=== PATIENT | female | born 1955 | race Caucasian/White ===

== ENCOUNTER → 2016-10-16 | Outpatient (REF) | payer BC | LOC: M SFHCWAGY 14:44 | PROVIDERS: ATTEND Nurse Practitioner Family | DX: Z12.72 Encounter for screening for malignant neoplasm of vagina (principal) ==

== ENCOUNTER → 2016-10-16 | Outpatient (CLI) | payer OTHER ==
--- NOTE | 2016-10-16 16:03 | REPMRS ---
Patient History The patient states she had a clinical breast exam in 10/2016. Patient is postmenopausal. Family history of breast cancer in sister at age 52. Digital Woman Screen Mammo: October 16, 2016 - Exam #: [id number] Bilateral CC and MLO view(s) were taken. Technologist: Chary Reyes, Technologist Prior study comparison: October 30, 2011, digital woman screen mammo performed at [facility] to [facility]. October 24, 2010, bilateral bilat screen digital mammo performed at [facility] to [facility]. FINDINGS: The breast tissue is heterogeneously dense. This may lower the sensitivity of mammography. There has been no change in the appearance of the mammogram from the prior studies. There is a moderate amount of residual fibroglandular tissue which is fairly symmetric. There is no interval development of dominant mass, areas of architectural distortion, or clustered microcalcification typical of malignancy. ASSESSMENT: BI-RADS/ACR category 1 mammogram. Negative. Recommendation Routine screening mammogram in 1 year (for women over age 40). This mammogram was interpreted with the aid of an FDA-approved computer-aided dectection system. Electronically Signed By: Jim Chadwick MD 10/16/16 [id number]
== END ==
LOC: M WHC 14:34
PROVIDERS: ATTEND Nurse Practitioner Family
DX: Z12.31 Encounter for screening mammogram for malignant neoplasm of breast (principal); Z80.3 Family history of malignant neoplasm of breast

== ENCOUNTER → 2017-11-26 | Outpatient (REF) | payer BC ==
[2017-11-27 11:26] LABS: HIV 1&2 SCREEN CENTAUR NEGATIVE (NEGATIVE)
== END ==
LOC: M SFHCWAGY 16:58
DX: Z11.59 Encounter for screening for other viral diseases (principal); Z11.4 Encounter for screening for human immunodeficiency virus [HIV]
CPT/HCPCS: 86803

== ENCOUNTER → 2017-11-26 | Outpatient (CLI) | payer BC | LOC: M WHC 14:35 | DX: Z12.31 Encounter for screening mammogram for malignant neoplasm of breast (principal) | CPT/HCPCS: 77067 ==

== ENCOUNTER → 2018-04-01 | Outpatient (CLI) | payer BC ==
[2018-04-01 18:16] LABS: BASO % 0.6 % (0.0-1.0); EOS # 0.3 10^3/uL (0.0-0.50); EOS % 5.8 % (0.0-3.0); HEMATOCRIT 39.6 % (36.0-47.0); IMMATURE GRANULOCYTE % 0.2 % (0-3.0); LYMPH # 1.7 10^3/uL (1.5-4.5); MEAN CORPUSCULAR HGB CONC 32.8 g/dl (32.0-36.5); MEAN CORPUSCULAR VOLUME 94.3 fl (80.0-96.0); MONO # 0.4 10^3/uL (0.0-0.8); MONO % 8.4 % (0.0-5.0); NEUTROPHILS # 2.3 10^3/uL (1.8-7.7); PLATELET COUNT, AUTOMATED 261 10^3/uL (150-450); RED CELL DISTRIBUTION WIDTH 13.4 % (11.5-14.5); WHITE BLOOD COUNT 4.7 10^3/uL (4.0-10.0)
[2018-04-01 18:34] LABS: C REACTIVE PROTEIN QUANTITATIV < 0.30 MG/DL (0.00-0.30)
[2018-04-01 18:49] LABS: ERYTHROCYTE SEDIMENTATION RATE 24 mm/hr (0-30)
== END ==
LOC: M SMT 11:33
DX: S83.231D Complex tear of medial meniscus, current injury, right knee, subsequent encounter (principal); X58.XXXD Exposure to other specified factors, subsequent encounter; Y92.9 Unspecified place or not applicable
CPT/HCPCS: 86140

== ENCOUNTER → 2018-05-21 | Outpatient (CLI) | payer BC ==
[~2018-05-21] MED LIST: GLUCAGON FOR INJ 1 MG VIAL (J1610) As Ordered; ISOVUE-370 76% 100ML VIAL (Q9967) As Ordered; VoLumen 0.1% SUSPENSION 450ML BOTTLE As Ordered
== END ==
LOC: M RAD 11:46
DX: K22.70 Barrett's esophagus without dysplasia (principal); K21.9 Gastro-esophageal reflux disease without esophagitis; K44.9 Diaphragmatic hernia without obstruction or gangrene; Q45.3 Other congenital malformations of pancreas and pancreatic duct; R19.7 Diarrhea, unspecified
CPT/HCPCS: Q9967

== ENCOUNTER → 2018-11-27 | Outpatient (CLI) | payer BC ==
--- NOTE | 2018-11-27 09:59 | REPMRS ---
Patient History The patient states she had a clinical breast exam in 10/2018. Family history of breast cancer at age 52 in sister. No Hormone Replacement Therapy 3D TOMOSYNTHESIS WAS PERFORMED. Digital Woman Screen Mammo: November 27, 2018 - Exam #: [id number] Bilateral CC and MLO view(s) were taken. Technologist: Chary Reyes, Technologist Prior study comparison: November 26, 2017, digital woman screen mammo performed at [facility]. October 16, 2016, digital woman screen mammo performed at [facility]. FINDINGS: The breast tissue is heterogeneously dense. This may lower the sensitivity of mammography. There has been no change in the appearance of the mammogram from the prior studies. There is a moderate amount of residual fibroglandular tissue which is fairly symmetric. There is no interval development of dominant mass, areas of architectural distortion, or clustered microcalcification typical of malignancy. Assessment: BI-RADS/ACR category 1 mammogram. Negative Mammogram. Recommendation Routine screening mammogram in 1 year (for women over age 40). This mammogram was interpreted with the aid of an FDA-approved computer-aided dectection system. Electronically Signed By: Jim Chadwick MD 11/27/18 [id number]
== END ==
LOC: M WHC 08:34
PROVIDERS: ATTEND Nurse Practitioner Family
DX: Z12.31 Encounter for screening mammogram for malignant neoplasm of breast (principal)

== ENCOUNTER → 2018-11-27 | Outpatient (REF) | payer BC ==
[2018-11-29 16:40] LABS: HPV HYBRID CAPTURE II Negative (Negative)
== END ==
LOC: M SFHCWAGY 08:59
PROVIDERS: ATTEND Nurse Practitioner Family
DX: Z12.4 Encounter for screening for malignant neoplasm of cervix (principal)

== ENCOUNTER → 2018-12-26 | Outpatient (CLI) | payer BC ==
[~2018-12-26] MED LIST changes: +BIOT10TA2 PO; +CAL-TAB4 PO; +CULTCAP2 PO; +D-10TAB2 PO; -GLUCAGON FOR INJ 1 MG VIAL (J1610) As Ordered; -ISOVUE-370 76% 100ML VIAL (Q9967) As Ordered; +MULTCAP PO; +OMEP40CA2 PO; +RA T500C2 PO; +VITA500T3 PO; -VoLumen 0.1% SUSPENSION 450ML BOTTLE As Ordered
[2018-12-26 08:08] LABS: HEMATOCRIT 41.9 % (36.0-47.0); HEMOGLOBIN 13.6 g/dl (12.0-15.5); MEAN CORPUSCULAR HEMOGLOBIN 31.4 pg (27.0-33.0); MEAN CORPUSCULAR HGB CONC 32.5 g/dl (32.0-36.5); MEAN CORPUSCULAR VOLUME 96.8 fl (80.0-96.0); PLATELET COUNT, AUTOMATED 261 10^3/uL (150-450); RED BLOOD COUNT 4.33 10^6/uL (4.00-5.40)
[2018-12-26 08:19] LABS: INR 0.95; PROTHROMBIN TIME 12.8 SECONDS (12.1-14.4)
[2018-12-26 08:32] LABS: ERYTHROCYTE SEDIMENTATION RATE 11 mm/hr (0-30)
[2018-12-26 08:35] LABS: ALBUMIN 3.3 GM/DL (3.2-5.2); ALT/SGPT 20 U/L (12-78); BILIRUBIN,TOTAL 0.4 MG/DL (0.2-1.0); BLOOD UREA NITROGEN 11 MG/DL (7-18); CALCIUM LEVEL 8.4 MG/DL (8.8-10.2); CARBON DIOXIDE LEVEL 28 MEQ/L (21-32); CHLORIDE LEVEL 111 MEQ/L (98-107); CREATININE FOR GFR 0.76 MG/DL (0.55-1.30); GLOMERULAR FILTRATION RATE > 60.0 (>45); GLUCOSE, FASTING 65 MG/DL (70-100); POTASSIUM SERUM 3.8 MEQ/L (3.5-5.1); SODIUM LEVEL 144 MEQ/L (136-145); TOTAL PROTEIN 6.2 GM/DL (6.4-8.2)
--- NOTE | 2018-12-26 09:38 | REP ---
Chest x-ray: Two views. History: Right knee arthritis. Comparison study: April 03, 2016. Findings: The lungs are well inflated and clear. Pleural angles are sharp. Heart size is normal. There are degenerative changes in the thoracic spine. Surgical clips are seen in the right upper quadrant post cholecystectomy. Impression: No active disease. Electronically Signed by Joe Rutledge MD 12/26/2018 09:29 A
--- NOTE | 2018-12-27 12:04 | ECGEPIP ---
Stationary ECG Study [facility] Test Date: 2018-12-26 Pat Name: JOHNSON HUGHES Department: Room: - Gender: F Bundle Cutter: : 1955 Requested By: Conner Shaver Order Number: [id number] Reading MD: Kenney Sams Measurements Intervals [place] Rate: 76 P: 44 [place]: 174 QRS: 24 QRSD: 90 T: 14 QT: 372 QTc: 419 Interpretive Statements SINUS RHYTHM Electronically Signed On 12-27-2018 12:04:44 EDT by Kenney Sams
== END ==
LOC: M LAB 07:32
PROVIDERS: ATTEND Orthopaedic Surgery
DX: Z01.818 Encounter for other preprocedural examination (principal); M17.11 Unilateral primary osteoarthritis, right knee

== ENCOUNTER 2019-01-15 11:11 | Inpatient (IN) | payer BC ==
--- NOTE | 2019-01-07 16:03 | HPE ---
DATE OF ADMISSION: 01/15/2019 ATTENDING PHYSICIAN: Dr. Conner Shaver CHIEF COMPLAINT: Right knee pain and stiffness. HISTORY: The patient is a 63-year-old female with progressively worsening right knee pain and stiffness. She failed to improve with conservative measures. She continues to have symptoms with weightbearing activities and activities of daily living. The patient has consented for an elective right total knee arthroplasty with Dr. Shaver for her continued symptoms. Medical optimization completed by Dr. Garcia and was reviewed today. CURRENT MEDICATIONS: - daily multivitamin - vitamin D3 1000 units daily - vitamin C 500 mg daily - calcium with vitamin D 600/200 mg/units daily - Biotin 5000/5 mg daily - omeprazole 40 mg daily - curcumin 95/500 mg daily - kiersten root daily ALLERGIES TO MEDICATIONS: MORPHINE, TRAMADOL. CHRONIC MEDICAL CONDITIONS: 1. Gastroesophageal reflux disease. 2. Asthma. 3. Degenerative joint disease. PAST SURGICAL HISTORY: 1. Lumbar fusion. 2. Appendectomy. 3. Left knee arthroscopy. 4. Ankle surgery. 5. Exploratory laparoscopy for tubal . 6. Hysterectomy with bilateral salpingo-oophorectomy (BSO). 7. Colonoscopy. 8. Tubal ligation. 9. Bunionectomy. 10. Gastric bypass. 11. Cholecystectomy. SOCIAL HISTORY: The patient is and lives alone. She has never used tobacco use and occasionally uses alcohol. FAMILY HISTORY: Noncontributory. REVIEW OF SYSTEMS: The patient denies fevers, chills, nausea, vomiting or diarrhea. She denies chest pain, shortness of breath, lightheadedness, dizziness or headaches. She continues to have right knee pain with weightbearing activities and activities of daily living. PHYSICAL EXAMINATION: GENERAL: Well-nourished, well-developed female in no apparent distress. She is alert, oriented and cooperative. Mood and affect are appropriate. VITAL SIGNS: Height 62.25 inches, weight 211.2 pounds, temperature 98.4, blood pressure 140/94, respirations 12. NECK: Supple without lymphadenopathy. HEART: Regular rate and rhythm. LUNGS: Clear to auscultation bilaterally. ABDOMEN: Soft and nontender to palpation. Bowel sounds are present. MUSCULOSKELETAL: Inspection of the right knee does show previous arthroscopy portal holes. There was tenderness along the medial and lateral joint lines. The patient can extend knee to 2 degrees and flex to 95 degrees. Right lower extremity strength is 5/5. No hip irritability was elicited with range of motion testing. Her calf is soft, nontender to palpation with no palpable cords noted. She is neurovascularly intact distally. LABORATORY DATA: EKG reveals sinus rhythm. Chest x-ray shows no active disease. Right knee x-ray notable for end-stage degenerative changes. Comprehensive metabolic profile: Fasting glucose decreased at 65, BUN 11, creatinine for GFR 0.76, GFR greater than 60, sodium 144, potassium 3.8, chloride elevated at 111, carbon dioxide 28, anion gap decreased at 5, calcium decreased at 8.4, AST 18, ALT 28, alkaline phosphatase 112, total bilirubin 0.4, total protein decreased at 6.2, albumin 3.3, albumin-globulin ratio 1.14. Complete blood count: ESR 11, WBCs 4, RBCs 4.33, hemoglobin 13.6, hematocrit 41.9, platelets 261. Prothrombin time 12.8, INR 0.95. IMPRESSION: Right knee osteoarthritis with x-rays notable for end-stage degenerative changes. PLAN: The patient has consented for an elective right total knee arthroplasty with Dr. Shaver for her continued symptoms. Medical optimization completed with Dr. Bereket Garcia. [facility] MED[facility] CENTERLuciana
[~2019-01-15] VITALS: Ht 162.6 cm; Wt 96.2 kg
[~2019-01-15 11:11] MED LIST changes: +MIDAZOLAM INJ 2 MG/2 ML VIAL (J2250) IV SCH; +fentaNYL 100 MCG/2 ML INJECTION (J3010) IV SCH
[2019-01-15] MEDS ORDERED: ceFAZolin 2 GM/D5W 50 ML IV BAG (J0690 PER 500MG) As Ordered ONE (11:28)
[2019-01-15] MEDS ORDERED: LR 1,000 ML IV ONE (11:30)
[2019-01-15] MEDS ORDERED: MIDAZOLAM INJ 2 MG/2 ML VIAL (J2250) As Ordered ONE ×2 (12:55→14:30)
[2019-01-15] MEDS ORDERED: fentaNYL 100 MCG/2 ML INJECTION (J3010) As Ordered ONE ×3 (12:55→16:02)
--- NOTE | 2019-01-15 13:29 | IPN ---
DATE: Patient seen and examined. She wishes to go ahead with a right total knee arthroplasty. Her knee was initialed. She understands the nature of the procedure, the risks of bleeding, infection, damage to nerves, vessels, persistent pain, wear loosening, blood clots, medical problems, , among others. She does have morbid obesity, which increases her risks, and she is aware that.
[2019-01-15] MEDS ORDERED: ceFAZolin 1GM INJ (J0690 PER 500MG) As Ordered ONE (13:54)
[2019-01-15] MEDS ORDERED: TRANEXAMIC ACID 100 MG/ML 10ML VIAL As Ordered ONE (13:54)
[2019-01-15] MEDS ORDERED: EPINEPHrine INJ 1 MG/ML 1ML AMP As Ordered ONE (13:55)
[2019-01-15] MEDS ORDERED: BUPIVACAINE LIPOSOME/PF 1.3% 20ML VIAL (13.3MG/ML)(EXPAREL)(C9290 PER1MG) As Ordered ONE (13:55)
[2019-01-15] MEDS ORDERED: ROCURONIUM BROMIDE 50 MG/5 ML VIAL As Ordered ONE (14:30)
[2019-01-15] MEDS ORDERED: LIDOCAINE 2% INJ 100 MG/5 ML SDV (FOR ANES.) As Ordered ONE (14:30)
[2019-01-15] MEDS ORDERED: PROPOFOL 200 MG/20 ML VIAL As Ordered ONE (14:30)
[2019-01-15] MEDS ORDERED: ACETAMINOPHEN 1000MG 100ML IV BTL (OFIRMEV) (J0131 PER 10MG) As Ordered ONE (14:39)
[2019-01-15] MEDS ORDERED: DESFLURANE 240 ML INHALANT As Ordered ONE (14:41)
[2019-01-15] MEDS ORDERED: ONDANSETRON 4MG/2ML VIAL (J2405) As Ordered ONE (14:43)
[2019-01-15] MEDS ORDERED: dexameTHASONE 4 MG/ML 1ML VIAL (J1100) As Ordered ONE (14:43)
[2019-01-15] MEDS ORDERED: SUGAMMADEX SODIUM 500 MG/5 ML VIAL (BRIDION) As Ordered ONE (15:23)
[2019-01-15] MEDS ORDERED: HYDROmorphone HCL 2 MG/ML 1ML VIAL (J1170) As Ordered ONE (15:25)
[2019-01-15] MEDS ORDERED: ROPIvacaine 0.5% 30 ML INJECTION (J2795 PER 1MG) ONE (15:30)
[2019-01-15] MEDS ORDERED: dexameTHASONE 10 MG/1 ML VIAL PRES.FREE (J1100) ONE (15:30)
[2019-01-15] MEDS: oxyCODONE 5MG TAB PO PRN ×2 (16:00→16:46)
[2019-01-15] MEDS: fentaNYL 100 MCG/2 ML INJECTION (J3010) IV PRN ×4 (16:00→16:21)
[2019-01-15] MEDS ORDERED: FLEET ENEMA PR PRN (16:00)
[2019-01-15] MEDS ORDERED: ACETAMINOPHEN TAB 650MG DOSE (2X325MG) PO PRN (16:00)
[2019-01-15] MEDS ORDERED: oxyCODONE 5MG TAB As Ordered ONE (16:02)
[2019-01-15] MEDS ORDERED: LR 1,000 ML IV SCH (16:15)
[2019-01-15] MEDS ORDERED: NORCO, ANEXSIA 5/325MG TABLET (HYDROcodone/ACETAMINOPHEN) PO PRN (16:15)
[2019-01-15] MEDS ORDERED: ONDANSETRON 4MG/2ML VIAL (J2405) IV PRN (16:15)
[2019-01-15] MEDS ORDERED: HYDROMORPHONE HCL 0.5 MG/ 0.5 ML SYRINGE (J1170 PER 1) IV PRN ×2 (16:15)
[2019-01-15] MEDS: ONDANSETRON 4MG/2ML VIAL (J2405) IV PRN ×2 (16:20→17:27)
--- NOTE | 2019-01-15 16:23 | CR.PDOC ---
General Date of Consultation: January 15, 2019 Consultation REASON FOR CONSULTATION/CHIEF COMPLAINT:End stage right knee osteoarthritis s/p elective right knee total arthroplasty HISTORY OF PRESENT ILLNESS: Pt is a 63 yo female with PMH of GERD, asthma, and degenerative joint disease s/p right knee arthroplasty. She reported that she has some headache that she had prior to the surgery at the inferior occipital region; she also reported there's some numbness in her right foot. Pt stated that she has sharp pain in the popliteal fossa after the procedure. Denies any chest pain, palpitation, or dyspnea. Limited info was able to be obtained from patient as pt was just s/p arthroplasty surgery; majority info gathered from past medical records ALLERGIES: Please see below. HOME MEDICATIONS: Please see below. PAST MEDICAL HISTORY: 1. GERD 2. Asthma 3. Degenerative joint disease PAST SURGICAL HISTORY: 1. Lumbar fusion 2. Appendectomy 3. Left knee arthroscopy 4. Ankle surgery 5. Exploratory laparoscopy for tubal 6. Hysterectomy with bilateral salpingo-oophorectomy 7.Colonoscopy 8. Tubal ligation 9. Bunionectomy 10. Gastric bypass 11.Cholecystectomy FAMILY HISTORY: Non-contributory REVIEW OF SYSTEMS: HEENT: Headache in inferior occipital lobe region CARDIOVASCULAR: Denies chest pain, palpitation RESPIRATORY: Denies SOB MUSCULOSKELETAL: Pain in right sided popliteal fossa PHYSICAL EXAMINATION: VITAL SIGNS: Please see below. GENERAL APPEARANCE: Patient is alert and awake HEENT: Head normocephalic, atraumatic, RESPIRATORY: CTA b/l, no rales, wheezing, or rhonchi CARDIOVASCULAR: RRR, no murmur, normal S1 and S2 ABDOMEN: soft, bowel sound aus in all 4 quadrants, no guarding or distension, no tenderness upon palpation in all 4 quadrants EXTREMITIES: Right knee wrapped with dressings. No obvious bleeding or ecchymosis in the exposed area. Pt reported no/decreased sensation on ventral right foot. NEUROLOGICAL: Mildly slowed response but memory and cognitive function grossly intact LABORATORY DATA: Please see below. ASSESSMENT/PLAN: 1. End stage right knee osteoarthritis s/p elective right knee total arthroplasty. Dilaudid and acetaminophen PRN for pain; vital signs as scheduled. CBC and BMP ordered. Oxy therapy. Activity per ortho. PT/OT ordered. Incentive spirometry and lung expansion therapy. ARU admission screen 2. Asthma. Resp treatment as needed. Vital signs as scheduled. Cont to monitor the pt 3. GERD. Cont home med Omperazole 40mg QD PO. Vital Signs/I&O Vital Signs Date Time Temp Pulse Resp B/P (MAP) Pulse Ox O2 Delivery O2 Flow Rate FiO2 01/15/19 16:05 81 18 111/62 (78) 93 2 01/15/19 15:53 97.4 Allergies Coded Allergies: FRUIT (Verified Allergy, Severe, ITCHING, THROAT SWELLING, DIFFICULTY BREATHING, 01/15/19) tree nut (Verified Allergy, Severe, itching throat swells breathing, 01/15/19) morphine (Verified Allergy, Mild, ITCHING NAUSEA, 01/15/19) tetanus toxoid, adsorbed (Verified Adverse Reaction, Intermediate, swelling reddness arm, 01/15/19) tramadol (Verified Adverse Reaction, Intermediate, FELT LIKE HEART ATTACK heaviness in chest, 01/15/19) Home Medications Scheduled Biotin (Biotin) 10 Mg Tablet, 10 MG PO BID, (Reported) Calcium Citrate/Vitamin D2 (Pola-Citrate Plus Vitamin D Tab) 1 Each Tablet, 1 TAB PO DAILY, (Reported) Cholecalciferol (Vitamin D3) (Vitamin D3) 1,000 Unit Tablet, 1,000 UNIT PO BID, (Reported) Cyanocobalamin (Vitamin B-12) (Vitamin B-12) 500 Mcg Tablet, 500 MCG PO DAILY, (Reported) L. Rhamnosus GG/Inulin (Culturelle Capsule) 1 Each Cap.sprink, 1 CAP PO DAILY, (Reported) Multivitamin (Multivitamins) 1 Each Capsule, 1 CAP PO DAILY, (Reported) Omeprazole (Omeprazole) 40 Mg Capsule.dr, 40 MG PO DAILY, (Reported) Turmeric Root Extract (Turmeric) 500 Mg Capsule, 500 MG PO DAILY, (Reported) MICHELINE BASSETT DO January 15, 2019 16:23
[2019-01-15 16:35] LABS: HEMATOCRIT 38.4 % (36.0-47.0); HEMOGLOBIN 12.5 g/dl (12.0-15.5); MEAN CORPUSCULAR HEMOGLOBIN 32.3 pg (27.0-33.0); MEAN CORPUSCULAR HGB CONC 32.6 g/dl (32.0-36.5); MEAN CORPUSCULAR VOLUME 99.2 fl (80.0-96.0); PLATELET COUNT, AUTOMATED 180 10^3/uL (150-450); RED BLOOD COUNT 3.87 10^6/uL (4.00-5.40); WHITE BLOOD COUNT 4.7 10^3/uL (4.0-10.0)
--- NOTE | 2019-01-15 17:00 | REP ---
AP LATERAL RIGHT KNEE, TWO VIEWS: HISTORY: Postop. The patient is status-post right total knee replacement. There is no acute fracture or dislocation. Subcutaneous air and surgical penny are present in the overlying soft tissue. IMPRESSION:The patient is status-post right total knee replacement. There is anatomic alignment. Electronically Signed by Julián Hollingsworth MD 01/15/2019 05:01 P
[2019-01-15 17:03] VITALS: BP 114/56
[2019-01-15 17:04] LABS: BLOOD UREA NITROGEN 10 MG/DL (7-18); CARBON DIOXIDE LEVEL 28 MEQ/L (21-32); CHLORIDE LEVEL 110 MEQ/L (98-107); CREATININE FOR GFR 0.66 MG/DL (0.55-1.30); GLOMERULAR FILTRATION RATE > 60.0 (>45); GLUCOSE, FASTING 131 MG/DL (70-100); POTASSIUM SERUM 3.8 MEQ/L (3.5-5.1); SODIUM LEVEL 143 MEQ/L (136-145)
[2019-01-15] MEDS: LR 1,000 ML IV SCH ×2 (17:08→20:23)
[2019-01-15 17:20] VITALS: BP 125/61
--- NOTE | 2019-01-15 17:32 | RO ---
DATE OF PROCEDURE: 01/15/2019 PREOPERATIVE DIAGNOSIS: Right knee osteoarthritis. POSTOPERATIVE DIAGNOSIS: Right knee osteoarthritis. OPERATIVE PROCEDURE: Right total knee arthroplasty using an Attune rotating platform size 5 narrow femur, size 5 tibial tray, 7 polyethylene and a 32 patellar button. SURGEON: Conner Shaver MD ALLERGIST/PEDIATRIC PULMONOLOGIST: Caprice Shaver NP ANESTHESIA: General. ESTIMATED BLOOD LOSS: Less than 50 mL COMPLICATIONS: None. INDICATION: 63-year-old woman who has had gradually worsening right knee pain. She wished to go ahead with the surgical treatment having failed conservative management. DESCRIPTION OF PROCEDURE: The patient was taken to the operating room and placed in the supine position after general anesthesia was induced. The right lower extremity was prepped and draped in the usual sterile fashion. A tourniquet was inflated after time-out was performed. I then created a longitudinal incision over the anterior aspect of the knee and sharp dissection was carried out down through subcutaneous tissue. I then performed a medial parapatellar arthrotomy per routine and everted the patella to the best of my ability. However, with her obesity it was difficult to get the patella everted. I tried making a pouch anteriorly. I did a lateral release because the retinaculum was tight. There was a fatty lipoma in the anterior soft tissues just anterior to the patella which was excised. I then used the canal initiating reamer on the femoral side followed by the intramedullary guide. This was pinned in place with appropriate amount of valgus and a 9 mm cut. The distal femoral cut was made by the special ed assistant under my direct visualization. We protected soft tissues carefully. The femur was sized to be a 5. The drill holes were placed in the end of the femur with the external rotation dialed in and the 5 cutting block was then secured. The remaining four cuts were made. I then freed up to a posterior cruciate ligament (PCL) attachment, placed posterior retractors and medial and lateral retractors and then used the tibial alignment guide to create the proximal tibia cut. The appropriate amount of valgus and posterior slope was dialed in. This was pinned in place at about 4 mm off the low side. The saw cut was made protecting soft tissues and removed. I removed any osteophytes. I removed any soft tissue and posterior osteophytes. I created a sulcus cut on the end of the femur with the guide. I then sized the tibia to be a size 5. I drilled and broached and the trial components were then inserted and I had also used the spacer block and decided on a size 7 thickness polyethylene, which had excellent fit and fill. The patella was then freehand cut and I sized it to be a 32. The drill holes were placed in the end of the femur and in the patella. The special ed assistant prepared the bone cement in the modern technique. I prepared the bony surfaces, irrigating drying the bony surfaces carefully. I had also injected the Exparel into the deep tissues. Once the surfaces were carefully dried I cemented on the three components, placed the polyethylene and removing any excess bone cement. Patellar clamp was placed. I irrigated copiously, placed the TXA solution. Once the deep tissues had been carefully irrigated, I then closed the deep layer with #1 Vicryl suture running Stratafix suture. We irrigated, closed the subcutaneous with #2-0 Vicryl and the skin with penny. Tourniquet was deflated. Sterile dressing was applied and she was taken to recovery room in stable condition. There were no known complications. The special ed assistant was instrumental in holding retractors and mixing the bone cement, assisting in wound closure, making one of the cuts. ADDENDUM This is coded as unusually difficult case due to the patient's morbid obesity and difficulty with exposure and everting the patella, the lateral release. It prolonged the case and made it technically more challenging due to her BMI that was approaching 40. MTDD
[2019-01-15 18:35] VITALS: BP 109/53
[2019-01-15] MEDS: VITAMIN D 1,000 INTERNATIONAL UNITS TABLET PO SCH (20:23)
[2019-01-15 22:00] VITALS: BP 123/63
[2019-01-16] VITALS (7 sets, daily range): BP systolic 112–115; BP diastolic 57–65; O2SAT 90–98
[2019-01-16 06:30] LABS: HEMATOCRIT 33.8 % (36.0-47.0); HEMOGLOBIN 11.1 g/dl (12.0-15.5); MEAN CORPUSCULAR HEMOGLOBIN 31.7 pg (27.0-33.0); MEAN CORPUSCULAR HGB CONC 32.8 g/dl (32.0-36.5); MEAN CORPUSCULAR VOLUME 96.6 fl (80.0-96.0); PLATELET COUNT, AUTOMATED 192 10^3/uL (150-450); WHITE BLOOD COUNT 7.9 10^3/uL (4.0-10.0)
[2019-01-16] MEDS ORDERED: PERCOCET 5MG/325MG TAB PO PRN ×2 (06:30)
[2019-01-16] MEDS ORDERED: PERC5TAB12 PO (08:28)
[2019-01-16] MEDS ORDERED: XARE10TA PO (08:28)
[2019-01-16] MEDS ORDERED: ONDA4TAB6 PO (08:36)
[2019-01-16] MEDS ORDERED: MULTIVITAMINS/MINERALS THERAP 1 TAB PO SCH (09:00)
[2019-01-16] MEDS ORDERED: CYANOCOBALAMIN 500 MCG TAB PO SCH (09:00)
[2019-01-16] MEDS ORDERED: OMEPRAZOLE 20 MG CAP PO SCH (09:00)
[2019-01-16] MEDS: MOM 30ML SUSPENSION UDC PO SCH ×2 (09:00→09:19)
[2019-01-16] MEDS ORDERED: MIRALAX *UNIT DOSE* 17GM PACKET PO SCH (09:00)
[2019-01-16] MEDS: VITAMIN D 1,000 INTERNATIONAL UNITS TABLET PO SCH (09:20)
--- NOTE | 2019-01-16 12:54 | IPNPDOC ---
Date Seen The patient was seen on 01/16/19. Progress Note SUBJECTIVE: Patient was seen and examined at the bedside with sitting by the window. Pt had just received iv morphine, and was slightly lethargic. She c/o "I'm so sore, and my knee is achy." NO c/o sob, chest pain,tightness. OBJECTIVE: PHYSICAL EXAMINATION: VITAL SIGNS: Please see below. GENERAL APPEARANCE: Patient is alert and awake HEENT: Head normocephalic, atraumatic, RESPIRATORY: CTA b/l, no rales, wheezing, or rhonchi CARDIOVASCULAR: RRR, no murmur, normal S1 and S2 ABDOMEN: soft, bowel sound in all 4 quadrants, no guarding or distension, no tenderness upon palpation in all 4 quadrants EXTREMITIES: postop Right knee wrapped with dressings. pink color warm to touch LABORATORY DATA,IMAGING STUDIES, MICROBIOLOGY: Please see below. ASSESSMENT/PLAN: Pt is a 63 yo female with PMH of GERD, asthma, and degenerative joint disease s/p right knee arthroplasty. She reported that she has some headache that she had prior to the surgery at the inferior occipital region; she also reported there's some numbness in her right foot. Pt stated that she has sharp pain in the popliteal fossa after the procedure. Denies any chest pain, palpitation, or dyspnea. right knee osteoarthritis s/p elective right knee total arthroplasty. Dilaudid and acetaminophen PRN for pain; vital signs as scheduled. CBC and BMP ordered. Oxy therapy. Activity per ortho. PT/OT ordered. Incentive spirometry and lung expansion therapy. ARU admission screen Asthma. Resp treatment as needed. Vital signs as scheduled. Cont to monitor the pt GERD. Cont home med Omperazole 40mg QD PO. History of Gastric bypass. no c/o DVT prophylaxis: per ortho disposition: PT/OT. A-FIB/CHADSVASC A-FIB History Current/History of A-Fib/PAF?: No Current Oral Anticoagulant The: No VS, I&O, 24H, Fishbone Vital Signs/I&O Vital Signs Date Time Temp Pulse Resp B/P (MAP) Pulse Ox O2 Delivery O2 Flow Rate FiO2 01/16/19 11:30 16 01/16/19 06:00 97.5 75 115/57 (76) 99 2.0 I&O- Last 24 Hours up to 6 AM 01/16/19 06:00 Intake Total 3553 ml Output Total 1100 ml Balance 2453 ml Laboratory Data 24H LABS Laboratory Tests 2 01/15/19 16:25: Nucleated Red Blood Cells % (auto) 0.0, Anion Gap 5L, Glomerular Filtration Rate > 60.0, Blood Urea Nitrogen 10, Creatinine 0.66, Sodium Level 143, Potassium Level 3.8, Chloride Level 110H, Carbon Dioxide Level 28, Calcium Level 8.0L 01/16/19 06:11: Nucleated Red Blood Cells % (auto) 0.0 CBC/BMP Laboratory Tests 01/15/19 16:25 Red Blood Count 3.87 L, Mean Corpuscular Volume 99.2 H, Mean Corpuscular Hemoglobin 32.3, Mean Corpuscular Hemoglobin Concent 32.6, Red Cell Distribution Width 12.2, Calcium Level 8.0 L 01/16/19 06:11 Red Blood Count 3.50 L, Mean Corpuscular Volume 96.6 H, Mean Corpuscular Hemoglobin 31.7, Mean Corpuscular Hemoglobin Concent 32.8, Red Cell Distribution Width 11.9 ALYSSA MADERA MD January 16, 2019 12:53
--- NOTE | 2019-01-16 14:57 | IPN ---
DATE: 01/16/2019 CHIEF COMPLAINT: Postoperative day #1 right total knee arthroplasty by Dr. Shaver. HISTORY OF PRESENT ILLNESS: This 63-year-old female had a right total knee arthroplasty yesterday by Dr. Shaver. She is doing well. No concerns aside from a little bit of pain at the right lateral thigh. Otherwise, no shortness breath or chest pain. As she is doing well with no nursing concerns. PHYSICAL EXAMINATION: Well-appearing 63-year-old female in no acute distress. She is alert and oriented times three. Mood and affect pleasant and positive. She is lying supine in hospital bed. We took down the dressing. There is a moderate amount strike through the distal aspect of dressing which appears stable. She could wiggle toes, dorsiflex and plantarflex the foot. The foot is warm and well perfused with good pedal pulses. Vital signs were stable this morning. Respiratory rate 20, 94% on 2 liters nasal prongs. Laboratory examination this morning revealed hemoglobin of 11.1 down 12.5 preoperatively. ASSESSMENT/PLAN: 63-year-old female we will mobilize weightbearing as tolerated. She will be discharged home when she is safe to mobilize and followup with Dr. Shaver.
[2019-01-16] MEDS ORDERED: RIVAROXABAN 10 MG TAB (XARELTO) PO SCH (18:00)
--- NOTE | 2019-02-02 08:29 | DSES ---
DATE OF ADMISSION: 01/15/2019 DATE OF DISCHARGE: 01/18/2019 ATTENDING PHYSICIAN: Dr. Shaver. ADMISSION DIAGNOSIS: Osteoarthritis right knee. OTHER DIAGNOSES: 1. Gastric reflux disease. 2. Asthma. DISCHARGE DIAGNOSIS: Osteoarthritis right knee status post right total knee arthroplasty. OPERATION PERFORMED: Right total knee arthroplasty. HISTORY: This is a 63-year-old female patient with progressively worsening right knee pain and stiffness. She elected for surgery for continued symptoms. She was admitted for elective knee replacement on right side. HOSPITAL COURSE: The patient was admitted on day of surgery underwent a right total knee arthroplasty which was uneventful. She did well in the postoperative period and her hospital course was without complications. She was up with physical therapy per their protocol and her pain was controlled. On day of discharge she was doing well, weightbearing as tolerated on her right lower extremity. She will use Xarelto 10 mg per the protocol as well as 30 days of thromboembolitic deterrent (JOHN) stockings for deep venous thrombosis (DVT) prophylaxis. She will move her right knee to prevent stiffness. She will follow up in our office in 10-14 days. She will resume her preoperative medications and diet. She will use oral pain medications for pain control. She was given instructions to include, but not limited to, wound monitoring and activity limitations. Please refer to the medical record for further details.
== END 2019-01-16 12:40 | disposition home or self-care (01) | DRG 302 ==
LOC: M OR 11:11 → M MS5PR 17:00
PROVIDERS: ADMIT Orthopaedic Surgery; ATTEND Orthopaedic Surgery
PROC: 0SRC0J9 Replacement of Right Knee Joint with Synthetic Substitute, Cemented, Open Approach (ICD-10-PCS; principal; 2019-01-15 13:00)
DX: M17.11 Unilateral primary osteoarthritis, right knee (principal); J45.909 Unspecified asthma, uncomplicated; Z79.899 Other long term (current) drug therapy; K21.9 Gastro-esophageal reflux disease without esophagitis; Z88.5 Allergy status to narcotic agent; Z88.8 Allergy status to other drugs, medicaments and biological substances; Z88.7 Allergy status to serum and vaccine; Z91.018 Allergy to other foods

== ENCOUNTER → 2019-08-31 | Outpatient (CLI) | payer MEDICARE ==
[~2019-08-31] MED LIST changes: +CYAN500T8 PO; +D 202000 PO; -MIDAZOLAM INJ 2 MG/2 ML VIAL (J2250) IV SCH; -OMEP40CA2 PO; +OMEP40CA97 PO; +ONDA4TAB6 PO; +PERC5TAB12 PO; -VITA500T3 PO; +XARE10TA PO; -fentaNYL 100 MCG/2 ML INJECTION (J3010) IV SCH
--- NOTE | 2019-08-31 17:53 | REP ---
Clinical: Osteoarthritis . Comparison: 12/26/2018 . Technique: PA and lateral. Findings: The mediastinum and cardiac silhouette are normal. The lung khan are clear and without acute consolidation, effusion, or pneumothorax. The skeletal structures are intact and normal. Impression: 1. No acute cardiopulmonary process. Electronically Signed by Hardy Schmitt MD 08/31/2019 05:44 P
[2019-08-31 18:16] LABS: HEMATOCRIT 41.4 % (36.0-47.0); MEAN CORPUSCULAR HEMOGLOBIN 31.3 pg (27.0-33.0); MEAN CORPUSCULAR HGB CONC 31.4 g/dl (32.0-36.5); MEAN CORPUSCULAR VOLUME 99.8 fl (80.0-96.0); PLATELET COUNT, AUTOMATED 266 10^3/uL (150-450); RED BLOOD COUNT 4.15 10^6/uL (4.00-5.40)
[2019-08-31 18:20] LABS: INR 1.02; PROTHROMBIN TIME 13.1 SECONDS (11.8-14.0)
[2019-08-31 18:43] LABS: ALBUMIN 3.2 GM/DL (3.2-5.2); ALT/SGPT 22 U/L (12-78); BILIRUBIN,TOTAL 0.3 MG/DL (0.2-1.0); BLOOD UREA NITROGEN 9 MG/DL (7-18); CALCIUM LEVEL 8.4 MG/DL (8.8-10.2); CARBON DIOXIDE LEVEL 29 MEQ/L (21-32); CHLORIDE LEVEL 108 MEQ/L (98-107); CREATININE FOR GFR 0.62 MG/DL (0.55-1.30); GLOMERULAR FILTRATION RATE > 60.0 (>45); GLUCOSE, FASTING 99 MG/DL (70-100); POTASSIUM SERUM 3.8 MEQ/L (3.5-5.1); SODIUM LEVEL 144 MEQ/L (136-145); TOTAL PROTEIN 6.5 GM/DL (6.4-8.2)
[2019-08-31 18:47] LABS: ERYTHROCYTE SEDIMENTATION RATE 24 mm/hr (0-30)
--- NOTE | 2019-09-01 07:15 | ECGEPIP ---
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
== END ==
LOC: M LAB 16:52
PROVIDERS: ATTEND Internal Medicine
DX: M17.12 Unilateral primary osteoarthritis, left knee (principal)

== ENCOUNTER → 2020-01-29 | Outpatient (REF) | payer MEDICARE ==
[2020-01-29 12:06] LABS: BLOOD UREA NITROGEN 9 MG/DL (7-18); CALCIUM LEVEL 8.6 MG/DL (8.8-10.2); CARBON DIOXIDE LEVEL 31 MEQ/L (21-32); CHLORIDE LEVEL 110 MEQ/L (98-107); CREATININE FOR GFR 0.58 MG/DL (0.55-1.30); GLOMERULAR FILTRATION RATE > 60.0 (>45); GLUCOSE, FASTING 94 MG/DL (70-100); POTASSIUM SERUM 4.3 MEQ/L (3.5-5.1); SODIUM LEVEL 143 MEQ/L (136-145)
== END ==
LOC: M PLALAB 08:10
PROVIDERS: ATTEND Surgery
DX: C50.911 Malignant neoplasm of unspecified site of right female breast (principal)

== ENCOUNTER → 2020-02-11 | Outpatient (CLI) | payer MEDICARE ==
--- NOTE | 2020-02-11 15:37 | REP ---
ULTRASONOGRAPHY OF THE RIGHT AXILLA, NOT BREAST: Images provided show two solid nodules in the right axilla (not breast). One measures 1.3 x 1.5 x 0.8 cm and the other 0.7 x 0.9 x 0.4 cm. The smaller of the two has well demarcated peripheral hypoechogenicity and central echogenicity, but is not frankly reniform in shape. The larger of the two is of mixed echoes and not reniform in shape. IMPRESSION: The larger of the two nodules in the right axilla (not breast) does not have ultrasonographic characteristics of a completely benign or nonreactive lymph node. Ultrasonography cannot assess for degrees of malignancy.
--- NOTE | 2020-02-11 17:44 | REP ---
ULTRASOUND LEFT BREAST: Ultrasound left breast is requested by Dr. Samaniego at the 1 to 2-o'clock position. No cystic or solid nodule is seen at that location. IMPRESSION: ACR 1 negative ultrasound left breast in the region of 1 to 2-o'clock position, 8 cm from the nipple. No cystic or solid nodule is seen. Electronically Signed by Jim Chadwick MD 02/16/2020 06:17 P
== END ==
LOC: M WHC 10:40
PROVIDERS: ATTEND Surgery
DX: R59.0 Localized enlarged lymph nodes (principal); N63.20 Unspecified lump in the left breast, unspecified quadrant; R93.89 Abnormal findings on diagnostic imaging of other specified body structures

== ENCOUNTER → 2020-02-12 | Outpatient (CLI) | payer MEDICARE ==
[~2020-02-12] MED LIST changes: +PROHANCE 279.3MG/ML 15ML VIAL As Ordered ONE; +PROHANCE 279.3MG/ML 5ML VIAL As Ordered ONE
--- NOTE | 2020-02-15 09:52 | REP ---
BILATERAL BREAST MRI STUDY WITHOUT AND WITH IV GADOLINIUM: HISTORY: Malignant neoplasm of the right breast. No comparison breast MRI study. Comparison mammography January 12, 2020. Comparison right breast sonography February 11, 2020. The patient is status post needle biopsy with marker clip placement in the right breast. TECHNIQUE: Three Christa MRI imaging was performed with a dedicated breast coil. Axial, coronal, and sagittal T1 and T2-weighted scans were obtained with and without fat saturation in the usual fashion. The study includes dynamically acquired post gadolinium enhanced imaging subtraction imaging. Maximal intensity projection and multiplanar re-formation imaging is included as well. The study was interpreted with the aid of Unified Social[employer], an FDA approved computer-aided detection (CAD) software program, on a dedicated breast MRI work station. The gadolinium enhancement dose is 18 mL of intravenous ProHance. FINDINGS: There are moderate scattered fibroglandular elements. There is a minimal pattern of background parenchymal enhancement. Somewhat prominent vasculature is present bilaterally. No breast cystic change is seen. There is a metallic field susceptibility artifact adjacent to a small spiculated area of contrast enhancement in the upper outer quadrant of the right breast middle third measuring 7-8 mm in diameter. This felt to correspond to the recent biopsy site. It is considered suspicious. There are three tiny 4-5 mm perivascular lymph nodes adjacent to this lesion. These are not enlarged but are grouped near the suspicious lesion. In addition, more anteriorly and slightly inferiorly in the right breast, there is an irregular enhancing nodule 6.6 mm in diameter located approximately 4 cm anterior and inferior to the needle biopsy site. This displays heterogeneous enhancement and predominately washout kinetics and is also consider suspicious. There is no enlarged lymph node in either axilla. The left breast shows no suspicious area of enhancement and/or washout kinetics on dynamically acquired to study. No suspicious morphologic abnormality is seen in the left breast on pre or postcontrast images. IMPRESSION: BIRADS category 6 known right breast malignancy. No suspicious abnormality noted in the left breast. There is a second focus of enhancement and washout kinetics in a nodular lesion 4 cm anterior to the biopsy site in the right lateral breast. There is no evidence of axillary or internal mammary adenopathy on either side. The left breast is unremarkable. Electronically Signed by Joe Rutledge MD 02/15/2020 02:52 P
== END ==
LOC: M RAD 14:29
PROVIDERS: ATTEND Surgery
DX: C50.911 Malignant neoplasm of unspecified site of right female breast (principal)
CPT/HCPCS: A9576; C8908

== ENCOUNTER → 2020-03-01 | Outpatient (CLI) | payer MEDICARE ==
[~2020-03-01] MED LIST changes: +COQ-100C5 PO; +DIAZ5CON PO; +LIDOCAINE 1% MDV 20ML VIAL As Ordered ONE; -PROHANCE 279.3MG/ML 15ML VIAL As Ordered ONE; -PROHANCE 279.3MG/ML 5ML VIAL As Ordered ONE; +SODIUM BICARBONATE 8.4% INJ 50MEQ 50 ML VIAL As Ordered ONE; +VITA-158 PO
[2020-03-01 13:15] VITALS: BP 147/70
--- NOTE | 2020-03-01 14:31 | REP ---
FOCUSED RIGHT BREAST SONOGRAPHY: HISTORY: Malignant neoplasm of the right breast. Abnormal MRI study. Second look right breast sonography and anticipation of ultrasound-directed needle biopsy procedure. Also requested are needle biopsy of axillary lymph nodes with marker clip placement. Comparison is made with recent breast imaging including mammography and limited ultrasound images from an outside facility January 12, 2020 and bilateral breast MRI study from February 12, 2020. Sonography from February 11, 2020 done at this facility is also reviewed. The patient has undergone recent ultrasound-guided needle biopsy which I understand is positive for malignancy in [place]. Postbiopsy images document a ribbon-shaped marker clip at the site of architectural distortion seen mammographically after biopsy of a 2.9 mm hypoechoic nodule superficially located in the right breast. TODAY'S FINDINGS: Second look ultrasound is performed in my presence. The right breast parenchyma is quite heterogeneous with innumerable areas of acoustic shadowing and hypoechoic and heterogeneous texture. We were not able to identify either the recently placed marker clip or associated suspicious breast nodule. The secondary target seen on recent MRI study could not be identified with confidence. The axilla was scanned on the right and several axillary lymph nodes were observed. None of these show suspicious features. A lymph node with some measurable hypoechoic cortex was selected and targeted for anticipated ultrasound directed needle biopsy. IMPRESSION: Second look sonography of the right breast fails to identify either the recently biopsied target or the more anterior target seen on recent MRI scanning. The right breast demonstrates markedly heterogeneous fibroglandular background texture with innumerable foci of shadowing. No suspicious target could be identified. Normal-appearing axillary lymph nodes were identified and one of these was selected for ultrasound guided needle biopsy and marker clip placement. Electronically Signed by Joe Rutledge MD 03/01/2020 04:03 P
--- NOTE | 2020-03-01 16:14 | REP ---
Ultrasound-guided right axilla lymph node biopsy This procedure was performed by JOHN Salinas, under the direct supervision of Dr. Rutledge. The risks and the benefits of the procedure were explained to the patient and informed consent was obtained both verbally and written. Directly prior to the start of the procedure, a formal time out was completed in the procedure room. The right axilla lymph node was localized using ultrasound guidance. The skin was prepped and draped in a sterile fashion. 8 ml of buffered lidocaine was used as a local anesthetic. Using ultrasound guidance a 17/18 gauge coaxial needle biopsy system was inserted and advanced to the lymph node. 7 core biopsy samples were obtained and sent to the lab for further analysis. A hydro marked marker clip was placed in the biopsied lymph node under ultrasound guidance. The patient tolerated the procedure well and there were no immediate complications. After the appropriate amount of monitored convalescence the patient was discharged from the department. Reviewed by JOHN Salinas 03/01/2020 04:03 P Electronically Signed by Joe Rutledge MD 03/01/2020 04:04 P
== END ==
LOC: M IRPRO 11:38
PROVIDERS: ATTEND Surgery
DX: R59.0 Localized enlarged lymph nodes (principal); R92.8 Other abnormal and inconclusive findings on diagnostic imaging of breast; C50.911 Malignant neoplasm of unspecified site of right female breast; Z88.5 Allergy status to narcotic agent; Z88.7 Allergy status to serum and vaccine; Z91.018 Allergy to other foods

== ENCOUNTER → 2020-03-07 | Outpatient (CLI) | payer MEDICARE ==
[~2020-03-07] MED LIST changes: +CALC600T60 PO; +COLL1POW XX; +CREO24CA PO; +D31000TA2 PO; -LIDOCAINE 1% MDV 20ML VIAL As Ordered ONE; +MULT1TAB7 PO; +NOXI1TAB PO; +OMEP1CAP73 PO; +PRESCAP PO; +ROXI1TAB2 PO; -SODIUM BICARBONATE 8.4% INJ 50MEQ 50 ML VIAL As Ordered ONE; +TURM1CAP5 PO
--- NOTE | 2020-03-08 09:47 | REP ---
RIGHT BREAST ULTRASOUND: Real-time sonographic evaluation of the right breast performed at the site of a palpable area, right breast, in the region of prior biopsy and clip placement. In the right breast at 11-o'clock position approximately 7-8 cm from the nipple there is a tiny echogenic focus approximately 2 mm in length. This could represent a biopsy clip. No discrete cystic or solid mass is seen otherwise. IMPRESSION: BIRADS category 6, known right breast cancer. At the site of a palpable abnormality 11-o'clock position right breast, a 2 mm echogenic focus could represent a biopsy clip. Otherwise, no cystic or solid nodule is seen at that location.
== END ==
LOC: M WHC 16:02
PROVIDERS: ATTEND Surgery
DX: C50.911 Malignant neoplasm of unspecified site of right female breast (principal)

== ENCOUNTER → 2020-05-05 | Outpatient (CLI) | payer MEDICARE ==
[~2020-05-05] MED LIST changes: +LIDOCAINE 1% MDV 20ML VIAL As Ordered ONE; +PROHANCE 279.3MG/ML 15ML VIAL As Ordered ONE; +PROHANCE 279.3MG/ML 5ML VIAL As Ordered ONE; +SODIUM BICARBONATE 8.4% INJ 50MEQ 50 ML VIAL As Ordered ONE
[2020-05-05 11:55] VITALS: BP 130/74
--- NOTE | 2020-05-31 12:43 | REP ---
MRI-GUIDED BIOPSY RIGHT BREAST This procedure was performed by JOHN Gallardo under the direct supervision of Dr. Chadwick. The risks and benefits of the procedure were explained to the patient and informed consent was obtained. Directly prior to the start of the procedure, a time-out was done. DESCRIPTION OF PROCEDURE: The lateral aspect of the patients right breast skin was prepped with antiseptic. The patient was placed prone on the MRI imaging table in the breast imaging coil and the right breast was compressed mildly. 17 mL of intravenous gadolinium was administration. Fiducial marker localization, pre-, and two dynamic post T1-weighted fat saturated sequences of the right breast were acquired. The SHERPANDIPITY system was deployed. The lesion was targeted on initial images and the lateral aspect of the right breast was marked at the identified triangulated skin entry site. The lateral skin at the skin entry site was again prepped antiseptically. 10 mL of buffered Lidocaine was administered into the breast parenchyma and along the anticipated needle path. A skin sandie was performed. The 8 gauge Mammotome suction-assisted biopsy needle device was passed into the right breast tissue without significant difficulty. A series of six suction-assisted breast biopsy cores were retrieved between the 9 o'clock and 6 o'clock positions. These specimens were submitted in formalin for pathology. The marker clip was deployed. Post biopsy imaging showed good marker placement and targeting. The patient tolerated the procedure extremely well. After the monitored amount of convalescence, the patient was discharged from the department. [facility]ITALLuciana
== END ==
LOC: M IRPRO 08:40
PROVIDERS: ATTEND Surgery
DX: R92.0 Mammographic microcalcification found on diagnostic imaging of breast (principal)
CPT/HCPCS: 19085; 88305; A9576

== ENCOUNTER → 2020-05-05 | Outpatient (CLI) | payer MEDICARE ==
[~2020-05-05] MED LIST changes: -LIDOCAINE 1% MDV 20ML VIAL As Ordered ONE; -PROHANCE 279.3MG/ML 15ML VIAL As Ordered ONE; -PROHANCE 279.3MG/ML 5ML VIAL As Ordered ONE; -SODIUM BICARBONATE 8.4% INJ 50MEQ 50 ML VIAL As Ordered ONE
--- NOTE | 2020-05-31 12:44 | REP ---
POST BIOPSY MAMMOGRAM RIGHT BREAST TECHNIQUE: Following MRI-guided biopsy of a lesion in the right breast, mammographic images are obtained in the ML and CC projections. COMPARISON: Made with prior mammogram from [place], [place] 01/12/2020. FINDINGS: Previously noted biopsy clip is again noted in the upper outer quadrant of the right breast. The lesion biopsied today was only seen on the MRI of 02/12/2020, and is located approximately 4 cm anterior and inferior to the previous biopsy site. The biopsy clip that was deployed today is visualized anterior and inferior to the prior biopsy site in the upper outer quadrant of the right breast. MTDD
== END ==
LOC: M WHC 13:16
PROVIDERS: ATTEND Surgery
DX: R92.2 Inconclusive mammogram (principal); Z86.018 Personal history of other benign neoplasm; Z97.8 Presence of other specified devices

== ENCOUNTER → 2020-05-19 | Outpatient (CLI) | payer MEDICARE | LOC: M LABSMTC 10:24 | PROVIDERS: ATTEND Anesthesiology | DX: Z01.812 Encounter for preprocedural laboratory examination (principal); Z20.828 Contact with and (suspected) exposure to other viral communicable diseases | CPT/HCPCS: C9803; U0003 ==

== ENCOUNTER → 2020-05-19 | Outpatient (CLI) | payer MEDICARE ==
--- NOTE | 2020-06-02 13:21 | REPPI ---
CHEST X-RAY: 2-VIEWS HISTORY: Breast cancer. FINDINGS: The lungs are symmetrically aerated and clear. Pleural angles are sharp. Heart size is mildly prominent, cardiothoracic ratio is 53.3%. The aorta is slightly tortuous. Pulmonary vasculature is not increased. No infiltrate is seen. There are moderate degenerative disc changes in the thoracic spine. Clips are noted in the right upper quadrant consistent with previous cholecystectomy. IMPRESSION: Mild cardiomegaly. Otherwise, no acute disease. MTDD
== END ==
LOC: M PLAIMG 09:08
PROVIDERS: ATTEND Surgery
DX: C50.919 Malignant neoplasm of unspecified site of unspecified female breast (principal); I51.7 Cardiomegaly

== ENCOUNTER 2020-05-24 06:28 | Day surgery (SDC) | payer MEDICARE ==
[~2020-05-24] VITALS: Ht 160 cm; Wt 85.0 kg
[~2020-05-24 06:28] MED LIST changes: -COLL1POW XX; +LIDOCAINE 1% MDV 20ML VIAL SQ PRN; -MULT1TAB7 PO; -NOXI1TAB PO; -PRESCAP PO; -ROXI1TAB2 PO; -TURM1CAP5 PO
[2020-05-24] MEDS ORDERED: ceFAZolin 2 GM/D5W 50 ML IV BAG (J0690 PER 500MG) As Ordered ONE ×2 (06:51→13:28)
[2020-05-24] MEDS ORDERED: HEPARIN SOD (PORCINE) 5000UNITS/ML 1ML VIAL/SYRINGE As Ordered ONE (06:51)
[2020-05-24] MEDS ORDERED: LR 1,000 ML IV ONE (07:00)
[2020-05-24] MEDS ORDERED: ceFAZolin SOD 2 GM in IV 1 EA IV ONE (07:00)
[2020-05-24] MEDS ORDERED: HEPARIN SOD (PORCINE) 5000UNITS/ML 1ML VIAL/SYRINGE SQ ONE (07:00)
[2020-05-24] MEDS ORDERED: SCOPOLAMINE 1MG TRANSDERMAL PATCH As Ordered ONE (07:52)
[2020-05-24] MEDS ORDERED: LIDOCAINE 1% SDV 30ML VIAL As Ordered ONE (07:55)
[2020-05-24] MEDS ORDERED: BUPIVACAINE HCL 0.25% 30ML VIAL As Ordered ONE (07:55)
[2020-05-24] MEDS ORDERED: SCOPOLAMINE 1MG TRANSDERMAL PATCH TOP ONE (08:15)
[2020-05-24] MEDS ORDERED: LIDOCAINE 2% 100MG/5ML SDV (FOR ANES.) As Ordered ONE (09:27)
[2020-05-24] MEDS ORDERED: propofoL 200 MG/20 ML VIAL As Ordered ONE (09:27)
[2020-05-24] MEDS ORDERED: METOCLOPRAMIDE INJ 10MG/2ML VIAL (J2765 PER 1) As Ordered ONE (09:28)
[2020-05-24] MEDS ORDERED: KETOROLAC 60MG 2ML VIAL As Ordered ONE (09:28)
[2020-05-24] MEDS ORDERED: fentaNYL 100 MCG/2 ML INJECTION (J3010) As Ordered ONE ×3 (09:28→14:32)
[2020-05-24] MEDS ORDERED: MIDAZOLAM INJ 2MG/2ML VIAL (J2250 PER 1MG) As Ordered ONE (09:28)
[2020-05-24] MEDS ORDERED: ONDANSETRON 4MG/2ML VIAL As Ordered ONE ×2 (09:28→14:32)
[2020-05-24] MEDS ORDERED: dexameTHASONE 4 MG/ML 1ML VIAL (J1100 PER 1MG) As Ordered ONE (09:28)
[2020-05-24] MEDS ORDERED: ePHEDrine SULFATE 25 MG/5 ML(5MG/ML) SYRINGE As Ordered ONE (12:05)
[2020-05-24] MEDS ORDERED: ROXI1TAB2 PO (14:29)
[2020-05-24] MEDS ORDERED: oxyCODONE 5MG TAB As Ordered ONE (14:52)
[2020-05-24] MEDS ORDERED: METOCLOPRAMIDE INJ 10MG/2ML VIAL (J2765 PER 1) IV PRN (15:15)
[2020-05-24] MEDS ORDERED: LR 1,000 ML IV SCH (15:15)
[2020-05-24] MEDS ORDERED: HYDROMORPHONE HCL 0.5 MG/ 0.5 ML SYRINGE (J1170 PER 1) IV PRN (15:15)
[2020-05-24] MEDS ORDERED: oxyCODONE 5MG TAB PO PRN (15:15)
[2020-05-24] MEDS ORDERED: fentaNYL 100 MCG/2 ML INJECTION (J3010) IV PRN (15:15)
[2020-05-24] MEDS ORDERED: ONDANSETRON 4MG/2ML VIAL IV PRN (15:15)
[2020-05-24 17:10] VITALS: BP 119/57
--- NOTE | 2020-05-25 11:27 | ROOPDOC ---
[facility] Report Of Operation Report of Operation DATE OF PROCEDURE: 05/24/20 PREPROCEDURE DIAGNOSES: Right breast cancer POSTPROCEDURE DIAGNOSES: Right breast cancer PROCEDURE: Right breast lumpectomy with intraop wire placement, Right sentinel lymph node biopsy, right axillary intraop wire placement and unsuccessful attempt to retrieve previously biopsied benign lymph node. SURGEON: Nicholas Castañeda ANESTHESIA: general ESTIMATED BLOOD LOSS: Approximately 200 mL. COMPLICATIONS: none REMARKS: unable to indetify right axillary previously biopsed and benign LN, successful identification of right SLN, lumpectomy specimen contains ribbon clip, wire and numerous calcifications. DESCRIPTION OF PROCEDURE: INDICATIONS: Ms. Dooley is a 65-year-old woman who was found to have a suspicious architectural distortion on screening right breast mammogram. This was evaluated with stereotactic biopsy and nonhydromark clip (but visualized on US) was placed in [place]. Pathology came back as IDC, hormone positive, HER2 negative. MRI was done and second focus of suspicious lesion was found. Second look US did not show sonographic target hence MRI guided bx was done. The biopsy results were negative for malignancy. I discussed results with Dr Chadwick from radiology who performed MRI biopsy. Dr Chadwick stated that biopsy results are concordant and no e xcision of the MRI biopsied area is needed. Patient also had suspicious axillary findings identified. Biopsy was also done with clip placement and pathology came back as benign lymphatic tissue. Patient opted for breast conservative surgery with sentinel lymph node biopsy on the right. An attempt was planned to excise previously biopsied lymph node after wire localization as well. Patient was medically cleared for surgery by her primary care doctor. Risks and possible complications of surgical procedure including bleeding, infection and injury to surrounding structures were explained to the patient and she wished to proceed. Consent was signed. My initials were placed on the operative site. Subcutaneous injection of 5000 units of heparin was done in Preop. The injection of radioactive tracer was done in radiology department preoperatively. Lymphoscintigraphy imaging was reviewed in preop. DETAILS: Patient was taken to the operating room and placed on the operating room table. A sign in was called stating patients name, date of and the procedure to be done. Preoperative antibiotics were infused. Smooth induction of general anesthesia was done. Patients hands were extended on arm rests. Care was taken not to over extend the arms. Pillow was placed under the knees and a foam was placed under the heels. Sequential compression devices were placed and assured to function correctly. Procedure was started with right breast intraop wire localization. Appropriate time out was done and patients name, date of , and the procedure to be done were confirmed. Right breast was cleaned by me. Intraoperative ultrasound was used to confirm location of the nonHydromark clip. Location of the clip was marked on the skin as well. 21 G Kopans Breast Lesion Localization Needle was used to place 25 cm wire next to visualized clip. There was no sono target of the cancer lesion. The end of the wire was passed a centimeter deep. The images were captured confirming adequate placement of the localizing wire. Order Make Up Clerk assisted with the wire placement. After breast localization was completer, our attention was moved toward the axilla. Previously placed Hydromark clip was visualized and the 21 G Kopans Breast Lesion Localization Needle was used to place 25 cm wire next to visualized clip. This was very difficult as the clip was right to moderate size vessel. Decision was made to place the wire superficial to clip and not try to push it through the clip. No suspicious lymph node was identified in the area of the clip on my exam. The images were captured confirming adequate placement of the localizing wire. Order Make Up Clerk assisted with the wire placement. Next, patients right breast and axilla were prepped and draped in the usual fashion. Care was taken not to displace the wires. Appropriate time out was done again prior second part of the procedure. Patients name, date of , and the procedure to be done were confirmed. Procedure was started with the lymph node biopsy. Neoprobe was used to locate area of maximum intensity of the signal. Local anesthetic using 1% lidocaine and 0.25 % Marcaine 50/50 mix was injected. An incision was made with scalpel number 15 at the inferior aspect of axillary hair line in the right axilla where the maximum signal was identified. The sharp and blunt dissection was continued through the subcutaneous adipose tissue. Clavipectoral fascia was opened. Intraoperative US was used to identify the axillary Hydromark. Dissection was carried along the previously placed wire. After the end of the wire was reached no clip was identified in the surrounding tissues. Extensive search for the clip was done however it was difficult to identify the clip due to a lot of interference of air in dissected tissue. Clip was not identified. Axillary wire was removed and discarded. Next, Neoprobe was used to guide the additional dissection in search of sentinel lymph node. A sentinel lymph node with high signal was identified and excised. The ex-vivo 10 second count was 8270. The specimens were labeled with patients name and sent to pathology. No additional lymph nodes with high radioactive signal were identified. There were no palpable lymph nodes either. The 10 second count of the background was 36. Adequate hemostasis was assured. Additional local anesthetic was injected into surrounding tissues. Wound was irrigated. Clavipectoral fascia was closed with 3-0 Vicryl interrupted suture. Dermal layer was closed at the end of the case with 3-0 Monocryl and skin was closed with 4-0 Monocryl. Surgical glue was applied to the incision at the end of the procedure. Next, my attention was turned toward the right breast. Local anesthetic using 1% lidocaine and 0.25 % Marcaine 50/50 mix was injected at the site of planned periareolar incision. The incision was made with the scalpel. Subcutaneous skin flaps were raised and the guide wire was carefully pulled into the wound. Dissection was carries along the wire until the previously marked on the skin area of target lesion location was encountered. At this point, wider excision of the tissue surrounding the wire was done. The nonhydromak clip was identified in the tissue with intraoperative hockey stick ultrasound probe although this was difficult due to air interference in dissection area. There was aberrant moderate size blood vessel which was noted to bleed during the dissection. This vessel was double clipped. The end of the guide wire was identified with palpation. The lumpectomy specimen was carefully removed from the breast keeping its proper orientation and moved to the back table where margins were marked with the surgical inking kit following the standard colors recommendations. Specimen was then placed on the grid and placed in [facility] Specimen Imaging System. The image revealed the wire and the ribbon nonhydromark clip and numerous calcifications in the specimen. The specimen was labeled with patients name and right lumpectomy and sent to pathology. Next, additional margins were taken: inferior, superior, medial, lateral and deep. Anterior margin was not taken as it was under the skin. All new margins, defined as margin farthest away from lumpectomy cavity, were marked with black ink. Each margin was sent as a separate specimen with appropriate labeling. Wound was thoroughly irrigated. Adequate hemostasis was assured. Additional local anesthetic was injected into surrounding tissues. Clips were placed to michelle the cavity. Lumpectomy cavity defect was partially approximated with 2-0 Vicryl. Surrounding tissues had to be mobilized laterally and superiorly to allow partial defect closure. During dissection a gel from hyrdomark clip from previous benign biopsy was visualized and partially removed. Excess lateral skin was trimmed and approximated to the areola. The dermis was closed with 3-0 Monocryl and skin was closed with 4-0 Monocryl. Surgical glue was placed over the incision. Patient emerged from the anesthesia without any problems. Fluffs were placed over the operative site and patients chest was wrapped snuggly in the GAYLE wrap. Sponge and instrument counts were done and were correct. Patient tolerated procedure well and was taken to recovery unit in stable condition. NICHOLAS CASTAÑEDA DO May 25, 2020 11:27
--- NOTE | 2020-06-02 13:25 | REP ---
RIGHT BREAST LYMPHOSCINTIGRAPHY This procedure was performed by Tracy Izaguirre [facility], under the direct supervision of Dr. Chadwick. Images were reviewed with Dr. Chadwick prior to dictation. The risks and benefits of the procedure were explained to the patient, and an informed consent was obtained both verbally and written. Directly prior to the start of the procedure, a formal time out was done in the procedure room. Using topical anesthetic and sterile technique, 1.007 millicuries of technetium 99m filtered sulfur colloid was injected subdermally in eight fractionated periareolar injections. Images obtained one hour after injection show a dominant right axillary focus. IMPRESSION: Dominant right axillary focus visualized. MTDD
--- NOTE | 2020-06-08 13:49 | REP ---
SPECIMEN RADIOGRAPHY RIGHT BREAST HISTORY: [place] node biopsy. NOTE: Images are acquired on 05/24/2020 and presented to me for dictation on 05/31/2020. COMPARISON MAMMOGRAPHY: 05/25/2020. FINDINGS: A specimen radiograph demonstrates a Kopans needle localization wire in the specimen. There are microcalcifications adjacent to the wire along with a needle biopsy marker clip. MTDD
[2020-07-05] MEDS ORDERED: PRESCAP PO (10:11)
[2020-07-05] MEDS ORDERED: TURM1CAP5 PO (10:11)
[2020-07-13] MEDS ORDERED: NOXI1TAB PO (09:58)
[2020-07-13] MEDS ORDERED: MULT1TAB7 PO (09:58)
[2020-07-13] MEDS ORDERED: CREO24CA PO (09:58)
[2020-07-13] MEDS ORDERED: COLL1POW XX (09:58)
== END 2020-05-24 17:10 | disposition home or self-care (01) ==
LOC: M SDC 06:28
PROVIDERS: ATTEND Surgery
DX: C50.911 Malignant neoplasm of unspecified site of right female breast (principal); J30.2 Other seasonal allergic rhinitis; K21.9 Gastro-esophageal reflux disease without esophagitis; M12.9 Arthropathy, unspecified; M54.9 Dorsalgia, unspecified; Z78.0 Asymptomatic menopausal state; Z79.899 Other long term (current) drug therapy; Z88.5 Allergy status to narcotic agent; Z88.6 Allergy status to analgesic agent; Z86.718 Personal history of other venous thrombosis and embolism; Z90.710 Acquired absence of both cervix and uterus; Z91.018 Allergy to other foods; Z98.51 Tubal ligation status; Z98.84 Bariatric surgery status
CPT/HCPCS: 19125; 36415; 38525; 76942; 78195; 86850; 86900; 86901; 88305; 88307; A9541; J0690; J1100; J1644; J1885; J2250; J2405; J2765; J3010

== ENCOUNTER → 2020-07-05 | Outpatient (CLI) | payer MEDICARE ==
[~2020-07-05] MED LIST changes: -LIDOCAINE 1% MDV 20ML VIAL SQ PRN; +PRESCAP PO; +ROXI1TAB2 PO; +TURM1CAP5 PO
--- NOTE | 2020-07-05 12:11 | RADONC.CN ---
Radiation Oncology Hx/Consult Radiation Oncology Consult Date of Service: Jul 05, 2020 Pt Identifier Marguerite Dooley is a 65 year old female with screening mammogram detected pT1bN0(sn)M0 ER/ND+ HER2- Grade 1 IDC of the lower outer right breast. She underwent lumpectomy with SLNB on 05/24/[address] Samaniego and is seen for consideration of adjuvant RT. Diagnosis/Treatment History Oncologic History Spring 2019 screening mammogram with right breast abnormality 05/05/20 MRI guided biopsy right breast 05/24/20 Lumpectomy and SLNB showing [id number] ER/ND+ HER2- grade 1 margins negative Breast history: OCP 2 years @ 18 Menses @ 12 Post menopausal @51 Interval History Feels well. Main complaint is left knee arthritis. Has a pending left knee replacement. No post-op complaints. No pain in the right breast. Some tenderness right axilla. No RUE swelling or impaired ROM. Past Medical History: Arthitis Blood clots Uterine cancer Depression Bladder prolapse Past Surgical History: Appendectomy Back surgery Cholecystectomy Gastric bypass Hysterectomy Right knee replacement Family History: Sister breast cancer Social History: Never smoker 1 drink per week Allergies / Meds Allergies: Coded Allergies: FRUIT (Verified Allergy, Severe, ITCHING, THROAT SWELLING, DIFFICULTY BREATHING, 05/20/20) fresh fruits and vegetables tree nut (Verified Allergy, Severe, itching throat swells breathing, 05/20/20) morphine (Verified Allergy, Mild, ITCHING NAUSEA, 05/20/20) tetanus toxoid, adsorbed (Verified Adverse Reaction, Intermediate, swelling reddness arm, 05/20/20) tramadol (Verified Adverse Reaction, Intermediate, FELT LIKE HEART ATTACK heaviness in chest, 05/20/20) Home Meds Active Scripts Oxycodone HCl (Roxicodone) 5 Mg Tablet, 5 MG PO q6 hours as needed PRN for pain MDD 12 Tablet(s) for 5 Days, #10 TAB Prov:NICHOLAS SAMANIEGO DO 05/24/20 Reported Medications Vit A/Vit C/Vit E/Zinc/Copper (Preservision Areds Softgel) 1 Each Capsule, 1 CAP PO BID, CAP 07/05/20 Turmeric/Turmeric Ext/Pepr Ext (Turmeric Complex 500 mg Cap) 1 Each Capsule, 1 CAP PO DAILY, CAP 07/05/20 Calcium Carbonate (Calcium) 600 Mg Tablet, 600 MG PO DAILY, TAB 05/20/20 Omeprazole (Omeprazole) 20 Mg Capsule.dr, 20 MG PO DAILY, CAP 05/20/20 Pancreatic Enzymes (Creon Dr 24,000 Units Capsule) 1 Each Capsule.dr, 1 EA PO TID, CAPCR 05/20/20 Cholecalciferol (Vitamin D3) (Vitamin D3) 1,000 Unit Tablet, 2000 UNITS PO BID, TAB 05/20/20 Ascorbic Acid (Vitamin C) 500 Mg Tablet, 500 MG PO DAILY for 30 Days, #60 TAB 03/01/20 Ubidecarenone (Coq-10) 100 Mg Capsule, 100 MG PO DAILY, CAP 03/01/20 Cyanocobalamin (Vitamin B-12) (Vitamin B-12) 500 Mcg Tablet, 1000 MCG PO BID, TAB 12/19/18 Biotin (Biotin) 10 Mg Tablet, 10 MG PO BID, TAB 12/19/18 Multivitamin (Multivitamins) 1 Each Capsule, 1 CAP PO DAILY, CAP 12/19/18 Review of Systems Constitutional: Denies: Chills, Fever, Night Sweats Eyes: Denies: Pain, Vision change HEENT: Denies: Head Aches, Dysphagia, Sore Throat Skin: Denies: Rash, Lesions, Bruising Pulmonary: Denies: Dyspnea, Cough Cardiovascular: Denies: Chest Pain, Palpitations, Edema Breast: Denies: New Breast Lumps / Masses, Nipple Retraction, Nipple Discharge, Breast Skin Changes, Breast Pain or Tenderness Gastrointestinal: Denies: Nausea, Vomiting, Abdominal Pain, Diarrhea Genitourinary: Denies: Dysuria, Frequency, Incontinence Hematologic: Denies: Bruising, Petecchia, Enlarged Lymph Nodes Musculoskeletal: Denies: Neck pain, Shoulder pain, Arm pain, Back pain, Hand pain, Leg pain, Foot pain, Joint pain, Muscle pain, Spasms, Gout, Joint sweling, Muscle stiffness, Midthoracic pain, Other Neurological: Denies: Weakness, Numbness, Incoordination Psych: Reports: Mood Normal; Denies: Memory Issues, Thoughts of Self Harm Vital Signs Ht 63" Wt 193 lb BMI 34 T 98.7 P 68 RR 18 BP 137/80 O2 98% Pain 0 Fatigue 0 General Exam: Positive: Alert, Cooperative, No Acute Distress Eye Exam: Positive: PERRLA, EOMI ENT EXAM: Positive: Mucous membr. moist/pink, Pharynx Normal Neck Exam: Negative: Thyromegaly, Lymphadenopathy Chest Exam: Positive: Normal air movement; Negative: Rales, Rhonchi, Wheezing Heart Exam: Positive: Rate Normal, Regular Rhythm Breast Exam: Positive: Symmetric Bilaterally, Other Breast Findings (Palpable right lower outer seroma); Negative: Lumps or Masses, Nipple Retraction, Nipple Discharge, Skin Changes Abdomen Exam: Positive: Soft; Negative: Tenderness, Mass Extremity Exam: Negative: Edema, Tenderness Skin Exam: Positive: Nl turgor and temperature; Negative: Rash Neuro Exam: Positive: Normal Gait, Normal Speech, Cranial Nerves 3-12 NL Psych Exam: Positive: Mental status NL, Mood NL, Memory Intact Diagnostic and Laboratory Diagnostic Review Radiologic images, relevant labs and pathology reports were personally reviewed and discussed with Ms. Dooley. Assessment and Plan Impression Ms. Dooley is a 65 year old female with a history of screening mammogram detected pT1bN0(sn)M0 ER/ND+ HER2- Grade 1 IDC of the lower outer right breast. She underwent lumpectomy with SLNB on 05/24/[address] Samaniego and is seen for consideration of adjuvant RT. Stage Stage IA right breast cancer pT1bN0(sn)M0 ER/ND+ HER2- Grade 1 Performance Status ECOG 0 Plan We had an extensive discussion with Ms. Dooley regarding the diagnosis at hand and available therapeutic options. She has a small early stage breast cancer resected with adequate margins. She would be appropriate for partial breast RT. I offered her 40 Gy in 15 fractions per IMPORT LOW versus 26 Gy in 5 fractions per FAST FORWARD. She opted for the former based on the longer follow up. I think this is a good choice. She intends to take an AI after completing RT. Seeing Dr. Ruffin about this in the coming weeks. We discussed the logistics of receiving radiation therapy in detail including the need for a 1-time planning session. We reviewed the side effects of treatment including fatigue, skin reaction, and late fibrosis. After discussing the risks, benefits and alternatives to radiation therapy, Ms. Dooley was amenable to pursuing radiotherapy. All questions were answered to the patient's satisfaction. We instructed the patient that if there were any questions,concerns or changes in clinical status in the interim to contact us. Recommendations Partial breast RT 40 Gy in 15 fractions to the right breast tumor bed Simulation in the next week SEAN FROST MD Jul 05, 2020 12:03
== END ==
LOC: M ONCR 09:03
PROVIDERS: ATTEND General Practice
DX: C50.511 Malignant neoplasm of lower-outer quadrant of right female breast (principal)

== ENCOUNTER → 2020-07-15 | Outpatient (REF) | payer MEDICARE ==
[~2020-07-15] MED LIST changes: +COLL1POW XX; +MULT1TAB7 PO; +NOXI1TAB PO
[2020-07-15 14:29] LABS: APPEARANCE, URINE CLEAR (CLEAR); BACTERIA, URINE AUTO NEGATIVE (NEGATIVE); BILIRUBIN, URINE AUTO NEGATIVE (NEGATIVE); BLOOD, URINE BLOOD NEGATIVE (NEGATIVE); COLOR, URINE STRAW (YELLOW); GLUCOSE, URINE (UA) AUTO NEGATIVE (NEGATIVE); KETONE, URINE AUTO NEGATIVE (NEGATIVE); LEUKOCYTE ESTERASE, URINE AUTO NEGATIVE (NEGATIVE); NITRITE, URINE AUTO NEGATIVE (NEGATIVE); PROTEIN, URINE AUTO NEGATIVE (NEGATIVE); RBC, URINE AUTO 0 /HPF (0-3); SPECIFIC GRAVITY URINE AUTO 1.003 (1.002-1.035); SQUAMOUS EPITHELIAL CELL UR AU 0 /HPF (0-6); UROBILINOGEN, URINE AUTO 0.2 mg/dL (0.0-2.0); WBC, URINE AUTO 0 /HPF (0-3)
== END ==
LOC: M SFHCWAGY 13:10
PROVIDERS: ATTEND Specialist
DX: N39.3 Stress incontinence (female) (male) (principal)

== ENCOUNTER → 2020-08-01 | Outpatient (RCR) | payer MEDICARE ==
[~2020-08-01] MED LIST changes: +LIDO5CRE6 TOP
== END ==
LOC: M ONCR 07-12 13:45
PROVIDERS: ATTEND General Practice
DX: C50.511 Malignant neoplasm of lower-outer quadrant of right female breast (principal)

== ENCOUNTER → 2020-08-07 | Outpatient (CLI) | payer MEDICARE, BC ==
[~2020-08-07] MED LIST changes: +ANAS1TAB2 PO; +CYAN500T14 PO; -CYAN500T8 PO
== END ==
LOC: M LABSMTC 08:33
PROVIDERS: ATTEND Anesthesiology
DX: Z11.59 Encounter for screening for other viral diseases (principal)

== ENCOUNTER 2020-08-11 08:52 | Outpatient (RCR) | payer MEDICARE ==
[~2020-08-11 08:52] MED LIST changes: -ANAS1TAB2 PO
[2020-08-11] MEDS ORDERED: ANAS1TAB2 PO (10:34)
[2020-08-12] MEDS ORDERED: OXYC1TAB23 PO (12:48)
[2020-08-12] MEDS ORDERED: IBUP-1022 PO (12:50)
== END 2020-09-01 ==
LOC: M ONCR 08:52
PROVIDERS: ATTEND General Practice
DX: C50.511 Malignant neoplasm of lower-outer quadrant of right female breast (principal)

== ENCOUNTER 2020-08-12 07:05 | Day surgery (SDC) | payer MEDICARE ==
[~2020-08-12] VITALS: Ht 157.5 cm; Wt 86.4 kg
[~2020-08-12 07:05] MED LIST changes: +ANAS1TAB2 PO; +LIDOCAINE 1% MDV 20ML VIAL SQ PRN; +LR 1,000 ML IV ONE
[2020-08-12 08:07] LABS: HEMATOCRIT 41.7 % (36.0-47.0); HEMOGLOBIN 13.4 g/dl (12.0-15.5); MEAN CORPUSCULAR HEMOGLOBIN 31.5 pg (27.0-33.0); MEAN CORPUSCULAR HGB CONC 32.1 g/dl (32.0-36.5); MEAN CORPUSCULAR VOLUME 97.9 fl (80.0-96.0); PLATELET COUNT, AUTOMATED 247 10^3/uL (150-450); RED BLOOD COUNT 4.26 10^6/uL (4.00-5.40); WHITE BLOOD COUNT 3.7 10^3/uL (4.0-10.0)
[2020-08-12] MEDS ORDERED: ROCURONIUM BROMIDE 50 MG/5 ML VIAL As Ordered ONE (08:21)
[2020-08-12] MEDS ORDERED: ACETAMINOPHEN 1000MG 100ML IV BTL (OFIRMEV) (J0131 PER 10MG) As Ordered ONE (08:21)
[2020-08-12] MEDS ORDERED: dexameTHASONE 4 MG/ML 1ML VIAL (J1100 PER 1MG) As Ordered ONE (08:21)
[2020-08-12] MEDS ORDERED: fentaNYL 100 MCG/2 ML INJECTION (J3010) As Ordered ONE ×2 (08:21→10:52)
[2020-08-12] MEDS ORDERED: MIDAZOLAM INJ 2MG/2ML VIAL (J2250 PER 1MG) As Ordered ONE (08:21)
[2020-08-12] MEDS ORDERED: KETOROLAC 60MG 2ML VIAL As Ordered ONE (08:21)
[2020-08-12] MEDS ORDERED: SUGAMMADEX SODIUM 500 MG/5 ML VIAL (BRIDION) As Ordered ONE (08:21)
[2020-08-12] MEDS ORDERED: propofoL 200 MG/20 ML VIAL As Ordered ONE (08:21)
[2020-08-12] MEDS ORDERED: LIDOCAINE 2% 100MG/5ML SDV (FOR ANES.) As Ordered ONE (08:21)
[2020-08-12] MEDS ORDERED: ONDANSETRON 4MG/2ML VIAL As Ordered ONE (08:21)
[2020-08-12] MEDS ORDERED: ceFAZolin 2 GM/D5W 50 ML IV BAG (J0690 PER 500MG) As Ordered ONE (09:36)
[2020-08-12] MEDS ORDERED: VASOPRESSIN INJ 20 UNITS/ML VIAL As Ordered ONE (09:41)
[2020-08-12] MEDS ORDERED: FUROSEMIDE 100MG/10ML VIAL (J1940) As Ordered ONE (10:27)
[2020-08-12] MEDS ORDERED: oxyCODONE 5MG TAB As Ordered ONE (10:52)
--- NOTE | 2020-08-12 10:53 | ROOPDOC ---
[facility] Report Of Operation Report of Operation DATE OF PROCEDURE: 08/12/20 PREPROCEDURE DIAGNOSES: Large cystocele. POSTPROCEDURE DIAGNOSES: same. PROCEDURE: Anterior vaginal repair, cystoscopy. SURGEON: Forrest Poole MD, MD ANESTHESIA: General. ESTIMATED BLOOD LOSS: Approximately 100 mL. Urine output: 50 cc COMPLICATIONS: none. PROCEDURE NOTE: The patient was taken to the operating room where general endotracheal anesthesia was induced. She was prepped and draped in a sterile fashion in the dorsal lithotomy position. The posterior margins of the cystocele were grasped with Liz clamps. A marking pen was used to michelle the midline. The vaginal mucosa over the midline was injected with a dilute Vasopressin solution, total of 6 cc. Metzenbaum scissors were used to incise the vaginal mucosa. The vaginal mucosa was dissected off the bladder with a combination of blunt and sharp dissection. Three plicating sutures of O-Vicryl were placed to elevate the bladder. Excess vaginal mucosa was excised. The vagina was reapproximated with 2-O Vicryl l in a running fashion. Cystoscopy was performed using a 70 degree cystoscope. Bilateral ureteral jets were identified. There was no evidence of injury to the bladder. All instruments were removed. Sponge, instrument, needle counts were correct. FORREST POOLE MD Aug 12, 2020 10:53
[2020-08-12] MEDS ORDERED: LIDOCAINE 1% SDV 30ML VIAL As Ordered ONE (10:57)
[2020-08-12] MEDS ORDERED: miSOPROStol 200 MCG TAB (S0191) As Ordered ONE (10:57)
[2020-08-12] MEDS ORDERED: METHYLERGONOVINE MALEATE 0.2 MG/ML VIAL (J2210) As Ordered ONE (10:57)
[2020-08-12] MEDS: HYDROMORPHONE HCL 0.5 MG/ 0.5 ML SYRINGE (J1170 PER 1) IV PRN ×2 (11:10→11:20)
[2020-08-12] MEDS ORDERED: LR 1,000 ML IV SCH ×2 (11:15)
[2020-08-12] MEDS ORDERED: ONDANSETRON 4MG/2ML VIAL IV PRN (11:15)
[2020-08-12] MEDS ORDERED: fentaNYL 100 MCG/2 ML INJECTION (J3010) IV PRN (11:15)
[2020-08-12] MEDS ORDERED: PERCOCET 5MG/325MG TAB PO PRN (11:15)
[2020-08-12] MEDS ORDERED: oxyCODONE 5MG TAB PO PRN (11:15)
[2020-08-12] MEDS ORDERED: OXYC1TAB23 PO (12:48)
[2020-08-12] MEDS ORDERED: IBUP-1022 PO (12:50)
[2020-08-12] MEDS ORDERED: METOCLOPRAMIDE INJ 10MG/2ML VIAL (J2765 PER 1) IV PRN (14:00)
[2020-08-12 15:10] VITALS: BP 124/67
== END 2020-08-12 15:35 | disposition home or self-care (01) ==
LOC: M SDC 07:05
PROVIDERS: ATTEND Specialist
DX: N81.11 Cystocele, midline (principal); K21.9 Gastro-esophageal reflux disease without esophagitis; Z86.718 Personal history of other venous thrombosis and embolism; Z98.84 Bariatric surgery status; Z88.5 Allergy status to narcotic agent; Z88.7 Allergy status to serum and vaccine; Z88.8 Allergy status to other drugs, medicaments and biological substances; Z91.010 Allergy to peanuts; Z91.018 Allergy to other foods; Z79.899 Other long term (current) drug therapy; Z85.3 Personal history of malignant neoplasm of breast; Z92.3 Personal history of irradiation
CPT/HCPCS: 36415; 57240; 85027; 88302; J0131; J0690; J1100; J1170; J1885; J1940; J2250; J2405; J2765; J3010

== ENCOUNTER → 2020-10-03 | Outpatient (CLI) | payer OTHER, MEDICARE ==
[~2020-10-03] MED LIST changes: +B-12100010 PO; +CYAN100049 PO; +IBUP-1022 PO; -LIDOCAINE 1% MDV 20ML VIAL SQ PRN; -LR 1,000 ML IV ONE; +OXYB-54 PO; +OXYC1TAB23 PO; +VITA200020 PO
[2020-10-03 12:37] LABS: BASO % 0.7 % (0.0-1.0); EOS # 0.1 10^3/uL (0.0-0.5); EOS % 2.2 % (0.0-3.0); HEMATOCRIT 42.8 % (36.0-47.0); HEMOGLOBIN 13.9 g/dl (12.0-15.5); LYMPH # 1.2 10^3/uL (1.5-5.0); LYMPH % 24.9 % (24.0-44.0); MEAN CORPUSCULAR HEMOGLOBIN 31.1 pg (27.0-33.0); MEAN CORPUSCULAR HGB CONC 32.5 g/dl (32.0-36.5); MEAN CORPUSCULAR VOLUME 95.7 fl (80.0-96.0); MONO # 0.3 10^3/uL (0.0-0.8); MONO % 7.4 % (0.0-5.0); NEUTROPHILS % 64.8 % (36.0-66.0); PLATELET COUNT, AUTOMATED 240 10^3/uL (150-450); RED BLOOD COUNT 4.47 10^6/uL (4.00-5.40); WHITE BLOOD COUNT 4.6 10^3/uL (4.0-10.0)
[2020-10-03 12:49] LABS: INR 0.95; PROTHROMBIN TIME 12.9 SECONDS (12.5-14.3)
--- NOTE | 2020-10-03 12:54 | REP ---
INDICATION: UNILATERAL PRIMARY OSTEOARTHRITIS, LEFT KNEE/LABS 1ST COMPARISON: 05/19/2020. TECHNIQUE: PA/Lateral FINDINGS: Lungs: Clear, no infiltrate. Heart: Normal in size. Mediastinum: Mediastinal silhouette unremarkable. Pleural angles: Unremarkable.. Bones and soft tissues: There are degenerative changes of the spine without compression deformity. IMPRESSION: No acute pulmonary disease. <Electronically signed by Jim Chadwick > 10/03/20 [id number]
[2020-10-03 13:12] LABS: ALBUMIN 3.6 GM/DL (3.2-5.2); ALT/SGPT 24 U/L (12-78); BILIRUBIN,TOTAL 0.6 MG/DL (0.2-1.0); BLOOD UREA NITROGEN 14 MG/DL (7-18); CALCIUM LEVEL 9.9 MG/DL (8.8-10.2); CARBON DIOXIDE LEVEL 32 MEQ/L (21-32); CHLORIDE LEVEL 105 MEQ/L (98-107); CREATININE FOR GFR 0.64 MG/DL (0.55-1.30); GLOMERULAR FILTRATION RATE > 60.0 (>45); GLUCOSE, FASTING 107 MG/DL (70-100); POTASSIUM SERUM 4.8 MEQ/L (3.5-5.1); SODIUM LEVEL 142 MEQ/L (136-145); TOTAL PROTEIN 6.9 GM/DL (6.4-8.2)
[2020-10-03 13:18] LABS: ERYTHROCYTE SEDIMENTATION RATE 16 mm/hr (0-30)
== END ==
LOC: M LAB 11:51
PROVIDERS: ATTEND Orthopaedic Surgery
DX: M17.12 Unilateral primary osteoarthritis, left knee (principal); Z79.899 Other long term (current) drug therapy

== ENCOUNTER → 2020-10-03 | Outpatient (CLI) | payer MEDICARE ==
--- NOTE | 2020-10-03 12:03 | DEXAMM ---
INDICATION: BREAST CA,STARTING AI. COMPARISON: None. TECHNIQUE: Bone density was measured using dual-energy x-ray absorptiometry (DEXA). FINDINGS: AP SPINE L1-L4 BMD 1.030 g/cm2 Young Adult T-Score -1.3 Age Matched Z-Score 0.3. LT FEMUR, TOTAL BMD 0.896 g/cm2 Young Adult T-Score -0.9 Age Matched Z-Score 0.4. LT NECK BMD 0.864 g/cm2 Young Adult T-Score -1.2 Age Matched Z-Score 0.3. RT FEMUR, TOTAL BMD 0.850 g/cm2 Young Adult T-Score -1.3 Age Matched Z-Score 0.0. RT NECK BMD 0.789 g/cm2 Young Adult T-Score -1.8 Age Matched Z-Score -0.3. IMPRESSION: There is low bone density of the spine. There is low bone density of the left hip. There is low bone density of the right hip. FOLLOW-UP: Recommendation for the next bone density exam: 2 years. <Electronically signed by Jim Chadwick > 10/03/20 [id number]
== END ==
LOC: M WHC 10:55
PROVIDERS: ATTEND Specialist
DX: C50.919 Malignant neoplasm of unspecified site of unspecified female breast (principal); Z79.811 Long term (current) use of aromatase inhibitors

== ENCOUNTER → 2020-10-09 | Outpatient (CLI) | payer MEDICARE | LOC: M LABSMTC 09:54 | PROVIDERS: ATTEND Anesthesiology | DX: Z01.812 Encounter for preprocedural laboratory examination (principal); Z20.822 Contact with and (suspected) exposure to COVID-19 ==

== ENCOUNTER 2020-10-14 10:59 | Inpatient (IN) | payer OTHER, MEDICARE ==
--- NOTE | 2020-10-10 16:12 | HPE ---
HISTORY AND PHYSICAL DATE OF ADMISSION: 10/14/2020 CHIEF COMPLAINT: Left knee pain. HISTORY OF PRESENT ILLNESS: Neisha is a pleasant 65-year-old female with progressively worsening left knee pain and stiffness. She has failed to improve with conservative treatment. She is elected for surgery for her continued symptoms. She has pain with weightbearing activities and her activities of daily living. X-rays of her knee are notable for advanced osteoarthritis of the left knee joint. She has consented for a left total knee arthroplasty by Dr. Conner Shaver. Medical optimization was done by Dr. Garcia's office. ALLERGIES: Hayfever, Morphine, tetanus, tree nuts, tramadol as well as fresh fruits and vegetables. She is not allowed to have NG-tubes. CURRENT MEDICATIONS: 1. Vitamin B12 500 mcg a day. 2. Multivitamin once a day. 3. Vitamin D3 1000 units once a day. 4. Biotin maximum 10,000 mcg a day. 5. Tumeric. 6. Curcumin 500 mg a day. 7. Xarelto 20 mg a day. 8. Calcium 600 twice a day. 9. Preservision AREDS two tabs by mouth twice a day. 10.Creon 24,000/7600. 11.Vitamin C 500 mg every other day. 12.Anastrazole 1 mg every day. 13.Oxybutynin one every day. 14.Omeprazole 20 mg once a day. PAST MEDICAL HISTORY: 1. History of lung cancer. 2. GERD. 3. Seasonal allergies. PAST SURGICAL HISTORY: 1. Right ankle ORIF. 2. Appendectomy. 3. Low back surgery. 4. Colonoscopy. 5. Gastric bypass. 6. Hysterectomy. 7. Cholecystectomy. 8. Right total knee. 9. Bilateral knee scopes. 10.Right breast mastectomy. 11.Bunionectomy on the right. SOCIAL HISTORY: She is retired, does not smoke. Does not drink alcohol. FAMILY HISTORY: Noncontributory. REVIEW OF SYSTEMS: This patient denies chest pain or palpitations, cough, wheezing, difficulty breathing or shortness of breath. She denies abdominal pain, nausea, vomiting, diarrhea or constipation. She denies recent upper respiratory infection or urinary tract infection symptoms. She does complain of persistent pain in her left knee. PHYSICAL EXAMINATION: GENERAL: She is well-nourished, well-developed in no acute distress, alert female patient. She walks with a moderate limp favoring her left lower extremity. She is not using assistive devices. VITAL SIGNS: She is 5'3" tall and weighs 189 pounds. Temperature is 96.8, blood pressure is 135/81, pulse is 66, respirations are 14. NECK: Supple without adenopathy or jugular venous distention. LUNGS: Clear to auscultation without rales or wheeze. HEART: Regular rate and rhythm. ABDOMEN: Bowel sounds are present. EXTREMITIES: Examination of the knee revealed intact skin. She had decreased range of motion due to pain and stiffness. The limb is neurovascularly intact. LABORATORY DATA: Pro-Time 12.9, INR is 0.95, glucose is 107, BUN 14, creatinine is 0.64, sodium 142, potassium is 4.8. CBC was within normal limits with a sed rate of 16. Chest x-ray showed no acute cardiopulmonary disease processes. EKG showed sinus rhythm at 73 beats per minute. IMPRESSION: Symptomatic osteoarthritis of the left knee joint. PLAN: Consented for a left total knee arthroplasty by Dr. Conner Shaver.
[~2020-10-14] VITALS: Ht 160 cm; Wt 86.2 kg
[2020-10-14] VITALS (7 sets, daily range): BP systolic 101–116; BP diastolic 57–68; O2SAT 95
[~2020-10-14 10:59] MED LIST changes: +LIDOCAINE 1% MDV 20ML VIAL SQ PRN; +LR 1,000 ML IV ONE; +MIDAZOLAM INJ 2MG/2ML VIAL (J2250 PER 1MG) IV PRN; +ceFAZolin SOD 2 GM in IV 1 EA IV ONE; +fentaNYL 100 MCG/2 ML INJECTION (J3010) IV PRN
--- OUTSIDE RECORDS SUMMARY | 2020-10-14 11:05 | CCD | Continuity of Care Document ---
Author Author Marguerite SNOW PA-C Organization Unknown Address [address] [place] [address] Phone [phone] Problems Description No Active Problems Social History Type Date Description Comments Sex Unknown ETOH Use Rarely consumes alcohol ETOH Use Denies alcohol use Tobacco Use Start: Unknown Patient has never smoked Tobacco Use Start: Unknown Denies Smoking Allergies, Adverse Reactions, Alerts Active Allergies Reaction Severity Comments Date Hay Fever 04/07/2015 Morphine 05/18/2016 Fresh Fruit And Vegetables 0 05/18/2016 Tetanus 05/18/2016 Tree Nuts 05/02/2018 No NG Tubes 05/02/2018 Tramadol 10/30/2018 Medications Active Medications SIG Qnty Indications Ordering Provide r Date Mupirocin 2% Ointment apply a pea sized amount to the nasal passages 3 times a day for 5 days prior to surgery 22gm Conner Shaver MD 10/03/2020 Hibiclens 4% Liquid use in shower once daily for 5 days before surgery 1units Conner Shaver MD 10/03/[address] Take One Capsule By Mouth Every Day Unknown Oxybutynin Chloride ER 5mg Tablets ER 24HR Take One Tablet By Mouth Every Day Unknow n Anastrozole 1mg Tablets Take One Tablet By Mouth Every Day Unknown Vitamin C 500mg Chewtabs every other day Unknown Creon [id number] Caps DR Part Unknown Preservision Areds Tablets 2 tabs by mouth twice a day Unknown Calcium 600 600mg Tablets 1 by mouth twice a day Unknown Xarelto 20mg Tablets 1 by mouth every day Unknown Culturelle Capsules Unknown Prilosec 40mg Capsules DR 1 by mouth every day Unknown Turmeric Curcumin 500mg Capsules Unknown Biotin Maximum [id number] Tablets Dispers Unknown Vitamin D3 1000Unit Capsules 1 by mouth every day Unknown Multivitamin Adult Tablets 1 by mouth every day Unknown Vitamin B-12 Natural 500mcg Tablets Unknown Immunizations Description No Information Available Vital Signs Date Vital Result Comment 10/10/2020 2:50pm BP Systolic 135 mmHg BP Diastolic 81 mmHg Heart Rate 66 /min Body Temperature 96.8 F Height 63 inches 5'3" Weight 189.00 lb BMI (Body Mass Index) 33.5 kg/m2 Respiratory Rate 14 /min 09/22/2020 8:29am Body Temperature 96.8 F Results Test Acquired Date Facility Test Result H/L Range Note Prothrombin Time/Inr 10/03/2020 [facility] [address] [place] [address] (315)- - Prothrombin Time 12.9 seconds Normal 12.5-14.3 Inr 0.95 Normal 1 Comprehensive Metabolic Profil 10/03/2020 [facility] [address] [place] [address] (315)- - Glucose, Fasting 107 mg/dL High 70-100 Blood Urea Nitrogen 14 mg/dL Normal 7-18 Creatinine For GFR 0.64 mg/dL Normal 0.55-1.30 Glomerular Filtration Rate > 60.0 Normal >45 2 Sodium Level 142 mEq/L Normal 136-145 Potassium Serum 4.8 mEq/L Normal 3.5-5.1 Chloride Level 105 mEq/L Normal 98-107 Carbon Dioxide Level 32 mEq/L Normal 21-32 Anion Gap 5 mEq/L Low 8-16 Calcium Level 9.9 mg/dL Normal 8.8-10.2 Ast/Sgot 18 U/L Normal 7-37 Alt/SGPT 24 U/L Normal 12-78 Alkaline Phosphatase 110 U/L Normal 45-117 Bilirubin,Total 0.6 mg/dL Normal 0.2-1.0 Total Protein 6.9 GM/DL Normal 6.4-8.2 Albumin 3.6 GM/DL Normal 3.2-5.2 Albumin/Globulin Ratio 1.1 Low 1.2-2.2 CBC With Differential 10/03/2020 [facility] [address] [place] [address] (315)- - White Blood Count 4.6 10 Normal 4.0-10.0 Red Blood Count 4.47 10 Normal 4.00-5.40 Hemoglobin 13.9 g/dL Normal 12.0-15.5 Hematocrit 42.8 % Normal 36.0-47.0 Mean Corpuscular Volume 95.7 fl Normal 80.0-96.0 Mean Corpuscular Hemoglobin 31.1 pg Normal 27.0-33.0 Mean Corpuscular HGB Conc 32.5 g/dL Normal 32.0-36.5 Red Cell Distribution Width 11.9 % Normal 11.5-14.5 Platelet Count, Automated 240 10 Normal 150-450 Neutrophils % 64.8 % Normal 36.0-66.0 Lymph % 24.9 % Normal 24.0-44.0 Metcalfe % 7.4 % High 0.0-5.0 Eos % 2.2 % Normal 0.0-3.0 Baso % 0.7 % Normal 0.0-1.0 Immature Granulocyte % 0.0 % Normal 0-3.0 Nucleated Red Blood Cell % 0.0 % Normal 0-0 Neutrophils # 3.0 10 Normal 1.5-8.5 Lymph # 1.2 10 Low 1.5-5.0 Metcalfe # 0.3 10 Normal 0.0-0.8 Eos # 0.1 10 Normal 0.0-0.5 Baso # 0.0 10 Normal 0.0-0.2 Laboratory test finding 10/03/2020 [facility] l Centr [address] [place] [address] (315)- - Erythrocyte Sedimentation Rate 16 mm/hr Normal 0-30 Laboratory test finding 09/23/2020 [facility] [address] [place] [address] (315)- - Erythrocyte Sedimentation Rate <pending> Xray 09/23/2020 [facility] nter (315)- - Chest x-ray <pending> 1 THERAPUTIC HUMAN INR VALUES INDICATIONS NORMAL RANGES PROPHYLAXIS/TREATMENT OF: VENOUS THROMBOSIS 2.0-3.0 PULMONARY EMBOLISM 2.0-3.0 PREVENTION OF SYSTEMIC EMBOLISM FROM: TISSUE HEART VALVES 2.0-3.0 ACUTE MYOCARDIAL INFARCTION 2.0-3.0 VALVULAR HEART DISEASE 2.0-3.0 ATRIAL FIBRILLATION 2.0-3.0 MECHANICAL VALVES(HIGH RISK) 2.5-3.5 RECURRENT MYOCARDIAL INFARCTION 2.5-3.5 2 Units are mL/min/1.73 m2 Chronic Kidney Disease Staging per NKF: Stage I & II GFR >=60 Normal to Mildly Decreased Stage III GFR 30-59 Moderately Decreased Stage IV GFR 15-29 Severely Decreased Stage V GFR <15 Very Little GFR Left ESRD GFR <15 on PILOT CONTROL OPERATOR Procedures Date Code Description Status 09/22/2020 03951 Inject Tendon Sheath, Ligament C ompleted 08/05/2020 99681 X-Ray Knee Complete W/Obliques & Tunnel And/Or Standing Views Completed 07/25/2020 64487 X-Ray Ankle Complete Completed 07/08/2020 76720 X-Ray Ankle Complete Completed 07/08/2020 75338 Apply Cast Short Leg Completed Medical Devices Description No Information Available Encounters Type Date Location Provider Dx Diagnosis Office Visit 10/10/2020 3:00p Velas[facility] Snow PA-C M1 7.12 Unilateral primary osteoarthritis, left knee Office Visit 09/22/2020 8:30a [facility], P.A. M77.11 Lateral epicondylitis, right elbow Office Visit 08/05/2020 8:45a Velasquez Shaver MD M17.12 Unilateral primary osteoarthritis, left knee Office Visit 07/25/2020 3:30p [facility] Chiang, P.A. M25.572 Pain in left ankle and joints of left foot M19.072 Primary osteoarthritis, left ankle and foot S93.402S Sprain of unspecified ligame nt of left ankle, sequela M17.12 Unilateral primary osteoarth ritis, left knee Office Visit 07/08/2020 2:00p [facility] Chiang P.A. M25.572 Pain in left ankle and joints of left foot M19.072 Primary osteoarthritis, left ankle and foot S93.402S Sprain of unspecified ligame nt of left ankle, sequela Assessments Date Code Description Provider 10/10/2020 M17.12 Unilateral primary osteoarthriti s, left knee Jeremy Snow PA-C 09/22/2020 M77.11 Lateral epicondylitis, right elb ow Jasvir Chiang, P.A. 08/05/2020 M17.12 Unilateral primary osteoarthriti s, left knee Conner Shaver MD 07/25/2020 M25.572 Pain in left ankle and joints of left foot Jasvir Chiang, P.A. 07/25/2020 M19.072 Primary osteoarthritis, left ank le and foot Jasvir Chiang, P.A. 07/25/2020 S93.402S Sprain of unspecified ligament o f left ankle, sequela Jasvir Chiang, P.A. 07/25/2020 M17.12 Unilateral primary osteoarthriti s, left knee Jasvir Chiang, P.A. 07/08/2020 M25.572 Pain in left ankle and joints of left foot Jasvir Chiang, P.A. 07/08/2020 M25.572 Pain in left ankle and joints of left foot Jasvir Chiang, P.A. 07/08/2020 M19.072 Primary osteoarthritis, left ank le and foot Jasvir Chiang, P.A. 07/08/2020 S93.402S Sprain of unspecified ligament o f left ankle, preet Chiang, P.A. 07/08/2020 S93.402S Sprain of unspecified ligament o f left ankle, preet Chiang, P.A. Plan of Treatment Future Appointment(s):* 10/26/2020 2:00 pm - Conner Shaver MD at [facility] * 10/14/2020 3:15 pm - Jeremy Snow PA-C at [facility] Inpatient * 10/14/2020 3:15 pm - Conner Shaver MD at Surgery [facility] Inpatient Functional Status Description No Information Available Mental Status Description No Information Available Referrals Refer to Dr Reason for Referral Status Appt Date Conner Shaver [place] [id number] PER NELIDA LUCIA @ [facility] REF #[id number]. Created [address], [address] [place] [address] [phone] Jasvir Chiang PA DME PER B/S WEB NO AUTH REQU IRED FOR CAST BOOT ([id number]) AND COVERED AT 80% TO ALONDRA MCKEON Created [facility] [place] [address] [phone]
--- OUTSIDE RECORDS SUMMARY | 2020-10-14 11:05 | CCD | Continuity of Care Document ---
Author Author Marguerite CHIANG P.A. Organization Unknown Address [address] [place] [address] Phone [phone] Problems Description No Active Problems Social History Type Date Description Comments Sex Unknown ETOH Use Rarely consumes alcohol ETOH Use Denies alcohol use Tobacco Use Start: Unknown Patient has never smoked Tobacco Use Start: Unknown Denies Smoking Allergies, Adverse Reactions, Alerts Active Allergies Reaction Severity Comments Date Hay Fever 04/07/2015 Morphine 05/18/2016 Tetanus Immune Globulin 05/03 Tetanus 05/18/2016 Tetanus Toxoids 05/18/2016 Fresh Fruit And Vegetables 0 05/18/2016 Tree Nuts 05/02/2018 No NG Tubes [...] before surgery 1units Conner Shaver MD 10/03/2020 Vitamin B-12 Natural 500mcg Tablets Unknown Multivitamin Adult Tablets 1 by mouth every day Unknown Vitamin D3 1000Unit Capsules 1 by mouth every day Unknown Biotin Maximum [id number] Tablets Dispers Unknown Turmeric Curcumin 500mg Capsules Unknown Prilosec 40mg Capsules DR 1 by mouth every day Unknown Culturelle Capsules Unknown Xarelto 20mg Tablets 1 by mouth every day Unknown Calcium 600 600mg Tablets 1 by mouth twice a day Unknown Preservision Areds Tablets 2 tabs by mouth twice a day Unknown Creon [id number] Caps DR Part Unknown Vitamin C 500mg Chewtabs every other day Unknown Immunizations Description No Information Available Vital Signs Date Vital Result Comment 09/22/2020 8:29am Body Temperature 96.8 F 12/03/2019 12:58pm Body Temperature 98.0 F Height 63.5 inches 5'3.50" Weight 200.00 lb BMI (Body Mass Index) 34.9 kg/m2 Results Test Acquired Date Facility Test Result H/L Range Note Prothrombin Time/Inr 10/03/2020 [facility] entr [address] [place] [address] (170)- - Prothrombin Time 12.9 seconds Normal 12.5-14.3 Inr 0.95 Normal 1 Comprehensive Metabolic Profil 10/03/[address] [address] (688)- - Glucose, Fasting 107 mg/dL High 70-100 [...] 1.1 Low 1.2-2.2 CBC With Differential 10/03/[address] [address] (746)- - White Blood Count 4.6 10 Normal [...] 36.0-66.0 Lymph % 24.9 % Normal 24.0-44.0 [place] % 7.4 % High 0.0-5.0 Eos % 2.2 % Normal 0.0-3.0 Baso % 0.7 % Normal 0.0-1.0 Immature Granulocyte % 0.0 % Normal 0-3.0 Nucleated Red Blood Cell % 0.0 % Normal 0-0 Neutrophils # 3.0 10 Normal 1.5-8.5 Lymph # 1.2 10 Low 1.5-5.0 [place] # 0.3 10 Normal 0.0-0.8 Eos # 0.1 10 Normal 0.0-0.5 Baso # 0.0 10 Normal 0.0-0.2 Laboratory test finding 10/03/2020 [facility] l Centr [address] [place] [address] (315)- - Erythrocyte Sedimentation Rate 16 mm/hr Normal 0-30 Laboratory test finding 09/23/2020 [facility] l Cent[facility] [address] [place] [address] (315)- - Erythrocyte Sedimentation Rate <pending> Xray 09/23/2020 [facility] nter (315)- - Chest x-ray <pending> [...] Little GFR Left ESRD GFR <15 on BIN FILLER Procedures Date Code Description Status 09/22/2020 91978 Inject Tendon Sheath, Ligament C ompleted 08/05/2020 85320 X-Ray Knee Complete W/Obliques & Tunnel And/Or Standing Views Completed 07/25/2020 51010 X-Ray Ankle Complete Completed 07/08/2020 72450 X-Ray Ankle Complete Completed 07/08/2020 10021 Apply Cast Short Leg Completed Medical Devices Description No Information Available Encounters Type Date Location Provider Dx Diagnosis Office Visit 09/22/2020 8:30a Fredis Villegas.A. M77.11 Lateral epicondylitis, right elbow Office Visit 08/05/2020 8:45a Velasquez Shaver MD M17.12 Unilateral primary osteoarthritis, left knee Office Visit 07/25/2020 3:[place]. M25.572 Pain in left ankle and joints of left foot M19.072 Primary osteoarthritis, left ankle and foot S93.402S Sprain of unspecified ligame nt of left ankle, sequela M17.12 Unilateral primary osteoarth ritis, left knee Office Visit 07/08/2020 2:00p [place] M25.572 Pain in left ankle and joints of left foot M19.072 Primary osteoarthritis, left ankle and foot S93.402S Sprain of unspecified ligame nt of left ankle, sequela Assessments Date Code Description Provider 09/22/2020 M77.11 Lateral epicondylitis, right elb ow Jasvir Chiang P.A. 08/05/2020 M17.12 Unilateral primary osteoarthriti s, left knee Conner Shaver MD 07/25/2020 M25.572 Pain in left ankle and joints of left foot Jasvir Chiang P.A. 07/25/2020 M19.072 Primary osteoarthritis, left ank le and foot Jasvir Chiang, P.A. 07/25/2020 S93.402S Sprain of unspecified ligament o f left ankle, sequela Jasvir Chiang, P.A. 07/25/2020 M17.12 Unilateral primary osteoarthriti s, left knee Fredis Walton.A. 07/08/2020 M25.572 Pain in left ankle and joints of left foot Jasvir Chiang, P.A. 07/08/2020 M25.572 Pain in left ankle and joints of left foot Jasvir Chiang, P.A. 07/08/2020 M19.072 Primary osteoarthritis, left ank le and foot Jasvir Chiang, P.A. 07/08/2020 S93.402S Sprain of unspecified ligament o f left ankle, sequela Jasvir Chiang, P.A. 07/08/2020 S93.402S Sprain of unspecified ligament o f left ankle, sequela Jasvir Chiang, P.A. Plan of Treatment Future Appointment(s):* 10/26/2020 2:00 pm - Conner Shaver MD at [place] * 10/14/2020 3:15 pm - Jeremy Snow PA-C at Surgery [facility] Inpatient * 10/14/2020 3:15 pm - Conner Shaver MD at Surgery [facility] Inpatient 09/22/2020 - Merline Walton* M77.11 Lateral epicondylitis, right elbow* Follow up:* PRN Functional Status Description No Information Available Mental Status Description No Information Available Referrals Refer to Reason for Referral Status Appt Date [place] [address] PER NELIDA LUCIA @ [facility] REF #[id number]. LS Created [address] [place] [address], [address] [place] [address] [phone] Jasvir Chiang PA DME PER B/S WEB NO AUTH REQU IRED FOR CAST BOOT (L3260) AND COVERED AT 80% TO ALONDRA NT Created [address] [place], [place] [id number] [place] [address] [phone]
--- OUTSIDE RECORDS SUMMARY | 2020-10-14 11:05 | CCD | Continuity of Care Document ---
Author Author Marguerite SNOW PA-C Organization Unknown Address [address] [place] [address] Phone [phone] Problems Description No Active Problems Social History [...] 500mg Chewtabs every other day Unknown Creon [id number] Caps DR Part Unknown Preservision Areds Tablets 2 tabs by mouth twice a day Unknown Calcium 600 600mg Tablets 1 by mouth twice a day Unknown Xarelto 20mg Tablets 1 by mouth every day Unknown Culturelle Capsules Unknown Prilosec 40mg Capsules DR 1 by mouth every day Unknown Turmeric Curcumin 500mg Capsules Unknown Biotin Maximum 18769nxj Tablets Dispers Unknown Vitamin D3 1000Unit Capsules [...] Result H/L Range Note Prothrombin Time/Inr 10/03/2020 [facility] C entr [address] [place] [address] (315)- - Prothrombin Time 12.9 seconds Normal 12.5-14.3 Inr 0.95 Normal 1 Comprehensive Metabolic Profil 10/03/2020 [facility] [address] [place] [address] (315)- - Glucose, Fasting 107 mg/dL High [...] 1.1 Low 1.2-2.2 CBC With Differential 10/03/2020 [facility] [address] [place] [address] (315)- - White Blood Count 4.6 10 [...] 36.0-66.0 Lymph % 24.9 % Normal 24.0-44.0 [place] % 7.4 % High 0.0-5.0 Eos % 2.2 % Normal 0.0-3.0 Baso % 0.7 % Normal 0.0-1.0 Immature Granulocyte % 0.0 % Normal 0-3.0 Nucleated Red Blood Cell % 0.0 % Normal 0-0 Neutrophils # 3.0 10 Normal 1.5-8.5 Lymph # 1.2 10 Low 1.5-5.0 [place] # 0.3 10 Normal 0.0-0.8 Eos # 0.1 10 Normal 0.0-0.5 Baso # 0.0 10 Normal 0.0-0.2 Laboratory test finding 10/03/2020 [facility] l Centr [address] [place] [address] (315)- - Erythrocyte Sedimentation Rate 16 mm/hr Normal 0-30 Laboratory test finding 09/23/2020 [facility] Cent[facility] [address] [place] [address] (315)- - Erythrocyte Sedimentation Rate <pending> Xray 09/23/2020 [facility] nter (315)- - Chest x-ray <pending> 1 [...] Little GFR Left ESRD GFR <15 on [place] HAND Procedures Date Code Description Status 09/22/2020 20999 Inject Tendon Sheath, Ligament C ompleted 08/05/2020 75944 X-Ray Knee Complete W/Obliques & Tunnel And/Or Standing Views Completed 07/25/2020 42129 X-Ray Ankle Complete Completed 07/08/2020 30424 X-Ray Ankle Complete Completed 07/08/2020 57759 Apply Cast Short Leg Completed Medical Devices Description No Information Available Encounters Type Date Location Provider Dx Diagnosis Office Visit 10/10/2020 3:00p Velasquez Snow PA-C Z0 1.818 Encounter for other preprocedural examination M17.12 Unilateral primary osteoarth ritis, left knee Office Visit 09/22/2020 8:30a Velasquez Chiang, P.A. M77.11 Lateral epicondylitis, right elbow Office Visit 08/05/2020 8:45a Velasquez Shaver MD M17.12 Unilateral primary osteoarthritis, left knee Office Visit 07/25/2020 3:[place]p [place]. M25.572 Pain in left ankle and joints of left foot M19.072 Primary osteoarthritis, left ankle and foot S93.402S Sprain of unspecified ligame nt of left ankle, sequela M17.12 Unilateral primary osteoarth ritis, left knee Office Visit 07/08/2020 2:00p Fredis Villegas.A. M25.572 Pain in left ankle and joints of left foot M19.072 Primary osteoarthritis, left ankle and foot S93.402S Sprain of unspecified ligame nt of left ankle, sequela Assessments Date Code Description Provider 10/10/2020 Z01.818 Encounter for other preprocedura l examination Jeremy Snow PA-C 10/10/2020 M17.12 Unilateral primary osteoarthriti s, left [...] of unspecified ligament o f left ankle, arnelela Jasvir Chiang, P.A. 07/25/2020 M17.12 Unilateral primary [...] 2:00 pm - Conner Shaver MD at [place] * 10/14/2020 3:15 pm - Jeremy Snow PA-C at Surgery [facility] Inpatient * 10/14/2020 3:15 pm - Conner Shaver MD at Surgery [facility] Inpatient Functional Status Description No Information Available Mental Status Description No Information Available Referrals Refer to Reason for Referral Status Appt Date Conner Shaver MD SURGERY LT TKR WRITTEN AUTH. LS Created [facility], [address] [address] [phone] Conner Shaver [place] TKR 16255 PER NELIDA LUCIA @ [facility] REF #[id number]. Created [address] [facility], [address] [address] [phone] Jasvir Chiang PA DME PER B/S WEB NO AUTH REQU IRED FOR CAST BOOT (L3260) AND COVERED AT 80% TO ALONDRA MCKEON Created [address] [place], [place] [id number] [place] [address] [phone]
--- OUTSIDE RECORDS SUMMARY | 2020-10-14 11:06 | CCD | Continuity of Care Document ---
Author Author Marguerite GEORGE DO Organization Unknown Address [address] [place] [address] Phone [phone] Care Team Providers Care Tar Processing Technician Name Role Phone Jazmín Samaniego D.O. AUTM [phone] Blyane Shaver D.O. AUTM [phone] Problems Description No Information Available Social History Type Date Description Comments Sex Female ETOH Use Drinks Alcoholic Beverages Rarel y Tobacco Use Start: Unknown Denies Smoking Smoking Status Reviewed: 08/01/20 Denies Smoking Allergies, Adverse Reactions, Alerts Active Allergies Reaction Severity Comments Date Tetanus 08/01/2020 Fruit 08/01/2020 Tramadol 08/01/2020 Morphine 08/01/2020 Tree Nuts 08/01/2020 Medications Active Medications SIG Qnty Indications Ordering Provide r Date Vitamin B-12 500mcg Lozenges Unknown Biotin Unknown Preservision Areds Unknown Multivitamin Adult Unknown Immunizations Description No Information Available Vital Signs Date Vital Result Comment 09/19/2020 8:18am Body Temperature 96.9 F 08/01/2020 9:19am BP Systolic 138 mmHg BP Diastolic 72 mmHg Heart Rate 80 /min Respiratory Rate 16 /min Body Temperature 98.1 F Height 64.25 inches 5'4.25" Weight 194.00 lb BMI (Body Mass Index) 33.0 kg/m2 [place] Body Weight 120 lb Weight 87.998 kg BSA (Body Surface Area) 1.94 m2 Results Test Acquired Date Facility Test Result H/L Range Note Complete Blood Count 08/12/2020 [facility] enter Main Lab [address] [place] [address] [phone] White Blood Count 3.7 10 Low 4.0-10.0 Red Blood Count 4.26 10 Normal 4.00-5.40 Hemoglobin 13.4 g/dL Normal 12.0-15.5 Hematocrit 41.7 % Normal 36.0-47.0 Mean Corpuscular Volume 97.9 fl High 80.0-96.0 Mean Corpuscular Hemoglobin 31.5 pg Normal 27.0-33.0 Mean Corpuscular HGB Conc 32.1 g/dL Normal 32.0-36.5 Red Cell Distribution Width 12.0 % Normal 11.5-14.5 Platelet Count, Automated 247 10 Normal 150-450 Nucleated Red Blood Cell % 0.0 % Normal 0-0 Laboratory test finding 05/24/2020 [facility] Main Lab [address] [place], [place] [address] [phone] Pathology Request For Service (SEE NOTE) 1 Type & Screen -Incl Blood Type,Ganesh,AB SC 05/24/2020 [facility] Main Lab [address] [place] [address] [phone] Blood Type B POSITIVE Normal AB Screen (Indirect [place])Vis NEGATIVE Normal Laboratory test finding 05/05/2020 [facility] Main Lab [address] [place] [address] [phone] Pathology Request For Service (SEE NOTE) 2 1 FINAL DIAGNOSIS A-Right breast, lumpectomy: Invasive ductal carcinoma, grade 1(of III). -4/TR (See comment) Tumor size: 0.7cm in greatest dimension (microscopic measurement) Focal ductal carcinoma in situ, grade 1 (of III). No lymphovascular invasion identified. Margins are uninvolved by carcinoma in situ or invasive carcinoma. Microcalcifications associated with stroma and benign glands. Two lymph nodes negative for metastatic carcinoma (0/2). Background with extensive fibrosis. Specimen entirely submitted for evaluation. pT1b, pN0 See below for report summary. B-Submitted as "true new margin deep": Negative margin. Benign breast tissue. C-Lymph node, right axillary sentinel: One lymph node negative for metastatic carcinoma (0/1). D-Submitted as "true new margin superior": Negative margin. Benign breast tissue. E-Submitted as "true new margin inferior": Negative margin. Benign breast tissue. F-Submitted as "true new margin lateral": Negative margin. Benign breast tissue. G-Submitted as "true new margin medial": Negative margin. Benign breast tissue with small fibroadenoma. H-Submitted as "right breast excess skin": Benign skin. Negative for malignancy. TUMOR REPORT SUMMARY: BREAST, RIGHT, LUMPECTOMY - INVASIVE DUCTAL CARCINOMA. SIZE - 0.7cm in greatest dimension (microscopic measurement) GRADE (MELANIE-OCHOA) - 1 LYMPH-VASCULAR INVASION -Not identified IN-SITU COMPONENT (DCIS): Present, low grade ductal carcinoma in situ MARGINS -Uninvolved by carcinoma in situ or invasive carcinoma. RECEPTORS/TUMOR MARKERS (IMMUNOHISTOCHEMISTRY): Per DR Samaniego note, hormone positive and HER2 negative OTHER FINDINGS - Fibrosis pT N: pT1b, p N0 Comment: H&E sections show a low grade tumor with tubular and cribriform features. 05/30/2020 - 09 CLINICAL DIAGNOSIS Right breast cancer 05/25/2020 - 1456 GROSS DIAGNOSIS A - Received in formalin labeled "right breast lumpectomy" consists of a fragment of adipose tissue, 5.5 x 4.0 x 3.0 cm. Localization wire is in place. The surgeon has inked the specimen as follows; anterior green, inferior blue, lateral orange, medial yellow, posterior black, and superior red. The specimen is all submitted in 15 blocks. B - Received in formalin labeled "true new margin, deep" consists of a fragment of adipose tissue, 1 x 1 x 0.2 cm. The new margin has been inked black. All is submitted in one. C - Received in formalin labeled "right axillary sentinel lymph node" consists of a lymph node 0.5 x 0.5 x 0.2 cm. All in one. D - Received in formalin labeled "true new margin, superior" consists of a fragment of tissue, 1.5 x 1.0 x 0.2 cm. The new margin is inked black. All in one. E - Received in formalin labeled "true new margin, inferior" consists of a fragment of tissue, 2.0 x 1.0 x 0.3 cm. The true new margin has been inked black. All in one. F - Received in formalin labeled "true new margin, lateral" consists of a fragment of tissue, 1.2 x 1.0 x 0.3 cm. The new true margin has been inked black. All is submitted in one. G - Received in formalin labeled "true new margin, medial" consists of a fragment of tissue, 4.0 x 3.0 x 0.5 cm. The new margin has been inked black. All is submitted in three. H - Received in formalin labeled "right breast excess skin" consists of a fragment of skin, 3 x 2 x 0.6 cm. The specimen is grossly unremarkable. Money Manager section is submitted in one. -OA 05/25/2020 - 1456 Signed OLMAN ZAVALA MD 05/30/2020 0901 2 FINAL DIAGNOSIS Right breast, biopsy: Benign breast tissue with microcalcifications. Negative for malignancy. 05/06/2020 - 1355 CLINICAL DIAGNOSIS Right breast CA 05/05/2020 - 1423 GROSS DIAGNOSIS Received in formalin labeled "right breast biopsy" and consists of a core fragment of tissue measuring from 0.5 to 2 cm. All in two. -OA 05/05/2020 - 1423 Signed OLMAN ZAVALA MD 05/06/2020 1356 Procedures Description No Information Available Medical Devices Description No Information Available Encounters Type Date Location Provider Dx Diagnosis Office Visit 08/01/2020 9:15a [facility]astic [facility] Kim hope DO C50.411 Malig neoplm of upper-outer quadrant of right female breast N64.81 Ptosis of breast L59.8 Oth disrd of the skin, subcu related to radiation N64.89 Other specified disorders of breast Assessments Date Code Description Provider 08/01/2020 C50.411 Malignant neoplasm o f upper-outer quadrant of right female breast Kim Flavio, DO 08/01/2020 N64.81 Ptosis of breast Kim Flavio, DO 08/01/2020 L59.8 Other specified diso rders of the skin and subcutaneous tissue related to radiation Kim Flavio, DO 08/01/2020 N64.89 Other specified disorders of wilber ast Kim George DO Plan of Treatment Future Appointment(s):* 10/31/2020 9:00 am - Kim George DO at [facility] Plastic Surgery 08/01/2020 - Kim George DO* C50.411 Malignant neoplasm of upper-outer quadrant of right female breast * N64.81 Ptosis of breast * L59.8 Other specified disorders of the skin and subcutaneous tissue related to radiation * N64.89 Other specified disorders of breast * * Comments:* Patient is planned to finish radiation therapy on August 11. She would like to have corrective surgery to make her symmetrical. Bilateral mastopexy is recommended after radiation changes of the skin settled down.Findings, plan, risks and benefits of the procedure discussed with patient in details. We will re examine her 4-6 weeks post radiation, than plan for surgery for 3 month or more after cessation of radiation treatment. Breast surgeon will be involved during the procedure in order to michelle the original area of excision before the restructuring of the breast is completed with possible additional tissue excision. RTO 4-6 weeks after last radiation. Functional Status Description No Information Available Mental Status Description No Information Available Referrals Description No Information Available
--- OUTSIDE RECORDS SUMMARY | 2020-10-14 11:06 | CCD | Continuity of Care Document ---
Author Author Marguerite FERRIS MD Organization Unknown Address [address] [place] [address], it [address] [address] Phone [phone] Problems Description No Active Problems Social History [...] Indications Ordering Provide r Date Vitamin B-12 Natural 500mcg Tablets Unknown Multivitamin Adult Tablets 1 by mouth every day Unknown Vitamin D3 1000Unit Capsules 1 by mouth every day Unknown Biotin Maximum [id number] Tablets Dispers Unknown Turmeric Curcumin 500mg Capsules Unknown Prilosec 40mg Capsules DR 1 by mouth every day Unknown Culturelle Capsules Unknown Xarelto 20mg Tablets 1 by mouth every day Unknown Calcium 600 600mg Tablets 1 by mouth twice a day Unknown Preservision Areds Tablets 2 tabs by mouth twice a day Unknown Creon [id number] Caps DR Part Unknown Vitamin C 500mg Chewtabs every other day Unknown Immunizations Description No Information Available Vital Signs Date Vital Result Comment 09/22/2020 8:29am Body Temperature 96.8 F 12/03/2019 12:58pm Body Temperature 98.0 F Height 63.5 inches 5'3.50" Weight 200.00 lb BMI (Body Mass Index) 34.9 kg/m2 Results Test Acquired Date Facility Test Result H/L Range Note Prothrombin Time/Inr 10/03/2020 [facility] entr [address] [place] [address] (771)- - Prothrombin Time 12.9 seconds Normal 12.5-14.3 Inr 0.95 Normal 1 Comprehensive Metabolic Profil 10/03/2020 [facility] [address] [place] [address] (315)- - Glucose, Fasting 107 mg/dL High [...] 1.1 Low 1.2-2.2 CBC With Differential 10/03/2020 [place] [address] [place] [address] (315)- - White Blood Count 4.6 10 [...] 36.0-66.0 Lymph % 24.9 % Normal 24.0-44.0 [place] % 7.4 % High 0.0-5.0 Eos % 2.2 % Normal 0.0-3.0 Baso % 0.7 % Normal 0.0-1.0 Immature Granulocyte % 0.0 % Normal 0-3.0 Nucleated Red Blood Cell % 0.0 % Normal 0-0 Neutrophils # 3.0 10 Normal 1.5-8.5 Lymph # 1.2 10 Low 1.5-5.0 [place] # 0.3 10 Normal 0.0-0.8 Eos # 0.1 10 Normal 0.0-0.5 Baso # 0.0 10 Normal 0.0-0.2 Laboratory test finding 10/03/2020 [facility] [address] [place] [address] (315)- - Erythrocyte Sedimentation Rate 16 mm/hr Normal 0-30 Laboratory test finding 09/23/2020 [facility] [address] [place] [address] (315)- - Erythrocyte Sedimentation Rate <pending> Xray 09/23/2020 [facility] nter (315)- - Chest x-ray <pending> 1 [...] Little GFR Left ESRD GFR <15 on NEEDLE LEADER Procedures Date Code Description Status 09/22/2020 28068 Inject Tendon Sheath, Ligament C ompleted 08/05/2020 83333 X-Ray Knee Complete W/Obliques & Tunnel And/Or Standing Views Completed 07/25/2020 55895 X-Ray Ankle Complete Completed 07/08/2020 33426 X-Ray Ankle Complete Completed 07/08/2020 98718 Apply Cast Short Leg Completed Medical Devices Description No Information Available Encounters Type Date Location Provider Dx Diagnosis Office Visit 09/22/2020 8:30a [place].ACar[place] M77.11 Lateral epicondylitis, right elbow Office Visit 08/05/2020 8:45a Velasquez Ferris MD M17.12 Unilateral primary osteoarthritis, left knee Office Visit 07/25/2020 3:30p Fredis Villegas.A. M25.572 Pain in left ankle and joints of left foot M19.072 Primary osteoarthritis, left ankle and foot S93.402S Sprain of unspecified ligame nt of left ankle, sequela M17.12 Unilateral primary osteoarth ritis, left knee Office Visit 07/08/2020 2:00p [place].A. M25.572 Pain in left ankle and joints of left foot M19.072 Primary osteoarthritis, left ankle and foot S93.402S Sprain of unspecified ligame nt of left ankle, sequela Assessments Date Code Description Provider 09/22/2020 M77.11 Lateral epicondylitis, right elb ow Jasvir Chiang P.A. 08/05/2020 M17.12 Unilateral primary osteoarthriti s, left knee Conner Ferris MD 07/25/2020 M25.572 Pain in left ankle and joints of left foot Jasvir Chiang P.A. 07/25/2020 M19.072 Primary osteoarthritis, left ank le and foot Fredis Walton.A. 07/25/2020 S93.402S Sprain of unspecified ligament o f left ankle, sequela Jasvir Chiang P.A. 07/25/2020 M17.12 Unilateral primary osteoarthriti s, left knee Fredis Walton.A. 07/08/2020 M25.572 Pain in left ankle and joints of left foot Merline Walton 07/08/2020 M25.572 Pain in left ankle and joints of left foot Merline Walton 07/08/2020 M19.072 Primary osteoarthritis, left ank le and foot Jose Walton. 07/08/2020 S93.402S Sprain of unspecified ligament o f left ankle, sequela Oneil WaltonA. 07/08/2020 S93.402S Sprain of unspecified ligament o f left ankle, sequela Merline Walton Plan of Treatment 09/22/2020 - Merline Walton* M77.11 Lateral epicondylitis, right elbow* Follow up:* PRN Functional Status Description No Information Available Mental Status Description No Information Available Referrals Refer to Reason for Referral Status Appt Date Jasvir Chiang PA DME PER B/S WEB NO AUTH REQU IRED FOR CAST BOOT (L3260) AND COVERED AT 80% TO ALONDRA [facility] [address] [place] [address] [phone]
--- OUTSIDE RECORDS SUMMARY | 2020-10-14 11:06 | CCD | Continuity of Care Document ---
Author Author Marguerite FERRIS MD Organization Unknown Address [address] [place] [address], [address] [address] Phone [phone] Problems Description No Active Problems Social History [...] by mouth every day Unknown Biotin Maximum [id number] Tablets Dispers Unknown Turmeric Curcumin 500mg Capsules Unknown Prilosec 40mg Capsules DR 1 by mouth every day Unknown Culturelle Capsules Unknown Xarelto 20mg Tablets 1 by mouth every day Unknown Calcium 600 600mg Tablets 1 by mouth twice a day Unknown Preservision Areds Tablets 2 tabs by mouth twice a day Unknown Creon [id number] Caps DR Part Unknown Vitamin C 500mg Chewtabs every other day Unknown Immunizations Description No Information Available Vital Signs Date Vital Result Comment 09/22/2020 8:29am Body Temperature 96.8 F 12/03/2019 12:58pm Body Temperature 98.0 F Height 63.5 inches 5'3.50" Weight 200.00 lb BMI (Body Mass Index) 34.9 kg/m2 Results Test Acquired Date Facility Test Result H/L Range Note Prothrombin Time/Inr 10/03/2020 [facility] C entr [address] [place] [address] (315)- - Prothrombin Time 12.9 seconds Normal 12.5-14.3 Inr 0.95 Normal 1 Laboratory test finding [facility] [address] [place] [address] (315)- - Erythrocyte Sedimentation Rate <pending> Xray 09/23/2020 [facility] Ce nter (315)- - Chest x-ray <pending> 1 THERAPUTIC HUMAN INR VALUES INDICATIONS NORMAL RANGES PROPHYLAXIS/TREATMENT OF: VENOUS THROMBOSIS 2.0-3.0 PULMONARY EMBOLISM 2.0-3.0 PREVENTION OF SYSTEMIC EMBOLISM FROM: TISSUE HEART VALVES 2.0-3.0 ACUTE MYOCARDIAL INFARCTION 2.0-3.0 VALVULAR HEART DISEASE 2.0-3.0 ATRIAL FIBRILLATION 2.0-3.0 MECHANICAL VALVES(HIGH RISK) 2.5-3.5 RECURRENT MYOCARDIAL INFARCTION 2.5-3.5 Procedures Date Code Description Status 09/22/202088287 Inject Tendon Sheath, Ligament C ompleted 08/05/2020 29492 X-Ray Knee Complete W/Obliques & Tunnel And/Or Standing Views Completed 07/25/2020 49045 X-Ray Ankle Complete Completed 07/08/2020 20539 X-Ray Ankle Complete Completed 07/08/2020 21330 Apply Cast Short Leg Completed Medical Devices Description No Information Available Encounters Type Date Location Provider Dx Diagnosis Office Visit 09/22/2020 8:30a Velasquez Chiang, P.A. [...] ritis, left knee Office Visit 07/08/2020 2:00p Romelindsay Chiang, P.A. M25.572 Pain in left ankle [...] of unspecified ligament o f left ankle, sequmichael Chiang, P.A. 07/08/2020 S93.402S Sprain of unspecified ligament o f left ankle, sequela Jasvir Chiang, P.A. Plan of Treatment 09/22/2020 - Jasvir Chiang, Fredis.A.* M77.11 Lateral epicondylitis, right elbow* Follow up:* PRN Functional Status Description No Information Available Mental Status Description No Information Available Referrals Refer to Reason for Referral Status Appt Date Jasvir Chiang PA DME PER B/S WEB NO AUTH REQU IRED FOR [facility] [place] (L3260) AND COVERED AT 80% TO ALONDRA Antoine [address] [facility] [id number] [place] [id number] [phone]
--- OUTSIDE RECORDS SUMMARY | 2020-10-14 11:06 | CCD ---
Author Author [facility] Organization [facility] Address Unknown Phone Unavailable Care Team Providers Care Library Circulation Department Chief Name Role Phone Julián Skinner Unavailable PROBLEMS Type Condition ICD9-CM Code UBT65-QT Code Onset Dates Condition S tatus SNOMED Code Notes Problem Fatigue R53.83 Active 67324668 Problem Bronchitis J40 Active 37360481 Problem Chest pressure R07.89 Active 80234804 Problem Cough R05 Active 58093544 Problem Midline cystocele N81.11 Active 320125563 Problem Stress incontinence N39.3 Active 47790738 Problem Malignant neoplasm of unspecified site of right female breast C50.911 Active 538385682 Problem Pelvic organ prolapse quantification stage 4 cystocele N81.10 Active 223351155 Problem Night sweats R61 Active 64004318 Problem Incontinence in female N39.3 Active 30495970 Problem Cellulitis, toe L03.039 Active 07781440 Problem Malignant neoplasm of right female breast, unspecified estrogen receptor status, unspecified site of breast C50.911 Active 3 45104317 Problem Malignant neoplasm of upper-outer quadrant of ri ght female breast C50.411 Active 179926489 Problem Cardiomegaly I51.7 Active 6655667 Problem Encounter for fitting and adjustment of pessary Z4 6.89 Active 069424838 ALLERGIES Allergen (clinical drug ingredient) Drug/Non Drug Allergy do cumented on EMR Reaction Allergy Type Onset Date Status Tetanus Immune Globulin Hives Drug Allergy Active many fresh fruits, fresh vegetables, tree nuts Anaphylaxis Non Drug Allergy Active tramadol Tramadol HCl(NDC Code:[address]-95) heaviness i n chest, red face Drug Allergy Active morphine Morphine Sulfate(NDC Code:[address]-70) Nausea/ Vomiting/hives Drug Allergy Active ENCOUNTERS from 1955 to 2020-09-21 Encounter Location Date Provider Diagnosis [facility] [place] [address] Sep, Julián Skinner Cystocele N81.10 IMMUNIZATIONS Vaccine Route Administration Date Status Influenza (6mo & up) Fluzone Unknown Jun 02, 2015 Adm inistered SOCIAL HISTORY Tobacco Use: Social History Observation Description Date Details (start date - stop date) Never Smoker Sex Assigned At : Social History Observation Description Sex Assigned At Unknown Education: Question Answer Notes Level of Education: High School Hindu: Question Answer Notes Hindu 13 Protestant Alcohol Screening: Question Answer Notes Did you have a drink containing alcohol in the past year? No Points 0 Interpretation Negative BMI Care Goal Follow-Up Question Answer Notes Above Normal BMI Follow-Up Giving encouragement to exercise Tobacco Use: Question Answer Notes Are you a: never smoker never smoker REASON FOR REFERRAL No Information VITAL SIGNS Weight 194.8 lbs Sep, Weight-kg 88.36 kg Sep, Height 64.5 in Sep, BMI 32.92 kg/m2 Sep, Blood pressure systolic 122 mm Hg Sep, Blood pressure diastolic 72 mm Hg Sep, MEDICATIONS Medication SIG (Take, Route, Frequency, Duration) Notes Start Da te End Date Status Collagen 500 MG as directed Orally A ctive Oxybutynin Chloride ER 5 MG 1 tablet Orally Once a day for 30 da y(s) Sep, Active PreserVision AREDS - as directed Orally Active Vitamin D3 1000 UNIT 1 tablet Orally twice a day Active Calcium & Magnesium Carbonates 311-232 MG plus d Orally twice daily Not-Taking Vitamin B12 1000 MCG 1 tablet Orally Once a day Active Creon 02952-05440 UNIT as directed Orally three times daily Active Citracal +D3 250-107-500 MG-MG-UNIT Orally Active Fish Oil 1000 MG 1 capsule Orally Daily Not-Taking CoQ-10 100 MG 1 capsule with a meal Orally Once a day Not-Taking Multivitamin Adult - Orally Acti ve Culturelle - as directed Orally Not- Taking Vitamin C 500 MG 1 tablet Orally twice a day Not-Taking May Have tumeric/curcumin daily A ctive Omeprazole 40 MG 1 capsule Orally Once a day Not-Taking Valium 5 MG 1 tablet PRIOR to MRI biopsy AFTER you sign consent Orally once for 1 day Not-Taking Biotin Maximum Strength 82558 MCG 1 tablet Orally twice daily Active Qunol Ultra CoQ10 100-150 MG-UNIT Orally Not-Taking Aspir-Low 81 MG 1 tablet Orally every other day Not-Taking PROCEDURES No Information RESULTS No Results REASON FOR VISIT 3WK POST OP MEDICAL (GENERAL) HISTORY Type Description Date Medical History seasonal allergies Medical History back pain Medical History rotator cuff tear/2010--right Medical History right knee pain/OA Medical History depression Medical History hx adenocarcinoma uterus Medical History hx abnormal paps Medical History arhtritis knees and back Medical History breast cancer - Rt Surgical History back surgery Surgical History tubal ligation Surgical History appendectomy Surgical History D&C Surgical History ankle surgery/right Surgical History hysterectomy, total with BSO 2006 Surgical History knee surgery/left Surgical History bunionectomy and right foot surgery--lar ge toe Surgical History tubal , tube removed Surgical History colonoscopy 2010 2016 Surgical History gallbladder 2015 Surgical History gastric bypass 2011 Surgical History Right knee- arthroscopy 2017 Surgical History lumpectomy, right breast Surgical History lymph node resection Surgical History vaginal repair Goals Section No Information Health Concerns No Information MEDICAL EQUIPMENT No Information MENTAL STATUS No Information FUNCTIONAL STATUS No Information ASSESSMENTS Encounter Date Diagnosis Assessment Notes Treatment Notes Treatm ent Clinical Notes Sep, Cystocele (ICD-10 - N81.10) PLAN OF TREATMENT Medication Medication Name Sig Start Date Stop Date Oxybutynin Chloride ER 5 MG 1 tablet Orally Once a day for 3 0 day(s) Sep, Next Appt Details Provider Name:Julián Skinner, 2020-09-23 08:00:00 AM, [address] [place] [address], [id number], Provider Name:Jazmín Samaniego, 20-11-25 09:00:00 AM, [address] [place] [address], [id number], Insurance Providers Payer Name Payer Address Payer Phone Insured Name Patient Relati onship to Insured Coverage Start Date Coverage End Date MEDICARE BLUE PPO [address] [place] [id number] JOHNSON HUGHES self
--- OUTSIDE RECORDS SUMMARY | 2020-10-14 11:06 | CCD | Continuity of Care Document ---
Author Author Marguerite CHIANG P.A. Organization Unknown Address [address] [place] [address] Phone [phone] Problems Description No Active Problems Social History [...] by mouth every day Unknown Biotin Maximum 22078yjx Tablets Dispers Unknown Turmeric Curcumin 500mg Capsules Unknown Prilosec 40mg Capsules DR 1 by mouth every day Unknown Culturelle Capsules Unknown Xarelto 20mg Tablets 1 by mouth every day Unknown Calcium 600 600mg Tablets 1 by mouth twice a day Unknown Preservision Areds Tablets 2 tabs by mouth twice a day Unknown Creon [id number] Caps DR Part Unknown Vitamin C 500mg Chewtabs every other day Unknown Immunizations Description No Information Available Vital Signs Date Vital Result Comment 09/22/2020 8:29am Body Temperature 96.8 F 12/03/2019 12:58pm Body Temperature 98.0 F Height 63.5 inches 5'3.50" Weight 200.00 lb BMI (Body Mass Index) 34.9 kg/m2 Results Description No Information Available Procedures Date Code Description Status 08/05/2020 79940 X-Ray Knee Complete W/Obliques & Tunnel And/Or Standing Views Completed 07/25/2020 01683 X-Ray Ankle Complete Completed 07/08/2020 21911 X-Ray Ankle Complete Completed 07/08/2020 73559 Apply Cast Short Leg Completed Medical Devices Description No Information Available Encounters Type Date Location Provider Dx Diagnosis Office Visit 08/05/2020 8:45a Velasquez Shaver MD M17.12 Unilateral primary osteoarthritis, left knee Office Visit 07/25/2020 3:30p Fredis Villegas.A. M25.572 Pain in left ankle and joints of left foot M19.072 Primary osteoarthritis, left ankle and foot S93.402S Sprain of unspecified ligame nt of left ankle, sequela M17.12 Unilateral primary osteoarth ritis, left knee Office Visit 07/08/2020 2:00p [place] Chiang P.ACarol M25.572 Pain in left ankle and joints [...] o f left ankle, sequela Jasvir Chiang PCarolA. 07/25/2020 M17.12 Unilateral primary osteoarthriti s, left knee Merline Walton 07/08/2020 M25.572 Pain in left ankle and joints of left foot Merline Walton 07/08/2020 M25.572 Pain in left ankle and joints of left foot Oneil WaltonACarol 07/08/2020 M19.072 Primary osteoarthritis, left ank le and foot Merline Walton 07/08/2020 S93.402S Sprain of unspecified ligament o f left ankle, sequela Fredis aWlton.A. 07/08/2020 S93.402S Sprain of unspecified ligament o f left ankle, sequela Jasvir Chiang, P.A. Plan of Treatment No Information Available Functional Status Description No Information Available Mental Status Description No Information Available Referrals Refer to Dr Reason for Referral Status Appt Date Jasvir Chiang PA DME PER B/S WEB NO AUTH REQU IRED FOR [place] (L3260) AND COVERED AT 80% TO ALONDRA MCKEON Created [address] [facility] [address] [place] [address] [phone]
--- OUTSIDE RECORDS SUMMARY | 2020-10-14 11:06 | CCD | Continuity of Care Document ---
Author Author Marguerite GARCIA M.D. Organization Unknown Address [address] [address] Phone [phone] Care Team Providers Care Breeding Manager Name Role Phone Bin Barclay M.D. AUTM [phone] Problems Active Problems Provider Date Degenerative joint disease involving multiple joints Kathleen Garcia RPA-C Onset: 05/28/2012 Obesity Jesica Barnes D., NOC ANALYST-C Onset: 02/14 Allergic rhinitis Jesica Barnes D., NOC ANALYST-C Onset: 02/14 History of bariatric surgical procedure Jesica Barnes D. , NOC ANALYST-C Onset: 02/14/2015 Note: 2011 Vitamin D deficiency Jesica Barnes D., FNP-C Onset: 01/31 Asthma Bereket Garcia M.D. Onset: 6 Social History Type Date Description Comments Sex Unknown Tobacco Use Start: Unknown Patient has never smoked Allergies, Adverse Reactions, Alerts Active Allergies Reaction Severity Comments Date Morphine 07/26/2010 Tdap 07/26/2010 Tree Nuts facial/tongue swelling 04/28 Tramadol 01/02/2019 Medications Active Medications SIG Qnty Indications Ordering Provide r Date Epipen 2-Chaparro 0.3mg/0 .3ML Solution Auto-Inject inject as directed 2units Bereket Garcia M.D . 10/05/2020 Multi-Vitamins Tablets 1 po qd OTC Unknown Vitamin C 500mg Capsules ER 2 po qd OTC Unknown Calcium 600 600mg Tablets 1 by mouth qd OTC Unknown Vitamin B12 1000mcg Tablets ER 1 by mouth bid OTC Unknown Vitamin D3 50mcg (2000 Ut) Tablets 1 by mouth bid OTC Unknown Turmeric Curcumin 500mg Capsules 1 p.o. qd Unknown Biotin Maximum [id number] Tablets Di spers 2 by mouth every day OTC Unknown Collagen Ultra Capsules 1 qd OTC Unknown Preservision Areds Capsules take one capsule by mouth twice a day OTC Unknown Creon [id number] Caps DR Sandrine take one po by mouth tid with snacks/meals every day Unknown Medications Administered in Office Medication SIG Qnty Indications Ordering Provider Date Injection (SC)/(Im) Injection Bereket Garcia M.D. 10/05/2020 Injection (SC)/(Im) Injection Kathleen Garcia RPA-C 06/10/2012 Injection (SC)/(Im) Injection Janey Payan NOC ANALYST-BC 06/26/2011 Immunizations CPT Code Status Date Vaccine Lot # 28623 Given 07/19/2020 Influenza Virus Vaccine, Quadrivalent, Slit Virus, Im Use 3Y & Up [id number] Given 07/03/2017 Influenza Virus Vaccine, Quadrivalent, Slit Virus, Im Use 3Y & Up [id number] 12976 Given 06/26/2011 Influenza Virus Vac. Split Virus Individuals 3 Years And Above [id number] Given 04/16/2011 PPD Tuberculosis Intradermal Vital Signs Date Vital Result Comment 10/05/2020 2:48pm BP Systolic 116 mmHg BP Diastolic 78 mmHg Body Temperature 97.1 F Heart Rate 88 /min Respiratory Rate 18 /min Height 63 inches 5'3" Weight 190.00 lb [place] Body Weight 115 lb BMI (Body Mass Index) 33.7 kg/m2 O2 % BldC Oximetry 95 % 07/19/2020 1:42pm BP Systolic 128 mmHg BP Diastolic 84 mmHg Body Temperature 98.1 F Heart Rate 68 /min Respiratory Rate 14 /min Height 63 inches 5'3" Weight 190.00 lb [place] Body Weight 115 lb BMI (Body Mass Index) 33.7 kg/m2 O2 % BldC Oximetry 94 % Results Test Acquired Date Facility Test Result H/L Range Note Prothrombin Time/Inr 10/03/2020 [facility]) [phone] Prothrombin Time 12.9 seconds Normal 12.5-14.3 Inr 0.95 Normal 1 Comprehensive Metabolic Profil 10/03/2020 [facility]) [phone] Glucose, Fasting 107 mg/dL High 70-100 Blood [...] 1.1 Low 1.2-2.2 CBC With Differential 10/03/2020 [facility]) [phone] White Blood Count 4.6 10 Normal 4.0-10.0 [...] 36.0-66.0 Lymph % 24.9 % Normal 24.0-44.0 Treasure % 7.4 % High 0.0-5.0 Eos % 2.2 % Normal 0.0-3.0 Baso % 0.7 % Normal 0.0-1.0 Immature Granulocyte % 0.0 % Normal 0-3.0 Nucleated Red Blood Cell % 0.0 % Normal 0-0 Neutrophils # 3.0 10 Normal 1.5-8.5 Lymph # 1.2 10 Low 1.5-5.0 Treasure # 0.3 10 Normal 0.0-0.8 Eos # 0.1 10 Normal 0.0-0.5 Baso # 0.0 10 Normal 0.0-0.2 Laboratory test finding 10/03/2020 [facility]) [phone] Erythrocyte Sedimentation Rate 16 mm/hr Normal 0 -30 CBC With Auto Differential OB 09/15/2020 [facility]) [phone] White Blood Count 4.1 10 Normal 4.0-10.0 Red Blood Count 4.34 10 Normal 4.00-5.40 Hemoglobin 13.4 g/dL Normal 12.0-15.5 Hematocrit 41.6 % Normal 36.0-47.0 Mean Corpuscular Volume 95.9 fl Normal 80.0-96.0 Mean Corpuscular Hemoglobin 30.9 pg Normal 27.0-33.0 Mean Corpuscular HGB Conc 32.2 g/dL Normal 32.0-36.5 Red Cell Distribution Width 12.0 % Normal 11.5-14.5 Platelet Count, Automated 233 10 Normal 150-450 Neutrophils % 48.8 % Normal 36.0-66.0 Lymph % 35.3 % Normal 24.0-44.0 Treasure % 10.4 % High 0.0-5.0 Eos % 4.3 % High 0.0-3.0 Baso % 1.0 % Normal 0.0-1.0 Immature Granulocyte % 0.2 % Normal 0-3.0 Nucleated Red Blood Cell % 0.0 % Normal 0-0 Neutrophils # 2.0 10 Normal 1.5-8.5 Lymph # 1.5 10 Normal 1.5-5.0 Treasure # 0.4 10 Normal 0.0-0.8 Eos # 0.2 10 Normal 0.0-0.5 Baso # 0.0 10 Normal 0.0-0.2 Comprehensive Metabolic Profil 09/15/2020 [facility] [phone] Glucose, Fasting 108 mg/dL High 70-100 Blood Urea Nitrogen 12 mg/dL Normal 7-18 Creatinine For GFR 0.66 mg/dL Normal 0.55-1.30 Glomerular Filtration Rate > 60.0 Normal >45 3 Sodium Level 142 mEq/L Normal 136-145 Potassium Serum 4.1 mEq/L Normal 3.5-5.1 Chloride Level 106 mEq/L Normal 98-107 Carbon Dioxide Level 32 mEq/L Normal 21-32 Anion Gap 4 mEq/L Low 8-16 Calcium Level 9.3 mg/dL Normal 8.8-10.2 Ast/Sgot 18 U/L Normal 7-37 Alt/SGPT 26 U/L Normal 12-78 Alkaline Phosphatase 123 U/L High 45-117 Bilirubin,Total 0.5 mg/dL Normal 0.2-1.0 Total Protein 6.7 GM/DL Normal 6.4-8.2 Albumin 3.6 GM/DL Normal 3.2-5.2 Albumin/Globulin Ratio 1.2 Normal 1.2-2.2 Laboratory test finding 09/15/2020 [facility]) [phone] Ca15-3 Antigen 2.1 U/ML Normal <32.4 4 Carcinoembryonic Antigen 1.1 NG/ML Normal <2.5 5 Complete Blood Count 08/12/2020 [facility] [phone] White Blood Count 3.7 10 Low 4.0-10.0 [...] Blood Cell % 0.0 % Normal 0-0 CBC With Auto Differential OB 08/11/2020 [facility]) [phone] White Blood Count 3.9 10 Low 4.0-10.0 Red Blood Count 4.26 10 Normal 4.00-5.40 Hemoglobin 13.4 g/dL Normal 12.0-15.5 Hematocrit 41.5 % Normal 36.0-47.0 Mean Corpuscular Volume 97.4 fl High 80.0-96.0 Mean Corpuscular Hemoglobin 31.5 pg Normal 27.0-33.0 Mean Corpuscular HGB Conc 32.3 g/dL Normal 32.0-36.5 Red Cell Distribution Width 12.1 % Normal 11.5-14.5 Platelet Count, Automated 250 10 Normal 150-450 Neutrophils % 52.1 % Normal 36.0-66.0 Lymph % 33.5 % Normal 24.0-44.0 Treasure % 9.1 % High 0.0-5.0 Eos % 4.2 % High 0.0-3.0 Baso % 0.8 % Normal 0.0-1.0 Immature Granulocyte % 0.3 % Normal 0-3.0 Nucleated Red Blood Cell % 0.0 % Normal 0-0 Neutrophils # 2.0 10 Normal 1.5-8.5 Lymph # 1.3 10 Low 1.5-5.0 Treasure # 0.4 10 Normal 0.0-0.8 Eos # 0.2 10 Normal 0.0-0.5 Baso # 0.0 10 Normal 0.0-0.2 Comprehensive Metabolic Profil 07/13/2020 [facility]) [phone] Glucose, Fasting 99 mg/dL Normal 70-100 Blood Urea Nitrogen 13 mg/dL Normal 7-18 Creatinine For GFR 0.65 mg/dL Normal 0.55-1.30 Glomerular Filtration Rate > 60.0 Normal >45 6 Sodium Level 142 mEq/L Normal 136-145 Potassium Serum 4.1 mEq/L Normal 3.5-5.1 Chloride Level 106 mEq/L Normal 98-107 Carbon Dioxide Level 31 mEq/L Normal 21-32 Anion Gap 5 mEq/L Low 8-16 Calcium Level 9.4 mg/dL Normal 8.8-10.2 Ast/Sgot 15 U/L Normal 7-37 Alt/SGPT 18 U/L Normal 12-78 Alkaline Phosphatase 100 U/L Normal 45-117 Bilirubin,Total 0.7 mg/dL Normal 0.2-1.0 Total Protein 6.9 GM/DL Normal 6.4-8.2 Albumin 3.8 GM/DL Normal 3.2-5.2 Albumin/Globulin Ratio 1.2 Normal 1.2-2.2 Laboratory test finding 07/13/2020 [facility] [phone] Ca15-3 Antigen 5.6 U/ML Normal <32.4 7 Carcinoembryonic Antigen 1.1 NG/ML Normal <2.5 8 CBC With Auto Differential OB 07/13/2020 [facility]) [phone] White Blood Count 5.5 10 Normal 4.0-10.0 Red Blood Count 4.34 10 Normal 4.00-5.40 Hemoglobin 13.5 g/dL Normal 12.0-15.5 Hematocrit 42.6 % Normal 36.0-47.0 Mean Corpuscular Volume 98.2 fl High 80.0-96.0 Mean Corpuscular Hemoglobin 31.1 pg Normal 27.0-33.0 Mean Corpuscular HGB Conc 31.7 g/dL Low 32.0-36.5 Red Cell Distribution Width 11.9 % Normal 11.5-14.5 Platelet Count, Automated 242 10 Normal 150-450 Neutrophils % 58.2 % Normal 36.0-66.0 Lymph % 32.2 % Normal 24.0-44.0 Treasure % 7.1 % High 0.0-5.0 Eos % 1.6 % Normal 0.0-3.0 Baso % 0.5 % Normal 0.0-1.0 Immature Granulocyte % 0.4 % Normal 0-3.0 Nucleated Red Blood Cell % 0.0 % Normal 0-0 Neutrophils # 3.2 10 Normal 1.5-8.5 Lymph # 1.8 10 Normal 1.5-5.0 Treasure # 0.4 10 Normal 0.0-0.8 Eos # 0.1 10 Normal 0.0-0.5 Baso # 0.0 10 Normal 0.0-0.2 Type & Screen -Incl Blood Type,Ganesh,AB SC 05/24/2020 [facility]) [phone] Blood Type B POSITIVE Normal AB Screen (Indirect [place])Vis NEGATIVE Normal CBC 05/16/2020 [facility] WBC 4.8 10E3/uL 4.1 - 10.9 9 RBC 4.24 10E6/uL 4.20 - 6.30 HGB 13.6 g/dL 12.0 - 18.0 HCT 40.6 % 37.0 - 51.0 MCV 95.8 fL 80.0 - 97.0 MCH 32.1 pg High 26.0 - 32.0 MCHC 33.5 g/dL 31.0 - 36.0 PLT 248 10E3/uL 140 - 440 RDW-CV 11.7 % 11.5 - 14.5 Lym% 30.2 % 10.0 - 58.5 Neut% 61.4 % 37.0 - 92.0 MXD% 8.4 % 0.1 - 24.0 Lym# 1.4 10E3/uL 0.6 - 4.1 Neut# 3.0 % 2.0 - 7.8 MXD# 0.4 10E3/uL 0.0 - 1.8 MPV 9.6 fL 9.0 - 13.0 CMP 05/16/2020 [facility] Glu 103 mg/dL 70 - 110 BUN 13 mg/dL 8 - 23 Creat 0.6 mg/dL 0.5 - 1.0 BUN/Creatinine Ratio 21.9 CALC Na 140 mmol/L 136 - 145 K 3.9 mmol/L 3.5 - 5.1 CL 103.4 mmol/L 98.0 - 107.0 Co2 28.0 mmol/L 22.0 - 29.0 CA 8.9 mg/dL 8.6 - 10.2 TP 5.9 g/dL Low 6.6 - 8.7 Alb 4.0 g/dL 3.4 - 4.8 A/G Ratio 2.1 CALC Globulin 1.9 CALC Alp 107.9 U/L 35 - 129 Alt (SGPT) 10 U/L 0 - 41 Ast (Sgot) 18 U/L 0 - 40 Tbili 0.42 mg/dL 0.0 - 1.2 Osmolality-Calculated 280.5 CALC Anion Gap 13 mmol/L eGFR 110 # Calc 10 eGFR Non-Afr. Indonesian 95 # Calc 11 Laboratory test finding 04/28/[address] [address] (315)- - Cdiff NEGATIVE Negative 12 Culture Stool And Gram Stain 04/28/2020 [place] [address] (315)- - Ccult Final report . Ccres1 Comment . 13 Ssscreen Final report High . 14 Ssres1 Aeromonas specie <SEE NOTE> High . 15 Ssres2 Comment . 16 Ssres5 Comment . 17 Laboratory test finding 04/28/2020 [place] [address] (315)- - Ecstox Negative Negative 18 Pancreatic Elastase, Fecal 401 >200 1 9 CBC 04/26/2020 [place] [address] (315)- - WBC 3.8 K/mm3 Low 4.0-10.0 RBC 4.19 M/mm3 4.00-5.50 HGB 13.4 gm/dL 12.0-16.0 HCT 40.8 % 36.0-48.8 MCV 97.4 fl High 80-96 MCH 32.0 pg High 27.0-31.0 MCHC 32.8 g/dL 32.0-36.0 RDW 11.5 % 10.0-14.5 PLT 217 K/mm3 172-450 Iron Profile 04/26/2020 [place] [address] (315)- - Fe 106 g/dL 50-170 Tibc 398 g/dL 250-450 Sat 27 % 20-50 Laboratory test finding 04/26/2020 [place] [address] (315)- - Ferritin 25 ng/mL 8-252 20 Vitamin D, 25-Hydroxy 35.0 ng/mL 30.0-100.0 21 Vitamin B12 1305 pg/mL High 232-1245 22 Vitamin A 33.3 g/dL 22.0-69.5 23 1 THERAPUTIC HUMAN INR VALUES INDICATIONS NORMAL [...] Little GFR Left ESRD GFR <15 on SHOW CARD WRITER 3 Units are mL/min/1.73 m2 Chronic Kidney Disease Staging per NKF: Stage I & II GFR >=60 Normal to Mildly Decreased Stage III GFR 30-59 Moderately Decreased Stage IV GFR 15-29 Severely Decreased Stage V GFR <15 Very Little GFR Left ESRD GFR <15 on SHOW CARD WRITER 4 THE CA 15-3 ASSAY IS PERFORM ED ON THE [place] BY CHEMILUMINESCENCE AND SHOULD NOT BE COMPARED INTERCHANGEABLY WITH OTHER METHODS. IT SHOULD NOT BE USED ALONE A SCREENING TEST OR DIAGNOSIS FOR THE PRESENCE OR ABSENCE OF MALIGNANT DISEASE. PREDICTIONS OF DISEASE RECURRENCE SHOULD NOT BE BASED SOLELY ON VALUES OBTAINED FROM SERIAL PATIENT SERUM VALUES. 5 THE CEA ASSAY IS PERFORMED O N THE [place] BY CHEMILUMINESCENCE AND SHOULD NOT BE COMPARED INTERCHANGEABLY WITH OTHER METHODS. IT SHOULD NOT BE USED ALONE A SCREENING TEST OR DIAGNOSIS FOR THE PRESENCE OR ABSENCE OF MALIGNANT DISEASE. PREDICTIONS OF DISEASE RECURRENCE SHOULD NOT BE BASED SOLELY ON VALUES OBTAINED FROM SERIAL PATIENT SERUM VALUES. 6 Units are mL/min/1.73 m2 Chronic Kidney Disease Staging per NKF: Stage I & II GFR >=60 Normal to Mildly Decreased Stage III GFR 30-59 Moderately Decreased Stage IV GFR 15-29 Severely Decreased Stage V GFR <15 Very Little GFR Left ESRD GFR <15 on SHOW CARD WRITER 7 THE CA 15-3 ASSAY IS PERFORM ED ON THE [place] BY CHEMILUMINESCENCE AND SHOULD NOT BE COMPARED INTERCHANGEABLY WITH OTHER METHODS. IT SHOULD NOT BE USED ALONE A SCREENING TEST OR DIAGNOSIS FOR THE PRESENCE OR ABSENCE OF MALIGNANT DISEASE. PREDICTIONS OF DISEASE RECURRENCE SHOULD NOT BE BASED SOLELY ON VALUES OBTAINED FROM SERIAL PATIENT SERUM VALUES. 8 THE CEA ASSAY IS PERFORMED O N THE [place] BY CHEMILUMINESCENCE AND SHOULD NOT BE COMPARED INTERCHANGEABLY WITH OTHER METHODS. IT SHOULD NOT BE USED ALONE A SCREENING TEST OR DIAGNOSIS FOR THE PRESENCE OR ABSENCE OF MALIGNANT DISEASE. PREDICTIONS OF DISEASE RECURRENCE SHOULD NOT BE BASED SOLELY ON VALUES OBTAINED FROM SERIAL PATIENT SERUM VALUES. 9 NORMAL RANGES Age WBC RBC HGB HCT MCV PLT Adult M 4.1-10.9 4.20-6.30 12.0-18.0 37.0-51.0 80-97 140-440 Adult F 4.1-10.9 4.04-5.48 12.0-18.0 37.0-51.0 80-97 140-440 0 -1 Yr 5.0-20.0 3.9-5.9 15-18 MV: 44 MV: 91 MV: 277 2-9 Yr. 6.0-17.0 3.8-5.4 11-13 MV: 37 MV: 78 MV: 300 10 Yrs. 5.0-13.0 3.8-5.4 12-15 MV: 39 MV: 80 MV: 250 NOTE: * FOR ADULT BLACK MALES AND FEMALES, NORMAL WBC IS 2.9-7.7 K/ML * FOR ADULT BLACK MALES AND FEMALES, NORMAL RBC,HGB, AND HCT IS 5% LESS SOURCE FOR DATA: [employer] 1800 OPERATION MANUAL( AUTOMATED BLOOD COUNTS AND DIFF.) APPENDIX B-3 CHRONIC KIDNEY DISEASE STAGING PER NKF: MALE GFR INTERPRETATION: 20-49 YRS: >60 mL/min Normal 50-59 YRS: >56 mL/min Normal 60-69 YRS: >49 mL/min Normal 70-79 YRS: >42 mL/min Normal 80 and above >35 mL/min Normal FEMALE GRF INTERPRETATION: 20-39 YRS: >60 mL/min Normal 40-49 YRS: >58 mL/min Normal 50-59 YRS: >51 mL/min Normal 60-69 YRS: >45 mL/min Normal 70-79 YRS: >39 mL/min Normal 80 and above >32 mL/min Normal 10 CKD-EPI 11 CKD-EPI 12 THIS TEST IS PERFORMED USING A RAPID IMMUNONASSAY FOR DETECTING CLOSTRIDIUM DIFFICILE TOXINS A AND B. 13 No Campylobacter species iso lated. 14 05/04/20 1209: REMI/SHIG SCRN previously reported as: Preliminary report 15 Aeromonas species 05/03/20 1205: SS RESULT1 previously reported as: Comment Microbiological testing to rule out the presence of possible pathogens is in progress. Heavy growth 16 No Salmonella or Shigella re covered. 17 S = Susceptible; I = Inte rmediate; R = Resistant P = Positive; N = Negative MICS are expressed in micrograms per mL Antibiotic RSLT#1 RSLT#2 RSLT#3 RSLT#4 Ceftriaxone S Ciprofloxacin S Gentamicin S Levofloxacin S Meropenem S Piperacillin/Tazobactam S Trimethoprim/Sulfa S 18 Performed at: [address] [id number] Poultry Process Worker: Lu Seay MD, Phone: [phone] INFCE Result Units: ug Elast ./g Severe Pancreatic Insufficiency: <100 Moderate Pancreatic Insufficiency: 100 - 200 Normal: >200 Performed at: [address] [id number] Poultry Process Worker: Toby Peralta MD, Phone: [phone] FAX [phone] 21 Vitamin D deficiency has bee n defined by the [employer] and an Endocrine Society practice guideline as a level of serum 25-OH vitamin D less than 20 ng/mL (1,2). The Endocrine Society went on to further define vitamin D insufficiency as a level between 21 and 29 ng/mL (2). 1. IOM ([employer]). 2010. Di etary reference intakes for calcium and D. [place]: The National Academies Press. 2. Rian MF, Lefty NC, Efraín santana GUIDRY, et al. Evaluation, treatment, and prevention of vitamin D deficiency: an Endocrine Society clinical practice guideline. JCEM. 2010; 96(7):1911-30. Performed at: [address] [id number] Poultry Process Worker: Lu Seay MD, Phone: [phone] Performed at: [address] [id number] Poultry Process Worker: Lu Seay MD, Phone: [phone] Reference intervals for nusrat min A determined from [facility] internal studies. Individuals with vitamin A less than 20 ug/dL are considered vitamin A deficient and those with serum concentrations less than 10 ug/dL are considered severely deficient. This test was developed and its performance characteristics determined by [facility]. It has not been cleared or approved by the Food and Drug Administration. Performed at: [address] [id number] Poultry Process Worker: Toby Peralta MD, Phone: [phone] Procedures Date Code Description Status 10/05/2020 07744 Injection (SC)/(Im) Completed 10/05/2020 93694 Electrocardiogram Complete Compl eted 05/16/2020 94587 Electrocardiogram Complete Compl eted Medical Devices Description No Information Available Encounters Type Date Location Provider Dx Diagnosis Office Visit 10/05/2020 2:30p [place] [facility] Bereket Garcia M. D. Z01.810 Encounter for preprocedural cardiovascular examination L50.0 Allergic urticaria Office Visit 07/19/2020 2:00p [place] [facility] Bereket Garcia M.D . Z23 Encounter for immunization Z01.810 Encounter for preprocedural cardiovascular examination Office Visit 05/16/2020 11:30a [place] [facility] Bereket Garcia M. D. K90.9 Intestinal malabsorption, unspecified Z01.810 Encounter for preprocedural cardiovascular examination Assessments Date Code Description Provider 10/05/2020 Z01.810 Encounter for preprocedural card iovascular examination Bereket Garcia M.D. 10/05/2020 L50.0 Allergic urticaria Tanvir Garcia M.D. 07/19/2020 Z23 Encounter for immunization Dnoald Bereket coates M.D. 07/19/2020 Z01.810 Encounter for preprocedural card iovascular examination Bereket Garcia M.D. 05/16/2020 K90.9 Intestinal malabsorption, unspec ified Bereket Garcia M.D. 05/16/2020 Z01.810 Encounter for preprocedural card iovascular examination Bereket Garcia M.D. Plan of Treatment No Information Available Functional Status Description No Information Available Mental Status Description No Information Available Referrals Description No Information Available
--- OUTSIDE RECORDS SUMMARY | 2020-10-14 11:06 | CCD ---
Author Author [facility] Organization [facility] Address Unknown Phone Unavailable Care Team Providers Care Umbrella Supervisor Name Role Phone Julián Skinner Unavailable PROBLEMS Type Condition ICD9-CM Code ZTI67-PV Code Onset Dates Condition S tatus SNOMED Code Notes Problem Fatigue R53.83 Active 89197438 Problem Bronchitis J40 Active 73332684 Problem Chest pressure R07.89 Active 62539595 Problem Cough R05 Active 01540581 Problem Midline cystocele N81.11 Active 554769681 Problem Stress incontinence N39.3 Active 91845324 Problem Malignant neoplasm of unspecified site of right female breast C50.911 Active 864689656 Problem Pelvic organ prolapse quantification stage 4 cystocele N81.10 Active 848188873 Problem Night sweats R61 Active 99068099 Problem Incontinence in female N39.3 Active 37723770 Problem Cellulitis, toe L03.039 Active 85383748 Problem Malignant neoplasm of right female breast, unspecified estrogen receptor status, unspecified site of breast C50.911 Active 3 46656181 Problem Malignant neoplasm of upper-outer quadrant of ri 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 breast C50.411 Active 886604452 Problem Cardiomegaly I51.7 Active 1801295 Problem Encounter for fitting and adjustment of pessary Z4 6.89 Active 241194290 ALLERGIES Allergen (clinical drug ingredient) Drug/Non Drug Allergy do cumented on EMR Reaction Allergy Type Onset Date Status Tetanus Immune Globulin Hives Drug Allergy Active many fresh fruits, fresh vegetables, tree nuts Anaphylaxis Non Drug Allergy Active tramadol Tramadol HCl(NDC Code:[address]-49) heaviness i n chest, red face Drug Allergy Active morphine Morphine Sulfate(NDC Code:[address]-39) Nausea/ Vomiting/hives Drug Allergy Active ENCOUNTERS from 1955 to 2020-09-30 Encounter Location Date Provider Diagnosis [facility] [place] [address] Sep, Julián Skinner Cystocele N81.10 and Aftercare following surgery of the genitourinary system Z48.816 IMMUNIZATIONS Vaccine Route Administration Date Status Influenza (6mo & up) Fluzone Unknown Jun 02, 2015 Adm inistered SOCIAL HISTORY Tobacco Use: Social History Observation Description Date Details (start date - stop date) Never Smoker Sex Assigned At : Social History Observation Description Sex Assigned At Unknown Education: Question Answer Notes Level of Education: High School Druze: Question Answer Notes Druze 13 Jain Alcohol Screening: Question Answer Notes Did you have a drink containing alcohol in the past year? No Points 0 Interpretation Negative BMI Care Goal Follow-Up Question Answer Notes Above Normal BMI Follow-Up Giving encouragement to exercise Tobacco Use: Question Answer Notes Are you a: never smoker never smoker REASON FOR REFERRAL No Information VITAL SIGNS Weight 192.4 lbs Sep, Weight-kg 87.27 kg Sep, Height 64.5 in Sep, BMI 32.51 kg/m2 Sep, Blood pressure systolic 122 mm Hg Sep, Blood pressure diastolic 78 mm Hg Sep, MEDICATIONS Medication SIG (Take, Route, Frequency, Duration) Notes Start Da te End Date Status PreserVision AREDS - as directed Orally Not-Taking Omeprazole 40 MG 1 capsule Orally Once a day Not-Taking Creon 21017-92377 UNIT as directed Orally three times daily Not-Taking Multivitamin Adult - Orally Not- Taking Calcium & Magnesium Carbonates 311-232 MG plus d Orally twice daily Not-Taking Citracal +D3 250-107-500 MG-MG-UNIT Orally Not-Taking Oxybutynin Chloride ER 5 MG 1 tablet Orally Once a day for 30 da y(s) Sep, Not-Taking Collagen 500 MG as directed Orally N ot-Taking Aspir-Low 81 MG 1 tablet Orally every other day Not-Taking Vitamin C 500 MG 1 tablet Orally twice a day Not-Taking Biotin Maximum Strength 37468 MCG 1 tablet Orally twice daily Not-Taking Culturelle - as directed Orally Not- Taking CoQ-10 100 MG 1 capsule with a meal Orally Once a day Not-Taking Qunol Ultra CoQ10 100-150 MG-UNIT Orally Not-Taking Fish Oil 1000 MG 1 capsule Orally Daily Not-Taking Valium 5 MG 1 tablet PRIOR to MRI biopsy AFTER you sign consent Orally once for 1 day Not-Taking May Have tumeric/curcumin daily N ot-Taking Vitamin B12 1000 MCG 1 tablet Orally Once a day Not-Taking Vitamin D3 1000 UNIT 1 tablet Orally twice a day Not-Taking PROCEDURES No Information RESULTS No Results REASON FOR VISIT 6WK POST OP MEDICAL (GENERAL) HISTORY Type Description [...] Clinical Notes Sep, Cystocele (ICD-10 - N81.10) Sep, Aftercare following surgery of the genitourinary system (ICD-10 - Z48.816) PLAN OF TREATMENT Next Appt Details Provider Name:Julián Skinner, 2020-10-27 08:00:00 AM, [address] [place] [address], [phone], Provider Name:Jazmín Samaniego, 20-11-25 09:00:00 AM, [address] [place] [address], [id number], Insurance Providers Payer Name Payer Address Payer Phone Insured Name Patient Relati onship to Insured Coverage Start Date Coverage End Date MEDICARE BLUE O [address] [id number] [place] self
--- OUTSIDE RECORDS SUMMARY | 2020-10-14 11:07 | CCD ---
Author Author [facility] Organization [facility] Address Unknown Phone Unavailable Care Team Providers Care Smocker Name Role Phone Jazmín Samaniego Unavailable PROBLEMS Type Condition ICD9-CM Code [id number] Code Onset Dates Condition S tatus SNOMED Code Notes Problem Fatigue R53.83 Active 81890615 Problem Bronchitis J40 Active 83528071 Problem Chest pressure R07.89 Active 67565126 Problem Cough R05 Active 58676502 Problem Midline cystocele N81.11 Active 857875930 Problem Stress incontinence N39.3 Active 96388304 Problem Malignant neoplasm of unspecified site of right female breast C50.911 Active 892924137 Problem Pelvic organ prolapse quantification stage 4 cystocele N81.10 Active 455906072 Problem Night sweats R61 Active 88736679 Problem Incontinence in female N39.3 Active 41287641 Problem Cellulitis, toe L03.039 Active 86568844 Problem Malignant neoplasm of right female breast, unspecified estrogen receptor status, unspecified site of breast C50.911 Active 3 19263580 Problem Malignant neoplasm of upper-outer quadrant of ri ght female breast C50.411 Active 167387290 Problem Cardiomegaly I51.7 Active 5633170 Problem Encounter for fitting and adjustment of pessary Z4 6.89 Active 593114175 ALLERGIES Allergen (clinical drug ingredient) Drug/Non Drug Allergy do cumented on EMR Reaction Allergy Type Onset Date Status Tetanus Immune Globulin Hives Drug Allergy Active many fresh fruits, fresh vegetables, tree nuts Anaphylaxis Non Drug Allergy Active tramadol Tramadol HCl(NDC Code:[address]-73) heaviness i n chest, red face Drug Allergy Active morphine Morphine Sulfate(NDC Code:[address]-47) Nausea/ Vomiting/hives Drug Allergy Active ENCOUNTERS from 1955 to 2020-08-04 Encounter Location Date Provider Diagnosis [facility] Breast Care [facility] [place] [address] 23 May, 2020 Jazmín Dombrowska Hematoma of right breast N64.89 ; Malign ant neoplasm of unspecified site of right female breast C50.911 ; Estrogen receptor positive status [ER+] Z17.0 ; Axillary adenopathy R59.0 ; Genetic testing Z13.79 and Surgical aftercare, neoplasm Z48.3 IMMUNIZATIONS Vaccine Route Administration Date Status Influenza (6mo & up) Fluzone Unknown Jun 02, 2015 Adm inistered SOCIAL HISTORY Tobacco Use: Social History Observation Description Date Details (start date - stop date) Never Smoker Sex Assigned At : Social History Observation Description Sex Assigned At Unknown Education: Question Answer Notes Level of Education: High School Yarsanism: Question Answer Notes Yarsanism 13 Scientology Alcohol Screening: Question Answer Notes Did you have a drink containing alcohol in the past year? No Points 0 Interpretation Negative BMI Care Goal Follow-Up Question Answer Notes Above Normal BMI Follow-Up Giving encouragement to exercise Tobacco Use: Question Answer Notes Are you a: never smoker never smoker REASON FOR REFERRAL No Information VITAL SIGNS No information MEDICATIONS Medication SIG (Take, Route, Frequency, Duration) Notes Start Da te End Date Status Vitamin B12 1000 MCG 1 tablet Orally Once a day Active Aspir-Low 81 MG 1 tablet Orally every other day Not-Taking Fish Oil 1000 MG 1 capsule Orally Daily Not-Taking Qunol Ultra CoQ10 100-150 MG-UNIT Orally Not-Taking Vitamin C 500 MG 1 tablet Orally twice a day Not-Taking Valium 5 MG 1 tablet PRIOR to MRI biopsy AFTER you sign consent Orally once for 1 day Not-Taking CoQ-10 100 MG 1 capsule with a meal Orally Once a day Not-Taking Multivitamin Adult - Orally Acti ve Biotin Maximum Strength 01533 MCG 1 tablet Orally twice daily Active PreserVision AREDS - as directed Orally Active Creon 10513-66934 UNIT as directed Orally three times daily Active Vitamin D3 1000 UNIT 1 tablet Orally twice a day Active Calcium & Magnesium Carbonates 311-232 MG plus d Orally twice daily Not-Taking Omeprazole 40 MG 1 capsule Orally Once a day Not-Taking Collagen 500 MG as directed Orally A ctive Citracal +D3 250-107-500 MG-MG-UNIT Orally Active Culturelle - as directed Orally Not- Taking May Have tumeric/curcumin daily A ctive PROCEDURES No Information RESULTS No Results REASON FOR VISIT No Information MEDICAL (GENERAL) HISTORY Type Description Date Medical [...] right breast Surgical History lymph node resection Goals Section No Information Health Concerns No Information MEDICAL EQUIPMENT No Information MENTAL STATUS No Information FUNCTIONAL STATUS No Information ASSESSMENTS Encounter Date Diagnosis Assessment Notes Treatment Notes Treatm ent Clinical Notes May, Hematoma of right breast (ICD-10 - N64.89) RIGHT BREAST HEMATOMA Contained right breast superior hematoma with ecchymosis. No need to return to OR at this time Continue GAYLE wrap till 05/30 Pain control, may need more narcotics RX ICE to the site on/off TYLENOL scheduled I will see patient back on Saturday for re-evaluation. May, Malignant neoplasm of unspec ified site of right female breast (ICD- 10 - C50.911) RIGHT BREAST CANCER IDC ER 67-100% DC 11-33% HER2 NEGATIVE GRADE 1 cT1a-c (4 mm on US, 1.5 cm by palpation) cN0(bx negative) cM0 STAGE 1-2 s/p R lumpectomy with R SLNBX 05/24/20 PLAN: awaiting pathology monitor hematoma pain control May, Estrogen receptor positive status [ER+] (ICD-10 - Z17.0) May, Axillary adenopathy (ICD-10 - R59.0) Ultrasound-guided biopsy of the right axillary lymph node was done by radiology. Pathology came back benign. There were no suspicious axillary lymph nodes seen on MRI of the breast either. May, Genetic testing (ICD-10 - Z13.79) Genetic testing results were discussed today with the patient. I informed her that she does not have any clinically significant mutation. 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 I provided patient with a formal copy of her genetic testing. May, Surgical aftercare, neoplasm (ICD-10 - Z48.3) PLAN OF TREATMENT Treatment Notes Assessment Notes Clinical Notes Hematoma of right breast RIGHT BREAST HEMATOMAContain ed right breast superior hematoma with ecchymosis. No need to return to OR at this timeContinue GAYLE wrap till 05/30Pain control, may need more narcotics RXICE to the site on/offTYLENOL scheduledI will see patient back on Saturday for re-evaluation. Malignant neoplasm of unspecified site of right female breast RIGHT BREAST CANCERIDC ER 67-100% DC 11-33% HER2 NEGATIVE GRADE 7lS0x-u (4 mm on US, 1.5 cm by palpation) cN0(bx negative) cM0 STAGE 1-2s/p R lumpectomy with R SLNBX 05/24/20PLAN:awaiting pathologymonitor hematomapain control Axillary adenopathy Ultrasound-guided biopsy of the right axillary lymph node was done by radiology. Pathology came back benign. There were no suspicious axillary lymph nodes seen on MRI of the breast either. Genetic testing Genetic testing results were discussed today with the patient. I informed her that she does not have any clinically significant mutation. 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 I provided patient with a formal copy of her genetic testing. Next Appt Details Provider Name:Julián Skinner, 2020-08-12 08:30:00 AM, [address] [place], [address], Provider Name:Julián Skinner, 2020-09-06 08:00:00 AM, [address] [place], [address], Provider Name:Julián Skinner 2020-09-23 08:00:00 AM, [address] [place], [address], Provider Name:Jazmín Samaniego, 20 20-11-25 09:00:00 AM, [address] [place], [address], Insurance Providers Payer Name Payer Address Payer Phone Insured Name Patient Relati onship to Insured Coverage Start Date Coverage End Date MEDICARE BLUE O [address] [place] [address] JOHNSON HUGHES self
--- OUTSIDE RECORDS SUMMARY | 2020-10-14 11:07 | CCD ---
Author Author [facility] Organization [facility] Address Unknown Phone Unavailable Care Team Providers Care Web Applications Developer Name Role Phone Jazmín Samaniego Unavailable PROBLEMS Type Condition ICD9-CM Code [id number] Code Onset Dates Condition S tatus SNOMED Code Notes Problem Fatigue R53.83 Active 18340233 Problem Bronchitis J40 Active 37269263 Problem Chest pressure R07.89 Active 70843725 Problem Cough R05 Active 72268595 Problem Midline cystocele N81.11 Active 081527423 Problem Stress incontinence N39.3 Active 92171502 Problem Malignant neoplasm of unspecified site of right female breast C50.911 Active 439927911 Problem Pelvic organ prolapse quantification stage 4 cystocele N81.10 Active 256098760 Problem Night sweats R61 Active 50771871 Problem Incontinence in female N39.3 Active 41816805 Problem Cellulitis, toe L03.039 Active 41700829 Problem Malignant neoplasm of right female breast, unspecified estrogen receptor status, unspecified site of breast C50.911 Active 3 17610170 Problem Malignant neoplasm of upper-outer quadrant of ri ght female breast C50.411 Active 780518123 Problem Cardiomegaly I51.7 Active 4773470 Problem Encounter for fitting and adjustment of pessary Z4 6.89 Active 186921254 ALLERGIES Allergen (clinical drug ingredient) Drug/Non Drug Allergy do cumented on EMR Reaction Allergy Type Onset Date Status Tetanus Immune Globulin Hives Drug Allergy Active many fresh fruits, fresh vegetables, tree nuts Anaphylaxis Non Drug Allergy Active tramadol Tramadol HCl(NDC Code:[address]-79) heaviness i n chest, red face Drug Allergy Active morphine Morphine Sulfate(NDC Code:[address]-95) Nausea/ Vomiting/hives Drug Allergy Active ENCOUNTERS from 1955 to 2020-08-04 Encounter Location Date Provider Diagnosis [facility] Breast Care [facility] [place] [address] 28 May, 2020 Jazmín Dombrowska Hematoma of right [...] Answer Notes Level of Education: High School Adventist: Question Answer Notes Adventist 13 Taoist Alcohol Screening: Question Answer Notes Did you [...] - Orally Acti ve Biotin Maximum Strength 64968 MCG 1 tablet Orally twice daily Active PreserVision AREDS - as directed Orally Active Creon 89404-81268 UNIT as directed Orally three times daily [...] Hematoma of right breast (ICD-10 - N64.89) Contained right breast superior hematoma with ecchymosis. No need to return to OR at this time Continue THOMAS wrap until next week. F/u scheduled for next Saturday. Pain control. One refill given last week. TYLENOL scheduled No lifting on right side. No driving May, Malignant neoplasm of unspec ified site of right female breast (ICD- 10 - C50.911) RIGHT BREAST CANCER (10:30 6CFN) IDC GRADE 1 and DCIS GRADE 1 (found in surgery) ER 67-100%, TN 11-33%, HER2 NEGATIVE cT1c-b (1.5cm on palp, 8 mm on MRI) cN0 (R axill Ln bx) cM0 CLINICAL STAGE 1 pT1b (7mm) pN0 cM0 PATHOLOGICAL STAGE 1 s/p Right lumpectomy and R SLNBx 05/24/20 MARGINS negative GENETICS: negative for clinically significant mutations, +VUS HOXB13 ONCOTYPE DX: pending PLAN: 1.Continue THOMAS wrap and pain control. 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 Margins were negative. I also informed the patient that her lymph nodes were negative. No need for additional excision at this time. The pathology report was given to the patient. Oncotype DX was ordered today as patient's tumor meets the criteria. I'll call patient with the results when they become available to me Patient developed post-hematoma which is treated conservatively at this time with Thomas wrap and pain control. I will see patient next week for reevaluation. At this time, I do not want patient to drive and I want her to take schedule Tylenol. I want her to take narcotic pain medication on as needed basis. All questions were answered. Patient agrees with the plan. May, Estrogen receptor positive status [ER+] (ICD-10 [...] Notes Clinical Notes Hematoma of right breast Contained right breast super ior hematoma with ecchymosis. No need to return to OR at this timeContinue THOMAS wrap until next week. F/u scheduled for next Saturday.Pain control. One refill given last week.TY LENOL scheduledNo lifting on right side. No driving Malignant neoplasm of unspecified site of right female breast RIGHT BREAST CANCER (10:30 6CFN)IDC GRADE 1 and DCIS GRADE 1 (found in surgery)ER 67-100%, TN 11-33%, HER2 [id number] (1.5cm on palp, 8 mm on MRI) cN0 (R axill Ln bx) cM0 CLINICAL STAGE 1pT1b (7mm) pN0 cM0 PATHOLOGICAL STAGE 1s/p Right lumpectomy and R SLNBx 05/24/20MARGINS negativeGENETICS: negative for clinically significant mutations, +VUS [id number] DX: pendingPLAN:1.Continue THOMAS wrap and pain control. 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 Margins were negative. I also informed the patient that her lymph nodes were negative. No need for additional excision at this time. The pathology report was given to the patient. Oncotype DX was ordered today as patient's tumor meets the criteria. I'll call patient with the results when they become available to mePatient developed post-hematoma which is treated conservatively at this time with Thomas wrap and pain control. I will see patient next week for reevaluation. At this time, I do not want patient to drive and I want her to take schedule Tylenol. I want her to take narcotic pain medication on as needed basis.All questions were answered. Patient agrees with the plan. Axillary adenopathy Ultrasound-guided biopsy of the right [...] Details Provider Name:Julián Skinner, 2020-08-12 08:30:00 AM, [address] [place] [address], [phone], Provider Name:Julián Skinner, 2020-09-06 08:00:00 AM, [address] [place], [address], Provider Name:Julián Skinner, 2020-09-23 08:00:00 AM, [address] [place] [address], [phone], Provider Name:Jazmín Samaniego, 20-11-25 09:00:00 AM, [address] [place] [address], [address], Insurance Providers Payer Name Payer Address Payer Phone Insured Name Patient Relati onship to Insured Coverage Start Date Coverage End Date MEDICARE BLUE PPO [address] [facility] [place] [id number] JOHNSON HUGHES self
--- OUTSIDE RECORDS SUMMARY | 2020-10-14 11:07 | CCD ---
Author Author [facility] Organization [facility] Address Unknown Phone Unavailable Care Team Providers Care Manager Of Training Name Role Phone Julián Skinner Unavailable PROBLEMS Type Condition ICD9-CM Code QWC48-ED Code Onset Dates Condition S tatus SNOMED Code Notes Problem Fatigue R53.83 Active 94084441 Problem Bronchitis J40 Active 73529833 Problem Chest pressure R07.89 Active 88578113 Problem Cough R05 Active 03740456 Problem Midline cystocele N81.11 Active 227996085 Problem Stress incontinence N39.3 Active 08808211 Problem Malignant neoplasm of unspecified site of right female breast C50.911 Active 717556922 Problem Pelvic organ prolapse quantification stage 4 cystocele N81.10 Active 019942493 Problem Night sweats R61 Active 46834947 Problem Incontinence in female N39.3 Active 82085377 Problem Cellulitis, toe L03.039 Active 49814972 Problem Malignant neoplasm of right female breast, unspecified estrogen receptor status, unspecified site of breast C50.911 Active 3 66965037 Problem Malignant neoplasm of upper-outer quadrant of ri ght female breast C50.411 Active 710047201 Problem Cardiomegaly I51.7 Active 8538420 Problem Encounter for fitting and adjustment of pessary Z4 6.89 Active 830371515 ALLERGIES Allergen (clinical drug ingredient) Drug/Non Drug Allergy do cumented on EMR Reaction Allergy Type Onset Date Status Tetanus Immune Globulin Hives Drug Allergy Active many fresh fruits, fresh vegetables, tree nuts Anaphylaxis Non Drug Allergy Active tramadol Tramadol HCl(NDC Code:[address]-34) heaviness i n chest, red face Drug Allergy Active morphine Morphine Sulfate(NDC Code:[address]-29) Nausea/ Vomiting/hives Drug Allergy Active ENCOUNTERS from 1955 to 2020-08-10 Encounter Location Date Provider Diagnosis [facility] [place] [address] Jul, Julián Skinner Incontinence in fema le N39.3 IMMUNIZATIONS Vaccine Route Administration Date Status Influenza (6mo & up) Fluzone Unknown Jun 02, 2015 Adm inistered SOCIAL HISTORY Tobacco Use: Social History Observation Description Date Details (start date - stop date) Never Smoker Sex Assigned At : Social History Observation Description Sex Assigned At Unknown Education: Question Answer Notes Level of Education: High School Rastafarian: Question Answer Notes Rastafarian 13 Jewish Alcohol Screening: Question Answer Notes Did you have a drink containing alcohol in the past year? No Points 0 Interpretation Negative BMI Care Goal Follow-Up Question Answer Notes Above Normal BMI Follow-Up Giving encouragement to exercise Tobacco Use: Question Answer Notes Are you a: never smoker never smoker REASON FOR REFERRAL No Information VITAL SIGNS Weight 189 lbs Jul, Weight-kg 85.73 kg Jul, Height 64.5 in Jul, BMI 31.94 kg/m2 Jul, Blood pressure systolic 118 mm Hg Jul, Blood pressure diastolic 90 mm Hg Jul, MEDICATIONS Medication SIG (Take, Route, Frequency, Duration) [...] - Orally Acti ve Biotin Maximum Strength 74060 MCG 1 tablet Orally twice daily Active PreserVision AREDS - as directed Orally Active Creon 59403-95537 UNIT as directed Orally three times daily [...] daily A ctive PROCEDURES No Information RESULTS Component Value Reference Range UA URINALYSIS Reviewed date:07/19/2020 16:01:59 Interpretation: Performing Lab:[facility] [address] [facility] [address] [address] , ,[place] [address] URINE CULTURE Reviewed date:07/19/2020 16:02:03 Interpretation: Performing Lab:[facility] [address] [facility] [address] [address] , ,[place] [address] REASON FOR VISIT CYSTOMETRICS & PRE OP SURG 08/10 MEDICAL (GENERAL) HISTORY Type Description Date Medical [...] History colonoscopy 2010 2016 Surgical History gallbladder 2016 Surgical History gastric bypass 2011 Surgical History Right knee- arthroscopy 2017 Surgical History lumpectomy, right breast Surgical History lymph node resection Goals Section No Information Health Concerns No Information MEDICAL EQUIPMENT No Information MENTAL STATUS No Information FUNCTIONAL STATUS No Information ASSESSMENTS Encounter Date Diagnosis Assessment Notes Treatment Notes Treatm ent Clinical Notes Jul, Incontinence in female (ICD-10 - N39.3) PLAN OF TREATMENT Next Appt Details Provider Name:Julián Skinner 2020-08-12 08:30:00 AM, [address] [place] [address], [phone], Provider Name:Julián Skinner 2020-09-06 08:00:00 AM, [address] [place] [address], [phone], Provider Name:Julián Skinner 2020-09-23 08:00:00 AM, [address] [place] [address], [phone], Provider Name:Jazmín Samaniego, 20-11-25 09:00:00 AM, [address] [place] [address], [address], Insurance Providers Payer Name Payer Address Payer Phone Insured Name Patient Relati onship to Insured Coverage Start Date Coverage End Date MEDICARE BLUE O [address] [address] JOHNSON HUGHES self
--- OUTSIDE RECORDS SUMMARY | 2020-10-14 11:07 | CCD ---
Author Author [facility] Organization [facility] Address Unknown Phone Unavailable Care Team Providers Care Application Consultant Name Role Phone Jazmín Samaniego Unavailable PROBLEMS Type Condition ICD9-CM Code MNS36-LT Code Onset Dates Condition S tatus SNOMED Code Notes Problem Fatigue R53.83 Active 86343864 Problem Bronchitis J40 Active 31686381 Problem Chest pressure R07.89 Active 41836864 Problem Cough R05 Active 49491765 Problem Midline cystocele N81.11 Active 137256313 Problem Stress incontinence N39.3 Active 18858614 Problem Malignant neoplasm of unspecified site of right female breast C50.911 Active 273422839 Problem Pelvic organ prolapse quantification stage 4 cystocele N81.10 Active 932102052 Problem Night sweats R61 Active 71989615 Problem Incontinence in female N39.3 Active 68623039 Problem Cellulitis, toe L03.039 Active 42194128 Problem Malignant neoplasm of right female breast, unspecified estrogen receptor status, unspecified site of breast C50.911 Active 3 66547757 Problem Malignant neoplasm of upper-outer quadrant of ri ght female breast C50.411 Active 579186734 Problem Cardiomegaly I51.7 Active 1183026 Problem Encounter for fitting and adjustment of pessary Z4 6.89 Active 599075048 ALLERGIES Allergen (clinical drug ingredient) Drug/Non Drug Allergy do cumented on EMR Reaction Allergy Type Onset Date Status Tetanus Immune Globulin Hives Drug Allergy Active many fresh fruits, fresh vegetables, tree nuts Anaphylaxis Non Drug Allergy Active tramadol Tramadol HCl(NDC Code:[address]-26) heaviness i n chest, red face Drug Allergy Active morphine Morphine Sulfate(NDC Code:[address]-31) Nausea/ Vomiting/hives Drug Allergy Active ENCOUNTERS from 1955 to 2020-08-12 Encounter Location Date Provider Diagnosis [facility] Breast Care [address] [place] [address] Apr, Jazmín Samaniego IMMUNIZATIONS Vaccine Route Administration Date Status Influenza (6mo & up) Fluzone Unknown Jun 02, 2015 Adm inistered SOCIAL HISTORY Tobacco Use: Social History Observation Description Date Details (start date - stop date) Never Smoker Sex Assigned At : Social History Observation Description Sex Assigned At Unknown Education: Question Answer Notes Level of Education: High School Episcopalian: Question Answer Notes Episcopalian 13 Restorationism Alcohol Screening: Question Answer Notes Did you [...] - Orally Acti ve Biotin Maximum Strength 77654 MCG 1 tablet Orally twice daily Active PreserVision AREDS - as directed Orally Active Creon 78227-01644 UNIT as directed Orally three times daily [...] Information RESULTS No Results REASON FOR VISIT now able to [facility] MEDICAL (GENERAL) HISTORY Type Description Date Medical History seasonal allergies Medical History back pain Medical History rotator cuff tear/2011--right Medical History right knee pain/OA Medical History [...] bypass 2011 Surgical History Right knee- arthroscopy 2018 Surgical History lumpectomy, right breast Surgical History lymph node resection Goals Section No Information Health Concerns No Information MEDICAL EQUIPMENT No Information MENTAL STATUS No Information FUNCTIONAL STATUS No Information ASSESSMENTS No Information PLAN OF TREATMENT Next Appt Details Provider Name:Julián Skinner, 2020-09-06 08:00:00 AM, [address] [place] [address], [phone], Provider Name:Julián Skinner, 2020-09-23 08:00:00 AM, [address] [place] [address], [phone], Provider Name:Jazmín Samaniego, 20-11-25 09:00:00 AM, [address] [place] [address], [address], Insurance Providers Payer Name Payer Address Payer Phone Insured Name Patient Relati onship to Insured Coverage Start Date Coverage End Date MEDICARE BLUE O [address] [place] [address] JOHNSON HUGHES self
--- OUTSIDE RECORDS SUMMARY | 2020-10-14 11:07 | CCD ---
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 Name Role Phone Jazmín Samaniego Unavailable PROBLEMS Type Condition ICD9-CM Code JLB36-NO Code Onset Dates Condition S tatus SNOMED Code Notes Problem Fatigue R53.83 Active 54493160 Problem Bronchitis J40 Active 05746218 Problem Chest pressure R07.89 Active 43051677 Problem Cough R05 Active 04773909 Problem Midline cystocele N81.11 Active 543879343 Problem Stress incontinence N39.3 Active 01173054 Problem Malignant neoplasm of unspecified site of right female breast C50.911 Active 364181089 Problem Pelvic organ prolapse quantification stage 4 cystocele N81.10 Active 696084963 Problem Night sweats R61 Active 50599245 Problem Incontinence in female N39.3 Active 64216397 Problem Cellulitis, toe L03.039 Active 11299204 Problem Malignant neoplasm of right female breast, unspecified estrogen receptor status, unspecified site of breast C50.911 Active 3 67216461 Problem Malignant neoplasm of upper-outer quadrant of ri ght female breast C50.411 Active 961046981 Problem Cardiomegaly I51.7 Active 5059350 Problem Encounter for fitting and adjustment of pessary Z4 6.89 Active 781441445 ALLERGIES Allergen (clinical drug ingredient) Drug/Non Drug Allergy do cumented on EMR Reaction Allergy Type Onset Date Status Tetanus Immune Globulin Hives Drug Allergy Active many fresh fruits, fresh vegetables, tree nuts Anaphylaxis Non Drug Allergy Active tramadol Tramadol HCl(NDC Code:[address]-66) heaviness i n chest, red face Drug Allergy Active morphine Morphine Sulfate(NDC Code:[address]-81) Nausea/ Vomiting/hives Drug Allergy Active ENCOUNTERS from 1955 to 2020-08-12 Encounter Location Date Provider Diagnosis [facility] Breast Care [facility] [place] [address] Apr, Jazmín Samaniego IMMUNIZATIONS Vaccine Route Administration Date Status Influenza (6mo & up) Fluzone Unknown Jun 02, 2015 Adm inistered SOCIAL HISTORY Tobacco Use: Social History Observation Description Date Details (start date - stop date) Never Smoker Sex Assigned At : Social History Observation Description Sex Assigned At Unknown Education: Question Answer Notes Level of Education: High School Sikh: Question Answer Notes Sikh 13 [employer] Alcohol Screening: Question Answer Notes Did you [...] - Orally Acti ve Biotin Maximum Strength 87113 MCG 1 tablet Orally twice daily Active PreserVision AREDS - as directed Orally Active Creon 27761-36369 UNIT as directed Orally three times daily [...] Information RESULTS No Results REASON FOR VISIT unable to do MRI bx at [facility], referral to [facility]) HISTORY Type Description Date Medical History [...] Details Provider Name:Julián Skinner, 2020-09-06 08:00:00 AM, [address] [place] [address], [phone], Provider Name:Julián Skinner, 2020-09-23 08:00:00 AM, [address] [place] [address], [phone], Provider Name:Jazmín Samaniego, 20-11-25 09:00:00 AM, [address] [place] [address], [id number], Insurance Providers Payer Name Payer Address Payer Phone Insured Name Patient Relati onship to Insured Coverage Start Date Coverage End Date MEDICARE BLUE PPO [address] [id number] JOHNSON HUGHES self
--- OUTSIDE RECORDS SUMMARY | 2020-10-14 11:07 | CCD ---
Continuity of Care Document (CCD) Created on: 08/09/2020 Marguerite Dooley External Reference #: [id number] : 1955 Sex: Female Author Author Marguerite CHIANG P.A. Organization Unknown Address [address] [place] [address] Phone [phone] Problems Description No Active Problems Social History [...] by mouth every day Unknown Biotin Maximum 31778mjy Tablets Dispers Unknown Turmeric Curcumin 500mg Capsules Unknown Prilosec 40mg Capsules DR 1 by mouth every day Unknown Culturelle Capsules Unknown Xarelto 20mg Tablets 1 by mouth every day Unknown Calcium 600 600mg Tablets 1 by mouth twice a day Unknown Preservision Areds Tablets 2 tabs by mouth twice a day Unknown Creon [address]-71365Ybun Caps DR Part Unknown Vitamin C 500mg Chewtabs every other day Unknown Immunizations Description No Information Available Vital Signs Date Vital Result Comment 12/03/2019 12:58pm Body Temperature 98.0 F Height 63.5 inches 5'3.50" Weight 200.00 lb BMI (Body Mass Index) 34.9 kg/m2 05/26/2019 8:38am Body Temperature 97.7 F Height 63.5 inches 5'3.50" Weight 197.50 lb BMI (Body Mass Index) 34.4 kg/m2 Results Description No Information Available Procedures Date Code Description Status 08/05/2020 23201 X-Ray Knee Complete W/Obliques & Tunnel And/Or Standing Views Completed 07/25/2020 36325 X-Ray Ankle Complete Completed 07/08/2020 68454 X-Ray Ankle Complete Completed 07/08/2020 26138 Apply Cast Short Leg Completed 03/10/2020 Inject/Drain Joint/Bursa Major C ompleted 03/10/2020 Injection Tendon Origin/Insertio n Completed Medical Devices Description No Information Available Encounters Type Date Location Provider Dx Diagnosis Office Visit 08/05/2020 8:45a Velasquez Shaver MD M17.12 Unilateral primary osteoarthritis, left knee Office Visit 07/25/2020 3:30p [place] [facility] M25.572 Pain in left ankle [...] unspecified ligame nt of left ankle, sequela Office Visit 03/10/2020 2:15p [place] [facility] [facility] M17.12 Unilateral primary osteoarthritis, left knee M77.11 Lateral epicondylitis, right elbow Assessments Date Code Description Provider 08/05/2020 M17.12 Unilateral primary osteoarthriti s, left knee Conner Shaver MD 07/25/2020 M25.572 Pain in left ankle and joints of left foot Oneil WaltonA. 07/25/2020 M19.072 Primary osteoarthritis, left ank le [...] f left ankle, sequela Jasvir Chiang, P.A. 03/14/2020 M17.12 Unilateral primary osteoarthriti s, left knee Conner Shaver MD 03/14/2020 M77.11 Lateral epicondylitis, right elb ow Conner Shaver MD 03/14/2020 M19.071 Primary osteoarthritis, right an kle and foot Conner Shaver MD 03/10/2020 M17.12 Unilateral primary osteoarthriti s, left knee Jasvir Chiang, P.A. 03/10/2020 M77.11 Lateral epicondylitis, right elb ow Jasvir Chiang, P.A. Plan of Treatment 08/05/2020 - Conner Shaver MD* M17.12 Unilateral primary osteoarthritis, left knee* New Orders:* Surgery, Ordered: 08/05/20 * Follow up:* post op Functional Status Description No Information Available Mental Status Description No Information Available Referrals Refer to Reason for Referral Status Appt Date Jasvir Chiang PA DME PER B/S WEB NO AUTH REQU IRED FOR CAST BOOT (L3260) AND COVERED AT 80% TO ALONDRA Antoine [address] [facility] [address] [place] [address] [phone]
--- OUTSIDE RECORDS SUMMARY | 2020-10-14 11:07 | CCD | Continuity of Care Document ---
Author Author Marguerite FERRIS MD Organization Unknown Address [address] [place] [address], [address] [address] Phone [phone] Problems Description No Active Problems Social History [...] by mouth every day Unknown Biotin Maximum 45816fzf Tablets Dispers Unknown Turmeric Curcumin 500mg Capsules Unknown Prilosec 40mg Capsules DR 1 by mouth every day Unknown Culturelle Capsules Unknown Xarelto 20mg Tablets 1 by mouth every day Unknown Calcium 600 600mg Tablets 1 by mouth twice a day Unknown Preservision Areds Tablets 2 tabs by mouth twice a day Unknown Creon 04756-20020Dopv Caps DR Part Unknown Vitamin C 500mg [...] Available Procedures Date Code Description Status 08/05/2020 77296 X-Ray Knee Complete W/Obliques & Tunnel And/Or Standing Views Completed 07/25/2020 71408 X-Ray Ankle Complete Completed 07/08/2020 69314 X-Ray Ankle Complete Completed 07/08/2020 52206 Apply Cast Short Leg Completed 03/10/2020 Inject/Drain Joint/Bursa Major C ompleted 03/10/2020 Injection Tendon Origin/Insertio n Completed Medical Devices Description No Information Available Encounters Type Date Location Provider Dx Diagnosis Office Visit 08/05/2020 8:45a Velasquez Ferris MD M17.12 Unilateral primary osteoarthritis, left knee Office Visit 07/25/2020 3:30p [place] M25.572 Pain in left ankle [...] left ankle, sequela Office Visit 03/10/2020 2:15p [place] M17.12 Unilateral primary osteoarthritis, left [...] osteoarthriti s, left knee Conner Ferris MD 03/14/2020 M77.11 Lateral epicondylitis, right elb ow Conner Ferris MD 03/14/2020 M19.071 Primary osteoarthritis, right an kle and foot Conner Ferris MD 03/10/2020 M17.12 Unilateral primary osteoarthriti s, left knee Jasvir Chiang, P.A. 03/10/2020 M77.11 Lateral epicondylitis, right elb ow Jasvir Chiang, P.A. Plan of Treatment 08/05/2020 - Conner Ferris MD* M17.12 Unilateral primary osteoarthritis, left knee* New Orders:* Surgery, Ordered: 08/05/20 * Follow up:* post op Functional Status Description No Information Available Mental Status Description No Information Available Referrals Refer to Reason for Referral Status Appt Date Jasvir Chiang PA DME PER B/S WEB NO AUTH REQU IRED FOR CAST BOOT ([id number]) AND COVERED AT 80% TO ALONDRA Antoine [address] [facility] [address] [place] [id number] [phone]
--- OUTSIDE RECORDS SUMMARY | 2020-10-14 11:21 | CCD ---
Author Author [facility] Organization [facility] Address Unknown Phone Unavailable Care Team Providers Care Call Center Operations Manager Name Role Phone FACUNDO QUINONEZLY Unavailable Unavailable Ramirez, W Je RPA-C Unavailable Unavailable Ramirez, W Je RPA-C Unavailable Unavailable Ramirez, W Je RPA-C Unavailable Unavailable Ramirez, W Je RPA-C Unavailable Unavailable Ramirez, W Je RPA-C Unavailable Unavailable Ramirez, W Je RPA-C Unavailable Unavailable Ramirez, W Je RPA-C Unavailable Unavailable Ramirez, W Je RPA-C Unavailable Unavailable Ramirez, W Je RPA-C Unavailable Unavailable Ramirez, W Je RPA-C Unavailable Unavailable Ramirez, W Je RPA-C Unavailable Unavailable Ramirez, W Je RPA-C Unavailable Unavailable Ramirez, W Je RPA-C Unavailable Unavailable Ramirez, W Je RPA-C Unavailable Unavailable Ramirez, W Je RPA-C Unavailable Unavailable Ramirez, W Je RPA-C Unavailable Unavailable Fish, J Blayne Unavailable Unavailable Fish, J Blayne Unavailable Unavailable Fish, J Blayne Unavailable Unavailable Fish, J Blayne Unavailable Unavailable Fish, J Blayne Unavailable Unavailable Fish, J Blayne Unavailable Unavailable Fish, J Blayne Unavailable Unavailable Fish, J Blayne Unavailable Unavailable Fish, J Blayne Unavailable Unavailable Fish, J Blayne Unavailable Unavailable Fish, J Blayne Unavailable Unavailable Fish, J Blayne Unavailable Unavailable Fish, J Blayne Unavailable Unavailable Fish, J Blayne Unavailable Unavailable Fish, J Blayne Unavailable Unavailable Fish, J Blayne Unavailable Unavailable Fish, J Blayne Unavailable Unavailable Fish, J Blayne Unavailable Unavailable Fish, J Blayne Unavailable Unavailable Fish, J Blayne Unavailable Unavailable Fish, J Blayne Unavailable Unavailable Fish, J Blayne Unavailable Unavailable Fish, J Blayne Unavailable Unavailable Fish, J Blayne Unavailable Unavailable Fish, J Blayne Unavailable Unavailable Fish, J Blayne Unavailable Unavailable Fish, J Blayne Unavailable Unavailable Fish, J Blayne Unavailable Unavailable Fish, J Blayne Unavailable Unavailable Fish, J Blayne Unavailable Unavailable Fish, J Blayne Unavailable Unavailable Fish, J Blayne Unavailable Unavailable Fish, J Blayne Unavailable Unavailable Fish, J Blayne Unavailable Unavailable Fish, J Blayne Unavailable Unavailable Fish, J Blayne Unavailable Unavailable Fish, J Blayne Unavailable Unavailable Fish, J Blayne Unavailable Unavailable Fish, J Blayne Unavailable Unavailable Fish, J Blayne Unavailable Unavailable Fish, J Blayne Unavailable Unavailable Fish, J Blayne Unavailable Unavailable Fish, J Blayne Unavailable Unavailable Fish, J Blayne Unavailable Unavailable Fish, J Blayne Unavailable Unavailable Fish, J Blayne Unavailable Unavailable Fish, J Blayne Unavailable Unavailable Fish, J Blayne Unavailable Unavailable Fish, J Blayne Unavailable Unavailable Fish, J Blayne Unavailable Unavailable Fish, J Blayne Unavailable Unavailable Fish, J Blayne Unavailable Unavailable Fish, J Blayne Unavailable Unavailable Fish, J Blayne Unavailable Unavailable Fish, J Blayne Unavailable Unavailable Fish, J Blayne Unavailable Unavailable Fish, J Blayne Unavailable Unavailable Fish, J Blayne Unavailable Unavailable Fish, J Blayne Unavailable Unavailable Fish, J Blayne Unavailable Unavailable Fish, J Blayne Unavailable Unavailable Fish, J Blayne Unavailable Unavailable Fish, J Blayne Unavailable Unavailable Fish, J Blayne Unavailable Unavailable Fish, J Blayne Unavailable Unavailable Fish, J Blayne Unavailable Unavailable Fish, J Blayne Unavailable Unavailable Fish, J Blayne Unavailable Unavailable Fish, J Blayne Unavailable Unavailable Fish, J Blayne Unavailable Unavailable Fish, J Blayne Unavailable Unavailable Fish, J Blayne Unavailable Unavailable Fish, J Blayne Unavailable Unavailable Fish, J Blayne Unavailable Unavailable Fish, J Blayne Unavailable Unavailable Fish, J Blayne Unavailable Unavailable Fish, J Blayne Unavailable Unavailable Fish, J Blayne Unavailable Unavailable Fish, J Blayne Unavailable Unavailable Fish, J Blayne Unavailable Unavailable Fish, J Blayne Unavailable Unavailable Fish, J Blayne Unavailable Unavailable Fish, J Blayne Unavailable Unavailable Fish, J Blayne Unavailable Unavailable Fish, J Blayne Unavailable Unavailable FATUMA, LIBERTAD PA Unavailable Unavailable FATUMA, LIBERTAD PA Unavailable Unavailable FATUMA, LIBERTAD PA Unavailable Unavailable FATUMA, LIBERTAD PA Unavailable Unavailable FATUMA, LIBERTAD PA Unavailable Unavailable FATUMA, LIBERTAD PA Unavailable Unavailable FATUMA, LIBERTAD PA Unavailable Unavailable FATUMA, LIBERTAD PA Unavailable Unavailable FATUMA, LIBERTAD PA Unavailable Unavailable FATUMA, LIBERTAD PA Unavailable Unavailable FATUMA, LIBERTAD PA Unavailable Unavailable FATUMA, LIBERTAD PA Unavailable Unavailable FATUMA, LIBERTAD PA Unavailable Unavailable FATUMA, LIBERTAD PA Unavailable Unavailable FATUMA, LIBERTAD PA Unavailable Unavailable MCELHERAN, IRINA PA Unavailable Unavailable MCELHERAN, IRINA PA Unavailable Unavailable MCELHERAN, IRINA PA Unavailable Unavailable MCELHERAN, IRINA PA Unavailable Unavailable MCELHERAN, IRINA PA Unavailable Unavailable MCELHERAN, IRINA PA Unavailable Unavailable MCELHERAN, IRINA PA Unavailable Unavailable MCELHERAN, IRINA PA Unavailable Unavailable MCELHERAN, IRINA PA Unavailable Unavailable MCELHERAN, IRINA PA Unavailable Unavailable MCELHERAN, IRINA PA Unavailable Unavailable MCELHERAN, IRINA PA Unavailable Unavailable MCELHERAN, IRINA PA Unavailable Unavailable MCELHERAN, IRINA PA Unavailable Unavailable MCELHERAN, IRINA PA Unavailable Unavailable MCELHERAN, IRINA PA Unavailable Unavailable MCELHERAN, IRINA PA Unavailable Unavailable MCELHERAN, IRINA PA Unavailable Unavailable MCELHERAN, IRINA PA Unavailable Unavailable MCELHERAN, IRINA PA Unavailable Unavailable MCELHERAN, IRINA PA Unavailable Unavailable MCELHERAN, IRINA PA Unavailable Unavailable MCELHERAN, IRINA PA Unavailable Unavailable MCELHERAN, IRINA PA Unavailable Unavailable MCELHERAN, IRINA PA Unavailable Unavailable MCELHERAN, IRINA PA Unavailable Unavailable MCELHERAN, IRINA PA Unavailable Unavailable MCELHERAN, IRINA PA Unavailable Unavailable MCELHERAN, IRINA PA Unavailable Unavailable MCELHERAN, IRINA PA Unavailable Unavailable MCELHERAN, IRINA PA Unavailable Unavailable MCELHERAN, IRINA PA Unavailable Unavailable MCELHERAN, IRINA PA Unavailable Unavailable MCELHERAN, IRINA PA Unavailable Unavailable MCELHERAN, IRINA PA Unavailable Unavailable MCELHERAN, IRINA PA Unavailable Unavailable MCELHERAN, IRINA PA Unavailable Unavailable MCELHERAN, IRINA PA Unavailable Unavailable MCELHERAN, IRINA PA Unavailable Unavailable MCELHERAN, IRINA PA Unavailable Unavailable MCELHERAN, IRINA PA Unavailable Unavailable MCELHERAN, IRINA PA Unavailable Unavailable MCELHERAN, IRINA PA Unavailable Unavailable MCELHERAN, IRINA PA Unavailable Unavailable MCELHERAN, IRINA PA Unavailable Unavailable MCELHERAN, IRINA PA Unavailable Unavailable MCELHERAN, IRINA PA Unavailable Unavailable MCELHERAN, IRINA PA Unavailable Unavailable MCELHERAN, IRINA PA Unavailable Unavailable MCELHERAN, IRINA PA Unavailable Unavailable MCELHERAN, IRINA PA Unavailable Unavailable MCELHERAN, IRINA PA Unavailable Unavailable MCELHERAN, IRINA PA Unavailable Unavailable MCELHERAN, IRINA PA Unavailable Unavailable MCELHERAN, IRINA PA Unavailable Unavailable MCELHERAN, IRINA PA Unavailable Unavailable Fish, Clifton Prieto MD Unavailable Unavailable Fish, Clifton Prieto MD Unavailable Unavailable Fish, Clifton Prieto MD Unavailable Unavailable Fish, Clifton Prieto MD Unavailable Unavailable Fish, Clifton Prieto MD Unavailable Unavailable Fish, Clifton Prieto MD Unavailable Unavailable Fish, Clifton Prieto MD Unavailable Unavailable Fish, Clifton Prieto MD Unavailable Unavailable Fish, Clifton Prieto MD Unavailable Unavailable Fish, Clifton Prieto MD Unavailable Unavailable Fish, Clifton Prieto MD Unavailable Unavailable Fish, Clifton Prieto MD Unavailable Unavailable Fish, Clifton Prieto MD Unavailable Unavailable Fish, Clifton Prieto MD Unavailable Unavailable Fish, Clifton Prieto MD Unavailable Unavailable Fish, Clifton Prieto MD Unavailable Unavailable Fish, Clifton Prieto MD Unavailable Unavailable Fish, Clifton Prieto MD Unavailable Unavailable Fish, Clifton Prieto MD Unavailable Unavailable Fish, Clifton Prieto MD Unavailable Unavailable Fish, Clifton Prieto MD Unavailable Unavailable Fish, Clifton Prieto MD Unavailable Unavailable Fish, Clifton Prieot MD Unavailable Unavailable Fish, Clifton Prieto MD Unavailable Unavailable Fish, Clifton Prieto MD Unavailable Unavailable Fish, Clifton Prieto MD Unavailable Unavailable Fish, Clifton Prieto MD Unavailable Unavailable Fish, Clifton Prieto MD Unavailable Unavailable Fish, B Conner PERALTA Unavailable Unavailable Fish, B Conner PERALTA Unavailable Unavailable Fish, B Conner PERALTA Unavailable Unavailable Fish, B Conner PERALTA Unavailable Unavailable Fish, B Conner PERALTA Unavailable Unavailable Fish, B Conner PERALTA Unavailable Unavailable Fish, B Conner PERALTA Unavailable Unavailable Fish, B Conner PERALTA Unavailable Unavailable Fish, B Conner PERALTA Unavailable Unavailable Fish, B Conner PERALTA Unavailable Unavailable Fish, B Conner PERALTA Unavailable Unavailable Fish, B Conner PERALTA Unavailable Unavailable Fish, B Conner PERALTA Unavailable Unavailable Fish, B Conner PERALTA Unavailable Unavailable Fish, B Conner PERALTA Unavailable Unavailable Fish, B Conner PERALTA Unavailable Unavailable Fish, B Conner PERALTA Unavailable Unavailable Fish, B Conner PERALTA Unavailable Unavailable Fish, B Conner PERALTA Unavailable Unavailable Fish, B Conner PERALTA Unavailable Unavailable Fish, B Conner PERALTA Unavailable Unavailable Fish, B Conner PERALTA Unavailable Unavailable Fish, B Conner PERALTA Unavailable Unavailable Fish, B Conner PERALTA Unavailable Unavailable Fish, B Conner PERALTA Unavailable Unavailable Snow, M Barratt PA Unavailable Unavailable Snow, M Barratt PA Unavailable Unavailable Snow, M Barratt PA Unavailable Unavailable Snow, M Barratt PA Unavailable Unavailable Snow, M Barratt PA Unavailable Unavailable Snow, M Barratt PA Unavailable Unavailable Snow, M Barratt PA Unavailable Unavailable Snow, M Barratt PA Unavailable Unavailable Snow, M Barratt PA Unavailable Unavailable Snow, M Barratt PA Unavailable Unavailable Snow, M Barratt PA Unavailable Unavailable Snow, M Barratt PA Unavailable Unavailable Snow, M Barratt PA Unavailable Unavailable Snow, M Barratt PA Unavailable Unavailable Snow, M Barratt PA Unavailable Unavailable Snow, M Barratt PA Unavailable Unavailable Snow, M Barratt PA Unavailable Unavailable Snow, M Barratt PA Unavailable Unavailable Snow, M Barratt PA Unavailable Unavailable Snow, M Barratt PA Unavailable Unavailable Snow, M Barratt PA Unavailable Unavailable Snow, M Barratt PA Unavailable Unavailable Snow, M Barratt PA Unavailable Unavailable Snow, M Barratt PA Unavailable Unavailable Snow, M Barratt PA Unavailable Unavailable Snow, M Barratt PA Unavailable Unavailable Snow, M Barratt PA Unavailable Unavailable DOMBROWSKA, K NICHOLAS DO Unavailable Unavailable DOMBROWSKA, K NICHOLAS DO Unavailable Unavailable DOMBROWSKA, K NICHOLAS DO Unavailable Unavailable DOMBROWSKA, K NICHOLAS DO Unavailable Unavailable DOMBROWSKA, K NICHOLAS DO Unavailable Unavailable DOMBROWSKA, K NICHOLAS DO Unavailable Unavailable DOMBROWSKA, K NICHOLAS DO Unavailable Unavailable DOMBROWSKA, K NICHOLAS DO Unavailable Unavailable DOMBROWSKA, K NICHOLAS DO Unavailable Unavailable DOMBROWSKA, K NICHOLAS DO Unavailable Unavailable DOMBROWSKA, K NICHOLAS DO Unavailable Unavailable DOMBROWSKA, K NICHOLAS DO Unavailable Unavailable DOMBROWSKA, K NICHOLAS DO Unavailable Unavailable DOMBROWSKA, K NICHOLAS DO Unavailable Unavailable DOMBROWSKA, K NICHOLAS DO Unavailable Unavailable DOMBROWSKA, K NICHOLAS DO Unavailable Unavailable DOMBROWSKA, K NICHOLAS DO Unavailable Unavailable ILANA, JA SHAKILA PA Unavailable Unavailable ILANA, JA SHAKLIA PA Unavailable Unavailable ILANA, JA SHAKILA PA Unavailable Unavailable ILANA, JA SHAKILA PA Unavailable Unavailable ILANA, JA SHAKILA PA Unavailable Unavailable ILANA, JA SHAKILA PA Unavailable Unavailable ILANA, JA SHAKILA PA Unavailable Unavailable ILANA, JA SHAKILA PA Unavailable Unavailable ILANA, JA SHAKILA PA Unavailable Unavailable ILANA, JA SHAKILA PA Unavailable Unavailable ILANA, AJ SHAKILA PA Unavailable Unavailable ILANA, JA SHAKILA PA Unavailable Unavailable ILANA, JA SHAKILA PA Unavailable Unavailable ILANA, JA SHAKILA PA Unavailable Unavailable ILANA, JA SHAKILA PA Unavailable Unavailable ILANA, JA SHAKILA PA Unavailable Unavailable ILANA, JA SHAKILA PA Unavailable Unavailable ILANA, JA SHAKILA PA Unavailable Unavailable ILANA, JA SHAKILA PA Unavailable Unavailable ILANA, JA SHAKILA PA Unavailable Unavailable ILANA, JA SHAKILA PA Unavailable Unavailable DORIS, E LEAH DO Unavailable Unavailable DORIS, E LEAH DO Unavailable Unavailable DORIS, E LEAH DO Unavailable Unavailable DORIS, E LEAH DO Unavailable Unavailable DORIS, E LEAH DO Unavailable Unavailable DORIS, E LEAH DO Unavailable Unavailable DORIS, E LEAH DO Unavailable Unavailable DORIS, E LEAH DO Unavailable Unavailable DORIS, E LEAH DO Unavailable Unavailable DORIS, E LEAH DO Unavailable Unavailable DORIS, E LEAH DO Unavailable Unavailable DORIS, E LEAH DO Unavailable Unavailable DORIS, E LEAH DO Unavailable Unavailable DORIS, E LEAH DO Unavailable Unavailable DORIS, E LEAH DO Unavailable Unavailable DORIS, E LEAH DO Unavailable Unavailable DORIS, E LEAH DO Unavailable Unavailable DORIS, E LEAH DO Unavailable Unavailable DORIS, E LEAH DO Unavailable Unavailable DORIS, E LEAH DO Unavailable Unavailable DORIS, E LEAH DO Unavailable Unavailable Earlene GARNER MD Unavailable Unavailable Earlene GARNER MD Unavailable Unavailable Earlene GARNER MD Unavailable Unavailable Earlene GARNER MD Unavailable Unavailable Earlene GARNER MD Unavailable Unavailable Earlene GARNER MD Unavailable Unavailable Earlene GARNER MD Unavailable Unavailable Earlene GARNER MD Unavailable Unavailable Earlene GARNER MD Unavailable Unavailable Earlene GARNER MD Unavailable Unavailable Earlene GARNER MD Unavailable Unavailable Earlene GARNER MD Unavailable Unavailable Earlene GARNER MD Unavailable Unavailable Earlene GARNER MD Unavailable Unavailable Earlene GARNER MD Unavailable Unavailable Earlene GARNER MD Unavailable Unavailable Earlene GARNER MD Unavailable Unavailable Earlene GARNER MD Unavailable Unavailable Earlene GARNER MD Unavailable Unavailable Earlene GARNER MD Unavailable Unavailable Earlene GARNER MD Unavailable Unavailable Earlene GARNER MD Unavailable Unavailable Earlene GARNER MD Unavailable Unavailable Earlene GARNER MD Unavailable Unavailable Earlene GARNER MD Unavailable Unavailable Earlene GARNER MD Unavailable Unavailable Earlene GARNER MD Unavailable Unavailable Earlene GARNER MD Unavailable Unavailable aErlene GARNER MD Unavailable Unavailable Earlene GARNER MD Unavailable Unavailable Earlene GARNER MD Unavailable Unavailable Earlene GARNER MD Unavailable Unavailable Earlene GARNER MD Unavailable Unavailable Earlene GARNER MD Unavailable Unavailable Earlene GARNER MD Unavailable Unavailable Earlene GARNER MD Unavailable Unavailable Earlene GARNER MD Unavailable Unavailable Earlene GARNER MD Unavailable Unavailable Earlene GARNER MD Unavailable Unavailable Earlene GARNER MD Unavailable Unavailable Earlene GARNER MD Unavailable Unavailable Earlene GARNER MD Unavailable Unavailable Earlene GARNER MD Unavailable Unavailable Earlene GARNER MD Unavailable Unavailable Earlene GARNER MD Unavailable Unavailable Earlene GARNER MD Unavailable Unavailable Earlene GARNER MD Unavailable Unavailable Earlene GARNER MD Unavailable Unavailable Earlene GARNER MD Unavailable Unavailable Earlene GARNER MD Unavailable Unavailable Earlene GARNER MD Unavailable Unavailable aErlene GARNER MD Unavailable Unavailable Earlene GARNER MD Unavailable Unavailable Earlene GARNER MD Unavailable Unavailable Earlene GARNER MD Unavailable Unavailable Earlene GARNER MD Unavailable Unavailable Earlene GARNER MD Unavailable Unavailable Earlene GARNER MD Unavailable Unavailable Earlene GARNER MD Unavailable Unavailable Earlene GARNER MD Unavailable Unavailable Earlene GARNER MD Unavailable Unavailable Earlene GARNER MD Unavailable Unavailable Earlene GARNER MD Unavailable Unavailable Earlene GARNER MD Unavailable Unavailable Earlene GARNER MD Unavailable Unavailable Earlene GARNER MD Unavailable Unavailable Earlene GARNER MD Unavailable Unavailable Earlene GARNER MD Unavailable Unavailable Earlene GARNER MD Unavailable Unavailable Earlene GARNER MD Unavailable Unavailable Earlene GARNER MD Unavailable Unavailable Earlene GARNER MD Unavailable Unavailable Earlene GARNER MD Unavailable Unavailable Earlene GARNER MD Unavailable Unavailable Earlene GARNER MD Unavailable Unavailable Earlene GARNER MD Unavailable Unavailable Roslyn Jerez MD Unavailable Unavailable Roslyn Jerez MD Unavailable Unavailable Roslyn Jerez MD Unavailable Unavailable Roslyn Jerez MD Unavailable Unavailable Roslyn Jerez MD Unavailable Unavailable Roslyn Jerez MD Unavailable Unavailable Roslyn Jerez MD Unavailable Unavailable Roslyn Jerez MD Unavailable Unavailable Roslyn Jerez MD Unavailable Unavailable Roslyn Jerez MD Unavailable Unavailable Roslyn Jerez MD Unavailable Unavailable Roslyn Jerez MD Unavailable Unavailable Roslyn Jerez MD Unavailable Unavailable Roslyn Jerez MD Unavailable Unavailable Roslyn Jerez MD Unavailable Unavailable Roslyn Jerez MD Unavailable Unavailable Roslyn Jerze MD Unavailable Unavailable Roslyn Jerez MD Unavailable Unavailable Roslyn Jerez MD Unavailable Unavailable Roslyn Jerez MD Unavailable Unavailable Roslyn Jerez MD Unavailable Unavailable Roslyn Jerez MD Unavailable Unavailable Roslyn Jerez MD Unavailable Unavailable Roslyn Jerez MD Unavailable Unavailable Roslyn Jerez MD Unavailable Unavailable Roslyn Jerez MD Unavailable Unavailable Roslyn Jerez MD Unavailable Unavailable Roslyn Jerez MD Unavailable Unavailable Roslyn Jerez MD Unavailable Unavailable Roslyn Jerez MD Unavailable Unavailable Roslyn Jerez MD Unavailable Unavailable Roslyn Jerez MD Unavailable Unavailable Roslyn Jerez MD Unavailable Unavailable Roslyn Jerez MD Unavailable Unavailable Roslyn Jerez MD Unavailable Unavailable Roslyn Jerez MD Unavailable Unavailable Roslyn Jerez MD Unavailable Unavailable SleRoslyn michael MD Unavailable Unavailable SlezkaIrwintech Unavailable Unavailable SlezkaTimjtech Unavailable Unavailable SlezkaIrwintech Unavailable Unavailable SlezkaTimjtech Unavailable Unavailable SlezkaTimjtech Unavailable Unavailable Slezka Vojtech Unavailable Unavailable SlezkaTimjtech Unavailable Unavailable SlezkaTimjtech Unavailable Unavailable Slezka Vojtech Unavailable Unavailable SlezkaTimjtech Unavailable Unavailable SlezkaTimjtech Unavailable Unavailable SlezkaTimjtech Unavailable Unavailable Slezka Vojtech Unavailable Unavailable Slezka Vojtech Unavailable Unavailable SlezkaTimjtech Unavailable Unavailable SlezkaTimjtech Unavailable Unavailable SlezkaTimjtech Unavailable Unavailable SlezkaTimjtech Unavailable Unavailable SlezkaTimjtech Unavailable Unavailable SlezkaTimjtech Unavailable Unavailable MANOHAR (PATYS), Sade ATKINSON MD Unavailable Unavailab le MANOHAR (PATSY), Sade ATKINSON MD Unavailable Unavailab le MANOHAR (PATSY), Sade ATKINSON MD Unavailable Unavailab le MANOHAR (PATSY), Sade ATKINSON MD Unavailable Unavailab le MANOHAR (PATSY), Sade ATKINSON MD Unavailable Unavailab le MANOHAR (PATSY), Sade ATKINSON MD Unavailable Unavailab le MANOHAR (PATSY), Sade ATKINSON MD Unavailable Unavailab le MANOHAR (PATSY), Sade ATKINSON MD Unavailable Unavailab le MANOHAR (PATSY), Sade ATKINSON MD Unavailable Unavailab le MANOHAR (PATSY), Sade ATKINSON MD Unavailable Unavailab le MANOHAR (PATSY), Sade ATKINSON MD Unavailable Unavailab le MANOHAR (PATSY), Sade ATKINSON MD Unavailable Unavailab le MANOHAR (PATSY), Sade ATKINSON MD Unavailable Unavailab le MANOHAR (PATSY), Sade ATKINSON MD Unavailable Unavailab le MANOHAR (PATSY), Sade ATKINSON MD Unavailable Unavailab le MANOHAR (PATSY), Sade ATKINSON MD Unavailable Unavailab le MANOHAR (PATSY), Sade ATKINSON MD Unavailable Unavailab le MANOHAR (PATSY), Sade ATKINSON MD Unavailable Unavailab le MANOHAR (PATSY), Sade ATKINSON MD Unavailable Unavailab le MANOHAR (PATSY), Sade ATKINSON MD Unavailable Unavailab le MANOHAR (PATSY), Sade ATKINSON MD Unavailable Unavailab le MANOHAR (PATSY), Sade ATKINSON MD Unavailable Unavailab le MANOHAR (PATSY), Sade ATKINSON MD Unavailable Unavailab le MANOHAR (PATSY), Sade ATKINSON MD Unavailable Unavailab le MANOHAR (PATSY), Sade ATKINSON MD Unavailable Unavailab le MANOHAR (PATSY), Sade ATKINSON MD Unavailable Unavailab le MANOHAR (PATSY), Sade ATKINSON MD Unavailable Unavailab le MANOHAR (PATSY), Sade ATKINSON MD Unavailable Unavailab le MANOHAR (PATSY), Sade ATKINSON MD Unavailable Unavailab le MANOHAR (PATSY), Sade ATKINSON MD Unavailable Unavailab le MANOHAR (PATSY), Sade ATKINSON MD Unavailable Unavailab le MANOHAR (PATSY), Sade ATKINSON MD Unavailable Unavailab le MANOHAR (PATSY), Sade ATKINSON MD Unavailable Unavailab le MANOHAR (PATSY), Sade ATKINSON MD Unavailable Unavailab le MANOHAR (PATSY), Sade ATKINSON MD Unavailable Unavailab le MANOHAR (PATSY), Sade ATKINSON MD Unavailable Unavailab le MANOHAR (PATSY), Sade ATKINSON MD Unavailable Unavailab le MANOHAR (PATSY), Sade ATKINSON MD Unavailable Unavailab le MANOHAR (PATSY), Sade ATKINSON MD Unavailable Unavailab le MANOHAR (PATSY), Sade ATKINSON MD Unavailable Unavailab le MANOHAR (PATSY), Sade ATKINSON MD Unavailable Unavailab le MANOHAR (PATSY), Sade ATKINSON MD Unavailable Unavailab le MANOHAR (PATSY), Sade ATKINSON MD Unavailable Unavailab le MANOHAR (PATSY), Sade ATKINSON MD Unavailable Unavailab le MANOHAR (PATSY), Sade ATKINSON MD Unavailable Unavailab le MANOHAR (PATSY), Sade ATKINSON MD Unavailable Unavailab le MANOHAR (PATSY), Sade ATKINSON MD Unavailable Unavailab le MANOHAR (PATSY), Sade ATKINSON MD Unavailable Unavailab le MANOHAR (PATSY), Sade ATKINSON MD Unavailable Unavailab le MANOHAR (PATSY), Sade ATKINSON MD Unavailable Unavailab le MANOHAR (PATSY), Sade ATKINSON MD Unavailable Unavailab le MANOHAR (PATSY), Sade ATIKNSON MD Unavailable Unavailab le MANOHAR (PATSY), Sade ATKINSON MD Unavailable Unavailab le MANOHAR (PATSY), Sade ATKINSON MD Unavailable Unavailab le MANOHAR (PATSY), Sade ATKINSON MD Unavailable Unavailab le MANOHAR (PATSY), Sade ATKINSON MD Unavailable Unavailab le MANOHAR (PATSY), Sade ATKINSON MD Unavailable Unavailab le MANOHAR (PATSY), Sade ATKINSON MD Unavailable Unavailab le MANOHAR (PATSY), Sade ATKINSON MD Unavailable Unavailab le MANOHAR (PATSY), Sade ATKINSON MD Unavailable Unavailab le MANOHAR (PATSY), Sade ATKINSON MD Unavailable Unavailab le MANOHAR (PATSY), Sade ATKINSON MD Unavailable Unavailab le MANOHAR (PATSY), Sade ATKINSON MD Unavailable Unavailab le MANOHAR (PATSY), Sade ATKINSON MD Unavailable Unavailab le MANOHAR (PATSY), Sade ATKINSON MD Unavailable Unavailab le MANOHAR (PATSY), Sade ATKINSON MD Unavailable Unavailab le MANOHAR (PATSY), Sade ATKINSON MD Unavailable Unavailab le MANOHAR (PATSY), Sade ATKINSON MD Unavailable Unavailab le MANOHAR (PATSY), Sade ATKINSON MD Unavailable Unavailab le MANOHAR (PATSY), Sade ATKINSON MD Unavailable Unavailab le MANOHAR (PATSY), Sade ATKINSON MD Unavailable Unavailab le MANOHAR (PATSY), Sade ATKINSON MD Unavailable Unavailab le MANOHAR (PATSY), Sade ATKINSON MD Unavailable Unavailab le MANOHAR (PATSY), Sade ATKINSON MD Unavailable Unavailab le MANOHAR (PATSY), Sade ATKINSON MD Unavailable Unavailab le MANOHAR (PATSY), Sade ATKINSON MD Unavailable Unavailab le MANOHAR (PATSY), Sade ATKINSON MD Unavailable Unavailab le MANOHAR (PATSY), Sade ATKINSON MD Unavailable Unavailab le MANOHAR (PATSY), Sade ATKINSON MD Unavailable Unavailab le MANOHAR (PATSY), Sade ATKINSON MD Unavailable Unavailab le MANOHAR (PATSY), Sade ATKINSON MD Unavailable Unavailab le MANOHAR (PATSY), Sade ATKINSON MD Unavailable Unavailab le MANOHAR (PATSY), Sade ATKINSON MD Unavailable Unavailab le MANOHAR (PATSY), Sade ATKINSON MD Unavailable Unavailab le MANOHAR (PATSY), Sade ATKINSON MD Unavailable Unavailab le MANOHAR (PATSY), Sade ATKINSON MD Unavailable Unavailab le MANOHAR (PATSY), Sade ATKINSON MD Unavailable Unavailab le MANOHAR (PATSY), Sade ATKINSON MD Unavailable Unavailab le MANOHAR (PATSY), Sade ATKINSON MD Unavailable Unavailab le MANOHAR (PATSY), Sade ATKINSON MD Unavailable Unavailab le MANOHAR (PATSY), Sade ATKINSON MD Unavailable Unavailab le MANOHAR (PATSY), Sade ATKINSON MD Unavailable Unavailab le MANOHAR (PATSY), Sade ATKINSON MD Unavailable Unavailab le Srikanth, A Ja PERALTA Unavailable Unavailable Srikanth, A Ja PERALTA Unavailable Unavailable Srikanth, Soheila Dow MD Unavailable Unavailable Srikanth, Soheila Dow MD Unavailable Unavailable Srikanth, Soheila Dow MD Unavailable Unavailable Srikanth, Soheila Dow MD Unavailable Unavailable Srikanth, Soheila Dow MD Unavailable Unavailable Srikanth, Soheila Dow MD Unavailable Unavailable Srikanth, A Ja PERALTA Unavailable Unavailable Srikanth, A Ja PERALTA Unavailable Unavailable Srikanth, A Ja PERALTA Unavailable Unavailable Srikanth, A Ja PERALTA Unavailable Unavailable Srikanth, Soheila Dow MD Unavailable Unavailable Srikanth, A Ja PERALTA Unavailable Unavailable Srikanth, A Ja PERALTA Unavailable Unavailable Srikanth, A Ja PERALTA Unavailable Unavailable Srikanth, A Ja PERATLA Unavailable Unavailable Srikanth, A Ja PERALTA Unavailable Unavailable Srikanth, A Ja PERALTA Unavailable Unavailable Srikanth, A Ja PERALTA Unavailable Unavailable Srikanth, Soheila Dow MD Unavailable Unavailable Srikanth, A Ja PERALTA Unavailable Unavailable Srikanth, A Ja PERALTA Unavailable Unavailable Srikanth, A Ja PERALTA Unavailable Unavailable Srikanth, A Ja PERALTA Unavailable Unavailable Srikanth, A Ja PERALTA Unavailable Unavailable Srikanth, Soheila Dow MD Unavailable Unavailable Srikanth, Soheila Dow MD Unavailable Unavailable Srikanth, Soheila Dow MD Unavailable Unavailable Srikanth, A Ja PERALTA Unavailable Unavailable Srikanth, A Ja PERALTA Unavailable Unavailable Srikanth, A Ja PERALTA Unavailable Unavailable Srikanth, Soheila Dow MD Unavailable Unavailable Srikanth, Soheila Dow MD Unavailable Unavailable Srikanth, Soheila Dow MD Unavailable Unavailable Srikanth, Soheila Dow MD Unavailable Unavailable Srikanth, Soheila Dow MD Unavailable Unavailable Srikanth, Soheila Dow MD Unavailable Unavailable Srikanth, Soheila Dow MD Unavailable Unavailable Srikanth, Soheila Dow MD Unavailable Unavailable Srikanth, Soheila Dow MD Unavailable Unavailable Srikanth, Soheila Dow MD Unavailable Unavailable Srikanth, Soheila Dow MD Unavailable Unavailable Srikanth, Soheila Dow MD Unavailable Unavailable Srikanth, Soheila Dow MD Unavailable Unavailable Srikanth, Soheila Dow MD Unavailable Unavailable Srikanth, Soheila Dow MD Unavailable Unavailable Srikanth, Soheila Dow MD Unavailable Unavailable Srikanth, Soheila Dow MD Unavailable Unavailable Srikanth, Soheila Dow MD Unavailable Unavailable Srikanth, Soheila Dow MD Unavailable Unavailable Srikanth, Soheila Dow MD Unavailable Unavailable Srikanth, Soheila Dow MD Unavailable Unavailable Srikanth, Soheila Dow MD Unavailable Unavailable Srikanth, Soheila Dow MD Unavailable Unavailable Srikanth, Soheila Dow MD Unavailable Unavailable Srikanth, Soheila Dow MD Unavailable Unavailable Srikanth, Soheila Dow MD Unavailable Unavailable Srikanth, Soheila Dow MD Unavailable Unavailable Srikanth, Soheila Dow MD Unavailable Unavailable Srikanth, Soheila Dow MD Unavailable Unavailable Srikanth, Soheila Dow MD Unavailable Unavailable Srikanth, Soheila Dow MD Unavailable Unavailable Srikanth, Soheila Dow MD Unavailable Unavailable Srikanth, Soheila Dow MD Unavailable Unavailable Srikanth, Soheila Dow MD Unavailable Unavailable Srikanth, Soheila Dow MD Unavailable Unavailable Srikanth, Soheila Dow MD Unavailable Unavailable Srikanth, Soheila Dow MD Unavailable Unavailable Srikanth, Soheila Dow MD Unavailable Unavailable Srikanth, Soheila Dow MD Unavailable Unavailable Srikanth, Soheila Dow MD Unavailable Unavailable Srikanth, Soheila Dow MD Unavailable Unavailable Srikanth, Soheila Dow MD Unavailable Unavailable Srikanth, Soheila Dow MD Unavailable Unavailable Srikanth, Soheila Dow MD Unavailable Unavailable Srikanth, Soheila Dow MD Unavailable Unavailable Srikanth, Soheila Dow MD Unavailable Unavailable Srikanth, Soheila Dow MD Unavailable Unavailable Srikanth, Soheila Dow MD Unavailable Unavailable Srikanth, Soheila Dow MD Unavailable Unavailable Srikanth, Soheila Dow MD Unavailable Unavailable Srikanth, Soheila Dow MD Unavailable Unavailable Srikanth, Soheila Dow MD Unavailable Unavailable Srikanth, Soheila Dow MD Unavailable Unavailable Srikanth, Soheila Dow MD Unavailable Unavailable Srikanth, Soheila Dow MD Unavailable Unavailable Srikanth, Soheila Dow MD Unavailable Unavailable Srikanth, Soheila Dow MD Unavailable Unavailable Srikanth, Soheila Dow MD Unavailable Unavailable Srikanth, Soheila Dow MD Unavailable Unavailable Srikanth, Soheila Dow MD Unavailable Unavailable Srikanth, Soheila Dow MD Unavailable Unavailable Srikanth, Soheila Dow MD Unavailable Unavailable Srikanth, Soheila Dow MD Unavailable Unavailable Srikanth, Soheila Dow MD Unavailable Unavailable Srikanth, Soheila Dow MD Unavailable Unavailable Srikanth, Soheila Dow MD Unavailable Unavailable Srikanth, Soheila Dow MD Unavailable Unavailable Srikanth, Soheila Dow MD Unavailable Unavailable Srikanth, Soheila Dow MD Unavailable Unavailable Srikanth, Soheila Dow MD Unavailable Unavailable Srikanth, Soheila Dow MD Unavailable Unavailable Srikanth, Soheila Dow MD Unavailable Unavailable JOHN MICHEL MD Unavailable Unavailable JOHN MICHEL MD Unavailable Unavailable JOHN MICHEL MD Unavailable Unavailable JOHN MICHEL MD Unavailable Unavailable JOHN MICHEL MD Unavailable Unavailable JOHN MICHEL MD Unavailable Unavailable JOHN MICHEL MD Unavailable Unavailable JOHN MICHEL MD Unavailable Unavailable JOHN MICHEL MD Unavailable Unavailable JOHN MICHEL MD Unavailable Unavailable JOHN MICHEL MD Unavailable Unavailable JOHN MICHEL MD Unavailable Unavailable JOHN MICHEL MD Unavailable Unavailable JOHN MICHEL MD Unavailable Unavailable JOHN MICHEL MD Unavailable Unavailable JOHN MICHEL MD Unavailable Unavailable JOHN MICHEL MD Unavailable Unavailable JOHN MICHEL MD Unavailable Unavailable MICHEL, JOHN MD Unavailable Unavailable MICHEL, JOHN MD Unavailable Unavailable MICHEL, JOHN MD Unavailable Unavailable MICHEL, JOHN MD Unavailable Unavailable MICHEL, JOHN MD Unavailable Unavailable MICHEL, JOHN MD Unavailable Unavailable MICHEL, JOHN MD Unavailable Unavailable MICHEL, JOHN MD Unavailable Unavailable MICHEL, JOHN MD Unavailable Unavailable MICHEL, JHON MD Unavailable Unavailable MICHEL, JOHN MD Unavailable Unavailable MICHEL, JOHN MD Unavailable Unavailable Re-disclosure Warning The records that you are about to access may contain information from federally-assisted alcohol or drug abuse programs. If such information is present, then the following federally mandated warning applies: This information has been disclosed to you from records protected by federal confidentiality rules (42 CFR part 2). The federal rules prohibit you from making any further disclosure of this information unless further disclosure is expressly permitted by the written consent of the person to whom it pertains or as otherwise permitted by 42 CFR part 2. A general authorization for the release of medical or other information is NOT sufficient for this purpose. The Federal rules restrict any use of the information to criminally investigate or prosecute any alcohol or drug abuse patient.The records that you are about to access may contain highly sensitive health information, the redisclosure of which is protected by Article 27-F of the [facility] Public Health law. If you continue you may have access to information: Regarding HIV / AIDS; Provided by facilities licensed or operated by the [facility] Office of Mental Health; or Provided by the [facility] Office for People With Developmental Disabilities. If such information is present, then the following [facility] mandated warning applies: This information has been disclosed to you from confidential records which are protected by state law. State law prohibits you from making any further disclosure of this information without the specific written consent of the person to whom it pertains, or as otherwise permitted by law. Any unauthorized further disclosure in violation of state law may result in a fine or group home sentence or both. A general authorization for the release of medical or other information is NOT sufficient authorization for further disc losure. Family History Family Member Name Family Member Gender Family Member Status Date o f Status Description Data Source(s) Unknown Female Problem MEDENT ([facility]) Unknown Female Problem [facility] ([facility]) Encounters Encounter Providers Location Date Indications Data Source(s ) Office Visit Attender: Jeremy BAPTISTE Physical Therapy 02:00:00 PM EST MEDENT ([facility]) Outpatient Attender: TARYN GARNER MD [place] [facility] 10/2020 01:30:00 PM EST [facility] ([facility] (WC 20ESGYN) WCenter 20 Min Est [employer] [address] [place] [address] 09/23/2020 12:00:00 AM EST eCW1 ([facility]) Office Visit Attender: IRINA BAPTISTE Physical Therapy 09/22/2020 07:30:00 AM EST MED[facility] ([facility]) Attender: DEMETRIO KLINE) MDReferrer: Licha Duke MD 09/13/2020 08:21:01 PM EST [facility] (WC 20ESGYN) WCenter 20 Min Est [employer] [address] [place] [address] 09/06/2020 12:00:00 AM EST eCW1 ([facility]) Office Visit Attender: Conner Shaver MD Physical Therapy 2019 07:45:00 AM EST MED[facility] ([facility]) Outpatient Attender: LEAH Pickett/David/Edvin/Melina blackwood 08/01/2020 08:15:00 AM EST [facility] ([facility] Office Visit Attender: IRINA BAPTISTE Physical Therapy 07/25/2020 02:30:00 PM EST MED[facility] ([facility]) Outpatient Attender: TARYN GARNER MD [place] [facility] 01:00:00 PM EST MED[facility] ([facility] Outpatient Referrer: Roslyn Jerez MD SJFredis.[email or web address] 07/03 12:00:00 AM EST - 07/18/2020 12:46:[address] [facility] Outpatient [address] [facility] [address] 07/15/2020 12:00:00 AM EST eCW1 ([facility]) Outpatient Attender: Roslyn Jerez MDReferrer: RAVEN SAMANIEGO DO SJP.[email or web address] 07/14/2020 12:00:00 AM EST - 07/14/2020 11:55:[address] [facility] OFFICE OUTPATIENT VISIT 15 MINUTES Attender: IRINA BAPTISTE Physical Therapy 07/08/2020 01:00:00 PM EST MEDENT ([facility]) (BC FU) [place] [address] [place] [address] 07/01/2020 12:00:00 AM EDT eCW1 ([facility]) Unknown [address] [facility] [address] 07/01/2020 12:00:00 AM EDT eCW1 ([facility]) Outpatient [address] [facility] [address] 06/29/2020 12:00:00 AM EDT eCW1 ([facility]) Office Visit, Est Pt., Level 4 PC [address] [place] [address] 06/15/2020 12:00:00 AM EDT eCW1 ([facility]) Unknown [address] [facility] [address] 06/15/2020 12:00:00 AM EDT eCW1 ([facility]) (BC FU) [place] [address] [place] [phone] 06/13/2020 12:00:00 AM EDT eCW1 ([facility]) (BC FU) Breast Center Follow Up [address] [place] [address] 06/06/2020 12:00:00 AM EDT eCW1 ([facility]) Unknown [address] [facility] [address] 06/04/2020 12:00:00 AM EDT eCW1 ([facility]) (BC FU) Breast Center Follow Up [address] [place] [address] 05/30/2020 12:00:00 AM EDT eCW1 ([facility]) (WC PO) WCenter Post Op [address] [place] [address] 05/25/2020 12:00:00 AM EDT eCW1 ([facility]) Outpatient Attender: TARYN GARNER MD [place] [facility] 11:30:00 AM EDT [facility] ([facility] [place] [address] [facility] [address] 05/13/2020 12:00:00 AM EDT eCW1 ([facility]) Unknown [address] [facility] [address] 04/27/2020 12:00:00 AM EDT eCW1 ([facility]) Attender: DEMETRIO KLINE) MDReferrer: Licha Duke MD 04/26/2020 08:20:08 PM EDT [facility] Attender: DEMETRIO KLINE) MDReferrer: Licha Duke MD 04/26/2020 08:20:08 PM EDT [facility] Attender: DEMETRIO KLINE) MDReferrer: Licha Duke MD 04/26/2020 08:20:08 PM EDT [facility] Outpatient Attender: Blayne ShaverReferrer: Blayne Shaver [facility] 04/26/2020 11:57:00 AM EDT - 04/26/2020 11:57:00 AM EDT [facility] Outpatient Attender: TRAVIS QUINONEZ [id number] 04/25/2020 09:50:5 9 AM T [facility] Unknown [address] [facility] [address] 04/18/2020 12:00:00 AM EDT eCW1 ([facility]) Emergency Attender: SHAKILA PRECIADO PAReferrer: Blayne sharif 03/22/2020 08:20:00 AM EDT - 03/22/2020 08:26:00 AM EDT [facility] Patient discharged. Outpatient Attender: IRINA BAPTISTE Physical Therapy 03/10/2020 02:15:00 PM EDT [facility] ([facility]) [place] [address] [facility] [address] 03/09/2020 12:00:00 AM EDT eCW1 ([facility]) Outpatient [address] [facility] [place] [address] 03/07/2020 12:00:00 AM EDT eCW1 ([facility]) [place] [address] [facility] [address] 03/02/2020 12:00:00 AM EDT eCW1 ([facility]) [place] [address] [facility] [address] 02/29/2020 12:00:00 AM EDT eCW1 ([facility]) Outpatient Referrer: IRINA BAPTISTE 02/25/2020 06:08 :00 AM EDT [facility] Unknown [address] [facility] [address] 02/15/2020 12:00:00 AM EDT eCW1 ([facility]) [place] [address] [facility] [address] 02/11/2020 12:00:00 AM EDT eCW1 ([facility]) Unknown [address] [facility] [place] [address] 02/10/2020 12:00:00 AM EDT eCW1 ([facility]) [place]patient [address] [facility] [address] 01/27/2020 12:00:00 AM EDT eCW1 ([facility]) [place] [address] [facility] [address] 01/20/2020 12:00:00 AM EDT eCW1 ([facility]) Outpatient Attender: JOHN MICHEL MD Physical Therapy 01:45:00 PM EDT [facility] ([facility]) Outpatient Attender: Conner Shaver MD Physical Therapy 12/03/2019 0 1:00:00 PM EDT MED[facility] ([facility]) Outpatient Attender: TARYN GARNER MD [place] [facility] 10/2019 08:45:00 AM EDT MED[facility] ([facility] Outpatient Attender: IRINA BAPTISTE Physical Therapy 10/28/2019 08:15:00 AM EST [facility] ([facility]) Outpatient Referrer: IRINA BAPTISTE 09/17/2019 05:04 :00 PM EST [facility] Outpatient Attender: TARYN GARNER MD [place] [facility] 10/2019 01:00:00 PM EST [facility] ([facility] Emergency Attender: Je HERRING EMERGENCY ROOM-ER 0 03/25/2017 05:24:00 PM EDT - 03/05/2017 07:49:00 PM [facility] Emergency Attender: Je HERRING 05:49:00 PM EDT - 11/24/2016 07:42:00 PM [facility] Emergency Attender: Je HERRING 05:49:00 PM EDT - 05/17/2016 08:33:00 PM [facility] Emergency Attender: SHAKILA BAPTISTE EMERGENCY ROOM-ER 11/03/2015 03:26:00 AM EST - 11/03/2015 07:24:00 AM [facility] Emergency Attender: LIBERTAD BAPTISTE 08/08 10:34:00 PM EST - 08/08/2015 11:30:00 PM [facility] Emergency Attender: SHAKILA BAPTISTE 11:59:00 PM EDT - 03/30/2015 12:52:00 AM [facility] Immunizations Vaccine Date Status Description Data Source(s) New in 2012. IIV4 07/19/2020 01:00:00 PM EST completed [facility] ([facility] Medications Medication Brand Name Start Date Product Form Dose Route Admi nistrative Instructions Pharmacy Instructions Status Indications Reaction Description Data Source(s) 0.3 ML Epinephrine 1 MG/ML Auto-Injector [Epipen] Epipen 2-P ak 10/05/2020 12:00:00 AM EST active M EDENT ([facility] Injection (SC)/(Im) 10/05/2020 12:00:00 AM EST completed [facility] ([facility] Medication administered onsite Mupirocin 0.02 MG/MG Topical Ointment Mupirocin 10/03/2020 12:00:00 AM EST active [facility] chlorhexidine gluconate 40 MG/ML Medicated Liquid Soap [Hibi clens] Hibiclens 10/03/2020 12:00:00 AM EST active [facility] ([facility]) 1 mg 09/16/2020 12:00:00 AM EST tablet 90 TAKE ONE TABLET BY MOUTH EVERY DAY TAKE ONE TABLET BY MOUTH EVERY DAY SOLD: 09/16/2020 [facility] 5 mg 09/06/2020 12:00:00 AM EST tablet extended release 24hr 30 TAKE ONE TABLET BY MOUTH EVERY DAY TAKE ONE TABLET BY MOUTH EVERY DAY SOLD: 10/03/2020 [facility] 5 mg 09/06/2020 12:00:00 AM EST tablet extended release 24hr 30 TAKE ONE TABLET BY MOUTH EVERY DAY TAKE ONE TABLET BY MOUTH EVERY DAY SOLD: 09/06/2020 [facility] 24 HR Oxybutynin chloride 5 MG Extended Release Oral Tablet Oxybutynin Chloride ER 5 MG Oxybutynin Chloride ER 5 MG 09/06/2020 12:00:00 AM EST 1.0 {tablet} active Oxybutynin Chloride ER 5 MG eCW1 ([facility]) 24 HR Oxybutynin chloride 5 MG Extended Release Oral Tablet Oxybutynin Chloride ER 5 MG Oxybutynin Chloride ER 5 MG 09/06/2020 12:00:00 AM EST 1.0 {tablet} suspended Oxybutynin Chloride ER 5 MG eCW1 ([facility]) 600 mg 08/12/2020 12:00:00 AM EST tablet 30 TAKE ONE TABLET BY MOUTH THREE TIMES A DAY FOR PAIN WITH FOOD TAKE ONE TABLET BY MOUTH THREE TIMES A D AY FOR PAIN WITH FOOD SOLD: 08/15/2020 [facility] 1 mg 08/12/2020 12:00:00 AM EST tablet 30 TAKE ONE TABLET BY MOUTH EVERY DAY TAKE ONE TABLET BY MOUTH EVERY DAY SOLD: 08/15/2020 [facility] 5-325 mg 08/12/2020 12:00:00 AM EST tablet 15 TAKE ONE TABLET BY MOUTH THREE TIMES A DAY NEEDED FOR PAIN MAXIMUM DAILY DOSE = 3 TAKE ONE TABLET BY MOUTH THREE TIMES A DAY NEEDED FOR PAIN MAXIMUM DAILY DOSE = 3 SOLD: 08/15/2020 [facility] Vitamin B 12 0.5 MG Oral Lozenge Vitamin B-12 active MEDENT ([facility] ) 5 mg 05/26/2020 12:00:00 AM EDT tablet 20 TAKE ONE TABLET BY MOUTH EVERY 6 HOURS NEEDED FOR PAIN MAXIMUM DAILY DOSE = FOUR TABLETS TAKE ONE TABLET BY MOUTH EVERY 6 HOURS NEEDED FOR PAIN MAXIMUM DAILY DOSE = FOUR TABLETS SOLD: 05/26/2020 [facility] 5 mg 05/24/2020 12:00:00 AM EDT tablet 10 TAKE ONE TABLET BY MOUTH EVERY 6 HOURS NEEDED FOR PAIN MAXIMUM DAILY DOSE = 4 TAKE ONE TABLET BY MOUTH EVERY 6 HOURS NEEDED FOR PAIN MAXIMUM DAILY DOSE = 4 SOLD: 05/24/2020 [facility] Collagen Ultra active MED ENT ([facility] 500 mg 05/16/2020 12:00:00 AM EDT tablet 10 TAKE ONE TABLET BY MOUTH TWICE A DAY TAKE ONE TABLET BY MOUTH TWICE A DAY SOLD: 05/16/2020 [facility] 2.5-2.5 % 05/14/2020 12:00:00 AM EDT cream 30 APPLY ENTIRE TUBE TO RIGHT NIPPLE 2 HOURS BEFORE COMING TO HOSPITAL FOR SURGERY, COVER WITH PLASTIC. APPLY ENTIRE TUBE TO RIGHT NIPPLE 2 HOURS BEFORE COMING TO HOSPITAL FOR SURGERY, COVER WITH PLASTIC. SOLD: 05/16/2020 [facility] 20 mg 05/12/2020 12:00:00 AM EDT capsule,delayed release (DR/EC) 30 TAKE ONE CAPSULE BY MOUTH EVERY DAY TAKE ONE CAPSULE BY MOUTH EVERY DAY SOLD: 07/14/2020 [facility] 20 mg 05/12/2020 12:00:00 AM EDT capsule,delayed release (DR/EC) 30 TAKE ONE CAPSULE BY MOUTH EVERY DAY TAKE ONE CAPSULE BY MOUTH EVERY DAY SOLD: 08/15/2020 [facility] 20 mg 05/12/2020 12:00:00 AM EDT capsule,delayed release (DR/EC) 30 TAKE ONE CAPSULE BY MOUTH EVERY DAY TAKE ONE CAPSULE BY MOUTH EVERY DAY SOLD: 06/13/2020 [facility] 20 mg 05/12/2020 12:00:00 AM EDT capsule,delayed release (DR/EC) 30 TAKE ONE CAPSULE BY MOUTH EVERY DAY TAKE ONE CAPSULE BY MOUTH EVERY DAY SOLD: 09/16/2020 [facility] 20 mg 05/12/2020 12:00:00 AM EDT capsule,delayed release (DR/EC) 30 TAKE ONE CAPSULE BY MOUTH EVERY DAY TAKE ONE CAPSULE BY MOUTH EVERY DAY SOLD: 05/13/2020 [facility] 24,000-76,000 -120,000 unit 04/26/2020 12:00:00 AM EDT capsule,delayed release(DR/EC) 270 TAKE ONE CAPSULE BY MOUTH EVERY DAY BEFORE MEALS TAKE ONE CAPSULE BY MOUTH EVERY DAY BEFORE MEALS SOLD: 04/29/2020 [facility] 5 mg 03/03/2020 12:00:00 AM EDT tablet 1 TAKE 1 TABLET BY MOUTH PRIOR TO MRI BIOPSY AFTER YOU SIGN CONSENT ONCE MAXIMUM DAILY DOSE = 1 TABLET TAKE 1 TABLET BY MOUTH PRIOR TO MRI BIOPSY AFTER YOU SIGN CONSENT ONCE MAXIMUM DAILY DOSE = 1 TABLET SOLD: 03/03/2020 [facility] 2 % 08/27/2019 12:00:00 AM EST ointment 22 APPLY PEA SIZE AMT.W/QTIP INSIDE NASAL PASSAGES 3X/DAY X 5 DAYS PRIOR TO SURGERY APPLY PEA SIZE AMT.W/QTIP INSIDE NASAL PASSAGES 3X/DAY X 5 DAYS PRIOR TO SURGERY SOLD: 08/28/2019 [facility] 4 % 08/27/2019 12:00:00 AM EST liquid 118 APPLY TO SKIN IN SHOWER OR BATH DAILY FOR 5 DAYS APPLY TO SKIN IN SHOWER OR BATH DAILY FOR 5 DAYS SOLD: 08/28/2019 [facility] Mupirocin 0.02 MG/MG Nasal Ointment [Bactroban] Bactroban Na remi 07/15/2019 12:00:00 AM EST completed [facility] ([facility]) chlorhexidine gluconate 40 MG/ML Medicated Liquid Soap [Hibi clens] Hibiclens 07/15/2019 12:00:00 AM EST TOPICAL completed MEDENT ([facility]) Insurance Providers Payer name Policy type / Coverage type Policy ID Covered alliance party ID Covered alliance party's relationship to frances Policy Frances Plan Information OCT[employer]IO CLAIM ADMIN WORK COMP [id number] SP [id number] MEDICARE BLUE PPO [id number] SP [id number] MEDICARE BLUE PPO 306 [id number] SP [id number] [place] [id number] [place] [id number] [place] [place] HMO PPO POS [id number] [place] H[place] PPO POS [id number] [employer] [place] INDEMNITY [id number] MEDICARE BLUE PPO 306 [id number] SP [id number] MEDICARE [id number] SP [id number] BCBS [place] HMO [id number] SP [id number] [place] PPO 302/307 [id number] SP [id number] HMO BLUE [id number] SP [id number] MEDICARE [id number] Janine [id number] [place] BCBS MEDICARE [id number] Janine [id number] MEDICARE [id number] Janine [id number] [employer]CELL[place] BCBS MCR HMO [id number] S [id number] EXCELLUS BCBS B [id number] S [id number] POMCO [id number] S [id number] EXCELLUS MEDICARE BLUE PPO G [id number] Self [id number] NCA COMP INS [id number] S [id number] BCBS HMO BLUE [id number] S [id number] POMCO [id number] S [id number] EXCELLUS BCBS MCR HMO [id number] S [id number] EXCELLUS BCBS B [id number] S [id number] MEDICARE BLUE PPO [id number] SP [id number] BCBS HMO BLUE [id number] S [id number] BCBS HMO BLUE [id number] S [id number] NCA [id number] S [id number] [place] [place] BLUE [place] MCR - RECURRING HM [id number] MEDICARE -RECURRING HM [id number] 18 [id number] [employer] [place] [place]I[employer] MCR -OP HM [id number] 18 [id number] [place] MED[place] HM [id number] 18 [id number] MEDICARE PART A -RECURRING [id number] 18 [id number] BLUE [employer] BLUE SHIELD -RECURRING [id number] 18 [id number] Ghi/Emblem HLTH (pr) Medigap Part B [id number] Family Depende nt [id number] Ghi FHP-(DO Not Use) Medigap Part B [id number] Self [id number] [place] [id number] Self [id number] Blue Shield MCR Advantage Commercial [id number] Self [id number] [place] (pr) Medigap Part B [id number] Self [id number] Oct[employer] Claims (WC) Workers Compensation [id number] Self [id number] Ghi/Emblem HLTH (pr) Medigap Part B [id number] Family Depende nt [id number] Ghi FHP-(DO Not Use) Medigap Part B [id number] Self [id number] [place] [id number] Self [id number] Ghi/Emblem HLTH (pr) Medigap Part B [id number] Family Depende nt [id number] Ghi FHP-(DO Not Use) Medigap Part B [id number] Self [id number] [place] [id number] Self [id number] Ghi/Emblem HLTH (pr) Medigap Part B [id number] Family Depende nt 556986162 Ghi FHP-(DO Not Use) Medigap Part B [id number] Self [id number] [place] [id number] Self [id number] Ghi/Emblem HLTH (pr) Medigap Part B [id number] Family Depende nt [id number] Ghi FHP-(DO Not Use) Medigap Part B [id number] Self [id number] [place] [id number] Self [id number] Ghi/Emblem HLTH (pr) Medigap Part B 008173239 Family Depende nt [phone] Ghi FHP-(DO Not Use) Medigap Part B [id number] Self [id number] [place] [id number] Self [id number] Ghi/Emblem HLTH (pr) Medigap Part B [id number] Family Depende nt [phone] Ghi FHP-(DO Not Use) Medigap Part B [id number] Self [id number] [place] [id number] Self [id number] Ghi/Emblem HLTH (pr) Medigap Part B 912801982 Family Depende nt [id number] Ghi FHP-(DO Not Use) Medigap Part B [id number] Self [id number] [place] [id number] Self [id number] BCBS [place] HMO [id number] SP [id number] Ghi/Emblem HLTH (pr) Medigap Part B 884096628 Family Depende nt 641577830 Ghi FHP-(DO Not Use) Medigap Part B [id number] Self [id number] [place] [id number] Self [id number] Ghi/Emblem HLTH (pr) Medigap Part B 579953678 Family Depende nt [id number] Ghi FHP-(DO Not Use) Medigap Part B [id number] Self [id number] [place] [id number] Self [id number] Ghi/Emblem HLTH (pr) Medigap Part B 150226413 Family Depende nt [phone] Ghi FHP-(DO Not Use) Medigap Part B [id number] Self [id number] [place] [id number] Self [id number] Ghi/Emblem HLTH (pr) Medigap Part B 297206765 Family Depende nt 329686919 Ghi FHP-(DO Not Use) Medigap Part B [id number] Self [id number] [place] [id number] Self [id number] HMO BLUE [id number] SP [id number] ANSI-Commercial [id number] Ghi/Emblem HLTH (pr) Medigap Part B [id number] Family Depende nt [id number] Ghi FHP-(DO Not Use) Medigap Part B [id number] Self [id number] [place] [id number] Self [id number] Ghi/Emblem HLTH (pr) Medigap Part B 840875143 Family Depende nt 748064174 Ghi FHP-(DO Not Use) Medigap Part B [id number] Self [id number] [place] [id number] Self [id number] Ghi/Emblem HLTH (pr) Medigap Part B 917396535 Family Depende nt [id number] Ghi FHP-(DO Not Use) Medigap Part B [id number] Self [id number] [place] [id number] Self [id number] BLUE CROSS BLUE SHIELD -O/P [id number] 18 [id number] Ghi/Emblem HLTH (pr) Medigap Part B 721208523 Family Depende nt [phone] Ghi FHP-(DO Not Use) Medigap Part B [id number] Self [id number] [place] [id number] Self [id number] Ghi/Emblem HLTH (pr) Medigap Part B [id number] Family Depende nt [id number] Ghi FHP-(DO Not Use) Medigap Part B [id number] Self [id number] [place] [id number] Self [id number] Ghi/Emblem HLTH (pr) Medigap Part B 529490555 Family Depende nt [phone] Ghi FHP-(DO Not Use) Medigap Part B [id number] Self [id number] [place] [id number] Self [id number] Ghi/Emblem HLTH (pr) Medigap Part B [id number] Family Depende nt 461354536 Ghi FHP-(DO Not Use) Medigap Part B [id number] Self [id number] [place] [id number] Self [id number] EXCELLUS BCBS B [id number] S [id number] Ghi/Emblem HLTH (pr) Medigap Part B [id number] Family Depende nt [id number] Ghi FHP-(DO Not Use) Medigap Part B [id number] Self [id number] [place] [id number] Self [id number] BCBS [place] PPO 302/307 [id number] SP [id number] Ghi/Emblem HLTH (pr) Medigap Part B 020299740 Family Depende nt 903319425 Ghi FHP-(DO Not Use) Medigap Part B [id number] Self [id number] [place] [id number] Self [id number] Ghi/Emblem HLTH (pr) Medigap Part B 547662731 Family Depende nt 758523748 Ghi FHP-(DO Not Use) Medigap Part B [id number] Self [id number] [place] [id number] Self [id number] Ghi/Emblem HLTH (pr) Medigap Part B [id number] Family Depende nt [phone] Ghi FHP-(DO Not Use) Medigap Part B [id number] Self [id number] [place] [id number] Self [id number] Ghi/Emblem HLTH (pr) Medigap Part B [id number] Family Depende nt [id number] Ghi FHP-(DO Not Use) Medigap Part B [id number] Self [id number] [place] [id number] Self [id number] Ghi/Emblem HLTH (pr) Medigap Part B [id number] Family Depende nt [id number] Ghi FHP-(DO Not Use) Medigap Part B [id number] Self [id number] [place] [id number] Self [id number] Ghi/Emblem HLTH (pr) Medigap Part B 890864400 Family Depende nt [phone] Ghi FHP-(DO Not Use) Medigap Part B [id number] Self [id number] [place] [id number] Self [id number] Ghi/Emblem HLTH (pr) Medigap Part B 972428126 Family Depende nt 517699180 Ghi FHP-(DO Not Use) Medigap Part B [id number] Self [id number] [place] [id number] Self [id number] Ghi/Emblem HLTH (pr) Medigap Part B 428564444 Family Depende nt [id number] Ghi FHP-(DO Not Use) Medigap Part B [id number] Self [id number] [place] [id number] Self [id number] [employer]OM[employer] [id number] SP [id number] Ghi/Emblem HLTH (pr) Medigap Part B 924097284 Family Depende nt [phone] Ghi FHP-(DO Not Use) Medigap Part B [id number] Self [id number] [place] [id number] Self [id number] Ghi/Emblem HLTH (pr) Medigap Part B 220342429 Family Depende nt 504509300 Ghi FHP-(DO Not Use) Medigap Part B [id number] Self [id number] [place] [id number] Self [id number] Ghi/Emblem HLTH (pr) Medigap Part B 919712066 Family Depende nt 175916630 Ghi FHP-(DO Not Use) Medigap Part B [id number] Self [id number] [place] [id number] Self [id number] Ghi/Emblem HLTH (pr) Medigap Part B 896058874 Family Depende nt [phone] Ghi FHP-(DO Not Use) Medigap Part B [id number] Self [id number] [place] Part B [id number] Self [id number] OCTAV[employer] CLAIMS -RECURRING [id number] [phone] [id number] Ghi/Emblem HLTH (pr) Medigap Part B [id number] Family Depende nt 356680880 Ghi FHP-(DO Not Use) Medigap Part B [id number] Self [id number] [place] Medigap Part B [id number] Self [id number] Ghi/Emblem HLTH (pr) Medigap Part B 324144016 Family Depende nt 390358561 Ghi FHP-(DO Not Use) Medigap Part B [id number] Self [id number] [place] [id number] Self [id number] [facility] HMO/PPO/POS [id number] 0 [id number] Ghi/Emblem HLTH (pr) Medigap Part B 208190804 Family Depende nt [id number] Ghi FHP-(DO Not Use) Medigap Part B [id number] Self [id number] [place] Medigap Part B [id number] Self [id number] Ghi/Emblem HLTH (pr) Medigap Part B 192444356 Family Depende nt 381796309 Ghi FHP-(DO Not Use) Medigap Part B [id number] Self [id number] [place] Medigap Part B [id number] Self [id number] Ghi/Emblem HLTH (pr) Medigap Part B [id number] Family Depende nt [id number] Ghi FHP-(DO Not Use) Medigap Part B [id number] Self [id number] [place] Medigap Part B [id number] Self [id number] BCBS [place] PPO 302/307 [id number] SP [id number] Ghi/Emblem HLTH (pr) Medigap Part B 885796092 Family Depende nt 079472085 Ghi FHP-(DO Not Use) Medigap Part B [id number] Self [id number] [place] Medigap Part B [id number] Self [id number] Ghi/Emblem HLTH (pr) Medigap Part B 583824768 Family Depende nt 159869029 Ghi FHP-(DO Not Use) Medigap Part B [id number] Self [id number] [place] Medigap Part B [id number] Self [id number] Ghi/Emblem HLTH (pr) Medigap Part B 875976042 Family Depende nt 177385422 Ghi FHP-(DO Not Use) Medigap Part B [id number] Self [id number] [place] Medigap Part B [id number] Self [id number] EXCELLUS BCBS B [id number] S YNC [id number] ONE CALL CARE MANAGEMENT O [id number] S [id number] [employer] PPO O [id number] S [id number] [employer] [id number] SP [id number] [employer] Claims (WC) Workers Compensation Self OCT[employer] CLAIMS -RECURRING [id number] [phone] [facility] WC [id number] S [id number] [employer] Claims (WC) Workers Compensation Self [employer]OM[employer] [id number] Janine [id number] [employer]-RECURRING [id number] 18 [phone] Ghi/Emblem HLTH (pr) Medigap Part B Family Depende nt Ghi FHP-(DO Not Use) Medigap Part B Self [employer] (pr) Commercial Self [id number] Problems, Conditions, and Diagnoses Code Display Name Description Problem Type Effective Dates Data Source(s) N39.3 Incontinence Incontinence in female Problem 07/15/2020 12:00:00 AM EST eCW1 ([facility]) I51.7 [id number] Cardiomegaly Problem 07/01/2020 12:00:00 AM EDT eCW1 ([facility]) Z46.89 [id number] Encounter for fitting and adjustment of p essary Problem 06/15/2020 12:00:00 AM EDT eCW1 ([facility]) N81.10 [id number] Pelvic organ prolapse quantification stag e 4 cystocele Problem 06/15/2020 12:00:00 AM EDT eCW1 ([facility]) C50.411 [id number] Malignant neoplasm o f upper-outer quadrant of right female breast Problem 06/06/2020 12:00:00 AM EDT eCW1 ([facility]) C50.911 [id number] Malignant neoplasm o f right female breast, unspecified estrogen receptor status, unspecified site of breast Problem 0 02/15/2020 12:00:00 AM EDT eCW1 ([facility]) C50.911 [id number] Malignant neoplasm of unspecifie d site of right female breast Problem 01/27/2020 12:00:00 AM EDT eCW1 ([facility]) I51.7 Cardiomegaly Cardiomegaly Diagnosis 07/14/2020 10:26:58 A M EST [facility] E56.9 Vitamin deficiency, unspecified VITAMIN DEFICIENCY, UN SPECIFIED Diagnosis 04/26/2020 11:57:00 AM [facility] R10.31 Right lower quadrant pain RIGHT LOWER QUADRANT PAIN Di agnosis 04/26/2020 11:57:00 AM [facility] 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 Diagnosis 04/26/2020 11:57:00 AM [facility] 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 Diagnosis 04/26/2020 11 :57:00 AM [facility] R19.7 Diarrhea, unspecified DIARRHEA, UNSPECIFIED Diagnosis 04/26/2020 11:57:00 AM [facility] K21.9 Gastro-esophageal reflux disease without esophagitis GASTRO-ESOPHAGEAL REFLUX DISEASE WITHOUT Diagnosis 04/26/2020 11:57:00 AM [facility] K44.9 Diaphragmatic hernia without obstruction or gangrene DIAPHRAGMATIC HERNIA WITHOUT OBSTRUCTION Diagnosis 04/26/2020 11:57:00 AM [facility] l K22.2 Esophageal obstruction ESOPHAGEAL OBSTRUCTION Diagnosi s 04/26/2020 11:57:00 AM [facility] R13.10 Dysphagia, unspecified DYSPHAGIA, UNSPECIFIED Diagnosi s 04/26/2020 11:57:00 AM [facility] Y92.[address] in unspeci fied non-institutional (private) residence as the place of occurrence of the external cause [facility]IDENC Diagnosis 03/22/2020 08:20:00 AM [facility] l X50.1XXA OVEREXERTION FROM PROLONGED STATIC OR AW KWARD POST OVEREXERTION FROM PROLONGED STATIC OR AWKWARD POST Diagnosis 03/22/2020 08:20:00 AM [facility] Y93.89 Activity, other specified ACTIVITY, OTHER SPECIFIED Di agnosis 03/22/2020 08:20:00 AM [facility] Z79.899 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 Diagnosis 03/22/2020 08:20:00 AM [facility] l M77.9 Enthesopathy, unspecified ENTHESOPATHY, UNSPECIFIED Di agnosis 03/22/2020 08:20:00 AM [facility] M75.81 Other shoulder lesions, right shoulder O THER SHOULDER LESIONS, RIGHT SHOULDER Diagnosis 03/22/2020 08:20:00 AM [facility] l S49.91XA Unspecified injury of right shoulder and upper arm, initial encounter UNSP INJURY OF RIGHT SHOULDER AND UPPER ARM, INIT ENCNTR Diagnosis 03/22/2020 08:20:00 AM [facility] Surgeries/Procedures Procedure Description Date Indications Data Source(s) Electrocardiogram Complete 10/05/2020 12:00:00 AM EST [facility] ([facility] Injection (SC)/(Im) 10/05/2020 12:00:00 AM EST [facility] ([facility] INJECTION 1 TENDON SHEATH/LIGAMENT APONEUROSIS 021 12:00:00 AM EST [facility] ([facility] ) RADIOLOGIC EXAM KNEE COMPLETE 4/MORE VIEWS 08/05/2020 12:00:00 AM EST [facility] ([facility] ) RADEX ANKLE COMPLETE MINIMUM 3 VIEWS 07/25/2020 12:00: 00 AM EST [facility] ([facility]) APPLICATION SHORT LEG CAST BELOW KNEE-TOE 07/08/2020 1 2:00:00 AM EST [facility] ([facility] ) RADEX ANKLE COMPLETE MINIMUM 3 VIEWS 07/08/2020 12:00: 00 AM EST [facility] ([facility] ) Electrocardiogram Complete 05/16/2020 12:00:00 AM EDT [facility] ([facility] INJECTION SINGLE TENDON ORIGIN/INSERTION 03/10/2020 12 :00:00 AM EDT [facility] ([facility]) ARTHROCENTESIS ASPIR&/INJECTION MAJOR JT/BURSA 020 12:00:00 AM EDT [facility] ([facility] ) RADEX FOOT COMPLETE MINIMUM 3 VIEWS 12/07/2019 12:00:0 0 AM EDT [facility] ([facility] ) RADIOLOGIC EXAM KNEE COMPLETE 4/MORE VIEWS 12/03/2019 12:00:00 AM EDT [facility] ([facility] ) INJECTION SINGLE TENDON ORIGIN/INSERTION 10/28/2019 12 :00:00 AM EST [facility] ([facility]) ARTHROCENTESIS ASPIR&/INJECTION MAJOR JT/BURSA 020 12:00:00 AM EST [facility] ([facility]) Results ID Date Data Source [id number] 10/09/2020 10:30:00 AM EST [facility] Name Value Range Interpretation Code Description Data Noreen rce(s) Supporting Document(s) SARS coronavirus 2 RNA Not Detected [facility] This lab was ordered by [facility] and reported by [facility]. ID Date Data Source [id number] 10/03/2020 12:05:00 PM EST [facility] ([facility] Name Value Range Interpretation Code Description Data Noreen rce(s) Supporting Document(s) Erythrocyte sedimentation rate by Westergren method 16 mm/hr 0-30 Normal (applies to non-numeric results) [facility] ID Date Data Source [id number] 10/03/2020 12:05:00 PM EST [facility] ([facility] Name Value Range Interpretation Code Description Data Noreen rce(s) Supporting Document(s) White Blood Count 4.6 10 4.0-10.0 Normal (applies to non-numeri c results) [facility] ([facility] Red Blood Count 4.47 10 4.00-5.40 Normal (applies to non-numeric results) [facility] ([facility] Hemoglobin 13.9 g/dL 12.0-15.5 Normal (applies to non-numeric resul ts) [facility] ([facility] Mean Corpuscular Volume 95.7 fl 80.0-96.0 Normal ( applies to non-numeric results) [facility] ([facility] ) Mean Corpuscular Hemoglobin 31.1 pg 27.0-33.0 Norm al (applies to non-numeric results) [facility] ([facility] ) Hematocrit 42.8 % 36.0-47.0 Normal (applies to non-numeric resul ts) [facility] ([facility] Red Cell Distribution Width 11.9 % 11.5-14.5 Norm al (applies to non-numeric results) [facility] ([facility] ) Mean Corpuscular HGB Conc 32.5 g/dL 32.0-36.5 Normal (applies to non-numeric results) [facility] ([facility] ) Platelet Count, Automated 240 10 150-450 Normal (applies to non-numeric results) [facility] ([facility] ) Lymph % 24.9 % 24.0-44.0 Normal (applies to non-numeric resul ts) [facility] ([facility] [place] % 7.4 % 0.0-5.0 Above high normal [facility] ([facility] Neutrophils % 64.8 % 36.0-66.0 Normal (applies to non-numeric re sults) [facility] ([facility] Baso % 0.7 % 0.0-1.0 Normal (applies to non-numeric resul ts) [facility] ([facility] Immature Granulocyte % 0.0 % 0-3.0 Normal (applies to non-n umeric results) [facility] ([facility] Eos % 2.2 % 0.0-3.0 Normal (applies to non-numeric resul ts) [facility] ([facility] Lymph # 1.2 10 1.5-5.0 Below low normal [facility] ( [facility] Nucleated Red Blood Cell % 0.0 % 0-0 Normal (applies to n on-numeric results) [facility] ([facility] Neutrophils # 3.0 10 1.5-8.5 Normal (applies to non-numeric re sults) [facility] ([facility] Eos # 0.1 10 0.0-0.5 Normal (applies to non-numeric resul ts) [facility] ([facility] Baso # 0.0 10 0.0-0.2 Normal (applies to non-numeric resul ts) [facility] ([facility] [place] # 0.3 10 0.0-0.8 Normal (applies to non-numeric resul ts) [facility] ([facility] ID Date Data Source [id number] 10/03/2020 12:05:00 PM EST [facility] ([facility] Name Value Range Interpretation Code Description Data Noreen rce(s) Supporting Document(s) Glucose, Fasting 107 mg/dL 70-100 Above high normal M [facility]ENT ([facility] Blood Urea Nitrogen 14 mg/dL 7-18 Normal (applies to non-nume mindy results) [facility] ([facility] Creatinine For GFR 0.64 mg/dL 0.55-1.30 Normal (applies to non -numeric results) [facility] ([facility] Glomerular Filtration Rate Laboratory test result Normal (applies to non- numeric results) [facility] ([facility] ) <content>Units are mL/min/1.73 m2</content>
<content></content>
<content>Chronic Kidney Disease Staging per NKF:</content>
<content></content>
<content>Stage I & II GFR >=60 Normal to Mildly Decreased</content>
<content>Stage III GFR 30- 59 Moderately Decreased</content>
<content>Stage IV GFR 15-29 Severely Decreased</content>
<content>Stage V GFR <15 Very Little GFR Left</content>
<content>ESRD GFR <15 on UNDERGROUND ELECTRICIAN</content>
<content></content> Chloride Level 105 meq/L 98-107 Normal (applies to non-numeric r esults) [facility] ([facility] Sodium Level 142 meq/L 136-145 Normal (applies to non-numeric res ults) [facility] ([facility] Potassium Serum 4.8 meq/L 3.5-5.1 Normal (applies to non-numeric results) [facility] ([facility] Anion Gap 5 meq/L 8-16 Below low normal [facility] ( [facility] Calcium Level 9.9 mg/dL 8.8-10.2 Normal (applies to non-numeric re sults) [facility] ([facility] Carbon Dioxide Level 32 meq/L 21-32 Normal (applies to non-num shakila results) [facility] ([facility] Alt/SGPT 24 U/L 12-78 Normal (applies to non-numeric resul ts) [facility] ([facility] Ast/Sgot 18 U/L 7-37 Normal (applies to non-numeric resul ts) [facility] ([facility] Total Protein 6.9 GM/DL 6.4-8.2 Normal (applies to non-numeric re sults) [facility] ([facility] Alkaline Phosphatase 110 U/L 45-117 Normal (applies to non-num shakila results) [facility] ([facility] Bilirubin,Total 0.6 mg/dL 0.2-1.0 Normal (applies to non-numeric results) [facility] ([facility] Albumin 3.6 GM/DL 3.2-5.2 Normal (applies to non-numeric resul ts) [facility] ([facility] Albumin/Globulin Ratio 1.1 1.2-2.2 Below low normal [facility] ([facility] ID Date Data Source [id number] 10/03/2020 12:05:00 PM EST [facility] ([facility] Name Value Range Interpretation Code Description Data Noreen rce(s) Supporting Document(s) Prothrombin Time 12.9 s 12.5-14.3 Normal (applies to non-numeric results) [facility] ([facility] Inr 0.95 Normal (applies to non-numeric resul ts) [facility] ([facility] THERAPUTIC HUMAN INR VALUES INDICATIONS NORMAL RANGES PROPHYLAXIS/TREATMENT OF: VENOUS THROMBOSIS 2.0-3.0 PULMONARY EMBOLISM 2.0-3.0 PREVENTION OF SYSTEMIC EMBOLISM FROM: TISSUE HEART VALVES 2.0-3.0 ACUTE MYOCARDIAL INFARCTION 2.0-3.0 VALVULAR HEART DISEASE 2.0-3.0 ATRIAL FIBRILLATION 2.0-3.0 MECHANICAL VALVES(HIGH RISK) 2.5-3.5 RECURRENT MYOCARDIAL INFARCTION 2.5-3.5 ID Date Data Source [id number] 10/03/2020 12:05:00 PM EST [facility] ([facility]) Name Value Range Interpretation Code Description Data Noreen rce(s) Supporting Document(s) Erythrocyte sedimentation rate by Westergren method 16 mm/hr 0-30 [facility] ([facility]) ID Date Data Source [id number] 10/03/2020 12:05:00 PM EST [facility] ([facility]) Name Value Range Interpretation Code Description Data Noreen e(s) Supporting Document(s) White Blood Count 4.6 10 4.0-10.0 [facility] ([facility]) Red Blood Count 4.47 10 4.00-5.40 [facility] ([facility]) Hemoglobin 13.9 g/dL 12.0-15.5 [facility] ([facility]) Hematocrit 42.8 % 36.0-47.0 [facility] ([facility]) Mean Corpuscular HGB Conc 32.5 g/dL 32.0-36.5 [facility] ([facility]) Mean Corpuscular Hemoglobin 31.1 pg 27.0-33.0 [facility] ([facility]) Mean Corpuscular Volume 95.7 fl 80.0-96.0 M EDENT ([facility]) Red Cell Distribution Width 11.9 % 11.5-14.5 [facility] ([facility]) Neutrophils % 64.8 % 36.0-66.0 [facility] Platelet Count, Automated 240 10 150-450 [facility] ([facility]) Lymph % 24.9 % 24.0-44.0 [facility] ([facility]) [place] % 7.4 % 0.0-5.0 [facility] Baso % 0.7 % 0.0-1.0 [facility] Eos % 2.2 % 0.0-3.0 [facility] Immature Granulocyte % 0.0 % 0-3.0 [facility] ([facility]) Nucleated Red Blood Cell % 0.0 % 0-0 [facility] ([facility]) Neutrophils # 3.0 10 1.5-8.5 [facility] ([facility]) [place] # 0.3 10 0.0-0.8 [facility] ([facility]) Eos # 0.1 10 0.0-0.5 [facility] ([facility]) Lymph # 1.2 10 1.5-5.0 [facility] ([facility]) Baso # 0.0 10 0.0-0.2 [facility] ([facility]) ID Date Data Source [id number] 10/03/2020 12:05:00 PM EST [facility] ([facility]) Name Value Range Interpretation Code Description Data Noreen rce(s) Supporting Document(s) Glucose, Fasting 107 mg/dL 70-100 [facility] ([facility]) Blood Urea Nitrogen 14 mg/dL 7-18 [facility] ([facility]) Glomerular Filtration Rate Laboratory test result [facility] ([facility]) <content>Units are mL/min/1.73 m2</content>
<content></content>
<content>Chronic Kidney Disease Staging per NKF:</content>
<content></content>
<content>Stage I & II GFR >=60 Normal to Mildly Decreased</content>
<content>Stage III GFR 30- 59 Moderately Decreased</content>
<content>Stage IV GFR 15-29 Severely Decreased</content>
<content>Stage V GFR <15 Very Little GFR Left</content>
<content>ESRD GFR <15 on UNDERGROUND ELECTRICIAN</content>
<content></content> Creatinine For GFR 0.64 mg/dL 0.55-1.30 [facility] ([facility]) Potassium Serum 4.8 meq/L 3.5-5.1 [facility] ([facility]) Chloride Level 105 meq/L 98-107 [facility] ([facility]) Sodium Level 142 meq/L 136-145 [facility] ([facility]) Anion Gap 5 meq/L 8-16 [facility] ([facility]) Carbon Dioxide Level 32 meq/L 21-32 [facility] ([facility]) Calcium Level 9.9 mg/dL 8.8-10.2 [facility] ([facility]) Alt/SGPT 24 U/L 12-78 [facility] ([facility]) Ast/Sgot 18 U/L 7-37 [facility] ([facility]) Alkaline Phosphatase 110 U/L 45-117 [facility] Bilirubin,Total 0.6 mg/dL 0.2-1.0 [facility] ([facility]) Albumin 3.6 GM/DL 3.2-5.2 [facility] ([facility]) Total Protein 6.9 GM/DL 6.4-8.2 [facility] ([facility]) Albumin/Globulin Ratio 1.1 1.2-2.2 [facility] ([facility]) ID Date Data Source [id number] 10/03/2020 12:05:00 PM EST [facility] ([facility]) Name Value Range Interpretation Code Description Data Noreen rce(s) Supporting Document(s) Prothrombin Time 12.9 s 12.5-14.3 [facility] ([facility]) Inr 0.95 [facility] ([facility]) THERAPUTIC HUMAN INR VALUES INDICATIONS NORMAL RANGES PROPHYLAXIS/TREATMENT OF: VENOUS THROMBOSIS 2.0-3.0 PULMONARY EMBOLISM 2.0-3.0 PREVENTION OF SYSTEMIC EMBOLISM FROM: TISSUE HEART VALVES 2.0-3.0 ACUTE MYOCARDIAL INFARCTION 2.0-3.0 VALVULAR HEART DISEASE 2.0-3.0 ATRIAL FIBRILLATION 2.0-3.0 MECHANICAL VALVES(HIGH RISK) 2.5-3.5 RECURRENT MYOCARDIAL INFARCTION 2.5-3.5 ID Date Data Source [id number] 09/23/2020 01:27:00 PM EST [facility] ([facility]) Name Value Range Interpretation Code Description Data Noreen rce(s) Supporting Document(s) Erythrocyte sedimentation rate by Westergren method Laboratory test result [facility] ([facility]) ID Date Data Source [id number] 09/23/2020 01:25:00 PM EST [facility] ([facility]) Name Value Range Interpretation Code Description Data Noreen rce(s) Supporting Document(s) Chest x-ray Laboratory test result MEDEN T ([facility]) ID Date Data Source [id number] 09/15/2020 09:26:00 AM EST [facility] ([facility] Name Value Range Interpretation Code Description Data Noreen rce(s) Supporting Document(s) Cancer Ag 15-3 [Units/volume] in Serum or Plasma 2.1 U/ML Normal (applies to non-numeric results) [facility] ([facility]) THE CA 15-3 ASSAY IS PERFORMED ON THE [employer] BY CHEMILUMINESCENCE AND SHOULD NOT BE COMPARED INTERCHANGEABLY WITH OTHER METHODS. IT SHOULD NOT BE USED ALONE A SCREENING TEST OR DIAGNOSIS FOR THE PRESENCE OR ABSENCE OF MALIGNANT DISEASE. PREDICTIONS OF DISEASE RECURRENCE SHOULD NOT BE BASED SOLELY ON VALUES OBTAINED FROM SERIAL PATIENT SERUM VALUES. Carcinoembryonic Ag [Mass/volume] in Serum or Plasma 1.1 ng/mL Normal (applies to non-numeric results) MEDDANIELLA ([facility] THE CEA ASSAY IS PERFORMED ON THE [employer] BY CHEMILUMINESCENCE AND SHOULD NOT BE COMPARED INTERCHANGEABLY WITH OTHER METHODS. IT SHOULD NOT BE USED ALONE A SCREENING TEST OR DIAGNOSIS FOR THE PRESENCE OR ABSENCE OF MALIGNANT DISEASE. PREDICTIONS OF DISEASE RECURRENCE SHOULD NOT BE BASED SOLELY ON VALUES OBTAINED FROM SERIAL PATIENT SERUM VALUES. ID Date Data Source [id number] 09/15/2020 09:26:00 AM EST EVELYN ([facility] Name Value Range Interpretation Code Description Data Noreen rce(s) Supporting Document(s) Glucose, Fasting 108 mg/dL 70-100 Above high normal M EDDANIELLA ([facility] Blood Urea Nitrogen 12 mg/dL 7-18 Normal (applies to non-nume mindy results) EVELYN ([facility] Creatinine For GFR 0.66 mg/dL 0.55-1.30 Normal (applies to non -numeric results) [facility] ([facility] Glomerular Filtration Rate Laboratory test result Normal (applies to non- numeric results) [facility] ([facility] ) <content>Units are mL/min/1.73 m2</content>
<content></content>
<content>Chronic Kidney Disease Staging per NKF:</content>
<content></content>
<content>Stage I & II GFR >=60 Normal to Mildly Decreased</content>
<content>Stage III GFR 30- 59 Moderately Decreased</content>
<content>Stage IV GFR 15-29 Severely Decreased</content>
<content>Stage V GFR <15 Very Little GFR Left</content>
<content>ESRD GFR <15 on UNDERGROUND ELECTRICIAN</content>
<content></content> Sodium Level 142 meq/L 136-145 Normal (applies to non-numeric res ults) [facility] ([facility] Potassium Serum 4.1 meq/L 3.5-5.1 Normal (applies to non-numeric results) [facility] ([facility] Chloride Level 106 meq/L 98-107 Normal (applies to non-numeric r esults) [facility] ([facility] Carbon Dioxide Level 32 meq/L 21-32 Normal (applies to non-num shakila results) [facility] ([facility] Calcium Level 9.3 mg/dL 8.8-10.2 Normal (applies to non-numeric re sults) [facility] ([facility] Anion Gap 4 meq/L 8-16 Below low normal [facility] ( [facility] Ast/Sgot 18 U/L 7-37 Normal (applies to non-numeric resul ts) [facility] ([facility] Alt/SGPT 26 U/L 12-78 Normal (applies to non-numeric resul ts) [facility] ([facility] Bilirubin,Total 0.5 mg/dL 0.2-1.0 Normal (applies to non-numeric results) [facility] ([facility] Alkaline Phosphatase 123 U/L 45-117 Above high normal [facility] ([facility] Total Protein 6.7 GM/DL 6.4-8.2 Normal (applies to non-numeric re sults) [facility] ([facility] Albumin 3.6 GM/DL 3.2-5.2 Normal (applies to non-numeric resul ts) [facility] ([facility] Albumin/Globulin Ratio 1.2 1.2-2.2 Normal (applies to non-n umeric results) [facility] ([facility] ID Date Data Source [id number] 09/15/2020 09:26:00 AM EST [facility] ([facility] Name Value Range Interpretation Code Description Data Noreen rce(s) Supporting Document(s) Red Blood Count 4.34 10 4.00-5.40 Normal (applies to non-numeric results) [facility] ([facility] White Blood Count 4.1 10 4.0-10.0 Normal (applies to non-numeri c results) [facility] ([facility] Hemoglobin 13.4 g/dL 12.0-15.5 Normal (applies to non-numeric resul ts) [facility] ([facility] Mean Corpuscular Volume 95.9 fl 80.0-96.0 Normal ( applies to non-numeric results) [facility] ([facility] ) Hematocrit 41.6 % 36.0-47.0 Normal (applies to non-numeric resul ts) [facility] ([facility] Mean Corpuscular HGB Conc 32.2 g/dL 32.0-36.5 Normal (applies to non-numeric results) [facility] ([facility] ) Mean Corpuscular Hemoglobin 30.9 pg 27.0-33.0 Norm al (applies to non-numeric results) [facility] ([facility] ) Neutrophils % 48.8 % 36.0-66.0 Normal (applies to non-numeric re sults) [facility] ([facility] Platelet Count, Automated 233 10 150-450 Normal (applies to non-numeric results) [facility] ([facility] ) Red Cell Distribution Width 12.0 % 11.5-14.5 Norm al (applies to non-numeric results) [facility] ([facility] ) [place] % 10.4 % 0.0-5.0 Above high normal [facility] ([facility] Eos % 4.3 % 0.0-3.0 Above high normal [facility] ([facility] Lymph % 35.3 % 24.0-44.0 Normal (applies to non-numeric resul ts) [facility] ([facility] Baso % 1.0 % 0.0-1.0 Normal (applies to non-numeric resul ts) [facility] ([facility] Immature Granulocyte % 0.2 % 0-3.0 Normal (applies to non-n umeric results) [facility] ([facility] Nucleated Red Blood Cell % 0.0 % 0-0 Normal (applies to n on-numeric results) [facility] ([facility] Neutrophils # 2.0 10 1.5-8.5 Normal (applies to non-numeric re sults) [facility] ([facility] Lymph # 1.5 10 1.5-5.0 Normal (applies to non-numeric resul ts) [facility] ([facility] [place] # 0.4 10 0.0-0.8 Normal (applies to non-numeric resul ts) [facility] ([facility] Eos # 0.2 10 0.0-0.5 Normal (applies to non-numeric resul ts) [facility] ([facility] Baso # 0.0 10 0.0-0.2 Normal (applies to non-numeric resul ts) [facility] ([facility] ID Date Data Source [id number] 09/14/2020 09:15:00 AM EST [facility] Name Value Range Interpretation Code Description Data Noreen rce(s) Supporting Document(s) E[facility] LVUXEk2tMtUBOiAkYEAoNtpVFZtkOJcrGQAxQ0V1EPtbBb1LRUcrqeFpOUWjDn2+RNHmNL2uww4dDIOp gMy 0rNUIkElulE1JlHMUbg59BRLTkZMeCTpRgMyFhVYGxZOE2UCJ9WNL1AdCrNrokEY8mVQG4ZXEiPXtiKA JtUHPkXwEjRQOzNQ7pZUamSMlvPb1OVM4xd2PwRZErSGLbNasLZNffHKpdDWZgPCAfXHPcX079kgSzUb 8NsOCyNLx2EETvMnA1FRQnSvD3UBTyWv3xWqGsr4No L2WrTKk1R4iFGbqwZ1BiQFquIT9xNVT1VNRcTi5LzGaqHDxyHPBHX0chKxLvNLGyMXVMLl3+Pj4+DWVu YW4nln58KJVqk6HhFBb6B2Q7dULmF6QmD9VxQCVdmICTz2erMeDgDTC9WLMaYgrtJY2KZKPlaYTeVPMq DSnfOC7rfyHndOB1JS0SgAzyTPOrCZYTFa3+Pi9QYX NvgzBwYfSnFEQbQ73ttSRpyJWsTbitWKPXXU6+PVBhJB0mgb90ELStp6OpDKe5R1kjakp3vWIkSLR4MG NoJlCiOZVsBA8oJY9TsDW2pMZsYC5VzQKlEN2LcYJyON5SO6FlOSZ3M1BhbCEeraPyC4ToTYXbPCAfv3 WxHM3NC2MGJGZaPXNwX9NbeF9fU1DdT6TzG3Qsssvm CTXSTv2VlHU8sSNxWBYlL8twbUeedVLnDQoeR9VqkLZGPTLPj20is48ciiJaER3+i9YtOZOkQMe21wv7 ZVAcX/ozSMXGIzh6HUbrEXYfZfTMjw2vA6kiJlS0EJz4OiaxaHK9O7ySqDCA2//oggd5ziz9mt/eD+/z 5ABLwt1+h9ux5hEs7gBx7KHRABlhUZFFkUTGRWBQ96 seoIm5GTptzRemzQbA+GKyZPLXuUXxg2jB5U5Xv2CWsaOhWpY25+Ws7dlq9cnu1nOs5+Lm/YdlVV8ow7 ZHQyfGwCDmfEv+lvP/ZM81NOaioKsbjaZHRnHPRuUJE+QlE1JXPNGbUagTHA3qVXbNDsKkj4Kjp0Z1UA CPDXiFAAS+QgQiISEi/u31+pyQNHQWih6U1UMIF5iZ [file] Juan M+i79CXPRRx3Q+4dYw17wRSG/Tbu6Zg/cKFv/5fh [file] gGrbSk/WeUWNUGU9YmbcEx2++Jean-Claude/CUXG79fX92GZMNS6zghMdwkyVv84l6bZbGn8DQISApQyR/qZK7 [file] rHkOHATptdWj6NEsHGBGLTb1BF/LR+N5R2UjE2S pbA/XxHD0ZW7z0rmGC9lnxAXbmK/d7MtuDuaJQJQUBBtefOcsrOTa6SsnWoK6ECBXwsMezsi/0hLGk3u eSrljv9nPF1wjgcJyalPGmtith3HdbO3Zb1lglrjXPwPceZYWKGkMkgoC/3nhKf6I5H52o0Dzusi3ZMu /RRtBAI+cfGaDWJDuemgNBpgnEORGylVcactnbQbym [file] Level Web Developer/8RLPOFqHQwXb2ZUvNjOiOlBUUqC0j5iQHVsmneKj [file] Ifq0O8k230JCbL0259BAt0iVD8pSndM4l8NkLwv9r9 0B54zs7q58cmkLuVbLvXh9Y2GCPQhw11x7BpT7yEn3las1o3t3UmwOJQo/7pYKr71m55fEf1byD+rKH6 mG/Y9/Djs5voGe+q++ESpofwQs+PMHifmCwQQDFki4Ho7UuK5Ipj/IYP681Qglixmd5IzALJ/DW+9wiZ odsWflAId7lAug4cR1hTlTiISO6/ElcllJyoYAUdVT +c+7ypjLI0g3TEz/wTnzzWE1kLsR3wPo+xBa2fDsSx173y8lcQQObbS+L7yPpiBjnUs0GPKy84psG86G KoDynzoLkaD81r9ZA+togWw2ROfOv/D2bWrIviwjyh7tWZHgS8WObyHUYR+fP9mYt2ODA8USkWuTd/Ch UC1ehEjR/8xKMzBFg97AcxtuJQOIuBF8PalA1/wPoh 72UjbOeINfxqO1cPz6zJzzqw0mA6UeZOlu7Tg0tGJoF0vMzcVhkT1BM2qZ/8EqYGqFhX17sWZOeTYToE QZ+nnpTQ2hAW6tniOK+AhA101NlxykcvFFw0zeexbkpcP0w7irng881cD54h58n69xrsx5OJjvpdDcBs z/Nl8L73fKCOSdn3c4xsaShctx/gRmrsLIPTFBs6g/ o2wLh8x65R+yootmA0gDd4JYXzq8SORuzmrLrTPwZLuCs+ia14uDRMn/WucYdDSSNR6quJgpiRlQGeml wuVE5CNrnthzFJyQBbEzki2cGRfApojESJZVCbLl+GPCa1m/guest services coordinator+epbhW3m8ediSnSUxmH1yAh0aoWDV [file] nonprofit manager/cSACIgKyL41tC8DcPrWI1kbf16VksXY8kNFDOJ 7Z6+jv0/oZmPbQsMwqKyqf84pnCs+hwumwkw7ccY1BCspm4C90KQ8zsGJCKDSkJ0MCm6GbGNQcB9UtUG 46KLWlZyb26vM90qu2S2TTj9rEm5IrBj0mRF3X0jVkpZmnBqRCpqtijCNJQgJeReKHXaxByK766VzyvW +8gH5TR3b7WfWeFTdvZXDuVYoTThxHylG3T3luvKI+ 7IFzf4ruKREuWEWuziVdVI0fSVOaUCPMM22cdCm/4VP21o/P0kYrIKI6fnQ3ckZEFDzN6hPeLvQTdTzq uM5ggkwN210Zv2aai/UHETv1CoQePrm2Rd/mt5H+A4/CaPmzf/7uHJd4gCGwuMtdrC9xY8nVB8gmCoWb 8Eex63GYpLED0UrnzGLkVSjUSLSalMWdubg8jxXHAY K86GgGCNAv9p2g+EEaLSBIdMX+zxcffh2BGl94f1PxyDjNb7+ZIv3h+HknsZmJEXk1XfufieQXDyxDBB 0r9LdsqUmQufWD8pOK8YqZT/wgoWCST0ulnMH10zaM8h3l1QjCCeqdIC+wm3KROJOwz9De2/3UI0evJp wA0rbTbQYR6FiW2BSzXYza0g8zNevqMUJPssNrbLDC xA+0bthmdxeDOOfPPks8gu+tSnlp+u1TqD6e11DBGgAH/rI6cJx6d7F7+qrqm2DWLw8xYGIcLzi8l77p 9C/fyuK/JVn2gTTxVoApPimmuOY3GBdk61j98FnjcuKsCEY4O2PHgYAsl57KbVxGy8+Colleen+e8iwM8kfU 2z7eOzcPzGcuQ9CFp2564QhC9UR5m83bY36I438ZjF [file] 8yUKubaAXMsoeM2G9sKmHTaqTjA/SENIOR RESEARCH PROJECT MANAGER/wklaY0l0ZKx84rpQttyCRkmWMN6584Vqz0Yy7r/imS64irK9 [file] VGk2S+yarn dry room worker+wL0ffPRbniCBKeok2prEAboSCLDP+DbvD0Tan8r3euXC4tk1lsndGdQx/7V0Ozaa3Hsg7m [file] iSzz95PzSo8u7tSaCu/slip feeder/ft4d77IDkO/lfxfqZOZV [file] marine specialist/PDLoZiA9gNmYT+yV70HIZfnTONLjIZMOPDuQrW [file] [facility]+wwgayV7HNT6k1Z7RenJ/vQ6lR4jwzG4CbAfMEuE9apyreE5uH9oArb95Ci133H3DcsI0tbexYb [file] piece checker u8JapbnledRkaE2lf/hZRvjWuV2DqeBt0EaSVldG8zQ0FaeEjPdmvnyKD8X1YYYfRSirjMHiqECgL+OY gUsmutBnfSiwiOn/gJz1QbsicqwQycb3npFOoCMYoS2mAfb/200L3JMY7/Mog1tr2ZOd8gig+gA+TGQY lTa9iT9u6RU5p+5jt7+9nPg/23O3bFJT4iEzwWrQJu G0IhMhRP8RqFODsceS2Xlz23I1LL56PvidPkaC2UqptQcezEYeHCO2uxB3dUu6E+CHa9kwktF4Q7k9Gx ViCgtdc8G871n1hxWnourk9tJvAD2KI/H3ud+Jx4Pi9AcTHiDCH0etrVegsGTo8E1ambmqawzEkEXfW0 DhDga/TAkYD6Kp0Jypitf38xSjro/Delia/YlrJEiqQQ [file] CYBER FORENSIC SPECIALIST+byNDK0Lty84gWQKSDNh31Ce2uomVRgc70IDqRwA3Hp8LmN5d7URalNfMopYqUsO8W35RjepLttcEp [file] oD6i78Nj454vtNZ8t2h0msQ+s783u1EKKBeO91ue+m q+e7qAXsW15EOUtKCXZzVmymel5v5d5y2neSh4Mz3dfWRl8sxfpFAFjYaz2svtr8hfOe/+Qgv17GgVTw DdhllvQgwQ5OFzhnUYMgcGDj0iwnsHRC7BeBHvik71TTzr9qoYe/44/6w/5UJaPjNhlR2DqLLK1kZkP+ qakY5V0q2wLGNgO/hx5LiEg/n3NB90sd/bfBIQCJ8K l0p0jD465OkjfMHrbXwHceTNqV4uKiiKm5hma4/1Me0l73XRy41azHQ7d/O1kiMGimRJvPoYDFXJLoLX /5RbYF00am3IMVt/aqkvBokNsYjmTZbU9PoT0O8DycNkc+D6gf3M/arubLa5n3fiRUYZ4Fu3j+vpu96o UKiwNTemJmnCbtC4f7gddHFjLM6prQkY4XAHmNVUfo tSbmP+SgL8UjAn3IjSPE70Wx6zGLU1zlKB6tZBlHg1m8Gec/QzBNIcN8VGomcwGjdZLdVI4KJI4sf9Et GVTdDKLjn1RmDRu6G4pueeu5hVDgVL2+f5WjXSUsOCmtNoKhXuTuLHBdMoqkNXWvJAIrvAaiFA9uZwJT bwgQJStvxmVomYJwIH3BIA3pm3CpYZChQUGuo8PyUV v7K2OgcYHtfjRaYcgovJTPJCBjIUNqQAArC2XvLRSsC7pCONk6SPLuToRlMIWnAHKdHOhIWfC9A2GpZB u6QIB6GoE2R5N+JJb4JhP3DLX2UlT2NHSyKWSXGeXDTmDUMRKPSnbhCtyVAZ5bF1Aeq0UgJDClRRMeAY 9gwuGyKDPsXc0UoHokIQV9Y6Q1nQBvG9lHQRJyLmBk ZPQ9MTAcBl0idUHuJU1DTxtqP0MgQKDgYHIOBHHXKax+BJGMBWDyNZBkPpwNJp+DyCPmQJJjhTOYPAAi PteLWy9266IbhpWETGMVL2mROxKxSJZ9nbFkhY3FWM7ys3PjDR1Gn7LuagN7shBgWOu4BfZ2LfJHGbMp RU9G ID Date Data Source [id number] 09/09/2020 12:36:00 PM EST [facility] Name Value Range Interpretation Code Description Data Noreen rce(s) Supporting Document(s) SARS coronavirus 2 RNA Not Detected [facility] This lab was ordered by [facility] and reported by [facility]. ID Date Data Source [id number] 08/12/2020 07:20:00 AM EST [facility] ([facility] ) Name Value Range Interpretation Code Description Data Noreen rce(s) Supporting Document(s) White Blood Count 3.7 10 4.0-10.0 Below low normal M [facility] Hemoglobin 13.4 g/dL 12.0-15.5 Normal (applies to non-numeric resul ts) [facility] ([facility]) Red Blood Count 4.26 10 4.00-5.40 Normal (applies to non-numeric results) [facility] ([facility]) Mean Corpuscular Hemoglobin 31.5 pg 27.0-33.0 Norm al (applies to non-numeric results) [facility] ([facility]) Mean Corpuscular Volume 97.9 fl 80.0-96.0 Above high normal [facility] ([facility]) Hematocrit 41.7 % 36.0-47.0 Normal (applies to non-numeric resul ts) [facility] ([facility]) Red Cell Distribution Width 12.0 % 11.5-14.5 Norm al (applies to non-numeric results) [facility] ([facility]) Mean Corpuscular HGB Conc 32.1 g/dL 32.0-36.5 Normal (applies to non-numeric results) [facility] ([facility]) Platelet Count, Automated 247 10 150-450 Normal (applies to non-numeric results) [facility] ([facility]) Nucleated Red Blood Cell % 0.0 % 0-0 Normal (applies to n on-numeric results) [facility] ([facility]) ID Date Data Source [id number] 08/12/2020 07:20:00 AM EST [facility] ([facility] Name Value Range Interpretation Code Description Data Noreen rce(s) Supporting Document(s) Red Blood Count 4.26 10 4.00-5.40 Normal (applies to non-numeric results) [facility] ([facility] White Blood Count 3.7 10 4.0-10.0 Below low normal M [facility] ([facility] Mean Corpuscular Volume 97.9 fl 80.0-96.0 Above high normal [facility] ([facility] Hemoglobin 13.4 g/dL 12.0-15.5 Normal (applies to non-numeric resul ts) [facility] ([facility] Hematocrit 41.7 % 36.0-47.0 Normal (applies to non-numeric resul ts) [facility] ([facility] Mean Corpuscular HGB Conc 32.1 g/dL 32.0-36.5 Normal (applies to non-numeric results) [facility] ([facility] Mean Corpuscular Hemoglobin 31.5 pg 27.0-33.0 Norm al (applies to non-numeric results) [facility] ([facility] ) Red Cell Distribution Width 12.0 % 11.5-14.5 Norm al (applies to non-numeric results) [facility] ([facility] ) Platelet Count, Automated 247 10 150-450 Normal (applies to non-numeric results) [facility] ([facility] ) Nucleated Red Blood Cell % 0.0 % 0-0 Normal (applies to n on-numeric results) [facility] ([facility] ID Date Data Source [id number] 08/11/2020 09:27:00 AM EST [facility] ([facility] Name Value Range Interpretation Code Description Data Noreen rce(s) Supporting Document(s) White Blood Count 3.9 10 4.0-10.0 Below low normal M [facility] ([facility] Hematocrit 41.5 % 36.0-47.0 Normal (applies to non-numeric resul ts) [facility] ([facility] Red Blood Count 4.26 10 4.00-5.40 Normal (applies to non-numeric results) [facility] ([facility] Hemoglobin 13.4 g/dL 12.0-15.5 Normal (applies to non-numeric resul ts) [facility] ([facility] Mean Corpuscular HGB Conc 32.3 g/dL 32.0-36.5 Normal (applies to non-numeric results) [facility] ([facility] ) Mean Corpuscular Volume 97.4 fl 80.0-96.0 Above high normal [facility] ([facility] Mean Corpuscular Hemoglobin 31.5 pg 27.0-33.0 Norm al (applies to non-numeric results) [facility] ([facility] ) Neutrophils % 52.1 % 36.0-66.0 Normal (applies to non-numeric re sults) [facility] ([facility] Platelet Count, Automated 250 10 150-450 Normal (applies to non-numeric results) [facility] ([facility] ) Red Cell Distribution Width 12.1 % 11.5-14.5 Norm al (applies to non-numeric results) [facility] ([facility] ) Lymph % 33.5 % 24.0-44.0 Normal (applies to non-numeric resul ts) [facility] ([facility] Eos % 4.2 % 0.0-3.0 Above high normal [facility] ([facility] [place] % 9.1 % 0.0-5.0 Above high normal [facility] ([facility] Nucleated Red Blood Cell % 0.0 % 0-0 Normal (applies to n on-numeric results) [facility] ([facility] Baso % 0.8 % 0.0-1.0 Normal (applies to non-numeric resul ts) [facility] ([facility] Immature Granulocyte % 0.3 % 0-3.0 Normal (applies to non-n umeric results) [facility] ([facility] [place] # 0.4 10 0.0-0.8 Normal (applies to non-numeric resul ts) [facility] ([facility] Lymph # 1.3 10 1.5-5.0 Below low normal [facility] ( [facility] Neutrophils # 2.0 10 1.5-8.5 Normal (applies to non-numeric re sults) [facility] ([facility] Eos # 0.2 10 0.0-0.5 Normal (applies to non-numeric resul ts) [facility] ([facility] Baso # 0.0 10 0.0-0.2 Normal (applies to non-numeric resul ts) [facility] ([facility] ID Date Data Source [id number] 08/07/2020 09:00:00 AM EST [facility] Name Value Range Interpretation Code Description Data Noreen rce(s) Supporting Document(s) SARS coronavirus 2 RNA [facility] This lab was ordered by [facility] and reported by [facility]. ID Date Data Source [id number] 07/19/2020 09:30:00 AM EST [facility] Name Value Range Interpretation Code Description Data Noreen rce(s) Supporting Document(s) Follow Up [facility] DQIRMo7qFnZAQcZhVNFlYztCKQreMMejJIWbS4O1WGbxHc2LTPwvqaQkANTfFy7+CNWkHL5txg7mEVAj gMy [file] 2N9bz+Maria Ines+mp5lr00pTjZ8UEZAIoPAlKBOqZPt47F2 [file] oO2iXzCuEkE/slip feeder/6t8zuonUr5lI5qJ/RtVZBNu90tlP8gAm9MMzL7Xczk1nJ7V2RdfXK+QP/KqljuSxn [file] n72giEsnGRAHDUgWNqB2q9uO96xxVfj0yBxCBrAUsH/rYXJG9OP72q7iYwTf8I/Nz2IFRjTJN9X5+chief operator synthesis [file] hk9zb1URozcDHc44mBuqAugftEWDRlqBoZpxOcaDc2pB34nI1ItlEobDI7tIrrhQnkrBu0W/medical office assistant+lUuY [file] j+wr113yPNlJ6UwHaHr7eotZhx+le0PWOiTIBy/printing plate clerk+0/1/WhFHlrMf7h1BWeaipW3eggePG33o8+PPo fctqHweS2+4VWz34XSqwG36ECAo3cqlZ6a0x2OGrl8 mNOV91ICfshWpa08ZM8JPlQBVECMQgi10ybKT2pTCUj7Ze/B0RFD9eTWSehutzUZ0gBb1dlILSw20re9 2FscsFGQ6f7ktE4W8iY1qq+qel/QukyUMJ8BDCWQ2cCZE0M6QHCPJbiDwDz19QUmuX/n0FSW+cny5T41 KGZhK6FbYfL6/Mn+9x860G1LkRMVZalED8ySHtQ4kI f1s6SQPGNGvrgOnShrH5UYijXTrdvUX5lUmgedaxmS52octqbYOPG4Lqx+j5Q/YyKOh4yPQXMRJ6+4Zw X2AOKjkiEx5aWRdIMAHSjnA9PcB5lt670Kh5KV4g7/DOZdBwaZhjJkmPEAEwXTDL72vWDqODQHbikc9H C7dQD6bzZ8/dmxqTWqKod8sZas+PybakrvLnLce09a DUuFr1Fteik/H5UpwAB+jC145Fs4xURbLZ067MU2DHY9rjN+4zRjLOVdO9SehpTo/Zu6fDEFrKoiet5K z4u/A8PebY2ApQBLkW026KI3HIhnj/ZTwTcQu+etr1uf12iStLZl6ikqR0a6ZcliGEHLaFhgu61BonRg 5oPzYmhCffOfWeGPs24Of0Ci5PYO3oblJix/n9PKo8 AHQ1RKKcrAXXLkKYzDB4qO+KDsw8hoff9drCeE8KaeOAtQv4LbTua+/S2NdaXXLuTnH2K3w4uwfU8D+U hhMEDlqDpl+cyYxM+burdick+C3VcED2oYGNqtEZD3FExE9VNf9d+3pGjUfede9S8NBbr4cqFuSuExHFoBttz [file] g35swV3st1FZ63BCz7F5ocRK+5u2a7kmI013pZoUu/tax senior associate+p//8zmPgAWHI0+u26lG49wPZf3yi3sprW9 [file] tfYDP+SMDKJOHvYbKj/AVQSu/Entry Level Web Developer/VjBijbEa+0YKpJ [file] S563tfK8LntD/1Eb3v+mNm3/timers inspector+/np34rAC/5OJG7 nRQF+VRUXenEgdgBBwRKlt168o0MGvIRPMgMMYVNxAqxr0aCxmnvrn4guqnkba7Xd7mNE0mRB2wU2UF/ YAVIOLAho/JFr9FUxXoa760s2zOJF2jNZo6X7y5R1NN7IH6DoHPXQWJ0oZmWZUKrNZ1hr6nq1RCUYNxSHE5 [file] slip feeder+4cawzT2SAC9pL2Pw7Aymm7hTg5WBO+DHRUkIz53 [file] 8+CYBER FORENSIC SPECIALIST/Dx2CzuhYONYl3/Yvfwpt+KX9bx0/4l2tEHD0nVkFJsgYPUvl1ZdYKZULv7+UQ+Atrf65aAMPV/7 [file] h3AylDih4jkasoo5Af2dtlacWxNgexh4MY/yzfxusS m0b2npokyrbOH9sinIAAZWvyzKu48jhHXKH/ZJsHRO9v4ZWzIpAE0OHa32veu1N24bWJi7/lLpnEBNJa gOdEtjePuQCS1UpLhs6E5gqyjlTQFEumYVG0HQRPyI2e9ZvVjrdVZferGEma/PIvA6022EnNlhwv5iyl Fy4fzyZOBi8Rwg/dsHQo9YiJO4ypTxSqLGmb3FQfW9 /nxWxDfokleOuXqL/8Rd5+dSWIbPavsAESxzRPZ2wBMPTBprcS+RjN22YaGZdgocYe3No/tJTrxb/LOP r3xB1KDSTZukFdmv7JUPTGn8CnHuvDZibK8LUzWyjGZ9ZqnrTeg45b3yXzERAD1RpyVphxu2Dg5+UhmT uU5DNs3myi288rm+2gbd0p84mcGyHGfC52r14QnNry semiconductor assembler+8NTpHgYf/9RTp0csoQYS/1228X9pe56sg5F5oziV3gkplgX3jbf87qBMNw9+isjir0ZmFyvnEF/m [file] slip feeder+vEoaq7MnuZfJ0wj/BzLE8zXZK+4SIAWEhrUfwIn [file] HEWPuBL1USojjN0MKaKLOJmwWDvJPLf3pjN/Shay/r/W1f8D/wq7PLLamo5U8hM+MwjGdOFsEFbQoWL+C8 bHLdziWc7b1A20oslo5PsOUEjcq0kpldtgM9ieKwFFD6ssrgbLu9ig2WC6bQjrIo9oNvM9hGoMVyIwtE 1pp9qTk6OEnbbPiWLz6NWGPhp2mwtyqeIZ4zGxhOYl /kxcrswVqT6+MrriNtFduzi9ihBNNgGz9Bw4fcj6EON07s5YMfkthgs7kR9L4S7IdMR/g+eFd+oz8ZhE ZiXGpKLOfX8xLq/G5btNi6G0lyaKdyX8lSyPSGuypVoxKYAnFUE5RNUlbrcEHKxcsOSd6tEYEUl8Rq42 96kBJjbX9YWhTr1ouQRj5odUXuGE3Sc4XaGvMUu1O5 kT+rry5+DTgybezyup0gv9JvlJLlt9c5nj6mz1mLOFWzvfe9cDzcQAeOj5LNzie1YRya/UPQN+Ctlmc2 ivvXtP58sTpzD8IkhrH+3pv6E12GLGcIbVFcqruXogQAPr+Zo5IspyXvNBH/rSB4ZnfgK3bB8/r1PdCv QOiew1c5fgJMq9pJSUU4dJcCjiPmILG7uVOXxCbYPA C/isSJrCunr390V4lDA2kTp3EKt9LD2RyLn2FIarnQwOLMgYOIJG4xwi/TY8Q1Gu7F8ZSayoOOE0pshr W9gTFAfjmDVftaWNeu681iZfpYYN+YfL8/Deck Scaler/2EpsGhvwHn7N+dBRlicbRnj5BY3sDMKTcAzqCASMFX I7pParq+ZFMRsuufXRooqs1JCUJxNqpe/IR5hUY1ZS Md4OWoVepW0GMq+LRveXgeY4jHfvhuxt4EtL//C9NTQktg6JCA7giuxUTOdAalz2CF3s8aqSBNl+aUuW EQmeqhZQ8XIrkDOye4q10mcOEcf2ziWC/tifew/2I1gWAAsSRb5XsiEJ2ziFzUUaQ8Z5h53okAA61ewR RbAMHu3BCs01Bb0EXxbdHJ3EUWP0EP1ZBV7ouLWD64 1rihvpPK5I0WClncSXChSpnPTaqVlkW5RV2i/dAl6D7ND7UaYQyCq6Bd2/+15Wgv6nmbIwnDD2UfJmg1 FzRos4BQWyf3FhlXr+Entry Level Web Developer+fW5j79xtlwUfw23Yb5N7thXqLg+r2KcLZsWMJe52KnzF4vLZKSLc9gV8Ed9 [file] D9X3FvFNE3q6mDi8ToTXfZJ7MRKkYAOsg6GUaVrbjPdXisPTeW+José/w04UA7hdp7g5wO8ZE4bx6N8BN [file] vHk7MYL+c1Jg+7lTCs3M76+/8mfbhwu8NY57JPnkqNW+sKfnazKeD+vyMoRDR691hhuKKObxYYuPm/Oanh LQ9uvd7+hHPlSLMZ5STJAPJhxqbyTKR5OR3y81jjGB Wead9MmtA2w+kmCdXrMxaQ0tS9cdeA5p5rGBE2y/UE7vdBHxPOFAJgYwBVeqY+djiTjrsNP+K6bi5ZvC BI22klcq2D38+w5CpU01Epnt+nSuKErUS0qmilZ0ZfiEowIkS746P2EkwWzgGNVr6iqeyjZMSfcepCK6 h4KpWd82jN4mRCHd0pwvaKGqQCz/sWfDQK20eY+SXI 2CtP3KblLZauRJ9p3qr3Q33wp6PverI3L140LbGWJwZmTbwMUk+q/9h48TEFljK0ZBDT7RaeCeBCus/e AcXZuIvJL+JNUI+f/OeV05D+wBOgoDPqrM/Ehr7bj2Xh2wSruFihxvLpVzFMn5M4Qha8pm26ZEpnyo97 FcOeQ48W+5kuR/8CFAMLtaLz1KqwZrJn+5RoyO/pick up [file] processing instructor [file] N8G4Rxiz6/uYw40hbbY8IXzrnunG57lpIizmbVN7WlKccdq6quFNPw1eAEDC0l/engine mechanic/ki4greDXozbxl [file] furniture assembler and installer+3tFnSyll5cTgywegQfcGKJeN86fo4Niyq6UZ0q [file] Trim Mounter/VQSydBr8aQIlBvtx9CYL3J96MPAMVjrvHJ4Bxc1NQBxuA3DkR8M2ZIqFD4WjeyO2Cys2Vt6t0nZM [file] 7L8q3bH6JoL4GBX/credit and collections representative+nePWrJ7eyca8ZiD6NP0asi [file] UuyfmZyGmJ5aCGNI7lbNNhcmbbSM4BLCyI5ADH+Jorge Luis [file] fxF5cVuNquRhmVdn5dO3jWqTtD92x/w/dairy associate/Tc9vt7 [file] slip feeder+vJi43YuPkJN2YI1zwhHDaleZX9xEsh9YEDegSb7QqunhKLUA3c6pFmZ8g5rvHQc/Ebpclo3gQJEim [file] 3de/gshB++83RRloQITVALHP8I9V1sZngVMCt+34+Cl0B/+LAUNDRY SORTER/UL2bXModdGaQ0H2otgLmVllkOhG8Xg [file] FLAME ANNEALING MACHINE OPERATOR+Gkv8zvB4FWTQAlYH+4ie/J27Bn8jSIy4wnwQHG05x8+gMD+/yCQdZGmU/ComhFgrwhQx2hNqslSL [file] 38C1SR3gFcO5PDoMVfyKVWHpMRMSz66m/training and development director+xex8f [file] kwBsXAbnFpKmXjU9VWisREADCj== ID Date Data Source URINE CULTURE 07/15/2020 12:00:00 AM EST eCW1 ([facility]) Name Value Range Interpretation Code Description Data Noreen rce(s) Supporting Document(s) URINE CULTURE eCW1 ([facility]) ID Date Data Source UA URINALYSIS 07/15/2020 12:00:00 AM EST eCW1 ([facility]) Name Value Range Interpretation Code Description Data Noreen rce(s) Supporting Document(s) UA URINALYSIS eCW1 ([facility]) ID Date Data Source [id number] 07/13/2020 11:24:00 AM EST [facility] ([facility] Name Value Range Interpretation Code Description Data Noreen rce(s) Supporting Document(s) White Blood Count 5.5 10 4.0-10.0 Normal (applies to non-numeri c results) [facility] ([facility] Red Blood Count 4.34 10 4.00-5.40 Normal (applies to non-numeric results) [facility] ([facility] Hemoglobin 13.5 g/dL 12.0-15.5 Normal (applies to non-numeric resul ts) [facility] ([facility] Hematocrit 42.6 % 36.0-47.0 Normal (applies to non-numeric resul ts) [facility] ([facility] Mean Corpuscular Hemoglobin 31.1 pg 27.0-33.0 Norm al (applies to non-numeric results) [facility] ([facility] ) Mean Corpuscular Volume 98.2 fl 80.0-96.0 Above high normal [facility] ([facility] Red Cell Distribution Width 11.9 % 11.5-14.5 Norm al (applies to non-numeric results) [facility] ([facility] ) Mean Corpuscular HGB Conc 31.7 g/dL 32.0-36.5 Below low normal [facility] ([facility] Platelet Count, Automated 242 10 150-450 Normal (applies to non-numeric results) [facility] ([facility] ) Neutrophils % 58.2 % 36.0-66.0 Normal (applies to non-numeric re sults) [facility] ([facility] Lymph % 32.2 % 24.0-44.0 Normal (applies to non-numeric resul ts) [facility] ([facility] Hudspeth % 7.1 % 0.0-5.0 Above high normal [facility] ([facility] Baso % 0.5 % 0.0-1.0 Normal (applies to non-numeric resul ts) [facility] ([facility] Eos % 1.6 % 0.0-3.0 Normal (applies to non-numeric resul ts) [facility] ([facility] Nucleated Red Blood Cell % 0.0 % 0-0 Normal (applies to n on-numeric results) [facility] ([facility] Immature Granulocyte % 0.4 % 0-3.0 Normal (applies to non-n umeric results) [facility] ([facility] Neutrophils # 3.2 10 1.5-8.5 Normal (applies to non-numeric re sults) [facility] ([facility] Lymph # 1.8 10 1.5-5.0 Normal (applies to non-numeric resul ts) [facility] ([facility] Hudspeth # 0.4 10 0.0-0.8 Normal (applies to non-numeric resul ts) [facility] ([facility] Baso # 0.0 10 0.0-0.2 Normal (applies to non-numeric resul ts) [facility] ([facility] Eos # 0.1 10 0.0-0.5 Normal (applies to non-numeric resul ts) [facility] ([facility] ID Date Data Source [id number] 07/13/2020 11:24:00 AM EST [facility] ([facility] Name Value Range Interpretation Code Description Data Noreen rce(s) Supporting Document(s) Cancer Ag 15-3 [Units/volume] in Serum or Plasma 5.6 U/ML Normal (applies to non-numeric results) [facility] ([facility]) THE CA 15-3 ASSAY IS PERFORMED ON THE [employer] BY CHEMILUMINESCENCE AND SHOULD NOT BE COMPARED INTERCHANGEABLY WITH OTHER METHODS. IT SHOULD NOT BE USED ALONE A SCREENING TEST OR DIAGNOSIS FOR THE PRESENCE OR ABSENCE OF MALIGNANT DISEASE. PREDICTIONS OF DISEASE RECURRENCE SHOULD NOT BE BASED SOLELY ON VALUES OBTAINED FROM SERIAL PATIENT SERUM VALUES. Carcinoembryonic Ag [Mass/volume] in Serum or Plasma 1.1 ng/mL Normal (applies to non-numeric results) [facility] ([facility] THE CEA ASSAY IS PERFORMED ON THE [employer] BY CHEMILUMINESCENCE AND SHOULD NOT BE COMPARED INTERCHANGEABLY WITH OTHER METHODS. IT SHOULD NOT BE USED ALONE A SCREENING TEST OR DIAGNOSIS FOR THE PRESENCE OR ABSENCE OF MALIGNANT DISEASE. PREDICTIONS OF DISEASE RECURRENCE SHOULD NOT BE BASED SOLELY ON VALUES OBTAINED FROM SERIAL PATIENT SERUM VALUES. ID Date Data Source [id number] 07/13/2020 11:24:00 AM EST [facility] ([facility] Name Value Range Interpretation Code Description Data Noreen rce(s) Supporting Document(s) Glucose, Fasting 99 mg/dL 70-100 Normal (applies to non-numeric results) [facility] ([facility] Blood Urea Nitrogen 13 mg/dL 7-18 Normal (applies to non-nume mindy results) [facility] ([facility] Creatinine For GFR 0.65 mg/dL 0.55-1.30 Normal (applies to non -numeric results) [facility] ([facility] Glomerular Filtration Rate Laboratory test result Normal (applies to non- numeric results) [facility] ([facility] ) <content>Units are mL/min/1.73 m2</content>
<content></content>
<content>Chronic Kidney Disease Staging per NKF:</content>
<content></content>
<content>Stage I & II GFR >=60 Normal to Mildly Decreased</content>
<content>Stage III GFR 30- 59 Moderately Decreased</content>
<content>Stage IV GFR 15-29 Severely Decreased</content>
<content>Stage V GFR <15 Very Little GFR Left</content>
<content>ESRD GFR <15 on UNDERGROUND ELECTRICIAN</content>
<content></content> Sodium Level 142 meq/L 136-145 Normal (applies to non-numeric res ults) [facility] ([facility] Potassium Serum 4.1 meq/L 3.5-5.1 Normal (applies to non-numeric results) [facility] ([facility] Chloride Level 106 meq/L 98-107 Normal (applies to non-numeric r esults) [facility] ([facility] Carbon Dioxide Level 31 meq/L 21-32 Normal (applies to non-num shakila results) [facility] ([facility] Calcium Level 9.4 mg/dL 8.8-10.2 Normal (applies to non-numeric re sults) [facility] ([facility] Anion Gap 5 meq/L 8-16 Below low normal [facility] ( [facility] Alkaline Phosphatase 100 U/L 45-117 Normal (applies to non-num shakila results) [facility] ([facility] Alt/SGPT 18 U/L 12-78 Normal (applies to non-numeric resul ts) [facility] ([facility] Ast/Sgot 15 U/L 7-37 Normal (applies to non-numeric resul ts) [facility] ([facility] Total Protein 6.9 GM/DL 6.4-8.2 Normal (applies to non-numeric re sults) [facility] ([facility] Bilirubin,Total 0.7 mg/dL 0.2-1.0 Normal (applies to non-numeric results) [facility] ([facility] Albumin 3.8 GM/DL 3.2-5.2 Normal (applies to non-numeric resul ts) [facility] ([facility] Albumin/Globulin Ratio 1.2 1.2-2.2 Normal (applies to non-n umeric results) [facility] ([facility] ID Date Data Source DIAGNOSTIC UNILATERAL MAMMO 06/03/2020 10:45:05 AM EDT eCW1 ([facility]) Name Value Range Interpretation Code Description Data Noreen rce(s) Supporting Document(s) DIAGNOSTIC UNILATERAL MAMMO eC W1 ([facility]) ID Date Data Source [id number] 05/24/2020 01:20:00 PM EDT [facility] ([facility], ) Name Value Range Interpretation Code Description Data Noreen rce(s) Supporting Document(s) Surgical pathology study Laboratory test result [facility] ([facility], ) <content>FINAL DIAGNOSIS</content>
< content></content>
<content>A-Right breast, lumpectomy:</content>
<content>Invasive ductal carcinoma, grade 1(of III). -4/TR (See comment)</content>
<content>Tumor size: 0.7cm in greatest dimension (microscopic measurement)</content>
<content>Focal ductal carcinoma in situ, grade 1 (of III).</content>
<content>No lymphovascular invasion identified.</content>
<content>Margins are uninvolved by carcinoma in situ or invasive carcinoma.</content>
<content>Microcalcifications associated with stroma and benign glands.</content>
<content>Two lymph nodes negative for metastatic carcinoma (0/2).</content>
<content>Background with extensive fibrosis.</content>
<content>Specimen entirely submitted for evaluation.</content>
<content>pT1b, pN0</content>
<content>See below for report summary.</content>
<content></content>
<content>B-Submitted as "true new margin deep":</content>
<content>Negative margin.</content>
<content>Benign breast tissue.</content>
<content></content>
<content>C-Lymph node, right axillary sentinel:</content>
<content>One lymph node negative for metastatic carcinoma (0/1).</content>
<content></content>
<content>D-Submitted as "true new margin superior":</content>
<content>Negative margin.</content>
<content>Benign breast tissue.</content>
<content></content>
<content>E-Submitted as "true new margin inferior":</content>
<content>Negative margin.</content>
<content>Benign breast tissue.</content>
<content></content>
<content>F-Submitted as "true new margin lateral":</content>
<content>Negative margin.</content>
<content> Benign breast tissue.</content>
<content></content>
<content>G-Submitted as "true new margin medial":</content>
<content>Negative margin.</content>
<content>Benign breast tissue with small fibroadenoma.</content>
<content></content>
<content>H-Submitted as "right breast excess skin":</content>
<content>Benign skin.</content>
<content>Negative for malignancy.</content>
<content></content>
<content></content>
<kojo nt>TUMOR REPORT SUMMARY:</content>
<content></content>
<content>BREAST, RIGHT, LUMPECTOMY - INVASIVE DUCTAL CARCINOMA.</content>
<content></content>
<content>SIZE - 0.7cm in greatest dimension (microscopic measurement)</content>
<content>GRADE (MELANIE-OCHOA) - 1</content>
<content>LYMPH-VASCULAR INVASION -Not identified</content>
<content>IN-SITU COMPONENT (DCIS): Present, low grade ductal carcinoma in</content>
<content>situ</content>
<content>MARGINS - Uninvolved by carcinoma in situ or invasive carcinoma.</content>
<content>RECEPTORS/TUMOR MARKERS (IMMUNOHISTOCHEMISTRY):</content>
<content></content>
<content>Per DR Samaniego note, hormone positive and HER2 negative</content>
<content></content>
<content>OTHER FINDINGS - Fibrosis</content>
<content></content>
<content>pT N: pT1b, p N0</co ntent>
<content></content>
<content></content>
<content>Comment: H&E sections show a low grade tumor with tubular and</content>
<content>cribriform features.</content>
<content> 05/30/2020 - 09</content>
<content></content>
<content>CLINICAL DIAGNOSIS</content>
<content></content>
<content>Right breast cancer</content>
<content>05/25/2020 - 1456</content>
<content></content>
<content>GROSS DIAGNOSIS</content>
<content></content>
<content>A - Received in formalin labeled "right breast lumpectomy" consists of a</content>
<content>fragment of adipose tissue, 5.5 x 4.0 x 3.0 cm. Localization wire is in</content>
<content>place. The surgeon has inked the specimen as follows; anterior green,</content>
<content>inferior blue, lateral orange, medial yellow, posterior black, and</content>
<content> superior red. The specimen is all submitted in 15 blocks.</content>
<content></content>
<content>B - Received in formalin labeled "true new margin, deep" consists of a</content>
<content>fragment of adipose tissue, 1 x 1 x 0.2 cm. The new margin has been</content>
<content>inked black. All is submitted in one.</content>
<content></content>
<content>C - Received in formalin labeled "right axillary sentinel lymph node"</content>
<content>consists of a lymph node 0.5 x 0.5 x 0.2 cm. All in one.</content>
<content></content>
<content>D - Received in formalin labeled "true new margin, superior" consists of</content>
<content>a fragment of tissue, 1.5 x 1.0 x 0.2 cm. The new margin is inked</content>
<content>black. All in one.</content>
<content></content>
<content>E - Received in formalin labeled "true new margin, inferior" consists of</content>
<content>a fragment of tissue, 2.0 x 1.0 x 0.3 cm. The true new margin has been</content>
<content>inked black. All in one.</content>
<content></content>
<content>F - Received in formalin labeled "true new margin, lateral" consists of</content>
<content>a fragment of tissue, 1.2 x 1.0 x 0.3 cm. The new true margin has been</content>
<content>inked black. All is submitted in one.</content>
<content></content>
<content>G - Received in formalin labeled "true new margin, medial" consists of a</content>
<content>fragment of tissue, 4.0 x 3.0 x 0.5 cm. The new margin has been inked</content>
<content>black. All is submitted in three.</content>
<content></content>
<content>H - Received in formalin labeled "right breast excess skin" consists of</content>
<content>a fragment of skin, 3 x 2 x 0.6 cm. The specimen is grossly</content>
<content> unremarkable. Aircraft Sales Representative section is submitted in one.</content>
<content>-OA</content>
<content>05/25/2020 - 1456</content>
<content></content>
<content>Signed OLMAN ZAVALA MD 05/30/2020 0901</content>
<content></content> ID Date Data Source [id number] 05/24/2020 07:22:00 AM EDT [facility] ([facility], ) Name Value Range Interpretation Code Description Data Noreen rce(s) Supporting Document(s) Blood group antibody screen [Presence] in Serum or [place] sma Laboratory test result Normal (applies to non-numeric results) [facility] ([facility], ) Blood Type Laboratory test result Normal (applies to non-n umeric results) [facility] ([facility], ) ID Date Data Source [id number] 05/24/2020 07:22:00 AM EDT [facility] ([facility] Name Value Range Interpretation Code Description Data Noreen rce(s) Supporting Document(s) Blood Type Laboratory test result Normal (applies to non-n umeric results) [facility] ([facility] AB Screen (Indirect [place])Vis Laboratory test result Normal (applies to non- numeric results) [facility] ([facility] ) ID Date Data Source [id number] 05/19/2020 11:00:00 AM EDT [facility] Name Value Range Interpretation Code Description Data Noreen rce(s) Supporting Document(s) SARS coronavirus 2 RNA [facility] This lab was ordered by [facility] and reported by [facility]. ID Date Data Source [id number] 05/16/2020 12:22:00 PM EDT [facility] ([facility] Name Value Range Interpretation Code Description Data Noreen rce(s) Supporting Document(s) BUN 13 mg/dL 8-23 [facility] ([facility] NORMAL RANGES Age WBC RBC HGB HCT [...] HCT IS 5% LESS SOURCE FOR DATA: Federated Sample 1800 OPERATION MANUAL( AUTOMATED BLOOD COUNTS AND [...] Normal 80 and above >32 mL/min Normal Glu 103 mg/dL 70-110 [facility] NORMAL RANGES Age WBC RBC HGB HCT [...] HCT IS 5% LESS SOURCE FOR DATA: Federated Sample 1800 OPERATION MANUAL( AUTOMATED BLOOD COUNTS AND [...] Normal 80 and above >32 mL/min Normal BUN/Creatinine Ratio 21.9 [facility] ([facility] NORMAL RANGES Age WBC RBC HGB HCT [...] HCT IS 5% LESS SOURCE FOR DATA: Federated Sample 1800 OPERATION MANUAL( AUTOMATED BLOOD COUNTS AND [...] Normal 80 and above >32 mL/min Normal Creat 0.6 mg/dL 0.5-1.0 [facility] ([facility] NORMAL RANGES Age WBC RBC HGB HCT [...] HCT IS 5% LESS SOURCE FOR DATA: Federated Sample 1800 OPERATION MANUAL( AUTOMATED BLOOD COUNTS AND [...] Normal 80 and above >32 mL/min Normal Na 140 mmol/L 136-145 [facility] ([facility] NORMAL RANGES Age WBC RBC HGB HCT [...] HCT IS 5% LESS SOURCE FOR DATA: Federated Sample 1800 OPERATION MANUAL( AUTOMATED BLOOD COUNTS AND [...] Normal 80 and above >32 mL/min Normal K 3.9 mmol/L 3.5-5.1 [facility] NORMAL RANGES Age WBC RBC HGB HCT [...] HCT IS 5% LESS SOURCE FOR DATA: Federated Sample 1800 OPERATION MANUAL( AUTOMATED BLOOD COUNTS AND [...] Normal 80 and above >32 mL/min Normal CL 103.4 mmol/L 98.0-107.0 [facility] ([facility] NORMAL RANGES Age WBC RBC HGB HCT [...] HCT IS 5% LESS SOURCE FOR DATA: Federated Sample 1800 OPERATION MANUAL( AUTOMATED BLOOD COUNTS AND [...] Normal 80 and above >32 mL/min Normal Co2 28.0 mmol/L 22.0-29.0 [facility] ([facility] NORMAL RANGES Age WBC RBC HGB HCT [...] HCT IS 5% LESS SOURCE FOR DATA: Federated Sample 1800 OPERATION MANUAL( AUTOMATED BLOOD COUNTS AND [...] Normal 80 and above >32 mL/min Normal CA 8.9 mg/dL 8.6-10.2 [facility] ([facility] NORMAL RANGES Age WBC RBC HGB HCT [...] HCT IS 5% LESS SOURCE FOR DATA: NATALYA DYN 1800 OPERATION MANUAL( AUTOMATED BLOOD COUNTS AND [...] Normal 80 and above >32 mL/min Normal TP 5.9 g/dL 6.6-8.7 Below low normal [facility] ( [facility] NORMAL RANGES Age WBC RBC HGB HCT [...] HCT IS 5% LESS SOURCE FOR DATA: [facility] DYN 1800 OPERATION MANUAL( AUTOMATED BLOOD COUNTS AND [...] Normal 80 and above >32 mL/min Normal Alb 4.0 g/dL 3.4-4.8 [facility] ([facility] NORMAL RANGES Age WBC RBC HGB HCT [...] HCT IS 5% LESS SOURCE FOR DATA: Federated Sample 1800 OPERATION MANUAL( AUTOMATED BLOOD COUNTS AND [...] Normal 80 and above >32 mL/min Normal Globulin 1.9 CALC [facility] ([facility] NORMAL RANGES Age WBC RBC HGB HCT [...] HCT IS 5% LESS SOURCE FOR DATA: Federated Sample 1800 OPERATION MANUAL( AUTOMATED BLOOD COUNTS AND [...] Normal 80 and above >32 mL/min Normal A/G Ratio 2.1 [facility] NORMAL RANGES Age WBC RBC HGB HCT [...] HCT IS 5% LESS SOURCE FOR DATA: Federated Sample 1800 OPERATION MANUAL( AUTOMATED BLOOD COUNTS AND [...] Normal 80 and above >32 mL/min Normal Alt (SGPT) 10 U/L 0-41 [facility] ([facility] NORMAL RANGES Age WBC RBC HGB HCT [...] HCT IS 5% LESS SOURCE FOR DATA: Federated Sample 1800 OPERATION MANUAL( AUTOMATED BLOOD COUNTS AND [...] Normal 80 and above >32 mL/min Normal Alp 107.9 U/L 35-129 [facility] ([facility] NORMAL RANGES Age WBC RBC HGB HCT [...] HCT IS 5% LESS SOURCE FOR DATA: Federated Sample 1800 OPERATION MANUAL( AUTOMATED BLOOD COUNTS AND [...] Normal 80 and above >32 mL/min Normal Osmolality-Calculated 280.5 [facility] ([facility] NORMAL RANGES Age WBC RBC HGB HCT [...] HCT IS 5% LESS SOURCE FOR DATA: Federated Sample 1800 OPERATION MANUAL( AUTOMATED BLOOD COUNTS AND [...] Normal 80 and above >32 mL/min Normal Ast (Sgot) 18 U/L 0-40 [facility] ([facility] NORMAL RANGES Age WBC RBC HGB HCT [...] HCT IS 5% LESS SOURCE FOR DATA: Federated Sample 1800 OPERATION MANUAL( AUTOMATED BLOOD COUNTS AND [...] Normal 80 and above >32 mL/min Normal Tbili 0.42 mg/dL 0.0-1.2 [facility] NORMAL RANGES Age WBC RBC HGB HCT [...] HCT IS 5% LESS SOURCE FOR DATA: Federated Sample 1800 OPERATION MANUAL( AUTOMATED BLOOD COUNTS AND [...] Normal 80 and above >32 mL/min Normal Anion Gap 13 mmol/L [facility] ([facility] NORMAL RANGES Age WBC RBC HGB HCT [...] HCT IS 5% LESS SOURCE FOR DATA: [facility] DYN 1800 OPERATION MANUAL( AUTOMATED BLOOD COUNTS AND [...] Normal 80 and above >32 mL/min Normal eGFR 110 # [facility] ( [facility] NORMAL RANGES Age WBC RBC HGB HCT [...] HCT IS 5% LESS SOURCE FOR DATA: [facility] DYN 1800 OPERATION MANUAL( AUTOMATED BLOOD COUNTS AND [...] Normal 80 and above >32 mL/min Normal eGFR Non-Afr. Salvadorean 95 # [facility] ([facility] NORMAL RANGES Age WBC RBC HGB HCT [...] HCT IS 5% LESS SOURCE FOR DATA: [employer] 1800 OPERATION MANUAL( AUTOMATED BLOOD COUNTS AND [...] Normal 80 and above >32 mL/min Normal ID Date Data Source [id number] 05/16/2020 12:22:00 PM EDT [facility] ([facility] Name Value Range Interpretation Code Description Data Noreen rce(s) Supporting Document(s) WBC 4.8 10E3/uL 4.1-10.9 [facility] ([facility] NORMAL RANGES Age WBC RBC HGB HCT [...] HCT IS 5% LESS SOURCE FOR DATA: [employer] Sample 1800 OPERATION MANUAL( AUTOMATED BLOOD COUNTS AND [...] Normal 80 and above >32 mL/min Normal RBC 4.24 10E6/uL 4.20-6.30 EVELYN ([facility] NORMAL RANGES Age WBC RBC HGB HCT [...] HCT IS 5% LESS SOURCE FOR DATA: [employer] Sample 1800 OPERATION MANUAL( AUTOMATED BLOOD COUNTS AND [...] Normal 80 and above >32 mL/min Normal HGB 13.6 g/dL 12.0-18.0 [facility] ([facility] NORMAL RANGES Age WBC RBC HGB HCT [...] HCT IS 5% LESS SOURCE FOR DATA: [employer] Sample 1800 OPERATION MANUAL( AUTOMATED BLOOD COUNTS AND [...] Normal 80 and above >32 mL/min Normal HCT 40.6 % 37.0-51.0 [facility] ([facility] NORMAL RANGES Age WBC RBC HGB HCT [...] HCT IS 5% LESS SOURCE FOR DATA: [employer] Sample 1800 OPERATION MANUAL( AUTOMATED BLOOD COUNTS AND [...] Normal 80 and above >32 mL/min Normal MCH 32.1 pg 26.0-32.0 Above high normal [facility] ([facility] NORMAL RANGES Age WBC RBC HGB HCT [...] HCT IS 5% LESS SOURCE FOR DATA: [employer] Sample 1800 OPERATION MANUAL( AUTOMATED BLOOD COUNTS AND [...] Normal 80 and above >32 mL/min Normal MCV 95.8 fL 80.0-97.0 [facility] ([facility] NORMAL RANGES Age WBC RBC HGB HCT [...] HCT IS 5% LESS SOURCE FOR DATA: [employer] Sample 1800 OPERATION MANUAL( AUTOMATED BLOOD COUNTS AND [...] Normal 80 and above >32 mL/min Normal MCHC 33.5 g/dL 31.0-36.0 [facility] ([facility] NORMAL RANGES Age WBC RBC HGB HCT [...] HCT IS 5% LESS SOURCE FOR DATA: [facility] DYN 1800 OPERATION MANUAL( AUTOMATED BLOOD COUNTS AND [...] Normal 80 and above >32 mL/min Normal PLT 248 10E3/uL 140-440 [facility] ([facility] NORMAL RANGES Age WBC RBC HGB HCT [...] HCT IS 5% LESS SOURCE FOR DATA: [employer] Sample 1800 OPERATION MANUAL( AUTOMATED BLOOD COUNTS AND [...] Normal 80 and above >32 mL/min Normal RDW-CV 11.7 % 11.5-14.5 [facility] ([facility] NORMAL RANGES Age WBC RBC HGB HCT [...] HCT IS 5% LESS SOURCE FOR DATA: [employer]erated Sample 1800 OPERATION MANUAL( AUTOMATED BLOOD COUNTS AND [...] Normal 80 and above >32 mL/min Normal Lym% 30.2 % 10.0-58.5 [facility] ([facility] NORMAL RANGES Age WBC RBC HGB HCT [...] HCT IS 5% LESS SOURCE FOR DATA: [employer] Sample 1800 OPERATION MANUAL( AUTOMATED BLOOD COUNTS AND [...] Normal 80 and above >32 mL/min Normal Neut% 61.4 % 37.0-92.0 [facility] ([facility] NORMAL RANGES Age WBC RBC HGB HCT [...] HCT IS 5% LESS SOURCE FOR DATA: [employer]erated Sample 1800 OPERATION MANUAL( AUTOMATED BLOOD COUNTS AND [...] Normal 80 and above >32 mL/min Normal Lym# 1.4 10E3/uL 0.6-4.1 [facility] ([facility] NORMAL RANGES Age WBC RBC HGB HCT [...] HCT IS 5% LESS SOURCE FOR DATA: [employer]erated Sample 1800 OPERATION MANUAL( AUTOMATED BLOOD COUNTS AND [...] Normal 80 and above >32 mL/min Normal MXD% 8.4 % 0.1-24.0 [facility] ([facility] NORMAL RANGES Age WBC RBC HGB HCT [...] HCT IS 5% LESS SOURCE FOR DATA: Federated Sample 1800 OPERATION MANUAL( AUTOMATED BLOOD COUNTS AND [...] Normal 80 and above >32 mL/min Normal Neut# 3.0 % 2.0-7.8 [facility] ([facility] NORMAL RANGES Age WBC RBC HGB HCT [...] HCT IS 5% LESS SOURCE FOR DATA: Federated Sample 1800 OPERATION MANUAL( AUTOMATED BLOOD COUNTS AND [...] Normal 80 and above >32 mL/min Normal MXD# 0.4 10E3/uL 0.0-1.8 EVELYN ([facility] NORMAL RANGES Age WBC RBC HGB HCT [...] HCT IS 5% LESS SOURCE FOR DATA: Federated Sample 1800 OPERATION MANUAL( AUTOMATED BLOOD COUNTS AND [...] Normal 80 and above >32 mL/min Normal MPV 9.6 fL 9.0-13.0 [facility] ([facility] NORMAL RANGES Age WBC RBC HGB HCT [...] HCT IS 5% LESS SOURCE FOR DATA: NATALYA DYN 1800 OPERATION MANUAL( AUTOMATED BLOOD COUNTS AND [...] Normal 80 and above >32 mL/min Normal ID Date Data Source [id number] 05/12/2020 07:30:00 AM EDT [facility] Name Value Range Interpretation Code Description Data Noreen rce(s) Supporting Document(s) EGD-dil [facility] OUPAGm8pKsUJIpWcGMZcOzoWSDwjIFglXGBgG5K5RHddDr4FLDyqucSvDXEbDr6+GCBwRN0brh1pAODw gMy 8nWUSiLwgcJ0PvLTXin83UUQKlBFyJQbWdVxIuTIAlTDk3FBNdWJT4JkHmJvohUB1bBMT2WHToSFopZS YuSXkuHBC6NRUbHe5uAAbqKEgqYn9AER8op4FeBZSmBVWoDpgPQYuhFWsqTYXeWZSzAGJiS066prSxEw 1PtXDaEEf4DQMwXaJ7PBZoAeA6FKNpUt0hGsLqe5Wf L6PmVHw6V4xDZeeiP9XtDCdjTA3yAMR1ZPNfDk6QuViaVJpvEKFQN2iyHrBeEOSsAMWWPa6+Pj4+DWVu KM7sve31MZItp3VkEHv3T9O8jFYmM2UoT5JyQCLmtZESm4hxYrJqQKS2DJRdOvnbAR9LLAIurRZwTOPm OCqwUT5usgSqlVW7LP2WgZinSBXrRSSMZj9+Pi9QYX FxkuCtAlEmQIJnE53ruHDrwIMfLwcpPKLXBQ5+SJTeSM5dph30EGIvn5XiATr9X8rvhlb8aNAnWBRzTZ VcIoWmBPKbZR9iCP7VgGY6oJQiXR8CwIUmMI5FdIIrPN6RU3SzUEO0Y0LzlRRegnJrA7OoJGBtEGEcd6 IkQD0KT3HKGCQwRMMwU0RccQ0iB2XpM1QtV9Zujuth GKYHSh8WlCA4nPDaEXLyD2gpdMuwmPKsXDyxK5RhiWSVKZMPi86ah40jbbExDX6+r0PzPMTuHVr37ij0 ZVAcX/ktJXRXYqb2XMxiCYZaMnFIll1zC1srLcI7LMs4SiwpiAM7H8dDmATM0//cwnt4tnu5rs/eD+/z 9EXImb3+j6jo0eZg4zXw2WIYKSljLHVYbGZJYINA91 vmcYn5GFvwfTjyoXkX+IXrBZTIaGKqg1zX8T8Kb4WJpcOjWqJ75+Bz5xvn6vpr9uYo8+Lm/QjeFV1nh6 ZHQyfGwCDmfEv+lvP/IM26YMbmvSjlmnIDZcKVAmGEI+HdP0ZZKEXiTshITJ4sPLsQXbGak8Tfn9O7JN CPDXiFAAS+QgQiISEi/u31+lzQNPOKqn6F4NWCP0yK [file] T1M5AM1Oy6J+NAuqWwUniUtvjrQj9fvoHvoxs5q7XSKI5VtRj3YR4HTBKXiLKrecGjkjDZoN6CA4++LAUNDRY SORTER [file] +4AetMM36exd4IRaCwBP46QUcROxV6axuTzBF5bIpxQdE7kBYXuClFMENBng+Sadiq/fH6dI8UxjmSX+CYBER FORENSIC SPECIALIST R4Xowmv9gLLCE9WBGpaaUhHIlBLn98qG5v3dEk11gY oIfHJxhyeutNjdf17JzXdtUR5kNqgFGn9ZjL+OqEcBVB1fiM4oFYKI70gmV33b7QKVn3wOFJx01E9lj7 ugRzT8kw1qDUlA5bFa4+SFa/idBPfGt7wxbvxXb2fqDP/naNTcr70ED2Tem8+wquKe3R+/VLvjgk9pAZ C34u0/ev7nIAvjPpJ8QlvG/23IgWV3pBs61izaB4bI 7yyCvXCjr7aezNG8LL+2QfJTUUhvMtlqM8RkhoT/ZNYKSEQ1rVja+R+nackvjEyXpMxwewVwYXqcMRxY ghSchjrRmODtGHGxG9fnGDZt5se6s/0WX46p0bYpOrJeoo6e0cZgWI9BOua+tzhtMjwPhp7b3h61f6pY dJuMpZ2n2DpDvyOQzU/2cXZApd5htdpc1vL50CUTTg pKWVeN5SDaBKl8jvrD39gOKzzyyFuHGd66S1zJ8YHY4UVScpMZHP0PO6hgq2mxwfgSlqjYWXamvbVMEg GtkGCGdotBZNiTjTi6vIsSnVLYNKq3WButxf2LE3u870fuc4eHciE6VOkVVpvi7KWD2cmSE9j8M3w7p2 6DNFHDpldKvp9W2ZCYgM1ZMaYlm2+YnpPasVs/Mhvm kpXPX99K1rYDH9t6k981iOs9SXO0a8ov/c2DaCDOenrG/GZsczcfZSePUL4G2I5FpnOJajQpTC1qpM5M W+4V+J07Xw/o9gvDROeewjyFYtclW2TYSVP/+8TVp+c2Md8/0ivfdAyk7kUumTo51yBOZRDmWJRP0yvt gEojoclyeK8lXgCcT78OAPRPR4+7i+uwU0+BlhLCn3 0OhO5djkrlh611LsBwFtJEnrvo3U30JZAmtlkhJVwtnsppGOoiORhZIiR59uuwpsimnWlBT9ngzYppel [file] 2Y+correctional captain+4k51ykbdOr1JW3f79MtIk3lYI2t4XzXeStlvRTZk90pGiJwDf4E9UP4Qo5E2/PytsCqPY5P85 [file] TLCp9+7z1OilrecyxaJwSVbxB2iw50Q+44r/N [file] 8KFjDaYE0bgm2SUmV7ZBX1mLWmQf9QBuO6UhhaNOjiWPNCFc== ID Date Data Source [id number] 05/09/2020 07:45:00 AM EDT [facility] Name Value Range Interpretation Code Description Data Noreen rce(s) Supporting Document(s) SARS coronavirus 2 RNA [facility] This lab was ordered by [facility] and reported by [facility]. ID Date Data Source [id number] 05/05/2020 12:11:00 PM EDT [facility] ([facility], ) Name Value Range Interpretation Code Description Data Noreen rce(s) Supporting Document(s) Surgical pathology study Laboratory test result [facility] ([facility], ) FINAL DIAGNOSIS Right breast, biopsy: Benign breast tissue with microcalcifications. Negative for malignancy. 05/06/2020 - 1354 CLINICAL DIAGNOSIS Right breast CA 05/05/2020 - 1422 GROSS DIAGNOSIS Received in formalin labeled "right breast biopsy" and consists of a core fragment of tissue measuring from 0.5 to 2 cm. All in two. -OA 05/05/2020 - 142 Signed OLMAN ZAVALA MD 05/06/2020 1356 ID Date Data Source [id number] 04/28/2020 09:16:00 AM EDT [facility] ([facility] Name Value Range Interpretation Code Description Data Noreen rce(s) Supporting Document(s) Laboratory test finding (navigational concept) Laboratory test result [facility] ([facility] Performed at: RN - [facility] [address] [id number] [employer] Supervisor: Lu Seay MD, Phone: [phone] Elastase.pancreatic [Mass/mass] in Stool 401 [facility] ([facility] <content>INFCE Result Units: ug Elast./g </content>
<content>Severe Pancreatic Insufficiency: <100</content>
<content>Moderate Pancreatic Insufficiency: 100 - 200</content>
<content>Normal: >200</content>
<content>Performed at: [facility]</content>
<content>[address] [place] [phone]</content>
<content>[employer] Supervisor: Toby Peralta MD, Phone: [phone]</content>
<content></content> ID Date Data Source [id number] 04/28/2020 09:16:00 AM EDT [facility] ([facility] Name Value Range Interpretation Code Description Data Noreen rce(s) Supporting Document(s) Laboratory test finding (navigational concept) Laboratory test result [facility] ([facility] No Campylobacter species isolated. Laboratory test finding (navigational concept) Laboratory test result [facility] ([facility] Laboratory test finding (navigational concept) Laboratory test r esult Above high normal [facility] ([facility] ) 05/04/20 1209: REMI/SHIG SCRN previously reported as: Preliminary report Laboratory test finding (navigational concept) Laboratory test r esult Above high normal [facility] ([facility] ) Aeromonas species 05/03/20 1205: SS RESULT1 previously reported as: Comment Microbiological testing to rule out the presence of possible pathogens is in progress. Heavy growth Laboratory test finding (navigational concept) Laboratory test result [facility] ([facility] S = Susceptible; I = Intermediate; R = Resistant P = Positive; N = Negative MICS are expressed in micrograms per mL Antibiotic RSLT#1 RSLT#2 RSLT#3 RSLT#4 Ceftriaxone S Ciprofloxacin S Gentamicin S Levofloxacin S Meropenem S Piperacillin/Tazobactam S Trimethoprim/Sulfa S Laboratory test finding (navigational concept) Laboratory test result [facility] ([facility] No Salmonella or Shigella recovered. ID Date Data Source [id number] 04/28/2020 09:16:00 AM EDT [facility] ([facility] Name Value Range Interpretation Code Description Data Noreen rce(s) Supporting Document(s) Clostridium difficile toxin A+B [Presence] in Stool by Immunoassay Laboratory test result EVELYN ([facility] THIS TEST IS PERFORMED USING A RAPID IMMUNONASSAY FOR DETECTING CLOSTRIDIUM DIFFICILE TOXINS A AND B. ID Date Data Source [id number] 05/03/2020 03:06:00 PM EDT [facility] Name Value Range Interpretation Code Description Data Noreen rce(s) Supporting Document(s) Fats, Neutral Normal [facility] Normal (<60 Droplets/HPF) Fats, Total Normal [facility] Normal (<100 Droplets/HPF) ID Date Data Source [id number] 05/07/2020 09:05:00 PM EDT [facility] Name Value Range Interpretation Code Description Data Noreen rce(s) Supporting Document(s) Calprotectin, Fecal 63 ug/g 0-120 [facility] Concentration Interpretation Follo w-Up<16 - 50 ug/g Normal None>50 -120 ug/g Borderline Re-evaluate in 4-6 weeks >120 ug/g Abnormal Repeat as clinically indicated ID Date Data Source [id number] 05/16/2020 05:05:00 PM EDT [facility] Name Value Range Interpretation Code Description Data Noreen rce(s) Supporting Document(s) Request Problem [facility] This assay is not approved for [facility] clients. TEST: [id number] Fecal Chymotrypsin ID Date Data Source [id number] 05/04/2020 12:09:00 PM EDT [facility] Name Value Range Interpretation Code Description Data Noreen rce(s) Supporting Document(s) SALMONELLA/SHIGELLA SCREEN Final report . [facility] 05/04/20 1209: REMI/SHIG SCRN previously reported as: Preliminary report SS RESULT1 Aeromonas species . [facility] 05/03/20 1205: SS RESULT1 previously re ported as: Comment Microbiological testing to rule out the presence of possible pathogens is in progress.Heavy growth SS RESULT2 Comment . [facility] No Salmonella or Shigella recovered. SS RESULT5 Comment . [facility] S = Susceptible; I = Intermedia te; R = Resistant P = Positive; N = Negative MICS are expressed in micrograms per mL Antibiotic RSLT#1 RSLT#2 RSLT#3 RSLT#4Ceftriaxone SCiprofloxacin SGentamicin SLevofloxacin SMeropenem SPiperacillin/Tazobactam STrimethoprim/Sulfa S CAMPYLOBACTER CULTURE Final report . [facility] CC RESULT1 Comment . [facility] No Campylobacter species isolated. E COLI SHIGA TOXIN EIA Negative Negative [facility] Performed at: [facility] [id number] Director: Lu Seay MD, Phone: [phone] ID Date Data Source [id number] 05/06/2020 04:05:00 PM EDT [facility] Name Value Range Interpretation Code Description Data Noreen rce(s) Supporting Document(s) PANCREATIC ELASTASE, FECAL 401 >200 [facility] INFCE Result Units: ug Elast./g Se melina Pancreatic Insufficiency: <100 Moderate Pancreatic Insufficiency: 100 - 200 Normal: >200Performed at: [facility] [id number] Director: Toby Peralta MD, Phone: [phone] ID Date Data Source [id number] 05/04/2020 12:05:00 PM EDT [facility] Name Value Range Interpretation Code Description Data Noreen rce(s) Supporting Document(s) E coli Shiga Toxin EIA Negative Negative [facility] Campylobacter Culture Final report [facility] Salmonella/Shigella Screen Final report Abnor mal (applies to non-numeric results) [facility] ID Date Data Source [id number] 05/06/2020 04:05:00 PM EDT [facility] Name Value Range Interpretation Code Description Data Noreen rce(s) Supporting Document(s) Pancreatic Elastase, Fecal 401 ug Elast./g >200 [facility] Severe Pancreatic Insufficiency: <100 Moderate Pancreatic Insufficiency: 100 - 200 Normal: >200 ID Date Data Source [id number] 05/04/2020 12:05:00 PM EDT [facility] Name Value Range Interpretation Code Description Data Noreen rce(s) Supporting Document(s) Result 1 Aeromonas species Abnormal (applies to non-nume mindy results) [facility] Heavy growth Result 2 [facility] No Salmonella or Shigella recovered. Antimicrobial Susceptibility [facility] S = Susceptible; I = Intermedia te; R = Resistant P = Positive; N = Negative MICS are expressed in micrograms per mL Antibiotic RSLT#1 RSLT#2 RSLT#3 RSLT#4Ceftriaxone SCiprofloxacin SGentamicin SLevofloxacin SMeropenem SPiperacillin/Tazobactam STrimethoprim/Sulfa S ID Date Data Source [id number] 05/04/2020 12:05:00 PM EDT [facility] Name Value Range Interpretation Code Description Data Noreen rce(s) Supporting Document(s) Result 1 [facility] No Campylobacter species isolated. ID Date Data Source [id number] 04/28/2020 10:16:00 AM EDT [facility] [phone] Name Value Range Interpretation Code Description Data Noreen rce(s) Supporting Document(s) CDIFF A/B NEGATIVE NEGATIVE [facility] THIS TEST IS PERFORMED USING A RAPIDIMMU NONASSAY FOR DETECTING CLOSTRIDIUM DIFFICILE TOXINS AAND B. ID Date Data Source [id number] 04/27/2020 12:26:25 PM EDT [facility] Name Value Range Interpretation Code Description Data Noreen rce(s) Supporting Document(s) Progress Note [facility] AWGVQe3yMiHUNbQt28/QTVngMNCku7MyUDxjGXx9PJleCSLqZ0FjEMV1rD7eGKP5JLzKWlAkZkGhSYD5 lbm [file] AgICAgICAgICAgICAgICAgICAgICAgICAgICAgICAg ICAgICAgICAgICAgICAgICAgICAgICAgICAgICAgICAgICAgICAgICAgICAgICAgICAgICAgICAgICAg SH1ETHQuYOPuLTLgCKAdPJEsCMXdYWLpBVYeIZFtLCNiTXOoYAMwWOIzULOkDNClQREzTTZtMMTiKMBi ICAgICAgICAgICAgICAgICAgICAgICAgICAgICAgIC FfVLIbBKHhEORzSM9WQMHbXIPwZYIlGVLrTEHaELPmIXXcEXLgMPAuGPFoCKYjQAOiDNXzXNDlJTBzCN FxZHLuLNAcPRCaFTQpOYXpTSYtXCWuEMFqGVWtKBKzDEOsMGGdAECdBTWyCAOjYAIxWGYcHS6BMHUfSB AgICAgICAgICAgICAgICAgICAgICAgICAgICAgICAg ICAgICAgICAgICAgICAgICAgICAgICAgICAgICAgICAgICAgICAgICAgICAgICAgICAgICAgICAgICAg CIKaUR9YXOZpBMIpNSZwEMEiYXEbZKKySQTfEPPdAVHdPXQxYRNmIVGbKVVpRYMyCJHjKVJcGJMhQPSr ICAgICAgICAgICAgICAgICAgICAgICAgICAgICAgIC FgEREoSQApQWZhZBNdUA1MXOXzOGVgFRPeSYZrGVSxEXLpSUNgVADaYBTlWYRdZLGkDNWrAWEfGHBzIN AcTBRjBFYoDGMzGJFgYEBdVXWjBLCdNPRbLQZjTRUsNOMbKHHgYKJuMXLsJVSwVZDhBBPxWTWqQC0OXF AgICAgICAgICAgICAgICAgICAgICAgICAgICAgICAg ICAgICAgICAgICAgICAgICAgICAgICAgICAgICAgICAgICAgICAgICAgICAgICAgICAgICAgICAgICAg OQKhUCHyMI4NSEOlFAIrEWSyPAKfKDUxYTZhLVTvGFExBGIhXQOuENNiTPOxRVTeNCWiHJBwISCrZZPt ICAgICAgICAgICAgICAgICAgICAgICAgICAgICAgIC QdQXJwZGHwGMIwHYTzGQFnTD4XGHJuLHIkGSAbMQThXZQqEOMkXOMcMCVoJNYtUTOtSWJvTZJxVAOcII AgICAgICAgICAgICAgICAgICAgICAgICAgICAgICAgICAgICAgICAgICAgICAgICAgICAgICAgICAgIA 9UMT87zOYir0V7XQLbUZ5mgnt/Vh9DPFdikeWmdRKv YE6RAnTqZT2irz1HAjQnQD6jvj8JZPkJTrBbS0A0nBRzZYHlPAQNDdXzQ68wZZhhFy85OTiyNKKdSvRo SDt8Zj3FHzNiM7hdNDHmQhH1LMPoJrMpUNvsCL6Zr7XvhRMlSWn+Jc5VXU5hu7MbCHtoYHIiZK3dth3K UAdBPcBnX7CxxuZ4ZZBeVMSyFj2WHRGsNVWjaVUwNN TnVANHHkTeZ3TtgZ20MIXTAw0+ZTgnaoMcVpfADhYyUFWcx9ObXKo3AX4EVZQsMEj3wZRoWRSaB1Yvj8 VhMi55XWUzLyezCQOojSCDsVqtrqZIciHhhojnZIZqZLLjRT4jNU8yVVOdLDQsTaC5AMNYNV4LDOVtTT CqmZCzUYIqAPQFBH1COUenTDK6UCUmblUtgRFxAKnk JB2WJVImtlKgRSuaYWGYILv+Fk6TPR7om0EmNEktSCQmXT7koq3EOPuMWcOnL4Y9uEIeH0N0NWwqKu9X FDQnHWAtVYkhJBESHHhbRG0EAE4rlsX1AP4QtUBgLRAuISFkvAFdDUy4J88xsGTbCVlcTQ4RHNU+Carlo+ Yq9ZDWFtSYXzUVAcHwRqUSPMGlVtU5HjG2NTo7YnC0 DpHO33qIrmwnShUTjeJZ6DKN3yLTGoHODSSI0ZoCIkiI9glbDtDGXsYPOWXsVyI32diZQgIZZxZYN3KR FaAn3RSRUvY5DiesBwiZlcmcXsHFXqZXYVLM5LHApilnNqqDCxcYviBY54aXkwCQ4NCk0LDkYgXF2yal 2KyJPeOl1VYICiZs5UYKJnWVDkUYGuCDI8HSFkEsDd PFjhROVaYYPfMDA2RPEmWPWlCZ6UScWtYVNjYQyiOEXwGOBhZPTonx3ZONZeWVWeMAj7RDZxRHQoDSLs QVzcODPrMBObZJS6TPXjNSIiUT2GRmFeSUIbDYM6JUKuWGLgFKAcdh7VCWFwRQRhLmIvKQFrHVNeELLf TOlvBYXeSNLyKLN9YFMtCUAxTV4GWhCzHTMvZSUaFo ObCJZgHTNzfn6AETPrCWIvDcX8YLAeATJoGZXbABdtMBSdDMW4ZHKnQXEuDVJfFI1PIdMeSEMcXTT9AD TqDLPdJKJgrv0EVZTeDPWxYVc3XgHrAJBeGBDfCZndWNUqTFY9RDM5JZDaEWUmXB7AUbWbIRZpOVO8Wb JzZDIcTORdia9UFLLiEWJwVsQ7WgTqZVZvIRKnTOwa FTYzKJA7PWYkYDUcYFPgRL0JXxHwWDGsYCulHLucRLJhFJDgey2DIAZrXEXmWvV6KVReZMKqVGMnEVqw GRNgMHJ2CSr2UTSnTRPhZE6HKfRgBAZzBFz2LlceQCAbDWLpuh3PCGWtDDTxOKZmATSrWNAaMGCrLEc4 psXvzGVjJSc9HA2CH7DlhxRwEpWKQw1Tp898PQTaNK OxEu8YF8icBj7nVBAjPOEZOb3NYSl9SivnCpRyCNQ0DlXhTQEnQDJiWVEvPjRqESKbDVUxSmB+IDxjNz SoPIL5PXEeUhLbJNMxFXWuUZPsNQRxRbZzT2E7AL9bBVXBBt0+NFepeOQonTroXDMTXnF3WoVyLFaxWL VPRg0K ID Date Data Source [id number] 04/30/2020 04:05:00 PM EDT [facility] l Name Value Range Interpretation Code Description Data Noreen rce(s) Supporting Document(s) VITAMIN A 33.3 ug/dL 22.0-69.5 [facility] Reference intervals for vitamin A determ ined from [facility]. Individuals with vitamin A less than 20ug/dL are considered vitamin A deficient and those withserum concentrations less than 10 ug/dL are consideredseverely deficient.This test was developed and its performance characteristicsdetermined by [facility]. It has not been cleared orapproved by the Food and Drug Administration.Performed at: [address] [id number] Director: Toby Peralta MD, Phone: [phone] ID Date Data Source [id number] 04/27/2020 08:06:00 AM EDT [facility] l Name Value Range Interpretation Code Description Data Noreen rce(s) Supporting Document(s) VITAMIN D, 25-HYDROXY 35.0 ng/mL 30.0-100.0 [facility] Vitamin D deficiency has been defined by the [place] of[employer] and an Endocrine Society practice guideline as alevel of serum 25-OH vitamin D less than 20 ng/mL (1,2).The Endocrine Society went on to further define vitamin Dinsufficiency as a level between 21 and 29 ng/mL (2).1. IOM ([place] of [employer]). 2010. Dietary reference intakes for calcium and D. [place]: The National Academies Press.2. Rian MF, Lefty NC, Marbin GOYAL, et al. Evaluation, treatment, and prevention of vitamin D deficiency: an Endocrine Society clinical practice guideline. JCEM. 2010; 96(7):1911- 30.Performed at: RN - [facility] [address] [id number] Director: Lu Seay MD, Phone: [phone] ID Date Data Source [id number] 04/28/2020 06:05:00 AM EDT [facility] l Name Value Range Interpretation Code Description Data [facility] rce(s) Supporting Document(s) VITAMIN B12 1305 pg/mL [id number] [facility] Performed at: RN - [facility] [id number] [place], [place] [id number] Director: Lu Seay MD, Phone: [phone] ID Date Data Source [id number] 04/27/2020 08:06:00 AM EDT [facility] Name Value Range Interpretation Code Description Data [facility] rce(s) Supporting Document(s) Vitamin D, 25-Hydroxy 35.0 ng/mL 30.0-100.0 [facility] Vitamin D deficiency has been defined by the [place] of[employer] and an Endocrine Society practice guideline as alevel of serum 25-OH vitamin D less than 20 ng/mL (1,2).The Endocrine Society went on to further define vitamin Dinsufficiency as a level between 21 and 29 ng/mL (2).1. IOM ([place] of [employer]). 2010. Dietary reference intakes for calcium and D. [place]: The National Academies Press.2. Rian MF, Lefty [place], Marbin GOYAL, et al. Evaluation, treatment, and prevention of vitamin D deficiency: an Endocrine Society clinical practice guideline. JCEM. 2010; 96(2):1911-30. ID Date Data Source [id number] 04/28/2020 06:05:00 AM EDT [facility] Name Value Range Interpretation Code Description Data Noreen rce(s) Supporting Document(s) Vitamin B12 1305 pg/mL 232-1245 Above high normal [facility] ID Date Data Source [id number] 04/30/2020 04:05:00 PM EDT [facility] Name Value Range Interpretation Code Description Data Noreen rce(s) Supporting Document(s) Vitamin A 33.3 ug/dL 22.0-69.5 [facility] Reference intervals for vitamin A determ ined from [facility] internalstudies. Individuals with vitamin A less than 20 ug/dL are consideredvitamin A deficient and those with serum concentrations less than10 ug/dL are considered severely deficient. This test was developed and its performance characteristicsdetermined by [facility]. It has not been cleared or approvedby the Food and Drug Administration. ID Date Data Source [id number] 04/26/2020 01:11:00 PM EDT [facility] FAX [phone] Name Value Range Interpretation Code Description Data Noreen rce(s) Supporting Document(s) FERRITIN 25 ng/mL 8-252 [facility] ID Date Data Source [id number] 04/26/2020 01:11:00 PM EDT [facility] FAX [phone] Name Value Range Interpretation Code Description Data Noreen rce(s) Supporting Document(s) IRON 106 ug/dL 50-170 [facility] TIBC 398 ug/dL 250-450 [facility] % SATURATION 27 % 20-50 [facility] ID Date Data Source [id number] 04/26/2020 12:32:00 PM EDT [facility] FAX [phone] Name Value Range Interpretation Code Description Data Noreen rce(s) Supporting Document(s) WHITE BLOOD COUNT 3.8 K/mm3 4.0-10.0 L [facility] RED BLOOD COUNT 4.19 M/mm3 4.00-5.50 [facility] HEMOGLOBIN 13.4 gm/dL 12.0-16.0 [facility] HEMATOCRIT 40.8 % 36.0-48.8 [facility] MEAN CELL VOLUME 97.4 fl 80-96 H [facility] MEAN CORPUSCULAR HEMOGLOBIN 32.0 pg 27.0-31.0 H [facility] MEAN CORPUSCULAR HGB CONC 32.8 g/dl 32.0-36.0 [facility] RED CELL DISTRIBUTION WIDTH 11.5 % 10.0-14.5 [facility] PLATELET COUNT 217 K/mm3 172-450 [facility] ID Date Data Source [id number] 04/26/2020 12:09:00 PM EDT [facility] ([facility] Name Value Range Interpretation Code Description Data Noreen rce(s) Supporting Document(s) Ferritin [Mass/volume] in Serum or Plasma 25 ng/mL 8-937 [facility] ([facility] FAX [phone] Vitamin D, 25-Hydroxy 35.0 ng/mL 30.0-100.0 [facility] ([facility] Vitamin D deficiency has been defined by the [place] of Medicine and an Endocrine Society practice guideline as a level of serum 25-OH vitamin D less than 20 ng/mL (1,2). The Endocrine Society went on to further define vitamin D insufficiency as a level between 21 and 29 ng/mL (2). 1. IOM ([place] of Medicine). 2010. Di etary reference intakes for calcium and D. [place]: The National Academies Press. 2. Rian MC, Lefty BUSTILLO, Efraín santana GOYAL, et al. Evaluation, treatment, and prevention of vitamin D deficiency: an Endocrine Society clinical practice guideline. JCEM. 2010; 96(7):1911-30. Performed at: [facility] [address] [id number] [employer] Supervisor: Lu Seay MD, Phone: [phone] Cobalamin (Vitamin B12) [Mass/volume] in Serum or Plasma 1305 pg /mL 232-1245 Above high normal [facility] ([facility] ) Performed at: [facility] [id number] [employer] Supervisor: Lu Seay MD, Phone: [phone] Retinol [Mass/volume] in Serum or Plasma 33.3 ug/dL 22.0-69.5 [facility] ([facility] Reference intervals for vitamin A determ ined from [facility] internal studies. Individuals with vitamin A less than 20 ug/dL are considered vitamin A deficient and those with serum concentrations less than 10 ug/dL are considered severely deficient. This test was developed and its performance characteristics determined by [facility]. It has not been cleared or approved by the Food and Drug Administration. Performed at: [address] [id number] [employer] Supervisor: Toby Peralta MD, Phone: [phone] ID Date Data Source [id number] 04/26/2020 12:09:00 PM EDT [facility] Name Value Range Interpretation Code Description Data Noreen rce(s) Supporting Document(s) Laboratory test finding (navigational concept) 106 ug/dL 50-170 [facility] ([facility] Tibc 398 ug/dL 250-450 [facility] Laboratory test finding (navigational concept) 27 % 20-50 [facility] ([facility] ID Date Data Source [id number] 04/26/2020 12:09:00 PM EDT [facility] ([facility] Name Value Range Interpretation Code Description Data Noreen rce(s) Supporting Document(s) WBC 3.8 K/mm3 4.0-10.0 Below low normal [facility] ( [facility] RBC 4.19 M/mm3 4.00-5.50 [facility] ([facility] HGB 13.4 gm/dL 12.0-16.0 [facility] ([facility] HCT 40.8 % 36.0-48.8 [facility] MCV 97.4 fl 80-96 Above high normal [facility] MCHC 32.8 g/dL 32.0-36.0 [facility] MCH 32.0 pg 27.0-31.0 Above high normal [facility] ([facility] PLT 217 K/mm3 172-450 [facility] RDW 11.5 % 10.0-14.5 [facility] ([facility] ID Date Data Source [id number] 04/26/2020 07:45:00 AM EDT [facility] Name Value Range Interpretation Code Description Data Noreen rce(s) Supporting Document(s) Follow [facility] QSQPZb0sYpRVZhRjSLAtTlqBKQsnTIsgOMIkZ0F2HTebFj6MLGndpnTdCHKoHv8+FKNlII1qrn5pFSVk gMy [file] t1PYWeNHE0gOpsLeStxL9fBUniaSapV1kEe6hdK+CYBER FORENSIC SPECIALIST/0HQnMqeec//OmBpsXLQyXa4xBZm+A8zw/N6+r ozDo8GTzxCKZDWv7oXDH4NRjPtGoJQQ7ykn1NPyGSG DbSDwAZVK0B+FiB8WGwq5wz35Ftap00rnlfmk4zvBRVGyVDraT51vkomREfD+5H2Cqp9vFFoux6Pxucn AWC10e2xVH65NqR11rTiKPknxYaMm99fwcLeBrXTsSQHJw3hEn6/fP9t2I9gFR2IGXZxkW/L2qd0+Corrina [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 [file] ktfMB3BSRE0OOPiHzCtgnmPfkzjMFC+Wjs88d+JOSÉ/UAh2SIB6sZsyFAP+Cwz/p7pSxfkvsaSm+dibSf [file] svp digital ad sales/RTE+JZ7czQ6EYE18cdPjS12y6FRDhqcL/X93sgug9YquSFLX0CQ5nqpCBLDWswBWPj279AhskRtu4 [file] José+STKIesvljCuAF5yJfavaLxFwBsXycDGQ7wpptva17PIStNILGZZ/RHpa7brgKy9r8HqHD8lUNR+s [file] josé/w66hRQQa0gGJEQo4CTBExi2F2dteev3iftXDUSUpV5VSHV0Vr/Uyvies5P0JQwyz5sdFA0IWkX1d [file] mower sharpener+3vE4avfAMJQcbh27AEBjy/H+wTottNx+4iL+AadeeM76h8GXg//HpglXmkDji6/0JOGoICNQLHKL [file] 9Feqqr/vGYwrsvgI2Cb3yUzK+usqxez2XX/Kurtis/OVQ0VyotnyLD4FCcqpVurftaMwcotX60brFuRjFgNR 9Yq0YLqgb9Ff+Oil Distributor+xCwrTThsYaR2eTaevQ5LKlAhakTB32jzC7sGoWLH75Vdzxodudir71JrRIq6/zs [file] WS2CDGYdmOZqBUCIxoj7ykIu1QSXB2hHTjShDueWm0tt62+Lico/INGjJk+wGhkwp/Oqii7Qp5ieWIx24 xdnJZYOnjTpjt8ido4R43IcW6Rwo8BR2g12hi7Z+3H edBwgs0gyUGB8kynS6Wx+irmvymem+BPGHlsJzCJ98cTvIPMyLOWGK16yHAzMsBhEKwzdKEwrwHmBgFq 7oTYMlh8s0q1d5w2Kil+a37ZPCLINdrYmvU3U0SXehc+czaE5Cr7tPPqrzTLPpcS/B8F4HJWh8XjMBhE 59We324bLXj/UzxD3CkRL5DBnxBgo+vjQfH+RK+qem WppjfIejninAXcvI6aoeInUMeXSJM2xK+czXIVbABEIjPEdtDPXfb82WZt4s7eLYsmDbahSS+IFCeugv Vai80xNL3EGGb9wpeaFnuyLUkM1PLjPKa124wxsslPlcKXaexUe6uFqdWEATE0u0CgTXG0kz51GMQeMj VRKxV70KHuKzoJyWTvnEweZV/sRefenvH5/9okQLQ3 k2uoE/yLUyJ60wwdugPc/dFV1jwcbti2pJ2cOw6e6aYOy2vKoXnIxmRi/oh44YkXBaSgQ5Fp9w63/[facility] [place] [place] [file] WyL/zb4nEsxCc31FOUCpNF1rJ2FEfDAlJGo4zo10G8IffTe01HUPPU5ODYR4fz0lvAFBHzBhJzh/CYBER FORENSIC SPECIALIST/i TeauhbvQt+DVaLEx+H0qbgXvNPYchiRTTpITCoeWl9iJavvNfx3kvRb4cLBtuCGIDHPBWF7PJveePPKn 8qE9xZe+NOeCZBCe1GAXYTTsWHhloFys8a4+k/x7fh jUQmriZ6QI8j4TxlDyGtYp+4ac2qNk7AxsgvJZ/8EbMpMdOMJViQOomWL0OD814u62si0OKR7/o+fm2n sTBWK/KdTyAOUa9GQfxSc4kiBLxVi6UYRLndFAPpm8slk70YHmEnfSUm9FNG6LwWlC7zsG2Mqxjgb7ZJ r/kWhF3pQuVoYk29AuiicT9j/rEoCse88sKOIgiEpE 06vK/TkMAffj8vzRuVrPtDpotfTfOU5IgtVt+4pu7GhDnqT23winwpdxlAqn3tvHTCiYPvvOelXKTq9u GH9WM6n4hi5X2t9PGb0ckRCQBLTKsABq/40EOA7JBc/oAmHaN0iP2ZNC9jX+Crf1MIL/9V6YRUxRUCo4 Hx3XLwOl1YYMO3dtdjrSAB66LVUuwr0pEpiBVHdsjR Dq9ypIYRy8vfsyqEpzMkozgqJfKEuZJ+vnewSzSDc+1zCjkBce1919CazrufwhSVOMWLzB4+4RtNZBaM SsmpBKC/WDJ1V+H+GK/pBLOtcv0afmIvuijiMK2gjIpOOifuUc2Lp2J84ReCJ8hmQ/kDgZA1zCnAjkOL CnNqo/pTANbEfOG0zBoUoRa8M2BHkg7wIVgm2PzK6C WS5YqUnDs7Xw0Zw/27d+/8ekbxxN27VO+kWlUNWkd4BxcSTFZPOU/SJyomwRulWt2eSNFXNU7hx0es+N mIarMV4Cxnyh0hgS+SQor8Jq6UQ+NklNs7PzKPi9HM+M5fixTLT4Q0ao1fFyph8lpbneLfIUFG5eksHu YTm8kfm/Iman/eeY/A1F3Yt9jRKT8H99X69msjrAKuQy [file] LAUNDRY SORTER+6ugqtjlqBwatpa30hj87IwOLOmpXeFwGCVBIlk5TP3cUjS9w6I3UiXN6cVrv5OfnSDRysHpimYYQi [file] svp digital ad sales/5KVJQhEWnttLvCeyqyIcx2GOUfPvQUVS8+RG00U+iwWXEhmgs7A8J3JLp3E0Vt0g9QzEJCnCejeqY [file] TEWbFODv0isl75phdNX4cwWpMDOVKoEDlO0BQtB0CxS1OZeyqtVGYVDa+HtmuC8FLXP/nUhEWa90X+Entry Level Web Developer [file] pXGVY4yZ33moHZ5/care home+Mffn6+OWwipGaUR/dVxrrbS1RzYnrJN+fr/tO3UKqDhhaBb5qfWqLlk7nu2 [file] Pilar/CLHMH9PiGlj6+2g4UcgkcG7PW+Kz6yfjPEnt+L 0A6mLb8tYpP2OvJQI7bkGVpVEt9V9TSVLR3Q44RSgUN3YnI0RMQupC1UL50TYJCRsiawFX4E2BJQTeLd Q4iSrVSI6MNuPxYvsCkHBtBtgh9A+jVrx2bXVcjDzCPQ9W0j8y9oVASI0bFsmmV1o5EmBjhyNMSMcby4 hGLPub5uRLrdYY5m+ZgHspG+dWpxmMzaf0lIkaJaCx vl79MJDzgz1jThJAhd96Twznj5UdKyQtovxHQEJ4FDy/iWAbQ9K/5bgx5j+tlPmfyHMcL/mhZBTW0u5M A4Gfq6MSLng7JDIjDpqTXa8qCVG7/4e1/nnHVXxgcy8k8mMeh8S+F94VQ3qbwNIfinXUt/8vUv+FfkU7 t7D6v0p8xFOBd15UWfT5L8VOYGMflVXI2dH/xYELi9 yNJpAzfvY5vRUOU5w5rmZwuIW1y+B7YXBq8coedsqR6THQauVfj2zqqUOMt+TObr4kK7zF/BRCAG0/slip feeder [file] 6MrGGb1cKelAiu1BKcNn1TguWpijQWNsh455j2/CbccP+3aSEM5cEmn9SZcL2swCLUW401L4pW+wIE9PmUTqR/Tf9hwm2GJQDZnb9pUFp+7gFQkIVDor86 iZRnp3eyqNUOXz16XQisaBjRbn8b9ynfkNPHfwKxTymx9UdiOVaxm1KoDPhomD3mCuge4AlH5qwFFj3s 3DdPersPst6Cd8GXyr7EY55Mbkw+IBT280f1t5B818 DWkqOqJEn/Maria [place]+6gb99g0nnR3gckjFX0n9B+tULmbPga4RfJN4SqOFuvyc6FNCRxazTvWLz57vvfT3Vf [file] 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 Painting Machine Operator/TB8ZGrGOGTowB+vUbAM0RSoE2BOWxHtChb7je7NqBmWwpEZ1MBTBf9r9zgxhiReBDPhNVS8MqR73 [file] +33POzfcHnDF+F+qmNy2u9wq2e0jh03qzdIHYvd [file] HTDE7lmB0etRjK4QKI3ia7CoYUXwGBalbgIpJbyXIXqwtCXswOvnAUFYBfQlPZToFoXMJjIiFQ2P ID Date Data Source [id number] 04/25/2020 09:50:59 AM EDT [facility] Name Value Range Interpretation Code Description Data Noreen rce(s) Supporting Document(s) Progress Note [facility] SRERIl9iIzPOZhIs45/FCQogTKIgc4WxONhqMCa6XOccOQPjJ9BgQIC2xN0uUNI9RLrOAhMeBsFmASQ1 lbm [file] NJH4VHVvQsJcDR0LWq8FVpK8LOO9gUZzYw4EZPw6MIZEGlWoOW3LFSh= ID Date Data Source [id number] 03/22/2020 08:41:00 AM EDT [facility] Patient: JOHNSON HUGHES Observati on Report - Physicians/Mid Levels [place].VisitID: [id number] [place] [address] [phone], [facility] Date/Time: 03/22/2020 07:40 Weight:90.7 kg (S). Height/Length:64 inches (S). BMI:34.3 PAST HISTORYProblems:Back Pain [Chronic].Breast Cancer. (In process of diagnosis currently (right side))Tendonitis.Sciatica.Arthritis.Knee Effusion.Myofascial Strain [Intermittent].Contusion [Resolved].Gastroenteritis [Resolved].Contusion [Resolved].Abnormal Liver Function Test [Resolved].Cholecystitis [Resolved].Knee Injury [Resolved].Vomiting [Resolved].Neck Injury Risk Factors [Resolved]. Additional Surgeries:Ankle . (Rigth side fracture repair)Appendectomy.Back Surgery.Cholecystectomy.Colonoscopy.Gastric bypass.Hysterectomy.Knee Surgery. Medications:Biotin Oral (Tablet 24703 mcg) 1 tablet, daily, last dose today.Multivitamin Oral 1 tab , daily, last dose today.Vitamin D Oral 1 capsule, daily, last dose today. Allergies:'fresh fruits and vegetables' .(Anaphylaxis)Morphine.(vomiting)Tetanus shot.(rash, swelling)Tramadol.(hives, itching, rash) (chest pressure)Tree nuts.(angioedema, itching). FAMILY HISTORYNo significant family medical history. (Electronically signed by Shakila Preciado P.A. 03/22/2020 08:34) Name Value Range Interpretation Code Description Data [facility]) Supporting Document(s) ID Date Data Source [id number] 03/01/2020 01:13:00 PM EDT [facility] ([facility], ) Name Value Range Interpretation Code Description Data [facility]) Supporting Document(s) Surgical pathology study Laboratory test result [facility] ([facility], ) FINAL DIAGNOSIS Right axillary lymph node, image guided biopsy: Cores and fragments of benign lymph node and mature adipose tissue. 03/03/2020 - 1028 CLINICAL DIAGNOSIS Right axillary adenopathy 03/02/2020726 GROSS DIAGNOSIS Received in formalin labeled "right axillary lymph node" are several fragments of pink-rodriguez soft tissue cores ranging from 0.2 to 0.8 cm in length. All in one. -STEPHAN 03/02/2020 - 726 Signed Amy Schmitz MD 03/03/2020 1317 ID Date Data Source [id number] 12/03/2019 09:17:00 AM EDT [facility] ([facility] Name Value Range Interpretation Code Description Data Noreen rce(s) Supporting Document(s) BUN 7 mg/dL 8-23 Below low normal [facility] ([facility] CHRONIC KIDNEY DISEASE STAGING PER NKF: MALE [...] mL/min Normal 80 and above >32 mL/min NormalNORMAL RANGES Age WBC RBC HGB HCT MCV PLT Adult M 4.1-10.9 4.20-6.30 12.0-18.0 37.0-51.0 80-97 140-440 Adult F 4.1-10.9 4.04-5.48 12.0-18.0 37.0-51.0 80-97 140-440 0- 1 Yr 5.0-20.0 3.9-5.9 15-18 MV: 44 MV: 91 MV: 277 2-9 Yr. 6.0-17.0 3.8-5.4 11-13 MV: 37 MV: 78 MV: 300 10 Yrs. 5.0-13.0 3.8-5.4 12-15 MV: 39 MV: 80 MV: 250 NOTE: * FOR ADULT BLACK MALES AND FEMALES, NORMAL WBC IS 2.9-7.7 K/ML * FOR ADULT BLACK MALES AND FEMALES, NORMAL RBC,HGB, AND HCT IS 5% LESS SOURCE FOR DATA: NATALYA DYN 1800 OPERATION MANUAL( AUTOMATED BLOOD COUNTS AND DIFF.) APPENDIX B-3 Glu 96 mg/dL 70-110 [facility] ([facility] CHRONIC KIDNEY DISEASE STAGING PER NKF: MALE [...] mL/min Normal 80 and above >32 mL/min NormalNORMAL RANGES Age WBC RBC HGB HCT MCV PLT Adult M 4.1-10.9 4.20-6.30 12.0-18.0 37.0-51.0 80-97 140-440 Adult F 4.1-10.9 4.04-5.48 12.0-18.0 37.0-51.0 80-97 140-440 0- 1 Yr 5.0-20.0 3.9-5.9 15-18 MV: 44 MV: 91 MV: 277 2-9 Yr. 6.0-17.0 3.8-5.4 11-13 MV: 37 MV: 78 MV: 300 10 Yrs. 5.0-13.0 3.8-5.4 12-15 MV: 39 MV: 80 MV: 250 NOTE: * FOR ADULT BLACK MALES AND FEMALES, NORMAL WBC IS 2.9-7.7 K/ML * FOR ADULT BLACK MALES AND FEMALES, NORMAL RBC,HGB, AND HCT IS 5% LESS SOURCE FOR DATA: [employer] Sample 1800 OPERATION MANUAL( AUTOMATED BLOOD COUNTS AND DIFF.) APPENDIX B-3 Na 139 mmol/L 136-145 [facility] ([facility] CHRONIC KIDNEY DISEASE STAGING PER NKF: MALE [...] mL/min Normal 80 and above >32 mL/min NormalNORMAL RANGES Age WBC RBC HGB HCT MCV PLT Adult M 4.1-10.9 4.20-6.30 12.0-18.0 37.0-51.0 80-97 140-440 Adult F 4.1-10.9 4.04-5.48 12.0-18.0 37.0-51.0 80-97 140-440 0- 1 Yr 5.0-20.0 3.9-5.9 15-18 MV: 44 MV: 91 MV: 277 2-9 Yr. 6.0-17.0 3.8-5.4 11-13 MV: 37 MV: 78 MV: 300 10 Yrs. 5.0-13.0 3.8-5.4 12-15 MV: 39 MV: 80 MV: 250 NOTE: * FOR ADULT BLACK MALES AND FEMALES, NORMAL WBC IS 2.9-7.7 K/ML * FOR ADULT BLACK MALES AND FEMALES, NORMAL RBC,HGB, AND HCT IS 5% LESS SOURCE FOR DATA: Federated Sample 1800 OPERATION MANUAL( AUTOMATED BLOOD COUNTS AND DIFF.) APPENDIX B-3 Creat 0.7 mg/dL 0.5-1.0 [facility] ([facility] CHRONIC KIDNEY DISEASE STAGING PER NKF: MALE [...] mL/min Normal 80 and above >32 mL/min NormalNORMAL RANGES Age WBC RBC HGB HCT MCV PLT Adult M 4.1-10.9 4.20-6.30 12.0-18.0 37.0-51.0 80-97 140-440 Adult F 4.1-10.9 4.04-5.48 12.0-18.0 37.0-51.0 80-97 140-440 0- 1 Yr 5.0-20.0 3.9-5.9 15-18 MV: 44 MV: 91 MV: 277 2-9 Yr. 6.0-17.0 3.8-5.4 11-13 MV: 37 MV: 78 MV: 300 10 Yrs. 5.0-13.0 3.8-5.4 12-15 MV: 39 MV: 80 MV: 250 NOTE: * FOR ADULT BLACK MALES AND FEMALES, NORMAL WBC IS 2.9-7.7 K/ML * FOR ADULT BLACK MALES AND FEMALES, NORMAL RBC,HGB, AND HCT IS 5% LESS SOURCE FOR DATA: Federated Sample 1800 OPERATION MANUAL( AUTOMATED BLOOD COUNTS AND DIFF.) APPENDIX B-3 BUN/Creatinine Ratio 10.3 [facility] ([facility] CHRONIC KIDNEY DISEASE STAGING PER NKF: MALE [...] mL/min Normal 80 and above >32 mL/min NormalNORMAL RANGES Age WBC RBC HGB HCT MCV PLT Adult M 4.1-10.9 4.20-6.30 12.0-18.0 37.0-51.0 80-97 140-440 Adult F 4.1-10.9 4.04-5.48 12.0-18.0 37.0-51.0 80-97 140-440 0- 1 Yr 5.0-20.0 3.9-5.9 15-18 MV: 44 MV: 91 MV: 277 2-9 Yr. 6.0-17.0 3.8-5.4 11-13 MV: 37 MV: 78 MV: 300 10 Yrs. 5.0-13.0 3.8-5.4 12-15 MV: 39 MV: 80 MV: 250 NOTE: * FOR ADULT BLACK MALES AND FEMALES, NORMAL WBC IS 2.9-7.7 K/ML * FOR ADULT BLACK MALES AND FEMALES, NORMAL RBC,HGB, AND HCT IS 5% LESS SOURCE FOR DATA: NATALYA DYN 1800 OPERATION MANUAL( AUTOMATED BLOOD COUNTS AND DIFF.) APPENDIX B-3 CL 102.5 mmol/L 98.0-107.0 [facility] ([facility] CHRONIC KIDNEY DISEASE STAGING PER NKF: MALE [...] mL/min Normal 80 and above >32 mL/min NormalNORMAL RANGES Age WBC RBC HGB HCT MCV PLT Adult M 4.1-10.9 4.20-6.30 12.0-18.0 37.0-51.0 80-97 140-440 Adult F 4.1-10.9 4.04-5.48 12.0-18.0 37.0-51.0 80-97 140-440 0- 1 Yr 5.0-20.0 3.9-5.9 15-18 MV: 44 MV: 91 MV: 277 2-9 Yr. 6.0-17.0 3.8-5.4 11-13 MV: 37 MV: 78 MV: 300 10 Yrs. 5.0-13.0 3.8-5.4 12-15 MV: 39 MV: 80 MV: 250 NOTE: * FOR ADULT BLACK MALES AND FEMALES, NORMAL WBC IS 2.9-7.7 K/ML * FOR ADULT BLACK MALES AND FEMALES, NORMAL RBC,HGB, AND HCT IS 5% LESS SOURCE FOR DATA: NATALYA DYN 1800 OPERATION MANUAL( AUTOMATED BLOOD COUNTS AND DIFF.) APPENDIX B-3 Co2 26.3 mmol/L 22.0-29.0 [facility] ([facility] CHRONIC KIDNEY DISEASE STAGING PER NKF: MALE [...] mL/min Normal 80 and above >32 mL/min NormalNORMAL RANGES Age WBC RBC HGB HCT MCV PLT Adult M 4.1-10.9 4.20-6.30 12.0-18.0 37.0-51.0 80-97 140-440 Adult F 4.1-10.9 4.04-5.48 12.0-18.0 37.0-51.0 80-97 140-440 0- 1 Yr 5.0-20.0 3.9-5.9 15-18 MV: 44 MV: 91 MV: 277 2-9 Yr. 6.0-17.0 3.8-5.4 11-13 MV: 37 MV: 78 MV: 300 10 Yrs. 5.0-13.0 3.8-5.4 12-15 MV: 39 MV: 80 MV: 250 NOTE: * FOR ADULT BLACK MALES AND FEMALES, NORMAL WBC IS 2.9-7.7 K/ML * FOR ADULT BLACK MALES AND FEMALES, NORMAL RBC,HGB, AND HCT IS 5% LESS SOURCE FOR DATA: [employer] DYN 1800 OPERATION MANUAL( AUTOMATED BLOOD COUNTS AND DIFF.) APPENDIX B-3 K 4.6 mmol/L 3.5-5.1 [facility] ([facility] CHRONIC KIDNEY DISEASE STAGING PER NKF: MALE [...] mL/min Normal 80 and above >32 mL/min NormalNORMAL RANGES Age WBC RBC HGB HCT MCV PLT Adult M 4.1-10.9 4.20-6.30 12.0-18.0 37.0-51.0 80-97 140-440 Adult F 4.1-10.9 4.04-5.48 12.0-18.0 37.0-51.0 80-97 140-440 0- 1 Yr 5.0-20.0 3.9-5.9 15-18 MV: 44 MV: 91 MV: 277 2-9 Yr. 6.0-17.0 3.8-5.4 11-13 MV: 37 MV: 78 MV: 300 10 Yrs. 5.0-13.0 3.8-5.4 12-15 MV: 39 MV: 80 MV: 250 NOTE: * FOR ADULT BLACK MALES AND FEMALES, NORMAL WBC IS 2.9-7.7 K/ML * FOR ADULT BLACK MALES AND FEMALES, NORMAL RBC,HGB, AND HCT IS 5% LESS SOURCE FOR DATA: NATALYA DYN 1800 OPERATION MANUAL( AUTOMATED BLOOD COUNTS AND DIFF.) APPENDIX B-3 Alb 4.1 g/dL 3.4-4.8 [facility] CHRONIC KIDNEY DISEASE STAGING PER NKF: MALE [...] mL/min Normal 80 and above >32 mL/min NormalNORMAL RANGES Age WBC RBC HGB HCT MCV PLT Adult M 4.1-10.9 4.20-6.30 12.0-18.0 37.0-51.0 80-97 140-440 Adult F 4.1-10.9 4.04-5.48 12.0-18.0 37.0-51.0 80-97 140-440 0- 1 Yr 5.0-20.0 3.9-5.9 15-18 MV: 44 MV: 91 MV: 277 2-9 Yr. 6.0-17.0 3.8-5.4 11-13 MV: 37 MV: 78 MV: 300 10 Yrs. 5.0-13.0 3.8-5.4 12-15 MV: 39 MV: 80 MV: 250 NOTE: * FOR ADULT BLACK MALES AND FEMALES, NORMAL WBC IS 2.9-7.7 K/ML * FOR ADULT BLACK MALES AND FEMALES, NORMAL RBC,HGB, AND HCT IS 5% LESS SOURCE FOR DATA: NATALYA DYN 1800 OPERATION MANUAL( AUTOMATED BLOOD COUNTS AND DIFF.) APPENDIX B-3 CA 9.7 mg/dL 8.6-10.2 [facility] ([facility] CHRONIC KIDNEY DISEASE STAGING PER NKF: MALE [...] mL/min Normal 80 and above >32 mL/min NormalNORMAL RANGES Age WBC RBC HGB HCT MCV PLT Adult M 4.1-10.9 4.20-6.30 12.0-18.0 37.0-51.0 80-97 140-440 Adult F 4.1-10.9 4.04-5.48 12.0-18.0 37.0-51.0 80-97 140-440 0- 1 Yr 5.0-20.0 3.9-5.9 15-18 MV: 44 MV: 91 MV: 277 2-9 Yr. 6.0-17.0 3.8-5.4 11-13 MV: 37 MV: 78 MV: 300 10 Yrs. 5.0-13.0 3.8-5.4 12-15 MV: 39 MV: 80 MV: 250 NOTE: * FOR ADULT BLACK MALES AND FEMALES, NORMAL WBC IS 2.9-7.7 K/ML * FOR ADULT BLACK MALES AND FEMALES, NORMAL RBC,HGB, AND HCT IS 5% LESS SOURCE FOR DATA: [employer] 1800 OPERATION MANUAL( AUTOMATED BLOOD COUNTS AND DIFF.) APPENDIX B-3 TP 6.5 g/dL 6.6-8.7 Below low normal [facility] ( [facility] CHRONIC KIDNEY DISEASE STAGING PER NKF: MALE [...] mL/min Normal 80 and above >32 mL/min NormalNORMAL RANGES Age WBC RBC HGB HCT MCV PLT Adult M 4.1-10.9 4.20-6.30 12.0-18.0 37.0-51.0 80-97 140-440 Adult F 4.1-10.9 4.04-5.48 12.0-18.0 37.0-51.0 80-97 140-440 0- 1 Yr 5.0-20.0 3.9-5.9 15-18 MV: 44 MV: 91 MV: 277 2-9 Yr. 6.0-17.0 3.8-5.4 11-13 MV: 37 MV: 78 MV: 300 10 Yrs. 5.0-13.0 3.8-5.4 12-15 MV: 39 MV: 80 MV: 250 NOTE: * FOR ADULT BLACK MALES AND FEMALES, NORMAL WBC IS 2.9-7.7 K/ML * FOR ADULT BLACK MALES AND FEMALES, NORMAL RBC,HGB, AND HCT IS 5% LESS SOURCE FOR DATA: [employer] Sample 1800 OPERATION MANUAL( AUTOMATED BLOOD COUNTS AND DIFF.) APPENDIX B-3 Globulin 2.4 CALC [employer] ([facility] CHRONIC KIDNEY DISEASE STAGING PER NKF: MALE [...] mL/min Normal 80 and above >32 mL/min NormalNORMAL RANGES Age WBC RBC HGB HCT MCV PLT Adult M 4.1-10.9 4.20-6.30 12.0-18.0 37.0-51.0 80-97 140-440 Adult F 4.1-10.9 4.04-5.48 12.0-18.0 37.0-51.0 80-97 140-440 0- 1 Yr 5.0-20.0 3.9-5.9 15-18 MV: 44 MV: 91 MV: 277 2-9 Yr. 6.0-17.0 3.8-5.4 11-13 MV: 37 MV: 78 MV: 300 10 Yrs. 5.0-13.0 3.8-5.4 12-15 MV: 39 MV: 80 MV: 250 NOTE: * FOR ADULT BLACK MALES AND FEMALES, NORMAL WBC IS 2.9-7.7 K/ML * FOR ADULT BLACK MALES AND FEMALES, NORMAL RBC,HGB, AND HCT IS 5% LESS SOURCE FOR DATA: [employer] Sample 1800 OPERATION MANUAL( AUTOMATED BLOOD COUNTS AND DIFF.) APPENDIX B-3 A/G Ratio 1.7 CALC [facility] ([facility] CHRONIC KIDNEY DISEASE STAGING PER NKF: MALE [...] mL/min Normal 80 and above >32 mL/min NormalNORMAL RANGES Age WBC RBC HGB HCT MCV PLT Adult M 4.1-10.9 4.20-6.30 12.0-18.0 37.0-51.0 80-97 140-440 Adult F 4.1-10.9 4.04-5.48 12.0-18.0 37.0-51.0 80-97 140-440 0- 1 Yr 5.0-20.0 3.9-5.9 15-18 MV: 44 MV: 91 MV: 277 2-9 Yr. 6.0-17.0 3.8-5.4 11-13 MV: 37 MV: 78 MV: 300 10 Yrs. 5.0-13.0 3.8-5.4 12-15 MV: 39 MV: 80 MV: 250 NOTE: * FOR ADULT BLACK MALES AND FEMALES, NORMAL WBC IS 2.9-7.7 K/ML * FOR ADULT BLACK MALES AND FEMALES, NORMAL RBC,HGB, AND HCT IS 5% LESS SOURCE FOR DATA: [employer]erated Sample 1800 OPERATION MANUAL( AUTOMATED BLOOD COUNTS AND DIFF.) APPENDIX B-3 Alp 91.1 U/L 35-129 [facility] ([facility] CHRONIC KIDNEY DISEASE STAGING PER NKF: MALE [...] mL/min Normal 80 and above >32 mL/min NormalNORMAL RANGES Age WBC RBC HGB HCT MCV PLT Adult M 4.1-10.9 4.20-6.30 12.0-18.0 37.0-51.0 80-97 140-440 Adult F 4.1-10.9 4.04-5.48 12.0-18.0 37.0-51.0 80-97 140-440 0- 1 Yr 5.0-20.0 3.9-5.9 15-18 MV: 44 MV: 91 MV: 277 2-9 Yr. 6.0-17.0 3.8-5.4 11-13 MV: 37 MV: 78 MV: 300 10 Yrs. 5.0-13.0 3.8-5.4 12-15 MV: 39 MV: 80 MV: 250 NOTE: * FOR ADULT BLACK MALES AND FEMALES, NORMAL WBC IS 2.9-7.7 K/ML * FOR ADULT BLACK MALES AND FEMALES, NORMAL RBC,HGB, AND HCT IS 5% LESS SOURCE FOR DATA: [employer] DYN 1800 OPERATION MANUAL( AUTOMATED BLOOD COUNTS AND DIFF.) APPENDIX B-3 Alt (SGPT) 11 U/L 0-41 [facility] ([facility] CHRONIC KIDNEY DISEASE STAGING PER NKF: MALE [...] mL/min Normal 80 and above >32 mL/min NormalNORMAL RANGES Age WBC RBC HGB HCT MCV PLT Adult M 4.1-10.9 4.20-6.30 12.0-18.0 37.0-51.0 80-97 140-440 Adult F 4.1-10.9 4.04-5.48 12.0-18.0 37.0-51.0 80-97 140-440 0- 1 Yr 5.0-20.0 3.9-5.9 15-18 MV: 44 MV: 91 MV: 277 2-9 Yr. 6.0-17.0 3.8-5.4 11-13 MV: 37 MV: 78 MV: 300 10 Yrs. 5.0-13.0 3.8-5.4 12-15 MV: 39 MV: 80 MV: 250 NOTE: * FOR ADULT BLACK MALES AND FEMALES, NORMAL WBC IS 2.9-7.7 K/ML * FOR ADULT BLACK MALES AND FEMALES, NORMAL RBC,HGB, AND HCT IS 5% LESS SOURCE FOR DATA: NATALYA DYN 1800 OPERATION MANUAL( AUTOMATED BLOOD COUNTS AND DIFF.) APPENDIX B-3 Tbili 0.62 mg/dL 0.0-1.2 [facility] ([facility] CHRONIC KIDNEY DISEASE STAGING PER NKF: MALE [...] mL/min Normal 80 and above >32 mL/min NormalNORMAL RANGES Age WBC RBC HGB HCT MCV PLT Adult M 4.1-10.9 4.20-6.30 12.0-18.0 37.0-51.0 80-97 140-440 Adult F 4.1-10.9 4.04-5.48 12.0-18.0 37.0-51.0 80-97 140-440 0- 1 Yr 5.0-20.0 3.9-5.9 15-18 MV: 44 MV: 91 MV: 277 2-9 Yr. 6.0-17.0 3.8-5.4 11-13 MV: 37 MV: 78 MV: 300 10 Yrs. 5.0-13.0 3.8-5.4 12-15 MV: 39 MV: 80 MV: 250 NOTE: * FOR ADULT BLACK MALES AND FEMALES, NORMAL WBC IS 2.9-7.7 K/ML * FOR ADULT BLACK MALES AND FEMALES, NORMAL RBC,HGB, AND HCT IS 5% LESS SOURCE FOR DATA: Tubular Labs DYN 1800 OPERATION MANUAL( AUTOMATED BLOOD COUNTS AND DIFF.) APPENDIX B-3 Ast (Sgot) 18 U/L 0-40 [facility] CHRONIC KIDNEY DISEASE STAGING PER NKF: MALE [...] mL/min Normal 80 and above >32 mL/min NormalNORMAL RANGES Age WBC RBC HGB HCT MCV PLT Adult M 4.1-10.9 4.20-6.30 12.0-18.0 37.0-51.0 80-97 140-440 Adult F 4.1-10.9 4.04-5.48 12.0-18.0 37.0-51.0 80-97 140-440 0- 1 Yr 5.0-20.0 3.9-5.9 15-18 MV: 44 MV: 91 MV: 277 2-9 Yr. 6.0-17.0 3.8-5.4 11-13 MV: 37 MV: 78 MV: 300 10 Yrs. 5.0-13.0 3.8-5.4 12-15 MV: 39 MV: 80 MV: 250 NOTE: * FOR ADULT BLACK MALES AND FEMALES, NORMAL WBC IS 2.9-7.7 K/ML * FOR ADULT BLACK MALES AND FEMALES, NORMAL RBC,HGB, AND HCT IS 5% LESS SOURCE FOR DATA: Tubular Labs DYN 1800 OPERATION MANUAL( AUTOMATED BLOOD COUNTS AND DIFF.) APPENDIX B-3 Anion Gap 15 mmol/L [facility] CHRONIC KIDNEY DISEASE STAGING PER NKF: MALE [...] mL/min Normal 80 and above >32 mL/min NormalNORMAL RANGES Age WBC RBC HGB HCT MCV PLT Adult M 4.1-10.9 4.20-6.30 12.0-18.0 37.0-51.0 80-97 140-440 Adult F 4.1-10.9 4.04-5.48 12.0-18.0 37.0-51.0 80-97 140-440 0- 1 Yr 5.0-20.0 3.9-5.9 15-18 MV: 44 MV: 91 MV: 277 2-9 Yr. 6.0-17.0 3.8-5.4 11-13 MV: 37 MV: 78 MV: 300 10 Yrs. 5.0-13.0 3.8-5.4 12-15 MV: 39 MV: 80 MV: 250 NOTE: * FOR ADULT BLACK MALES AND FEMALES, NORMAL WBC IS 2.9-7.7 K/ML * FOR ADULT BLACK MALES AND FEMALES, NORMAL RBC,HGB, AND HCT IS 5% LESS SOURCE FOR DATA: Federated Sample 1800 OPERATION MANUAL( AUTOMATED BLOOD COUNTS AND DIFF.) APPENDIX B-3 eGFR 105 # [facility] ( [facility] CHRONIC KIDNEY DISEASE STAGING PER NKF: MALE [...] mL/min Normal 80 and above >32 mL/min NormalNORMAL RANGES Age WBC RBC HGB HCT MCV PLT Adult M 4.1-10.9 4.20-6.30 12.0-18.0 37.0-51.0 80-97 140-440 Adult F 4.1-10.9 4.04-5.48 12.0-18.0 37.0-51.0 80-97 140-440 0- 1 Yr 5.0-20.0 3.9-5.9 15-18 MV: 44 MV: 91 MV: 277 2-9 Yr. 6.0-17.0 3.8-5.4 11-13 MV: 37 MV: 78 MV: 300 10 Yrs. 5.0-13.0 3.8-5.4 12-15 MV: 39 MV: 80 MV: 250 NOTE: * FOR ADULT BLACK MALES AND FEMALES, NORMAL WBC IS 2.9-7.7 K/ML * FOR ADULT BLACK MALES AND FEMALES, NORMAL RBC,HGB, AND HCT IS 5% LESS SOURCE FOR DATA: NATALYA DYN 1800 OPERATION MANUAL( AUTOMATED BLOOD COUNTS AND DIFF.) APPENDIX B-3 Osmolality-Calculated 274.8 [facility] ([facility] CHRONIC KIDNEY DISEASE STAGING PER NKF: MALE [...] mL/min Normal 80 and above >32 mL/min NormalNORMAL RANGES Age WBC RBC HGB HCT MCV PLT Adult M 4.1-10.9 4.20-6.30 12.0-18.0 37.0-51.0 80-97 140-440 Adult F 4.1-10.9 4.04-5.48 12.0-18.0 37.0-51.0 80-97 140-440 0- 1 Yr 5.0-20.0 3.9-5.9 15-18 MV: 44 MV: 91 MV: 277 2-9 Yr. 6.0-17.0 3.8-5.4 11-13 MV: 37 MV: 78 MV: 300 10 Yrs. 5.0-13.0 3.8-5.4 12-15 MV: 39 MV: 80 MV: 250 NOTE: * FOR ADULT BLACK MALES AND FEMALES, NORMAL WBC IS 2.9-7.7 K/ML * FOR ADULT BLACK MALES AND FEMALES, NORMAL RBC,HGB, AND HCT IS 5% LESS SOURCE FOR DATA: Tubular Labs DYN 1800 OPERATION MANUAL( AUTOMATED BLOOD COUNTS AND DIFF.) APPENDIX B-3 eGFR Non-Afr. Salvadorean 90 # [facility] ([facility] CHRONIC KIDNEY DISEASE STAGING PER NKF: MALE [...] mL/min Normal 80 and above >32 mL/min NormalNORMAL RANGES Age WBC RBC HGB HCT MCV PLT Adult M 4.1-10.9 4.20-6.30 12.0-18.0 37.0-51.0 80-97 140-440 Adult F 4.1-10.9 4.04-5.48 12.0-18.0 37.0-51.0 80-97 140-440 0- 1 Yr 5.0-20.0 3.9-5.9 15-18 MV: 44 MV: 91 MV: 277 2-9 Yr. 6.0-17.0 3.8-5.4 11-13 MV: 37 MV: 78 MV: 300 10 Yrs. 5.0-13.0 3.8-5.4 12-15 MV: 39 MV: 80 MV: 250 NOTE: * FOR ADULT BLACK MALES AND FEMALES, NORMAL WBC IS 2.9-7.7 K/ML * FOR ADULT BLACK MALES AND FEMALES, NORMAL RBC,HGB, AND HCT IS 5% LESS SOURCE FOR DATA: Federated Sample 1800 OPERATION MANUAL( AUTOMATED BLOOD COUNTS AND DIFF.) APPENDIX B-3 ID Date Data Source [id number] 12/03/2019 09:17:00 AM EDT [facility] ([facility] Name Value Range Interpretation Code Description Data Noreen rce(s) Supporting Document(s) WBC 4.2 10E3/uL 4.1-10.9 [facility] ([facility] CHRONIC KIDNEY DISEASE STAGING PER NKF: MALE [...] mL/min Normal 80 and above >32 mL/min NormalNORMAL RANGES Age WBC RBC HGB HCT MCV PLT Adult M 4.1-10.9 4.20-6.30 12.0-18.0 37.0-51.0 80-97 140-440 Adult F 4.1-10.9 4.04-5.48 12.0-18.0 37.0-51.0 80-97 140-440 0- 1 Yr 5.0-20.0 3.9-5.9 15-18 MV: 44 MV: 91 MV: 277 2-9 Yr. 6.0-17.0 3.8-5.4 11-13 MV: 37 MV: 78 MV: 300 10 Yrs. 5.0-13.0 3.8-5.4 12-15 MV: 39 MV: 80 MV: 250 NOTE: * FOR ADULT BLACK MALES AND FEMALES, NORMAL WBC IS 2.9-7.7 K/ML * FOR ADULT BLACK MALES AND FEMALES, NORMAL RBC,HGB, AND HCT IS 5% LESS SOURCE FOR DATA: Federated Sample 1800 OPERATION MANUAL( AUTOMATED BLOOD COUNTS AND DIFF.) APPENDIX B-3 HGB 14.3 g/dL 12.0-18.0 [facility] ([facility] CHRONIC KIDNEY DISEASE STAGING PER NKF: MALE [...] mL/min Normal 80 and above >32 mL/min NormalNORMAL RANGES Age WBC RBC HGB HCT MCV PLT Adult M 4.1-10.9 4.20-6.30 12.0-18.0 37.0-51.0 80-97 140-440 Adult F 4.1-10.9 4.04-5.48 12.0-18.0 37.0-51.0 80-97 140-440 0- 1 Yr 5.0-20.0 3.9-5.9 15-18 MV: 44 MV: 91 MV: 277 2-9 Yr. 6.0-17.0 3.8-5.4 11-13 MV: 37 MV: 78 MV: 300 10 Yrs. 5.0-13.0 3.8-5.4 12-15 MV: 39 MV: 80 MV: 250 NOTE: * FOR ADULT BLACK MALES AND FEMALES, NORMAL WBC IS 2.9-7.7 K/ML * FOR ADULT BLACK MALES AND FEMALES, NORMAL RBC,HGB, AND HCT IS 5% LESS SOURCE FOR DATA: NATALYA DYN 1800 OPERATION MANUAL( AUTOMATED BLOOD COUNTS AND DIFF.) APPENDIX B-3 HCT 42.4 % 37.0-51.0 [facility] ([facility] CHRONIC KIDNEY DISEASE STAGING PER NKF: MALE [...] mL/min Normal 80 and above >32 mL/min NormalNORMAL RANGES Age WBC RBC HGB HCT MCV PLT Adult M 4.1-10.9 4.20-6.30 12.0-18.0 37.0-51.0 80-97 140-440 Adult F 4.1-10.9 4.04-5.48 12.0-18.0 37.0-51.0 80-97 140-440 0- 1 Yr 5.0-20.0 3.9-5.9 15-18 MV: 44 MV: 91 MV: 277 2-9 Yr. 6.0-17.0 3.8-5.4 11-13 MV: 37 MV: 78 MV: 300 10 Yrs. 5.0-13.0 3.8-5.4 12-15 MV: 39 MV: 80 MV: 250 NOTE: * FOR ADULT BLACK MALES AND FEMALES, NORMAL WBC IS 2.9-7.7 K/ML * FOR ADULT BLACK MALES AND FEMALES, NORMAL RBC,HGB, AND HCT IS 5% LESS SOURCE FOR DATA: Federated Sample 1800 OPERATION MANUAL( AUTOMATED BLOOD COUNTS AND DIFF.) APPENDIX B-3 RBC 4.40 10E6/uL 4.20-6.30 [facility] CHRONIC KIDNEY DISEASE STAGING PER NKF: MALE [...] mL/min Normal 80 and above >32 mL/min NormalNORMAL RANGES Age WBC RBC HGB HCT MCV PLT Adult M 4.1-10.9 4.20-6.30 12.0-18.0 37.0-51.0 80-97 140-440 Adult F 4.1-10.9 4.04-5.48 12.0-18.0 37.0-51.0 80-97 140-440 0- 1 Yr 5.0-20.0 3.9-5.9 15-18 MV: 44 MV: 91 MV: 277 2-9 Yr. 6.0-17.0 3.8-5.4 11-13 MV: 37 MV: 78 MV: 300 10 Yrs. 5.0-13.0 3.8-5.4 12-15 MV: 39 MV: 80 MV: 250 NOTE: * FOR ADULT BLACK MALES AND FEMALES, NORMAL WBC IS 2.9-7.7 K/ML * FOR ADULT BLACK MALES AND FEMALES, NORMAL RBC,HGB, AND HCT IS 5% LESS SOURCE FOR DATA: NATALYA DYN 1800 OPERATION MANUAL( AUTOMATED BLOOD COUNTS AND DIFF.) APPENDIX B-3 MCHC 33.7 g/dL 31.0-36.0 [facility] ([facility] CHRONIC KIDNEY DISEASE STAGING PER NKF: MALE [...] mL/min Normal 80 and above >32 mL/min NormalNORMAL RANGES Age WBC RBC HGB HCT MCV PLT Adult M 4.1-10.9 4.20-6.30 12.0-18.0 37.0-51.0 80-97 140-440 Adult F 4.1-10.9 4.04-5.48 12.0-18.0 37.0-51.0 80-97 140-440 0- 1 Yr 5.0-20.0 3.9-5.9 15-18 MV: 44 MV: 91 MV: 277 2-9 Yr. 6.0-17.0 3.8-5.4 11-13 MV: 37 MV: 78 MV: 300 10 Yrs. 5.0-13.0 3.8-5.4 12-15 MV: 39 MV: 80 MV: 250 NOTE: * FOR ADULT BLACK MALES AND FEMALES, NORMAL WBC IS 2.9-7.7 K/ML * FOR ADULT BLACK MALES AND FEMALES, NORMAL RBC,HGB, AND HCT IS 5% LESS SOURCE FOR DATA: NATALYA DYN 1800 OPERATION MANUAL( AUTOMATED BLOOD COUNTS AND DIFF.) APPENDIX B-3 MCV 96.4 fL 80.0-97.0 [facility] ([facility] CHRONIC KIDNEY DISEASE STAGING PER NKF: MALE [...] mL/min Normal 80 and above >32 mL/min NormalNORMAL RANGES Age WBC RBC HGB HCT MCV PLT Adult M 4.1-10.9 4.20-6.30 12.0-18.0 37.0-51.0 80-97 140-440 Adult F 4.1-10.9 4.04-5.48 12.0-18.0 37.0-51.0 80-97 140-440 0- 1 Yr 5.0-20.0 3.9-5.9 15-18 MV: 44 MV: 91 MV: 277 2-9 Yr. 6.0-17.0 3.8-5.4 11-13 MV: 37 MV: 78 MV: 300 10 Yrs. 5.0-13.0 3.8-5.4 12-15 MV: 39 MV: 80 MV: 250 NOTE: * FOR ADULT BLACK MALES AND FEMALES, NORMAL WBC IS 2.9-7.7 K/ML * FOR ADULT BLACK MALES AND FEMALES, NORMAL RBC,HGB, AND HCT IS 5% LESS SOURCE FOR DATA: NATALYA DYN 1800 OPERATION MANUAL( AUTOMATED BLOOD COUNTS AND DIFF.) APPENDIX B-3 MCH 32.5 pg 26.0-32.0 Above high normal [facility] ([facility] CHRONIC KIDNEY DISEASE STAGING PER NKF: MALE [...] mL/min Normal 80 and above >32 mL/min NormalNORMAL RANGES Age WBC RBC HGB HCT MCV PLT Adult M 4.1-10.9 4.20-6.30 12.0-18.0 37.0-51.0 80-97 140-440 Adult F 4.1-10.9 4.04-5.48 12.0-18.0 37.0-51.0 80-97 140-440 0- 1 Yr 5.0-20.0 3.9-5.9 15-18 MV: 44 MV: 91 MV: 277 2-9 Yr. 6.0-17.0 3.8-5.4 11-13 MV: 37 MV: 78 MV: 300 10 Yrs. 5.0-13.0 3.8-5.4 12-15 MV: 39 MV: 80 MV: 250 NOTE: * FOR ADULT BLACK MALES AND FEMALES, NORMAL WBC IS 2.9-7.7 K/ML * FOR ADULT BLACK MALES AND FEMALES, NORMAL RBC,HGB, AND HCT IS 5% LESS SOURCE FOR DATA: NATALYA DYN 1800 OPERATION MANUAL( AUTOMATED BLOOD COUNTS AND DIFF.) APPENDIX B-3 RDW-CV 11.8 % 11.5-14.5 [facility] ([facility] CHRONIC KIDNEY DISEASE STAGING PER NKF: MALE [...] mL/min Normal 80 and above >32 mL/min NormalNORMAL RANGES Age WBC RBC HGB HCT MCV PLT Adult M 4.1-10.9 4.20-6.30 12.0-18.0 37.0-51.0 80-97 140-440 Adult F 4.1-10.9 4.04-5.48 12.0-18.0 37.0-51.0 80-97 140-440 0- 1 Yr 5.0-20.0 3.9-5.9 15-18 MV: 44 MV: 91 MV: 277 2-9 Yr. 6.0-17.0 3.8-5.4 11-13 MV: 37 MV: 78 MV: 300 10 Yrs. 5.0-13.0 3.8-5.4 12-15 MV: 39 MV: 80 MV: 250 NOTE: * FOR ADULT BLACK MALES AND FEMALES, NORMAL WBC IS 2.9-7.7 K/ML * FOR ADULT BLACK MALES AND FEMALES, NORMAL RBC,HGB, AND HCT IS 5% LESS SOURCE FOR DATA: Federated Sample 1800 OPERATION MANUAL( AUTOMATED BLOOD COUNTS AND DIFF.) APPENDIX B-3 PLT 248 10E3/uL 140-440 [facility] ([facility] CHRONIC KIDNEY DISEASE STAGING PER NKF: MALE [...] mL/min Normal 80 and above >32 mL/min NormalNORMAL RANGES Age WBC RBC HGB HCT MCV PLT Adult M 4.1-10.9 4.20-6.30 12.0-18.0 37.0-51.0 80-97 140-440 Adult F 4.1-10.9 4.04-5.48 12.0-18.0 37.0-51.0 80-97 140-440 0- 1 Yr 5.0-20.0 3.9-5.9 15-18 MV: 44 MV: 91 MV: 277 2-9 Yr. 6.0-17.0 3.8-5.4 11-13 MV: 37 MV: 78 MV: 300 10 Yrs. 5.0-13.0 3.8-5.4 12-15 MV: 39 MV: 80 MV: 250 NOTE: * FOR ADULT BLACK MALES AND FEMALES, NORMAL WBC IS 2.9-7.7 K/ML * FOR ADULT BLACK MALES AND FEMALES, NORMAL RBC,HGB, AND HCT IS 5% LESS SOURCE FOR DATA: Federated Sample 1800 OPERATION MANUAL( AUTOMATED BLOOD COUNTS AND DIFF.) APPENDIX B-3 Neut% 53.1 % 37.0-92.0 [facility] CHRONIC KIDNEY DISEASE STAGING PER NKF: MALE [...] mL/min Normal 80 and above >32 mL/min NormalNORMAL RANGES Age WBC RBC HGB HCT MCV PLT Adult M 4.1-10.9 4.20-6.30 12.0-18.0 37.0-51.0 80-97 140-440 Adult F 4.1-10.9 4.04-5.48 12.0-18.0 37.0-51.0 80-97 140-440 0- 1 Yr 5.0-20.0 3.9-5.9 15-18 MV: 44 MV: 91 MV: 277 2-9 Yr. 6.0-17.0 3.8-5.4 11-13 MV: 37 MV: 78 MV: 300 10 Yrs. 5.0-13.0 3.8-5.4 12-15 MV: 39 MV: 80 MV: 250 NOTE: * FOR ADULT BLACK MALES AND FEMALES, NORMAL WBC IS 2.9-7.7 K/ML * FOR ADULT BLACK MALES AND FEMALES, NORMAL RBC,HGB, AND HCT IS 5% LESS SOURCE FOR DATA: Federated Sample 1800 OPERATION MANUAL( AUTOMATED BLOOD COUNTS AND DIFF.) APPENDIX B-3 Lym% 37.8 % 10.0-58.5 [facility] CHRONIC KIDNEY DISEASE STAGING PER NKF: MALE [...] mL/min Normal 80 and above >32 mL/min NormalNORMAL RANGES Age WBC RBC HGB HCT MCV PLT Adult M 4.1-10.9 4.20-6.30 12.0-18.0 37.0-51.0 80-97 140-440 Adult F 4.1-10.9 4.04-5.48 12.0-18.0 37.0-51.0 80-97 140-440 0- 1 Yr 5.0-20.0 3.9-5.9 15-18 MV: 44 MV: 91 MV: 277 2-9 Yr. 6.0-17.0 3.8-5.4 11-13 MV: 37 MV: 78 MV: 300 10 Yrs. 5.0-13.0 3.8-5.4 12-15 MV: 39 MV: 80 MV: 250 NOTE: * FOR ADULT BLACK MALES AND FEMALES, NORMAL WBC IS 2.9-7.7 K/ML * FOR ADULT BLACK MALES AND FEMALES, NORMAL RBC,HGB, AND HCT IS 5% LESS SOURCE FOR DATA: Federated Sample 1800 OPERATION MANUAL( AUTOMATED BLOOD COUNTS AND DIFF.) APPENDIX B-3 MXD% 9.1 % 0.1-24.0 [facility] ([facility] CHRONIC KIDNEY DISEASE STAGING PER NKF: MALE [...] mL/min Normal 80 and above >32 mL/min NormalNORMAL RANGES Age WBC RBC HGB HCT MCV PLT Adult M 4.1-10.9 4.20-6.30 12.0-18.0 37.0-51.0 80-97 140-440 Adult F 4.1-10.9 4.04-5.48 12.0-18.0 37.0-51.0 80-97 140-440 0- 1 Yr 5.0-20.0 3.9-5.9 15-18 MV: 44 MV: 91 MV: 277 2-9 Yr. 6.0-17.0 3.8-5.4 11-13 MV: 37 MV: 78 MV: 300 10 Yrs. 5.0-13.0 3.8-5.4 12-15 MV: 39 MV: 80 MV: 250 NOTE: * FOR ADULT BLACK MALES AND FEMALES, NORMAL WBC IS 2.9-7.7 K/ML * FOR ADULT BLACK MALES AND FEMALES, NORMAL RBC,HGB, AND HCT IS 5% LESS SOURCE FOR DATA: Federated Sample 1800 OPERATION MANUAL( AUTOMATED BLOOD COUNTS AND DIFF.) APPENDIX B-3 Neut# 2.2 % 2.0-7.8 [facility] CHRONIC KIDNEY DISEASE STAGING PER NKF: MALE [...] mL/min Normal 80 and above >32 mL/min NormalNORMAL RANGES Age WBC RBC HGB HCT MCV PLT Adult M 4.1-10.9 4.20-6.30 12.0-18.0 37.0-51.0 80-97 140-440 Adult F 4.1-10.9 4.04-5.48 12.0-18.0 37.0-51.0 80-97 140-440 0- 1 Yr 5.0-20.0 3.9-5.9 15-18 MV: 44 MV: 91 MV: 277 2-9 Yr. 6.0-17.0 3.8-5.4 11-13 MV: 37 MV: 78 MV: 300 10 Yrs. 5.0-13.0 3.8-5.4 12-15 MV: 39 MV: 80 MV: 250 NOTE: * FOR ADULT BLACK MALES AND FEMALES, NORMAL WBC IS 2.9-7.7 K/ML * FOR ADULT BLACK MALES AND FEMALES, NORMAL RBC,HGB, AND HCT IS 5% LESS SOURCE FOR DATA: Tubular Labs DYN 1800 OPERATION MANUAL( AUTOMATED BLOOD COUNTS AND DIFF.) APPENDIX B-3 Lym# 1.6 10E3/uL 0.6-4.1 [facility] ([facility] CHRONIC KIDNEY DISEASE STAGING PER NKF: MALE [...] mL/min Normal 80 and above >32 mL/min NormalNORMAL RANGES Age WBC RBC HGB HCT MCV PLT Adult M 4.1-10.9 4.20-6.30 12.0-18.0 37.0-51.0 80-97 140-440 Adult F 4.1-10.9 4.04-5.48 12.0-18.0 37.0-51.0 80-97 140-440 0- 1 Yr 5.0-20.0 3.9-5.9 15-18 MV: 44 MV: 91 MV: 277 2-9 Yr. 6.0-17.0 3.8-5.4 11-13 MV: 37 MV: 78 MV: 300 10 Yrs. 5.0-13.0 3.8-5.4 12-15 MV: 39 MV: 80 MV: 250 NOTE: * FOR ADULT BLACK MALES AND FEMALES, NORMAL WBC IS 2.9-7.7 K/ML * FOR ADULT BLACK MALES AND FEMALES, NORMAL RBC,HGB, AND HCT IS 5% LESS SOURCE FOR DATA: NATALYA DYN 1800 OPERATION MANUAL( AUTOMATED BLOOD COUNTS AND DIFF.) APPENDIX B-3 MPV 8.5 fL 9.0-13.0 Below low normal [facility] ( [facility] CHRONIC KIDNEY DISEASE STAGING PER NKF: MALE [...] mL/min Normal 80 and above >32 mL/min NormalNORMAL RANGES Age WBC RBC HGB HCT MCV PLT Adult M 4.1-10.9 4.20-6.30 12.0-18.0 37.0-51.0 80-97 140-440 Adult F 4.1-10.9 4.04-5.48 12.0-18.0 37.0-51.0 80-97 140-440 0- 1 Yr 5.0-20.0 3.9-5.9 15-18 MV: 44 MV: 91 MV: 277 2-9 Yr. 6.0-17.0 3.8-5.4 11-13 MV: 37 MV: 78 MV: 300 10 Yrs. 5.0-13.0 3.8-5.4 12-15 MV: 39 MV: 80 MV: 250 NOTE: * FOR ADULT BLACK MALES AND FEMALES, NORMAL WBC IS 2.9-7.7 K/ML * FOR ADULT BLACK MALES AND FEMALES, NORMAL RBC,HGB, AND HCT IS 5% LESS SOURCE FOR DATA: NATALYA DYN 1800 OPERATION MANUAL( AUTOMATED BLOOD COUNTS AND DIFF.) APPENDIX B-3 MXD# 0.4 10E3/uL 0.0-1.8 [facility] ([facility] CHRONIC KIDNEY DISEASE STAGING PER NKF: MALE [...] mL/min Normal 80 and above >32 mL/min NormalNORMAL RANGES Age WBC RBC HGB HCT MCV PLT Adult M 4.1-10.9 4.20-6.30 12.0-18.0 37.0-51.0 80-97 140-440 Adult F 4.1-10.9 4.04-5.48 12.0-18.0 37.0-51.0 80-97 140-440 0- 1 Yr 5.0-20.0 3.9-5.9 15-18 MV: 44 MV: 91 MV: 277 2-9 Yr. 6.0-17.0 3.8-5.4 11-13 MV: 37 MV: 78 MV: 300 10 Yrs. 5.0-13.0 3.8-5.4 12-15 MV: 39 MV: 80 MV: 250 NOTE: * FOR ADULT BLACK MALES AND FEMALES, NORMAL WBC IS 2.9-7.7 K/ML * FOR ADULT BLACK MALES AND FEMALES, NORMAL RBC,HGB, AND HCT IS 5% LESS SOURCE FOR DATA: Federated Sample 1800 OPERATION MANUAL( AUTOMATED BLOOD COUNTS AND DIFF.) APPENDIX B-3 ID Date Data Source [id number] 08/31/2019 05:04:00 PM EST [facility] ([facility] Name Value Range Interpretation Code Description Data Noreen rce(s) Supporting Document(s) Erythrocyte sedimentation rate by Westergren method 24 mm/hr 0-30 Normal (applies to non-numeric results) [facility] ([facility] ID Date Data Source [id number] 08/31/2019 05:04:00 PM EST [facility] ([facility] Name Value Range Interpretation Code Description Data Noreen rce(s) Supporting Document(s) White Blood Count 5.0 10 4.0-10.0 Normal (applies to non-numeri c results) [facility] ([facility] Hemoglobin 13.0 g/dL 12.0-15.5 Normal (applies to non-numeric resul ts) [facility] ([facility] Red Blood Count 4.15 10 4.00-5.40 Normal (applies to non-numeric results) [facility] ([facility] Hematocrit 41.4 % 36.0-47.0 Normal (applies to non-numeric resul ts) [facility] ([facility] Mean Corpuscular Volume 99.8 fl 80.0-96.0 Above high normal [facility] ([facility] Mean Corpuscular Hemoglobin 31.3 pg 27.0-33.0 Norm al (applies to non-numeric results) [facility] ([facility] ) Platelet Count, Automated 266 10 150-450 Normal (applies to non-numeric results) [facility] ([facility] Mean Corpuscular HGB Conc 31.4 g/dL 32.0-36.5 Below low normal [facility] ([facility] Red Cell Distribution Width 11.6 % 11.5-14.5 Norm al (applies to non-numeric results) [facility] ([facility] Nucleated Red Blood Cell % 0.0 % 0-0 Normal (applies to n on-numeric results) [facility] ([facility] ID Date Data Source [id number] 08/31/2019 05:04:00 PM EST [facility] ([facility] Name Value Range Interpretation Code Description Data Noreen rce(s) Supporting Document(s) Blood Urea Nitrogen 9 mg/dL 7-18 Normal (applies to non-nume mindy results) [facility] ([facility] Glucose, Fasting 99 mg/dL 70-100 Normal (applies to non-numeric results) [facility] ([facility] Creatinine For GFR 0.62 mg/dL 0.55-1.30 Normal (applies to non -numeric results) [facility] ([facility] Glomerular Filtration Rate > 60.0 Normal (applies to n on-numeric results) [facility] ([facility] <content>Units are mL/min/1.73 m2</content>
<content></content>
<content>Chronic Kidney Disease Staging per NKF:</content>
<content></content>
<content>Stage I & II GFR >=60 Normal to Mildly Decreased</content>
<content>Stage III GFR 30- 59 Moderately Decreased</content>
<content>Stage IV GFR 15-29 Severely Decreased</content>
<content>Stage V GFR <15 Very Little GFR Left</content>
<content>ESRD GFR <15 on UNDERGROUND ELECTRICIAN</content>
<content></content> Sodium Level 144 meq/L 136-145 Normal (applies to non-numeric res ults) [facility] ([facility] Chloride Level 108 meq/L 98-107 Above high normal [facility] Carbon Dioxide Level 29 meq/L 21-32 Normal (applies to non-num shakila results) [facility] ([facility] Potassium Serum 3.8 meq/L 3.5-5.1 Normal (applies to non-numeric results) [facility] ([facility] Ast/Sgot 23 U/L 7-37 Normal (applies to non-numeric resul ts) [facility] ([facility] Calcium Level 8.4 mg/dL 8.8-10.2 Below low normal [facility] T ([facility] Anion Gap 7 meq/L 8-16 Below low normal [facility] ( [facility] Alt/SGPT 22 U/L 12-78 Normal (applies to non-numeric resul ts) [facility] ([facility] Alkaline Phosphatase 99 U/L 45-117 Normal (applies to non-num shakila results) [facility] Bilirubin,Total 0.3 mg/dL 0.2-1.0 Normal (applies to non-numeric results) [facility] ([facility] Total Protein 6.5 GM/DL 6.4-8.2 Normal (applies to non-numeric re sults) [facility] ([facility] Albumin 3.2 GM/DL 3.2-5.2 Normal (applies to non-numeric resul ts) [facility] ([facility] Albumin/Globulin Ratio 0.97 1.00-1.93 Below low normal [facility] ID Date Data Source [id number] 08/31/2019 05:04:00 PM EST [facility] ([facility] Name Value Range Interpretation Code Description Data Noreen rce(s) Supporting Document(s) Prothrombin Time 13.1 s 11.8-14.0 Normal (applies to non-numeric results) [facility] ([facility] Inr 1.02 Normal (applies to non-numeric resul ts) [facility] ([facility] THERAPUTIC HUMAN INR VALUES INDICATIONS NORMAL RANGES PROPHYLAXIS/TREATMENT OF: VENOUS THROMBOSIS 2.0-3.0 PULMONARY EMBOLISM 2.0-3.0 PREVENTION OF SYSTEMIC EMBOLISM FROM: TISSUE HEART VALVES 2.0-3.0 ACUTE MYOCARDIAL INFARCTION 2.0-3.0 VALVULAR HEART DISEASE 2.0-3.0 ATRIAL FIBRILLATION 2.0-3.0 MECHANICAL VALVES(HIGH RISK) 2.5-3.5 RECURRENT MYOCARDIAL INFARCTION 2.5-3.5 Procedure Social History Code Duration Value Status Description Data Source(s ) Smoking 09/22/2020 12:00:00 AM EST Never Smoker completed Never S moker eCW1 ([facility]) Smoking 08/31/2020 12:00:00 AM EST Never Smoker completed Never S moker eCW1 ([facility]) Smoking 07/04/2020 12:00:00 AM EST Never Smoker completed Never S moker eCW1 ([facility]) Smoking 07/04/2020 12:00:00 AM EST Never Smoker completed Never S moker eCW1 ([facility]) Smoking 07/04/2020 12:00:00 AM EST Never Smoker completed Never S moker eCW1 ([facility]) Smoking 07/04/2020 12:00:00 AM EST Never Smoker completed Never S moker eCW1 ([facility]) Smoking 07/04/2020 12:00:00 AM EST Never Smoker completed Never S moker eCW1 ([facility]) Smoking 07/04/2020 12:00:00 AM EST Never Smoker completed Never S moker eCW1 ([facility]) Smoking 07/04/2020 12:00:00 AM EST Never Smoker completed Never S moker eCW1 ([facility]) Smoking 07/04/2020 12:00:00 AM EST Never Smoker completed Never S moker eCW1 ([facility]) Smoking 07/04/2020 12:00:00 AM EST Never Smoker completed Never S moker eCW1 ([facility]) Smoking 07/04/2020 12:00:00 AM EST Never Smoker completed Never S moker eCW1 ([facility]) Smoking 07/04/2020 12:00:00 AM EST Never Smoker completed Never S moker eCW1 ([facility]) Smoking 07/04/2020 12:00:00 AM EST Never Smoker completed Never S moker eCW1 ([facility]) Smoking 07/01/2020 12:00:00 AM EDT Never Smoker completed Never S moker eCW1 ([facility]) Smoking 06/15/2020 12:00:00 AM EDT Never Smoker completed Never S moker eCW1 ([facility]) Smoking 06/06/2020 12:00:00 AM EDT Never Smoker completed Never S moker eCW1 ([facility]) Smoking 06/06/2020 12:00:00 AM EDT Never Smoker completed Never S moker eCW1 ([facility]) Smoking 06/06/2020 12:00:00 AM EDT Never Smoker completed Never S moker eCW1 ([facility]) Smoking 06/06/2020 12:00:00 AM EDT Never Smoker completed Never S moker eCW1 ([facility]) Smoking 03/07/2020 12:00:00 AM EDT Never Smoker completed Never S moker eCW1 ([facility]) Smoking 01/27/2020 12:00:00 AM EDT Never Smoker completed Never S moker eCW1 ([facility]) Smoking 01/27/2020 12:00:00 AM EDT Never Smoker completed Never S moker eCW1 ([facility]) Smoking 01/27/2020 12:00:00 AM EDT Never Smoker completed Never S moker eCW1 ([facility]) Smoking 01/27/2020 12:00:00 AM EDT Never Smoker completed Never S moker eCW1 ([facility]) Vital Signs ID Date Data Source UNK Name Value Range Interpretation Code Description Data Source(s) Respiratory rate 14 /min 14 /min MEDENT ( [facility] ) Body mass index (BMI) [Ratio] 33.5 kg/m2 33.5 k g/m2 MEDENT ([facility]) Body weight 189.00 [lb_av] 189.00 [lb_av] MEDEN T ([facility] ) Body height 63 [in_i] 63 [in_i] MEDENT ([facility]) 5'3" Body temperature 96.8 [degF] 96.8 [degF] MEDENT ([facility]) Heart rate 66 /min 66 /min MEDENT ([facility]) Diastolic blood pressure 81 mm[Hg] 81 mm[Hg] MEDENT ([facility]) Systolic blood pressure 135 mm[Hg] 135 mm[Hg] M EDENT ([facility] ) Oxygen saturation in Arterial blood by Pulse oximetry 95 % 95 % MEDENT ([facility] Body mass index (BMI) [Ratio] 33.7 kg/m2 33.7 k g/m2 MEDENT ([facility] [place] body weight 115 [lb_av] 115 [lb_av] MEDEN T ([facility] Body weight 190.00 [lb_av] 190.00 [lb_av] MEDEN T ([facility] Body height 63 [in_i] 63 [in_i] MEDENT ([facility] 5'3" Respiratory rate 18 /min 18 /min MEDENT ( [facility] Heart rate 88 /min 88 /min MEDENT ([facility] Body temperature 97.1 [degF] 97.1 [degF] MEDENT ([facility] Diastolic blood pressure 78 mm[Hg] 78 mm[Hg] MEDENT ([facility] Systolic blood pressure 116 mm[Hg] 116 mm[Hg] M EDENT ([facility] Diastolic blood pressure 78 mm[Hg] 78 mm[Hg] eCW1 ([facility]) Systolic blood pressure 122 mm[Hg] 122 mm[Hg] e CW1 ([facility]) Body mass index (BMI) [Ratio] 32.51 kg/m2 32.51 kg/m2 W1 ([facility]) Body height 64.5 [in_i] 64.5 [in_i] W1 ([facility]) Body weight 87.27 kg 87.27 kg W1 ([facility]) Body weight 192.4 [lb_av] 192.4 [lb_av] W1 ([facility]) Body temperature 96.8 [degF] 96.8 [degF] MEDENT ([facility]) Body temperature 96.9 [degF] 96.9 [degF] MEDENT ([facility], ) Diastolic blood pressure 72 mm[Hg] 72 mm[Hg] eCW1 ([facility]) Systolic blood pressure 122 mm[Hg] 122 mm[Hg] e CW1 ([facility]) Body mass index (BMI) [Ratio] 32.92 kg/m2 32.92 kg/m2 eCW1 ([facility]) Body height 64.5 [in_i] 64.5 [in_i] eCW1 ([facility]) Body weight 88.36 kg 88.36 kg eCW1 ([facility]) Body weight 194.8 [lb_av] 194.8 [lb_av] eCW1 ([facility]) Body surface area Derived from formula 1.94 m2 1.94 m2 [facility] ([facility], ) Body weight 87.998 kg 87.998 kg [facility] ([facility], ) [place] body weight 120 [lb_av] 120 [lb_av] MEDEN T ([facility], ) Body mass index (BMI) [Ratio] 33.0 kg/m2 33.0 k g/m2 [facility] ([facility], ) Body weight 194.00 [lb_av] 194.00 [lb_av] MEDEN T ([facility], ) Body height 64.25 [in_i] 64.25 [in_i] [facility] ([facility], ) 5'4.25" Body temperature 98.1 [degF] 98.1 [degF] [facility] ([facility], ) Respiratory rate 16 /min 16 /min [facility] ( [facility], ) Heart rate 80 /min 80 /min [facility] ([facility], ) Diastolic blood pressure 72 mm[Hg] 72 mm[Hg] [facility] ([facility], ) Systolic blood pressure 138 mm[Hg] 138 mm[Hg] M EDENT ([facility], ) Oxygen saturation in Arterial blood by Pulse oximetry 94 % 94 % MEDENT ([facility] Body mass index (BMI) [Ratio] 33.7 kg/m2 33.7 k g/m2 MEDENT ([facility] [place] body weight 115 [lb_av] 115 [lb_av] MEDEN T ([facility] Body weight 190.00 [lb_av] 190.00 [lb_av] MEDEN T ([facility] Body height 63 [in_i] 63 [in_i] MEDENT ([facility] 5'3" Respiratory rate 14 /min 14 /min MEDENT ( [facility] Heart rate 68 /min 68 /min MEDENT ([facility] Body temperature 98.1 [degF] 98.1 [degF] MEDENT ([facility] Diastolic blood pressure 84 mm[Hg] 84 mm[Hg] MEDENT ([facility] Systolic blood pressure 128 mm[Hg] 128 mm[Hg] M EDENT ([facility] Diastolic blood pressure 90 mm[Hg] 90 mm[Hg] W1 ([facility]) Systolic blood pressure 118 mm[Hg] 118 mm[Hg] e CW1 ([facility]) Body mass index (BMI) [Ratio] 31.94 kg/m2 31.94 kg/m2 [facility] ([facility]) Body height 64.5 [in_i] 64.5 [in_i] eCW1 ([facility]) Body weight 85.73 kg 85.73 kg W1 ([facility]) Body weight 189 [lb_av] 189 [lb_av] W1 ([facility]) Diastolic blood pressure 68 mm[Hg] 68 mm[Hg] W1 ([facility]) Systolic blood pressure 122 mm[Hg] 122 mm[Hg] e CW1 ([facility]) Body temperature 97.6 [degF] 97.6 [degF] [facility] ( [facility]) Respiratory rate 18 /min 18 /min eCW1 ([facility]) Heart rate 77 /min 77 /min eCW1 ([facility]) Body mass index (BMI) [Ratio] 32.12 kg/m2 32.12 kg/m2 eCW1 ([facility]) Body height 64.5 [in_i] 64.5 [in_i] eCW1 ([facility]) Body weight 86.23 kg 86.23 kg eCW1 ([facility]) Body weight 190.1 [lb_av] 190.1 [lb_av] eCW1 ([facility]) Diastolic blood pressure 70 mm[Hg] 70 mm[Hg] eCW1 ([facility]) Systolic blood pressure 124 mm[Hg] 124 mm[Hg] e CW1 ([facility]) Body mass index (BMI) [Ratio] 32.21 kg/m2 32.21 kg/m2 eCW1 ([facility]) Body height 64.5 [in_i] 64.5 [in_i] eCW1 ([facility]) Body weight 86.45 kg 86.45 kg eCW1 ([facility]) Body weight 190.6 [lb_av] 190.6 [lb_av] eCW1 ([facility]) Diastolic blood pressure 82 mm[Hg] 82 mm[Hg] eCW1 ([facility]) Systolic blood pressure 126 mm[Hg] 126 mm[Hg] e CW1 ([facility]) Body mass index (BMI) [Ratio] 32.11 kg/m2 32.11 kg/m2 eCW1 ([facility]) Body height 64.5 [in_i] 64.5 [in_i] eCW1 ([facility]) Body weight 190 [lb_av] 190 [lb_av] eCW1 ([facility]) Body weight 193 [lb_av] 193 [lb_av] eCW1 ([facility]) Diastolic blood pressure 80 mm[Hg] 80 mm[Hg] eCW1 ([facility]) Systolic blood pressure 132 mm[Hg] 132 mm[Hg] e CW1 ([facility]) Body temperature 97.7 [degF] 97.7 [degF] eCW1 ( [facility]) Respiratory rate 18 /min 18 /min eCW1 ([facility]) Heart rate 74 /min 74 /min eCW1 ([facility]) Body mass index (BMI) [Ratio] 32.61 kg/m2 32.61 kg/m2 eCW1 ([facility]) Body height 64.5 [in_i] 64.5 [in_i] eCW1 ([facility]) Diastolic blood pressure 62 mm[Hg] 62 mm[Hg] eCW1 ([facility]) Systolic blood pressure 130 mm[Hg] 130 mm[Hg] e CW1 ([facility]) Body temperature 97.4 [degF] 97.4 [degF] eCW1 ( [facility]) Respiratory rate 18 /min 18 /min eCW1 ([facility]) Heart rate 65 /min 65 /min eCW1 ([facility]) Body mass index (BMI) [Ratio] 31.94 kg/m2 31.94 kg/m2 W1 ([facility]) Body height 64.5 [in_i] 64.5 [in_i] eCW1 ([facility]) Body weight 189 [lb_av] 189 [lb_av] eCW1 ([facility]) Heart rate 64 /min 64 /min MEDENT ([facility] Body temperature 98.6 [degF] 98.6 [degF] MEDENT ([facility] Diastolic blood pressure 84 mm[Hg] 84 mm[Hg] MEDENT ([facility] Systolic blood pressure 124 mm[Hg] 124 mm[Hg] M EDENT ([facility] Oxygen saturation in Arterial blood by Pulse oximetry 98 % 98 % MEDENT ([facility] Body mass index (BMI) [Ratio] 33.7 kg/m2 33.7 k g/m2 MEDENT ([facility] [place] body weight 115 [lb_av] 115 [lb_av] MEDEN T ([facility] Body weight 190.00 [lb_av] 190.00 [lb_av] MEDEN T ([facility] Body height 63 [in_i] 63 [in_i] MEDENT ([facility] 5'3" Respiratory rate 14 /min 14 /min MEDENT ( [facility] Diastolic blood pressure 72 mm[Hg] 72 mm[Hg] eCW1 ([facility]) Systolic blood pressure 120 mm[Hg] 120 mm[Hg] e CW1 ([facility]) Body temperature 97.7 [degF] 97.7 [degF] eCW1 ( [facility]) Respiratory rate 18 /min 18 /min eCW1 ([facility]) Heart rate 61 /min 61 /min eCW1 ([facility]) Body mass index (BMI) [Ratio] 32.44 kg/m2 32.44 kg/m2 eCW1 ([facility]) Body height 64.5 [in_i] 64.5 [in_i] eCW1 ([facility]) Body weight 192 [lb_av] 192 [lb_av] eCW1 ([facility]) Diastolic blood pressure 72 mm[Hg] 72 mm[Hg] eCW1 ([facility]) Systolic blood pressure 120 mm[Hg] 120 mm[Hg] e CW1 ([facility]) Body temperature 98.7 [degF] 98.7 [degF] eCW1 ( [facility]) Respiratory rate 16 /min 16 /min eCW1 ([facility]) Heart rate 86 /min 86 /min eCW1 ([facility]) Body mass index (BMI) [Ratio] 33.29 kg/m2 33.29 kg/m2 eCW1 ([facility]) Body height 64.5 [in_i] 64.5 [in_i] eCW1 ([facility]) Body weight 89.36 kg 89.36 kg eCW1 ([facility]) Body weight 197 [lb_av] 197 [lb_av] eCW1 ([facility]) Body mass index (BMI) [Ratio] 34.9 kg/m2 34.9 k g/m2 MEDENT ([facility]) Body weight 200.00 [lb_av] 200.00 [lb_av] MEDEN T ([facility]) Body height 63.5 [in_i] 63.5 [in_i] MEDENT ([facility]) 5'3.50" Body temperature 98.0 [degF] 98.0 [degF] MEDENT ([facility] ) Oxygen saturation in Arterial blood by Pulse oximetry 97 % 97 % MEDENT ([facility] Body mass index (BMI) [Ratio] 36.0 kg/m2 36.0 k g/m2 MEDENT ([facility] [place] body weight 115 [lb_av] 115 [lb_av] MEDEN T ([facility] Body weight 203.00 [lb_av] 203.00 [lb_av] MEDEN T ([facility] Body height 63 [in_i] 63 [in_i] MEDENT ([facility] 5'3" Respiratory rate 16 /min 16 /min MEDENT ( [facility] Heart rate 64 /min 64 /min MEDENT ([facility] Body temperature 98.6 [degF] 98.6 [degF] MEDENT ([facility] Diastolic blood pressure 80 mm[Hg] 80 mm[Hg] MEDENT ([facility] Systolic blood pressure 122 mm[Hg] 122 mm[Hg] M EDENT ([facility] Oxygen saturation in Arterial blood by Pulse oximetry 97 % 97 % MEDENT ([facility] Body mass index (BMI) [Ratio] 36.0 kg/m2 36.0 k g/m2 MEDENT ([facility] Body weight 203.00 [lb_av] 203.00 [lb_av] MEDEN T ([facility] Body height 63 [in_i] 63 [in_i] MEDENT ([facility] 5'3" Respiratory rate 13 /min 13 /min MEDENT ( [facility] Heart rate 82 /min 82 /min MEDENT ([facility] Body temperature 98.0 [degF] 98.0 [degF] MEDENT ([facility] Diastolic blood pressure 78 mm[Hg] 78 mm[Hg] MEDENT ([facility] Systolic blood pressure 124 mm[Hg] 124 mm[Hg] M SOTO ([facility] Patient Treatment Plan of Care Planned Activity Planned Date Details Description Data Source (s) 24 HR Oxybutynin chloride 5 MG Extended Release Oral T ablet 09/06/2020 12:00:00 AM EST eCW1 ([facility])
[2020-10-14] MEDS ORDERED: NOXI1TAB PO (11:35)
--- NOTE | 2020-10-14 11:58 | IPN ---
PROGRESS NOTE DATE: 10/14/2020 SUBJECTIVE: Patient seen and examined. She wished to go ahead with a left total knee arthroplasty. She did well with a right knee arthroplasty last year. She understands the nature of this, the risks of bleeding, infection, damage to nerves, vessels, persistent pain, wear, loosening, blood clots, medical problems, , among others.
[2020-10-14] MEDS ORDERED: ROCURONIUM BROMIDE 50 MG/5 ML VIAL As Ordered ONE (12:36)
[2020-10-14] MEDS ORDERED: fentaNYL 100 MCG/2 ML INJECTION (J3010) As Ordered ONE ×3 (12:36→14:04)
[2020-10-14] MEDS ORDERED: LIDOCAINE 2% 100MG/5ML SDV (FOR ANES.) As Ordered ONE (12:36)
[2020-10-14] MEDS ORDERED: propofoL 200 MG/20 ML VIAL As Ordered ONE (12:36)
[2020-10-14] MEDS ORDERED: ONDANSETRON 4MG/2ML VIAL As Ordered ONE ×2 (12:36→15:51)
[2020-10-14] MEDS ORDERED: MIDAZOLAM INJ 2MG/2ML VIAL (J2250 PER 1MG) As Ordered ONE ×2 (12:36→12:37)
[2020-10-14] MEDS ORDERED: dexameTHASONE 4 MG/ML 1ML VIAL (J1100 PER 1MG) As Ordered ONE (12:36)
[2020-10-14] MEDS ORDERED: KETAMINE HCL 200 MG/20 ML VIAL As Ordered ONE (12:37)
[2020-10-14] MEDS ORDERED: ROPIvacaine 0.5% 30ML INJECTION (J2795 PER 1MG) As Ordered ONE (12:45)
[2020-10-14] MEDS ORDERED: dexameTHASONE 10MG/1ML VIAL PRES.FREE (J1100 PER 1MG) As Ordered ONE (12:45)
[2020-10-14] MEDS ORDERED: BUPIVACAINE HCL 0.25% 10ML VIAL As Ordered ONE (13:04)
[2020-10-14] MEDS ORDERED: ceFAZolin 1GM VIAL (J0690 PER 500MG) As Ordered ONE (13:04)
[2020-10-14] MEDS ORDERED: TRANEXAMIC ACID 100 MG/ML 10ML VIAL As Ordered ONE (13:04)
[2020-10-14] MEDS ORDERED: EPINEPHrine INJ 1 MG/ML 1ML AMP As Ordered ONE (13:04)
[2020-10-14] MEDS ORDERED: BUPIVACAINE LIPOSOME/PF 1.3% 20ML VIAL (13.3MG/ML)(EXPAREL)(C9290 PER1MG) As Ordered ONE (13:04)
[2020-10-14] MEDS ORDERED: LIDOCAINE 1% MDV 20ML VIAL XX ONE (13:15)
[2020-10-14] MEDS ORDERED: ROPIvacaine 0.5% 30ML INJECTION (J2795 PER 1MG) XX ONE (13:15)
[2020-10-14] MEDS ORDERED: dexameTHASONE 10MG/1ML VIAL PRES.FREE (J1100 PER 1MG) XX ONE (13:15)
[2020-10-14] MEDS ORDERED: SUGAMMADEX SODIUM 500 MG/5 ML VIAL (BRIDION) As Ordered ONE (14:59)
[2020-10-14] MEDS ORDERED: HYDROMORPHONE HCL 0.5 MG/ 0.5 ML SYRINGE (J1170 PER 1) As Ordered ONE ×2 (15:27→15:42)
[2020-10-14] MEDS: HYDROMORPHONE HCL 0.5 MG/ 0.5 ML SYRINGE (J1170 PER 1) IV PRN ×4 (15:29→15:45)
--- NOTE | 2020-10-14 15:39 | REP ---
INDICATION: POST OP IN PACU COMPARISON: None. TECHNIQUE: AP and lateral left knee. FINDINGS: Total knee prosthesis in place and in good position. Osseous structures are intact and well aligned. Metallic skin penny are seen anteriorly. IMPRESSION: Left total knee arthroplasty in good position. <Electronically signed by Jim Chadwick > 10/14/20 [id number]
[2020-10-14] MEDS ORDERED: oxyCODONE 5MG TAB As Ordered ONE (15:52)
[2020-10-14] MEDS: oxyCODONE 5MG TAB PO PRN ×2 (15:55→16:27)
[2020-10-14] MEDS ORDERED: fentaNYL 100 MCG/2 ML INJECTION (J3010) IV PRN (16:00)
[2020-10-14] MEDS ORDERED: ACETAMINOPHEN TAB 650MG DOSE (2X325MG) PO PRN (16:00)
[2020-10-14] MEDS ORDERED: LR 1,000 ML IV SCH ×2 (16:00)
[2020-10-14] MEDS ORDERED: ONDANSETRON 4MG/2ML VIAL IV PRN ×2 (16:00)
[2020-10-14] MEDS ORDERED: PERCOCET 5MG/325MG TAB PO PRN (16:00)
[2020-10-14] MEDS ORDERED: METOCLOPRAMIDE INJ 10MG/2ML VIAL (J2765 PER 1) As Ordered ONE (16:17)
[2020-10-14] MEDS ORDERED: METOCLOPRAMIDE INJ 10MG/2ML VIAL (J2765 PER 1) IV PRN (16:30)
--- NOTE | 2020-10-14 16:52 | HPEPDOC ---
[facility] Medical History & Physical Date of Admission Oct 14, 2020 Date of Service: Oct 14, 2020 Attending Physician: Jaycee Rosas MD History and Physical MEDICINE HISTORY AND PHYSICAL HISTORY OF PRESENT ILLNESS: Patient is a 65-year-old female with PMH of breast cancer s/p lumpectomy, lymphectomy and radiation, hx of DVT on xarelto daily, GERD, arthritis of left knee who had elective left total knee arthroplasty on 10/14/20. According to patient and notes she has had progressively worsening left knee pain and stiffness which failed to improve with conservative treatment. She also complained with pain with weightbearing activities and activities of daily thea ing. X-rays done as outpatient showed advanced osteoarthritis of the left knee joint. She consented to elective arthroplasty done today Pre-, Intra- and Post-operatively there were no complications. Aside from some left knee pain and nausea, she had no complaints. She remained hemodynamically stable. Medicine was consulted to follow while admitted, to help medically manage patient. REVIEW OF SYSTEMS: Neg except mentioned above PAST MEDICAL HISTORY: History of breast cancer s/p lumpectomy, lymphectomy and radiation GERD Seasonal allergies hx of DVT on xarelto daily Arthritis PAST SURGICAL HISTORY: Left total knee arthroplasty 10/14/20 Right ankle ORIF. Appendectomy. Low back surgery. Colonoscopy. Gastric bypass. Hysterectomy. Cholecystectomy. Right total knee replacement Bilateral knee scopes. Right breast lumpectomy, lymphectomy Bunionectomy on the right. SOCIAL HISTORY: She is retired, does not smoke. Does not drink alcohol or do illicit drugs. Full Code FAMILY HISTORY: Father: COPD Motherf: COPD, HTN Brother #1 CVA Sister #1 Breast cancer ALLERGIES: Please see below. HOME MEDICATIONS: Please see below. PHYSICAL EXAMINATION: VS: Please see below CONSTITUTIONAL: No acute distress, resting comfortably, lethargic but awake and Ox3 EYES: PERRLA, EOM intact HENT, MOUTH: Normocephalic, atraumatic, moist mucous membranes, NECK: SUPPLE, no JVD, no lymphadenopathy, no carotid bruit CV: Regular rate and rhythm, S1S2 normal, no murmurs/rubs/gallops RESPIRATORY: Clear to auscultation bilaterally, no rales/rhonchi/wheezes GI: BS positive in 4 quadrants, soft, nontender, nondistended, no rebound or guarding, no organomegaly : Deferred MUSCULOSKELETAL: Left knee incision appears clean, nonsuppurative, covered in clean bandages. ROM of left knee not tested. No cyanosis, clubbing, swelling, joint deformity, extremity edema INTEGUMENTARY: Intact, no rashes, no lesions, no erythema NEUROLOGIC: Cranial Nerves II-XII are intact, no focal deficits PSYCHIATRIC: Mood and affect are normal LABORATORY DATA: Please see below IMAGING: XR left knee Post-op: Left total knee arthroplasty in good position. ASSESSMENT: 65 y/o F with PMH above admitted s/p left total knee arthroplasty. PLAN: Osteoarthritis left knee s/p left total knee arthroplasty, POD O -Pain control, wound care, PT/OT -IS Q2Hrs while awake -Orthopedic surgery primary History of breast cancer s/p lumpectomy, lymphectomy and radiation -Follows with Dr. Samaniego as o/p Hx of DVT s/p surgery in past -C/w xarelto GERD -C/w PPI DVT px -Xarelto DISPOSITION: Admitted with orthopedic surgery primary. Thank you kindly for this consult. We will continue to follow during her admission. Vital Signs Vital Signs Date Time Temp Pulse Resp B/P (MAP) Pulse Ox O2 Delivery O2 Flow Rate FiO2 10/14/20 16:30 78 16 118/65 (82) 9 Nasal Cannula 3 10/14/20 16:19 97.6 Home Medications Scheduled Anastrozole (Anastrozole) 1 Mg Tablet, 1 TAB PO DAILY Ascorbic Acid (Vitamin C) 500 Mg Tablet, 500 MG PO DAILY Biotin (Biotin) 10 Mg Tablet, 10 MG PO BID Calcium Carbonate (Calcium) 600 Mg Tablet, 600 MG PO DAILY Cholecalciferol (Vitamin D3) (Vitamin D3) 50 Mcg Capsule, 50 MCG PO DAILY Collagenase Clostridium Hist. (Collagenase) 1 Each Powder.ea., 1 POW XX DAILY Cyanocobalamin (Vitamin B-12) (Vitamin B-12) 1,000 Mcg Capsule, 1 CAP PO DAILY Multivitamin with Minerals (Multiple Vitamin) 1 Each Tablet, 1 TAB PO DAILY Omeprazole (Omeprazole) 20 Mg Capsule., 20 MG PO DAILY Oxybutynin Chloride (Oxybutynin Chloride ER) 5 Mg Tab.er.24, 1 TAB PO DAILY Pancreatic Enzymes (Iam Miller 24,000 Units Capsule) 1 Each Capsule.dr, 1 EA PO TID Turmeric/Turmeric Ext/Pepr Ext (Turmeric Complex 500 mg Cap) 1 Each Capsule, 1 CAP PO DAILY Vit A/Vit C/Vit E/Zinc/Copper (Preservision Areds Softgel) 1 Each Capsule, 1 CAP PO DAILY Vitamin D3/Folic Acid (Noxifol-D3 2,500 Unit-1 mg Tab) 2,500 Unit Tablet, 1 TAB PO DAILY Allergies Coded Allergies: FRUIT (Verified Allergy, Severe, ITCHING, THROAT SWELLING, DIFFICULTY BREATHING, 10/14/20) fresh fruits and vegetables tree nut (Verified Allergy, Severe, itching throat swells breathing, 10/14/20) morphine (Verified Allergy, Mild, ITCHING NAUSEA, 10/14/20) Protein Concentrate Whey (Verified Adverse Reaction, Intermediate, PROTEIN DRINK- SWELLING AND SHAKING, 10/14/20) tetanus toxoid, adsorbed (Verified Adverse Reaction, Intermediate, swelling reddness arm, 10/14/20) tramadol (Verified Adverse Reaction, Intermediate, FELT LIKE HEART ATTACK heaviness in chest, 10/14/20) A-FIB/CHADSVASC A-FIB History Current/History of A-Fib/PAF?: No Current PO Anticoag Therapy: Yes Age/Risk Factor Scoring CHADSVASC: CHADSVASC Response (Comments) Value Age Risk Factor Age 65-74 years old 1 Gender Risk Factor Female 1 Hx of CHF No 0 Hx of HTN No 0 Hx of Stroke/TIA/or VTE No 0 Hx of Diabetes No 0 Hx of Vascular Disease No 0 Total 2 Treatment Treatment ordered: Other Other anticoagulant ordered: Jaycee Madrid MD Oct 14, 2020 16:52
[2020-10-14] MEDS ORDERED: HYDROMORPHONE HCL 0.5 MG/ 0.5 ML SYRINGE (J1170 PER 1) IV PRN ×2 (17:45)
[2020-10-14] MEDS: CREON-24 CAPSULE PO SCH (18:00)
[2020-10-14] MEDS: ceFAZolin SOD 2 GM in IV 1 EA IV SCH (21:13)
[2020-10-15 02:00] VITALS: BP 119/69
[2020-10-15] MEDS: ceFAZolin SOD 2 GM in IV 1 EA IV SCH (05:33)
[2020-10-15] MEDS: PERCOCET 5MG/325MG TAB PO PRN ×3 (05:33→15:05)
[2020-10-15 06:00] VITALS: BP 113/62
[2020-10-15] MEDS ORDERED: XARE10TA PO ×2 (06:38→09:14)
[2020-10-15] MEDS ORDERED: PERC5TAB12 PO (06:38)
[2020-10-15 07:17] LABS: HEMATOCRIT 35.6 % (36.0-47.0); HEMOGLOBIN 11.3 g/dl (12.0-15.5); MEAN CORPUSCULAR HEMOGLOBIN 30.5 pg (27.0-33.0); MEAN CORPUSCULAR HGB CONC 31.7 g/dl (32.0-36.5); MEAN CORPUSCULAR VOLUME 96.2 fl (80.0-96.0); PLATELET COUNT, AUTOMATED 183 10^3/uL (150-450); WHITE BLOOD COUNT 7.3 10^3/uL (4.0-10.0)
[2020-10-15] MEDS: CREON-24 CAPSULE PO SCH ×2 (07:56→11:11)
[2020-10-15] MEDS ORDERED: CYANOCOBALAMIN 500 MCG TAB PO SCH (09:00)
[2020-10-15] MEDS ORDERED: oxyBUTYnin *DITROPAN XL* 5 MG TABCR PO SCH (09:00)
[2020-10-15] MEDS ORDERED: MIRALAX *UNIT DOSE* 17GM PACKET PO SCH (09:00)
[2020-10-15] MEDS ORDERED: OMEPRAZOLE 20 MG CAP PO SCH (09:00)
[2020-10-15] MEDS ORDERED: MOM 30ML SUSPENSION UDC PO SCH (09:00)
[2020-10-15] MEDS ORDERED: OCUVITE 1 TAB PO SCH (09:00)
[2020-10-15 15:10] VITALS: BP 112/63
[2020-10-15] MEDS ORDERED: RIVAROXABAN 10 MG TAB (XARELTO) PO SCH (18:00)
--- NOTE | 2020-10-17 11:09 | DSES ---
DISCHARGE SUMMARY DATE OF ADMISSION: 10/14/2020 DATE OF DISCHARGE: 10/15/2020 ATTENDING: Conner Shaver MD. ADMITTING DIAGNOSIS: Osteoarthritis left knee OTHER DIAGNOSES: Include: 1. History of breast cancer. 2. Gastric reflux disease. 3. Seasonal allergies. 4. History of a DVT. DISCHARGE DIAGNOSIS: Osteoarthritis left knee status post left total knee arthroplasty. HISTORY: This is a 65-year-old female patient with progressively worsening left knee pain and stiffness. She failed to improve with conservative management. She was admitted for elective knee replacement on the left side. OPERATION PERFORMED: Left total knee arthroplasty. HOSPITAL COURSE: The patient was admitted on the day of surgery and underwent a left total knee arthroplasty which was uneventful. She did well in the post-operative period and her hospital course was without complications. She was up with physical therapy per their protocol and her pain was controlled. On the day of discharge she was weightbearing as tolerated on her left lower extremity. She will use Julio César stockings for 30 days post-op for DVT prophylaxis. She will also resume her Xarelto 10 mg per the protocol and she will continue that medication per her primary for her history of a DVT. She will follow up with in our office in 10-14 days for a surgical follow up. She will resume her pre-operative medications and diet. She will use oral pain medications for pain control. She was given instructions to include, but not limited to wound monitoring and activity limitations. Please refer to the medical record for further details. Conner Shaver MD
--- NOTE | 2020-10-17 16:36 | RO ---
OPERATIVE NOTE DATE OF OPERATION: 10/14/2020 PREOPERATIVE DIAGNOSIS: Left knee osteoarthritis. POSTOPERATIVE DIAGNOSIS: Left knee osteoarthritis. PROCEDURE: Left total knee arthroplasty, Attune rotating platform, cruciate retaining, a size 5 femur, size 6 tibial tray, 8 polyethylene, 32 patellar button. SURGEON: Conner Shaver M.D. DINING ROOM COORDINATOR: OLIVA Berg ANESTHESIA: General ESTIMATED BLOOD LOSS: 50. COMPLICATIONS: None. PROCEDURE: The patient was taken to the operating room and placed in supine position after general anesthesia was induced. The left lower extremity was prepped and draped in the usual sterile fashion. A timeout was performed. A tourniquet was inflated and a longitudinal incision was made over the anterior aspect of the knee. Sharp dissection was carried down through subcutaneous tissue. I then performed a medial parapatellar arthrotomy per routine, everted the patella, flexed the knee, removed some osteophytes, used a canal initiator on the femoral side followed by the intramedullary guide set at 9 mm cut, 5 degrees of valgus. This was pinned in place and the distal femoral cut was made without difficulty. I then sized the femur to be a 5. Drill holes were placed in the end of the femur and the cutting block was secured. The remaining cuts were made. I then freed up the PCL attachment a little bit and then placed retractors and then prepared the tibia in the appropriate amount of posterior slope and valgus. A proximal tibial cut was made. I then used a branch operations coordinator to remove soft tissue and osteophytes from either side of the knee. I made the sulcus cut with a sulcus cutting guide and then prepared the tibial surface which was sized to be a 6. This was pinned in place, drilled, broached and I had previously used spacer blocks and determined that an 8 was likely to be the most appropriate for flexion, extension, stability. At this point, we placed the 8 polyethylene, the 5 femur, the 6 tibial tray and the soft tissue balance was excellent. Alignment was excellent. I then freehand cut the patella, removing about 7 mm of bone and we sized the patella to be a 32. Drill holes were placed and the patellar button was placed and tracked very nicely. We then removed the trial components, irrigated copiously, placed the Exparel in the deep tissues including the posterior capsule but aspirating first. The finance assistant prepared the bone cement in the modern technique. The surfaces were copiously irrigated and dried and I cemented in the components, brought the knee out into extension, cemented on the patella, held it in place with a patellar clamp. We removed all excellent bone cement. I then copiously irrigated, placed a TXA deep in the wound and then began wound closure proximally with interrupted #1 Vicryl suture. Once the cement had hardened, I removed the patellar clamp, irrigated again in the deep tissues and repaired the remaining wound with running Stratafix which obtained a watertight closure. I put the knee through a range of motion. The patella was tracking very nicely. I had made sure there was no extruded cement. I then irrigated the subcu. I deflated the tourniquet once the cement had hardened, closed the subcu with 2-0 Vicryl and the skin with penny. A sterile dressing was applied. She was taken to the recovery room in stable condition. There were no known complications. The plan will be routine postop. The finance assistant was instrumental in holding retractors and assisting in mixing the bone cement and assisting in wound closure.
== END 2020-10-15 15:45 | disposition home health service (06) | DRG 302 ==
LOC: M OR 10:59 → M MS5PR 16:50
PROVIDERS: ADMIT Orthopaedic Surgery; ATTEND Orthopaedic Surgery
PROC: 0SRD0J9 Replacement of Left Knee Joint with Synthetic Substitute, Cemented, Open Approach (ICD-10-PCS; principal; 2020-10-14 15:15)
DX: M17.12 Unilateral primary osteoarthritis, left knee (principal); K21.9 Gastro-esophageal reflux disease without esophagitis; Z88.5 Allergy status to narcotic agent; Z88.8 Allergy status to other drugs, medicaments and biological substances; Z91.018 Allergy to other foods; Z88.7 Allergy status to serum and vaccine; Z79.899 Other long term (current) drug therapy; Z85.118 Personal history of other malignant neoplasm of bronchus and lung; Z96.651 Presence of right artificial knee joint; Z85.3 Personal history of malignant neoplasm of breast; Z79.01 Long term (current) use of anticoagulants; Z86.718 Personal history of other venous thrombosis and embolism

== ENCOUNTER 2020-10-24 10:42 | Emergency (ER) | payer OTHER, MEDICARE ==
[~2020-10-24] VITALS: Ht 160 cm; Wt 86.4 kg
[~2020-10-24 10:42] MED LIST changes: -LIDOCAINE 1% MDV 20ML VIAL SQ PRN; -LR 1,000 ML IV ONE; -MIDAZOLAM INJ 2MG/2ML VIAL (J2250 PER 1MG) IV PRN; -ceFAZolin SOD 2 GM in IV 1 EA IV ONE; -fentaNYL 100 MCG/2 ML INJECTION (J3010) IV PRN
--- OUTSIDE RECORDS SUMMARY | 2020-10-24 10:50 | CCD | Continuity of Care Document ---
Author Author Marguerite FERRIS MD Organization Unknown Address [address] [place] [address], [address] [address] Phone [phone] Problems Description No Active Problems Social History [...] 5 days prior to surgery 22gm Conner Ferris MD 10/03/2020 Hibiclens 4% Liquid use in shower once daily for 5 days before surgery 1units Conner Ferris MD 10/03/[address] Take One Capsule By Mouth Every Day Unknown Oxybutynin Chloride ER 5mg Tablets ER 24HR Take One Tablet By Mouth Every Day Unknow n Anastrozole 1mg Tablets Take One Tablet By Mouth Every Day Unknown Vitamin C 500mg Chewtabs every other day Unknown Creon [id number] Caps DR Part Unknown Preservision Areds Tablets 2 tabs by mouth twice a day Unknown Calcium 600 600mg Tablets 1 by mouth twice a day Unknown Xarelto 20mg Tablets 1 by mouth every day Unknown Culturelle Capsules Unknown Prilosec 40mg Capsules DR 1 by mouth every day Unknown Turmeric Curcumin 500mg Capsules Unknown Biotin Maximum 96608ycz Tablets Dispers Unknown Vitamin D3 1000Unit Capsules [...] Result H/L Range Note Prothrombin Time/Inr 10/03/2020 [facility] C entr [address] [place] [address] (315)- - Prothrombin Time 12.9 seconds Normal 12.5-14.3 Inr 0.95 Normal 1 Comprehensive Metabolic Profil 10/03/2020 [facility] [address] [place] [address] (315)- - Glucose, Fasting 107 mg/dL High [...] 1.1 Low 1.2-2.2 CBC With Differential 10/03/2020 [facility] [address] [place] [address] (315)- - White Blood Count 4.6 10 [...] 36.0-66.0 Lymph % 24.9 % Normal 24.0-44.0 [place] % 7.4 % High 0.0-5.0 Eos % 2.2 % Normal 0.0-3.0 Baso % 0.7 % Normal 0.0-1.0 Immature Granulocyte % 0.0 % Normal 0-3.0 Nucleated Red Blood Cell % 0.0 % Normal 0-0 Neutrophils # 3.0 10 Normal 1.5-8.5 Lymph # 1.2 10 Low 1.5-5.0 [place] # 0.3 10 Normal 0.0-0.8 Eos # 0.1 10 Normal 0.0-0.5 Baso # 0.0 10 Normal 0.0-0.2 Laboratory test finding 10/03/2020 [facility] [address] [place] [address] (315)- - Erythrocyte Sedimentation Rate 16 mm/hr Normal 0-30 Laboratory test finding 09/23/2020 [facility] [address] [place] [address] (315)- - Erythrocyte Sedimentation Rate <pending> Xray 09/23/2020 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 Procedures Date Code Description Status 10/14/2020 82184 Arthroplasty "Total Knee" Medial & Lateral W/ Or W/O Patella Resu Completed 10/14/2020 60719 Arthroplasty "Total Knee" Medial & Lateral W/ Or W/O Patella Resu Completed 09/22/2020 49899 Inject Tendon Sheath, Ligament C ompleted 08/05/2020 68218 X-Ray Knee Complete W/Obliques & Tunnel And/Or Standing Views Completed 07/25/2020 54767 X-Ray Ankle Complete Completed 07/08/2020 92859 X-Ray Ankle Complete Completed 07/08/2020 29769 Apply Cast Short Leg Completed Medical Devices Description No Information Available Encounters Type Date Location Provider Dx Diagnosis Office Visit 10/10/2020 3:00p [facility] Snow PA-C Z0 1.818 Encounter for other preprocedural examination M17.12 Unilateral primary osteoarth ritis, left knee Office Visit 09/22/2020 8:30a [place] Chi[facility], P.[facility]. M77.11 Lateral epicondylitis, right elbow [...] ritis, left knee Office Visit 07/08/2020 2:00p [place] Jasvir K. Mcelheran, P.A. M25.572 Pain in left ankle and joints of left foot M19.072 Primary osteoarthritis, left ankle and foot S93.402S Sprain of unspecified ligame nt of left ankle, sequela Assessments Date Code Description Provider 10/14/2020 M17.12 Unilateral primary osteoarthriti s, left knee Jeremy Snow PA-C 10/14/2020 M17.12 Unilateral primary osteoarthriti s, left knee Conner Ferris MD 10/10/2020 Z01.818 Encounter for other preprocedura l [...] o f left ankle, sequela Jasvir Chiang, [place] Plan of Treatment Future Appointment(s):* 10/26/2020 2:00 pm - Conner Ferris MD at [place] Functional Status Description No Information Available Mental Status Description No Information Available Referrals Refer to Reason for Referral Status Appt Date Conner Ferris MD SURGERY LT TKR WRITTEN AUTH. LS Created [address] [facility], [address] [address] [phone] Conner Ferris [place] [address] PER NELIDA LUCIA @ [facility] REF #[id number]. LS Created [facility], [address] [address] [phone] Jasvir Chiang PA DME PER B/S WEB NO AUTH REQU IRED FOR CAST BOOT (L3260) AND COVERED AT 80% TO ALONDRA MCKEON Created [facility] [place] [id number] [phone]
--- OUTSIDE RECORDS SUMMARY | 2020-10-24 10:50 | CCD | Continuity of Care Document ---
Author Author Marguerite Malik Automate d Organization Unknown Address Unknown Phone Unavailable Care Team Providers Care Carbonizer Tester Name Role Phone Blayne Shaver Unavailable Conner Shaver Unavailable [facility] Unavailable [phone] Unavailable Unavailable Unavailable [phone] Luz Odonnell Unavailable June Hanson Unavailable Problems Name Dates Details Unilateral primary osteoarthritis, left knee (M17.12) 17-Oct-2020 Status: Active Aftercare following joint replacement surgery (Z47.1) 17-Oct-2020 Status: Active Medications Name Dates Details Collagen Hydrolysate Blayne Shaver Active PreserVision AREDS Blayne Shaver* Start : 19-Oct-2020 Active Vitamin C 500 MG Blayne Shaver* Start : 19-Oct-2020 Active Multivitamin Blayne Shaver* Start : 19-Oct-2020 Active Biotin 97630 MCG Blayne Shaver* Start : 19-Oct-2020 Active Turmeric Curcumin 500 MG Fish, Blayne* Start : 19-Oct-2020 Active Vitamin D3 2000 UNIT Blayne Shaver* Start : 19-Oct-2020 Active Z13-Qlqaor 1 MG Blayne Shaver* Start : 19-Oct-2020 Active Calcium 600 600 MG Fish, Blayne* Start : 19-Oct-2020 Active Tylenol Extra Strength 500 MG 1-2 tablets every 6-8 hours as needed for pain higher than 4/10Combination of 30 00mg maximum with oxycodone/acetaminophen Blayne Shaver* Start : 19-Oct-2020 Active Creon Fish, Blayne* Start : 19-Oct-2020 Active Omeprazole 20 MG Fish, Blayne* Start : 19-Oct-2020 Active oxyCODONE-Acetaminophen 5-325 MG 1-2 tablets every 4 hours as needed for pain higher than 6/10Maximum of 8 tablet s daily Sivakumar Blayne* Start : 19-Oct-2020 Active Oxybutynin Chloride ER 5 MG Sivakumar Blayne* Start : 19-Oct-2020 Active Anastrozole 1 MG Sivakumar Blayne* Start : 19-Oct-2020 Active Xarelto 20 MG Sivakumar Blayne* Start : 19-Oct-2020 Active Acetaminophen-Codeine #4 300-60 MG 1 tablet every 6 hours as needed for pain, not to exceed 4 tablets daily Faiza Shaver MD Start : 23-Jan-2019 End : 30-Jan-2019 Inactive Xarelto 15 MG Ceci Garcia MD Start : 22-Jan-2019 End : 30-Jan-2019 Inactive Turmeric 500 MG Faiza Shaver MD Start : 20-Jan-2019 End : 30-Jan-2019 Inactive Omeprazole 40 MG Faiza Shaver MD Start : 20-Jan-2019 End : 30-Jan-2019 Inactive Ondansetron HCl 4 MG 1 tablet every 6-8 hours a needed for nausea, not to exceed 3 tablets daily Faiza Shaver MD Start : 20-Jan-2019 End : 30-Jan-2019 Inactive oxyCODONE-Acetaminophen 5-325 MG 1 tablet every 4 hours as needed for painNot to exceed 6 tablets daily Faiza Shaver MD Start : 20-Jan-2019 End : 30-Jan-2019 Inactive Xarelto 10 MG Faiza Shaver MD Start : 20-Jan-2019 End : 22-Jan-2019 Inactive Biotin 10 MG Faiza Shaver MD Start : 20-Jan-2019 End : 30-Jan-2019 Inactive Cholecalciferol 1000 UNIT Faiza Shaver MD Start : 20-Jan-2019 End : 30-Jan-2019 Inactive Cyanocobalamin 500 MCG Faiza Shaver MD Start : 20-Jan-2019 End : 30-Jan-2019 Inactive Culturelle [facility] Faiza Shaver MD Start : 20-Jan-2019 End : 30-Jan-2019 Inactive Multivitamin Faiza Shaver MD Start : 20-Jan-2019 End : 30-Jan-2019 Inactive Allergies and Adverse Reactions Name Dates Details Fresh fruits and vegetables (Allergy) O nset: 19-Oct-2020 Status: Active Tree Nuts (Allergy) Onset: 19-Oct-2020 Status: Active Tramadol (Allergy) Onset: 19-Oct-2020 Status: Active Morphine (Allergy) Onset: 19-Oct-2020 Status: Active Results Date Description Value Details No Known Results Plan of Care Name Dates Details Instructions Diet:Regular Diet Ins truction Type: Nutrition education Payers * [employer]
--- OUTSIDE RECORDS SUMMARY | 2020-10-24 10:50 | CCD | Continuity of Care Document ---
Author Author Marguerite SNOW PA-C Organization Unknown Address [address] [place] [address] Phone [phone] Problems Description No Active Problems Social History [...] 500mg Chewtabs every other day Unknown Creon [id number] Caps DR Part Unknown Preservision Areds Tablets 2 tabs by mouth twice a day Unknown Calcium 600 600mg Tablets 1 by mouth twice a day Unknown Xarelto 20mg Tablets 1 by mouth every day Unknown Culturelle Capsules Unknown Prilosec 40mg Capsules DR 1 by mouth every day Unknown Turmeric Curcumin 500mg Capsules Unknown Biotin Maximum [id number] Tablets Dispers Unknown Vitamin D3 1000Unit Capsules [...] Result H/L Range Note Prothrombin Time/Inr 10/03/2020 [facility] C entr [address] [place] [address] (315)- - Prothrombin Time 12.9 seconds Normal 12.5-14.3 Inr 0.95 Normal 1 Comprehensive Metabolic Profil 10/03/2020 [facility] [address] [place] [address] (315)- - Glucose, Fasting 107 mg/dL High [...] 1.1 Low 1.2-2.2 CBC With Differential 10/03/2020 [facility] [address] [place] [address] (315)- - White Blood Count 4.6 10 [...] 36.0-66.0 Lymph % 24.9 % Normal 24.0-44.0 [place] % 7.4 % High 0.0-5.0 Eos % 2.2 % Normal 0.0-3.0 Baso % 0.7 % Normal 0.0-1.0 Immature Granulocyte % 0.0 % Normal 0-3.0 Nucleated Red Blood Cell % 0.0 % Normal 0-0 Neutrophils # 3.0 10 Normal 1.5-8.5 Lymph # 1.2 10 Low 1.5-5.0 [place] # 0.3 10 Normal 0.0-0.8 Eos # 0.1 10 Normal 0.0-0.5 Baso # 0.0 10 Normal 0.0-0.2 Laboratory test finding 10/03/2020 [facility] [address] [place] [address] (315)- - Erythrocyte Sedimentation Rate 16 mm/hr Normal 0-30 Laboratory test finding 09/23/2020 [facility] [address] [place] [address] (315)- - Erythrocyte Sedimentation Rate <pending> Xray 09/23/2020 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 Procedures Date Code Description Status 10/14/2020 85020 Arthroplasty "Total Knee" Medial & Lateral W/ Or W/O Patella Resu Completed 10/14/2020 57225 Arthroplasty "Total Knee" Medial & Lateral W/ Or W/O Patella Resu Completed 09/22/2020 48325 Inject Tendon Sheath, Ligament C ompleted 08/05/2020 38588 X-Ray Knee Complete W/Obliques & Tunnel And/Or Standing Views Completed 07/25/2020 65157 X-Ray Ankle Complete Completed 07/08/2020 60861 X-Ray Ankle Complete Completed 07/08/2020 35409 Apply Cast Short Leg Completed Medical Devices Description No Information Available Encounters Type Date Location Provider Dx Diagnosis Office Visit 10/10/2020 3:00p [facility] Snow PA-C Z0 1.818 Encounter for other preprocedural examination M17.12 Unilateral primary osteoarth ritis, left knee Office Visit 09/22/2020 8:30a [place] [facility] M77.11 Lateral epicondylitis, right elbow [...] ritis, left knee Office Visit 07/08/2020 2:00p [place] Jasvir K. Mcelheran, P.A. M25.572 Pain in left ankle and joints of left foot M19.072 Primary osteoarthritis, left ankle and foot S93.402S Sprain of unspecified ligame nt of left ankle, sequela Assessments Date Code Description Provider 10/14/2020 M17.12 Unilateral primary osteoarthriti s, left knee Jeremy Snow PA-C 10/14/2020 M17.12 Unilateral primary osteoarthriti s, left knee Conner Shaver MD 10/10/2020 Z01.818 Encounter for other preprocedura [...] 2:00 pm - Conner Shaver MD at [place] Functional Status Description No Information Available Mental Status Description No Information Available Referrals Refer to Reason for Referral Status Appt Date Conner Shaver MD SURGERY LT TKR WRITTEN AUTH. LS Created [address] [facility], [address] [address] [phone] Conner Shaver [place]KR [address] PER NELIDA LUCIA @ [facility] REF #[id number]. LS Created [facility], [address] [address] [phone] Jasvir Chiang PA DME PER B/S WEB NO AUTH REQU IRED FOR CAST BOOT (L3260) AND COVERED AT 80% TO ALONDRA MCKEON Created [facility] [place] [id number] [phone]
--- OUTSIDE RECORDS SUMMARY | 2020-10-24 10:50 | CCD | Continuity of Care Document ---
Author Author Marguerite Malik Automate d Organization Unknown Address Unknown Phone Unavailable Care Team Providers Care Mortgage Funder Name Role Phone Blayne Shaver Unavailable Conner Shaver Unavailable [facility] Unavailable [phone] Unavailable Unavailable Unavailable [phone] Luz Odonnell Unavailable June Hanson Unavailable Problems Name Dates Details Unilateral primary osteoarthritis, left knee (M17.12) 17-Oct-2020 Status: Active Aftercare following joint replacement surgery (Z47.1) 17-Oct-2020 Status: Active Medications Name Dates Details Collagen Hydrolysate Blayne Shaver Active PreserVision AREDS Blayne Shaver* Start : 19-Oct-2020 Active Vitamin C 500 MG Blayne Shaver* Start : 19-Oct-2020 Active Multivitamin Blayne Shaver* Start : 19-Oct-2020 Active Biotin 01837 MCG Blayne Shaver* Start : 19-Oct-2020 Active Turmeric Curcumin 500 MG Fish, Blayne* Start : 19-Oct-2020 Active Vitamin D3 2000 UNIT Blayne Shaver* Start : 19-Oct-2020 Active A54-Rtybod 1 MG Blayne Shaver* Start : 19-Oct-2020 Active Calcium 600 600 MG Fish, Blayne* Start : 19-Oct-2020 Active Tylenol Extra Strength 500 MG 1-2 tablets every 6-8 hours as needed for pain higher than 4/10Combination of 30 00mg maximum with oxycodone/acetaminophen Blayne Shaver* Start : 19-Oct-2020 Active Creon Fish, Blanye* Start : 19-Oct-2020 Active Omeprazole 20 MG [...]
--- OUTSIDE RECORDS SUMMARY | 2020-10-24 10:54 | CCD ---
Author Author [facility] Organization [facility] Address Unknown Phone Unavailable Care Team Providers Care Photo Checker Name Role Phone FACUNDO QUINONEZLY Unavailable Unavailable [...] B Conner PERALTA Unavailable Unavailable Fish, B Cnoner PERALTA Unavailable Unavailable Fish, B Conner PERALTA [...] Unavailable Unavailable Roslyn Jerez MD Unavailable Unavailable Rsolyn Jerez MD Unavailable Unavailable Roslyn Jerez MD [...] [employer] Unavailable Unavailable [employer] Unavailable Unavailable MANOHAR (PATSY), Sade ATKINSON MD Unavailable Unavailab le MANHOAR (PATSY), Sade ATKINSON MD Unavailable Unavailab le [...] A Ja PERALTA Unavailable Unavailable Srikanth, A aJ PERALTA Unavailable Unavailable Srikanth, A Ja PERALTA [...] Soheila Dow MD Unavailable Unavailable Srikanth, Soheila Dwo MD Unavailable Unavailable Srikanth, Soheila Dow MD [...] Unavailable Unavailable JOHN MICHEL MD Unavailable Unavailable OJHN MICHEL MD Unavailable Unavailable JOHN MICHEL MD [...] is protected by Article 27-F of the [facility] Public Health law. If you continue you may have access to information: Regarding HIV / AIDS; Provided by facilities licensed or operated by the [facility] Office of Mental Health; or Provided by the [facility] Office for People With Developmental Disabilities. If such information is present, then the following [facility] mandated warning applies: This information has been [...] law may result in a fine or usp sentence or both. A general authorization for the release of medical or other information is NOT sufficient authorization for further disc losure. Allergies and Adverse Reactions Type Description Substance Reaction Status Data Source(s ) Tramadol Tramadol Tramadol active NETSMART ([facility]) Tree Nuts Tree Nuts Tree Nuts active NETSMART ([facility]) Fresh fruits and vegetables Fresh fruits and vegetables Fres h fruits and vegetables active NETSMART ([facility]) Morphine Morphine Morphine active NETSMART ([facility]) Family History Family Member Name Family Member Gender Family Member Status Date o f Status Description Data Source(s) Unknown Female Problem MEDENT ([facility]) Unknown Female Problem MEDENT ([facility]) Encounters Encounter Providers Location Date Indications Data Source(s ) 10/19/2020 12:00:00 AM EST - 021 05:23:35 PM EST NETSMART ([facility]) Office Visit Attender: Jeremy BAPTISTE Physical Therapy 02:00:00 PM EST MEDENT ([facility]) Outpatient Attender: TARYN GARNER MD [place] [facility] 10/2020 01:30:00 PM EST MEDENT ([facility] (WC 20ESGYN) WCenter 20 Min Est Die Try Out Worker [address] [place] [address] 09/23/2020 12:00:00 AM EST eCW1 ([facility]) Outpatient Attender: IRINA BAPTISTE Physical Therapy 09/22/2020 07:30:00 AM EST MEDENT ([facility]) Attender: DEMETRIO KLINE) MDReferrer: Licha Duke MD 09/13/2020 08:21:01 PM EST [facility] (WC 20ESGYN) WCenter 20 Min Est Die Try Out Worker [address] [place] [id number] 09/06/2020 12:00:00 AM EST eCW1 ([facility]) Outpatient Attender: Conner Shaver MD Physical Therapy 08/05/2020 0 7:45:00 AM EST MEDENT ([facility]) Outpatient Attender: LEAH Pickett/David/Edvin/Melina blackwood 08/01/2020 08:15:00 AM EST MEDENT ([facility] Outpatient Attender: IRINA BAPTISTE Physical Therapy 07/25/2020 02:30:00 PM EST MEDENT ([facility]) Outpatient Attender: TARYN GARNER MD [place] [facility] 01:00:00 PM EST MEDENT ([facility]) Outpatient Referrer: Roslyn KOENIGANTHONY-SJP.ANTHONY 07/03 12:00:00 AM EST - 07/18/2020 12:46:00 PM EST [facility] Outpatient [address] [facility] [address] 07/15/2020 12:00:00 AM EST eCW1 ([facility]) Outpatient Attender: Roslyn Jerez MDReferrer: RAVEN CISNEROSANTHONY-SJP.ANTHONY 07/14/2020 12:00:00 AM EST - 07/14/2020 11:55:07 AM EST [facility] OFFICE OUTPATIENT VISIT 15 MINUTES Attender: IRINA BAPTISTE Physical Therapy 07/08/2020 01:00:00 PM EST MEDENT ([facility]) (BC FU) Breast Center Follow Up [address] [place] [address] 07/01/2020 12:00:00 AM EDT eCW1 ([facility]) Unknown [address] [facility] [address] 07/01/2020 12:00:00 AM EDT eCW1 ([facility]) Outpatient [address] [facility] [address] 06/29/2020 12:00:00 AM EDT eCW1 ([facility]) Office Visit, Est Pt., Level 4 PC [address] [place] [address] 06/15/2020 12:00:00 AM EDT eCW1 ([facility]) Unknown [address] [facility] [address] 06/15/2020 12:00:00 AM EDT eCW1 ([facility]) (BC FU) Breast Center Follow Up [address] [place] [address] 06/13/2020 12:00:00 AM EDT eCW1 ([facility]) (BC FU) Breast Center Follow Up [address] [place] [address] 06/06/2020 12:00:00 AM EDT eCW1 ([facility]) Unknown [address] [facility] [address] 06/04/2020 12:00:00 AM EDT eCW1 ([facility]) (BC FU) Breast Center Follow Up [address] [place] [address] 05/30/2020 12:00:00 AM EDT eCW1 ([facility]) (WC PO) WCenter Post Op [address] [place] [address] 05/25/2020 12:00:00 AM EDT eCW1 ([facility]) Outpatient Attender: TARYN GARNER MD [facility] 11:30:00 AM EDT MEDENT ([facility] Outpatient [address] [facility] [address] 05/13/2020 12:00:00 AM EDT eCW1 ([facility]) Unknown [address] [facility] [address] 04/27/2020 12:00:00 AM EDT eCW1 ([facility]) Attender: DEMETRIO VILLELA ([place]) MDReferrer: Licha Duke MD 04/26/2020 08:20:08 PM EDT [facility] Attender: DEMETRIO VILLELA ([place]) MDReferrer: Licha Duke MD 04/26/2020 08:20:08 PM EDT [facility] Attender: DEMETRIO KLINE) MDReferrer: Licha Duke MD 04/26/2020 08:20:08 PM EDT [facility] Outpatient Attender: Blanye ShaverReferrer: Blayne Shaver EMERGENCY ROOM-[facility] 04/26/2020 11:57:00 AM EDT - 04/26/2020 11:57:[address] [facility] Outpatient Attender: TRAVIS QUINONEZ [id number] 04/25/2020 09:50:5 9 AM EDT [facility] Unknown [address] [facility] [address] 04/18/2020 12:00:00 AM EDT eCW1 ([facility]) Emergency Attender: SHAKILA Friedman: Blayne sharif 03/22/2020 08:20:00 AM EDT - 03/22/2020 08:26:00 AM EDT [facility] pitca Patient discharged. Outpatient Attender: IRINA BAPTISTE Physical Therapy 03/10/2020 02:15:00 PM EDT MEDENT ([facility]) [place] [address] [facility] [address] 03/09/2020 12:00:00 AM EDT eCW1 ([facility]) [place] [address] [facility] [address] 03/07/2020 12:00:00 AM EDT eCW1 ([facility]) [place] [address] [facility] [address] 03/02/2020 12:00:00 AM EDT eCW1 ([facility]) [place] [address] [facility] [address] 02/29/2020 12:00:00 AM EDT eCW1 ([facility]) Outpatient Referrer: IRINA BAPTISTE 02/25/2020 06:08 :00 AM EDT [facility] Unknown [address] [facility] [address] 02/15/2020 12:00:00 AM EDT eCW1 ([facility]) [place] [address] [facility] [address] 02/11/2020 12:00:00 AM EDT eCW1 ([facility]) [place] [address] [facility] [address] 02/10/2020 12:00:00 AM EDT eCW1 ([facility]) [place] [address] [facility] [address] 01/27/2020 12:00:00 AM EDT eCW1 ([facility]) [place] [address] [facility] [address] 01/20/2020 12:00:00 AM EDT eCW1 ([facility]) Outpatient Attender: JOHN MICHEL MD Physical Therapy 01:45:00 PM EDT MEDENT ([facility]) Outpatient Attender: Conner Shaver MD Physical Therapy 12/03/2019 0 1:00:00 PM EDT MEDENT ([facility]) Outpatient Attender: TARYN GARNER MD [place] [facility] 10/2019 08:45:00 AM EDT MEDENT ([facility] Outpatient Attender: IRINA BAPTISTE Physical Therapy 10/28/2019 08:15:00 AM EST MEDENT ([facility]) Outpatient Referrer: IRINA BAPTISTE 09/17/2019 05:04 :00 PM EST [facility] Outpatient Attender: TARYN GARNER MD [place] [facility] 10/2019 01:00:00 PM EST MEDENT ([facility] Emergency Attender: Je HERRING EMERGENCY ROOM-ER 0 03/25/2017 05:24:00 PM EDT - 03/05/2017 07:49:00 PM [facility] Emergency Attender: Je HERRING 05:49:00 PM EDT - 11/24/2016 07:42:00 PM [facility] Emergency Attender: Je HERRING 05:49:00 PM EDT - 05/17/2016 08:33:00 PM [facility] Emergency Attender: SHAKILA BAPTISTE EMERGENCY ROOM-ER 11/03/2015 03:26:00 AM EST - 11/03/2015 07:24:00 AM [facility] Emergency Attender: LIBERTAD BAPTISTE 08/08 10:34:00 PM EST - 08/08/2015 11:30:00 PM [facility] Emergency Attender: SHAKILA BAPTISTE 11:59:00 PM EDT - 03/30/2015 12:52:[address] [facility] Immunizations Vaccine Date Status Description Data Source(s) New in 2012. IIV4 07/19/2020 01:00:00 PM EST completed MEDENT ([facility] Medications Medication Brand Name Start Date Product Form Dose Route Admi nistrative Instructions Pharmacy Instructions Status Indications Reaction Description Data Source(s) Oxybutynin Chloride ER 5 MG Oxybutynin Chloride ER 10/19/2020 12:00 :00 AM EST 5.0 {mg} completed NETSMART ([facility]) oxyCODONE-Acetaminophen 5-325 MG oxyCODONE-Acetaminophen 12:00:00 AM EST 0 {mg} completed NETSMAR T ([facility]) Omeprazole 20 MG Omeprazole 10/19/2020 12:00:00 AM EST 20.0 {mg} completed NETSMART ([facility]) Collagen Hydrolysate Collagen Hydrolysate 10/19/2020 12:00:00 AM ES T 1.0 {asd} completed NETSMART ([facility]) Tylenol Extra Strength 500 MG Tylenol Extra Strength 10/19/2020 12:00:00 AM EST 500.0 {mg} completed NET SMART ([facility]) PreserVision AREDS PreserVision AREDS 10/19/2020 12:00:00 AM EST 1.0 {tablet} completed NETSMART ( [facility]) Creon Creon 10/19/2020 12:00:00 AM EST 85241.0 {unit} c ompleted NETSMART ([facility]) Vitamin C 500 MG Vitamin C 10/19/2020 12:00:00 AM EST 500.0 {mg} completed NETSMART ([facility]) J80-Xmcrch 1 MG G83-Vjhyxb 10/19/2020 12:00:00 AM EST 1.0 {mg} completed NETSMART ([facility]) Calcium 600 600 MG Calcium 600 10/19/2020 12:00:00 AM EST 600.0 {mg} completed NETSMART ([facility]) Turmeric Curcumin 500 MG Turmeric Curcumin 10/19/2020 12:00:[address] 500.0 {mg} completed NETSMART ([facility]) Vitamin D3 2000 UNIT Vitamin D3 10/19/2020 12:00:00 AM EST 2000. 0 {unit} completed NETSMART ([facility]) Multivitamin Multivitamin 10/19/2020 12:00:00 AM EST 1.0 {tablet } completed NETSMART ([facility]) Biotin 49274 MCG Biotin 10/19/2020 12:00:00 AM EST 63172.0 {mcg } completed NETSMART ([facility]) Anastrozole 1 MG Anastrozole 10/19/2020 12:00:00 AM EST 1.0 {mg} completed NETSMART ([facility]) Xarelto 20 MG Xarelto 10/19/2020 12:00:00 AM EST 20.0 {mg} completed NETSMART ([facility]) 20 mg 10/15/2020 12:00:00 AM EST tablet 30 TAKE ONE TABLET BY MOUTH ONCE DAILY TAKE ONE TABLET BY MOUTH ONCE DAILY SOLD: 10/15/2020 [facility] 5-325 mg 10/15/2020 12:00:00 AM EST tablet 30 TAKE 1-2 TABLETS BY MOUTH EVERY 4 HOURS NEEDED FOR PAIN MAXIMUM DAILY DOSE = 8 TABLETS TAKE 1-2 TABLETS BY MOUTH EVERY 4 HOURS NEEDED FOR PAIN MAXIMUM DAILY DOSE = 8 TABLETS SOLD: 10/15/2020 [facility] 0.3 ML Epinephrine 1 MG/ML Auto-Injector [Epipen] Epipen 2-P ak 10/05/2020 12:00:00 AM EST active M EDENT ([facility] Injection (SC)/(Im) 10/05/2020 12:00:00 AM EST completed MEDENT ([facility] Medication administered onsite Mupirocin 0.02 MG/MG Topical Ointment Mupirocin 10/03/2020 12:00:00 AM EST active [facility] chlorhexidine gluconate 40 MG/ML Medicated Liquid Soap [Hibi clens] Hibiclens 10/03/2020 12:00:00 AM EST active MEDENT ([facility]) 1 mg 09/16/2020 12:00:00 AM EST tablet 90 TAKE ONE TABLET BY MOUTH EVERY DAY TAKE ONE TABLET BY MOUTH EVERY DAY SOLD: 09/16/2020 [facility] 5 mg 09/06/2020 12:00:00 AM EST tablet extended release 24hr 30 TAKE ONE TABLET BY MOUTH EVERY DAY TAKE ONE TABLET BY MOUTH EVERY DAY SOLD: 10/03/2020 [facility] 5 mg 09/06/2020 12:00:00 AM EST tablet extended release 24hr 30 TAKE ONE TABLET BY MOUTH EVERY DAY TAKE ONE TABLET BY MOUTH EVERY DAY SOLD: 09/06/2020 [facility] 24 HR Oxybutynin chloride 5 MG Extended Release Oral Tablet Oxybutynin Chloride ER 5 MG Oxybutynin Chloride ER 5 MG 09/06/2020 12:00:00 AM EST 1.0 {tablet} active Oxybutynin Chloride ER 5 MG eCW1 ([facility]) 24 HR Oxybutynin chloride 5 MG Extended Release Oral Tablet Oxybutynin Chloride ER 5 MG Oxybutynin Chloride ER 5 MG 09/06/2020 12:00:00 AM EST 1.0 {tablet} suspended Oxybutynin Chloride ER 5 MG eCW1 ([facility]) 600 mg 08/12/2020 12:00:00 AM EST tablet 30 TAKE ONE TABLET BY MOUTH THREE TIMES A DAY FOR PAIN WITH FOOD TAKE ONE TABLET BY MOUTH THREE TIMES A D AY FOR PAIN WITH FOOD SOLD: 08/15/2020 [facility] 1 mg 08/12/2020 12:00:00 AM EST tablet 30 TAKE ONE TABLET BY MOUTH EVERY DAY TAKE ONE TABLET BY MOUTH EVERY DAY SOLD: 08/15/2020 [facility] 5-325 mg 08/12/2020 12:00:00 AM EST tablet 15 TAKE ONE TABLET BY MOUTH THREE TIMES A DAY NEEDED FOR PAIN MAXIMUM DAILY DOSE = 3 TAKE ONE TABLET BY MOUTH THREE TIMES A DAY NEEDED FOR PAIN MAXIMUM DAILY DOSE = 3 SOLD: 08/15/2020 [facility] Vitamin B 12 0.5 MG Oral Lozenge Vitamin B-12 active MEDENT ([facility]) 5 mg 05/26/2020 12:00:00 AM EDT tablet 20 TAKE ONE TABLET BY MOUTH EVERY 6 HOURS NEEDED FOR PAIN MAXIMUM DAILY DOSE = FOUR TABLETS TAKE ONE TABLET BY MOUTH EVERY 6 HOURS NEEDED FOR PAIN MAXIMUM DAILY DOSE = FOUR TABLETS SOLD: 05/26/2020 [facility] 5 mg 05/24/2020 12:00:00 AM EDT tablet 10 TAKE ONE TABLET BY MOUTH EVERY 6 HOURS NEEDED FOR PAIN MAXIMUM DAILY DOSE = 4 TAKE ONE TABLET BY MOUTH EVERY 6 HOURS NEEDED FOR PAIN MAXIMUM DAILY DOSE = 4 SOLD: 05/24/2020 [facility] Collagen Ultra active MED ENT ([facility] 500 mg 05/16/2020 12:00:00 AM EDT tablet 10 TAKE ONE TABLET BY MOUTH TWICE A DAY TAKE ONE TABLET BY MOUTH TWICE A DAY SOLD: 05/16/2020 [facility] 2.5-2.5 % 05/14/2020 12:00:00 AM EDT cream 30 APPLY ENTIRE TUBE TO RIGHT NIPPLE 2 HOURS BEFORE COMING TO HOSPITAL FOR SURGERY, COVER WITH PLASTIC. APPLY ENTIRE TUBE TO RIGHT NIPPLE 2 HOURS BEFORE COMING TO HOSPITAL FOR SURGERY, COVER WITH PLASTIC. SOLD: 05/16/[address] [facility] 20 mg 05/12/2020 12:00:00 AM EDT capsule,delayed release (DR/EC) 30 TAKE ONE CAPSULE BY MOUTH EVERY DAY TAKE ONE CAPSULE BY MOUTH EVERY DAY SOLD: 07/14/2020 [facility] 20 mg 05/12/2020 12:00:00 AM EDT capsule,delayed release (DR/EC) 30 TAKE ONE CAPSULE BY MOUTH EVERY DAY TAKE ONE CAPSULE BY MOUTH EVERY DAY SOLD: 08/15/2020 [facility] 20 mg 05/12/2020 12:00:00 AM EDT capsule,delayed release (DR/EC) 30 TAKE ONE CAPSULE BY MOUTH EVERY DAY TAKE ONE CAPSULE BY MOUTH EVERY DAY SOLD: 10/15/2020 [facility] 20 mg 05/12/2020 12:00:00 AM [...] -120,000 unit 04/26/2020 12:00:00 AM EDT capsule,delayed release(NATE) 270 TAKE ONE CAPSULE BY MOUTH EVERY [...] 5 DAYS PRIOR TO SURGERY SOLD: 08/28/2019 [facility] 4 % 08/27/2019 12:00:00 AM EST liquid 118 APPLY TO SKIN IN SHOWER OR BATH DAILY FOR 5 DAYS APPLY TO SKIN IN SHOWER OR BATH DAILY FOR 5 DAYS SOLD: 08/28/2019 [facility] Mupirocin 0.02 MG/MG Nasal Ointment [Bactroban] Bactroban Na remi 07/15/2019 12:00:00 AM EST completed MEDENT ([facility] ) chlorhexidine gluconate 40 MG/ML Medicated Liquid Soap [Hibi clens] Hibiclens 07/15/2019 12:00:00 AM EST TOPICAL completed MEDENT ([facility] ) Insurance Providers Payer name Policy type / Coverage type Policy ID Covered democrat ID Covered democrat's relationship to frances Policy Frances Plan Information [employer] CLAIM ADMIN WORK COMP [id number] SP [id number] MEDICARE BLUE PPO [id number] SP [id number] MEDICARE [id number] SP [id number] BCBS [place] HMO [id number] SP [id number] [place]BS [place] PPO 302/[id number] SP [id number] HMO BLUE [id number] SP [id number] MEDICARE BLUE PPO [id number] SP [id number] [place] [id number] [place] MED[place] [id number] [place] H[place] PPO POS [id number] [place] HMO PPO POS [id number] [place] INDEMNITY [id number] 0 [id number] MEDICARE BLUE PPO [id number] SP [id number] MEDICARE [id number] Janine [id number] EXCELLUS BCBS MEDICARE [id number] Janine [id number] MEDICARE [id number] Janine [id number] EXCELLUS BCBS MCR HMO [id number] S [id number] EXCELLUS BCBS B [id number] S [id number] POMCO [id number] S [id number] EXCELLUS MEDICARE BLUE PPO G [id number] Self [id number] [place] COMP INS [id number] S [id number] BCBS HMO BLUE [id number] S [id number] POMCO [id number] S [id number] EXCELLUS BCBS MCR HMO [id number] S [id number] EXCELLUS BCBS B [id number] S [id number] MEDICARE BLUE PPO [id number] SP [id number] BCBS HMO BLUE [id number] S [id number] BCBS HMO BLUE [id number] S [id number] N[place] [id number] S [id number] BLUE [place]OSS BLUE [place]IELD MCR - RECURRING HM [id number] 18 [id number] MEDICARE -RECURRING HM [id number] 18 [id number] BLUE CROSS BLUE SHIELD MCR -OP HM [id number] 18 [id number] [place] MEDIC[place] HM [id number] 18 [id number] MEDICARE PART A -RECURRING [id number] 18 [id number] BLUE CROSS BLUE SHIELD -RECURRING [id number] 18 [id number] Ghi/Emblem HLTH (pr) Medigap Part B [id number] Family Depende nt [id number] Ghi FHP-(DO Not Use) Medigap Part B [id number] Self [id number] [place] [id number] Self [id number] Blue Shield MCR Advantage Commercial [id number] Self [id number] [place] (pr) Medigap Part B [id number] Self [id number] [place] Claims (WC) Workers Compensation [id number] Self [id number] Ghi/Emblem HLTH (pr) Medigap Part B [id number] Family Depende nt 360789327 Ghi FHP-(DO Not Use) Medigap Part B [id number] Self [id number] [place] [id number] Self [id number] Ghi/Emblem HLTH (pr) Medigap Part B [id number] Family Depende nt 585874639 Ghi FHP-(DO Not Use) Medigap Part B [id number] Self [id number] [place] [id number] Self [id number] Ghi/Emblem HLTH (pr) Medigap Part B 415693379 Family Depende nt 200075543 Ghi FHP-(DO Not Use) Medigap Part B [id number] Self [id number] [place] [id number] Self [id number] Ghi/Emblem HLTH (pr) Medigap Part B [id number] Family Depende nt 695585888 Ghi FHP-(DO Not Use) Medigap Part B [id number] Self [id number] [place] [id number] Self [id number] Ghi/Emblem HLTH (pr) Medigap Part B [id number] Family Depende nt 539293626 Ghi FHP-(DO Not Use) Medigap Part B [id number] Self [id number] [place] [id number] Self [id number] Ghi/Emblem HLTH (pr) Medigap Part B 864232071 Family Depende nt 206282336 Ghi FHP-(DO Not Use) Medigap Part B [id number] Self [id number] [place] [id number] Self [id number] Ghi/Emblem HLTH (pr) Medigap Part B [id number] Family Depende nt 033752542 Ghi FHP-(DO Not Use) Medigap Part B [id number] Self [id number] [place] [id number] Self [id number] BCBS [place] HMO [id number] SP [id number] Ghi/Emblem HLTH (pr) Medigap Part B 805471976 Family Depende nt 910171034 Ghi FHP-(DO Not Use) Medigap Part B [id number] Self [id number] [place] [id number] Self [id number] Ghi/Emblem HLTH (pr) Medigap Part B [id number] Family Depende nt 501843870 Ghi FHP-(DO Not Use) Medigap Part B [id number] Self [id number] [place] [id number] Self [id number] Ghi/Emblem HLTH (pr) Medigap Part B 382690365 Family Depende nt 734434437 Ghi FHP-(DO Not Use) Medigap Part B [id number] Self [id number] [place] [id number] Self [id number] Ghi/Emblem HLTH (pr) Medigap Part B 737520422 Family Depende nt 082312161 Ghi FHP-(DO Not Use) Medigap Part B [id number] Self [id number] [place] [id number] Self [id number] HMO BLUE [id number] SP [id number] ANSI-Commercial [id number] Ghi/Emblem HLTH (pr) Medigap Part B 363926036 Family Depende nt 094373245 Ghi FHP-(DO Not Use) Medigap Part B [id number] Self [id number] [place] [id number] Self [id number] Ghi/Emblem HLTH (pr) Medigap Part B 013280330 Family Depende nt 279247744 Ghi FHP-(DO Not Use) Medigap Part B [id number] Self [id number] [place] [id number] Self [id number] Ghi/Emblem HLTH (pr) Medigap Part B [id number] Family Depende nt 672905748 Ghi FHP-(DO Not Use) Medigap Part B [id number] Self [id number] [place] [id number] Self [id number] BLUE CROSS BLUE SHIELD -O/P [id number] 18 [id number] Ghi/Emblem HLTH (pr) Medigap Part B 110416918 Family Depende nt 845969727 Ghi FHP-(DO Not Use) Medigap Part B [id number] Self [id number] [place] Commercial [id number] Self [id number] Ghi/Emblem HLTH (pr) Medigap Part B 276840845 Family Depende nt 241840824 Ghi FHP-(DO Not Use) Medigap Part B [id number] Self [id number] [place] [id number] Self [id number] Ghi/Emblem HLTH (pr) Medigap Part B 601591338 Family Depende nt 273622253 Ghi FHP-(DO Not Use) Medigap Part B [id number] Self [id number] [place] [id number] Self [id number] Ghi/Emblem HLTH (pr) Medigap Part B 093281209 Family Depende nt 024755425 Ghi FHP-(DO Not Use) Medigap Part B [id number] Self [id number] [place] [id number] Self [id number] EXCELLUS BCBS B [id number] S [id number] Ghi/Emblem HLTH (pr) Medigap Part B 071613893 Family Depende nt [id number] Ghi FHP-(DO Not Use) Medigap Part B [id number] Self [id number] [place] Commercial [id number] Self [id number] BCBS [place] PPO 302/307 [id number] SP [id number] Ghi/Emblem HLTH (pr) Medigap Part B [id number] Family Depende nt [id number] Ghi FHP-(DO Not Use) Medigap Part B [id number] Self [id number] [place] Commercial [id number] Self [id number] Ghi/Emblem HLTH (pr) Medigap Part B [id number] Family Depende nt [id number] Ghi FHP-(DO Not Use) Medigap Part B [id number] Self [id number] [place] [id number] Self [id number] Ghi/Emblem HLTH (pr) Medigap Part B [id number] Family Depende nt [id number] Ghi FHP-(DO Not Use) Medigap Part B [id number] Self [id number] [place] [id number] Self [id number] Ghi/Emblem HLTH (pr) Medigap Part B [id number] Family Depende nt [id number] Ghi FHP-(DO Not Use) Medigap Part B [id number] Self [id number] [place] [id number] Self [id number] Ghi/Emblem HLTH (pr) Medigap Part B [id number] Family Depende nt [id number] Ghi FHP-(DO Not Use) Medigap Part B [id number] Self [id number] [place] [id number] Self [id number] Ghi/Emblem HLTH (pr) Medigap Part B [id number] Family Depende nt [phone] Ghi FHP-(DO Not Use) Medigap Part B [id number] Self [id number] [place] [id number] Self [id number] Ghi/Emblem HLTH (pr) Medigap Part B [id number] Family Depende nt [id number] Ghi FHP-(DO Not Use) Medigap Part B [id number] Self [id number] [place] [id number] Self [id number] Ghi/Emblem HLTH (pr) Medigap Part B [id number] Family Depende nt [phone] Ghi FHP-(DO Not Use) Medigap Part B [id number] Self [id number] [place] [id number] Self [id number] [employer] [id number] SP [id number] Ghi/Emblem HLTH (pr) Medigap Part B [id number] Family Depende nt [id number] Ghi FHP-(DO Not Use) Medigap Part B [id number] Self [id number] [place] [id number] Self [id number] Ghi/Emblem HLTH (pr) Medigap Part B [id number] Family Depende nt [id number] Ghi FHP-(DO Not Use) Medigap Part B [id number] Self [id number] [place] [id number] Self [id number] Ghi/Emblem HLTH (pr) Medigap Part B [id number] Family Depende nt [phone] Ghi FHP-(DO Not Use) Medigap Part B [id number] Self [id number] [place] [id number] Self [id number] Ghi/Emblem HLTH (pr) Medigap Part B [id number] Family Depende nt [phone] Ghi FHP-(DO Not Use) Medigap Part B [id number] Self [id number] [place] Medigap Part B [id number] Self [id number] [employer] CLAIMS -RECURRING [id number] Ghi/Emblem HLTH (pr) Medigap Part B [id number] Family Depende nt [id number] Ghi FHP-(DO Not Use) Medigap Part B [id number] Self [id number] [place] Medigap Part B [id number] Self [id number] Ghi/Emblem HLTH (pr) Medigap Part B [id number] Family Depende nt [id number] Ghi FHP-(DO Not Use) Medigap Part B [id number] Self [id number] [place] Medigap Part B [id number] Self [id number] [facility] HMO/PPO/POS [id number] 0 [id number] Ghi/Emblem HLTH (pr) Medigap Part B [id number] Family Depende nt [phone] Ghi FHP-(DO Not Use) Medigap Part B [id number] Self [id number] [place] Medigap Part B [id number] Self [id number] Ghi/Emblem HLTH (pr) Medigap Part B [id number] Family Depende nt [phone] Ghi FHP-(DO Not Use) Medigap Part B [id number] Self [id number] [place] Medigap Part B [id number] Self [id number] Ghi/Emblem HLTH (pr) Medigap Part B [id number] Family Depende nt [phone] Ghi FHP-(DO Not Use) Medigap Part B [id number] Self [id number] [place] Medigap Part B [id number] Self [id number] [place] PPO 302/307 [id number] SP [id number] Ghi/Emblem HLTH (pr) Medigap Part B [id number] Family Depende nt [phone] Ghi FHP-(DO Not Use) Medigap Part B [id number] Self [id number] [place] Medigap Part B [id number] Self [id number] Ghi/Emblem HLTH (pr) Medigap Part B [id number] Family Depende nt [phone] Ghi FHP-(DO Not Use) Medigap Part B [id number] Self [id number] [place] Medigap Part B [id number] Self [id number] Ghi/Emblem HLTH (pr) Medigap Part B [id number] Family Depende nt [phone] Ghi FHP-(DO Not Use) Medigap Part B [id number] Self [id number] [place] Medigap Part B [id number] Self [id number] [employer] BCBS B [id number] S YNC [id number] [employer] O [id number] S [id number] [employer] PPO O [id number] S [id number] [employer] [id number] SP [id number] Oct[employer] Claims (WC) Workers Compensation Self OCTAVIO CLAIMS -RECURRING [id number] [phone] [facility] WC [id number] S [id number] [employer] Claims (WC) Workers Compensation Self [employer]OM[employer] [id number] Janine [id number] [employer]-RECURRING [id number] Ghi/Emblem HLTH (pr) Medigap Part B Family Depende nt Ghi FHP-(DO Not Use) Medigap Part B Self [employer] (pr) Commercial Self [id number] Problems, Conditions, and Diagnoses Code Display Name Description Problem Type Effective Dates Data Source(s) Z47.1 Aftercare following joint replacement israel rgery Aftercare following joint replacement surgery Problem 10/17/2020 12:00:00 AM EST NETSMART ([facility]) M17.12 Unilateral primary osteoarthritis, left knee Unilateral primary osteoarthritis, left knee Problem 10/17/2020 12:00:00 AM EST NETSMAR T ([facility]) N39.3 Incontinence Incontinence in female Problem 07/15/2020 12:00:00 AM EST eCW1 ([facility]) I51.7 [id number] Cardiomegaly Problem 07/01/2020 12:00:00 AM EDT eCW1 ([facility]) Z46.89 [id number] Encounter for fitting and adjustment of p essary Problem 06/15/2020 12:00:00 AM EDT eCW1 ([facility]) N81.10 [id number] Pelvic organ prolapse quantification stag e 4 cystocele Problem 06/15/2020 12:00:00 AM EDT eCW1 ([facility]) C50.411 [id number] Malignant neoplasm o f upper-outer quadrant of right female breast Problem 06/06/2020 12:00:00 AM EDT eCW1 ([facility]) C50.911 [id number] Malignant neoplasm o f right female breast, unspecified estrogen receptor status, unspecified site of breast Problem 0 02/15/2020 12:00:00 AM EDT eCW1 ([facility]) C50.911 [id number] Malignant neoplasm of unspecifie d site of right female breast Problem 01/27/2020 12:00:00 AM EDT eCW1 ([facility]) I51.7 Cardiomegaly Cardiomegaly Diagnosis 07/14/2020 10:26:58 A M EST [facility] E56.9 Vitamin deficiency, unspecified VITAMIN DEFICIENCY, UN SPECIFIED Diagnosis 04/26/2020 11:57:00 AM [facility] R10.31 Right lower quadrant pain RIGHT LOWER QUADRANT PAIN Di agnosis 04/26/2020 11:57:00 AM [facility] 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 Diagnosis 04/26/2020 11:57:00 AM [facility] 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 Diagnosis 04/26/2020 11 :57:00 AM [facility] R19.7 Diarrhea, unspecified DIARRHEA, UNSPECIFIED Diagnosis 04/26/2020 11:57:00 AM [facility] K21.9 Gastro-esophageal reflux disease without esophagitis GASTRO-ESOPHAGEAL REFLUX DISEASE WITHOUT Diagnosis 04/26/2020 11:57:00 AM [facility] K44.9 Diaphragmatic hernia without obstruction or gangrene DIAPHRAGMATIC HERNIA WITHOUT OBSTRUCTION Diagnosis 04/26/2020 11:57:00 AM [facility] l K22.2 Esophageal obstruction ESOPHAGEAL OBSTRUCTION Diagnosi s 04/26/2020 11:57:00 AM [facility] R13.10 Dysphagia, unspecified DYSPHAGIA, UNSPECIFIED Diagnosi s 04/26/2020 11:57:00 AM [facility] Y92.[address] in unspeci fied non-institutional (private) residence as the place of occurrence of the external cause [facility]ENC Diagnosis 03/22/2020 08:20:00 AM [facility] l X50.1XXA OVEREXERTION FROM PROLONGED STATIC OR AW KWARD POST OVEREXERTION FROM PROLONGED STATIC OR AWKWARD POST Diagnosis 03/22/2020 08:20:00 AM [facility] Y93.89 Activity, other specified ACTIVITY, OTHER SPECIFIED Di agnosis 03/22/2020 08:20:00 AM [facility] Z79.899 Other snf (current) drug therapy O THER RESIDENTIAL (CURRENT) DRUG THERAPY Diagnosis 03/22/2020 08:20:00 AM [facility] l M77.9 Enthesopathy, unspecified ENTHESOPATHY, UNSPECIFIED Di agnosis 03/22/2020 08:20:00 AM [facility] M75.81 Other shoulder lesions, right shoulder O THER SHOULDER LESIONS, RIGHT SHOULDER Diagnosis 03/22/2020 08:20:00 AM [facility] l S49.91XA Unspecified injury of right shoulder and upper arm, initial encounter UNSP INJURY OF RIGHT SHOULDER AND UPPER ARM, INIT ENCNTR Diagnosis 03/22/2020 08:20:00 AM [facility] Surgeries/Procedures Procedure Description Date Indications Data Source(s) ARTHRP KNE CONDYLE&PLATU MEDIAL&LAT CMPRTS 10/14/2020 12:00:00 AM EST MEDENT ([facility]) ARTHRP KNE CONDYLE&PLATU MEDIAL&LAT CMPRTS 10/14/2020 12:00:00 AM EST MEDENT ([facility]) Electrocardiogram Complete 10/05/2020 12:00:00 AM EST [facility] ([facility] Injection (SC)/(Im) 10/05/2020 12:00:00 AM EST MEDENT ([facility] INJECTION 1 TENDON SHEATH/LIGAMENT APONEUROSIS 021 12:00:00 AM EST [facility] ([facility] ) RADIOLOGIC EXAM KNEE COMPLETE 4/MORE VIEWS 08/05/2020 12:00:00 AM EST MED[facility] ([facility]) RADEX ANKLE COMPLETE MINIMUM 3 VIEWS 07/25/2020 12:00: 00 AM EST MED[facility] ([facility] ) APPLICATION SHORT LEG CAST BELOW KNEE-TOE 07/08/2020 1 2:00:00 AM EST MEDENT ([facility]) RADEX ANKLE COMPLETE MINIMUM 3 VIEWS 07/08/2020 12:00: 00 AM EST MEDENT ([facility]) Electrocardiogram Complete 05/16/2020 12:00:00 AM EDT MED[facility] ([facility] INJECTION SINGLE TENDON ORIGIN/INSERTION 03/10/2020 12 :00:00 AM EDT MEDENT ([facility]) ARTHROCENTESIS ASPIR&/INJECTION MAJOR JT/BURSA 020 12:00:00 AM EDT MED[facility] ([facility] ) RADEX FOOT COMPLETE MINIMUM 3 VIEWS 12/07/2019 12:00:0 0 AM EDT MED[facility] ([facility]) RADIOLOGIC EXAM KNEE COMPLETE 4/MORE VIEWS 12/03/2019 12:00:00 AM EDT MED[facility] ([facility]) INJECTION SINGLE TENDON ORIGIN/INSERTION 10/28/2019 12 :00:00 AM EST [facility] ([facility] ) ARTHROCENTESIS ASPIR&/INJECTION MAJOR JT/BURSA 020 12:00:00 AM EST MEDENT ([facility]) Results ID Date Data Source [id number] 10/09/2020 10:30:00 AM EST [facility] Name Value Range Interpretation Code Description Data Noreen rce(s) Supporting Document(s) SARS coronavirus 2 RNA Not Detected [place] This lab was ordered by [facility] and reported by [facility]. ID Date Data Source [id number] 10/03/2020 12:05:00 PM EST MED[facility] ([facility]) Name Value Range Interpretation Code Description Data Noreen rce(s) Supporting Document(s) Erythrocyte sedimentation rate by Westergren method 16 mm/hr 0-30 [facility] ([facility]) ID Date Data Source [id number] 10/03/2020 12:05:00 PM EST [facility] ([facility]) Name Value Range Interpretation Code Description Data Noreen rce(s) Supporting Document(s) White Blood Count 4.6 10 4.0-10.0 [facility] ([facility]) Red Blood Count 4.47 10 4.00-5.40 [facility] ([facility]) Hemoglobin 13.9 g/dL 12.0-15.5 [facility] ([facility]) Hematocrit 42.8 % 36.0-47.0 [facility] ([facility]) Mean Corpuscular HGB Conc 32.5 g/dL 32.0-36.5 [facility] ([facility]) Mean Corpuscular Hemoglobin 31.1 pg 27.0-33.0 [facility] ([facility]) Mean Corpuscular Volume 95.7 fl 80.0-96.0 M EDENT ([facility]) Neutrophils % 64.8 % 36.0-66.0 [facility] ([facility]) Platelet Count, Automated 240 10 150-450 [facility] ([facility] ) Red Cell Distribution Width 11.9 % 11.5-14.5 [facility] ([facility]) Lymph % 24.9 % 24.0-44.0 [facility] ([facility]) Milam % 7.4 % 0.0-5.0 [facility] Baso % 0.7 % 0.0-1.0 [facility] Eos % 2.2 % 0.0-3.0 [facility] Immature Granulocyte % 0.0 % 0-3.0 [facility] ([facility]) Nucleated Red Blood Cell % 0.0 % 0-0 MED ENT ([facility]) Neutrophils # 3.0 10 1.5-8.5 [facility] ([facility] Lymph # 1.2 10 1.5-5.0 [facility] Milam # 0.3 10 0.0-0.8 [facility] ([facility] Eos # 0.1 10 0.0-0.5 [facility] ([facility] Baso # 0.0 10 0.0-0.2 [facility] ID Date Data Source [id number] 10/03/2020 12:05:00 PM EST MED[facility] ([facility]) Name Value Range Interpretation Code Description Data Noreen rce(s) Supporting Document(s) Glucose, Fasting 107 mg/dL 70-100 [facility] ([facility]) Blood Urea Nitrogen 14 mg/dL 7-18 [facility] ([facility] Glomerular Filtration Rate Laboratory test result MED[facility] ([facility]) <content>Units are mL/min/1.73 m2</content>
<content></content>
<content>Chronic Kidney Disease Staging per NKF:</content>
<content></content>
<content>Stage I & II GFR >=60 Normal to Mildly Decreased</content>
<content>Stage III GFR 30- 59 Moderately Decreased</content>
<content>Stage IV GFR 15-29 Severely Decreased</content>
<content>Stage V GFR <15 Very Little GFR Left</content>
<content>ESRD GFR <15 on SOLDERER ASSEMBLY REPAIR</content>
<content></content> Creatinine For GFR 0.64 mg/dL 0.55-1.30 MED[facility] ([facility]) Potassium Serum 4.8 meq/L 3.5-5.1 [facility] ([facility]) Chloride Level 105 meq/L 98-107 [facility] Sodium Level 142 meq/L 136-145 [facility] Anion Gap 5 meq/L 8-16 [facility] ([facility] Carbon Dioxide Level 32 meq/L 21-32 [facility] Calcium Level 9.9 mg/dL 8.8-10.2 [facility]) Alt/SGPT 24 U/L 12-78 [facility] ([facility] Ast/Sgot 18 U/L 7-37 [facility] ([facility] Alkaline Phosphatase 110 U/L 45-117 [facility] ([facility] Bilirubin,Total 0.6 mg/dL 0.2-1.0 [facility] ([facility]) Albumin 3.6 GM/DL 3.2-5.2 [facility] ([facility] Total Protein 6.9 GM/DL 6.4-8.2 [facility] ([facility]) Albumin/Globulin Ratio 1.1 1.2-2.2 [facility] ([facility]) ID Date Data Source [id number] 10/03/2020 12:05:00 PM EST MED[facility] ([facility]) Name Value Range Interpretation Code Description Data Noreen rce(s) Supporting Document(s) Prothrombin Time 12.9 s 12.5-14.3 [facility] ([facility]) Inr 0.95 [facility] ([facility] THERAPUTIC HUMAN INR VALUES INDICATIONS NORMAL RANGES PROPHYLAXIS/TREATMENT OF: VENOUS THROMBOSIS 2.0-3.0 PULMONARY EMBOLISM 2.0-3.0 PREVENTION OF SYSTEMIC EMBOLISM FROM: TISSUE HEART VALVES 2.0-3.0 ACUTE MYOCARDIAL INFARCTION 2.0-3.0 VALVULAR HEART DISEASE 2.0-3.0 ATRIAL FIBRILLATION 2.0-3.0 MECHANICAL VALVES(HIGH RISK) 2.5-3.5 RECURRENT MYOCARDIAL INFARCTION 2.5-3.5 ID Date Data Source [id number] 10/03/2020 12:05:00 PM EST [facility] Name Value Range Interpretation Code Description Data Noreen rce(s) Supporting Document(s) Erythrocyte sedimentation rate by Westergren method 16 mm/hr 0-30 Normal (applies to non-numeric results) [facility] ([facility] ID Date Data Source [id number] 10/03/2020 12:05:00 PM EST MEDENT ([facility] Name Value Range Interpretation Code Description Data Noreen rce(s) Supporting Document(s) White Blood Count 4.6 10 4.0-10.0 Normal (applies to non-numeri c results) MED[facility] ([facility] Red Blood Count 4.47 10 4.00-5.40 Normal (applies to non-numeric results) [facility] ([facility] Hemoglobin 13.9 g/dL 12.0-15.5 Normal (applies to non-numeric resul ts) [facility] ([facility] Mean Corpuscular Volume 95.7 fl 80.0-96.0 Normal ( applies to non-numeric results) [facility] ([facility] ) Mean Corpuscular Hemoglobin 31.1 pg 27.0-33.0 Norm al (applies to non-numeric results) [facility] ([facility] ) Hematocrit 42.8 % 36.0-47.0 Normal (applies to non-numeric resul ts) [facility] ([facility] Red Cell Distribution Width 11.9 % 11.5-14.5 Norm al (applies to non-numeric results) [facility] ([facility] ) Mean Corpuscular HGB Conc 32.5 g/dL 32.0-36.5 Normal (applies to non-numeric results) [facility] ([facility] ) Platelet Count, Automated 240 10 150-450 Normal (applies to non-numeric results) [facility] ([facility] ) Lymph % 24.9 % 24.0-44.0 Normal (applies to non-numeric resul ts) [facility] ([facility] Milam % 7.4 % 0.0-5.0 Above high normal [facility] ([facility] Neutrophils % 64.8 % 36.0-66.0 Normal (applies to non-numeric re sults) MED[facility] ([facility] Baso % 0.7 % 0.0-1.0 Normal (applies to non-numeric resul ts) MED[facility] ([facility] Immature Granulocyte % 0.0 % 0-3.0 Normal (applies to non-n umeric results) [facility] ([facility] Eos % 2.2 % 0.0-3.0 Normal (applies to non-numeric resul ts) [facility] ([facility] Lymph # 1.2 10 1.5-5.0 Below low normal [facility] ( [facility] Nucleated Red Blood Cell % 0.0 % 0-0 Normal (applies to n on-numeric results) [facility] ([facility] Neutrophils # 3.0 10 1.5-8.5 Normal (applies to non-numeric re sults) [facility] ([facility] Eos # 0.1 10 0.0-0.5 Normal (applies to non-numeric resul ts) [facility] ([facility] Baso # 0.0 10 0.0-0.2 Normal (applies to non-numeric resul ts) [facility] ([facility] Milam # 0.3 10 0.0-0.8 Normal (applies to non-numeric resul ts) [facility] ([facility] ID Date Data Source [id number] 10/03/2020 12:05:00 PM EST MEDENT ([facility] Name Value Range Interpretation Code Description Data Noreen rce(s) Supporting Document(s) Glucose, Fasting 107 mg/dL 70-100 Above high normal M EDENT ([facility] Blood Urea Nitrogen 14 mg/dL 7-18 Normal (applies to non-nume mindy results) [facility] Creatinine For GFR 0.64 mg/dL 0.55-1.30 Normal (applies to non -numeric results) [facility] ([facility] Glomerular Filtration Rate Laboratory test result Normal (applies to non- numeric results) [facility] ([facility] ) <content>Units are mL/min/1.73 m2</content>
<content></content>
<content>Chronic Kidney Disease Staging per NKF:</content>
<content></content>
<content>Stage I & II GFR >=60 Normal to Mildly Decreased</content>
<content>Stage III GFR 30- 59 Moderately Decreased</content>
<content>Stage IV GFR 15-29 Severely Decreased</content>
<content>Stage V GFR <15 Very Little GFR Left</content>
<content>ESRD GFR <15 on SOLDERER ASSEMBLY REPAIR</content>
<content></content> Chloride Level 105 meq/L 98-107 Normal (applies to non-numeric r esults) [facility] ([facility] Sodium Level 142 meq/L 136-145 Normal (applies to non-numeric res ults) [facility] ([facility] Potassium Serum 4.8 meq/L 3.5-5.1 Normal (applies to non-numeric results) [facility] ([facility] Anion Gap 5 meq/L 8-16 Below low normal [facility] ( [facility] Calcium Level 9.9 mg/dL 8.8-10.2 Normal (applies to non-numeric re sults) [facility] ([facility] Carbon Dioxide Level 32 meq/L 21-32 Normal (applies to non-num shakila results) [facility] ([facility] Alt/SGPT 24 U/L 12-78 Normal (applies to non-numeric resul ts) [facility] ([facility] Ast/Sgot 18 U/L 7-37 Normal (applies to non-numeric resul ts) [facility] ([facility] Total Protein 6.9 GM/DL 6.4-8.2 Normal (applies to non-numeric re sults) [facility] ([facility] Alkaline Phosphatase 110 U/L 45-117 Normal (applies to non-num shakila results) [facility] ([facility] Bilirubin,Total 0.6 mg/dL 0.2-1.0 Normal (applies to non-numeric results) [facility] ([facility] Albumin 3.6 GM/DL 3.2-5.2 Normal (applies to non-numeric resul ts) [facility] ([facility] Albumin/Globulin Ratio 1.1 1.2-2.2 Below low normal [facility] ([facility] ID Date Data Source [id number] 10/03/2020 12:05:00 PM EST MEDENT ([facility] Name Value Range Interpretation Code Description Data Noreen rce(s) Supporting Document(s) Prothrombin Time 12.9 s 12.5-14.3 Normal (applies to non-numeric results) [facility] ([facility] Inr 0.95 Normal (applies to non-numeric resul ts) [facility] ([facility] THERAPUTIC HUMAN INR VALUES INDICATIONS NORMAL RANGES PROPHYLAXIS/TREATMENT OF: VENOUS THROMBOSIS 2.0-3.0 PULMONARY EMBOLISM 2.0-3.0 PREVENTION OF SYSTEMIC EMBOLISM FROM: TISSUE HEART VALVES 2.0-3.0 ACUTE MYOCARDIAL INFARCTION 2.0-3.0 VALVULAR HEART DISEASE 2.0-3.0 ATRIAL FIBRILLATION 2.0-3.0 MECHANICAL VALVES(HIGH RISK) 2.5-3.5 RECURRENT MYOCARDIAL INFARCTION 2.5-3.5 ID Date Data Source [id number] 09/23/2020 01:27:00 PM EST MED[facility] ([facility] ) Name Value Range Interpretation Code Description Data Noreen rce(s) Supporting Document(s) Erythrocyte sedimentation rate by Westergren method Laboratory test result [facility] ([facility]) ID Date Data Source [id number] 09/23/2020 01:25:00 PM EST MED[facility] ([facility]) Name Value Range Interpretation Code Description Data Noreen rce(s) Supporting Document(s) Chest x-ray Laboratory test result MEDEN T ([facility] ) ID Date Data Source [id number] 09/15/2020 09:26:00 AM EST MED[facility] ([facility] Name Value Range Interpretation Code Description Data Noreen rce(s) Supporting Document(s) Cancer Ag 15-3 [Units/volume] in Serum or Plasma 2.1 U/ML Normal (applies to non-numeric results) [facility]) THE CA 15-3 ASSAY IS PERFORMED ON THE [place] BY CHEMILUMINESCENCE AND SHOULD NOT BE COMPARED INTERCHANGEABLY WITH OTHER METHODS. IT SHOULD NOT BE USED ALONE A SCREENING TEST OR DIAGNOSIS FOR THE PRESENCE OR ABSENCE OF MALIGNANT DISEASE. PREDICTIONS OF DISEASE RECURRENCE SHOULD NOT BE BASED SOLELY ON VALUES OBTAINED FROM SERIAL PATIENT SERUM VALUES. Carcinoembryonic Ag [Mass/volume] in Serum or Plasma 1.1 ng/mL Normal (applies to non-numeric results) [facility] ([facility] THE CEA ASSAY IS PERFORMED ON THE [place] BY CHEMILUMINESCENCE AND SHOULD NOT BE COMPARED INTERCHANGEABLY WITH OTHER METHODS. IT SHOULD NOT BE USED ALONE A SCREENING TEST OR DIAGNOSIS FOR THE PRESENCE OR ABSENCE OF MALIGNANT DISEASE. PREDICTIONS OF DISEASE RECURRENCE SHOULD NOT BE BASED SOLELY ON VALUES OBTAINED FROM SERIAL PATIENT SERUM VALUES. ID Date Data Source [id number] 09/15/2020 09:26:00 AM EST MEDDAN[facility] ([facility] Name Value Range Interpretation Code Description Data Noreen rce(s) Supporting Document(s) Glucose, Fasting 108 mg/dL 70-100 Above high normal M EDENT ([facility] Blood Urea Nitrogen 12 mg/dL 7-18 Normal (applies to non-nume mindy results) [facility] ([facility] Creatinine For GFR 0.66 mg/dL 0.55-1.30 Normal (applies to non -numeric results) [facility] ([facility] Glomerular Filtration Rate Laboratory test result Normal (applies to non- numeric results) [facility] ([facility] ) <content>Units are mL/min/1.73 m2</content>
<content></content>
<content>Chronic Kidney Disease Staging per NKF:</content>
<content></content>
<content>Stage I & II GFR >=60 Normal to Mildly Decreased</content>
<content>Stage III GFR 30- 59 Moderately Decreased</content>
<content>Stage IV GFR 15-29 Severely Decreased</content>
<content>Stage V GFR <15 Very Little GFR Left</content>
<content>ESRD GFR <15 on [employer]PAIR</content>
<content></content> Sodium Level 142 meq/L 136-145 Normal [...] [facility] ([facility] Calcium Level 9.3 mg/dL 8.8-10.2 Normal (applies to non-numeric re sults) [facility] ([facility] Anion Gap 4 meq/L 8-16 Below low normal [facility] ( [facility] Ast/Sgot 18 U/L 7-37 Normal (applies to non-numeric resul ts) [facility] ([facility] Alt/SGPT 26 U/L 12-78 Normal (applies to non-numeric resul ts) [facility] ([facility] Bilirubin,Total 0.5 mg/dL 0.2-1.0 Normal (applies to non-numeric results) [facility] ([facility] Alkaline Phosphatase 123 U/L 45-117 Above high normal [facility] ([facility] Total Protein 6.7 GM/DL 6.4-8.2 Normal (applies to non-numeric re sults) [facility] ([facility] Albumin 3.6 GM/DL 3.2-5.2 Normal (applies to non-numeric resul ts) [facility] ([facility] Albumin/Globulin Ratio 1.2 1.2-2.2 Normal (applies to non-n umeric results) [facility] ([facility] ID Date Data Source [id number] 09/15/2020 09:26:00 AM EST [facility] ([facility] Name Value Range [...] Normal (applies to non-numeric re sults) [facility] ([facility] Platelet Count, Automated 233 10 150-450 Normal (applies to non-numeric results) [facility] ([facility] ) Red Cell Distribution Width 12.0 % 11.5-14.5 Norm al (applies to non-numeric results) [facility] ([facility] ) Milam % 10.4 % 0.0-5.0 Above high normal [facility] ([facility] Eos % 4.3 % 0.0-3.0 Above high normal [facility] ([facility] Lymph % 35.3 % 24.0-44.0 Normal (applies to non-numeric resul ts) [facility] ([facility] Baso % 1.0 % 0.0-1.0 Normal (applies to non-numeric resul ts) [facility] ([facility] Immature Granulocyte % 0.2 % 0-3.0 Normal (applies to non-n umeric results) [facility] ([facility] Nucleated Red Blood Cell % 0.0 % 0-0 Normal (applies to n on-numeric results) [facility] ([facility] Neutrophils # 2.0 10 1.5-8.5 Normal (applies to non-numeric re sults) [facility] ([facility] Lymph # 1.5 10 1.5-5.0 Normal (applies to non-numeric resul ts) [facility] ([facility] Milam # 0.4 10 0.0-0.8 Normal (applies to non-numeric resul ts) [facility] ([facility] Eos # 0.2 10 0.0-0.5 Normal (applies to non-numeric resul ts) [facility] ([facility] Baso # 0.0 10 0.0-0.2 Normal (applies to non-numeric resul ts) [facility] ([facility] ID Date Data Source [id number] 09/14/2020 09:15:00 AM EST [facility] Name Value Range Interpretation Code Description Data Noreen rce(s) Supporting Document(s) EGD [facility] QBEIBq2jJkMUXgAeTISiHjaJPHklOZaqGEZrZ2R9JCloZz0CXZhutsOaOJCwKw1+MJCnGK0gmj2yUCRs gMy 9lJYKcLzrnM9HlVWXjk91FYEAsTTcHJfNjNnMvSUGvKTL3OFT0NKK5LsHkEkklRZ7kGDG7ZJFxBVblZU DvGWLcZfIoSOQzXD9wZXcrFBdmOi3XZB5ki1HgQJCcLUSvTxtTFOjzDXrtGVIsGJObKKKgM188tlAjHn 6EjXPvIQy0FPHyCzC1FALmJgF2PFBnSx3gXrYdb2Xm U6SkSDj3L9xNPojxD5RqBMiqHT8iWKY2TSRnLs7HoNzhNVufXAHCQ7vlJzCcJXAtPGMYQh4+Pj4+DWVu EV7jve05NHDha4KrWIn7V5H9iOMhL0IaM7GbJKRmfXLMq5xxJbYdEIS6DHGrHemtJX2TIAHwyLQyDFGg SOyqZJ6lqeRpwPV0EA5VuHqtADUmTJYBHh8+Pi9QYX CzrkAeAeZyHRXuN15gxWOrfPCyWxtgDOTDKJ1+FJQnDC2ncf31CQCru4HdBSg6T7taehc7qUYgEZD7FQ ZdMvQxFJMeEJ5pDU8LyAQ4aFDpMZ0NoGTlBV9YoXKiFV7DJ7GkEMX8E8IbjVZmprYqN8LsXNCbNCWdh3 FySX7EX2RCBLHwEUZjM1PqbJ5sM2WqK0VqD5Fimyas CNWKXs0AaBQ9yPRrLRJdT5ijdUtccIWtHKeoM2GoqDYNQTOIv87wb87daiQoCC6+f8RkVYCyPLh68ms3 ZVAcX/pvEFBGGmg7FGsoQAOxGtLQeb2uG0iwBrI1GBs3TqiqhHX3W1fUaYDZ3//yatj1cja5lx/eD+/z 6IBOwl0+g3dp5fYm9nXw9OTYGPviRGBTiLVAFZCP28 zpoNx0JEqlyMkpuSuD+QTsXBXFrDZsj1eY7J3Px2WZilRgMjL59+Qh4ept6mgf9uBo3+Lm/FwfYV6ni8 ZHQyfGwCDmfEv+lvP/OC72MYkuzIalktQOTmYTMpOMT+EoT4YRPQLoUftWHF0bXGpNZeEjk6Yst9Q1JG CPDXiFAAS+QgQiISEi/u31+axBFLUCoc2F8DDBG0wH [file] Juan M+r15MQRHFi1B+9wQy87yPRV/Tbu6Zg/cKFv/5fh [file] gGrbSk/LuNPSHQF9WvklWv7++Jean-Claude/JXFC55gF24VIKMH5kcfSulcjSk19z0mMgPb4WRPPMjSzJ/qZK7 [file] kTsXAGNohmOx8ORpNUZNTOz7YO/LR+P0R2CsE7H pbA/JaMG8FG5c3tsKJ7xgiVUzgY/d9BxxYjzBLPBFPWrtaGdjdNEh0AljLjR1UNNIldUtjoo/4bJXl1z lZykzr2vAN7zmtbYchrNSzlduy2LxwU0Oh3qjfscQOuIcgOFOIFqJyuqX/1ybOs6U4E28i2Heopj6QTj /RRtBAI+cfGaDWJDuemgNBpgnEORGylVcactnbQbym [file] Frj7H6w908BJjE4765QCk2eTS8tMknX8e4OwZul1o6 4E49ak2p81aozUbFhBfGr6X9LGQLco19h4XnT6kBh0zsi1r4g9TpwZTVp/6aEOc63k76iPr7tnC+rKH6 mG/Y9/Sjr8nuGh+q++ESpofwQs+NOUpsrTvSKMNcv7Ou1FtJ7Aar/LYB353Czrohtb8VdJXF/DW+9wiZ hjaNhvIVk8rSvp5aS0sZxUmAFY4/ElcllJyoYAUdVT +c+6yktNR5u4ALp/aRhndWW3vNyK8pCc+vZs8eWoDp865h0lvGKKdoZ+B6oMixGwdZw5HTZf54mcX81L KgDsdnnXqdH72j2ZV+lgnZa4GTwHw/R5qOcYhagpdb5eLQHvE6THriKGXA+cX3vBg7QHH6YBgJrZc/Ch ZR3mkRsB/3pGAhSQe55OirueYEWIiBC8OptC1/wPoh 82KvqKuLCdmwX0wJu0lYzbgl9vH2RtTFnw2Uk2mEJoW7vJcnWbfF9WE0qP/9ScVBzNlK37yXAWwIVYpR QZ+oexEN2pQN1wumQW+WtI632SqzdmrtCNv6pdtuqqwdD8a2odll872mY04m06b70jpro8XQtyxdXbZr z/Qz0T44pEXTWcc0w9mnoAzote/vKxsmLFWJMYf3v/ t9qAo1m81M+tfcchD0dVi0CFGrk4ZJHxhxvMgOQnRIdMb+nr55nMADr/BfpNhKXVZQ7srBsvpKtIMezq pkKI9IOnrsmpAGbXMmBeku3qXKlFvufIPABJJoCa+GPCa1m/materials development engineer+qyeyW9d2ileXrOZxcX8dTr1luJLN [file] automation controls expert/dZRGMoEdW98cR2IjFpST6lyz21UxfTR5wWBOTP 7Z6+jv0/sMuObRbKcqWrwe37fmLe+cntmlav8kqS5ZIykf7Z48EP0ciYCQOHZtM7JYj7NlEBIwF6WsMF 58AEPrWdi81rM17cf3A6DTa0wSk0LhZe0jEN3M3lIepZwxCiXTqshuzKBLPeJtEyJORatYyW259JkyiG +6rA6MG9f1KbDfHXtlLSXtYQpCIdmOswT5W7wcmRT+ 5BIwg7ynIDKcXIZxwaCxJG0cJLMsQVLPV84pqHw/4VP21o/R3xBkUMV7okX1hkNAVPbX2uPnKoMRqCtb gZ3uigcF562Wa4ise/IDZIk8YwTkCnq0Sb/mt5H+A4/CaPmzf/0qOKe7gJGyoRfwbX6gK8hGB5ftLvSw 7Jcu12HVbJRR1IpnlAXrYLdROAJwvOOdmjm4anINDH Q15DiNPMLn1v0s+EEaLSBIdMX+qfmwaa2TYz22b7FbhJgVh9+ZIv3h+SfqrEtMLJy3SnagamHTNedTMI 1v8OipeNsWvuJQ8tMX3XbIE/fhiYNKP2tnfEB68yyL2e7k2SaLHxpsTZ+pw0BIBXFqt7Hb5/1XA1jgTw nK6lhAvEKO8JcK6ACqGZrj6a8oTkgtZCUAzuWceJKQ xA+3keggyvyTXArIUnr6fy+tSnlp+s9SjC8d40HJQzKI/iN3uAb0s8Q5+ndxr1DXSj9sUXUrHmy0k07j 9C/fyuK/BEa5lQFcFbVuJirhmOB8CQco90a57PileaErCKQ1R8NTdJNjm42MdXqHb2+Colleen+h7iwC2klF 7s5hDunIkJztY5XUm2333XvJ9YI8m44vE30I591BsY [file] 1oEVtzaVZAgntA3Z9aRvLYjjOtJ/TYPESETTING MACHINE TENDER/azqkN5z8TXb08vgGcxuNFbbEEB3468Qbv0Nz0e/bmO11hqY7 [file] VGk2S+dining room attendant [file] iYmf72OnRq1e8aJlUp/sales and service officer/dc6c84WHlB/lfxfqZOZV [file] land resource specialist/VYLfEeX5iPlNW+iI18SHAwiJIWAjWYGWNZpNfE [file] Cr6mY3VNJJkG91nGAHIvYyIU/iKgcv2tai81tc+process automation engineer c5DmkbqfunNzdO7sv/jFZkkHcY7IxzLh8HbLGeeT1mF9IrjVuTbwgkzIB9T0EENtBEnbmTQjwTXrG+OY gUsmutBnfSiwiOn/iYv9NuwvmmzKvgq4xrHKgTENwQ3oVtv/095S8QZT9/Kso6gk6QHv1ptx+gA+TGQY uIk8fV0g5RT0q+5jt7+9nPg/30B4hBFR4xIjoEkOWt V6XsAcYO9XoXUSyxrO6Zng16B3WO45CognHicV3CswzIbxoRMaHLB3mwZ3oQu2O+PYd7vjomO3A3f4Wh LzAxonl5Q740q3rmYbpbse7lNdZU4ZY/H3ud+Sl6Vc1KtWMfASM2awgCzgeCQl6C9iesqntghYxSGjW1 DhDga/KZnOJ1Nv2Rojvwd34nYmoo/Delia/YlrJEiqQQ [file] FORM TAMPER OPERATOR+dyUUW6Yln15xICIEYGk63Me5eqgBLie99WBsAxW1Pk4BmA1r3RUhrNuOggUjVwE7R40TzskQxggOc [file] wV4g77Wu665jwVK0e9z9rhL+p873i9MWXAbP29jj+m q+n0iHCiA21GGZzTHRGtUabcqp9e8k1r2ixQw5Rs1peVFn7mgajXXEoKpn9knrs3unZd/+Fqd25CyGCs XhfbmeLpiR5YBugcTGYrhUMy2ykxtZNU6FlQRelv87EMxf8ueVw/44/6w/8MSuYvGrsZ2BrLRQ0pNoL+ dwrE1L0y9jEVMcV/mm4ZkEo/b9AC07pn/mqEZAXT4S n6e2jG070WxhvLCctCzGgtGVaF4bBtkUh8vex0/8Ip8f48ZMr52ltQL0f/Q6ekAOfpMOkFfPISVTKaHA /3UrPY30bu3ULTc/jycjEvlOuCssKSdA0IcT3Q7NtwLhn+D6gf3M/xnyyNu0f9jdARSE8Px5j+vpu96o DSqoWRjkQjdTgiN9s7vxtRNhES4xrLxX0KGGxBOUro tSbmP+EkL6BdPp3SxKSY51Zb1eFCL5erVY1aMBkAv6c6Hnp/LuENDsX7ZVkpfoYzvPQiJY3KFI9ep8Tr DPUuBLLhe6AyPMl0P1egcyx6hJMjBU3+d8QlBTFmMKchKxIiQnZjNVGcJpauPMHoMQCvxBnrPR0wNjHD ejlKMCxwmdCzfMCpFM0PZD1vn8DbBIVrOWXrm6AmBW q8I0AvjSCxgkJdSesenNLCFVBrYYInFWOnW2NhMHYpA9mHMAc9LRDfScDhSZGaDJIgEUxAIhZ4F8VjUX v6TFX4CzD8O7A+QEr1XmS6YZX1LcA0BLXpIMOFAcPHZcPUNSWMQwbkTidLBP7iU5Vdr3OkJWQbOJNrHR 3qicRaPGUaFl9RjCowVKD2P2H7aNLyA9yTRSKeIxSd QDA3NMKsZh2wdUXcZO5RFkfsW1TtDYDjBTRPLLLXVii+BJGMBWDyNZBkPpwNJp+DyCPmQJJjhTOYPAAi StwRLc3287CitnZUKVNPE9lCEuLdWMH8pwDyuJ5NSU6ke3MwMD1Oa8CfrpC4zsVhUIg0DgA1HmJXDgNo RU9G ID Date Data Source [id number] 09/09/2020 12:36:00 PM EST [facility] Name Value Range Interpretation Code Description Data Noreen rce(s) Supporting Document(s) SARS coronavirus 2 RNA Not Detected [facility] This lab was ordered by [facility] [place] [facility] and reported by [facility]. ID Date Data Source [id number] 08/12/2020 07:20:00 AM EST [facility] ([facility]) Name Value Range Interpretation Code Description Data Noreen rce(s) Supporting Document(s) White Blood Count 3.7 10 4.0-10.0 Below low normal [facility] Hemoglobin 13.4 g/dL 12.0-15.5 Normal (applies to non-numeric resul ts) [facility] ([facility]) Red Blood Count 4.26 10 4.00-5.40 Normal (applies to non-numeric results) [facility] ([facility]) Mean Corpuscular Hemoglobin 31.5 pg 27.0-33.0 Norm al (applies to non-numeric results) [facility] ([facility]) Mean Corpuscular Volume 97.9 fl 80.0-96.0 Above high normal [facility] ([facility]) Hematocrit 41.7 % 36.0-47.0 Normal (applies to non-numeric resul ts) [facility] ([facility]) Red Cell Distribution Width 12.0 % 11.5-14.5 Norm al (applies to non-numeric results) [facility] ([facility]) Mean Corpuscular HGB Conc 32.1 g/dL 32.0-36.5 Normal (applies to non-numeric results) [facility] ([facility]) Platelet Count, Automated 247 10 150-450 Normal (applies to non-numeric results) [facility] ([facility]) Nucleated Red Blood Cell % 0.0 % 0-0 Normal (applies to n on-numeric results) [facility] ([facility]) ID Date Data Source [id number] 08/12/2020 07:20:00 AM EST MED[facility] ([facility] Name Value Range Interpretation Code Description Data Noreen rce(s) Supporting Document(s) Red Blood Count 4.26 10 4.00-5.40 Normal (applies to non-numeric results) [facility] ([facility] White Blood Count 3.7 10 4.0-10.0 Below low normal M [facility] ([facility] Mean Corpuscular Volume 97.9 fl 80.0-96.0 Above high normal [facility] ([facility] Hemoglobin 13.4 g/dL 12.0-15.5 Normal (applies to non-numeric resul ts) [facility] ([facility] Hematocrit 41.7 % 36.0-47.0 Normal [...] results) [facility] ([facility] Nucleated Red Blood Cell % 0.0 % 0-0 Normal (applies to n on-numeric results) [facility] ([facility] ID Date Data Source [id number] 08/11/2020 09:27:00 AM EST [facility] ([facility] Name Value Range [...] results) [facility] ([facility] Lymph % 33.5 % 24.0-44.0 Normal (applies to non-numeric resul ts) [facility] ([facility] Eos % 4.2 % 0.0-3.0 Above high normal [facility] ([facility] Milam % 9.1 % 0.0-5.0 Above high normal [facility] ([facility] Nucleated Red Blood Cell % 0.0 % 0-0 Normal (applies to n on-numeric results) [facility] ([facility] Baso % 0.8 % 0.0-1.0 Normal (applies to non-numeric resul ts) [facility] ([facility] Immature Granulocyte % 0.3 % 0-3.0 Normal (applies to non-n umeric results) [facility] ([facility] Milam # 0.4 10 0.0-0.8 Normal (applies to [...] Normal (applies to non-numeric resul ts) [facility] ([facility] ID Date Data Source [id number] 08/07/2020 09:00:00 AM EST [facility] Name Value Range Interpretation Code Description Data Noreen rce(s) Supporting Document(s) SARS coronavirus 2 RNA [facility] This lab was ordered by [facility] and reported by [facility]. ID Date Data Source [id number] 07/19/2020 09:30:00 AM EST [facility] Name Value Range Interpretation Code Description Data Noreen rce(s) Supporting Document(s) Follow Up [facility] FOBJDd4fXaVXNoVcUJOmLtyNQXqaZSiiMLPfG5I7WGslOi5NFGawqmTqVMIbMp2+DHGlIG8rlo4kJZFm gMy [file] 2N9bz+Maria Ines+fo5fc82yGrE7BDMLVlQIbFNSxFIs25Z8 [file] jF1gLdUrJwO/sales and service officer/4d4dlsdJu7xW8fH/GsJKDCf16lgZ8qJt1FKpC6Evlc7bI3I5RtnEJ+QP/KqljuSxn [file] k61kxLrgXPHQGKiNZiZ9d6dS76sfAar2gSaWZmJDkV/zOTZH8XD79q5dQdRu5M/Sz5ASDsAYM4H3+devulcanizer tender [file] retail merchandiser+lUuY [file] j+ne103gBIjV9WfHaMa9nncOgs+ho3FZAsUHDm/patient care representative+0/1/MoBKflHj1s6JRrbqoN7vuhqXX85o9+PPo fctqHweS2+1ALc12EBqfJ09KUQc1ileK2k6q5TIya2 lILU77XImsyQxq79YX9DFdYTPMXWPck20idRI9sLXDr4Ki/W5CPN3zQLLptmctHY1tIs2yxFODt54kk7 1NrzoJPX9c5udQ5V7cK5lw+qel/FxudYQP7QXDLP8lXJW9W0CDMMVjfSjYp23CPoxN/n0FSW+rov7R38 QHZqE4RkXnH0/Mn+4p437I3JwFNEJauGJ8dBLzH7pI b3c4YXLIRBadbExKcwX8PPtyHCsyeZG7rQirzbgvcS99wwvjcJHKF1Qbp+j5Q/XrJWn2uYLHJNS1+4Zw J8GLIaldAp8iIMfRLEMYhnX8BaO2ed475Zn1HG3y6/MGSgYcnBkvAcmDSIOcIJFR40gHPbUTZJiwnl7E H8qJU6keX0/xhqcUTfNbt8cPnv+AuhggnqKdPae86m UIpHf9Fcnmq/W2NfwWR+xB828Go3kPUpDB999JR5YKB4pdN+2zWfXIElL1FpooDn/Sp6pUKBdBymin3P z4u/X9SupP3UaNPAhF950JD0GJwpb/ZTwTcQu+tid1zd65pUtGKm3qtaH0x7OtzoHZGQvYkvi09XklSf 7cVuSwcOfcKfJyRFn03Wa6Ef7BQQ9rulTpn/n9PKo8 JNC5FBFheMBRWfXPjGS4vZ+RYsp0cupz9ovBtU9RxqCWaYh5JoQqz+/M7KdbXDKhTvN6F7j0ffkS7L+U hhMEDlqDpl+cyYxM+burdick+A2NyVX8gRRFgoSSX6KQpL8UIr0u+2eAgHnxqf4E8NCjx0muZkNtKaONhSjuf [file] tfYDP+SMDKJOHvYbKj/AVQSu/Cargo Router/VjBijbEa+0YKpJ [file] K593ljN5PkcY/1Eb3v+mNm3/corsets salesperson+/ho36jKO/5OJG7 [file] sales and service officer+4dnqsQ6ODS5xE4Cs3Tohc5cAa1JYD+WTRYgVv47 [file] 8+FORM TAMPER OPERATOR/Sv7AsdiYMYUa6/Yvfwpt+KX9bx0/2s8tCSW1nGkNDzxOKMne7JnLJUOGg2+UQ+Uzns83oMZCY/7 [file] b9YjhYkn2xebdur0Cw9nihynGhBrkne6CF/yzfxusS q3a4xqmfpszPD2ybcLPIQQryxFd76hwPAYW/MUoFII3g8GWcWzKU5TLn43urp3P94mVHr1/lLpnEBNJa jOxSdxwEoUWI4KpVhn3J6swvmjOJDFmwTLF8DBNXqY1w8FeEtoyWLsdzUJvu/QZwB5963YvXjaum3rpy Ny5cepOXHx8Vjb/clXCh9UzLE8rjOpAoKYxq2QIqM5 /nxWxDfokleOuXqL/8Rd5+cUHQyFgxbYBDpqVXM9sAAEFWhvvH+ZfE63KbEZuxvzMr1Wg/tJTrxb/LOP x4cQ2DKCKKkfFjgv9CXVZFi7LqFqfTKovN1LXgNltDA2NhpuXhf26s1tSoUPJJ8MmdMrksy6It5+UhmT fG9WTw5hiq827go+5ynq8h82wwUcBMrI62b56FwFzh bag shaker+8NTpHgYf/8OJd0gpjOMB/7801J3cm88hb7N4qazX3kthhiT6gyv52gCABz8+swwhf2LrQgwsHD/m [file] [facility]+mWi88/kBJ1jN0ePr5pw9cg2Gd5qb+jv9VdOQpGce1Z8AL2iqRE6oS/FytB6lR8fmG7Tjwx6JFj [file] sales and service officer+wMwii8XlvLzU9fu/NaDW7wLUV+4SIAWEhrUfwIn [file] milling wheel operator [file] DTVJxYL6USnnfK2HHlNIOVefDNpFMIx6ydG/Shay/r/W1f8D/ed2XWKvkb9M5uW+MwjGdOFsEFbQoWL+C8 vXBtcnWo1y0Z94fpzy4KdXGAbsz1zxawpbR2rqClRDM0yvnzfXj4ng5GD1lPdkGf3bQdU0cMyVFkLpjS 6je3vTf2ZAyklVfILa2MONDqi8rvfnogGS4lOxsOQm /kxcrswVqT6+KfscZkKzvdl9ceTNDoPl5Iz4jca9XMK32a1CNojqgda9iW6B4L7CyWT/g+eFd+oz8ZhE MhLHnZVQsE4wZc/J9naMx1G7mzeOfwU0aFaEDLmwzSadJTDrAHN0WTTtlefAFFvzzNTv2wNGJGt1Bs72 46sGJeeF4DJyLp3xrRSi3ibXKyDW8Ni0JmIcYVp4J5 kT+rry5+XOmwxjrcyy8jt3EuzNJaz9t2yx3tr9xQMCKiaxs6kFefIEeCv7BNhzb4CFyo/UPQN+Ctlmc2 iohDoF20uZhkA3KapjQ+6zm8I90DSOmSyKSbhyrRigAOKl+Gn8VqxcTdDIJ/fTW1DwjsD2nM2/r1PdCv WUdkm6d6fyTHa2pGXIS6cPwIkeVrLGH8mMQQmWzOMV C/cgIFxUtao204G8wOT5jBc1BUu5MG0GaXl6SQtiaUjSZTuNKOGC5trp/QU8B9Vu6Q0TMebuTYR0dmje Q9lGJEnveLWrauCRvi922jEpzCNN+YfL8/Tire Care Manager/5HmlWxztPn1H+fZUmheeHpg5NU5xXFUFqCgiLXFNGX G0pZxak+SSGSunimSXapss3MUTYzEfct/HC7vPR9RC Qe1DSqGrgM0QPp+WCamWulE6cJfoznji9QtM//P0YFRlue7DDH2vuncNANpAzdp4WC9o1erBDRo+aUuW LMmedgKL6IIeuSXnh3f45dvHIzz1qkZO/tifew/3B2sUDMzLIw6SggRB3ngJfFJzM3P3h82dnPD38gaO UnPTMv9QFi38Ab6PCbrdLX0VBLS2WV0KJY4yfAJN95 5peajzTG7B0WSygcTIEbFvzJMnaIouQ3WE0p/jHy3C3CW9FqKFlNc0Ti2/+88Zpb2zepDrfYQ1CiLbg9 ZuTkc7JLAtx0MvcCk+Cargo Router+fK4p88ioslYnj70Bb3V1lkZmJw+e9XoOAuDAIo36MtmF5kLOIURt1rC2La0 [file] P0N3AfQHZ5r5rMi4QuTFyIV8TABhXBVpm7MUgGlevGtNdeSMpP+José/u57GA2pac6l9fV9MX3vw8V2UU [file] zNp9TEI+c1Jg+7lEAa8R82+/4ahadvo0EN34ITmanRV+sKfnazKeD+wtJfTJH246exlPNWozILjFf/Oanh MB1ufc8+zQVjMJUU9DISGCHqzjlpYYF9IY1j43csXX Ndyt8HotY5r+geGoYmGtrF4zO1tkbU6o8sEJT7b/JL4quTQvDZTEPdQkMOeiK+djiTjrsNP+V2nm1WcD RH16uftg3Q43+b9OcV86Jwof+gZgWWkGH3lzuvN7VvcVtbHiH817E7JywQplSGPe3frlbrESUybiiGD9 o7XzIu45tX1iONTc4eogxMIhNGj/uUmYOP94eY+SXI 3RtG3WyyWAfpII7b9yk3J28pb1MtlqX5D385BsELDoTbIhiFXf+q/5v59WCLzdI3YXAM1NttLoIKpx/e AcXZuIvJL+JNUI+f/OeV05D+wBOgoDPqrM/Dhj2lh8Hk5oEbvQcrdlYkUtVZa1E6Zal1xw53IHdzxv75 HaZzT28Z+5kuR/3VJQUBcwKq7KyeMgTu+5RoyO/inside sales representative [file] Yt4nQ5pb9zXRZQvqDkmP+I16Hz1Ood7U/J1/WUj/wall taper helper [file] W8I0Zivd4/cJu06gzoC5VFhievfS81xtMopppVB6VvWybah3szNWRf3kFMYZ8k/cash management associate/uq7fgzHVmlnbm [file] electronic game developer+6jRvYorp4qFvmfzgUxiUKJsQ82rf9Nrsx0YJ7m [file] University Administrator/BPBsrQu0pHWyFyai1BAT4Z76VYFEUmjtTG6Pkz0GZLxnU3DlT3J3NSrRN0LqjuA5Okv2Nx8g7xSA [file] VlxoiNxVtP2qMXZI0aeFWaqaeePY1YGDkG7NDO+Jorge Luis [file] twD1fLnUswEtgNnj2dD7xYnQpZ41l/w/costume rental clerk/Tc9vt7 [file] sales and service officer+mLg76MpTxOY1FI9ogqOGqtsFG8yIcn1KEBpvBq1HzgddRYMV8i4nXkQ7f4tjYNq/Rtfvvs5xEXTzc [file] 3de/gshB++89YKarKKLOYZWQ6G8Y1aZxvBMLq+34+Cl0B/+[employer] LIMOUSINE/NF0xLKmkoKqK6S4nylHyKhekYzA3Mm [file] PRODUCT TESTER+Wgf4xaW7OOCZTdLK+4ie/V89Dj0mRZc0pyxZYD99y1+gMD+/yCQdZGmU/SahoCmqmsOf9fUvtfJG [file] 75F9JY6aIpS4LTfWHdnDXOWjISWXr00h/caustic liquor maker+xex8f [file] yiMnKIqvBmChNnM7NZpkLRXFSy== ID Date Data Source URINE CULTURE 07/15/2020 12:00:00 AM EST eCW1 ([facility]) Name Value Range Interpretation Code Description Data Noreen rce(s) Supporting Document(s) URINE CULTURE eCW1 (Formerly [facility]) ID Date Data Source UA URINALYSIS 07/15/2020 12:00:00 AM EST eCW1 ([facility]) Name Value Range Interpretation Code Description Data Noreen rce(s) Supporting Document(s) UA URINALYSIS eCW1 (Formerly [facility]) ID Date Data Source [id number] 07/13/2020 11:24:00 AM EST [facility] ([facility] Name Value Range [...] 98.2 fl 80.0-96.0 Above high normal [facility] ([facility] Red Cell Distribution Width 11.9 % 11.5-14.5 Norm al (applies to non-numeric results) [facility] ([facility] ) Mean Corpuscular HGB Conc 31.7 g/dL 32.0-36.5 Below low normal [facility] ([facility] Platelet Count, Automated 242 10 150-450 Normal (applies to non-numeric results) [facility] ([facility] ) Neutrophils % 58.2 % 36.0-66.0 Normal (applies to non-numeric re sults) [facility] ([facility] Lymph % 32.2 % 24.0-44.0 Normal (applies to non-numeric resul ts) [facility] ([facility] Milam % 7.1 % 0.0-5.0 Above high normal [...] Normal (applies to non-numeric re sults) [facility] ([facility] Lymph # 1.8 10 1.5-5.0 Normal (applies to non-numeric resul ts) [facility] ([facility] Milam # 0.4 10 0.0-0.8 Normal (applies to non-numeric resul ts) [facility] ([facility] Baso # 0.0 10 0.0-0.2 Normal (applies to non-numeric resul ts) [facility] ([facility] Eos # 0.1 10 0.0-0.5 Normal (applies to non-numeric resul ts) [facility] ([facility] ID Date Data Source [id number] 07/13/2020 11:24:00 AM EST [facility] Name Value Range Interpretation Code Description Data Noreen rce(s) Supporting Document(s) Cancer Ag 15-3 [Units/volume] in Serum or Plasma 5.6 U/ML Normal (applies to non-numeric results) [facility] ([facility]) THE CA 15-3 ASSAY IS PERFORMED ON THE [place] BY CHEMILUMINESCENCE AND SHOULD NOT BE COMPARED INTERCHANGEABLY WITH OTHER METHODS. IT SHOULD NOT BE USED ALONE A SCREENING TEST OR DIAGNOSIS FOR THE PRESENCE OR ABSENCE OF MALIGNANT DISEASE. PREDICTIONS OF DISEASE RECURRENCE SHOULD NOT BE BASED SOLELY ON VALUES OBTAINED FROM SERIAL PATIENT SERUM VALUES. Carcinoembryonic Ag [Mass/volume] in Serum or Plasma 1.1 ng/mL Normal (applies to non-numeric results) [facility] THE CEA ASSAY IS PERFORMED ON THE [place] BY CHEMILUMINESCENCE AND SHOULD NOT BE COMPARED INTERCHANGEABLY WITH OTHER METHODS. IT SHOULD NOT BE USED ALONE A SCREENING TEST OR DIAGNOSIS FOR THE PRESENCE OR ABSENCE OF MALIGNANT DISEASE. PREDICTIONS OF DISEASE RECURRENCE SHOULD NOT BE BASED SOLELY ON VALUES OBTAINED FROM SERIAL PATIENT SERUM VALUES. ID Date Data Source [id number] 07/13/2020 11:24:00 AM EST [facility] Name Value Range Interpretation Code Description Data Noreen rce(s) Supporting Document(s) Glucose, Fasting 99 mg/dL 70-100 Normal (applies to non-numeric results) [facility] ( [facility] Blood Urea Nitrogen 13 mg/dL 7-18 Normal (applies to non-nume mindy results) [facility] ([facility] Creatinine For GFR 0.65 mg/dL 0.55-1.30 Normal (applies to non -numeric results) [facility] ( [facility] Glomerular Filtration Rate Laboratory test result Normal (applies to non- numeric results) [facility] ([facility] ) <content>Units are mL/min/1.73 m2</content>
<content></content>
<content>Chronic Kidney Disease Staging per NKF:</content>
<content></content>
<content>Stage I & II GFR >=60 Normal to Mildly Decreased</content>
<content>Stage III GFR 30- 59 Moderately Decreased</content>
<content>Stage IV GFR 15-29 Severely Decreased</content>
<content>Stage V GFR <15 Very Little GFR Left</content>
<content>ESRD GFR <15 on [employer] REPAIR</content>
<content></content> Sodium Level 142 meq/L 136-145 Normal (applies to non-numeric res ults) [facility] ( [facility] Potassium Serum 4.1 meq/L 3.5-5.1 Normal (applies to non-numeric results) [facility] ([facility] Chloride Level 106 meq/L 98-107 Normal (applies to non-numeric r esults) [facility] ([facility] Carbon Dioxide Level 31 meq/L 21-32 Normal (applies to non-num shakila results) [facility] ([facility] Calcium Level 9.4 mg/dL 8.8-10.2 Normal (applies to non-numeric re sults) [facility] ([facility] Anion Gap 5 meq/L 8-16 Below low normal [facility] ( [facility] Alkaline Phosphatase 100 U/L 45-117 Normal (applies to non-num shakila results) [facility] ([facility] Alt/SGPT 18 U/L 12-78 Normal (applies to non-numeric resul ts) [facility] ([facility] Ast/Sgot 15 U/L 7-37 Normal (applies to non-numeric resul ts) [facility] ([facility] Total Protein 6.9 GM/DL 6.4-8.2 Normal (applies to non-numeric re sults) [facility] ([facility] Bilirubin,Total 0.7 mg/dL 0.2-1.0 Normal (applies to non-numeric results) [facility] ([facility] Albumin 3.8 GM/DL 3.2-5.2 Normal (applies to non-numeric resul ts) [facility] ([facility] Albumin/Globulin Ratio 1.2 1.2-2.2 Normal (applies to non-n umeric results) [facility] ([facility] ID Date Data Source DIAGNOSTIC UNILATERAL MAMMO 06/03/2020 10:45:05 AM EDT eCW1 (Formerly [facility]) Name Value Range Interpretation Code Description Data Noreen rce(s) Supporting Document(s) DIAGNOSTIC UNILATERAL MAMMO eC W1 (Formerly [facility]) ID Date Data Source [id number] 05/24/2020 01:20:00 PM EDT [facility] ([facility], ) Name Value Range Interpretation Code Description Data Noreen rce(s) Supporting Document(s) Surgical pathology study Laboratory test result [facility] ([facility], ) <content>FINAL DIAGNOSIS</content>
< content></content>
<content>A-Right breast, [...] tubular and</content>
<content>cribriform features.</content>
<content> 05/30/2020 - 899</content>
<content></content>
<content>CLINICAL DIAGNOSIS</content>
<content></content>
<content>Right breast cancer</content>
<content>05/25/2020 - 1455</content>
<content></content>
<content>GROSS DIAGNOSIS</content>
<content></content>
<content>A - Received [...] cm. The specimen is grossly</content>
<content> unremarkable. Dye Machine Tender section is submitted in one.</content>
<content>-OA</content>
<content>05/25/2020 - 1456</content>
<content></content>
<content>Signed OLMAN ZAVALA MD 05/30/2020 0901</content>
<content></content> ID Date Data Source [id number] 05/24/2020 07:22:00 AM EDT [facility] ([facility]) Name Value Range Interpretation Code Description Data Noreen rce(s) Supporting Document(s) Blood group antibody screen [Presence] in Serum or Valdemar sma Laboratory test result Normal (applies to non-numeric results) [facility] ([facility]) Blood Type Laboratory test result Normal (applies to non-n umeric results) [facility] ([facility] ) ID Date Data Source [id number] 05/24/2020 07:22:00 AM EDT [facility] ([facility] Name Value Range Interpretation Code Description Data Noreen rce(s) Supporting Document(s) Blood Type Laboratory test result Normal (applies to non-n umeric results) [facility] ([facility] AB Screen (Indirect [place])Vis Laboratory test result Normal (applies to non- numeric results) [facility] ([facility] ) ID Date Data Source [id number] 05/19/2020 11:00:00 AM EDT [facility] Name Value Range Interpretation Code Description Data Noreen rce(s) Supporting Document(s) SARS coronavirus 2 RNA [facility] This lab was ordered by [facility] and reported by [facility]. ID Date Data Source [id number] 05/16/2020 12:22:00 PM EDT [facility] ([facility] Name Value Range Interpretation Code Description Data Noreen rce(s) Supporting Document(s) BUN 13 mg/dL 8-23 [facility] ([facility] NORMAL RANGES Age WBC RBC [...] HCT IS 5% LESS SOURCE FOR DATA: [employer] 1800 OPERATION MANUAL( AUTOMATED BLOOD COUNTS AND [...] >32 mL/min Normal Glu 103 mg/dL 70-110 [facility] NORMAL RANGES Age WBC RBC [...] HCT IS 5% LESS SOURCE FOR DATA: [employer] 1800 OPERATION MANUAL( AUTOMATED BLOOD COUNTS AND [...] above >32 mL/min Normal BUN/Creatinine Ratio 21.9 CALC [facility] ([facility] NORMAL RANGES Age WBC [...] HCT IS 5% LESS SOURCE FOR DATA: [employer] 1800 OPERATION MANUAL( AUTOMATED BLOOD COUNTS AND [...] >32 mL/min Normal Creat 0.6 mg/dL 0.5-1.0 [facility] ([facility] NORMAL [...] HCT IS 5% LESS SOURCE FOR DATA: [employer] 1800 OPERATION MANUAL( AUTOMATED BLOOD COUNTS AND [...] >32 mL/min Normal Na 140 mmol/L 136-145 [facility] ([facility] NORMAL RANGES Age [...] HCT IS 5% LESS SOURCE FOR DATA: [employer] 1800 OPERATION MANUAL( AUTOMATED BLOOD COUNTS AND [...] >32 mL/min Normal K 3.9 mmol/L 3.5-5.1 [facility] ([facility] NORMAL RANGES Age WBC [...] HCT IS 5% LESS SOURCE FOR DATA: [employer] 1800 OPERATION MANUAL( AUTOMATED BLOOD COUNTS AND [...] >32 mL/min Normal CL 103.4 mmol/L 98.0-107.0 [facility] ([facility] NORMAL RANGES Age WBC [...] HCT IS 5% LESS SOURCE FOR DATA: [employer] 1800 OPERATION MANUAL( AUTOMATED BLOOD COUNTS AND [...] >32 mL/min Normal Co2 28.0 mmol/L 22.0-29.0 [facility] ([facility] NORMAL RANGES Age WBC RBC HGB [...] HCT IS 5% LESS SOURCE FOR DATA: [employer] 1800 OPERATION MANUAL( AUTOMATED BLOOD COUNTS AND [...] >32 mL/min Normal CA 8.9 mg/dL 8.6-10.2 [facility] NORMAL RANGES Age [...] HCT IS 5% LESS SOURCE FOR DATA: [employer] 1800 OPERATION MANUAL( AUTOMATED BLOOD COUNTS AND [...] TP 5.9 g/dL 6.6-8.7 Below low normal [facility] ( [facility] NORMAL RANGES Age WBC [...] HCT IS 5% LESS SOURCE FOR DATA: [employer] 1800 OPERATION MANUAL( AUTOMATED BLOOD COUNTS AND [...] >32 mL/min Normal Alb 4.0 g/dL 3.4-4.8 [facility] ([facility] NORMAL RANGES Age [...] HCT IS 5% LESS SOURCE FOR DATA: [employer] 1800 OPERATION MANUAL( AUTOMATED BLOOD COUNTS AND [...] above >32 mL/min Normal Globulin 1.9 CALC [facility] ([facility] [...] HCT IS 5% LESS SOURCE FOR DATA: [employer] 1800 OPERATION MANUAL( AUTOMATED BLOOD COUNTS AND [...] >32 mL/min Normal A/G Ratio 2.1 CALC [facility] ([facility] NORMAL [...] HCT IS 5% LESS SOURCE FOR DATA: [employer] 1800 OPERATION MANUAL( AUTOMATED BLOOD COUNTS AND [...] mL/min Normal Alt (SGPT) 10 U/L 0-41 [facility] ([facility] NORMAL RANGES Age [...] HCT IS 5% LESS SOURCE FOR DATA: [employer] 1800 OPERATION MANUAL( AUTOMATED BLOOD COUNTS AND [...] >32 mL/min Normal Alp 107.9 U/L 35-129 [facility] ([facility] NORMAL RANGES Age [...] HCT IS 5% LESS SOURCE FOR DATA: [employer] 1800 OPERATION MANUAL( AUTOMATED BLOOD COUNTS AND [...] mL/min Normal Osmolality-Calculated 280.5 CALC MED [facility] ([facility] NORMAL RANGES Age WBC [...] HCT IS 5% LESS SOURCE FOR DATA: [employer] 1800 OPERATION MANUAL( AUTOMATED BLOOD COUNTS AND [...] mL/min Normal Ast (Sgot) 18 U/L 0-40 [facility] ([facility] NORMAL RANGES Age WBC RBC HGB [...] HCT IS 5% LESS SOURCE FOR DATA: [employer] 1800 OPERATION MANUAL( AUTOMATED BLOOD COUNTS AND [...] >32 mL/min Normal Tbili 0.42 mg/dL 0.0-1.2 [facility] ([facility] NORMAL RANGES Age [...] >32 mL/min Normal Anion Gap 13 mmol/L [facility] NORMAL RANGES Age [...] HCT IS 5% LESS SOURCE FOR DATA: [employer] 1800 OPERATION MANUAL( AUTOMATED BLOOD COUNTS AND [...] mL/min Normal eGFR 110 # [facility] ( [facility] NORMAL RANGES Age WBC [...] HCT IS 5% LESS SOURCE FOR DATA: [employer] 1800 OPERATION MANUAL( AUTOMATED BLOOD COUNTS AND [...] and above >32 mL/min Normal eGFR Non-Afr. Emir[place] 95 # [facility] ([facility] [...] HCT IS 5% LESS SOURCE FOR DATA: [employer] 1800 OPERATION MANUAL( AUTOMATED BLOOD COUNTS AND [...] >32 mL/min Normal ID Date Data Source [id number] 05/16/2020 12:22:00 PM EDT [facility] ([facility] Name Value Range Interpretation Code Description Data Noreen rce(s) Supporting Document(s) WBC 4.8 10E3/uL 4.1-10.9 [facility] ([facility] NORMAL RANGES Age [...] HCT IS 5% LESS SOURCE FOR DATA: [employer] 1800 OPERATION MANUAL( AUTOMATED BLOOD COUNTS AND [...] mL/min Normal RBC 4.24 10E6/uL 4.20-6.30 [facility] ([facility] NORMAL RANGES Age WBC RBC [...] HCT IS 5% LESS SOURCE FOR DATA: [employer] 1800 OPERATION MANUAL( AUTOMATED BLOOD COUNTS AND [...] >32 mL/min Normal HGB 13.6 g/dL 12.0-18.0 [facility] ([facility] [...] HCT IS 5% LESS SOURCE FOR DATA: [employer] 1800 OPERATION MANUAL( AUTOMATED BLOOD COUNTS AND [...] >32 mL/min Normal HCT 40.6 % 37.0-51.0 [facility] ([facility] NORMAL RANGES Age [...] HCT IS 5% LESS SOURCE FOR DATA: [employer] 1800 OPERATION MANUAL( AUTOMATED BLOOD COUNTS AND [...] MCH 32.1 pg 26.0-32.0 Above high normal [facility] ([facility] NORMAL RANGES Age WBC [...] HCT IS 5% LESS SOURCE FOR DATA: [employer] 1800 OPERATION MANUAL( AUTOMATED BLOOD COUNTS AND [...] >32 mL/min Normal MCV 95.8 fL 80.0-97.0 [facility] ([facility] NORMAL RANGES Age WBC RBC HGB HCT MCV PLT Adult M 4.1-10.9 4.20-6.30 12.0-18.0 37.0-51.0 80- 140-440 Adult F 4.1-10.9 4.04-5.48 12.0-18.0 37.0-51.0 80- 140-440 0 -1 Yr 5.0-20.0 3.9-5.9 15-18 [...] >32 mL/min Normal MCHC 33.5 g/dL 31.0-36.0 [facility] NORMAL RANGES Age [...] HCT IS 5% LESS SOURCE FOR DATA: [employer] 1800 OPERATION MANUAL( AUTOMATED BLOOD COUNTS AND [...] >32 mL/min Normal PLT 248 10E3/uL 140-440 [facility] ([facility] NORMAL RANGES Age [...] HCT IS 5% LESS SOURCE FOR DATA: [employer] 1800 OPERATION MANUAL( AUTOMATED BLOOD COUNTS AND [...] >32 mL/min Normal RDW-CV 11.7 % 11.5-14.5 [facility] NORMAL RANGES Age [...] HCT IS 5% LESS SOURCE FOR DATA: [employer] 1800 OPERATION MANUAL( AUTOMATED BLOOD COUNTS AND [...] >32 mL/min Normal Lym% 30.2 % 10.0-58.5 [facility] ([facility] [...] HCT IS 5% LESS SOURCE FOR DATA: [employer] 1800 OPERATION MANUAL( AUTOMATED BLOOD COUNTS AND [...] >32 mL/min Normal Neut% 61.4 % 37.0-92.0 [facility] ([facility] NORMAL [...] HCT IS 5% LESS SOURCE FOR DATA: [employer] 1800 OPERATION MANUAL( AUTOMATED BLOOD COUNTS AND [...] >32 mL/min Normal Lym# 1.4 10E3/uL 0.6-4.1 [facility] ([facility] NORMAL RANGES Age [...] HCT IS 5% LESS SOURCE FOR DATA: [employer] 1800 OPERATION MANUAL( AUTOMATED BLOOD COUNTS AND [...] >32 mL/min Normal MXD% 8.4 % 0.1-24.0 [facility] ([facility] NORMAL RANGES Age [...] HCT IS 5% LESS SOURCE FOR DATA: [employer] 1800 OPERATION MANUAL( AUTOMATED BLOOD COUNTS AND [...] >32 mL/min Normal Neut# 3.0 % 2.0-7.8 [facility] ([facility] NORMAL RANGES Age WBC RBC HGB [...] HCT IS 5% LESS SOURCE FOR DATA: [employer] 1800 OPERATION MANUAL( AUTOMATED BLOOD COUNTS AND [...] >32 mL/min Normal MXD# 0.4 10E3/uL 0.0-1.8 [facility] ([facility] NORMAL RANGES Age [...] HCT IS 5% LESS SOURCE FOR DATA: [employer] 1800 OPERATION MANUAL( AUTOMATED BLOOD COUNTS [...] >32 mL/min Normal MPV 9.6 fL 9.0-13.0 [facility] NORMAL RANGES Age [...] IS 5% LESS SOURCE FOR DATA: NATALYA [employer] 1800 OPERATION MANUAL( AUTOMATED BLOOD COUNTS AND [...] >32 mL/min Normal ID Date Data Source [id number] 05/12/2020 07:30:00 AM EDT [facility] Name Value Range Interpretation Code Description Data Noreen rce(s) Supporting Document(s) EGD-dil [facility] KTAYKx2cYcOCCgEeYUQfQclTOOgnKHfnEOChC4M8SInnBz0ILYiaxzLcSSNrLl5+DQVsMX8bvy1oLKWv gMy 4wTZIqGwebB9DhDRFhy74TLSFyFRuZRkRrFsKyTODePCy1PQLsOYT5VhSiAtjnLO5dETW4QZMoSHheEZ MqYXcnVPB2ZLCqMq4hOQshVEqeNf1UNI6gn1InPJBoZRZzXcbAAAebBJvuWXIlAKSfZIQbG816juZyUh 8AsCBtGRc7QJMcTqW0TXLdZoD5MELoUn8xNbBfy6Cg L0NhPGb0O0jUPjzhZ2KcNRogJM8tICQ3OXZtNg7VzAifDWlgENPEY8chDxJbHZJaXUXGKh5+Pj4+DWVu ZG2uyn05UKOvf8UjWRg4W9F3gHBbF6AsE1MbWGLpsAYKr6xkZnOnRNV9QWKkOtjuAG8NCESkuJHeRENt KKlmFG4gfqNtgFF3UV3WaZwtQNIbNCZVGu1+Pi9QYX OaaeXtAmGbLNJwL62mhNFfvGTsXehlEGVNQG6+RDMiHG4zcx75ACXoh4ChMRf8B9vyfec0wMWyKIPmVN PoQiCvNVBsFV6jJA2RtRM2cZGrFJ9VqHItNT3InOChAU4AN1DmLQG8E1KygAHotzKmE2ZrJKZjTPFdf3 VpGM3GD2VANHUrEWLlY4OgrG9gK9RzY1NdK7Oeklvj GFLGFp4WuAT4jWTkMDAfW3mjmLpioJVmBMoaK1VfnAUVEZLSd12pz59kwxUoJH2+s6AmSKZlIYk48fz6 ZVAcX/raREJHGsx2WTctPMQoSuVRgm4lZ3eeBhG9IOf6TyzrxSP5Q5mTzCCR2//idsi3shf7wy/eD+/z 4ZGMwq7+p3jz7gEf9eWk3KGFOCqpEOOBeIODUCAS51 ouaLd1RGbipUtjvVqC+YUuCTEEiFMap4vQ2K1Lc5LLqjHyBeM38+To9xim9uqz8mCj3+Lm/DwuYQ4tl1 ZHQyfGwCDmfEv+lvP/AD97XBhtjSzzltIJFoHBIdPVC+EsR0GSJLFkYebYBN9kTXbWArShz9Nuv9V2DN CPDXiFAAS+QgQiISEi/u31+gaMZWKPdo1Y9EFBA9yH [file] L3Y8OI5Tf5K+TOyuMsYbdZjydvGm1abuTlioa6m2JQQX4XmTk6HK3FUBLWvDBvzdQouySOoP2IF0++CHAUFF[employer] LIMOUSINE [file] +5MwlIV05mhq5JDgUiGB43TEpARuN2rylWmXX8yPafKuV8iYVOaGfLYKAPdm+Sadiq/gD9lB8QwvzLL+FORM TAMPER OPERATOR J6Xbcks9vYCQP7OXCivhOpCZdYBf61aG4s0xFu18mG fTcOKvswtxwUqsp19MjGxiCL3hKqnMQp0XcP+IqVzRLL5ykN8mMIGR88msJ39g0DQHw1lQYYi05B7fa6 amEhO7sj1gMOkO7sNe2+SFa/rmFEgKv0jcnnmWe1gzKE/hgOPmh08HW3Mnv0+gcuCg6H+/KPgvmk3gFW C34u0/tr9nRXioPqL7KufH/63BtXR1wMz09htwS6pK 5mgDfDWqe1njhCU3MX+8UdNVJShhXgfsK6CskcM/CBGLSRS3iLpf+R+nackvjEyXpMxwewVwYXqcMRxY npOmcnjFnRHtMQQfE6gsEVVa2ng1d/3OE14g4hXcFwCplw3f9xQfNI3DIxt+ppniYcfFjj2n5s08e9qP cQfAsJ2d6EyHstVWjB/6gYWOim6vtwym3gC60MBHSw eGLFiL9ITmICy6xoqC51aMOfwqwIoRAu86W8oV5SUQ8XQNsqDQEB0EF7qsu2ozctlRywiYVChekcLGAx HuiUVKfuqWLTzTlNa2pKwOlZMNCRb2HOiiul6GU4m902xsh6qNyoW5HCqWRgpv5JGI2qsEV6f0I2x4p4 1YKRPZsfwWxu0A7XSQoY0ZLkQoj8+YnpPasVs/Mhvm czZSM40W3ePLZ4a8b545zEl2PIU8g3ai/g6HkMASsdyQ/HDdcvnvQRxRPU5X4D7JnoCFmnLcWV0riZ2X W+4V+J07Xw/t0mtOIGgziiwKAfaeY2JFBWU/+8TVp+c2Md8/5citpSpz8pHkkPv33nRUHWTtVWEO5jgi nTylazdjpP4eEnHeM09PUZCQS4+7i+uwU0+BlhLCn3 2AsG0tppwvx609DdBtBdKAhswv3A44RZGylzzuSWtmkeubBUnvHEjOSxY06oetpbbipTmEO1mzqCazup [file] 2Y+precinct captain+4e25bpwwHj9OL4d09CfQx2hXA1c9OuGhOssgFAGm04cLzWtSy1A1IF1Da8P0/AzrdXyNM9P79 [file] TLCp9+3q8FsfnsslsqLwMQczE6bm91F+44r/N [file] 0HSyAvOO1nvy5FBxL1COG6yLGlHp7YUlZ8YuagBGqbYDDEAp== ID Date Data Source [id number] 05/09/2020 07:45:00 AM EDT [facility] Name Value Range Interpretation Code Description Data Noreen rce(s) Supporting Document(s) SARS coronavirus 2 RNA [facility] This lab was ordered by [facility] and reported by [facility]. ID Date Data Source [id number] 05/05/2020 12:11:00 PM EDT [facility] ([facility] ) Name Value Range Interpretation Code Description Data Noreen rce(s) Supporting Document(s) Surgical pathology study Laboratory test result [facility] ([facility], ) FINAL DIAGNOSIS Right breast, biopsy: Benign breast tissue with microcalcifications. Negative for malignancy. 05/06/2020 - 135 CLINICAL DIAGNOSIS Right breast CA 05/05/2020 - 1422 GROSS DIAGNOSIS Received in formalin labeled "right breast biopsy" and consists of a core fragment of tissue measuring from 0.5 to 2 cm. All in two. -OA 05/05/20201422 Signed OLMAN ZAVALA MD 05/06/2020 1356 ID Date Data Source [id number] 04/28/2020 09:16:00 AM EDT [facility] ([facility] Name Value Range Interpretation Code Description Data Noreen rce(s) Supporting Document(s) Laboratory test finding (navigational concept) Laboratory test result [facility] ([facility] Performed at: - [facility] [address] [id number] Security Director: Lu Seay MD, Phone: [phone] Elastase.pancreatic [Mass/mass] in Stool 401 [facility] ([facility] <content>INFCE Result Units: ug Elast./g </content>
<content>Severe Pancreatic Insufficiency: <100</content>
<content>Moderate Pancreatic Insufficiency: 100 - 200</content>
<content>Normal: >200</content>
<content>Performed at: [facility]</content>
<content>[address] [place] [id number]</content>
<content>Security Director: Toby Peralta MD, Phone: [phone]</content>
<content></content> ID Date Data Source [id number] 04/28/2020 09:16:00 AM EDT [facility] ([facility] Name Value Range Interpretation Code Description Data Noreen rce(s) Supporting Document(s) Laboratory test finding (navigational concept) Laboratory test result [facility] ([facility] No Campylobacter species isolated. Laboratory test finding (navigational concept) Laboratory test result [facility] ([facility] Laboratory test finding (navigational concept) Laboratory test r esult Above high normal [facility] ([facility] ) 05/04/20 1209: REMI/SHIG SCRN previously reported as: Preliminary report Laboratory test finding (navigational concept) Laboratory test r esult Above high normal [facility] ([facility] ) Aeromonas species 05/03/20 1205: SS RESULT1 previously reported as: Comment Microbiological testing to rule out the presence of possible pathogens is in progress. Heavy growth Laboratory test finding (navigational concept) Laboratory test result [facility] ([facility] S = Susceptible; I = Intermediate; R = Resistant P = Positive; N = Negative MICS are expressed in micrograms per mL Antibiotic RSLT#1 RSLT#2 RSLT#3 RSLT#4 Ceftriaxone S Ciprofloxacin S Gentamicin S Levofloxacin S Meropenem S Piperacillin/Tazobactam S Trimethoprim/Sulfa S Laboratory test finding (navigational concept) Laboratory test result [facility] ([facility] No Salmonella or Shigella recovered. ID Date Data Source [id number] 04/28/2020 09:16:00 AM EDT [facility] ([facility] Name Value Range Interpretation Code Description Data Noreen rce(s) Supporting Document(s) Clostridium difficile toxin A+B [Presence] in Stool by Immunoassay Laboratory test result [facility] THIS TEST IS PERFORMED USING A RAPID IMMUNONASSAY FOR DETECTING CLOSTRIDIUM DIFFICILE TOXINS A AND B. ID Date Data Source [id number] 05/03/2020 03:06:00 PM EDT [facility] Name Value Range Interpretation Code Description Data Noreen rce(s) Supporting Document(s) Fats, Neutral Normal [facility] Normal (<60 Droplets/HPF) Fats, Total Normal [facility] Normal (<100 Droplets/HPF) ID Date Data Source [id number] 05/07/2020 09:05:00 PM EDT [facility] Name Value Range Interpretation Code Description Data Noreen rce(s) Supporting Document(s) Calprotectin, Fecal 63 ug/g 0-120 [facility] Concentration Interpretation Follo w-Up<16 - 50 ug/g Normal None>50 -120 ug/g Borderline Re-evaluate in 4-6 weeks >120 ug/g Abnormal Repeat as clinically indicated ID Date Data Source [id number] 05/16/2020 05:05:00 PM EDT [facility] Name Value Range Interpretation Code Description Data Noreen rce(s) Supporting Document(s) Request Problem [facility] This assay is not approved for [facility] clients. TEST: [id number] Fecal Chymotrypsin ID Date Data Source [id number] 05/04/2020 12:09:00 PM EDT [facility] Name Value Range Interpretation Code Description Data Noreen rce(s) Supporting Document(s) SALMONELLA/SHIGELLA SCREEN Final report . [facility] 05/04/20 1209: REMI/SHIG SCRN previously reported as: Preliminary report SS RESULT1 Aeromonas species . [facility] rodrigo 05/03/20 1205: SS RESULT1 previously re ported as: Comment Microbiological testing to rule out the presence of possible pathogens is in progress.Heavy growth SS RESULT2 [address] [facility] No Salmonella or Shigella recovered. SS RESULT[address] [facility] S = Susceptible; I = Intermedia te; R = Resistant P = Positive; N = Negative MICS are expressed in micrograms per mL Antibiotic RSLT#1 RSLT#2 RSLT#3 RSLT#4Ceftriaxone SCiprofloxacin SGentamicin SLevofloxacin SMeropenem SPiperacillin/Tazobactam STrimethoprim/Sulfa S CAMPYLOBACTER CULTURE Final report . [facility] CC RESULT1 Comment . [facility] No Campylobacter species isolated. E COLI SHIGA TOXIN EIA Negative Negative [facility] Performed at: [facility] [id number] Director: Lu Seay MD, Phone: [phone] ID Date Data Source [id number] 05/06/2020 04:05:00 PM EDT [facility] Name Value Range Interpretation Code Description Data Noreen rce(s) Supporting Document(s) PANCREATIC ELASTASE, FECAL 401 >200 [facility] INFCE Result Units: ug Elast./g Se melina Pancreatic Insufficiency: <100 Moderate Pancreatic Insufficiency: 100 - 200 Normal: >200Performed at: [facility] [id number] Director: Toby Peralta MD, Phone: [phone] ID Date Data Source [id number] 05/04/2020 12:05:00 PM EDT [facility] Name Value Range Interpretation Code Description Data Noreen rce(s) Supporting Document(s) E coli Shiga Toxin EIA Negative Negative [facility] Campylobacter Culture Final report [facility] Salmonella/Shigella Screen Final report Abnor mal (applies to non-numeric results) [facility] ID Date Data Source [id number] 05/06/2020 04:05:00 PM EDT [facility] Name Value Range Interpretation Code Description Data Noreen rce(s) Supporting Document(s) Pancreatic Elastase, Fecal 401 ug Elast./g >200 [facility] Severe Pancreatic Insufficiency: <100 Moderate Pancreatic Insufficiency: 100 - 200 Normal: >200 ID Date Data Source [id number] 05/04/2020 12:05:00 PM EDT [facility] Name Value [...] SPiperacillin/Tazobactam STrimethoprim/Sulfa S ID Date Data Source [id number] 05/04/2020 12:05:00 PM EDT [facility] Name Value Range Interpretation Code Description Data Noreen rce(s) Supporting Document(s) Result 1 [facility] No Campylobacter species isolated. ID Date Data Source [id number] 04/28/2020 10:16:00 AM EDT [facility] [phone] Name Value Range Interpretation Code Description Data Noreen rce(s) Supporting Document(s) CDIFF A/B NEGATIVE NEGATIVE [facility] THIS TEST IS PERFORMED USING A RAPIDIMMU NONASSAY FOR DETECTING CLOSTRIDIUM DIFFICILE TOXINS AAND B. ID Date Data Source [id number] 04/27/2020 12:26:25 PM EDT [facility] Name Value Range Interpretation Code Description Data Noreen rce(s) Supporting Document(s) Progress Note [facility] QSAVLi2eYaCEXtLv55/GCUypCRNfc1DkKKgeOXi2BFteTAPdP1JyENF4tZ1jKWO4ULpWVaPkVxBiLCT4 [facility] [file] AgICAgICAgICAgICAgICAgICAgICAgICAgICAgICAg ICAgICAgICAgICAgICAgICAgICAgICAgICAgICAgICAgICAgICAgICAgICAgICAgICAgICAgICAgICAg LF8BOROzDDNyRUJvVUKlWFVuIFUjMIGeLIChNGUdOKFgHVRxDXKxBCXpJWScFOLaIYJwYAGkCAIgARYi ICAgICAgICAgICAgICAgICAgICAgICAgICAgICAgIC UkPFAtZBQcDZTzZR7NBJVyWLXiDJAmRQVkIQTpVDTiBFRrTOIsXLCuLJHnYPIlNIFbOOSxMBQnGEOqXQ LqLUReNQGjLTBrNVLrDJIhOZKlSUEhNDXgRMCqEDRwFQMoJGZnAYHgAOVzHMAsIOAfPXHzMN4JVBXpQA AgICAgICAgICAgICAgICAgICAgICAgICAgICAgICAg ICAgICAgICAgICAgICAgICAgICAgICAgICAgICAgICAgICAgICAgICAgICAgICAgICAgICAgICAgICAg UPMtSG0YLRJfAVYuXRZeTVMiLHIgCRNtROAqLQCvJRAyHVGtZWUgOBXvMWZtKXMbLCZoZGNvHYXnACRi ICAgICAgICAgICAgICAgICAgICAgICAgICAgICAgIC CcCJJxYJFxOOLlKALeLV4MKWLoMQHtAKXrWPFnAKVrJIToFAOyITOrGUCmGNKgMLYqPSWfDWHoNCEfXX FnNRElFDHpSYJfXKLfXESsHWZyKRYdSQUhQPCnLXRrUVNjYPBsELOsDNPhEKIoFCFfHIHtJWOoQH5PVQ AgICAgICAgICAgICAgICAgICAgICAgICAgICAgICAg ICAgICAgICAgICAgICAgICAgICAgICAgICAgICAgICAgICAgICAgICAgICAgICAgICAgICAgICAgICAg ULMoMCIwXU7BIDTiWUJxROTwMKRlXYAdRCTcOHKiUJAuXCMgWWZrPUCkGLZePYUvLMMuXTXiDOFpREEt ICAgICAgICAgICAgICAgICAgICAgICAgICAgICAgIC ZsIXXnJJJpKIRuWOWoPTXpDS4KGJBjRWTuZNYgMKSjNEKkTFMkTCLcZGZdVZUxQOBrOWGvHYLmTXTxKY AgICAgICAgICAgICAgICAgICAgICAgICAgICAgICAgICAgICAgICAgICAgICAgICAgICAgICAgICAgIA 0LYR22tPXyf9F9KGPfAH9pxky/Hw0LSEklebHvePOl TJ2WLlCnEA0vnl9ORqTmNF0ihb8FWMtAOhXdR0L4mRFdRURtGKCSCvRqH37lLPruLg45FZfhHDJsXvGh JPt2Ja4QEdAxT5ebOKMpGbX3HHHxCtGuEFtmJT4Na6RsuJJxGQl+Vm9TRZ6rn6SfUZkpPVEjGC4atl6O YRsVHgJuX5AtopU6ONPxXPJbGt0FVFWkFDUvdGAxGW GhQSOGTqVtT3LoaA50VVCLPu0+HHjqypDvQnjTVyErNABek9PuYVy9BN8ZUTLeVGf6xMDaDAPzL1Pnn7 RjVs66XDIhBchiGGTxmYEUaVoxpiRJmuFhjlqpZIQcASRmOO6aRQ3fQFVzZSJqYmC1YEXAER3RXAMnWI AnoXMsLYTpMZMCUK5QDFneQWB5GIHuevBdcZVqVKfj EG7YRVPbtlEfCJeqHUUFJGz+Ko8BKF4xo3TuJBseTQDdVI9yao5HOXfRDaZbD2H0wPNpN4F2AXluRk9T QJVkZNBkQJghXDEJOAavJO8YLG6nysT7NA5KiPGxVUApHWCajHGmFGd1Q37aqZWuSWioQI0XZZR+Carlo+ Wb5TFZVyELIjBYUtGvCfQOZIIoPuZ0QnX7QNv6UbS6 SaGH71bAmxzuKoLYalCN0LFV4jWLDuGDDQIX1VgUGcnK0cwyGdVOMiIABOLxWyP66uiMDxFXKaKCM0HK AzYe4CHXVzY6WruvWpiGggnlGwCOJePJOQFR2UPSizycZnuEHueMnqWL08zAofCY8KVw9ZPbFvNT8fnu 3XoGLcRo5RSLHhOw5GTWFhEVZeBDDgDHR2JQWnIjMw DYzuHSSbORSlKJO5FJSfZQNsVL1FQxShGYQkVRwhZNRySYOvWOQcih4SRLCiESKiTWb8TFHyQBVeHUUu YEbyFLXlZXXgTPR3OYKjANNlDF7UUsRmMBNzAOV6NFJgNSYpUGKhcu2SFMEiABWePvCqBUTyYHToKAIg XBzzOOAtSYXaELY6XTEnLHJxHB1COnLkLGBfDDUxRu YdKRWpAXSqhx3DOAIqIVJsXgJ3XQZmAQJtEEWqXWglDVBqNXX4ZXIvSUHiVDLhDS4GYyIlCWTcLOE0DS LmQMFkSOIuni8YFCKdAADpMRf7RjUeLNCdWCQdQHgkXEZtBNR3LDZ7GLCeHTKnQF6NIlUpSQKpTHY5Sr WbPHRkGKBuga0SDTQpBKWfAnK5HuRxIZOfBBSzGNuh FMCvZWD5KVOaKTNkBLCqCZ1NHqTwSKAiWKyfHUvqZOYlKKCzuz2FIPCxCLIsRuV3ZJHyVSAdDGQwIYnd AMSeBZN2THz6TGXvOMCzOO5LAoXpSIEpGQo1LlclCJXgSSRwmt2FFRZoUKAuDEMyRCKiJQKhPJPvNNb1 byFwtHBnEPk7AC8SD9DnciVtSgKZYo0Gg038IQUsGL RgTl8RX4euQt2hFTUhTEIOVj1OUKw0BvziTrVpVCG2RvTxDVYaATLtVFHxPfSrJDEfVSCtOaK+IDxjNz IxFTY8LTOoObRzNEEoFXFtOTJdHGZhEyQwB1T2NQ1tZSCPWd3+AHdrwKMynWjzSSDGCbU6PmXoPJpcRY VPRg0K ID Date Data Source [id number] 04/30/2020 04:05:00 PM EDT [facility] Name Value Range Interpretation Code Description Data Noreen rce(s) Supporting Document(s) VITAMIN A 33.3 ug/dL 22.0-69.[address] [facility] Reference intervals for vitamin A determ ined from [facility] studies. Individuals with vitamin A less than 20ug/dL are considered vitamin A deficient and those withserum concentrations less than 10 ug/dL are consideredseverely deficient.This test was developed and its performance characteristicsdetermined by [facility]. It has not been cleared orapproved by the Food and Drug Administration.Performed at: [facility] [place], [place] [id number] Director: Toby Peralta MD, Phone: [phone] ID Date Data Source [id number] 04/27/2020 08:06:00 AM EDT [facility] l Name Value Range Interpretation Code Description Data Noreen rce(s) Supporting Document(s) VITAMIN D, 25-HYDROXY 35.0 ng/mL 30.0-100.[address] [facility] Vitamin D deficiency has been defined by the [place] [employer] and an Endocrine Society practice guideline as alevel of serum 25-OH vitamin D less than 20 ng/mL (1,2).The Endocrine Society went on to further define vitamin Dinsufficiency as a level between 21 and 29 ng/mL (2).1. IOM ([employer] [employer]). 2010. Dietary reference intakes for calcium and D. [place]: The National Academies Press.2. Rian MF, Lefty BUSTILLO, Marbin GOYAL, et al. Evaluation, treatment, and prevention of vitamin D deficiency: an Endocrine Society clinical practice guideline. JCEM. 2010; 96(7):1911- 30.Performed at: [facility] [address] [place] [id number] Director: Lu Seay MD, Phone: [phone] ID Date Data Source [id number] 04/28/2020 06:05:00 AM EDT [facility] Name Value Range Interpretation Code Description Data Noreen rce(s) Supporting Document(s) VITAMIN B12 1305 pg/mL 232-1245 [facility] Performed at: [facility] [address] [place], [place] [id number] Director: Lu Seay MD, Phone: [phone] ID Date Data Source [id number] 04/27/2020 08:06:00 AM [facility] Name Value Range Interpretation Code Description Data Noreen rce(s) Supporting Document(s) Vitamin D, 25-Hydroxy 35.0 ng/mL 30.0-100.0 [facility] Vitamin D deficiency has been defined by the [employer] and an Endocrine Society practice guideline as alevel of serum 25-OH vitamin D less than 20 ng/mL (1,2).The Endocrine Society went on to further define vitamin Dinsufficiency as a level between 21 and 29 ng/mL (2).1. IOM ([place] [employer]). 2010. Dietary reference intakes for calcium and D. [place]: The National Academies Press.2. Rian MF, Lefty BUSTILLO, Marbin GOYAL, et al. Evaluation, treatment, and prevention of vitamin D deficiency: an Endocrine Society clinical practice guideline. JCEM. 2010; 96(2):1911-30. ID Date Data Source [id number] 04/28/2020 06:05:00 AM EDT [facility] Name Value Range Interpretation Code Description Data Noreen rce(s) Supporting Document(s) Vitamin B12 1305 pg/mL 232-1245 Above high normal [facility] ID Date Data Source [id number] 04/30/2020 04:05:00 PM EDT [facility] Name Value [...] and Drug Administration. ID Date Data Source [id number] 04/26/2020 01:11:00 PM EDT [facility] FAX [phone] Name Value Range Interpretation Code Description Data Noreen rce(s) Supporting Document(s) FERRITIN 25 ng/mL 8-[address] [facility] ID Date Data Source [id number] 04/26/2020 01:11:00 PM EDT [facility] FA[facility] [phone] Name Value Range Interpretation Code Description Data Noreen rce(s) Supporting Document(s) IRON 106 ug/dL 50-[address] [facility] TIBC 398 ug/dL 250-[address] [facility] % SATURATION 27 % 20-[address] [facility] ID Date Data Source [id number] 04/26/2020 12:32:00 PM EDT [facility] FAX [phone] Name Value Range Interpretation Code Description Data Noreen rce(s) Supporting Document(s) WHITE BLOOD COUNT 3.8 K/mm3 4.0-10.0 L [facility] al RED BLOOD COUNT 4.19 M/mm3 4.00-5.50 [facility] HEMOGLOBIN 13.4 gm/dL 12.0-16.[address] [facility] HEMATOCRIT 40.8 % 36.0-48.[address] [facility] MEAN CELL VOLUME 97.4 fl 80-96 H [facility] MEAN CORPUSCULAR HEMOGLOBIN 32.0 pg 27.0-31.0 H [facility] MEAN CORPUSCULAR HGB CONC 32.8 g/dl 32.0-36.0 [facility] RED CELL DISTRIBUTION WIDTH 11.5 % 10.0-14.5 [facility] PLATELET COUNT 217 K/mm3 172-[address] [facility] ID Date Data Source [id number] 04/26/2020 12:09:00 PM EDT [facility] ([facility] Name Value Range Interpretation Code Description Data [facility] Document(s) Ferritin [Mass/volume] in Serum or Plasma 25 ng/mL 8-252 [facility] ([facility] FAX [phone] Vitamin D, 25-Hydroxy 35.0 ng/mL 30.0-100.0 [facility] ([facility] Vitamin D deficiency has been defined by the [employer] and an Endocrine Society practice guideline as a level of serum 25-OH vitamin D less than 20 ng/mL (1,2). The Endocrine Society went on to further define vitamin D insufficiency as a level between 21 and 29 ng/mL (2). 1. IOM ([employer] [employer]). 2010. Di etary reference intakes for calcium and D. [place]: The National Academies Press. 2. Rian MC, Lefty BUSTILLO, Efraín santana GOYAL, et al. Evaluation, treatment, and prevention of vitamin D deficiency: an Endocrine Society clinical practice guideline. JCEM. 2010; 96(7):1911-30. Performed at: RN - [facility] [address] [id number] Security Director: Lu Seay MD, Phone: [phone] Cobalamin (Vitamin B12) [Mass/volume] in Serum or Plasma 1305 pg /mL 232-1245 Above high normal [facility] ([facility] ) Performed at: [facility] Lab[address] [id number] Security Director: Lu Seay MD, Phone: [phone] Retinol [Mass/volume] in Serum or Plasma 33.3 ug/dL 22.0-69.5 [facility] ([facility] Reference intervals for vitamin A determ ined [facility]. Individuals with vitamin A less than 20 ug/dL are considered vitamin A deficient and those with serum concentrations less than 10 ug/dL are considered severely deficient. This test was developed and its performance characteristics determined by [facility]. It has not been cleared or approved by the Food and Drug Administration. Performed at: [address] [id number] Security Director: oTby Peralta MD, Phone: [phone] ID Date Data Source [id number] 04/26/2020 12:09:00 PM EDT [facility] Name Value Range Interpretation Code Description Data Noreen rce(s) Supporting Document(s) Laboratory test finding (navigational concept) 106 ug/dL 50-170 [facility] ([facility] Tibc 398 ug/dL 250-450 [facility] Laboratory test finding (navigational concept) 27 % 20-50 [facility] ([facility] ID Date Data Source [id number] 04/26/2020 12:09:00 PM EDT [facility] ([facility] [...] 97.4 fl 80-96 Above high normal [facility] MCHC 32.8 g/dL 32.0-36.0 [facility] ([facility] MCH 32.0 pg 27.0-31.0 Above high normal [facility] ([facility] PLT 217 K/mm3 172-450 [facility] RDW 11.5 % 10.0-14.5 [facility] ID Date Data Source [id number] 04/26/2020 07:45:00 AM EDT [facility] Name Value Range Interpretation Code Description Data Noreen rce(s) Supporting Document(s) Follow Up [facility] FLTIZq2nAxXCNeOxUNNjZtsSIWntEWifCXOnJ2C5RAmsZw6UUWhucbOtPIFaOa0+GAMqWG8wqg4dAAOk gMy [file] o0YVMhLZD0sLsnOhGqxB3uYOufjBxmL0xRs2gfI+FORM 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/0HQnMqeec//PfMjtUTIuVw4cGIu+A8zw/N6+r vwFx8BBgwPHSCXk5kJXI4SLoTxEbEPC7igk1PHnYLS QbGNpHYBJ2S+XyX4XRfx2hg87Muen38vctgpm3knUXATtPQzkP23erwkGBbB+4H5Amy3fFUipg1Ruoeb JAW35z2yBT89IlA88bKeUYvrwNkVw86wpcTbQkZIsKEDWu4hCt7/aR8b7G0uEU4RGHVjzT/L2qd0+Corrina [file] 4PbaUfVo/g3Z5bCvRAcRyuUX7qgMUKAiAmt2gb+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 [file] djpNS0COXG4IEDhKgQinmpMswxfVQZ+Wjs88d+JOSÉ/BRl6OLM9oBtfYHS+Cwz/f8mRwoxmjpZx+dibSf [file] vp delivery/RTE+QO6azM0SOL44pbGjX38c4MYKnnuK/C65ouod9WxnYPQE4NF5cjzCQLCQapKEAd251OnbdZww6 [file] José+GHUXbugxqDsZB5wMqqleWfCrZvLbpZSR9ixzuug81EJWiWDHXDQ/IBbr8iniGv5s8KwXN6bCFW+s [file] josé/b96yCENk7zYMURx0IGUScu9F7klnoh2rekCYJUErB6SMDP7Jl/Rurmaj5P5DJdcv8rrQI2JWzX1s [file] psychologist engineering+6uM7eicOAOFptb14COBht/H+wTottNx+4iL+PwhzyM60b6XEw//HpglXmkDji6/0JOGoICNQLHKL [file] 9Feqqr/pCRdwcvgR2Ce2uWyT+xbendc3JL/Kurtis/BLK3ChacigOL0YTbxqUgkeilHjdhmR05lyOoMbBzGW 6Ip9XTzjq7Ca+Playroom Attendant+uQquIUqzYrK9lEktmN4OMpBvmcMI32ftK3uKsYEG46Cxjuhrivas66DfGTo6/zs [file] TAMPER OPERATOR/i TeauhbvQt+DVaLEx+H5ibiPwATTlzsSJIkQAJjzRn4yEbpeXyj5nqVj7mCIdhOJHAFDKZK7CSnnvYKQy 8mX8zPh+JAmVEAJz2KTMHTIbXKnfaUhe6s3+k/x7fh uZLwayG9DZ2x0YpkXaAoIv+2ge6eOa6FiortTN/3OzWqKnWWMZbFSqjEG0DX819h05xa9CWR1/o+fm2n sTBWK/RaBgFHGl9ZTzuWj1iuEIgMp9OZGYzvAJDhv6hbf38DJuDovRAj2XXT9XgKwX0dxJ2Fvcrdi5KF r/hEdO5vLzXzIi93EywkiV7k/vImQfa32aSBShwVdD 06vK/TvRVzag2lzSnHxXzYbvrjRaOQ7MlaWe+3fy4VgCbdN38urskndphLdl8sbBKQuCCmdFbnAAYv7p UZ9XQ0w4ry9L7b5HXn4rcUDLHERHpNCv/06PIN1WNe/rVrSgZ3fS0PXJ8kS+Ozz4POC/4M6MDOzPTRd3 Jf6RUqVg6NDZM1pbifzEOB31BFEnvv2sYfwLGXbcxT Rp2bpLBZu8waorvRbzMpvqcvGcGSeNT+vnewSzSDc+5vDddWaf6255WymmttgfAAUWORkD6+4RtNZBaM SsmpBKC/WDJ1V+H+GK/fYIPhzg0dcmDrdtuoTW2btJmGIwndPs3Ga9V28EnDD6qeQ/iSuGS9zScLkpWY CnNqo/mMHVuStED9fLlRsGe7N4GGic3vKWxv7JqP0S PS9PmOnUj4Nm7Cu/27d+/4vwgvfU82RM+mLmRZKro0LyuUTHQZHT/IEhyunTqdJi3lEXZKEJ5ng4xx+N mUqsMX7Iolvo5cjT+PRuv9Ok3BL+GnaVc6ZoHXe0FL+T1suvTIO9Q4dc1eOwyu9punpzWoYQAE1lpzBe JXr4umx/Iman/eeY/U1W7Nl2yDYY2U81H70nlpiCVtMz [file] [employer] LIMOUSINE+4zcwfnaoDnporb94uc05AlXHQgrUuIhSJWLPka0YG5oEdY5l3N3ChEH6lEew8AjfAANisTqzhSZVr [file] T9jKYkxifmmGpxNQAn74FhSt1IsRIyq6zXpkRW+[facility] [file] vp delivery/3XVULgXDedlNsYdwkyAyf2BQYrImMDFR2+RG00U+xrFSLrhtm9A7X6BAm0L3Dz5y5RrAAWsYfzmhK [file] TLRdMNBj2lmt81tvzXR0mcNhBGOUFfDLkC4OMgA3SkA3TLftebKBWIKx+MbifL0UWNS/tWrYNq54O+Cargo Router [file] bBAFX1yG04mpIL4/senior living+Mffn6+OWwipGaUR/xPjzmdB1OrRouUK+fr/uC5GEgTaznEl6beKhCuf2ju8 [file] Pilar/NDLSG5EhLcm3+7i0QfensZ3CN+Be3rwlRWkw+L 3U0vZh8uUsK5ZrRBN9nzBRtUMh3S2UHWCZ6P96RUbPD7CjA4KFOdhP7AH99KMCXChirsAR3C9CTAQxJh K6rLtRRK9QIoEpSgaKnYVkYzbe5U+iCnv9tQWwgHtHCG5Q2d5b8iXKXM2cXfjdA3e2AqQczfLCUDlbv1 cRNIgq8yHYrzYX8r+ZgHspG+wCsynGkvw7qVabNsDg gr51HWKfeh3nHcOQlf58Rhdye9GgPfSuadnBYFJ2VBl/eCSiZ3O/5bgx5j+tlPmfyHMcL/qvXZVI7w7K D6Mfr4YZLrv5JWLwIzfLNb6sPTL5/4e1/jyJMLhcsh0p0tSax9B+M54DI6tbpOGsitRXw/8vUv+FfkU7 v4F9q1n9bPMEe45XTlH3L8SYVMRvyOZM3iA/xYELi9 zPWoPwyfF0gWODQ4s7xnChbTI3n+V8CDLa6nhcklyE2HMLhfVzx1mzgZDLx+UKir0mO7sG/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 [file] 6CqTWk0dGjySdi4DTtUs8BeaCryeBIRgl938y2/CbccP+5jDIJ5vNau9NYtC6ueLIME835L5yL+dXX1CaUDuS/Sz6sto7BUPTMwi4kMKq+2tVGtJJTme62 uWBtc2tnmFBESu17PXitdOhOmw7u2xtquCAWglAjInhb4EyiQYedm3OrVXwitU8iSqhv8GmP2wwHKg3v 2LbBamePvq1Vf6GXkm1QW56Enaw+QQI897n2v1X523 DWkqOqJEn/Maria Victoria+8pm67m8mkV4nfobCD2t9U+wTIigOfx7QvXJ8SrYLlhpw6HIBHlicSjRFr16rqtE6Rp [file] Architect Marine/RT7SJiOCVAidO+kIsPD0LDoU5ETVaQdVpj2db9SdDnBhyGO5UBRNi1r2kpnnvViVBVgLHV0TaP89 [file] +33POzfcHnDF+F+ziAt5e0zs4t0mu81iilPNKgq [file] 1jcVxYplg14Ab7h8BeXtQOAvh5ogj0oInmPTLBqo7nzzIBFhWNLYEbzuvvpm5PUQjggXQ3C+Oanh+yDQcv rbaAlok4Ab2QlDqu0lVze46b38zRIPknAl4kzz/ujb 67KgAvQ3DPLQMA/bG7gskDP3+BcVWs4C0AckrhOW44fUAMpyeiCg0J1Picob50fO/IWuFycOQCfWarzV ra0yJUqaND4vRjvw+kl8M4AMwULBvlIZEG9hr2TIhIezpa4XjGuCzeUzRhcUKLL5VRd2paAHj0l3eTyv IhmAcQeMFNpQ6Uesr4KzPbObk2WM4PM48dTCeNneb7 mq++lVa1xOWsGsQQ6zE/GxK7IoK/8VI200CDA67i8iO1Li1vCkdJwAhiXdC/+jA3hIl+YNA4azdz1S2U DRYdRHdW/9bJPn8myrZVDQHjEcHBiC5LuCfdfiRl7UprFZcg6AvR03tMaGCG+1lRvhI6jIwYzb+2/89a jQldBy89Q6hLg25O0qGgQ1RVHRJvcbbdWOBh5xB7ub FTSKOnz67iltY7HCHxYbfe/20b7JeysUf+P+sales and service officer+Z0rWQXkIMEi64puiYy/8QTmYJplHDSODDBsOUlolL I1gwmOZ1GeYc6qXWHaCs6U32s6I56D65SaCgr34Tj8sH5LTyPuucXqkVfYXwcysoU5uu9kwIH5y/+X9E lGUGS5EPjisKtnP8rD7R5cZTi+s4fqp+4uO0fZ6bKJ /LiNYpIjJyOL3aI/tDPck2u5NKDdpYbvyghhSEmA4+e+HM3s+MXWM0VlB3XJdn5Ff/2bx9+u+GYCS3Tx I0HxsHkN0yG7YmEnk4PIxylaSXlpgU+a3REvS6+TJ33GEVZIfxGlG3+G9CyabjKNuZOJd9Q//qtG9yzS jRcQXj05IwZAfYEBLOK+iWIz7sTw2T++Xn8ma8Wzbt PcnINb/38AC2N8qWgV4Pl26430/6htB2GGQIHXgiL6Y+EOqwrBa4y5lSnxivCth+HvCNK4aa9BYm2qBC 2FdofZBwx5G5t+91sD4UPr9sazppJ6vUQj31gbc1JBMxmKy6YQmH6JgPPQHBtIhAMTqfN13G624v8Zf0 FK/9RXT0RJmv5my+5yL5DcdxBSvmvEXwvxHrgvM2/B ckcT9boUTOh7HhYwCWsvYOsPDpSDsWluXL6rag/g/LFul1258P0Wa/Euzsl++0CuZKY3aywIlmbN0Me6 ItOoNJvuh9XlrQIIu2O0Ih51iam4129cHGyZWJYI5/y9SsNodMv5KMJkGCprYNIBnmy4a5qGyEMUSe+b GNEVZGVZPAAuygtnT+l7XnyjXzWZRRjPRSNh3RVzq8 [file] VNDB3xxB6fpUuF3UKC5kh9CkYPYdNQyblkFkUzqLXGrfhQXjwWpqECCHEiCmBRMlAuRCMrZhRO3F ID Date Data Source [id number] 04/25/2020 09:50:59 AM EDT [facility] Name Value Range Interpretation Code Description Data Noreen rce(s) Supporting Document(s) Progress Note [facility] IMSWTb8wWnCPXrXd01/VATxaQTCao8VxWVxnFUn2OPesEERgP5BxJBE0kD3uBBS2QStZUrCtLeToNZJ7 lbm [file] MLX3WKAaGyTuBQ1VAb0MGvB8RXZ6iHThOd5WSHa6EHRDHiKhBE7VGIi= ID Date Data Source [id number] 03/22/2020 08:41:00 AM EDT [facility] Patient: JOHNSON HUGHES Observati on Report - Physicians/Mid Levels [facility].VisitID: [id number] [place] [address] [phone], FRegistration Date/Time: 03/22/2020 07:40 Weight:90.7 kg (S). Height/Length:64 inches (S). BMI:34.3 PAST HISTORYProblems:Back Pain [Chronic].Breast Cancer. (In process of diagnosis currently (right side))Tendonitis.Sciatica.Arthritis.Knee Effusion.Myofascial Strain [Intermittent].Contusion [Resolved].Gastroenteritis [Resolved].Contusion [Resolved].Abnormal Liver Function Test [Resolved].Cholecystitis [Resolved].Knee Injury [Resolved].Vomiting [Resolved].Neck Injury Risk Factors [Resolved]. Additional Surgeries:Ankle . (Rigth side fracture repair)Appendectomy.Back Surgery.Cholecystectomy.Colonoscopy.Gastric bypass.Hysterectomy.Knee Surgery. Medications:Biotin Oral (Tablet 05782 mcg) 1 tablet, daily, last dose today.Multivitamin Oral 1 tab , daily, last dose today.Vitamin D Oral 1 capsule, daily, last dose today. Allergies:'fresh fruits and vegetables' .(Anaphylaxis)Morphine.(vomiting)Tetanus shot.(rash, swelling)Tramadol.(hives, itching, rash) (chest pressure)Tree nuts.(angioedema, itching). FAMILY HISTORYNo significant family medical history. (Electronically signed by Shakila Maxwell, PCarolACarol 03/22/2020 08:34) Name Value Range Interpretation Code Description [facility] Document(s) ID Date Data Source [id number] 03/01/2020 01:13:00 PM EDT [facility] ([facility], ) Name Value Range Interpretation Code Description Data [facility] Supporting Document(s) Surgical pathology study Laboratory test result [facility] ([facility], ) FINAL DIAGNOSIS Right axillary lymph node, image guided biopsy: Cores and fragments of benign lymph node and mature adipose tissue. 03/03/2020 - 1028 CLINICAL DIAGNOSIS Right axillary adenopathy 03/02/2020 - 726 GROSS DIAGNOSIS Received in formalin labeled "right axillary lymph node" are several fragments of pink-rodriguez soft tissue cores ranging from 0.2 to 0.8 cm in length. All in one. -STEPHAN 03/02/2020 - 726 Signed Amy Schmitz MD 03/03/2020 1317 ID Date Data Source [id number] 12/03/2019 09:17:00 AM EDT [facility] ([facility] Name Value Range Interpretation Code Description Data Noreen rce(s) Supporting Document(s) BUN 7 mg/dL 8-23 Below low normal [facility] ([facility] CHRONIC KIDNEY DISEASE STAGING PER [...] HCT IS 5% LESS SOURCE FOR DATA: [employer] 1800 OPERATION MANUAL( AUTOMATED BLOOD COUNTS AND DIFF.) APPENDIX B-3 Glu 96 mg/dL 70-110 [facility] ([facility] CHRONIC KIDNEY DISEASE STAGING PER [...] HCT IS 5% LESS SOURCE FOR DATA: [employer] 1800 OPERATION MANUAL( AUTOMATED BLOOD COUNTS AND DIFF.) APPENDIX B-3 Na 139 mmol/L 136-145 [facility] ([facility] CHRONIC KIDNEY DISEASE [...] DIFF.) APPENDIX B-3 Creat 0.7 mg/dL 0.5-1.0 [facility] CHRONIC KIDNEY DISEASE [...] HCT IS 5% LESS SOURCE FOR DATA: [employer] 1800 OPERATION MANUAL( AUTOMATED BLOOD COUNTS AND DIFF.) APPENDIX B-3 BUN/Creatinine Ratio 10.3 CALC [facility] ([facility] CHRONIC KIDNEY DISEASE STAGING [...] HCT IS 5% LESS SOURCE FOR DATA: [employer] 1800 OPERATION MANUAL( AUTOMATED BLOOD COUNTS AND DIFF.) APPENDIX B-3 CL 102.5 mmol/L 98.0-107.0 [facility] CHRONIC KIDNEY DISEASE STAGING [...] APPENDIX B-3 Co2 26.3 mmol/L 22.0-29.0 [facility] ([facility] CHRONIC KIDNEY DISEASE [...] DIFF.) APPENDIX B-3 K 4.6 mmol/L 3.5-5.1 [facility] CHRONIC KIDNEY DISEASE STAGING PER [...] DIFF.) APPENDIX B-3 Alb 4.1 g/dL 3.4-4.8 [facility] ([facility] CHRONIC KIDNEY DISEASE STAGING PER [...] HCT IS 5% LESS SOURCE FOR DATA: [employer] 1800 OPERATION MANUAL( AUTOMATED BLOOD COUNTS AND DIFF.) APPENDIX B-3 CA 9.7 mg/dL 8.6-10.2 [facility] ([facility] CHRONIC KIDNEY DISEASE STAGING PER [...] HCT IS 5% LESS SOURCE FOR DATA: [employer] 1800 OPERATION MANUAL( AUTOMATED BLOOD COUNTS AND DIFF.) APPENDIX B-3 TP 6.5 g/dL 6.6-8.7 Below low normal [facility] ( [facility] CHRONIC KIDNEY DISEASE STAGING [...] HCT IS 5% LESS SOURCE FOR DATA: [employer] 1800 OPERATION MANUAL( AUTOMATED BLOOD COUNTS AND DIFF.) APPENDIX B-3 Globulin 2.4 CALC [facility] CHRONIC KIDNEY DISEASE STAGING PER [...] HCT IS 5% LESS SOURCE FOR DATA: [employer] 1800 OPERATION MANUAL( AUTOMATED BLOOD COUNTS AND DIFF.) APPENDIX B-3 A/G Ratio 1.7 CALC [facility] CHRONIC KIDNEY DISEASE STAGING PER [...] DIFF.) APPENDIX B-3 Alp 91.1 U/L 35-129 [facility] ([facility] CHRONIC KIDNEY DISEASE STAGING PER [...] APPENDIX B-3 Alt (SGPT) 11 U/L 0-41 [facility] ([facility] CHRONIC KIDNEY DISEASE STAGING PER [...] HCT IS 5% LESS SOURCE FOR DATA: [employer] 1800 OPERATION MANUAL( AUTOMATED BLOOD COUNTS AND DIFF.) APPENDIX B-3 Tbili 0.62 mg/dL 0.0-1.2 [facility] ([facility] CHRONIC KIDNEY DISEASE STAGING PER [...] B-3 Ast (Sgot) 18 U/L 0-40 [facility] ([facility] CHRONIC KIDNEY DISEASE STAGING PER [...] DIFF.) APPENDIX B-3 Anion Gap 15 mmol/L [facility] CHRONIC KIDNEY DISEASE STAGING PER [...] HCT IS 5% LESS SOURCE FOR DATA: [employer] 1800 OPERATION MANUAL( AUTOMATED BLOOD COUNTS AND DIFF.) APPENDIX B-3 eGFR 105 # MEDENT ( [facility] CHRONIC KIDNEY DISEASE STAGING PER [...] HCT IS 5% LESS SOURCE FOR DATA: [employer] 1800 OPERATION MANUAL( AUTOMATED BLOOD COUNTS AND DIFF.) APPENDIX B-3 Osmolality-Calculated 274.8 CALC MED ENT ([facility] CHRONIC KIDNEY DISEASE STAGING [...] HCT IS 5% LESS SOURCE FOR DATA: [employer] 1800 OPERATION MANUAL( AUTOMATED BLOOD COUNTS AND DIFF.) APPENDIX B-3 eGFR Non-Afr. Emirati 90 # MEDENT ([facility] CHRONIC KIDNEY DISEASE STAGING [...] HCT IS 5% LESS SOURCE FOR DATA: [employer] 1800 OPERATION MANUAL( AUTOMATED BLOOD COUNTS AND DIFF.) APPENDIX B-3 ID Date Data Source [id number] 12/03/2019 09:17:00 AM EDT EVELYN ([facility] Name Value Range Interpretation Code Description Data Noreen rce(s) Supporting Document(s) WBC 4.2 10E3/uL 4.1-10.9 EVELYN ([facility] CHRONIC KIDNEY DISEASE [...] HCT IS 5% LESS SOURCE FOR DATA: [employer] 1800 OPERATION MANUAL( AUTOMATED BLOOD COUNTS AND DIFF.) APPENDIX B-3 HGB 14.3 g/dL 12.0-18.0 MEDENT [facility] CHRONIC KIDNEY DISEASE [...] HCT IS 5% LESS SOURCE FOR DATA: [employer] 1800 OPERATION MANUAL( AUTOMATED BLOOD COUNTS AND DIFF.) APPENDIX B-3 HCT 42.4 % 37.0-51.0 MEDENT ([facility] CHRONIC [...] DIFF.) APPENDIX B-3 RBC 4.40 10E6/uL 4.20-6.30 [facility] ([facility] CHRONIC KIDNEY DISEASE STAGING PER [...] DIFF.) APPENDIX B-3 MCHC 33.7 g/dL 31.0-36.0 EVELYN ([facility] CHRONIC KIDNEY DISEASE [...] DIFF.) APPENDIX B-3 MCV 96.4 fL 80.0-97.0 [facility] ([facility] CHRONIC KIDNEY DISEASE STAGING PER [...] HCT IS 5% LESS SOURCE FOR DATA: [employer] 1800 OPERATION MANUAL( AUTOMATED BLOOD COUNTS AND DIFF.) APPENDIX B-3 MCH 32.5 pg 26.0-32.0 Above high normal MEDENT ([facility] CHRONIC KIDNEY DISEASE STAGING PER [...] HCT IS 5% LESS SOURCE FOR DATA: [employer] 1800 OPERATION MANUAL( AUTOMATED BLOOD COUNTS AND DIFF.) APPENDIX B-3 RDW-CV 11.8 % 11.5-14.5 EVELYN ([facility] CHRONIC KIDNEY DISEASE STAGING PER [...] HCT IS 5% LESS SOURCE FOR DATA: [employer] 1800 OPERATION MANUAL( AUTOMATED BLOOD COUNTS AND DIFF.) APPENDIX B-3 PLT 248 10E3/uL 140-440 [facility] ([facility] CHRONIC KIDNEY DISEASE [...] HCT IS 5% LESS SOURCE FOR DATA: [employer] 1800 OPERATION MANUAL( AUTOMATED BLOOD COUNTS AND DIFF.) APPENDIX B-3 Neut% 53.1 % 37.0-92.0 [facility] ([facility] CHRONIC KIDNEY DISEASE [...] HCT IS 5% LESS SOURCE FOR DATA: [employer] 1800 OPERATION MANUAL( AUTOMATED BLOOD COUNTS AND DIFF.) APPENDIX B-3 Lym% 37.8 % 10.0-58.5 [facility] [place] [facility] CHRONIC KIDNEY DISEASE [...] HCT IS 5% LESS SOURCE FOR DATA: [employer] 1800 OPERATION MANUAL( AUTOMATED BLOOD COUNTS AND DIFF.) APPENDIX B-3 MXD% 9.1 % 0.1-24.0 MEDENT ([facility] CHRONIC KIDNEY DISEASE [...] HCT IS 5% LESS SOURCE FOR DATA: [employer] 1800 OPERATION MANUAL( AUTOMATED BLOOD COUNTS AND DIFF.) APPENDIX B-3 Neut# 2.2 % 2.0-7.8 [facility] [place] [facility] CHRONIC KIDNEY DISEASE STAGING PER [...] APPENDIX B-3 Lym# 1.6 10E3/uL 0.6-4.1 EVELYN ([facility] CHRONIC KIDNEY DISEASE [...] MPV 8.5 fL 9.0-13.0 Below low normal [facility] ( [facility] CHRONIC KIDNEY DISEASE STAGING PER [...] HCT IS 5% LESS SOURCE FOR DATA: [employer] 1800 OPERATION MANUAL( AUTOMATED BLOOD COUNTS AND DIFF.) APPENDIX B-3 MXD# 0.4 10E3/uL 0.0-1.8 [facility] ([facility] CHRONIC KIDNEY DISEASE [...] HCT IS 5% LESS SOURCE FOR DATA: [employer] 1800 OPERATION MANUAL( AUTOMATED BLOOD COUNTS AND DIFF.) APPENDIX B-3 ID Date Data Source [id number] 08/31/2019 05:04:00 PM EST MEDENT ([facility] Name Value Range Interpretation Code Description Data Noreen rce(s) Supporting Document(s) Erythrocyte sedimentation rate by Westergren method 24 mm/hr 0-30 Normal (applies to non-numeric results) MEDENT ([facility] ID Date Data Source [id number] 08/31/2019 05:04:00 PM EST MEDENT ([facility] Name Value Range Interpretation Code Description Data Noreen rce(s) Supporting Document(s) White Blood Count 5.0 10 4.0-10.0 Normal (applies to non-numeri c results) MEDENT ([facility] Hemoglobin 13.0 g/dL 12.0-15.5 Normal (applies to non-numeric resul ts) MEDENT ([facility] Red Blood Count 4.15 10 4.00-5.40 Normal (applies to non-numeric results) MEDENT ([facility] Hematocrit 41.4 % 36.0-47.0 Normal (applies to non-numeric resul ts) MEDENT ([facility] Mean Corpuscular Volume 99.8 fl 80.0-96.0 Above high normal MEDENT ([facility] Mean Corpuscular Hemoglobin 31.3 pg 27.0-33.0 Norm al (applies to non-numeric results) MEDENT ([facility] ) Platelet Count, Automated 266 10 150-450 Normal (applies to non-numeric results) MEDENT ([facility] ) Mean Corpuscular HGB Conc 31.4 g/dL 32.0-36.5 Below low normal MEDENT ([facility] Red Cell Distribution Width 11.6 % 11.5-14.5 Norm al (applies to non-numeric results) MEDENT ([facility] ) Nucleated Red Blood Cell % 0.0 % 0-0 Normal (applies to n on-numeric results) MEDDANIELLA ([facility] ID Date Data Source [id number] 08/31/2019 05:04:00 PM EST MEDDANIELLA ([facility] Name Value Range Interpretation Code Description Data Noreen rce(s) Supporting Document(s) Blood Urea Nitrogen 9 mg/dL 7-18 Normal (applies to non-nume mindy results) MEDENT ([facility] Glucose, Fasting 99 mg/dL 70-100 Normal (applies to non-numeric results) MEDENT ([facility] Creatinine For GFR 0.62 mg/dL 0.55-1.30 Normal (applies to non -numeric results) MEDENT ([facility] Glomerular Filtration Rate > 60.0 Normal (applies to n on-numeric results) [facility] ([facility] <content>Units are mL/min/1.73 m2</content>
<content></content>
<content>Chronic Kidney Disease Staging per NKF:</content>
<content></content>
<content>Stage I & II GFR >=60 Normal to Mildly Decreased</content>
<content>Stage III GFR 30- 59 Moderately Decreased</content>
<content>Stage IV GFR 15-29 Severely Decreased</content>
<content>Stage V GFR <15 Very Little GFR Left</content>
<content>ESRD GFR <15 on [employer]</content>
<content></content> Sodium Level 144 meq/L 136-145 Normal (applies to non-numeric res ults) MEDENT ([facility] Chloride Level 108 meq/L 98-107 Above high normal MED ENT ([facility] Carbon Dioxide Level 29 meq/L 21-32 Normal (applies to non-num shakila results) MEDENT ([facility] Potassium Serum 3.8 meq/L 3.5-5.1 Normal (applies to non-numeric results) MEDENT ([facility] Ast/Sgot 23 U/L 7-37 Normal (applies to non-numeric resul ts) MEDENT ([facility] Calcium Level 8.4 mg/dL 8.8-10.2 Below low normal MEDEN T ([facility] Anion Gap 7 meq/L 8-16 Below low normal MEDENT ( [facility] Alt/SGPT 22 U/L 12-78 Normal (applies to non-numeric resul ts) MEDENT ([facility] Alkaline Phosphatase 99 U/L 45-117 Normal (applies to non-num shakila results) MEDENT ([facility] Bilirubin,Total 0.3 mg/dL 0.2-1.0 Normal (applies to non-numeric results) MEDENT ([facility] Total Protein 6.5 GM/DL 6.4-8.2 Normal (applies to non-numeric re sults) MEDENT ([facility] Albumin 3.2 GM/DL 3.2-5.2 Normal (applies to non-numeric resul ts) MEDENT ([facility] Albumin/Globulin Ratio 0.97 1.00-1.93 Below low normal MEDENT ([facility] ID Date Data Source [id number] 08/31/2019 05:04:00 PM EST MEDENT ([facility] Name Value Range Interpretation Code Description Data Noreen rce(s) Supporting Document(s) Prothrombin Time 13.1 s 11.8-14.0 Normal (applies to non-numeric results) MEDENT ([facility] Inr 1.02 Normal (applies to non-numeric resul ts) MEDENT ([facility] THERAPUTIC HUMAN INR VALUES INDICATIONS [...] Never Smoker completed Never S moker eCW1 ([facility]) Smoking 08/31/2020 12:00:00 AM EST Never Smoker completed Never S moker eCW1 ([facility]ly [facility]) Smoking 07/04/2020 12:00:00 AM EST Never Smoker completed Never S moker eCW1 ([facility]ly [facility]) Smoking 07/04/2020 12:00:00 AM EST Never Smoker completed Never S moker eCW1 ([facility]ly [facility]) Smoking 07/04/2020 12:00:00 AM EST Never Smoker completed Never S moker eCW1 ([facility]ly [facility]) Smoking 07/04/2020 12:00:00 AM EST Never Smoker completed Never S moker eCW1 ([facility]ly [facility]) Smoking 07/04/2020 12:00:00 AM EST Never Smoker completed Never S moker eCW1 ([facility]) Smoking 07/04/2020 12:00:00 AM EST Never Smoker completed Never S moker eCW1 ([facility]) Smoking 07/04/2020 12:00:00 AM EST Never Smoker completed Never S moker eCW1 ([facility]) Smoking 07/04/2020 12:00:00 AM EST Never Smoker completed Never S moker eCW1 ([facility]ly [facility]) Smoking 07/04/2020 12:00:00 AM EST Never Smoker completed Never S moker eCW1 ([facility]ly [facility]) Smoking 07/04/2020 12:00:00 AM EST Never Smoker completed Never S moker eCW1 ([facility]) Smoking 07/04/2020 12:00:00 AM EST Never Smoker completed Never S moker eCW1 ([facility]) Smoking 07/04/2020 12:00:00 AM EST Never Smoker completed Never S moker eCW1 ([facility]ly [facility]) Smoking 07/01/2020 12:00:00 AM EDT Never Smoker completed Never S moker eCW1 ([facility]ly [facility]) Smoking 06/15/2020 12:00:00 AM EDT Never Smoker completed Never S moker eCW1 ([facility]ly [facility]) Smoking 06/06/2020 12:00:00 AM EDT Never Smoker completed Never S moker eCW1 ([facility]ly [facility]) Smoking 06/06/2020 12:00:00 AM EDT Never Smoker completed Never S moker eCW1 ([facility]) Smoking 06/06/2020 12:00:00 AM EDT Never Smoker completed Never S moker eCW1 ([facility]) Smoking 06/06/2020 12:00:00 AM EDT Never Smoker completed Never S moker eCW1 ([facility]) Smoking 03/07/2020 12:00:00 AM EDT Never Smoker completed Never S moker eCW1 ([facility]ly [facility]) Smoking 01/27/2020 12:00:00 AM EDT Never Smoker completed Never S moker eCW1 ([facility]) Smoking 01/27/2020 12:00:00 AM EDT Never Smoker completed Never S moker eCW1 ([facility]) Smoking 01/27/2020 12:00:00 AM EDT Never Smoker completed Never S moker eCW1 ([facility]) Smoking 01/27/2020 12:00:00 AM EDT Never Smoker completed Never S moker eCW1 ([facility]) Vital Signs ID Date Data Source [id number] Name Value Range Interpretation Code Description Data Source(s) Respiratory rate 14 /min 14 /min MEDENT ( [facility]) Body mass index (BMI) [Ratio] 33.5 kg/m2 33.5 k g/m2 MEDENT ([facility]) Body weight 189.00 [lb_av] 189.00 [lb_av] MEDEN T ([facility]) Body height 63 [in_i] 63 [in_i] MEDENT ([facility]) 5'3" Body temperature 96.8 [degF] 96.8 [degF] MEDENT ([facility]) Heart rate 66 /min 66 /min MEDENT ([facility]) Diastolic blood pressure 81 mm[Hg] 81 mm[Hg] MEDENT ([facility]) Systolic blood pressure 135 mm[Hg] 135 mm[Hg] M EDENT ([facility] ) Oxygen saturation in Arterial blood by Pulse oximetry 95 % 95 % MEDENT ([facility] Body mass index (BMI) [Ratio] 33.7 kg/m2 33.7 k g/m2 MEDENT ([facility] [place] body weight 115 [lb_av] 115 [lb_av] MEDEN T ([facility] Body weight 190.00 [lb_av] 190.00 [lb_av] MEDEN T ([facility] Body height 63 [in_i] 63 [in_i] MEDENT ([facility] 5'3" Respiratory rate 18 /min 18 /min MEDENT ( [facility] Heart rate 88 /min 88 /min MEDENT ([facility] Body temperature 97.1 [degF] 97.1 [degF] MEDENT ([facility] Diastolic blood pressure 78 mm[Hg] 78 mm[Hg] MEDENT ([facility] Systolic blood pressure 116 mm[Hg] 116 mm[Hg] M EDENT ([facility] Diastolic blood pressure 78 mm[Hg] 78 mm[Hg] eCW1 ([facility]) Systolic blood pressure 122 mm[Hg] 122 mm[Hg] e CW1 ([facility]) Body mass index (BMI) [Ratio] 32.51 kg/m2 32.51 kg/m2 eCW1 ([facility]) Body height 64.5 [in_i] 64.5 [in_i] eCW1 ([facility]) Body weight 87.27 kg 87.27 kg eCW1 ([facility]) Body weight 192.4 [lb_av] 192.4 [lb_av] eCW1 ([facility]) Body temperature 96.8 [degF] 96.8 [degF] MEDENT ([facility]) Body temperature 96.9 [degF] 96.9 [degF] MEDENT ([facility], ) Diastolic blood pressure 72 mm[Hg] 72 mm[Hg] eCW1 ([facility]) Systolic blood pressure 122 mm[Hg] 122 mm[Hg] e CW1 ([facility]) Body mass index (BMI) [Ratio] 32.92 kg/m2 32.92 kg/m2 W1 ([facility]) Body height 64.5 [in_i] 64.5 [in_i] eCW1 ([facility]) Body weight 88.36 kg 88.36 kg W1 ([facility]) Body weight 194.8 [lb_av] 194.8 [lb_av] eCW1 ([facility]) Body surface area Derived from formula 1.94 m2 1.94 m2 [facility] ([facility], ) Body weight 87.998 kg 87.998 kg [facility] ([facility], ) [place] body weight 120 [lb_av] 120 [lb_av] MEDEN T ([facility], ) Body mass index (BMI) [Ratio] 33.0 kg/m2 33.0 k g/m2 [facility] ([facility], ) Body weight 194.00 [lb_av] 194.00 [lb_av] MEDEN T ([facility], ) Body height 64.25 [in_i] 64.25 [in_i] MEDENT ([facility], ) 5'4.25" Body temperature 98.1 [degF] 98.1 [degF] MEDENT ([facility], ) Respiratory rate 16 /min 16 /min MEDENT ( [facility]) Heart rate 80 /min 80 /min [facility] ([facility], ) Diastolic blood pressure 72 mm[Hg] 72 mm[Hg] MEDENT ([facility], ) Systolic blood pressure 138 mm[Hg] 138 mm[Hg] M EDENT ([facility], ) Oxygen saturation in Arterial blood by Pulse oximetry 94 % 94 % MEDENT ([facility] Body mass index (BMI) [Ratio] 33.7 kg/m2 33.7 k g/m2 MEDENT ([facility] [place] body weight 115 [lb_av] 115 [lb_av] MEDEN T ([facility] Body weight 190.00 [lb_av] 190.00 [lb_av] MEDEN T ([facility] Body height 63 [in_i] 63 [in_i] MEDENT ([facility] 5'3" Respiratory rate 14 /min 14 /min MEDENT ( [facility] Heart rate 68 /min 68 /min MEDENT ([facility] Body temperature 98.1 [degF] 98.1 [degF] MEDENT ([facility] Diastolic blood pressure 84 mm[Hg] 84 mm[Hg] MEDENT ([facility] Systolic blood pressure 128 mm[Hg] 128 mm[Hg] M EDENT ([facility] Diastolic blood pressure 90 mm[Hg] 90 mm[Hg] eCW1 ([facility]) Systolic blood pressure 118 mm[Hg] 118 mm[Hg] e CW1 ([facility]) Body mass index (BMI) [Ratio] 31.94 kg/m2 31.94 kg/m2 eCW1 ([facility]) Body height 64.5 [in_i] 64.5 [in_i] W1 ([facility]) Body weight 85.73 kg 85.73 kg W1 ([facility]) Body weight 189 [lb_av] 189 [lb_av] eCW1 ([facility]) Diastolic blood pressure 68 mm[Hg] 68 mm[Hg] eCW1 ([facility]) Systolic blood pressure 122 mm[Hg] 122 mm[Hg] e CW1 ([facility]) Body temperature 97.6 [degF] 97.6 [degF] eCW1 ( [facility]) Respiratory rate 18 /min 18 /min eCW1 ([facility]) Heart rate 77 /min 77 /min eCW1 ([facility] Body mass index (BMI) [Ratio] 32.12 kg/m2 32.12 kg/m2 eCW1 ([facility]) Body height 64.5 [in_i] 64.5 [in_i] eCW1 ([facility]) Body weight 86.23 kg 86.23 kg eCW1 ([facility]) Body weight 190.1 [lb_av] 190.1 [lb_av] eCW1 ([facility]) Diastolic blood pressure 70 mm[Hg] 70 mm[Hg] eCW1 ([facility]) Systolic blood pressure 124 mm[Hg] 124 mm[Hg] e CW1 ([facility]) Body mass index (BMI) [Ratio] 32.21 kg/m2 32.21 kg/m2 eCW1 ([facility]) Body height 64.5 [in_i] 64.5 [in_i] eCW1 ([facility]) Body weight 86.45 kg 86.45 kg eCW1 ([facility]) Body weight 190.6 [lb_av] 190.6 [lb_av] eCW1 ([facility]) Diastolic blood pressure 82 mm[Hg] 82 mm[Hg] eCW1 ([facility]) Systolic blood pressure 126 mm[Hg] 126 mm[Hg] e CW1 ([facility]) Body mass index (BMI) [Ratio] 32.11 kg/m2 32.11 kg/m2 eCW1 ([facility]) Body height 64.5 [in_i] 64.5 [in_i] eCW1 ([facility]) Body weight 190 [lb_av] 190 [lb_av] eCW1 ([facility]) Body weight 193 [lb_av] 193 [lb_av] eCW1 ([facility]) Diastolic blood pressure 80 mm[Hg] 80 mm[Hg] eCW1 ([facility]) Systolic blood pressure 132 mm[Hg] 132 mm[Hg] e CW1 ([facility]) Body temperature 97.7 [degF] 97.7 [degF] eCW1 ( [facility]) Respiratory rate 18 /min 18 /min eCW1 ([facility]) Heart rate 74 /min 74 /min eCW1 ([facility]) Body mass index (BMI) [Ratio] 32.61 kg/m2 32.61 kg/m2 W1 ([facility]) Body height 64.5 [in_i] 64.5 [in_i] eCW1 ([facility]) Diastolic blood pressure 62 mm[Hg] 62 mm[Hg] eCW1 ([facility]) Systolic blood pressure 130 mm[Hg] 130 mm[Hg] e CW1 ([facility]) Body temperature 97.4 [degF] 97.4 [degF] eCW1 ( [facility]) Respiratory rate 18 /min 18 /min eCW1 ([facility]) Heart rate 65 /min 65 /min eCW1 ([facility]) Body mass index (BMI) [Ratio] 31.94 kg/m2 31.94 kg/m2 eCW1 ([facility]) Body height 64.5 [in_i] 64.5 [in_i] eCW1 ([facility]) Body weight 189 [lb_av] 189 [lb_av] eCW1 ([facility]) Heart rate 64 /min 64 /min MEDENT ([facility] Body temperature 98.6 [degF] 98.6 [degF] MEDENT ([facility] Diastolic blood pressure 84 mm[Hg] 84 mm[Hg] MEDENT ([facility] Systolic blood pressure 124 mm[Hg] 124 mm[Hg] M EDDANIELLA ([facility] Oxygen saturation in Arterial blood by Pulse oximetry 98 % 98 % EVELYN ([facility] Body mass index (BMI) [Ratio] 33.7 kg/m2 33.7 k g/m2 EVELYN ([facility] [place] body weight 115 [lb_av] 115 [lb_av] MEDEN T ([facility] Body weight 190.00 [lb_av] 190.00 [lb_av] MEDEN T ([facility] Body height 63 [in_i] 63 [in_i] EVELYN ([facility] 5'3" Respiratory rate 14 /min 14 /min EVELYN ( [facility] Diastolic blood pressure 72 mm[Hg] 72 mm[Hg] eCW1 ([facility]) Systolic blood pressure 120 mm[Hg] 120 mm[Hg] e CW1 ([facility]) Body temperature 97.7 [degF] 97.7 [degF] eCW1 ( [facility]) Respiratory rate 18 /min 18 /min eCW1 ([facility]) Heart rate 61 /min 61 /min eCW1 ([facility]) Body mass index (BMI) [Ratio] 32.44 kg/m2 32.44 kg/m2 eCW1 ([facility]) Body height 64.5 [in_i] 64.5 [in_i] eCW1 ([facility]) Body weight 192 [lb_av] 192 [lb_av] eCW1 ([facility]) Diastolic blood pressure 72 mm[Hg] 72 mm[Hg] eCW1 ([facility]) Systolic blood pressure 120 mm[Hg] 120 mm[Hg] e CW1 ([facility]) Body temperature 98.7 [degF] 98.7 [degF] eCW1 ( [facility]) Respiratory rate 16 /min 16 /min eCW1 ([facility]) Heart rate 86 /min 86 /min eCW1 ([facility]) Body mass index (BMI) [Ratio] 33.29 kg/m2 33.29 kg/m2 eCW1 ([facility]) Body height 64.5 [in_i] 64.5 [in_i] W1 ([facility]) Body weight 89.36 kg 89.36 kg eCW1 ([facility]) Body weight 197 [lb_av] 197 [lb_av] eCW1 ([facility]) Body mass index (BMI) [Ratio] 34.9 kg/m2 34.9 k g/m2 MEDENT ([facility]) Body weight 200.00 [lb_av] 200.00 [lb_av] MEDEN T ([facility]) Body height 63.5 [in_i] 63.5 [in_i] MEDENT ([facility]) 5'3.50" Body temperature 98.0 [degF] 98.0 [degF] MEDENT ([facility]) Oxygen saturation in Arterial blood by Pulse oximetry 97 % 97 % MEDENT ([facility] Body mass index (BMI) [Ratio] 36.0 kg/m2 36.0 k g/m2 MEDENT ([facility] [place] body weight 115 [lb_av] 115 [lb_av] MEDEN T ([facility] Body weight 203.00 [lb_av] 203.00 [lb_av] MEDEN T ([facility] Body height 63 [in_i] 63 [in_i] MEDENT ([facility] 5'3" Respiratory rate [...] Pulse oximetry 97 % 97 % MEDENT ([facility] Body mass index (BMI) [Ratio] 36.0 kg/m2 36.0 k g/m2 MEDENT ([facility] Body weight 203.00 [lb_av] 203.00 [lb_av] MEDEN T ([facility] Body height 63 [in_i] 63 [in_i] MEDENT ([facility] 5'3" Respiratory rate 13 /min 13 /min MEDENT ( [facility] Heart rate 82 /min 82 /min MEDDANIELLA ([facility] Body temperature 98.0 [degF] 98.0 [degF] EVELYN ([facility] Diastolic blood pressure 78 mm[Hg] 78 mm[Hg] EVELYN ([facility] Systolic blood pressure 124 mm[Hg] 124 mm[Hg] M EDDANIELLA ([facility] Patient Treatment Plan of Care Planned Activity Planned Date Details Description Data Source (s) Xarelto 20 MG 10/19/2020 12:00:00 AM EST [facility] ([facility]) Anastrozole 1 MG 10/19/2020 12:00:00 AM EST [facility] ([facility]) Oxybutynin Chloride ER 5 MG 10/19/2020 12:00:00 AM EST [facility] ([facility]) oxyCODONE-Acetaminophen 5-325 MG 10/19/2020 12:00:00 AM EST [facility] ([facility]) Omeprazole 20 MG 10/19/2020 12:00:00 AM EST [facility] ([facility]) Creon 10/19/2020 12:00:00 AM EST N [facility] ([facility]) Tylenol Extra Strength 500 MG 10/19/2020 12:00:00 AM EST [facility] ([facility]) Calcium 600 600 MG 10/19/2020 12:00:00 AM EST [facility] ([facility]) I20-Wubgfq 1 MG 10/19/2020 12:00:00 AM EST [facility] ([facility]) Vitamin D3 2000 UNIT 10/19/2020 12:00:00 AM EST [facility] ([facility]) Turmeric Curcumin 500 MG 10/19/2020 12:00:00 AM EST [facility] ([facility]) Biotin 49623 MCG 10/19/2020 12:00:00 AM EST [facility] ([facility]) Multivitamin 10/19/2020 12:00:00 AM EST N [facility] ([facility]) Vitamin C 500 MG 10/19/2020 12:00:00 AM EST [facility] ([facility]) PreserVision AREDS 10/19/2020 12:00:00 AM EST [facility] ([facility]) Collagen Hydrolysate 10/19/2020 12:00:00 AM EST [facility] ([facility]) 24 HR Oxybutynin chloride 5 MG Extended Release Oral T ablet 09/06/2020 12:00:00 AM EST [email or web address] ([facility])
--- NOTE | 2020-10-24 11:38 | REP ---
INDICATION: R/O DVT COMPARISON: None. TECHNIQUE: Real time compression and duplex Doppler interrogation of the left lower extremity deep venous system is performed. FINDINGS: The left common femoral, superficial femoral and popliteal veins are fully compressible with transducer pressure and demonstrate normal spontaneous and phasic flow, without evidence of deep venous thrombosis. IMPRESSION: No evidence of deep venous thrombosis of the left lower extremity femoral popliteal venous system. <Electronically signed by Jim Chadwick > 10/24/20 [id number]
[2020-10-24 12:15] LABS: BASO % 0.4 % (0.0-1.0); EOS # 0.2 10^3/uL (0.0-0.5); EOS % 3.6 % (0.0-3.0); HEMOGLOBIN 11.6 g/dl (12.0-15.5); LYMPH # 1.1 10^3/uL (1.5-5.0); LYMPH % 24.3 % (24.0-44.0); MEAN CORPUSCULAR HEMOGLOBIN 31.1 pg (27.0-33.0); MEAN CORPUSCULAR HGB CONC 32.2 g/dl (32.0-36.5); MEAN CORPUSCULAR VOLUME 96.5 fl (80.0-96.0); MONO # 0.3 10^3/uL (0.0-0.8); MONO % 6.6 % (2.0-8.0); NEUTROPHILS % 64.7 % (36.0-66.0); PLATELET COUNT, AUTOMATED 387 10^3/uL (150-450); RED BLOOD COUNT 3.73 10^6/uL (4.00-5.40); WHITE BLOOD COUNT 4.7 10^3/uL (4.0-10.0)
--- NOTE | 2020-10-24 12:21 | REP ---
INDICATION: PAIN SWELLING COMPARISON: None. TECHNIQUE: Four views left ankle. FINDINGS: There is no evidence of acute fracture, dislocation, or intrinsic bone disease.There is mild to moderate spurring of the inferior calcaneus. The ankle mortise is anatomic. Soft tissue calcifications are seen anterior to the distal tibia. There are vascular calcifications noted. IMPRESSION: No fracture or dislocation. <Electronically signed by Jim Chadwick > 10/24/20 [id number]
[2020-10-24 12:26] LABS: INR 1.25
[2020-10-24 12:27] LABS: PARTIAL THROMBOPLASTIN TIME 31.3 SECONDS (24.2-38.5)
[2020-10-24 12:34] LABS: ALBUMIN 3.4 GM/DL (3.2-5.2); ALT/SGPT 67 U/L (12-78); BILIRUBIN,DIRECT 0.3 MG/DL (0.0-0.2); BILIRUBIN,TOTAL 0.6 MG/DL (0.2-1.0); BLOOD UREA NITROGEN 12 MG/DL (7-18); CALCIUM LEVEL 9.1 MG/DL (8.8-10.2); CARBON DIOXIDE LEVEL 28 MEQ/L (21-32); CHLORIDE LEVEL 105 MEQ/L (98-107); CREATININE FOR GFR 0.53 MG/DL (0.55-1.30); GLOMERULAR FILTRATION RATE > 60.0 (>45); GLUCOSE, FASTING 107 MG/DL (70-100); POTASSIUM SERUM 3.8 MEQ/L (3.5-5.1); SODIUM LEVEL 141 MEQ/L (136-145); TOTAL PROTEIN 6.7 GM/DL (6.4-8.2)
[2020-10-24 12:43] LABS: ERYTHROCYTE SEDIMENTATION RATE 44 mm/hr (0-30)
[2020-10-24] MEDS ORDERED: PERCOCET 5MG/325MG TAB PO ONE (13:00)
--- OUTSIDE RECORDS SUMMARY | 2020-10-24 13:00 | CCD ---
Author Author [facility] Organization [facility] Address Unknown Phone Unavailable Care Team Providers Care Green Material Value Added Assessor Name Role Phone FACUNDO QUINONEZLY Unavailable Unavailable [...] Clifton Prieto MD Unavailable Unavailable Fish, Clifton Priteo MD Unavailable Unavailable Fish, Clifton Prieto MD [...] (PATSY), Sade ATKINSON MD Unavailable Unavailab le MNAOHAR (PATSY), Sade ATKINSON MD Unavailable Unavailab le [...] Unavailable Srikanth, Soheila Dow MD Unavailable Unavailable Srikatnh, Soheila Dow MD Unavailable Unavailable Srikanth, Soheila Dow MD Unavailable Unavailable Srikanth, Soheila Dow MD Unavailable Unavailable Srikanth, Soheila Dow MD Unavailable Unavailable Srikanth, Soheila Dow MD Unavailable Unavailable Srikanth, Soheila Dow MD Unavailable Unavailable Srikanth, Soheila Dow MD Unavailable Unavailable Srikanth, Soheila Dow MD Unavailable Unavailable Srikanth, Soheila Dow MD Unavailable Unavailable Srikanth, Soheila Dow MD Unavailable Unavailable Srikanth, Soheila oDw MD Unavailable Unavailable Srikanth, Soheila Dow MD [...] is protected by Article 27-F of the [facility] Public Health law. If you continue you may have access to information: Regarding HIV / AIDS; Provided by facilities licensed or operated by the [facility] Office of Mental Health; or Provided by the [facility] Office for People With Developmental Disabilities. If such information is present, then the following [facility] mandated warning applies: This information has been [...] Source(s ) Tramadol Tramadol Tramadol active NETSMART ([facility]) Tree Nuts Tree Nuts Tree Nuts active NETSMART ([facility]) Fresh fruits and vegetables Fresh fruits and vegetables Fres h fruits and vegetables active NETSMART ([facility]) Morphine Morphine Morphine active NETSMART ([facility]) Family History Family Member Name Family Member Gender Family Member Status Date o f Status Description Data Source(s) Unknown Female Problem MEDENT ([facility]) Unknown Female Problem MEDENT ([facility]) Encounters Encounter Providers Location Date Indications Data Source(s ) 10/19/2020 12:00:00 AM EST - 021 05:23:35 PM EST NETSMART ([facility]) Office Visit Attender: Jeremy BAPTISTE Physical Therapy 02:00:00 PM EST MEDENT ([facility]) Outpatient Attender: TARYN GARNER MD [place] [facility] 10/2020 01:30:00 PM EST MEDENT ([facility] (WC 20ESGYN) 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 [address] [place] [address] 09/23/2020 12:00:00 AM EST eCW1 ([facility]) Outpatient Attender: IRINA BAPTISTE Physical Therapy 09/22/2020 07:30:00 AM EST MEDENT ([facility]) Attender: DEMETRIO KLINE) MDReferrer: Licha Duke MD 09/13/2020 08:21:01 PM EST [facility] (WC 20ESGYN) 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 [address] [place] [address] 09/06/2020 12:00:00 AM EST eCW1 ([facility]) Outpatient Attender: Conner Shaver MD Physical Therapy 08/05/2020 0 7:45:00 AM EST MEDENT ([facility]) Outpatient Attender: LEAH Pickett/David/Edvin/Melina blackwood 08/01/2020 08:15:00 AM EST MEDENT ([facility]) Outpatient Attender: IRINA BAPTISTE Physical Therapy 07/25/2020 02:30:00 PM EST MEDENT ([facility]) Outpatient Attender: TARYN GARNER MD [place] [facility] 01:00:00 PM EST MED[facility] ([facility]) Outpatient Referrer: Roslyn KOENIGANTHONY-SJP.ANTHONY 07/03 12:00:00 AM EST - 07/18/2020 12:46:00 PM EST [facility] Outpatient [address] [facility] [address] 07/15/2020 12:00:00 AM EST eCW1 ([facility]) Outpatient Attender: Roslyn Jerez MDReferrer: RAVEN CISNEROSANTHONY-SJP.ANTHONY 07/14/2020 12:00:00 AM EST - 07/14/2020 11:55:07 AM EST [facility] OFFICE OUTPATIENT VISIT 15 MINUTES Attender: IRINA BAPTISTE Physical Therapy 07/08/2020 01:00:00 PM EST MEDENT ([facility]) (BC FU) Breast Center Follow Up [address] [place] [address] 07/01/2020 12:00:00 AM EDT eCW1 ([facility]) Unknown [address] [facility] [address] 07/01/2020 12:00:00 AM EDT eCW1 ([facility]) Outpatient [address] [facility] [address] 06/29/2020 12:00:00 AM EDT eCW1 ([facility]) Office Visit, Est Pt., Level 4 PC [address] [place] [address] 06/15/2020 12:00:00 AM EDT eCW1 ([facility]) Unknown [address] [facility] [address] 06/15/2020 12:00:00 AM EDT eCW1 ([facility]) (BC FU) Breast Center Follow Up [address] [place] [address] 06/13/2020 12:00:00 AM EDT eCW1 ([facility]) (BC FU) Breast Center Follow Up [address] [place] [address] 06/06/2020 12:00:00 AM EDT eCW1 ([facility]) Unknown [address] [facility] [address] 06/04/2020 12:00:00 AM EDT eCW1 ([facility]) (BC FU) Breast Center Follow Up [address] [place] [address] 05/30/2020 12:00:00 AM EDT eCW1 ([facility]) (WC PO) WCenter Post Op [address] [place] [address] 05/25/2020 12:00:00 AM EDT eCW1 ([facility]) Outpatient Attender: TARYN GARNER MD [facility] 11:30:00 AM EDT MEDENT ([facility] Outpatient [address] [facility] [address] 05/13/2020 12:00:00 AM EDT eCW1 ([facility]) Unknown [address] [facility] [address] 04/27/2020 12:00:00 AM EDT eCW1 ([facility]) Attender: DEMETRIO VILLELA ([place]) MDReferrer: Licha Duke MD 04/26/2020 08:20:08 PM EDT [facility] Attender: DEMETRIO VILLELA ([place]) MDReferrer: Licha Duke MD 04/26/2020 08:20:08 PM EDT [facility] Attender: DEMETRIO KLINE) MDReferrer: Licha Duke MD 04/26/2020 08:20:08 PM EDT [facility] Outpatient Attender: Blayne ShaverReferrer: Blayne Shaver EMERGENCY ROOM-[facility] 04/26/2020 11:57:00 AM EDT - 04/26/2020 11:57:00 AM EDT [facility] Outpatient Attender: TRAVIS QUINONEZ [id number] 04/25/2020 09:50:5 9 AM EDT [facility] Unknown [address] [facility] [address] 04/18/2020 12:00:00 AM EDT eCW1 ([facility]) Emergency Attender: SHAKILA Friedman: Blayne sharif 03/22/2020 08:20:00 AM EDT - 03/22/2020 08:26:00 AM EDT [facility] pitnh Patient discharged. Outpatient Attender: IRINA BAPTISTE Physical Therapy 03/10/2020 02:15:00 PM EDT MEDENT ([facility]) [place] [address] [facility] [address] 03/09/2020 12:00:00 AM EDT eCW1 ([facility]) Outpatient [address] [facility] [address] 03/07/2020 12:00:00 AM EDT eCW1 ([facility]) Unknown [address] [facility] [address] 03/02/2020 12:00:00 AM EDT eCW1 ([facility]) Unknown [address] [facility] [address] 02/29/2020 12:00:00 AM EDT eCW1 ([facility]) Outpatient Referrer: IRINA BAPTISTE 02/25/2020 06:08 :00 AM EDT [facility] Unknown [address] [facility] [address] 02/15/2020 12:00:00 AM EDT eCW1 ([facility]) [place] [address] [facility] [address] 02/11/2020 12:00:00 AM EDT eCW1 ([facility]) [place] [address] [facility] [address] 02/10/2020 12:00:00 AM EDT eCW1 ([facility]) Outpatient [address] [facility] [address] 01/27/2020 12:00:00 AM EDT eCW1 ([facility]) Unknown [address] [facility] [address] 01/20/2020 12:00:00 AM EDT eCW1 ([facility]) Outpatient Attender: JOHN MICHEL MD Physical Therapy 01:45:00 PM EDT MEDENT ([facility]) Outpatient Attender: Conner Shaver MD Physical Therapy 12/03/2019 0 1:00:00 PM EDT MEDENT ([facility]) Outpatient Attender: TARYN GARNER MD [place] [facility] 10/2019 08:45:00 AM EDT MEDENT ([facility] Outpatient Attender: IRINA BAPTISTE Physical Therapy 10/28/2019 08:15:00 AM EST MEDENT ([facility]) Outpatient Referrer: IRINA BAPTISTE 09/17/2019 05:04 :00 PM EST [facility] Outpatient Attender: TARYN GARNER MD [place] [facility] 10/2019 01:00:00 PM EST MEDENT ([facility] Emergency Attender: Je HERRING EMERGENCY ROOM-ER 0 03/25/2017 05:24:00 PM EDT - 03/05/2017 07:49:00 PM [facility] Emergency Attender: Je HERRING 05:49:00 PM EDT - 11/24/2016 07:42:00 PM [facility] Emergency Attender: Je HERRING 05:49:00 PM EDT - 05/17/2016 08:33:00 PM [facility] Emergency Attender: SHAKILA BAPTISTE EMERGENCY ROOM-ER 11/03/2015 03:26:00 AM EST - 11/03/2015 07:24:00 AM [facility] Emergency Attender: LIBERTAD BAPTISTE 08/08 10:34:00 PM EST - 08/08/2015 11:30:00 PM [facility] Emergency Attender: SHAKILA BAPTISTE 11:59:00 PM EDT - 03/30/2015 12:52:00 AM EDT [facility] Immunizations Vaccine Date Status Description Data Source(s) New in 2012. IIV4 07/19/2020 01:00:00 PM EST completed MEDENT ([facility] Medications Medication Brand Name Start Date Product Form Dose Route Admi nistrative Instructions Pharmacy Instructions Status Indications Reaction Description Data Source(s) Oxybutynin Chloride ER 5 MG Oxybutynin Chloride ER 10/19/2020 12:00 :00 AM EST 5.0 {mg} completed NETSMART ([facility]) oxyCODONE-Acetaminophen 5-325 MG oxyCODONE-Acetaminophen 12:00:00 AM EST 0 {mg} completed NETSMAR T ([facility]) Omeprazole 20 MG Omeprazole 10/19/2020 12:00:00 AM EST 20.0 {mg} completed NETSMART ([facility]) Collagen Hydrolysate Collagen Hydrolysate 10/19/2020 12:00:00 AM ES T 1.0 {asd} completed NETSMART ([facility]) Tylenol Extra Strength 500 MG Tylenol Extra Strength 10/19/2020 12:00:00 AM EST 500.0 {mg} completed NET SMART ([facility]) PreserVision AREDS PreserVision AREDS 10/19/2020 12:00:00 AM EST 1.0 {tablet} completed NETSMART ( [facility]) Creon Creon 10/19/2020 12:00:00 AM EST 02613.0 {unit} c ompleted NETSMART ([facility]) Vitamin C 500 MG Vitamin C 10/19/2020 12:00:00 AM EST 500.0 {mg} completed NETSMART ([facility]) N61-Tkmxjd 1 MG O44-Evojoq 10/19/2020 12:00:00 AM EST 1.0 {mg} completed NETSMART ([facility]) Calcium 600 600 MG Calcium 600 10/19/2020 12:00:00 AM EST 600.0 {mg} completed NETSMART ([facility]) Turmeric Curcumin 500 MG Turmeric Curcumin 10/19/2020 12:00:[address] 500.0 {mg} completed NETSMART ([facility]) Vitamin D3 2000 UNIT Vitamin D3 10/19/2020 12:00:00 AM EST 2000. 0 {unit} completed NETSMART ([facility]) Multivitamin Multivitamin 10/19/2020 12:00:00 AM EST 1.0 {tablet } completed NETSMART ([facility]) Biotin 47801 MCG Biotin 10/19/2020 12:00:00 AM EST 41342.0 {mcg } completed NETSMART ([facility]) Anastrozole 1 MG Anastrozole 10/19/2020 12:00:00 AM EST 1.0 {mg} completed NETSMART ([facility]) Xarelto 20 MG Xarelto 10/19/2020 12:00:00 AM EST 20.0 {mg} completed NETSMART ([facility]) 20 mg 10/15/2020 12:00:00 AM EST [...] Hibiclens 10/03/2020 12:00:00 AM EST active MEDENT ([facility]) 1 mg 09/16/2020 12:00:00 AM EST tablet [...] active Oxybutynin Chloride ER 5 MG eCW1 ([facility]) 24 HR Oxybutynin chloride 5 MG Extended Release Oral Tablet Oxybutynin Chloride ER 5 MG Oxybutynin Chloride ER 5 MG 09/06/2020 12:00:00 AM EST 1.0 {tablet} suspended Oxybutynin Chloride ER 5 MG eCW1 ([facility]) 600 mg 08/12/2020 12:00:00 AM EST [...] MG Oral Lozenge Vitamin B-12 active MEDENT ([facility]) 5 mg 05/26/2020 12:00:00 AM EDT [...] 5 DAYS PRIOR TO SURGERY SOLD: 08/28/2019 [facility] 4 % 08/27/2019 12:00:00 AM EST liquid 118 APPLY TO SKIN IN SHOWER OR BATH DAILY FOR 5 DAYS APPLY TO SKIN IN SHOWER OR BATH DAILY FOR 5 DAYS SOLD: 08/28/2019 [facility] Mupirocin 0.02 MG/MG Nasal Ointment [Bactroban] Bactroban Na remi 07/15/2019 12:00:00 AM EST completed MEDENT ([facility] chlorhexidine gluconate 40 MG/ML Medicated Liquid Soap [Hibi clens] Hibiclens 07/15/2019 12:00:00 AM EST TOPICAL completed MEDENT ([facility] ) Insurance Providers Payer name Policy type / Coverage type Policy ID Covered green party ID Covered green party's relationship to frances Policy Frances Plan Information OCT[place] CLAIM ADMIN WORK COMP [id number] SP [id number] MEDICARE BLUE PPO [id number] SP [id number] MEDICARE [id number] SP [id number] BCBS [place] HMO [id number] SP [id number] [place]BS [place] PPO 302/307 [id number] SP [id number] HMO BLUE [id number] SP [id number] MEDICARE BLUE PPO 306 [id number] SP [id number] [place]ARE [id number] [place] MED[place]ARE [id number] [place] HMO PPO POS [id number] [place] HMO PPO POS [id number] [place] INDEMNITY [id number] MEDICARE BLUE PPO [id number] SP [id number] MEDICARE [id number] Janine [id number] EXCELLUS BCBS MEDICARE [id number] Janine [id number] MEDICARE [id number] Janine [id number] EXCELLUS BCBS MCR HMO [id number] S [id number] EXCELLUS BCBS B [id number] S [id number] POMCO [id number] S [id number] EXCELLUS MEDICARE BLUE PPO G [id number] Self [id number] NCA COMP INS [id number] S [id number] BCBS HMO BLUE [id number] S [id number] POMCO [id number] S [id number] EXCELLUS BCBS MCR HMO [id number] S [id number] EXCELLUS BCBS B [id number] S [id number] MEDICARE BLUE PPO 306 [id number] SP [id number] BCBS HMO BLUE [id number] S [id number] BCBS HMO BLUE [id number] S [id number] NCA [id number] S [id number] BLUE CROSS BLUE SHIELD MCR - RECURRING HM [id number] 18 [id number] MEDICARE -RECURRING HM [id number] 18 [id number] BLUE CROSS BLUE SHIELD MCR -OP HM [id number] 18 [id number] EXCELLUS [place] MEDICARE HM [id number] 18 [id number] MEDICARE PART A -RECURRING [id number] 18 [id number] BLUE CROSS BLUE SHIELD -RECURRING [id number] 18 [id number] Ghi/Emblem HLTH (pr) Medigap Part B [id number] Family Depende nt 734606259 Ghi FHP-(DO Not Use) Medigap Part B [id number] Self [id number] [place]ig[place] B [id number] Self [id number] Blue Shield MCR Advantage Commercial [id number] Self [id number] [place] (pr) Medigap Part B [id number] Self [id number] [employer] Claims (WC) Workers Compensation [id number] Self [id number] Ghi/Emblem HLTH (pr) Medigap Part B [id number] Family Depende nt 775970425 Ghi FHP-(DO Not Use) Medigap Part B [id number] Self [id number] [place] Commercial [id number] Self [id number] Ghi/Emblem HLTH (pr) Medigap Part B 722356844 Family Depende nt 165217302 Ghi FHP-(DO Not Use) Medigap Part B [id number] Self [id number] [place] [id number] Self [id number] Ghi/Emblem HLTH (pr) Medigap Part B 003951593 Family Depende nt 602476156 Ghi FHP-(DO Not Use) Medigap Part B [id number] Self [id number] [place] Commercial [id number] Self [id number] Ghi/Emblem HLTH (pr) Medigap Part B 648823447 Family Depende nt 310018584 Ghi FHP-(DO Not Use) Medigap Part B [id number] Self [id number] [place] Commercial [id number] Self [id number] Ghi/Emblem HLTH (pr) Medigap Part B 240034710 Family Depende nt 245465871 Ghi FHP-(DO Not Use) Medigap Part B [id number] Self [id number] [place] Commercial [id number] Self [id number] Ghi/Emblem HLTH (pr) Medigap Part B 254295963 Family Depende nt 142111940 Ghi FHP-(DO Not Use) Medigap Part B [id number] Self [id number] [place] Commercial [id number] Self [id number] Ghi/Emblem HLTH (pr) Medigap Part B 836424541 Family Depende nt 158562044 Ghi FHP-(DO Not Use) Medigap Part B [id number] Self [id number] [place] Commercial [id number] Self [id number] BCBS [place] HMO [id number] SP [id number] Ghi/Emblem HLTH (pr) Medigap Part B 150106170 Family Depende nt 655113981 Ghi FHP-(DO Not Use) Medigap Part B [id number] Self [id number] [place] Commercial [id number] Self [id number] Ghi/Emblem HLTH (pr) Medigap Part B 094738246 Family Depende nt 056216581 Ghi FHP-(DO Not Use) Medigap Part B [id number] Self [id number] [place] Commercial [id number] Self [id number] Ghi/Emblem HLTH (pr) Medigap Part B 018536617 Family Depende nt 683072731 Ghi FHP-(DO Not Use) Medigap Part B [id number] Self [id number] [place] Commercial [id number] Self [id number] Ghi/Emblem HLTH (pr) Medigap Part B 760872224 Family Depende nt 801170796 Ghi FHP-(DO Not Use) Medigap Part B [id number] Self [id number] [place] Commercial [id number] Self [id number] HMO BLUE [id number] SP [id number] ANSI-Commercial [id number] Ghi/Emblem HLTH (pr) Medigap Part B 999277582 Family Depende nt 315251972 Ghi FHP-(DO Not Use) Medigap Part B [id number] Self [id number] [place] Commercial [id number] Self [id number] Ghi/Emblem HLTH (pr) Medigap Part B 901899024 Family Depende nt 834381572 Ghi FHP-(DO Not Use) Medigap Part B [id number] Self [id number] [place] Commercial [id number] Self [id number] Ghi/Emblem HLTH (pr) Medigap Part B 448612557 Family Depende nt 024090537 Ghi FHP-(DO Not Use) Medigap Part B [id number] Self [id number] [place] Commercial [id number] Self [id number] BLUE CROSS BLUE SHIELD -O/P [id number] 18 [id number] Ghi/Emblem HLTH (pr) Medigap Part B 760463444 Family Depende nt 684289307 Ghi FHP-(DO Not Use) Medigap Part B ACY55093Q13 Self [id number] [place] Commercial [id number] Self [id number] Ghi/Emblem HLTH (pr) Medigap Part B 402895568 Family Depende nt 142901984 Ghi FHP-(DO Not Use) Medigap Part B [id number] Self [id number] [place] Commercial [id number] Self [id number] Ghi/Emblem HLTH (pr) Medigap Part B 922795123 Family Depende nt 074391263 Ghi FHP-(DO Not Use) Medigap Part B [id number] Self [id number] [place] Commercial [id number] Self [id number] Ghi/Emblem HLTH (pr) Medigap Part B 927509281 Family Depende nt 208773152 Ghi FHP-(DO Not Use) Medigap Part B [id number] Self [id number] [place] Commercial [id number] Self [id number] EXCELLUS BCBS B [id number] S YNC [id number] Ghi/Emblem HLTH (pr) Medigap Part B 852362924 Family Depende nt 848634036 Ghi FHP-(DO Not Use) Medigap Part B SVP61379F90 Self [id number] [place] Commercial [id number] Self [id number] BCBS [place] PPO 302/307 [id number] SP [id number] Ghi/Emblem HLTH (pr) Medigap Part B 359501747 Family Depende nt 750884609 Ghi FHP-(DO Not Use) Medigap Part B FVT60671L15 Self [id number] [place] Commercial [id number] Self [id number] Ghi/Emblem HLTH (pr) Medigap Part B 666412672 Family Depende nt 393392306 Ghi FHP-(DO Not Use) Medigap Part B [id number] Self [id number] [place] Commercial [id number] Self [id number] Ghi/Emblem HLTH (pr) Medigap Part B 296526301 Family Depende nt 897197556 Ghi FHP-(DO Not Use) Medigap Part B QRL52098C36 Self [id number] [place] Commercial [id number] Self [id number] Ghi/Emblem HLTH (pr) Medigap Part B 250298274 Family Depende nt 575766381 Ghi FHP-(DO Not Use) Medigap Part B YXM50965A05 Self [id number] [place] Commercial [id number] Self [id number] Ghi/Emblem HLTH (pr) Medigap Part B 397620770 Family Depende nt 594104397 Ghi FHP-(DO Not Use) Medigap Part B RPW21348M29 Self [id number] [place] Commercial [id number] Self [id number] Ghi/Emblem HLTH (pr) Medigap Part B 426914811 Family Depende nt 232370719 Ghi FHP-(DO Not Use) Medigap Part B [id number] Self [id number] [place] Commercial [id number] Self [id number] Ghi/Emblem HLTH (pr) Medigap Part B 648486057 Family Depende nt 504467416 Ghi FHP-(DO Not Use) Medigap Part B GTL98695W42 Self [id number] [place] Commercial [id number] Self [id number] Ghi/Emblem HLTH (pr) Medigap Part B 243615262 Family Depende nt 179541121 Ghi FHP-(DO Not Use) Medigap Part B [id number] Self [id number] [place] Commercial [id number] Self [id number] POMCO [id number] SP [id number] Ghi/Emblem HLTH (pr) Medigap Part B 895761217 Family Depende nt 670404766 Ghi FHP-(DO Not Use) Medigap Part B [id number] Self [id number] [place] [id number] Self [id number] Ghi/Emblem HLTH (pr) Medigap Part B 897748290 Family Depende nt 894339853 Ghi FHP-(DO Not Use) Medigap Part B [id number] Self [id number] [place] Commercial [id number] Self [id number] Ghi/Emblem HLTH (pr) Medigap Part B 751033398 Family Depende nt 360762103 Ghi FHP-(DO Not Use) Medigap Part B IFL74016R46 Self [id number] [place] Commercial [id number] Self [id number] Ghi/Emblem HLTH (pr) Medigap Part B 596262778 Family Depende nt 738072720 Ghi FHP-(DO Not Use) Medigap Part B MWQ86663A85 Self [id number] [place] Medigap Part B [id number] Self [id number] [place] CLAIMS -RECURRING [id number] Ghi/Emblem HLTH (pr) Medigap Part B 585773793 Family Depende nt 872665550 Ghi FHP-(DO Not Use) Medigap Part B [id number] Self [id number] [place] Medigap Part [place] [id number] Self [id number] Ghi/Emblem HLTH (pr) Medigap Part B 546422210 Family Depende nt 866469287 Ghi FHP-(DO Not Use) Medigap Part B GHL45229F65 Self [id number] [place] Medigap Part B [id number] Self [id number] [facility] HMO/PPO/POS [id number] 0 [id number] Ghi/Emblem HLTH (pr) Medigap Part B 025589086 Family Depende nt 326454241 Ghi FHP-(DO Not Use) Medigap Part B WLW80455C35 Self [id number] [place] Part [place] [id number] Self [id number] Ghi/Emblem HLTH (pr) Medigap Part B 596995037 Family Depende nt 711015452 Ghi FHP-(DO Not Use) Medigap Part B KWC55751V86 Self [id number] [place]ig[place] Part [place] [id number] Self [id number] Ghi/Emblem HLTH (pr) Medigap Part B [id number] Family Depende nt [id number] Ghi FHP-(DO Not Use) Medigap Part B [id number] Self [id number] [place] B [id number] Self [id number] [employer] [place] PPO 302/307 [id number] SP [id number] Ghi/Emblem HLTH (pr) Medigap Part B [id number] Family Depende nt [id number] Ghi FHP-(DO Not Use) Medigap Part B [id number] Self [id number] [place] B [id number] Self [id number] Ghi/Emblem HLTH (pr) Medigap Part B [id number] Family Depende nt [id number] Ghi FHP-(DO Not Use) Medigap Part B [id number] Self [id number] [place] B [id number] Self [id number] Ghi/Emblem HLTH (pr) Medigap Part B 549945333 Family Depende nt [id number] Ghi FHP-(DO Not Use) Medigap Part B [id number] Self [id number] [place] B [id number] Self [id number] EXCELL[employer] BCBS B [id number] S [id number] ONE CALL CARE MANAGEMENT O [id number] S [id number] POMCO PPO O [id number] S [id number] POMCO [id number] SP [id number] Octavio Claims (WC) Workers Compensation Self OCTAVIO CLAIMS -RECURRING [id number] [phone] [id number] [facility] WC [id number] S [id number] [employer] Claims (WC) Workers Compensation Self [employer]OM[employer] [id number] Janine [id number] [employer]OM[employer]-RECURRING [id number] Ghi/Emblem HLTH (pr) Medigap Part B Family Depende nt Ghi FHP-(DO Not Use) Medigap Part B Self Pomco (pr) Commercial Self [id number] Problems, Conditions, and Diagnoses Code Display Name Description Problem Type Effective Dates Data Source(s) Z47.1 Aftercare following joint replacement israel rgery Aftercare following joint replacement surgery Problem 10/17/2020 12:00:00 AM EST NETSMART ([facility]) M17.12 Unilateral primary osteoarthritis, left knee Unilateral primary osteoarthritis, left knee Problem 10/17/2020 12:00:00 AM EST NETSMAR T ([facility]) N39.3 Incontinence Incontinence in female Problem 07/15/2020 12:00:00 AM EST eCW1 ([facility]) I51.7 [id number] Cardiomegaly Problem 07/01/2020 12:00:00 AM EDT eCW1 ([facility]) Z46.89 [id number] Encounter for fitting and adjustment of p essary Problem 06/15/2020 12:00:00 AM EDT eCW1 ([facility]) N81.10 [id number] Pelvic organ prolapse quantification stag e 4 cystocele Problem 06/15/2020 12:00:00 AM EDT eCW1 ([facility]) C50.411 [id number] Malignant neoplasm o f upper-outer quadrant of right female breast Problem 06/06/2020 12:00:00 AM EDT eCW1 ([facility]) C50.911 [id number] Malignant neoplasm o f right female breast, unspecified estrogen receptor status, unspecified site of breast Problem 0 02/15/2020 12:00:00 AM EDT eCW1 ([facility]) C50.911 [id number] Malignant neoplasm of unspecifie d site of right female breast Problem 01/27/2020 12:00:00 AM EDT eCW1 ([facility]) I51.7 Cardiomegaly Cardiomegaly Diagnosis 07/14/2020 10:26:58 A M EST [facility] E56.9 Vitamin deficiency, unspecified VITAMIN DEFICIENCY, UN SPECIFIED Diagnosis 04/26/2020 11:57:00 AM [facility] R10.31 Right lower quadrant pain RIGHT LOWER QUADRANT PAIN Di agnosis 04/26/2020 11:57:00 AM [facility] 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 Diagnosis 04/26/2020 11:57:00 AM [facility] 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 Diagnosis 04/26/2020 11 :57:00 AM [facility] R19.7 Diarrhea, unspecified DIARRHEA, UNSPECIFIED Diagnosis 04/26/2020 11:57:00 AM [facility] K21.9 Gastro-esophageal reflux disease without esophagitis GASTRO-ESOPHAGEAL REFLUX DISEASE WITHOUT Diagnosis 04/26/2020 11:57:00 AM [facility] K44.9 Diaphragmatic hernia without obstruction or gangrene DIAPHRAGMATIC HERNIA WITHOUT OBSTRUCTION Diagnosis 04/26/2020 11:57:00 AM [facility] l K22.2 Esophageal obstruction ESOPHAGEAL OBSTRUCTION Diagnosi s 04/26/2020 11:57:00 AM [facility] R13.10 Dysphagia, unspecified DYSPHAGIA, UNSPECIFIED Diagnosi s 04/26/2020 11:57:00 AM [facility] Y92.[address] in unspeci fied non-institutional (private) residence as the place of occurrence of the external cause UNSP [facility] (PRIVATE) RESIDENC Diagnosis 03/22/2020 08:20:00 AM [facility] l X50.1XXA OVEREXERTION FROM PROLONGED STATIC OR AW KWARD POST OVEREXERTION FROM PROLONGED STATIC OR AWKWARD POST Diagnosis 03/22/2020 08:20:00 AM [facility] Y93.89 Activity, other specified ACTIVITY, OTHER SPECIFIED Di agnosis 03/22/2020 08:20:00 AM [facility] Z79.899 [facility] [place] [facility] drug therapy O THER [facility] (CURRENT) DRUG THERAPY Diagnosis 03/22/2020 08:20:00 AM [facility] l M77.9 Enthesopathy, unspecified ENTHESOPATHY, UNSPECIFIED Di agnosis 03/22/2020 08:20:00 AM [facility] M75.81 Other shoulder lesions, right shoulder O THER SHOULDER LESIONS, RIGHT SHOULDER Diagnosis 03/22/2020 08:20:00 AM [facility] l S49.91XA Unspecified injury of right shoulder and upper arm, initial encounter UNSP INJURY OF RIGHT SHOULDER AND UPPER ARM, INIT ENCNTR Diagnosis 03/22/2020 08:20:00 AM [facility] Surgeries/Procedures Procedure Description Date Indications Data Source(s) ARTHRP KNE CONDYLE&PLATU MEDIAL&LAT CMPRTS 10/14/2020 12:00:00 AM EST MEDENT ([facility]) ARTHRP KNE CONDYLE&PLATU MEDIAL&LAT CMPRTS 10/14/2020 12:00:00 AM EST MEDENT ([facility]) Electrocardiogram Complete 10/05/2020 12:00:00 AM EST MED[facility] ([facility] Injection (SC)/(Im) 10/05/2020 12:00:00 AM EST MEDENT ([facility] INJECTION 1 TENDON SHEATH/LIGAMENT APONEUROSIS 021 12:00:00 AM EST MED[facility] ([facility] ) RADIOLOGIC EXAM KNEE COMPLETE 4/MORE VIEWS 08/05/2020 12:00:00 AM EST MEDENT ([facility]) RADEX ANKLE COMPLETE MINIMUM 3 VIEWS 07/25/2020 12:00: 00 AM EST MED[facility] ([facility] ) APPLICATION SHORT LEG CAST BELOW KNEE-TOE 07/08/2020 1 2:00:00 AM EST MEDENT ([facility]) RADEX ANKLE COMPLETE MINIMUM 3 VIEWS 07/08/2020 12:00: 00 AM EST MEDENT ([facility]) Electrocardiogram Complete 05/16/2020 12:00:00 AM EDT MEDENT ([facility] INJECTION SINGLE TENDON ORIGIN/INSERTION 03/10/2020 12 :00:00 AM EDT MEDENT ([facility]) ARTHROCENTESIS ASPIR&/INJECTION MAJOR JT/BURSA 020 12:00:00 AM EDT MED[facility] ([facility] ) RADEX FOOT COMPLETE MINIMUM 3 VIEWS 12/07/2019 12:00:0 0 AM EDT MEDENT ([facility]) RADIOLOGIC EXAM KNEE COMPLETE 4/MORE VIEWS 12/03/2019 12:00:00 AM EDT MEDENT ([facility]) INJECTION SINGLE TENDON ORIGIN/INSERTION 10/28/2019 12 :00:00 AM EST MED[facility] ([facility] ) ARTHROCENTESIS ASPIR&/INJECTION MAJOR JT/BURSA 020 12:00:00 AM EST MED[facility] ([facility]) Results ID Date Data Source [id number] 10/09/2020 10:30:00 AM EST [facility] Name Value Range Interpretation Code Description Data Noreen rce(s) Supporting Document(s) SARS coronavirus 2 RNA Not Detected [facility] [place] This lab was ordered by [facility] and reported by [facility]. ID Date Data Source [id number] 10/03/2020 12:05:00 PM EST MEDENT ([facility]) Name Value Range Interpretation Code Description Data Noreen rce(s) Supporting Document(s) Erythrocyte sedimentation rate by Westergren method 16 mm/hr 0-30 [facility] ([facility]) ID Date Data Source [id number] 10/03/2020 12:05:00 PM EST [facility] ([facility]) Name Value Range Interpretation Code Description Data Noreen rce(s) Supporting Document(s) White Blood Count 4.6 10 4.0-10.0 [facility] ([facility]) Red Blood Count 4.47 10 4.00-5.40 [facility] ([facility]) Hemoglobin 13.9 g/dL 12.0-15.5 MED[facility] ([facility]) Hematocrit 42.8 % 36.0-47.0 [facility] ([facility]) Mean Corpuscular HGB Conc 32.5 g/dL 32.0-36.5 [facility] ([facility]) Mean Corpuscular Hemoglobin 31.1 pg 27.0-33.0 [facility] ([facility]) Mean Corpuscular Volume 95.7 fl 80.0-96.0 M EDENT ([facility]) Neutrophils % 64.8 % 36.0-66.0 [facility] ([facility]) Platelet Count, Automated 240 10 150-450 MED[facility] ([facility] ) Red Cell Distribution Width 11.9 % 11.5-14.5 [facility] ([facility]) Lymph % 24.9 % 24.0-44.0 [facility] ([facility]) [place] % 7.4 % 0.0-5.0 [facility] Baso % 0.7 % 0.0-1.0 [facility] ([facility]) Eos % 2.2 % 0.0-3.0 [facility] ([facility]) Immature Granulocyte % 0.0 % 0-3.0 [facility] ([facility]) Nucleated Red Blood Cell % 0.0 % 0-0 MED E[facility] ([facility]) Neutrophils # 3.0 10 1.5-8.5 [facility] ([facility]) Lymph # 1.2 10 1.5-5.0 [facility] ([facility]) [place] # 0.3 10 0.0-0.8 [facility] ([facility] Eos # 0.1 10 0.0-0.5 [facility] ([facility] Baso # 0.0 10 0.0-0.2 [facility] ([facility] ID Date Data Source [id number] 10/03/2020 12:05:00 PM EST MEDENT ([facility]) Name Value Range Interpretation Code Description Data Noreen rce(s) Supporting Document(s) Glucose, Fasting 107 mg/dL 70-100 MED[facility] ([facility]) Blood Urea Nitrogen 14 mg/dL 7-18 [facility] ([facility]) Glomerular Filtration Rate Laboratory test result MEDENT ([facility]) <content>Units are mL/min/1.73 m2</content>
<content></content>
<content>Chronic Kidney Disease Staging per NKF:</content>
<content></content>
<content>Stage I & II GFR >=60 Normal to Mildly Decreased</content>
<content>Stage III GFR 30- 59 Moderately Decreased</content>
<content>Stage IV GFR 15-29 Severely Decreased</content>
<content>Stage V GFR <15 Very Little GFR Left</content>
<content>ESRD GFR <15 on RECONDITIONER</content>
<content></content> Creatinine For GFR 0.64 mg/dL 0.55-1.30 MEDENT ([facility]) Potassium Serum 4.8 meq/L 3.5-5.1 [facility] ([facility]) Chloride Level 105 meq/L 98-107 [facility] ([facility] Sodium Level 142 meq/L 136-145 [facility]) Anion Gap 5 meq/L 8-16 [facility] ([facility] Carbon Dioxide Level 32 meq/L 21-32 [facility] ([facility] Calcium Level 9.9 mg/dL 8.8-10.2 [facility] ([facility]) Alt/SGPT 24 U/L 12-78 [facility] ([facility] Ast/Sgot 18 U/L 7-37 [facility] ([facility] Alkaline Phosphatase 110 U/L 45-117 [facility] ([facility] Bilirubin,Total 0.6 mg/dL 0.2-1.0 [facility] ([facility]) Albumin 3.6 GM/DL 3.2-5.2 [facility] ([facility] Total Protein 6.9 GM/DL 6.4-8.2 [facility] ([facility]) Albumin/Globulin Ratio 1.1 1.2-2.2 [facility] ([facility]) ID Date Data Source [id number] 10/03/2020 12:05:00 PM EST MEDENT ([facility]) Name Value Range Interpretation Code Description Data Noreen rce(s) Supporting Document(s) Prothrombin Time 12.9 s 12.5-14.3 [facility] ([facility]) Inr 0.95 [facility] ([facility]) THERAPUTIC HUMAN INR VALUES INDICATIONS NORMAL RANGES PROPHYLAXIS/TREATMENT OF: VENOUS THROMBOSIS 2.0-3.0 PULMONARY EMBOLISM 2.0-3.0 PREVENTION OF SYSTEMIC EMBOLISM FROM: TISSUE HEART VALVES 2.0-3.0 ACUTE MYOCARDIAL INFARCTION 2.0-3.0 VALVULAR HEART DISEASE 2.0-3.0 ATRIAL FIBRILLATION 2.0-3.0 MECHANICAL VALVES(HIGH RISK) 2.5-3.5 RECURRENT MYOCARDIAL INFARCTION 2.5-3.5 ID Date Data Source [id number] 10/03/2020 12:05:00 PM EST [facility] ([facility] Name Value Range Interpretation Code Description Data Noreen rce(s) Supporting Document(s) Erythrocyte sedimentation rate by Westergren method 16 mm/hr 0-30 Normal (applies to non-numeric results) MED[facility] ([facility] ID Date Data Source [id number] 10/03/2020 12:05:00 PM EST MEDENT ([facility] Name Value Range Interpretation Code Description Data Noreen rce(s) Supporting Document(s) White Blood Count 4.6 10 4.0-10.0 Normal (applies to non-numeri c results) MEDENT ([facility] Red Blood Count 4.47 10 4.00-5.40 Normal (applies to non-numeric results) [facility] ([facility] Hemoglobin 13.9 g/dL 12.0-15.5 Normal (applies to non-numeric resul ts) [facility] ([facility] Mean Corpuscular Volume 95.7 fl 80.0-96.0 Normal ( applies to non-numeric results) MED[facility] ([facility] ) Mean Corpuscular Hemoglobin 31.1 pg 27.0-33.0 Norm al (applies to non-numeric results) [facility] ([facility] ) Hematocrit 42.8 % 36.0-47.0 Normal (applies to non-numeric resul ts) MEDENT ([facility] Red Cell Distribution Width 11.9 % 11.5-14.5 Norm al (applies to non-numeric results) [facility] ([facility] ) Mean Corpuscular HGB Conc 32.5 g/dL 32.0-36.5 Normal (applies to non-numeric results) [facility] ([facility] ) Platelet Count, Automated 240 10 150-450 Normal (applies to non-numeric results) [facility] ([facility] ) Lymph % 24.9 % 24.0-44.0 Normal (applies to non-numeric resul ts) MEDENT ([facility] [place] % 7.4 % 0.0-5.0 Above high normal [facility] ([facility] Neutrophils % 64.8 % 36.0-66.0 Normal (applies to non-numeric re sults) MEDENT ([facility] Baso % 0.7 % 0.0-1.0 Normal (applies to non-numeric resul ts) MEDENT ([facility] Immature Granulocyte % 0.0 % 0-3.0 Normal (applies to non-n umeric results) [facility] ([facility] Eos % 2.2 % 0.0-3.0 Normal (applies to non-numeric resul ts) MEDENT ([facility] Lymph # 1.2 10 1.5-5.0 Below low normal MEDENT ( [facility] Nucleated Red Blood Cell % 0.0 % 0-0 Normal (applies to n on-numeric results) MED[facility] ([facility] Neutrophils # 3.0 10 1.5-8.5 Normal (applies to non-numeric re sults) [facility] ([facility] Eos # 0.1 10 0.0-0.5 Normal (applies to non-numeric resul ts) MEDENT ([facility] Baso # 0.0 10 0.0-0.2 Normal (applies to non-numeric resul ts) MED[facility] ([facility] [place] # 0.3 10 0.0-0.8 Normal (applies to non-numeric resul ts) [facility] ([facility] ID Date Data Source [id number] 10/03/2020 12:05:00 PM EST MEDENT ([facility] Name Value Range Interpretation Code Description Data Noreen rce(s) Supporting Document(s) Glucose, Fasting 107 mg/dL 70-100 Above high normal M EDENT ([facility] Blood Urea Nitrogen 14 mg/dL 7-18 Normal (applies to non-nume mindy results) [facility] Creatinine For GFR 0.64 mg/dL 0.55-1.30 Normal (applies to non -numeric results) MED[facility] ([facility] Glomerular Filtration Rate Laboratory test result Normal (applies to non- numeric results) [facility] ([facility] ) <content>Units are mL/min/1.73 m2</content>
<content></content>
<content>Chronic Kidney Disease Staging per NKF:</content>
<content></content>
<content>Stage I & II GFR >=60 Normal to Mildly Decreased</content>
<content>Stage III GFR 30- 59 Moderately Decreased</content>
<content>Stage IV GFR 15-29 Severely Decreased</content>
<content>Stage V GFR <15 Very Little GFR Left</content>
<content>ESRD GFR <15 on RECONDITIONER</content>
<content></content> Chloride Level 105 meq/L 98-107 Normal (applies to non-numeric r esults) MEDENT ([facility] Sodium Level 142 meq/L 136-145 Normal (applies to non-numeric res ults) [facility] ([facility] Potassium Serum 4.8 meq/L 3.5-5.1 Normal (applies to non-numeric results) [facility] ([facility] Anion Gap 5 [...] 0.2-1.0 Normal (applies to non-numeric results) [facility] ([facility] Albumin 3.6 GM/DL 3.2-5.2 Normal (applies to non-numeric resul ts) [facility] ([facility] Albumin/Globulin Ratio 1.1 1.2-2.2 Below low normal [facility] ([facility] ID Date Data Source [id number] 10/03/2020 12:05:00 PM EST MEDENT ([facility] Name Value Range Interpretation Code Description Data Noreen rce(s) Supporting Document(s) Prothrombin Time 12.9 s 12.5-14.3 Normal (applies to non-numeric results) MED[facility] ([facility] Inr 0.95 Normal (applies to non-numeric resul ts) MED[facility] ([facility] THERAPUTIC HUMAN INR VALUES INDICATIONS NORMAL RANGES PROPHYLAXIS/TREATMENT OF: VENOUS THROMBOSIS 2.0-3.0 PULMONARY EMBOLISM 2.0-3.0 PREVENTION OF SYSTEMIC EMBOLISM FROM: TISSUE HEART VALVES 2.0-3.0 ACUTE MYOCARDIAL INFARCTION 2.0-3.0 VALVULAR HEART DISEASE 2.0-3.0 ATRIAL FIBRILLATION 2.0-3.0 MECHANICAL VALVES(HIGH RISK) 2.5-3.5 RECURRENT MYOCARDIAL INFARCTION 2.5-3.5 ID Date Data Source [id number] 09/23/2020 01:27:00 PM EST MEDENT ([facility] ) Name Value Range Interpretation Code Description Data Noreen rce(s) Supporting Document(s) Erythrocyte sedimentation rate by Westergren method Laboratory test result MEDENT ([facility]) ID Date Data Source [id number] 09/23/2020 01:25:00 PM EST MEDENT ([facility]) Name Value Range Interpretation Code Description Data Noreen rce(s) Supporting Document(s) Chest x-ray Laboratory test result MEDEN T ([facility] ) ID Date Data Source [id number] 09/15/2020 09:26:00 AM EST MEDENT ([facility] Name Value Range Interpretation Code Description Data Noreen rce(s) Supporting Document(s) Cancer Ag 15-3 [Units/volume] in Serum or Plasma 2.1 U/ML Normal (applies to non-numeric results) [facility] ([facility]) THE CA 15-3 ASSAY IS PERFORMED ON THE [employer] BY CHEMILUMINESCENCE AND SHOULD NOT BE COMPARED INTERCHANGEABLY WITH OTHER METHODS. IT SHOULD NOT BE USED ALONE A SCREENING TEST OR DIAGNOSIS FOR THE PRESENCE OR ABSENCE OF MALIGNANT DISEASE. PREDICTIONS OF DISEASE RECURRENCE SHOULD NOT BE BASED SOLELY ON VALUES OBTAINED FROM SERIAL PATIENT SERUM VALUES. Carcinoembryonic Ag [Mass/volume] in Serum or Plasma 1.1 ng/mL Normal (applies to non-numeric results) [facility] ([facility] THE CEA ASSAY IS PERFORMED ON THE [employer] BY CHEMILUMINESCENCE AND SHOULD NOT BE COMPARED INTERCHANGEABLY WITH OTHER METHODS. IT SHOULD NOT BE USED ALONE A SCREENING TEST OR DIAGNOSIS FOR THE PRESENCE OR ABSENCE OF MALIGNANT DISEASE. PREDICTIONS OF DISEASE RECURRENCE SHOULD NOT BE BASED SOLELY ON VALUES OBTAINED FROM SERIAL PATIENT SERUM VALUES. ID Date Data Source [id number] 09/15/2020 09:26:00 AM EST MEDDANIELLA ([facility] Name Value Range Interpretation Code Description Data Noreen rce(s) Supporting Document(s) Glucose, Fasting 108 mg/dL 70-100 Above high normal M EDENT ([facility] Blood Urea Nitrogen 12 mg/dL 7-18 Normal (applies to non-nume mindy results) [facility] Creatinine For GFR 0.66 mg/dL 0.55-1.30 Normal (applies to non -numeric results) [facility] ([facility] Glomerular Filtration Rate Laboratory test result Normal (applies to non- numeric results) [facility] ([facility] ) <content>Units are mL/min/1.73 m2</content>
<content></content>
<content>Chronic Kidney Disease Staging per NKF:</content>
<content></content>
<content>Stage I & II GFR >=60 Normal to Mildly Decreased</content>
<content>Stage III GFR 30- 59 Moderately Decreased</content>
<content>Stage IV GFR 15-29 Severely Decreased</content>
<content>Stage V GFR <15 Very Little GFR Left</content>
<content>ESRD GFR <15 on RECONDITIONER</content>
<content></content> Sodium Level 142 meq/L 136-145 Normal [...] [facility] ID Date Data Source [id number] 09/15/2020 09:26:00 AM EST MEDENT ([facility] Name Value Range Interpretation [...] Normal (applies to non-numeric re sults) [facility] ([facility] Platelet Count, Automated 233 10 150-450 Normal (applies to non-numeric results) [facility] ([facility] ) Red Cell Distribution Width 12.0 % 11.5-14.5 Norm al (applies to non-numeric results) [facility] ([facility] ) [place] % 10.4 % 0.0-5.0 Above high normal [facility] ([facility] Eos % 4.3 % 0.0-3.0 Above high normal [facility] ([facility] Lymph % 35.3 % 24.0-44.0 Normal (applies to non-numeric resul ts) [facility] ([facility] Baso % 1.0 % 0.0-1.0 Normal (applies to non-numeric resul ts) [facility] ([facility] Immature Granulocyte % 0.2 % 0-3.0 Normal (applies to non-n umeric results) [facility] ([facility] Nucleated Red Blood Cell % 0.0 % 0-0 Normal (applies to n on-numeric results) [facility] ([facility] Neutrophils # 2.0 10 1.5-8.5 Normal (applies to non-numeric re sults) [facility] ([facility] Lymph # 1.5 10 1.5-5.0 Normal (applies to non-numeric resul ts) [facility] ([facility] [place] # 0.4 10 0.0-0.8 Normal (applies to non-numeric resul ts) [facility] ([facility] Eos # 0.2 10 0.0-0.5 Normal (applies to non-numeric resul ts) [facility] ([facility] Baso # 0.0 10 0.0-0.2 Normal (applies to non-numeric resul ts) [facility] ([facility] ID Date Data Source [id number] 09/14/2020 09:15:00 AM EST [facility] Name Value Range Interpretation Code Description Data Noreen rce(s) Supporting Document(s) EGD [facility] WERKIe8yHaDJFrJnXGRoEvgLVFqzQArxQINoU3C3MQziPn7RXLuhmfSoUIFzCw5+YMJkHU6cjw9eNOJm gMy 9fTOAhJoogA3MkNZIgy30UPSEcFZzKIyKfNoKtZTOxYFG1KMY0SNR3HaKdMcigKP9oRAG6ARYkFNpoES ErWUVsKpVmNPCbIK5gVIphLXidTx2GSC2do6LfLKVdEYPoEyvKIGhyQCywAAXdJFQoXBSgC848tcRuJg 2HvAJiSCt7XNEzJpA8HZMeNvL4BSAtPy5fKeMmu1Sz P9ViJPr8M8iSJxoxX8DbLBpgPT1vYNC0WBVhZb4LmRjjBOmjNPOOG1plNuBqWGEnXWHBRf6+Pj4+DWVu WR7cdn12EBFps1UmVMv0D2M6sYQnG2HyB6BaFIAcaEHPh8nuHzQsVRF1BHXbDnreCV8ZVRQhqGVhXROe CRhzKV8giyTbyXW4CC8UnYxkVDSwCRBIKi8+Pi9QYX SmcwFpIlDgPZSyP62eqETraVHgNnmqLXEMWT1+JUJgEC9zik90MDBsy0BvTTz8K3vagcf3wZGdWSB2VD LwInUyUCRgHW2cAK8KkAC5oYLrUE9YoVIvNS2QuZBjIR6JP8PwZHF3Q0OwbHEkepUmF6KfUXWfLJPsw5 YwAW2PB3KBDGQxOGNwP5YesF6jY5FzU7QqD6Xaymrv SJCTGp6FeZB2pJFwBRAvD1refHgygZZuNQacF0CxcJHNUHFNy67rd88kbjLbDD1+r4RsSJDcFQy81iy8 ZVAcX/ksNIOCYny0AProLVPbSbCXps2cE5bjTsE7GHi2SfdrcCD6Y9xYxTYA4//fonl6fkj7cz/eD+/z 6EDUyh8+a4va1dYe1xMb9PPRGTwsERQOgDMCFGIA73 qyzDa1IDhjxVqbfBpE+ODpOVSUiSQmh8uR6E2Ij5JRwtYcMcL45+Hg1rye7hqx8fTv8+Lm/GgqXN7aj3 ZHQyfGwCDmfEv+lvP/GF75ZVqnuVgryjAOVwMLKdGXU+UfZ6KVPIPhTnyIJQ8gUUaHUoVwi8Jkk2H0LS CPDXiFAAS+QgQiISEi/u31+vqTBLHGab7T4MITJ2yS [file] Juan M+g29TUHKLq5S+5fHs06mBFT/Tbu6Zg/cKFv/5fh [file] gGrbSk/QeJPEWLO8ZvvdHq7++Jean-Claude/VBVJ51iV79NCSFB9obwFfsveYt64u6lXdSz7YOEGKlTqD/qZK7 [file] yBeSAGDxftRw4GWqKQRIZBv7PX/LR+T2R1OmX4R pbA/FpRF2TE6e3vmUV3cmpNLclK/x9GggGhfWYMLPMHqtmJndxVTm2BvbZiN6PDTSszYjzyg/6rTXl9y pXkdqp7fVV9fyfaXwsgGNrwzqf9YiiY1Kk6nthhsTNzHcxUJQPRbEilcT/3eeGn7H7V35i4Myxel4OTl /RRtBAI+cfGaDWJDuemgNBpgnEORGylVcactnbQbym [file] SlXmbwv72TwXR1Az5289CWTKrSNfbCE+olkV/Pr Internship/0MZACZuSTzCd8YFzNiTnWhSYKhL5s9wPDUratyGm [file] Xqa1O4g024GIxK5506EUg4bWY1hSelP2w6FaWdd9o4 8W09rv2y05ituJrPyGcPv2P5UNWZqe54t0FmX3rSc7cyv2n4z7UqwZBCk/3hWAv38v78eQi8ehI+rKH6 mG/Y9/Jgn3lyHl+q++ESpofwQs+KRPxisJhCEQXcu4Cn6LuZ2Ngp/RZE771Butofou1HxRIG/DW+9wiZ ubdBwmVZw8sFnv2pI3qAgAgVPS4/ElcllJyoYAUdVT +c+4zdtWW4q3UMo/cKjkeKJ6tHuZ2fLy+jGg0tDvRo026r3wnKOCojZ+D9nDfiKprKu9HSBm15koW84A SkFwdgsKvvC97m5JW+zcxUr4KVkCu/C8mRjMtzcgtz4xRAQfM2NBuxSIBA+pF3xRd1VDZ0VNuVcQy/Ch RW2hqUgB/5iTHfSPd04UhxduRKADoQW2FieM7/wPoh 54YbyMrHKrciV3sLf9wIvwlp6fD7VdKJrg5Cc1wCKkH5iZvxAigY4EZ2fL/5KdDDkFuA39wORKpDSLuF QZ+ihbPI5pWI5sdwJE+KfP446UyzyhsyBCi4pliygyseM3e5ksin548vR06k63b00huza8UKqoajPnAi z/Ky1E10dDDVQvr8e9mkpBxzhl/oPzjoMWFVQKx7l/ o5mCq5g72C+guhffO6pUp9GOGlp4AZYtelcAzVEkOKhOs+vb68fEAJh/RtnQhUCDXH2hxHkadBeZMdtw miML1KOmfjyuKChOJdMqcm4iJUeBzkhQVWCQXfSf+GPCa1m/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+nmapY8c5hlcWnKLmzR5rLm4zrYXA [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] 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/mHAEInAkH66wQ2KfLsOL0uan47ObuPZ4zWCEEL 7Z6+jv0/mYwWbCdGrbHyyy33oeOw+mjbpzer8hlA1PPwdc0S50ZY3msBSTZRCdU9NFi8DzHIExM3ZyXQ 11SJAdFxv64zB08zb5X3HQk4rZr4DpEm9eGI0N2sCqjAlyYuOFgaibbQXOZeKcBjYUUbcTqB915XugqO +1fK5XJ8w3GkGkVNzgYRBgBXbISbaBfwR5J8mctJV+ 5YDev2zfDBViTTGrwoTsEQ4gIRDbNYMBM55rpZl/4VP21o/C8jJtHRA3dmT6hoOSHQtL4xYfOeUPkMbj uE3fdbuK306Af6nqh/SJIAg1PdMqNqe8Wo/mt5H+A4/CaPmzf/9uKAm2oSSlhYhtoH6yC7wPJ2ybMzZa 0Hmc90LMjUDD8QfypCYdWMyDSZHehKVdqjh4sgFFGS P77LuOGSEo8d6v+EEaLSBIdMX+ogkmsw9NJo36j0FrwKbIf2+ZIv3h+CswlUxTUSk0HukgjgDZGheOEZ 9o6WttrFfHtjYX3vBQ3EgKM/idhFIRK6hpfPM80xhU7x1y3LzTNvhqWB+sa5EJVNLis5Jn4/7RJ0ejWz aB3udYsNYO9DnS4JIbZHvv4p4fAkijBZKJeqBdfHGL xA+7yntbtqvIAEmGRlu1up+tSnlp+o4TyE4i74OIApTR/bC3kTs4r7H5+cdzl7YMJv8rCWUbQyr0o55g 9C/fyuK/MKe2jOOtFgWjAjureEV1DXgw51i96AtgzrPhSDR4J2VNjFQbn55NmPdDz7+Colleen+y2tgK9zsN 2o5rAzsPlHlhU5XUs0304LmJ9FI2c39vP10C213NaO [file] 2aIJoxeVMIssjR6Z4pKmAXgaUlE/CONSULTING INTERN/sqhsX2c3JNh79jyNcnqBZtfRAI4698Jne3Rk4m/enA40rvF8 [file] VGk2S+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+hH4uvSIlxnAFGstb9nzMRjxPJRMV+KklU7Cjp1e2loGT1gm4txjrGqGc/0J3Vhkh8Qcl6c [file] oDco29HoTu5c7aEhQn/technical account representative/jg3z39BZyZ/lfxfqZOZV [file] pbx installer/MTUtBmZ7kRtRW+gS83QBBkiFDTHgIQJMJScGaQ [file] artist l4RdcchpimJvbG9nv/jVLdyBoV8AtgQn3HjAOqiW5nS6NupImJpqkecTE2Q9ZXZxZKueiKYpnWOnK+OY gUsmutBnfSiwiOn/kEu8LarkrmtLcha4qyKHqKRErX6cQib/726Z6MEY2/Zbq5no4ZWd0vqm+gA+TGQY oOv1zZ2i1JI8h+5jt7+9nPg/31N7iUTH3lPkpNkBYx L2SwNaTZ9EvVNPsrtY0Rmf80E6GF34SolzKskI4RakiRjykMOtGGM6pyP6uEm1R+AZv1qstoE4G1m0Wb EpAnmfq6R802y5rqWmjtna8wWpCJ7BZ/H3ud+Qs3Al7KnAJaHWY1ejlDsjiAWx7A2qardhupjCpMFfF1 DhDga/PPqRO8Hx2Fjyzjw72fGnpc/Delia/YlrJEiqQQ [file] AIRCRAFT PNEUDRAULIC SYSTEMS MECHANIC+ypSLV2Alj73eDVXVKFt25Mz7mmxRWex97FDjLvY1Op6AeN8p2YFkoZiOcyYzHkO0O31JmgvVsihNi [file] kR6r19Qv145yoOH8z6j4cyF+t985x8IXEWvR80zb+m q+s9uYFhX83NYHtDFHKjFnplrk4v1f2r5kdJk3Tg0rbSIc3klgvEDQeCav6ypmo0xkXj/+Dfv49GoXQo YpgrhyRvtJ2ROhjrSXRkcFHg1mftaAZZ6VpCVeap64FEnc4knMu/44/6w/3BJjLfJkbZ0TcTCD8mZfL+ rcoU6W2s7iCRXhL/ly4VxUb/q5FL88er/wgUCSEF5E i3h9aD941TwfnHHdiKiBcmAQuL3fQqcGt1xhf1/6Jw7j14NXg80gzFE0m/V0cdSFcpNCgMrWKFQBXhIL /8QfEG89wg6QOKe/lgdfBivNdGztCMnT6JcH0R3OkeYdi+D6gf3M/zbwfZt0t0gpKFQB2Sj3r+vpu96o DZjcBWzbCsrCxwH3j6xoeCSiAL2imEqV8WHNmNEKuf tSbmP+TyZ0NsNc0PlRRE68Hm4lVPW8dsQE6pJXdFp1x5Ohh/TaDDIzM1IPxelcJebZZaRF5RDQ2px5Sz GZOoSREzh4VvGVd2J3ysslt6bMJoCJ0+r7LpSTNlMYkeAhTpOqUqITNyRqnoZHYpLLYadGrfHF5hAzJQ wngFIRytbtNjiDYnLI0NNH3mb0GaQZEjYRLiw7RpWP y5F9SpuMXxjcViUrstfNBFJBVyAEZgVDBsP6UaBDTfO9oPRPx6CBXiRyLhABSzMMCvIUkZSnB8V3XwWR x3QWN5GnD2C6N+CRt6YoC3XYM7RcY0FONzAFNZAsDJMnPZZAIVKovcQtlAPO9jS7Ztd5RcSGAfHZFyFS 6zjrCbTQAmVt6AgNrzDPE2Q3Q2aKYxW2pHSFOiQuXc VVH7MZIzWe8elONbKR1JYpzrR4QlSCMiQNWHVQXFUee+BJGMBWDyNZBkPpwNJp+DyCPmQJJjhTOYPAAi EzxCTm3135XmrwJYRXVWV6mNSzEqMZB7haZyzZ5HUI1sd2CcOW8Hz6NpzzY7tbEpLWd3JiT1LrEIBsOx RU9G ID Date Data Source [id number] 09/09/2020 12:36:00 PM EST [facility] Name Value Range Interpretation Code Description Data Noreen rce(s) Supporting Document(s) SARS coronavirus 2 RNA Not Detected [facility] lab was ordered by [facility] and reported by [facility]. ID Date Data Source [id number] 08/12/2020 07:20:00 AM EST [facility] ([facility]) Name Value Range Interpretation Code Description Data Noreen rce(s) Supporting Document(s) White Blood Count 3.7 10 4.0-10.0 Below low normal [facility] Hemoglobin 13.4 g/dL 12.0-15.5 Normal (applies to non-numeric resul ts) [facility] ([facility]) Red Blood Count 4.26 10 4.00-5.40 Normal (applies to non-numeric results) [facility] ([facility]) Mean Corpuscular Hemoglobin 31.5 pg 27.0-33.0 Norm al (applies to non-numeric results) [facility] ([facility]) Mean Corpuscular Volume 97.9 fl 80.0-96.0 Above high normal [facility] ([facility]) Hematocrit 41.7 % 36.0-47.0 Normal (applies to non-numeric resul ts) [facility] ([facility]) Red Cell Distribution Width 12.0 % 11.5-14.5 Norm al (applies to non-numeric results) [facility] ([facility]) Mean Corpuscular HGB Conc 32.1 g/dL 32.0-36.5 Normal (applies to non-numeric results) [facility] ([facility]) Platelet Count, Automated 247 10 150-450 Normal (applies to non-numeric results) [facility] ([facility]) Nucleated Red Blood Cell % 0.0 % 0-0 Normal (applies to n on-numeric results) [facility] ([facility]) ID Date Data Source [id number] 08/12/2020 07:20:00 AM EST [facility] ([facility] Name Value Range Interpretation Code Description Data Noreen rce(s) Supporting Document(s) Red Blood Count 4.26 10 4.00-5.40 Normal (applies to non-numeric results) [facility] ([facility] White Blood Count 3.7 10 4.0-10.0 Below low normal M [facility] ([facility] Mean Corpuscular Volume 97.9 fl [...] [facility] ID Date Data Source [id number] 08/11/2020 09:27:00 AM EST [facility] ([facility] Name [...] high normal [facility] ([facility] [place] % 9.1 % 0.0-5.0 Above high normal [facility] ([facility] Nucleated Red Blood Cell % 0.0 % 0-0 Normal (applies to n on-numeric results) [facility] ([facility] Baso % 0.8 % 0.0-1.0 Normal (applies to non-numeric resul ts) [facility] ([facility] Immature Granulocyte % 0.3 % 0-3.0 Normal (applies to non-n umeric results) [facility] ([facility] [place] # 0.4 10 0.0-0.8 Normal (applies to [...] Normal (applies to non-numeric resul ts) [facility] ([facility] ID Date Data Source [id number] 08/07/2020 09:00:00 AM EST [facility] Name Value Range Interpretation Code Description Data Noreen rce(s) Supporting Document(s) SARS coronavirus 2 RNA [facility] This lab was ordered by [facility] and reported by [facility]. ID Date Data Source [id number] 07/19/2020 09:30:00 AM EST [facility] Name Value Range Interpretation Code Description Data Noreen rce(s) Supporting Document(s) [facility] AUGCVz5hQpNUVgErAITeClcKWYetAIbsTBSaX9C4WKlzZy1XBZywwhOwNRRaUn5+KWBgCB4ejb7vKIUs gMy [file] 2N9bz+Maria Ines+ok7vc01uOgV8XJESZoAGvXDPeCCo80P5 [file] rO1xCqBaXjM/technical account [file] s68npLcxBSYLRFpKUxT2x4tG05zcAsp9eEoPPgSNkH/kQGDI2XY51y2jYnLc5I/Xg9AZDlFIN2U1+psychology associate [file] eo3jz4BAjzlDZr16rIlgNflvyPKRZnoTrZbcYjiOe3eF11iL3WjkVddWB5fAmiqUctzSr0Q/date night sitter+lUuY [file] j+fh781vJXlN6MqGaUd1igsZwa+ke7EQLrCWSv/client service associate+0/1/YwCPwsUi6w3GBdrcmJ7ggdnDA51u3+PPo fctqHweS2+7LRn37CPlaX31VLAc8zpnZ7r9g6EUbs2 pFKR31PNysyOxk17XI8HBaNZPCMZRda66jfSS5dYQEt5Vr/A0XJQ0wLJUcdawuJN8jXr7fwOZSk19wl0 0BxbnZMZ7x6rdY9W8jR5vq+qel/SrmnOYO7VEIVJ8fHAU7M7GAQXArpEwVz06AQvhL/n0FSW+nhl4E33 ORWlR1WmGxB4/Mn+0n353E5ZdCVHEvcCB4eSGiR5fM w6b8HJXZZKuguRyLixB0UNwfPNeeiST0dJqknegvvI12rbbqmFNBG2Tnj+j5Q/NvWAz7sYQALPI2+4Zw N3KGBcziNj7qNNdYETNUprN1EgK3ye617Gt5CJ8v9/FAGgQbwIikByxHSMPiTUMN94bLDkNJNJikcs7T R8pGW3hoW9/ijvlAYiLoo0bSee+LymiinoXwKdo69a LQyYf5Sykal/I8ZryNJ+qU417Qx8yNNiZR139XN5HFL6ulJ+5nFpFTTmF3RwlaVt/Kg9yBTWbVvuzk7R z4u/F8IasO7JcCTYpL866DW2XJrzo/ZTwTcQu+dui7ld46qFjPRn1jjnC2h5WgxkMPUKiBcjt16DyaYb 2uSzDtuHmjTuMpTSv01St4Di1DAK1dhpWgr/n9PKo8 KEE9EDFfkLZOPhXSfPW9tZ+AJiv5dfiq9keQoW5SutAPkYy6GrSwo+/V3OgjEYPcGzS4F3z2eyiO2K+U hhMEDlqDpl+cyYxM+burdick+D5DmVL1pKFWwgONY8SKwH0ZOd2d+0sAgViupk3Q9QJrc1gdNvGlPpETbYjyi [file] tfYDP+SMDKJOHvYbKj/AVQSu/Pr Internship/VjBijbEa+0YKpJ [file] G846rkY1PafU/1Eb3v+mNm3/education intern+/jg84sYT/5OJG7 [file] technical account representative+2qmgdZ3IBZ4xH8Kg9Ehjk6hGq3UCP+XQIAnWq16 [file] 8+AIRCRAFT PNEUDRAULIC SYSTEMS MECHANIC/Ba0OhwpXIQBx9/Yvfwpt+KX9bx0/4o0eHDI0sPwGRfzJPZll7FrJDGMYd5+UQ+Crra03cOOFS/7 [file] v4BjaCei1hibhss5Pn4shqgzHtQvqcg3DK/yzfxusS s7m2ahlfateGL2rliNWJEPzxmFa08hpHLPX/LApKTC6e5HAnHhSE2DPu50ccq8G46bROs6/lLpnEBNJa eXgFjgwDlJKQ7BlFuf5M5umffxRVHYkpJJW3SCFStJ6e1YuEdulCLxoeYLps/POrW1884SsIvgxf7hjg Sm1jvpJXUt3Ciy/ybCVi8JeJF6kyJkVzDHcs5XWnW0 /nxWxDfokleOuXqL/8Rd5+pOSOmScrxJVMguWJH8hIENGXckpB+UoB51OxFGwqnhYq8Kc/tJTrxb/LOP p0mP9GDWKCvvUzoh4EPZPBi4VuZrcDXgrS4PKuSbpPE6MdrzTvr16t9sAnVGPP2IchXyjxj7Vt9+UhmT rZ0QUw9wba334cj+8bax0e80kiToPGsW49o07XlKhw assurance manager+8NTpHgYf/3MJc8vuiPYQ/7812I4ae99bx9G2xpbO4dbqlaF2eic89aSTQb5+wcogl8YfIiyuIN/m [file] [facility]+mWi88/qNP4jW7aQk9hg4fi7Wt4wq+sg0AcEMhMzg4N6WS9ycNT1sB/ClsS3eN0isF2Opin3TAc [file] technical account representative+cMhgh4LtrPyQ7lm/PfVU6iTFF+4SIAWEhrUfwIn [file] IRJblIL1To3cHnTN97Fv4hU+spaSDRvU8tcIHz55x3F03x88R72bVRQ13VqbfmA0hz5LdRysCfqI/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 [file] WGGUpII4XZwyqU1CQoDWUKuySVtMTNp0ayU/Shay/r/W1f8D/gz6QJCwsu6U8zX+MwjGdOFsEFbQoWL+C8 zOMsbyZa8e0A39hzkl9UhRROwpc2aqnhsnD4fzGjKUM9ihgqaVu0mr6AE3hAmzVv1uVvQ3kSmFSiXxjY 8fw5hEy7ZOwrnXkNXg7ZPZTtn7vbfizdPK3oDeeKLk /kxcrswVqT6+XwoyQlCazmz4dkGCVbCx0Xx1plf2EEG89b8HEkixehg4yI2X9T9ExXL/g+eFd+oz8ZhE PlIIaYPJaH1pHk/N1dpNc9U4kuiPkwD5cFkYXYflbGgyXMVxDIZ0POSprnxBCIoarTYm0lYNTAq5Mo52 42bLPobF5XRhVc2vmLLe1mvZQcMP9Iy6HxPtRHe3P9 kT+rry5+YOhfurtssx8gt5PpyGYed4w2kt0fk9qXHAIsvhx9dFvkGBhHy9XRjae9JBac/UPQN+Ctlmc2 wouEkX89tJgkL4PgczL+3qd5P17OSGaQfEHqdocPbdXXEk+Qo1TlhgZkXAO/bQS1UzeiP1wY4/r1PdCv TKani7s4qnUZw1lNEZS1pJwLtxGkGHJ8eGMHiEvLEB C/tyEHsGlmq497J1pCJ6eIz8PSm7OP8TdGh1CJzfhZuEPDcLLFKB1uvh/UT6Q6Fc0P6GCapxONO5fprs K2zQOKxiuJBtkuNFlo336bVvdJVE+YfL8/Ship Painter Helper/2FrwHcdiWt7A+jQVdqcqKcy4BC2kIBGHuTrfQGNMCQ U3bJnwm+EZJRazmuYNqokz4NBZDxXivp/YZ5pEI3ZN Bj6MIuFghP5BEf+JXflBuxX7hZxswnvm7FcX//G2YZEfho2AHO0gsnjWNYkKbux7PL4h5xhMIRj+aUuW YCbfcoEB8HWfjTNvd8g21ufLYnq4wxKB/tifew/4B8tFQUuFUa0WjqAN0rlFdOYdZ2W5x85zgLC11ijQ YoWPQg5ZMr39Yo8LNyiqUX0XIWF9UN5SMR4daPMS19 8afztdCO0O3YJizcEZViOfrCVbsLikM9DL0j/xBa5L5VB4CzMIsHz2Zd3/+22Iru1znyBgpLB4OfGal7 ZqMwv7ZEFdl5KdaVx+Pr Internship+xU9k32izdyIsd69Wk6Q4hlLcLh+j0OhXJnETNy20PavS9cJMXEXm5xY0Ng6 [file] B1H7KwKII6m9gHp0BtRPwAO4QYMrHABsi0ACqKpadVmCszHQmL+José/x75BG9pcu5s4aL9EB8ta5G9OM [file] yJo1RLR+c1Jg+3lHOe3M06+/1dwgxyv4XO98SUzpxAN+sKfnazKeD+sgVeFNT463vbnJVNedVCrIx/Oanh EI1wew4+jCBeLAFM4UEMLJTyrjntKZN1AA3a63oeKH Cshb8UezO7h+zrUtOvImbN1dL3qtsR6s2tKVJ4q/YD7gzUDpJTQSMlVjDBukE+djiTjrsNP+V2as8EbB QI58fovo7F56+p9XsS99Cvxu+eXlEGbGE3ngfrA1WxsQoxXuX817Y5XhiZjaUMUp5drehrMKAqpzxBO0 v4JnIa21pU0wSFFq0yphrKAaITs/aAjFEU46lU+SXI 8IpT3GomPJlpPP9b7yj0K68vp0GllvM3Z890UxEBRnZyGjlGHj+q/8q36HJEftH6GAFD3NhlAmIHnh/e AcXZuIvJL+JNUI+f/OeV05D+wBOgoDPqrM/Swv1vv2Jr5lVwzUpsqtPgPyATa5S9Tqe5iv29ZWsbti82 MyNxQ62M+5kuR/0UBETZvqGo6BnmUvEg+5RoyO/pilot fuel 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 [file] medical inpatient services [file] V3D8Wpbp1/gWd95xdxD5HOgxdsmU99zcSrqevIP0WpNplaf3tsTSNt8wJUSR1u/remote inpatient coder/ec7oupHAnvnsi [file] signal circuit designer+9eOuPfbo2qNwupnuVplYBWlJ75un6Hqca0YJ2g [file] [employer]/UOInxGl8oVQtAuol3JUG7A26CUDLItxgEK0Amu1CDRdvJ6HxU5U6AXvNQ8JapxN1Cuo5Io8o5hLL [file] IfbLYrqXwuwC/jysjy0IuBENb9UH5weFCAI/rVfefyfB9Hu9QHswAY6/TqX/Jehovah's witness+vTm2LAX2609YZY9L [file] RmtbyQlRgG8sMWHU8heJIlafccZF0KSPqX8QYK+Jorge Luis [file] nfT8sRrNllNzmFms5kH3mCsTfU64w/w/administrative underwriter/Tc9vt7 [file] technical account representative+eLo68KvUrFA1YX7ynlGAzndAT5kKfi2IDXhxQg7EaazeXSGX9j1bUiR8d9ygBWc/Jggqej5qMIJkm [file] 3de/gshB++69MPryGLBLHXDS0F6U9bDkgBLKx+34+Cl0B/+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/VY1dVWxrcUgV9B1mkiCqOiowIdQ0Wy [file] ESTIMATOR LUMBER+Jzz2coS0KPVDTdKP+4ie/R39Zg1bDMw6thzKSU31g8+gMD+/yCQdZGmU/GfgaAggnoAu8lAqkiYX [file] 81K0VT6hUzI6INeNWfiEZONtGDRTs69t/commercial pilot+xex8f [file] zlPnUBehWkXhSmC7VQewLAOTJs== ID Date Data Source URINE CULTURE 07/15/2020 12:00:00 AM EST eCW1 ([facility]) Name Value Range Interpretation Code Description Data Noreen rce(s) Supporting Document(s) URINE CULTURE eCW1 ([facility]) ID Date Data Source UA URINALYSIS 07/15/2020 12:00:00 AM EST eCW1 ([facility]) Name Value Range Interpretation Code Description Data Noreen rce(s) Supporting Document(s) UA URINALYSIS eCW1 ([facility]) ID Date Data Source [id number] 07/13/2020 11:24:00 AM EST [facility] ([facility] Name [...] resul ts) [facility] ([facility] [place] % 7.1 % 0.0-5.0 Above high normal [...] Normal (applies to non-numeric re sults) [facility] ([facility] Lymph # 1.8 10 1.5-5.0 Normal (applies to non-numeric resul ts) [facility] ([facility] [place] # 0.4 10 0.0-0.8 Normal (applies to non-numeric resul ts) [facility] ([facility] Baso # 0.0 10 0.0-0.2 Normal (applies to non-numeric resul ts) [facility] ([facility] Eos # 0.1 10 0.0-0.5 Normal (applies to non-numeric resul ts) [facility] ([facility] ID Date Data Source [id number] 07/13/2020 11:24:00 AM EST [facility] Name Value Range Interpretation Code Description Data Noreen rce(s) Supporting Document(s) Cancer Ag 15-3 [Units/volume] in Serum or Plasma 5.6 U/ML Normal (applies to non-numeric results) [facility] ([facility]) THE CA 15-3 ASSAY IS PERFORMED ON THE [employer] BY CHEMILUMINESCENCE AND SHOULD NOT BE COMPARED INTERCHANGEABLY WITH OTHER METHODS. IT SHOULD NOT BE USED ALONE A SCREENING TEST OR DIAGNOSIS FOR THE PRESENCE OR ABSENCE OF MALIGNANT DISEASE. PREDICTIONS OF DISEASE RECURRENCE SHOULD NOT BE BASED SOLELY ON VALUES OBTAINED FROM SERIAL PATIENT SERUM VALUES. Carcinoembryonic Ag [Mass/volume] in Serum or Plasma 1.1 ng/mL Normal (applies to non-numeric results) [facility] ([facility] THE CEA ASSAY IS PERFORMED ON THE [employer] BY CHEMILUMINESCENCE AND SHOULD NOT BE COMPARED INTERCHANGEABLY WITH OTHER METHODS. IT SHOULD NOT BE USED ALONE A SCREENING TEST OR DIAGNOSIS FOR THE PRESENCE OR ABSENCE OF MALIGNANT DISEASE. PREDICTIONS OF DISEASE RECURRENCE SHOULD NOT BE BASED SOLELY ON VALUES OBTAINED FROM SERIAL PATIENT SERUM VALUES. ID Date Data Source [id number] 07/13/2020 11:24:00 AM EST [facility] ([facility] Name Value Range Interpretation [...] Normal (applies to non- numeric results) [facility] ([facility] ) <content>Units are mL/min/1.73 m2</content>
<content></content>
<content>Chronic Kidney Disease Staging per NKF:</content>
<content></content>
<content>Stage I & II GFR >=60 Normal to Mildly Decreased</content>
<content>Stage III GFR 30- 59 Moderately Decreased</content>
<content>Stage IV GFR 15-29 Severely Decreased</content>
<content>Stage V GFR <15 Very Little GFR Left</content>
<content>ESRD GFR <15 on RECONDITIONER</content>
<content></content> Sodium Level 142 meq/L 136-145 Normal (applies to non-numeric res ults) [facility] ( [facility] Potassium Serum 4.1 meq/L 3.5-5.1 Normal (applies to non-numeric results) [facility] ([facility] Chloride Level 106 meq/L 98-107 Normal (applies to non-numeric r esults) [facility] ([facility] Carbon Dioxide Level 31 meq/L 21-32 Normal (applies to non-num shakila results) [facility] ([facility] Calcium Level 9.4 mg/dL 8.8-10.2 Normal (applies to non-numeric re sults) [facility] ([facility] Anion Gap 5 meq/L 8-16 Below low normal [facility] ( [facility] Alkaline Phosphatase 100 U/L 45-117 Normal (applies to non-num shakila results) [facility] ([facility] Alt/SGPT 18 U/L 12-78 Normal (applies to non-numeric resul ts) [facility] ([facility] Ast/Sgot 15 U/L 7-37 Normal (applies to non-numeric resul ts) [facility] ([facility] Total Protein 6.9 GM/DL 6.4-8.2 Normal (applies to non-numeric re sults) [facility] ([facility] Bilirubin,Total 0.7 mg/dL 0.2-1.0 Normal (applies to non-numeric results) [facility] ([facility] Albumin 3.8 GM/DL 3.2-5.2 Normal (applies to non-numeric resul ts) [facility] ([facility] Albumin/Globulin Ratio 1.2 1.2-2.2 Normal (applies to non-n umeric results) [facility] ([facility] ID Date Data Source DIAGNOSTIC UNILATERAL MAMMO 06/03/2020 10:45:05 AM EDT eCW1 ([facility]) Name Value Range Interpretation Code Description Data Noreen rce(s) Supporting Document(s) DIAGNOSTIC UNILATERAL MAMMO eC W1 ([facility]) ID Date Data Source [id number] 05/24/2020 01:20:00 PM EDT [facility] ([facility], ) Name Value Range Interpretation Code Description Data Noreen rce(s) Supporting Document(s) Surgical pathology study Laboratory test result [facility] ([facility], ) <content>FINAL DIAGNOSIS</content>
< content></content>
<content>A-Right breast, [...] cm. The specimen is grossly</content>
<content> unremarkable. [employer] section is submitted in one.</content>
<content>-OA</content>
<content>05/25/2020 - 1456</content>
<content></content>
<content>Signed OLMAN ZAVALA MD 05/30/2020 0901</content>
<content></content> ID Date Data Source [id number] 05/24/2020 07:22:00 AM EDT EVELYN ([facility]) Name Value Range Interpretation Code Description Data Noreen rce(s) Supporting Document(s) Blood group antibody screen [Presence] in Serum or Valdemar sma Laboratory test result Normal (applies to non-numeric results) EVELYN ([facility]) Blood Type Laboratory test result Normal (applies to non-n umeric results) [facility] ([facility], ) ID Date Data Source [id number] 05/24/2020 07:22:00 AM EDT [facility] ([facility] Name Value Range Interpretation Code Description Data Noreen rce(s) Supporting Document(s) Blood Type Laboratory test result Normal (applies to non-n umeric results) [facility] ([facility] AB Screen (Indirect [place])Vis Laboratory test result Normal (applies to non- numeric results) [facility] ([facility] ) ID Date Data Source [id number] 05/19/2020 11:00:00 AM EDT [facility] Name Value Range Interpretation Code Description Data Noreen rce(s) Supporting Document(s) SARS coronavirus 2 RNA [facility] This lab was ordered by [facility] and reported by [facility]. ID Date Data Source [id number] 05/16/2020 12:22:00 PM EDT [facility] ([facility] Name Value Range Interpretation Code Description Data Noreen rce(s) Supporting Document(s) BUN 13 mg/dL 8-23 [facility] NORMAL RANGES Age [...] HCT IS 5% LESS SOURCE FOR DATA: [employer] 1800 OPERATION MANUAL( AUTOMATED BLOOD COUNTS AND [...] >32 mL/min Normal Glu 103 mg/dL 70-110 [facility] ([facility] NORMAL RANGES Age WBC RBC [...] HCT IS 5% LESS SOURCE FOR DATA: [employer] 1800 OPERATION MANUAL( AUTOMATED BLOOD COUNTS AND [...] >32 mL/min Normal BUN/Creatinine Ratio 21.9 CALC [facility] ([facility] NORMAL RANGES Age [...] HCT IS 5% LESS SOURCE FOR DATA: [employer] 1800 OPERATION MANUAL( AUTOMATED BLOOD COUNTS AND [...] HCT IS 5% LESS SOURCE FOR DATA: [employer] 1800 OPERATION MANUAL( AUTOMATED BLOOD COUNTS AND [...] >32 mL/min Normal Na 140 mmol/L 136-145 [facility] ([facility] NORMAL RANGES [...] HCT IS 5% LESS SOURCE FOR DATA: [employer] 1800 OPERATION MANUAL( AUTOMATED BLOOD COUNTS AND [...] >32 mL/min Normal K 3.9 mmol/L 3.5-5.1 [facility] ([facility] NORMAL RANGES Age WBC [...] HCT IS 5% LESS SOURCE FOR DATA: [employer] 1800 OPERATION MANUAL( AUTOMATED BLOOD COUNTS AND [...] CL 103.4 mmol/L 98.0-107.0 MEDDANIELLA ([facility] NORMAL RANGES Age WBC [...] HCT IS 5% LESS SOURCE FOR DATA: [employer] 1800 OPERATION MANUAL( AUTOMATED BLOOD COUNTS AND [...] >32 mL/min Normal Co2 28.0 mmol/L 22.0-29.0 [facility] ([facility] NORMAL RANGES Age WBC RBC HGB [...] HCT IS 5% LESS SOURCE FOR DATA: [employer] 1800 OPERATION MANUAL( AUTOMATED BLOOD COUNTS AND [...] >32 mL/min Normal CA 8.9 mg/dL 8.6-10.2 [facility] NORMAL RANGES Age [...] HCT IS 5% LESS SOURCE FOR DATA: [employer] 1800 OPERATION MANUAL( AUTOMATED BLOOD COUNTS AND [...] TP 5.9 g/dL 6.6-8.7 Below low normal [facility] ( [facility] NORMAL RANGES [...] HCT IS 5% LESS SOURCE FOR DATA: [employer] 1800 OPERATION MANUAL( AUTOMATED BLOOD COUNTS AND [...] >32 mL/min Normal Alb 4.0 g/dL 3.4-4.8 [facility] ([facility] NORMAL RANGES [...] HCT IS 5% LESS SOURCE FOR DATA: [employer] 1800 OPERATION MANUAL( AUTOMATED BLOOD COUNTS AND [...] above >32 mL/min Normal Globulin 1.9 CALC [facility] [...] HCT IS 5% LESS SOURCE FOR DATA: [employer] 1800 OPERATION MANUAL( AUTOMATED BLOOD COUNTS AND [...] HCT IS 5% LESS SOURCE FOR DATA: [employer] 1800 OPERATION MANUAL( AUTOMATED BLOOD COUNTS AND [...] Normal Alt (SGPT) 10 U/L 0-41 MEDDANIELLA ([facility] NORMAL RANGES [...] HCT IS 5% LESS SOURCE FOR DATA: [employer] 1800 OPERATION MANUAL( AUTOMATED BLOOD COUNTS AND [...] >32 mL/min Normal Alp 107.9 U/L 35-129 [facility] ([facility] NORMAL RANGES [...] HCT IS 5% LESS SOURCE FOR DATA: [employer] 1800 OPERATION MANUAL( AUTOMATED BLOOD COUNTS AND [...] mL/min Normal Osmolality-Calculated 280.5 [facility] ([facility] NORMAL RANGES Age [...] HCT IS 5% LESS SOURCE FOR DATA: [employer] 1800 OPERATION MANUAL( AUTOMATED BLOOD COUNTS AND [...] mL/min Normal Ast (Sgot) 18 U/L 0-40 [facility] ([facility] NORMAL RANGES Age WBC RBC HGB [...] HCT IS 5% LESS SOURCE FOR DATA: [employer] 1800 OPERATION MANUAL( AUTOMATED BLOOD COUNTS AND [...] >32 mL/min Normal Tbili 0.42 mg/dL 0.0-1.2 [facility] ([facility] NORMAL RANGES [...] >32 mL/min Normal Anion Gap 13 mmol/L [facility] ([facility] NORMAL RANGES Age [...] HCT IS 5% LESS SOURCE FOR DATA: [employer] 1800 OPERATION MANUAL( AUTOMATED BLOOD COUNTS AND [...] HCT IS 5% LESS SOURCE FOR DATA: [employer] 1800 OPERATION MANUAL( AUTOMATED BLOOD COUNTS AND [...] and above >32 mL/min Normal eGFR Non-Afr. Indian 95 # [facility] ([facility] [...] HCT IS 5% LESS SOURCE FOR DATA: [employer] 1800 OPERATION MANUAL( AUTOMATED BLOOD COUNTS AND [...] >32 mL/min Normal ID Date Data Source [id number] 05/16/2020 12:22:00 PM EDT MEDDANIE[facility] ([facility] Name Value Range Interpretation Code Description Data Noreen rce(s) Supporting Document(s) WBC 4.8 10E3/uL 4.1-10.9 MEDDANIELLA ([facility] NORMAL RANGES Age WBC [...] HCT IS 5% LESS SOURCE FOR DATA: [employer] 1800 OPERATION MANUAL( AUTOMATED BLOOD COUNTS AND [...] >32 mL/min Normal RBC 4.24 10E6/uL 4.20-6.30 VEELYN ([facility] NORMAL RANGES Age [...] HCT IS 5% LESS SOURCE FOR DATA: [employer] 1800 OPERATION MANUAL( AUTOMATED BLOOD COUNTS AND [...] >32 mL/min Normal HGB 13.6 g/dL 12.0-18.0 [facility] ([facility] [...] HCT IS 5% LESS SOURCE FOR DATA: [employer] 1800 OPERATION MANUAL( AUTOMATED BLOOD COUNTS AND [...] >32 mL/min Normal HCT 40.6 % 37.0-51.0 [facility] ([facility] NORMAL RANGES [...] HCT IS 5% LESS SOURCE FOR DATA: [employer] 1800 OPERATION MANUAL( AUTOMATED BLOOD COUNTS AND [...] MCH 32.1 pg 26.0-32.0 Above high normal [facility] ([facility] NORMAL RANGES Age [...] HCT IS 5% LESS SOURCE FOR DATA: [employer] 1800 OPERATION MANUAL( AUTOMATED BLOOD COUNTS AND [...] >32 mL/min Normal MCV 95.8 fL 80.0-97.0 [facility] ([facility] NORMAL RANGES [...] >32 mL/min Normal MCHC 33.5 g/dL 31.0-36.0 [facility] ([facility] NORMAL RANGES Age [...] HCT IS 5% LESS SOURCE FOR DATA: [employer] 1800 OPERATION MANUAL( AUTOMATED BLOOD COUNTS AND [...] >32 mL/min Normal PLT 248 10E3/uL 140-440 [facility] ([facility] NORMAL RANGES Age WBC [...] HCT IS 5% LESS SOURCE FOR DATA: [employer] 1800 OPERATION MANUAL( AUTOMATED BLOOD COUNTS AND [...] >32 mL/min Normal RDW-CV 11.7 % 11.5-14.5 [facility] ([facility] NORMAL RANGES Age [...] HCT IS 5% LESS SOURCE FOR DATA: [employer] 1800 OPERATION MANUAL( AUTOMATED BLOOD COUNTS AND [...] >32 mL/min Normal Lym% 30.2 % 10.0-58.5 [facility] ([facility] [...] HCT IS 5% LESS SOURCE FOR DATA: [employer] 1800 OPERATION MANUAL( AUTOMATED BLOOD COUNTS AND [...] HCT IS 5% LESS SOURCE FOR DATA: [employer] 1800 OPERATION MANUAL( AUTOMATED BLOOD COUNTS AND [...] >32 mL/min Normal Lym# 1.4 10E3/uL 0.6-4.1 [facility] ([facility] NORMAL RANGES Age WBC [...] HCT IS 5% LESS SOURCE FOR DATA: [employer] 1800 OPERATION MANUAL( AUTOMATED BLOOD COUNTS AND [...] >32 mL/min Normal MXD% 8.4 % 0.1-24.0 [facility] ([facility] NORMAL RANGES [...] HCT IS 5% LESS SOURCE FOR DATA: [employer] 1800 OPERATION MANUAL( AUTOMATED BLOOD COUNTS AND [...] >32 mL/min Normal Neut# 3.0 % 2.0-7.8 [facility] ([facility] NORMAL RANGES Age WBC RBC [...] HCT IS 5% LESS SOURCE FOR DATA: [employer] 1800 OPERATION MANUAL( AUTOMATED BLOOD COUNTS AND [...] >32 mL/min Normal MXD# 0.4 10E3/uL 0.0-1.8 [facility] NORMAL RANGES Age WBC [...] HCT IS 5% LESS SOURCE FOR DATA: [employer] DYN 1800 OPERATION MANUAL( AUTOMATED BLOOD COUNTS [...] >32 mL/min Normal MPV 9.6 fL 9.0-13.0 [facility] ([facility] NORMAL RANGES Age [...] IS 5% LESS SOURCE FOR DATA: NATALYA [employer] 1800 OPERATION MANUAL( AUTOMATED BLOOD COUNTS AND [...] >32 mL/min Normal ID Date Data Source [id number] 05/12/2020 07:30:00 AM EDT [facility] Name Value Range Interpretation Code Description Data Noreen rce(s) Supporting Document(s) EGD-dil [facility] GONQPw5oGuCPSbErQDLhPzuQNIzmRMtzQASkI8Q9FZulKr1ZPOyknwImWGMmOg3+YNRuZN7pni3bOIWx gMy 2qVTKoBmcgI3UwKKLap52ILIRkYLcREcPjMjPhARJfUDe2DITeAXE3DeFuQnihKY1tSGG5VWEeTPoaYU AtCFveTIQ5FBQmOc7fCAjcLLhoEt5CWT0rq6AyZTFnMLFbYcgHMFjoWWgxLIOtCDYlMRWtY506tqGbGx 5DaMIsDMy5DFGqYuD3GTVtCsX0GMZkCp5bVqTdt9Fo N3YfOKa1C2eBGliuG1NzZWowDN7gWGA8SSItMh4NnWsgPZfkMHGLG7ayDnZsRRLrPTYXQk2+Pj4+DWVu XV8aob36WFYrx3LtIQg9O7S0gTFbT1ZzH5SvIOWujLIVj6drUeYdFQE2EUPlRiezGB7EJSTwxJMgCCYo JTfuRE5zdcPceRY6SU9EtSwkOBHuNMMYFi3+Pi9QYX FzauFxFfPbFOQeD53fmORedRGqOytsWMEHKE6+WJToWN3bda49DRMwl3HlMCs3X9brguw4vUZgHOIjLF CrVtQuFLKoIK3jSY2YqMB5sVCiWT8FmBQrEC5SmREhHD7RU5WsFZM4P6JddPWncqGmX1DxGWDjKFUwu9 HxCK6NC9HWVAJhBNXhB2TjsL7eZ4KpH6ZiU4Cdkckk KDGTXm3DeVS7iLPqASExU0xnhUcinZNeSLuhO7GogCDOIGFUa39qi44ppvHeAY1+p8KjATXmKBt64vu9 ZVAcX/tuFLMGEyu7VWbsWCDaRvIPcy0fO2usTnI9BBv7EyacwPJ1S6hBbZVF7//gwen1kbe3fa/eD+/z 2TQSro5+c2sq7wMw8bJs2BRQBJuiERDHjNDMQGSD74 waqZq5FQvagMnarDyH+CXlBRLStBJfk3zF0J8Xi9AVijZgThV22+Wv8yex5puv3sRc8+Lm/ZtnXU7ym3 ZHQyfGwCDmfEv+lvP/YX61RBhowEaxfyQRGpZYWcCMO+UlB4QIILRaAxlVMH9pHXcBSnVlo5Jgx0I4BW CPDXiFAAS+QgQiISEi/u31+rdFZAFVdd0F5FEKM5tL [file] A6K7IA6Um8R+ZArhZyBvoZprbzNo0nzoMtlhr9k2MIKS9EoBg0JS6YWIOCoGBekxXoxwNNjQ2CX5++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 [file] +2SqtYC26ktu1KVuQcQT72WJwICwZ5hrkEgUV6lIkhWoU8fWTWfSxNKAFWty+Sadiq/bN9dG9NknvWJ+[employer] 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 SYSTEMS MECHANIC O5Qhbsj0mPMLS4LGLyxrEsUIpLFx50lW9k8wEi42oY jEeQAzsncgoXikg29WmQihHB6dFqxRQi3GkH+LwCzRFP4trB8aHJIL89tsQ59q2AUPa0zSRQs72D4xp5 ghJfC0az4jVWiG4vQe0+SFa/zeNAgWe9vtxqkFn7nsOL/azRQjx79KP4Ddg7+pryXe7X+/RBgsfg2hGB C34u0/tl0uGMztHgZ1YqwU/36CvXD6rFu79znxJ2hS 7oeFeTIdp3hmrEM2BP+6UcCANAccTrwwX4RbytL/XJSPXPB9iMxi+R+nackvjEyXpMxwewVwYXqcMRxY viVzzkiAqEItHUErX1bpFACo0bh8j/0VU36m9rFjRcLtgh5o7dOpGT5LHxz+hmkuEfqZnx3e6b72w8sU bIeVkP0q4XfInnICjN/6fYEOqg8rffbv4mC00XNHXb hHNTgR3MYuOZn3fzjP93eAYrkftYuYKw99B0lT0XDF6EGGjaQPGN9AN9gzl2cdvxvScauBCPoaetBADp RvmKNBjdwHWStXfAb5wLrXmERWBNg2OHmpzf7KT4s372cem5uNsnM1GFhFZvcw9DQC3vjGD4h2G7y1n7 9RMVSPxvwGsd8U9JIXuU0VHlNfl1+YnpPasVs/Mhvm gtEEH18A3wSRC0l7o658eOr7IHQ1i2jq/m7EvYBXoajH/DLrhdpgPGrFDC9A6Q0NirETnxAsKF2pkY6I W+4V+J07Xw/t8cdIQJvcmrkVPlgiB0JEYEO/+8TVp+c2Md8/4hbuvCfx6oWbnEx36iVDRWQiCVOP0rwm pNadlfghdJ3nZjGeT20HLTWUO5+7i+uwU0+BlhLCn3 8LnI7wcbwee817MgLxMzJPndcr2B15AJIveruaMWvqjozxEAnrRMrVLcP50vjpxneygXiXF7pxeCujhm [file] 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 ID Date Data Source [id number] 05/05/2020 12:11:00 PM EDT [facility] ([facility], ) Name Value Range Interpretation Code Description Data Noreen rce(s) Supporting Document(s) Surgical pathology study Laboratory test result [facility] ([facility], ) FINAL DIAGNOSIS Right breast, biopsy: Benign breast tissue with microcalcifications. Negative for malignancy. 05/06/2020 - 135 CLINICAL DIAGNOSIS Right breast CA 05/05/2020 - 1422 GROSS DIAGNOSIS Received in formalin labeled "right breast biopsy" and consists of a core fragment of tissue measuring from 0.5 to 2 cm. All in two. -OA 05/05/20201422 Signed OLMAN ZAVALA MD 05/06/2020 1356 ID Date Data Source [id number] 04/28/2020 09:16:00 AM EDT [facility] ([facility] Name Value Range Interpretation Code Description Data Noreen rce(s) Supporting Document(s) Laboratory test finding (navigational concept) Laboratory test result [facility] ([facility] Performed at: - [facility] [address] [id number] Entry Level Electrician: Lu Seay MD, Phone: [phone] Elastase.pancreatic [Mass/mass] in Stool 401 [facility] ([facility] <content>INFCE Result Units: ug Elast./g </content>
<content>Severe Pancreatic Insufficiency: <100</content>
<content>Moderate Pancreatic Insufficiency: 100 - 200</content>
<content>Normal: >200</content>
<content>Performed at: [facility]</content>
<content>[address] [place] [phone]</content>
<content>Entry Level Electrician: Toby Peralta MD, Phone: [phone]</content>
<content></content> ID Date Data Source [id number] 04/28/2020 09:16:00 AM EDT [facility] ([facility] Name Value Range Interpretation Code Description Data Noreen rce(s) Supporting Document(s) Laboratory test finding (navigational concept) Laboratory test result [facility] ([facility] No Campylobacter species isolated. Laboratory test finding (navigational concept) Laboratory test result [facility] ([facility] Laboratory test finding (navigational concept) Laboratory test r esult Above high normal [facility] ([facility] ) 05/04/20 1209: REMI/SHIG SCRN previously reported as: Preliminary report Laboratory test finding (navigational concept) Laboratory test r esult Above high normal [facility] ([facility] ) Aeromonas species 05/03/20 1205: SS RESULT1 previously reported as: Comment Microbiological testing to rule out the presence of possible pathogens is in progress. Heavy growth Laboratory test finding (navigational concept) Laboratory test result [facility] ([facility] S = Susceptible; I = Intermediate; R = Resistant P = Positive; N = Negative MICS are expressed in micrograms per mL Antibiotic RSLT#1 RSLT#2 RSLT#3 RSLT#4 Ceftriaxone S Ciprofloxacin S Gentamicin S Levofloxacin S Meropenem S Piperacillin/Tazobactam S Trimethoprim/Sulfa S Laboratory test finding (navigational concept) Laboratory test result [facility] ([facility] No Salmonella or Shigella recovered. ID Date Data Source [id number] 04/28/2020 09:16:00 AM EDT [facility] ([facility] Name Value Range Interpretation Code Description Data Noreen rce(s) Supporting Document(s) Clostridium difficile toxin A+B [Presence] in Stool by Immunoassay Laboratory test result [facility] ([facility] THIS TEST IS PERFORMED USING A RAPID IMMUNONASSAY FOR DETECTING CLOSTRIDIUM DIFFICILE TOXINS A AND B. ID Date Data Source [id number] 05/03/2020 03:06:00 PM EDT [facility] Name Value Range Interpretation Code Description Data Noreen rce(s) Supporting Document(s) Fats, Neutral Normal [facility] Normal (<60 Droplets/HPF) Fats, Total Normal [facility] Normal (<100 Droplets/HPF) ID Date Data Source [id number] 05/07/2020 09:05:00 PM EDT [facility] Name Value Range Interpretation Code Description Data Noreen rce(s) Supporting Document(s) Calprotectin, Fecal 63 ug/g 0-120 [facility] Concentration Interpretation Follo w-Up<16 - 50 ug/g Normal None>50 -120 ug/g Borderline Re-evaluate in 4-6 weeks >120 ug/g Abnormal Repeat as clinically indicated ID Date Data Source [id number] 05/16/2020 05:05:00 PM EDT [facility] Name Value Range Interpretation Code Description Data Noreen rce(s) Supporting Document(s) Request Problem [facility] This assay is not approved for [facility] clients. TEST: [id number] Fecal Chymotrypsin ID Date Data Source [id number] 05/04/2020 12:09:00 PM EDT [facility] Name Value Range Interpretation Code Description Data Noreen rce(s) Supporting Document(s) SALMONELLA/SHIGELLA SCREEN Final report . [facility] 05/04/20 1209: REMI/SHIG SCRN previously reported as: Preliminary report SS RESULT1 Aeromonas species . [facility] rodrigo 05/03/20 1205: SS RESULT1 previously re ported as: Comment Microbiological testing to rule out the presence of possible pathogens is in progress.Heavy growth SS RESULT2 Comment . [facility] No Salmonella or Shigella recovered. SS RESULT5 Comment . [facility] S = Susceptible; I = Intermedia te; R = Resistant P = Positive; N = Negative MICS are expressed in micrograms per mL Antibiotic RSLT#1 RSLT#2 RSLT#3 RSLT#4Ceftriaxone SCiprofloxacin SGentamicin SLevofloxacin SMeropenem SPiperacillin/Tazobactam STrimethoprim/Sulfa S CAMPYLOBACTER CULTURE Final report . [facility] CC RESULT1 Comment . [facility] No Campylobacter species isolated. E COLI SHIGA TOXIN EIA Negative Negative [facility] Performed at: [facility] [id number] Director: Lu Seay MD, Phone: [phone] ID Date Data Source [id number] 05/06/2020 04:05:00 PM EDT [facility] Name Value Range Interpretation Code Description Data Noreen rce(s) Supporting Document(s) PANCREATIC ELASTASE, FECAL 401 >200 [facility] INFCE Result Units: ug Elast./g Se melina Pancreatic Insufficiency: <100 Moderate Pancreatic Insufficiency: 100 - 200 Normal: >200Performed at: [facility] [id number] Director: Toby Peralta MD, Phone: [phone] ID Date Data Source [id number] 05/04/2020 12:05:00 PM EDT [facility] Name Value Range Interpretation Code Description Data Noreen rce(s) Supporting Document(s) E coli Shiga Toxin EIA Negative Negative [facility] Campylobacter Culture Final report [facility] Salmonella/Shigella Screen Final report Abnor mal (applies to non-numeric results) [facility] ID Date Data Source [id number] 05/06/2020 04:05:00 PM EDT [facility] Name Value Range Interpretation Code Description Data Noreen rce(s) Supporting Document(s) Pancreatic Elastase, Fecal 401 ug Elast./g >200 [facility] Severe Pancreatic Insufficiency: <100 Moderate Pancreatic Insufficiency: 100 - 200 Normal: >200 ID Date Data Source [id number] 05/04/2020 12:05:00 PM EDT [facility] Name Value [...] SPiperacillin/Tazobactam STrimethoprim/Sulfa S ID Date Data Source [id number] 05/04/2020 12:05:00 PM EDT [facility] Name Value Range Interpretation Code Description Data Noreen rce(s) Supporting Document(s) Result 1 [facility] No Campylobacter species isolated. ID Date Data Source [id number] 04/28/2020 10:16:00 AM EDT [facility] [id number] Name Value Range Interpretation Code Description Data Noreen rce(s) Supporting Document(s) CDIFF A/B NEGATIVE NEGATIVE [facility] THIS TEST IS PERFORMED USING A RAPIDIMMU NONASSAY FOR DETECTING CLOSTRIDIUM DIFFICILE TOXINS AAND B. ID Date Data Source [id number] 04/27/2020 12:26:25 PM EDT [facility] Name Value Range Interpretation Code Description Data Noreen rce(s) Supporting Document(s) Progress Note [facility] ABLJRm3qBnITGyRp21/IUBpjNJRpn5UgWZrmCBm4LDmxMIXpW1KoGIV7yT9bCUI7MPlTFfLcDeTkRLT3 [facility] [file] AgICAgICAgICAgICAgICAgICAgICAgICAgICAgICAg ICAgICAgICAgICAgICAgICAgICAgICAgICAgICAgICAgICAgICAgICAgICAgICAgICAgICAgICAgICAg LM7GPBNgDNIzGKClPVJeAAHqVQVkLJNyIEZgDRQfEPStBMNaFVOaNOFuWOTkOHEaHCZgFATmIHPvQIQb ICAgICAgICAgICAgICAgICAgICAgICAgICAgICAgIC PjZVIiBPBrCHWzYZ8AYZWjCWCgRFIiPGMgEHIyHFQoPQAhYPWqLABjEQLtZLYbDBPoONNgFPYfRFWpBB TfCMWpOCGkWNBlLMJdNAVkMROvQLZqMLWtMDJoSOYmXAQgVFGyQBAyXHVgADTgOKJeKUHaMS7IFQLeEO AgICAgICAgICAgICAgICAgICAgICAgICAgICAgICAg ICAgICAgICAgICAgICAgICAgICAgICAgICAgICAgICAgICAgICAgICAgICAgICAgICAgICAgICAgICAg TIGxVH0IVGSlFKUnLMOvMOFxVXRaBBXdZYMtAGQsJRHwVQSmJSFhTIFpSZUxWIDvYAUoCEBiLXUhIDAw ICAgICAgICAgICAgICAgICAgICAgICAgICAgICAgIC EjKUCtRWZgWMSxOWXwFY7FWMEyMPDsGBEbNXWtNYTfEJVcZOFmCPVjRGHfJTTpEUVaCYRdSHGaHGEuUM OmLXFtFXGrCMDkYMHrJMNnSZNiLXCzXPBoAYRcSAAqCTJfQHNwZHJvRIKdBCYxFAYoYTIcWDRwFG1DUF AgICAgICAgICAgICAgICAgICAgICAgICAgICAgICAg ICAgICAgICAgICAgICAgICAgICAgICAgICAgICAgICAgICAgICAgICAgICAgICAgICAgICAgICAgICAg PDUcFRLrBX2JHURlNXCxPTBrDBEbEIXvBVWrGCDfVWJiZWAaOIJcFVTwEUEnSWSnPHAfEDJoTIVlYXBv ICAgICAgICAgICAgICAgICAgICAgICAgICAgICAgIC UrNVDtCXEsABWqOTElZADiPL1BQVPiLXFkLBTyXYNeSTVhQJUjPHEgEBJaAKSvJZMjPEApVNHaFXAqFK AgICAgICAgICAgICAgICAgICAgICAgICAgICAgICAgICAgICAgICAgICAgICAgICAgICAgICAgICAgIA 9VXN90cDQmj8F6NRQcNR1ejll/Pu2RYKhqrbYrhPXs KG4YGaHoFU2idt5WKpUoVB0tnx9AYUuXBsKfO2U1gBSxRPYsJKTIEgNlA19mSCwhDr08ZZskAAIkZsKe FUn8Qn6CRzMbC4giRGCmEnK2SBDbVxUfWGloDV1Ov9BjcBImDVz+Ar6IWU3uq5XgZFibFDQgSQ5bqj3K IKqPRsQbV1SxphQ9YRGjQTDlXk8PWTMjWSQirIHxLG JyGMKWDnJuC3BjfU51AVDTTz2+DHoxibUgDheOZcHmGWRgs8TuHKd1GH7FFBLxZAz3mZTyWZDmH4Chf2 OoCi46NXMoRezaOFIwxOIMoFeruzUEnlNyxuokYMAzXOGyYX9lVV1rBLMfDCLtMtM3MQFYSR7YNCQcFQ LmmXOdDKUnFZPZVV3MMYmnBUJ7CPGdlsZefBLxYPtq SH0CQTQmmmIgPUdwGDYVQQs+Ba8BOU8pj2KvNZgjAAEkEL0vit7GZRjNSoXfW2K2cUQpH3R7JMgdUj6P APRsASPwDLzeHUIEJDoyVE4GKV3vkgO4NE6YwFCnCIMoFTUiaJYxHOg4N37qaNFkBQwaLI0INQY+Carlo+ Ku2ISQDhBSTnGPOdVfNmFQHIAwHdO2PbV8VWs3QpD5 IxDT49zZbzjaLaVXiuUZ1SNI0fOTJcEMIIOF2RtNGtaC4jlmLaGUSkXNYGPyZoN14enWWcYFBwLPM1TF TdZt1YDUCtH8ZsaxKbmNgcofThIWLpZPMLNP4HTPqgwnVbwVBjcZokXI58vGgfCS6YTm5GIjTvOF0sie 8HsTZlRc3WXAVsKw1RIPRpSKNgAIEoYKO2RHGpNaAt NFrwZGGrROZsVYC4JFPhHLUrTA2WPhZvXDYnXHhyLGDvFRSfSHChpd2XRQQoLLEvSOk4FKQvEVIjUDUn NXooMEXnLYLvAEJ7GDHnGZFnBK6VRsMtUVMfBKV4NCCxRIEgHENasf0KEFKxORBcKbIpNLJdAOCsYWTy CCdhKZByEHNaNJZ0YITkCPXyBM9VCfIfJFSrOXOkPo WdNFHuDYSkxm3EVWHiXRNdTjM2XRDoXORfASIdJHlwOUGqLYV5RENdFANwGCMiSP4MWjOtKJWlZUC2WO FhSYFzDCGtix0EGNJaJOCoDNk7WgDsDYUfFHMxVGnnBIIaJOT3AIR7WLHxAHKxPB9VOrQbRUOgEXP5Mb ZkFUUvQFHtwy1RSFCkSAPjFjM8FtXzAZZuOINzGAjq CWZgFYH5CGPjOAVuEVPuWG6HUuFzMFTdOSynGVzvPMIvIFLtge3IYXWxRGCrVrQ8UKYuUAXbYHAzFYhs YOVuIXO8GQf5ZATuULMjHB5IHbNmKYFlLQp6ZugeFONiUSZvni7QRKXeNPRwZKGtRZPsHCQuCJGfFNx0 xvFhnQUxHYb4GS9MI1LelhYyAkMHXo0Le993WVAqMN YzLk2JN1znMj4gAXNwCMQBYo1XVAp4FdivWjRxWGI9OlDrOUMnVKDtARKnAhOoOQTdJXBiBtR+IDxjNz AlXXX8NNPsLmSbIACqZHDzSJMbFDPcEpLdZ2F2CO7iACYMXv3+MNzuqCBfiOcxLWFMZfZ1VyOwNKamHJ VPRg0K ID Date Data Source [id number] 04/30/2020 04:05:00 PM EDT [facility] l Name Value Range Interpretation Code Description Data Noreen rce(s) Supporting Document(s) VITAMIN A 33.3 ug/dL 22.0-69.5 [facility] Reference intervals for vitamin A determ ined from [facility] studies. Individuals with vitamin A less than 20ug/dL are considered vitamin A deficient and those withserum concentrations less than 10 ug/dL are consideredseverely deficient.This test was developed and its performance characteristicsdetermined by [facility]. It has not been cleared orapproved by the Food and Drug Administration.Performed at: [facility] [place], [place] [id number] Director: Toby Peralta MD, Phone: [phone] ID Date Data Source [id number] 04/27/2020 08:06:00 AM EDT [facility] l Name Value Range Interpretation Code Description Data Noreen rce(s) Supporting Document(s) VITAMIN D, 25-HYDROXY 35.0 ng/mL 30.0-100.0 [facility] Vitamin D deficiency has been defined by the [place] ofMedicine and an Endocrine Society practice guideline as alevel of serum 25-OH vitamin D less than 20 ng/mL (1,2).The Endocrine Society went on to further define vitamin Dinsufficiency as a level between 21 and 29 ng/mL (2).1. IOM ([place] of [employer]). 2010. Dietary reference intakes for calcium and D. [place]: The National Academies Press.2. Rian MF, Lefty BUSTILLO, Marbin GOYAL, et al. Evaluation, treatment, and prevention of vitamin D deficiency: an Endocrine Society clinical practice guideline. JCEM. 2010; 96(7):1911- 30.Performed at: [facility] [place] [id number] Director: Lu Seay MD, Phone: [phone] ID Date Data Source [id number] 04/28/2020 06:05:00 AM EDT [facility] Name Value Range Interpretation Code Description Data Noreen rce(s) Supporting Document(s) VITAMIN B12 1305 pg/mL 232-1245 [facility] Performed at: [facility] [address] [place], [place] [id number] Director: Lu Seay MD, Phone: [phone] ID Date Data Source [id number] 04/27/2020 08:06:[address] [facility] Name Value Range Interpretation Code Description Data Noreen rce(s) Supporting Document(s) Vitamin D, 25-Hydroxy 35.0 ng/mL 30.0-100.0 [facility] Vitamin D deficiency has been defined by the [place] of[employer] and an Endocrine Society practice guideline as alevel of serum 25-OH vitamin D less than 20 ng/mL (1,2).The Endocrine Society went on to further define vitamin Dinsufficiency as a level between 21 and 29 ng/mL (2).1. IOM ([place] of Medicine). 2010. Dietary reference intakes for calcium and D. [place]: The National Academies Press.2. Rian MF, Lefty BUSTILLO, Marbin GOYAL, et al. Evaluation, treatment, and prevention of vitamin D deficiency: an Endocrine Society clinical practice guideline. JCEM. 2010; 96(1):1911-30. ID Date Data Source [id number] 04/28/2020 06:05:00 AM EDT [facility] Name Value Range Interpretation Code Description Data Noreen rce(s) Supporting Document(s) Vitamin B12 1305 pg/mL 232-1245 Above high normal [facility] ID Date Data Source [id number] 04/30/2020 04:05:00 PM EDT [facility] Name Value [...] and Drug Administration. ID Date Data Source [id number] 04/26/2020 01:11:00 PM EDT [facility] FAX [phone] Name Value Range Interpretation Code Description Data Noreen rce(s) Supporting Document(s) FERRITIN 25 ng/mL 8-252 [facility] ID Date Data Source [id number] 04/26/2020 01:11:00 PM EDT [facility] FA[facility] [phone] Name Value Range Interpretation Code Description Data Noreen rce(s) Supporting Document(s) IRON 106 ug/dL 50-170 [facility] TIBC 398 ug/dL 250-450 [facility] % SATURATION 27 % 20-50 [facility] ID Date Data Source [id number] 04/26/2020 12:32:00 PM EDT [facility] l FAX [phone] Name Value Range Interpretation Code Description Data Noreen rce(s) Supporting Document(s) WHITE BLOOD COUNT 3.8 K/mm3 4.0-10.0 L [facility] al RED BLOOD COUNT 4.19 M/mm3 4.00-5.50 [facility] HEMOGLOBIN 13.4 gm/dL 12.0-16.0 [facility] HEMATOCRIT 40.8 % 36.0-48.8 [facility] MEAN CELL VOLUME 97.4 fl 80-96 H [facility] MEAN CORPUSCULAR HEMOGLOBIN 32.0 pg 27.0-31.0 H [facility] MEAN CORPUSCULAR HGB CONC 32.8 g/dl 32.0-36.0 [facility] RED CELL DISTRIBUTION WIDTH 11.5 % 10.0-14.5 [facility] PLATELET COUNT 217 K/mm3 172-450 [facility] ID Date Data Source [id number] 04/26/2020 12:09:00 PM EDT [facility] ([facility] Name Value Range Interpretation Code Description Data [facility] Supporting Document(s) Ferritin [Mass/volume] in Serum or Plasma 25 ng/mL 8-252 [facility] ([facility] FAX [phone] Vitamin D, 25-Hydroxy 35.0 ng/mL 30.0-100.0 MED ENT ([facility] Vitamin D deficiency has been defined by the [place] of Medicine and an Endocrine Society practice guideline as a level of serum 25-OH vitamin D less than 20 ng/mL (1,2). The Endocrine Society went on to further define vitamin D insufficiency as a level between 21 and 29 ng/mL (2). 1. IOM ([place] of Medicine). 2010. Di etary reference intakes for calcium and D. [place]: The National Academies Press. 2. Rian MC, Lefty BUSTILLO, Efraín santana GOYAL, et al. Evaluation, treatment, and prevention of vitamin D deficiency: an Endocrine Society clinical practice guideline. JCEM. 2010; 96(7):1911-30. Performed at: RN - [facility] [address] [id number] Entry Level Electrician: Lu Seay MD, Phone: [phone] Cobalamin (Vitamin B12) [Mass/volume] in Serum or Plasma 1305 pg /mL 232-1245 Above high normal [facility] ([facility] ) Performed at: [facility] [address] [id number] Entry Level Electrician: Lu Seay MD, Phone: [phone] Retinol [Mass/volume] in Serum or Plasma 33.3 ug/dL 22.0-69.5 [facility] ([facility] Reference intervals for vitamin A determ ined from [facility] internal studies. Individuals with vitamin A less than 20 ug/dL are considered vitamin A deficient and those with serum concentrations less than 10 ug/dL are considered severely deficient. This test was developed and its performance characteristics determined by [facility]. It has not been cleared or approved by the Food and Drug Administration. Performed at: [address] [id number] Entry Level Electrician: Toby Peralta MD, Phone: [phone] ID Date Data Source [id number] 04/26/2020 12:09:00 PM EDT [facility] ([facility] Name Value Range Interpretation Code Description Data Noreen rce(s) Supporting Document(s) Laboratory test finding (navigational concept) 106 ug/dL 50-170 [facility] ([facility] Tibc 398 ug/dL 250-450 [facility] ([facility] Laboratory test finding (navigational concept) 27 % 20-50 [facility] ([facility] ID Date Data Source [id number] 04/26/2020 12:09:00 PM EDT [facility] (Famil [facility] [...] 97.4 fl 80-96 Above high normal [facility] ([facility] MCHC 32.8 g/dL 32.0-36.0 [facility] ([facility] MCH 32.0 pg 27.0-31.0 Above high normal [facility] ([facility] PLT 217 K/mm3 172-450 [facility] ([facility] RDW 11.5 % 10.0-14.5 [facility] ([facility] ID Date Data Source [id number] 04/26/2020 07:45:00 AM EDT [facility] Name Value Range Interpretation Code Description Data Noreen rce(s) Supporting Document(s) [facility] TKREKd1rRgXOEuBxLXGoDcfUAQbeEQnkYOOlP6W9NRcvKt5QYPphpaVfVYEoGe4+MJSyEH2ivq3zMEVj gMy [file] j6VCQlYTN9oSpvPvAqqI2fLEtvbFzdB6rCy3laX+AIRCRAFT PNEUDRAULIC SYSTEMS MECHANIC/0HQnMqeec//TqOrzOXUgQm0nDOe+A8zw/N6+r rkYl6TThkLSNNTd9jFEI9FCtObHaKBG0pqk8PExBCB AqYHqYEDU1D+LeR4VTyv2tc02Ufjp47hfunjt7joYAGXpOLmhH48pevnGRfB+6F1Ozu3bDMivl3Dhuzi IBS38o3tSK34GyT09nChFQpkqLyDi52ftbCsMeXFeUCYXg5iQu4/dT3o6N2aIQ1MBBMukK/L2qd0+Corrina [file] 4PbaUfVo/u9Z2wXjDSbOgwND5lgYQMDkRqk5nl+lift team technician [file] hqpNA4PGLT3BQQfKxTmhtdWbtxpNCW+Wjs88d+JOSÉ/HFi3ZXA8sOfxKAG+Cwz/o5xRckxoigUd+dibSf [file] vp emerging media/RTE+KV0peM2SHC97jjQzZ92x2BGHnsmR/H47wzdk5XasIVET1HS2bscXBXBWkjKYAa738HynxYax2 [file] José+JPOJkjcezToES0jTetgkWmRjQtWwaEFB1nbuxig54YMVtUFSMFW/BGgm1pasWk2m1ZvOR8lTRP+s [file] josé/u31zJNOo2gNJJWi5LKISek6A1bmzcc6ksaKQMXZjV9IUZQ5De/Gkemwh6K6FMscc9ueCE0VJrJ8n [file] sales contract administrator+3qR2thzBORMbjj57FGXpo/H+wTottNx+4iL+DnletJ73l4SJp//HpglXmkDji6/0JOGoICNQLHKL [file] 9Feqqr/cOOxhphjS0Lv5wKaC+gtxtmo9UK/Kurtis/TFW0YqtlfuEX8OYuexEerlbzTpdxbM06xiUhLuSiTO 3Ah6TLhih4Dx+Night Club Manager+cVyhMMkqElQ2cBmvuV9MQzPpbnSD45unG1eDzSYD53Firgfnkmhj95YmKRz4/zs [file] WyL/ug2fBrnNw98ZYSYfDM2hA0AWiOBdHKx6fd26V2MuwBf68LHKBD4TFRK2gw5rwAMITlOpHpu/AIRCRAFT PNEUDRAULIC SYSTEMS MECHANIC/i TeauhbvQt+DVaLEx+T9qfjZiRHIuctSUZqAGRsyQw2iHfjeSin4igRq4gHUmnEIJGKXJJY2CNxeiGEGj 0rE1vOq+PWvSYHQq0UAEIHIkOKucsGcf8g7+k/x7fh jPXbciM6LN8f8JadStOdSt+1sn7rVz9SnfrnYB/7FxQlOdYNVFeSDrhQX3WE011e37fk0RHS8/o+fm2n sTBWK/WmPvCYXg3YTmtRc6lyOCeQg9THEEtfEHFuj5cvc70GLwStrCVi0RXF7TvOcM9cjZ9Vtztea3HB r/jLxH2eGeWtYf23CnrraE8u/pJqRdk53cYHXznRwW 06vK/RgNLsrr8ylXrXlJkVzfezXoDK4DndBo+8er3EzKzuS84ebgurffxIne3fnJRLxYHjrIbkHJMq8a TI8RJ1o4ca9F1y7GFm2owQMRETWFiGOl/28GXI8YHx/wJvVwZ0gN9SDI2rX+Tdt0ICN/6M8ZXJySAKx9 Ni4QAnTk6FZPJ0mnxpeARR15GZIaej1rWgzDKDeykI Ia4pxJTZw6rfcziHefOrkuceEoWIkHZ+vnewSzSDc+5yUoxXqg3092AfevnhvwKZFFSEiH2+4RtNZBaM SsmpBKC/WDJ1V+H+GK/tBQHyco2ezjCyeqebUS7gtNjFJsssXm0Tg3B84LqAJ6emX/lYuGW1cXjHxjYT CnNqo/sVGBiNwUZ5tWyJwBc6C3AEmi5fMZbl0IsJ2H YL0NqCeHt2Md0Dd/27d+/6czqhpE36WM+qAnOEEzu5AycTYUWGXP/FByytrUwzIs8tQRIURS9ot2vc+N uJrxYL3Qzzsv0qeT+AGkg9Pb6GA+DncWt0QtCXi1SG+S2fzkWHX2S0wv4rTvti4ulhcfIlHLNT7aprMq BAo5exj/Iman/eeY/J8M2Ig2wQLP3D33P66dbngTXrYp [file] 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+5mxwcennKekkwh60jl28YiFVHlpDyNpNAHYUcf9IJ6sZcE6b6R5AwMX2vAye8RypLWMpsMcmjYKFr [file] V3vVXxtclmkGxjWGUb49DvOj8XrFHha4uFdeTQ+[facility] [file] vp emerging media/9XXIUvDIatgOlFttovSdv7QAZtDmJZEW1+RG00U+ysCDOqkyr4I0I3OXl8T3Rp2c8AaJLWtXpubtX [file] Internship [file] Pilar/PTIJN5BbVjd7+4k3NwavkC6NB+If6qwyCQok+L 2X5hHp4gQbT5GgQXT3qiVQqNIz7F7OQZWL3Q22LTcHO8AeD4CSVyrD1LB01NHNKLrqxwAP0H2DSFZnWe F8fLuWUE0HEjVcFepCtCBpHgjz7C+wYcr5jKQhmMaFKX3B1r5z0xUHWC6vOtvpD0e6XqTsppUMMXyqx5 mHYCxm4kKTewJC5s+ZgHspG+tRzqlRfzr2yMsvCtDn iu94UMEzar3eTfQOph45Iskpg2GyJeBvuerNEBK4QLj/zXWsL6R/5bgx5j+tlPmfyHMcL/ihACPH5w3I X5Npi4OIXwu9LRIzWusWMd3tTVJ7/4e1/brUZVuneg1n9kRqu1T+Y94UL6ccePTbaqCEq/8vUv+FfkU7 l5B8e8p8xHKSd50ODjQ6O3XVCFXvgIRU6tL/xYELi9 aPOvKjziZ3fAMLY4p8hhCcyOK0l+D9ZJDx8ikgdsmK6OYWuaUbz0xgcLHYy+WUnv9aF0eP/BRCAG0/technical account representative [file] 1OoIEs2sHxkTwf8BAxJl3AkkZplxULVsa389e3/CbccP+4jZLA8wNkg3ZRzR6cpZVWJ058A4eT+vSR3NbCRuD/Ot3mjt4AOGVXgi3oCCn+7eDIkPMHgm04 pOVeb6anhPWISm15VYsolLfTte1o6woonRYZkrUhJxqa6JocUTtom0YtSWkrjT6nAhcx7FrK7joUAk4k 3KbZzweBae5Lw2HHfm5EX46Qjya+XUB275d5d4I791 DWkqOqJEn/Maria Victoria+0so21y7miV8zqbcGA3c6D+fLOokNcs6SuSJ6PkXIhsly9PBEJescTiRFi04ircM7Gv [file] Certified Drug Counselor/TH7OObDAHReqE+eDaES9JAyB4TALpXoSbd4iu5IeBeTnhRQ3AUVEg2w3fmxdmGyQKBeDCJ1AjV75 [file] +33POzfcHnDF+F+lkMk7z3cu7n6ff39ribIKPbm [file] 9ndWbMcvx18Wz5l3JqNpAQAtv3zvf9yJjyRAJFzw0mozCXPeMAWBHhiomxpf2DPGfouZF9L+Oanh+yDQcv tpoZxxx0Dx8UvOfg8hGdc57e35vJJUsqHg8aja/ujb 43KdStV6TLOPKC/nP0qauAB1+HwHNx3O5OewvfII13kLYNnounDh5K2Mmeup58wE/IWuFycOQCfWarzV dd0bZSvpPG4kJuuu+zo4J2RJrGLTtrIGEC5af5KPpVoycb2KdUkPmaPhPqvNZBB6QHd5rtZWm9e1zCym FqwTgZbNGDqX8Dscz4GtOuDrf2JJ2ZR66pYXrIchw8 mq++lDj2kTXlKhXY4uZ/CoI6OxC/2AE357ELH88e9sN1Xv2rZhuWcNjtEuA/+jA3hIl+ASM3huvs5M6M DRYdRHdW/4fEPs6jpxQYMIPfEtKOzX0VsLdnraZv2RtlLQhz0CiJ84cGgZZH+0oSsdU7dTgCjk+2/89a jTfdPq35G5iMj66C5aQnI7KELAMjmysnNJNj0kO9al HROOKjv93cpgI0IFJcFgni/59e0RuunEa+P+technical account representative+B7fJBOjQPRc76stqLm/8QTmYJplHDSODDBsOUlolL C8pkkGL2CyAl5zAWXkDd8X16e7W50I32NlFhj76Xd8aJ8AQkXalsQimUwQIuxgkbY0cd8scNP3n/+X9E pTJGE9PAcnvWdhT7gS0H3fSOg+s4fqp+6sS5dZ3uUZ /QoHGoOaKyBU6gM/cOBxj1l5YDNkoTsuuorzQWqL6+e+HM3s+LTKY8FlW5YEaj7Ix/2bx9+u+FERQ2As U4XrmXjD1vC9EfTep2POnxkuRBypuR+e4STlK4+OS12NMXUZpmYgU7+K3IezddOOxVZAk0A//jgL0cpX mTnUDg59JoIDhHIPGME+uOYc8yRh4Y++Lw4qt3Yroo PcnINb/79EN8V9kEcO9Cy41156/8rkZ5OKPZNQcvA1Q+QBjgkSr9a3kEiwfsQju+TkADD6ey6FAk4aYS 5RwpdFRdu7C1k+98cA5CQo2yytdoY5fINj10fiq4RGImgJk7PNrX3FwPGXSUtOoQALliP66C527d6Kq3 FK/8UFG4WMwl7xa+5nW3XjrgAQbamVPsrsSlujR3/B tpoL0rlOYCh3KkWjCIwaUXdOUsLTpCkdUH7ehk/g/IRsv1245P5Vp/Euzsl++0LcGMO3azlXqyzJ5Nq1 YuEqNYxhd2WjjATKu1Y1Am67vyq2741aUZhZHVON7/n9PtLvfGw1EGNlZSynINZIrcl3u2fHfOJKCg+b GNEVZGVZPAAuygtnT+m6BuxqTsAKHFpXMIUl9QLun5 [file] SDOY6yyG0pxPqQ3QVT3dn3YyKQJhPSgctoXzZpbHIQdyhMJqxRheLFCIPfSzCBVlBgVWQkMsLD9G ID Date Data Source [id number] 04/25/2020 09:50:59 AM EDT [facility] Name Value Range Interpretation Code Description Data Noreen rce(s) Supporting Document(s) Progress Note [facility] QAWBJp9eDnOWIxKk91/TNLdwPQPur4JoYRsaXXd6ZNmeNIIcD0FbOKO0eC1jEZW5UOnABhTzAjOlMQN2 lbm [file] DRW6TNXzAeTcWX5DKg0CNxT2KVW1iKBbDk5NNHk2WFVSZjAtZA4JCEl= ID Date Data Source [id number] 03/22/2020 08:41:00 AM EDT [facility] Patient: JOHNSON HUGHES Observati on Report - Physicians/Mid Levels [facility].VisitID: [id number] [place] [address] [phone], FRegistration Date/Time: 03/22/2020 07:40 Weight:90.7 kg (S). Height/Length:64 inches (S). BMI:34.3 PAST HISTORYProblems:Back Pain [Chronic].Breast Cancer. (In process of diagnosis currently (right side))Tendonitis.Sciatica.Arthritis.Knee Effusion.Myofascial Strain [Intermittent].Contusion [Resolved].Gastroenteritis [Resolved].Contusion [Resolved].Abnormal Liver Function Test [Resolved].Cholecystitis [Resolved].Knee Injury [Resolved].Vomiting [Resolved].Neck Injury Risk Factors [Resolved]. Additional Surgeries:Ankle . (Rigth side fracture repair)Appendectomy.Back Surgery.Cholecystectomy.Colonoscopy.Gastric bypass.Hysterectomy.Knee Surgery. Medications:Biotin Oral (Tablet 49065 mcg) 1 tablet, daily, last dose today.Multivitamin Oral 1 tab , daily, last dose today.Vitamin D Oral 1 capsule, daily, last dose today. Allergies:'fresh fruits and vegetables' .(Anaphylaxis)Morphine.(vomiting)Tetanus shot.(rash, swelling)Tramadol.(hives, itching, rash) (chest pressure)Tree nuts.(angioedema, itching). FAMILY HISTORYNo significant family medical history. (Electronically signed by Shakila Maxwell, PCarolACarol 03/22/2020 08:34) Name Value Range Interpretation Code Description Data [facility] Supporting Document(s) ID Date Data Source [id number] 03/01/2020 01:13:00 PM EDT [facility] ([facility], ) Name Value Range Interpretation Code Description Data [facility] Supporting Document(s) Surgical pathology study Laboratory test result [facility] ([facility], ) FINAL DIAGNOSIS Right axillary lymph node, [...] MD 03/03/2020 1317 ID Date Data Source [id number] 12/03/2019 09:17:00 AM EDT [facility] ([facility] Name Value Range Interpretation Code Description Data Noreen rce(s) Supporting Document(s) BUN 7 mg/dL 8-23 Below low normal [facility] ([facility] CHRONIC KIDNEY DISEASE STAGING PER [...] HCT IS 5% LESS SOURCE FOR DATA: [employer] 1800 OPERATION MANUAL( AUTOMATED BLOOD COUNTS AND DIFF.) APPENDIX B-3 Glu 96 mg/dL 70-110 [facility] ([facility] CHRONIC KIDNEY DISEASE [...] HCT IS 5% LESS SOURCE FOR DATA: [employer] 1800 OPERATION MANUAL( AUTOMATED BLOOD COUNTS AND DIFF.) APPENDIX B-3 Na 139 mmol/L 136-145 [facility] ([facility] CHRONIC KIDNEY [...] APPENDIX B-3 Creat 0.7 mg/dL 0.5-1.0 [facility] CHRONIC KIDNEY DISEASE [...] HCT IS 5% LESS SOURCE FOR DATA: [employer] 1800 OPERATION MANUAL( AUTOMATED BLOOD COUNTS AND DIFF.) APPENDIX B-3 BUN/Creatinine Ratio 10.3 CALC [facility] ([facility] CHRONIC KIDNEY DISEASE [...] HCT IS 5% LESS SOURCE FOR DATA: [employer] DYN 1800 OPERATION MANUAL( AUTOMATED BLOOD COUNTS AND DIFF.) APPENDIX B-3 CL 102.5 mmol/L 98.0-107.0 [facility] CHRONIC KIDNEY DISEASE STAGING [...] APPENDIX B-3 Co2 26.3 mmol/L 22.0-29.0 [facility] ([facility] CHRONIC KIDNEY DISEASE STAGING [...] DIFF.) APPENDIX B-3 K 4.6 mmol/L 3.5-5.1 [facility] ([facility] CHRONIC KIDNEY DISEASE STAGING [...] APPENDIX B-3 Alb 4.1 g/dL 3.4-4.8 [facility] ([facility] CHRONIC KIDNEY DISEASE [...] HCT IS 5% LESS SOURCE FOR DATA: [employer] 1800 OPERATION MANUAL( AUTOMATED BLOOD COUNTS AND DIFF.) APPENDIX B-3 CA 9.7 mg/dL 8.6-10.2 [facility] ([facility] CHRONIC KIDNEY DISEASE [...] HCT IS 5% LESS SOURCE FOR DATA: [employer] 1800 OPERATION MANUAL( AUTOMATED BLOOD COUNTS AND DIFF.) APPENDIX B-3 TP 6.5 g/dL 6.6-8.7 Below low normal [facility] ( [facility] CHRONIC KIDNEY DISEASE [...] HCT IS 5% LESS SOURCE FOR DATA: [employer] 1800 OPERATION MANUAL( AUTOMATED BLOOD COUNTS AND DIFF.) APPENDIX B-3 Globulin 2.4 CALC [facility] CHRONIC KIDNEY DISEASE STAGING PER [...] HCT IS 5% LESS SOURCE FOR DATA: [employer] 1800 OPERATION MANUAL( AUTOMATED BLOOD COUNTS AND DIFF.) APPENDIX B-3 A/G Ratio 1.7 CALC [facility] ([facility] CHRONIC KIDNEY DISEASE STAGING PER [...] DIFF.) APPENDIX B-3 Alp 91.1 U/L 35-129 [facility] ([facility] CHRONIC KIDNEY DISEASE [...] APPENDIX B-3 Alt (SGPT) 11 U/L 0-41 [facility] ([facility] CHRONIC KIDNEY DISEASE STAGING [...] HCT IS 5% LESS SOURCE FOR DATA: [employer] DYN 1800 OPERATION MANUAL( AUTOMATED BLOOD COUNTS AND DIFF.) APPENDIX B-3 Tbili 0.62 mg/dL 0.0-1.2 [facility] ([facility] CHRONIC KIDNEY DISEASE STAGING [...] B-3 Ast (Sgot) 18 U/L 0-40 [facility] ([facility] CHRONIC KIDNEY DISEASE STAGING [...] DIFF.) APPENDIX B-3 Anion Gap 15 mmol/L [facility] ([facility] CHRONIC KIDNEY DISEASE STAGING PER [...] HCT IS 5% LESS SOURCE FOR DATA: [employer] 1800 OPERATION MANUAL( AUTOMATED BLOOD COUNTS AND DIFF.) APPENDIX B-3 eGFR 105 # [facility] ( [facility] CHRONIC KIDNEY DISEASE STAGING PER [...] HCT IS 5% LESS SOURCE FOR DATA: [employer] DYN 1800 OPERATION MANUAL( AUTOMATED BLOOD COUNTS AND DIFF.) APPENDIX B-3 Osmolality-Calculated 274.8 CALC MED [facility] ([facility] CHRONIC KIDNEY DISEASE [...] HCT IS 5% LESS SOURCE FOR DATA: [employer] 1800 OPERATION MANUAL( AUTOMATED BLOOD COUNTS AND DIFF.) APPENDIX B-3 eGFR Non-Afr. Indian 90 # [facility] ([facility] CHRONIC KIDNEY DISEASE [...] HCT IS 5% LESS SOURCE FOR DATA: [employer] 1800 OPERATION MANUAL( AUTOMATED BLOOD COUNTS AND DIFF.) APPENDIX B-3 ID Date Data Source [id number] 12/03/2019 09:17:00 AM EDT [facility] ([facility] Name Value Range Interpretation Code Description Data Noreen rce(s) Supporting Document(s) WBC 4.2 10E3/uL 4.1-10.9 [facility] ([facility] CHRONIC KIDNEY DISEASE STAGING [...] HCT IS 5% LESS SOURCE FOR DATA: [employer] 1800 OPERATION MANUAL( AUTOMATED BLOOD COUNTS AND DIFF.) APPENDIX B-3 HGB 14.3 g/dL 12.0-18.0 [facility] ([facility] CHRONIC KIDNEY DISEASE [...] HCT IS 5% LESS SOURCE FOR DATA: [employer] DYN 1800 OPERATION MANUAL( AUTOMATED BLOOD COUNTS [...] DIFF.) APPENDIX B-3 RBC 4.40 10E6/uL 4.20-6.30 [facility] ([facility] CHRONIC KIDNEY DISEASE [...] APPENDIX B-3 MCHC 33.7 g/dL 31.0-36.0 [facility] ([facility] CHRONIC KIDNEY DISEASE [...] DIFF.) APPENDIX B-3 MCV 96.4 fL 80.0-97.0 [facility] ([facility] CHRONIC KIDNEY DISEASE [...] HCT IS 5% LESS SOURCE FOR DATA: [employer] DYN 1800 OPERATION MANUAL( AUTOMATED BLOOD COUNTS AND DIFF.) APPENDIX B-3 MCH 32.5 pg 26.0-32.0 Above high normal [facility] ([facility] CHRONIC KIDNEY DISEASE STAGING PER [...] HCT IS 5% LESS SOURCE FOR DATA: [employer] 1800 OPERATION MANUAL( AUTOMATED BLOOD COUNTS AND DIFF.) APPENDIX B-3 RDW-CV 11.8 % 11.5-14.5 [facility] ([facility] CHRONIC KIDNEY DISEASE [...] HCT IS 5% LESS SOURCE FOR DATA: [employer] 1800 OPERATION MANUAL( AUTOMATED BLOOD COUNTS AND DIFF.) APPENDIX B-3 PLT 248 10E3/uL 140-440 [facility] ([facility] CHRONIC KIDNEY DISEASE STAGING [...] HCT IS 5% LESS SOURCE FOR DATA: [employer] DYN 1800 OPERATION MANUAL( AUTOMATED BLOOD COUNTS AND DIFF.) APPENDIX B-3 Neut% 53.1 % 37.0-92.0 [facility] ([facility] CHRONIC KIDNEY DISEASE [...] HCT IS 5% LESS SOURCE FOR DATA: [employer] 1800 OPERATION MANUAL( AUTOMATED BLOOD COUNTS AND DIFF.) APPENDIX B-3 Lym% 37.8 % 10.0-58.5 [facility] ([facility] CHRONIC KIDNEY DISEASE [...] HCT IS 5% LESS SOURCE FOR DATA: [employer] 1800 OPERATION MANUAL( AUTOMATED BLOOD COUNTS AND DIFF.) APPENDIX B-3 MXD% 9.1 % 0.1-24.0 [facility] CHRONIC KIDNEY DISEASE [...] HCT IS 5% LESS SOURCE FOR DATA: [employer] 1800 OPERATION MANUAL( AUTOMATED BLOOD COUNTS AND DIFF.) APPENDIX B-3 Neut# 2.2 % 2.0-7.8 [facility] ([facility] CHRONIC KIDNEY DISEASE STAGING PER [...] APPENDIX B-3 Lym# 1.6 10E3/uL 0.6-4.1 [facility] ([facility] CHRONIC KIDNEY DISEASE STAGING [...] MPV 8.5 fL 9.0-13.0 Below low normal [facility] ( [facility] CHRONIC KIDNEY DISEASE STAGING PER [...] HCT IS 5% LESS SOURCE FOR DATA: [employer] 1800 OPERATION MANUAL( AUTOMATED BLOOD COUNTS AND DIFF.) APPENDIX B-3 MXD# 0.4 10E3/uL 0.0-1.8 [facility] ([facility] CHRONIC KIDNEY DISEASE STAGING [...] HCT IS 5% LESS SOURCE FOR DATA: [employer] 1800 OPERATION MANUAL( AUTOMATED BLOOD COUNTS AND DIFF.) APPENDIX B-3 ID Date Data Source [id number] 08/31/2019 05:04:00 PM EST [facility] ([facility] Name Value Range Interpretation Code Description Data Noreen rce(s) Supporting Document(s) Erythrocyte sedimentation rate by Westergren method 24 mm/hr 0-30 Normal (applies to non-numeric results) [facility] ([facility] ID Date Data Source [id number] 08/31/2019 05:04:00 PM EST [facility] ([facility] Name [...] 99.8 fl 80.0-96.0 Above high normal [facility] ([facility] Mean Corpuscular Hemoglobin 31.3 pg 27.0-33.0 Norm al (applies to non-numeric results) [facility] ([facility] ) Platelet Count, Automated 266 10 150-450 Normal (applies to non-numeric results) [facility] ([facility] ) Mean Corpuscular HGB Conc 31.4 g/dL 32.0-36.5 Below low normal [facility] ([facility] Red Cell Distribution Width 11.6 % 11.5-14.5 Norm al (applies to non-numeric results) [facility] ([facility] ) Nucleated Red Blood Cell % 0.0 % 0-0 Normal (applies to n on-numeric results) [facility] ([facility] ID Date Data Source [id number] 08/31/2019 05:04:00 PM EST [facility] ([facility] Name Value Range Interpretation Code Description Data Noreen rce(s) Supporting Document(s) Blood Urea Nitrogen 9 mg/dL 7-18 Normal (applies to non-nume mindy results) [facility] ([facility] Glucose, Fasting 99 mg/dL 70-100 Normal (applies to non-numeric results) [facility] ([facility] Creatinine For GFR 0.62 mg/dL 0.55-1.30 Normal (applies to non -numeric results) [facility] ([facility] Glomerular Filtration Rate > 60.0 Normal (applies to n on-numeric results) [facility] <content>Units are mL/min/1.73 m2</content>
<content></content>
<content>Chronic Kidney Disease Staging per NKF:</content>
<content></content>
<content>Stage I & II GFR >=60 Normal to Mildly Decreased</content>
<content>Stage III GFR 30- 59 Moderately Decreased</content>
<content>Stage IV GFR 15-29 Severely Decreased</content>
<content>Stage V GFR <15 Very Little GFR Left</content>
<content>ESRD GFR <15 on RECONDITIONER</content>
<content></content> Sodium Level 144 meq/L 136-145 Normal (applies to non-numeric res ults) [facility] ([facility] Chloride Level 108 meq/L 98-107 Above high normal [facility] ([facility] Carbon Dioxide Level 29 meq/L 21-32 Normal (applies to non-num shakila results) [facility] ([facility] Potassium Serum 3.8 meq/L 3.5-5.1 Normal (applies to non-numeric results) [facility] ([facility] Ast/Sgot 23 U/L 7-37 Normal (applies to non-numeric resul ts) [facility] ([facility] Calcium Level 8.4 mg/dL 8.8-10.2 Below low normal [facility] T ([facility] Anion Gap 7 meq/L 8-16 Below low normal [facility] ( [facility] Alt/SGPT 22 U/L 12-78 Normal (applies to non-numeric resul ts) [facility] ([facility] Alkaline Phosphatase 99 U/L 45-117 Normal (applies to non-num shakila results) [facility] ([facility] Bilirubin,Total 0.3 mg/dL 0.2-1.0 Normal (applies to non-numeric results) [facility] ([facility] Total Protein 6.5 GM/DL 6.4-8.2 Normal (applies to non-numeric re sults) [facility] ([facility] Albumin 3.2 GM/DL 3.2-5.2 Normal (applies to non-numeric resul ts) [facility] ([facility] Albumin/Globulin Ratio 0.97 1.00-1.93 Below low normal [facility] ([facility] ID Date Data Source [id number] 08/31/2019 05:04:00 PM EST [facility] ([facility] Name Value Range Interpretation [...] Never Smoker completed Never S moker eCW1 ([facility]) Smoking 08/31/2020 12:00:00 AM EST Never Smoker completed Never S moker eCW1 ([facility]) Smoking 07/04/2020 12:00:00 AM EST Never Smoker completed Never S moker eCW1 ([facility]) Smoking 07/04/2020 12:00:00 AM EST Never Smoker completed Never S moker eCW1 ([facility]) Smoking 07/04/2020 12:00:00 AM EST Never Smoker completed Never S moker eCW1 ([facility]) Smoking 07/04/2020 12:00:00 AM EST Never Smoker completed Never S moker eCW1 ([facility]) Smoking 07/04/2020 12:00:00 AM EST Never Smoker completed Never S moker eCW1 ([facility]) Smoking 07/04/2020 12:00:00 AM EST Never Smoker completed Never S moker eCW1 ([facility]) Smoking 07/04/2020 12:00:00 AM EST Never Smoker completed Never S moker eCW1 ([facility]) Smoking 07/04/2020 12:00:00 AM EST Never Smoker completed Never S moker eCW1 ([facility]) Smoking 07/04/2020 12:00:00 AM EST Never Smoker completed Never S moker eCW1 ([facility]) Smoking 07/04/2020 12:00:00 AM EST Never Smoker completed Never S moker eCW1 ([facility]) Smoking 07/04/2020 12:00:00 AM EST Never Smoker completed Never S moker eCW1 ([facility]) Smoking 07/04/2020 12:00:00 AM EST Never Smoker completed Never S moker eCW1 ([facility]) Smoking 07/01/2020 12:00:00 AM EDT Never Smoker completed Never S moker eCW1 ([facility]) Smoking 06/15/2020 12:00:00 AM EDT Never Smoker completed Never S moker eCW1 ([facility]) Smoking 06/06/2020 12:00:00 AM EDT Never Smoker completed Never S moker eCW1 ([facility]) Smoking 06/06/2020 12:00:00 AM EDT Never Smoker completed Never S moker eCW1 ([facility]) Smoking 06/06/2020 12:00:00 AM EDT Never Smoker completed Never S moker eCW1 ([facility]) Smoking 06/06/2020 12:00:00 AM EDT Never Smoker completed Never S moker eCW1 ([facility]) Smoking 03/07/2020 12:00:00 AM EDT Never Smoker completed Never S moker eCW1 ([facility]) Smoking 01/27/2020 12:00:00 AM EDT Never Smoker completed Never S moker eCW1 ([facility]) Smoking 01/27/2020 12:00:00 AM EDT Never Smoker completed Never S moker eCW1 ([facility]) Smoking 01/27/2020 12:00:00 AM EDT Never Smoker completed Never S moker eCW1 ([facility]) Smoking 01/27/2020 12:00:00 AM EDT Never Smoker completed Never S moker eCW1 ([facility]) Vital Signs ID Date Data Source UNK Name Value Range Interpretation Code Description Data Source(s) Respiratory rate 14 /min 14 /min MEDENT ( [facility]) Body mass index (BMI) [Ratio] 33.5 kg/m2 33.5 k g/m2 MEDENT ([facility]) Body weight 189.00 [lb_av] 189.00 [lb_av] MEDEN T ([facility]) Body height 63 [in_i] 63 [in_i] MEDENT ([facility]) 5'3" Body temperature 96.8 [degF] 96.8 [degF] MEDENT ([facility]) Heart rate 66 /min 66 /min MEDENT ([facility]) Diastolic blood pressure 81 mm[Hg] 81 mm[Hg] MEDENT ([facility]) Systolic blood pressure 135 mm[Hg] 135 mm[Hg] M EDENT ([facility] ) Oxygen saturation in Arterial blood by Pulse oximetry 95 % 95 % MEDENT ([facility] Body mass index (BMI) [Ratio] 33.7 kg/m2 33.7 k g/m2 MEDENT ([facility] [place] body weight 115 [lb_av] 115 [lb_av] MEDEN T ([facility] Body weight 190.00 [lb_av] 190.00 [lb_av] MEDEN T ([facility] Body height 63 [in_i] 63 [in_i] MEDENT ([facility] 5'3" Respiratory rate 18 [...] blood pressure 78 mm[Hg] 78 mm[Hg] eCW1 ([facility]) Systolic blood pressure 122 mm[Hg] 122 mm[Hg] e CW1 ([facility]) Body mass index (BMI) [Ratio] 32.51 kg/m2 32.51 kg/m2 eCW1 ([facility]) Body height 64.5 [in_i] 64.5 [in_i] eCW1 ([facility]) Body weight 87.27 kg 87.27 kg eCW1 ([facility]) Body weight 192.4 [lb_av] 192.4 [lb_av] eCW1 ([facility]) Body temperature 96.8 [degF] 96.8 [degF] MEDENT ([facility]) Body temperature 96.9 [degF] 96.9 [degF] MEDENT ([facility], ) Diastolic blood pressure 72 mm[Hg] 72 mm[Hg] eCW1 ([facility]) Systolic blood pressure 122 mm[Hg] 122 mm[Hg] e CW1 ([facility]) Body mass index (BMI) [Ratio] 32.92 kg/m2 32.92 kg/m2 W1 ([facility]) Body height 64.5 [in_i] 64.5 [in_i] eCW1 ([facility]) Body weight 88.36 kg 88.36 kg W1 ([facility]) Body weight 194.8 [lb_av] 194.8 [lb_av] eCW1 ([facility]) Body surface area Derived from formula 1.94 m2 1.94 m2 [facility], ) Body weight 87.998 kg 87.998 kg [facility], ) [place] body weight 120 [lb_av] 120 [lb_av] MEDEN T ([facility], ) Body mass index (BMI) [Ratio] 33.0 kg/m2 33.0 k g/m2 [facility], ) Body weight 194.00 [lb_av] 194.00 [lb_av] MEDEN T ([facility], ) Body height 64.25 [in_i] 64.25 [in_i] MEDENT ([facility], ) 5'4.25" Body temperature 98.1 [degF] 98.1 [degF] MEDENT ([facility], ) Respiratory rate 16 /min 16 /min MEDENT ( [facility]) Heart rate 80 /min 80 /min [facility], ) Diastolic blood pressure 72 mm[Hg] 72 mm[Hg] MEDENT ([facility], ) Systolic blood pressure 138 mm[Hg] 138 mm[Hg] M EDENT ([facility], ) Oxygen saturation in Arterial blood by Pulse oximetry 94 % 94 % MEDENT ([facility] Body mass index (BMI) [Ratio] 33.7 kg/m2 33.7 k g/m2 MEDENT ([facility] [place] body weight 115 [lb_av] 115 [lb_av] MEDEN T ([facility] Body weight 190.00 [lb_av] 190.00 [lb_av] MEDEN T ([facility] Body height 63 [in_i] 63 [in_i] MEDENT ([facility] 5'3" Respiratory rate 14 /min 14 /min MEDENT ( [facility] Heart rate 68 /min 68 /min MEDENT ([facility] Body temperature 98.1 [degF] 98.1 [degF] MEDENT ([facility] Diastolic blood pressure 84 mm[Hg] 84 mm[Hg] MEDENT ([facility] Systolic blood pressure 128 mm[Hg] 128 mm[Hg] M EDENT ([facility] Diastolic blood pressure 90 mm[Hg] 90 mm[Hg] eCW1 ([facility]) Systolic blood pressure 118 mm[Hg] 118 mm[Hg] e CW1 ([facility]) Body mass index (BMI) [Ratio] 31.94 kg/m2 31.94 kg/m2 eCW1 ([facility]) Body height 64.5 [in_i] 64.5 [in_i] W1 ([facility]) Body weight 85.73 kg 85.73 kg W1 ([facility]) Body weight 189 [lb_av] 189 [lb_av] eCW1 ([facility]) Diastolic blood pressure 68 mm[Hg] 68 mm[Hg] eCW1 ([facility]) Systolic blood pressure 122 mm[Hg] 122 mm[Hg] e CW1 ([facility]) Body temperature 97.6 [degF] 97.6 [degF] eCW1 ( [facility]) Respiratory rate 18 /min 18 /min eCW1 ([facility]) Heart rate 77 /min 77 /min eCW1 ([facility]) Body mass index (BMI) [Ratio] 32.12 kg/m2 32.12 kg/m2 eCW1 ([facility]) Body height 64.5 [in_i] 64.5 [in_i] eCW1 ([facility]) Body weight 86.23 kg 86.23 kg eCW1 ([facility]) Body weight 190.1 [lb_av] 190.1 [lb_av] eCW1 ([facility]) Diastolic blood pressure 70 mm[Hg] 70 mm[Hg] eCW1 ([facility]) Systolic blood pressure 124 mm[Hg] 124 mm[Hg] e CW1 ([facility]) Body mass index (BMI) [Ratio] 32.21 kg/m2 32.21 kg/m2 eCW1 ([facility]) Body height 64.5 [in_i] 64.5 [in_i] eCW1 ([facility]) Body weight 86.45 kg 86.45 kg eCW1 ([facility]) Body weight 190.6 [lb_av] 190.6 [lb_av] eCW1 ([facility]) Diastolic blood pressure 82 mm[Hg] 82 mm[Hg] eCW1 ([facility]) Systolic blood pressure 126 mm[Hg] 126 mm[Hg] e CW1 ([facility]) Body mass index (BMI) [Ratio] 32.11 kg/m2 32.11 kg/m2 eCW1 ([facility]) Body height 64.5 [in_i] 64.5 [in_i] eCW1 ([facility]) Body weight 190 [lb_av] 190 [lb_av] eCW1 ([facility]) Body weight 193 [lb_av] 193 [lb_av] eCW1 ([facility]) Diastolic blood pressure 80 mm[Hg] 80 mm[Hg] eCW1 ([facility]) Systolic blood pressure 132 mm[Hg] 132 mm[Hg] e CW1 ([facility]) Body temperature 97.7 [degF] 97.7 [degF] eCW1 ( [facility]) Respiratory rate 18 /min 18 /min eCW1 ([facility]) Heart rate 74 /min 74 /min eCW1 ([facility]) Body mass index (BMI) [Ratio] 32.61 kg/m2 32.61 kg/m2 W1 ([facility]) Body height 64.5 [in_i] 64.5 [in_i] eCW1 ([facility]) Diastolic blood pressure 62 mm[Hg] 62 mm[Hg] eCW1 ([facility]) Systolic blood pressure 130 mm[Hg] 130 mm[Hg] e CW1 ([facility]) Body temperature 97.4 [degF] 97.4 [degF] eCW1 ( [facility]) Respiratory rate 18 /min 18 /min eCW1 ([facility]) Heart rate 65 /min 65 /min eCW1 ([facility]) Body mass index (BMI) [Ratio] 31.94 kg/m2 31.94 kg/m2 eCW1 ([facility]) Body height 64.5 [in_i] 64.5 [in_i] eCW1 ([facility]) Body weight 189 [lb_av] 189 [lb_av] eCW1 ([facility]) Heart rate 64 /min 64 /min MEDENT ([facility] Body temperature 98.6 [degF] 98.6 [degF] MEDENT ([facility] Diastolic blood pressure 84 mm[Hg] 84 mm[Hg] MEDENT ([facility] Systolic blood pressure 124 mm[Hg] 124 mm[Hg] M EDDANIELLA ([facility] Oxygen saturation in Arterial blood by Pulse oximetry 98 % 98 % EVELYN ([facility] Body mass index (BMI) [Ratio] 33.7 kg/m2 33.7 k g/m2 EVELYN ([facility] [place] body weight 115 [lb_av] 115 [lb_av] MEDEN T ([facility] Body weight 190.00 [lb_av] 190.00 [lb_av] MEDEN T ([facility] Body height 63 [in_i] 63 [in_i] EVELYN ([facility] 5'3" Respiratory rate 14 /min 14 /min EVELYN ( [facility] Diastolic blood pressure 72 mm[Hg] 72 mm[Hg] eCW1 ([facility]) Systolic blood pressure 120 mm[Hg] 120 mm[Hg] e CW1 ([facility]) Body temperature 97.7 [degF] 97.7 [degF] eCW1 ( [facility]) Respiratory rate 18 /min 18 /min eCW1 ([facility]) Heart rate 61 /min 61 /min eCW1 ([facility]) Body mass index (BMI) [Ratio] 32.44 kg/m2 32.44 kg/m2 eCW1 ([facility]) Body height 64.5 [in_i] 64.5 [in_i] eCW1 ([facility]) Body weight 192 [lb_av] 192 [lb_av] eCW1 ([facility]) Diastolic blood pressure 72 mm[Hg] 72 mm[Hg] eCW1 ([facility]) Systolic blood pressure 120 mm[Hg] 120 mm[Hg] e CW1 ([facility]) Body temperature 98.7 [degF] 98.7 [degF] eCW1 ( [facility]) Respiratory rate 16 /min 16 /min eCW1 ([facility]) Heart rate 86 /min 86 /min eCW1 ([facility]) Body mass index (BMI) [Ratio] 33.29 kg/m2 33.29 kg/m2 eCW1 ([facility]) Body height 64.5 [in_i] 64.5 [in_i] W1 ([facility]) Body weight 89.36 kg 89.36 kg eCW1 ([facility]) Body weight 197 [lb_av] 197 [lb_av] eCW1 ([facility]) Body mass index (BMI) [Ratio] 34.9 kg/m2 34.9 k g/m2 MEDENT ([facility]) Body weight 200.00 [lb_av] 200.00 [lb_av] MEDEN T ([facility]) Body height 63.5 [in_i] 63.5 [in_i] MEDENT ([facility]) 5'3.50" Body temperature 98.0 [degF] 98.0 [degF] MEDENT ([facility]) Oxygen saturation in Arterial blood by Pulse oximetry 97 % 97 % MEDENT ([facility] Body mass index (BMI) [Ratio] 36.0 kg/m2 36.0 k g/m2 MEDENT ([facility] [place] body weight 115 [lb_av] 115 [lb_av] MEDEN T ([facility] Body weight 203.00 [lb_av] 203.00 [lb_av] MEDEN T ([facility] Body height 63 [in_i] 63 [in_i] MEDENT ([facility] 5'3" Respiratory rate 16 [...] Pulse oximetry 97 % 97 % MEDENT ([facility] Body mass index (BMI) [Ratio] 36.0 kg/m2 36.0 k g/m2 MEDENT ([facility] Body weight 203.00 [lb_av] 203.00 [lb_av] MEDEN T ([facility] Body height 63 [in_i] 63 [in_i] MEDENT ([facility] 5'3" Respiratory rate 13 /min 13 /min MEDENT ( [facility] Heart rate 82 /min 82 /min MEDDANIELLA ([facility] Body temperature 98.0 [degF] 98.0 [degF] EVELYN ([facility] Diastolic blood pressure 78 mm[Hg] 78 mm[Hg] EVELYN ([facility] Systolic blood pressure 124 mm[Hg] 124 mm[Hg] M EDDANIELLA ([facility] Patient Treatment Plan of Care Planned Activity Planned Date Details Description Data Source (s) Xarelto 20 MG 10/19/2020 12:00:00 AM EST NETSMART ([facility]) Anastrozole 1 MG 10/19/2020 12:00:00 AM EST NETSMART ([facility]) Oxybutynin Chloride ER 5 MG 10/19/2020 12:00:00 AM EST NETSMART ([facility]) oxyCODONE-Acetaminophen 5-325 MG 10/19/2020 12:00:00 AM EST NETSMART ([facility]) Omeprazole 20 MG 10/19/2020 12:00:00 AM EST NETSMART ([facility]) Creon 10/19/2020 12:00:00 AM EST N ETSMART ([facility]) Tylenol Extra Strength 500 MG 10/19/2020 12:00:00 AM EST NETSMART ([facility]) Calcium 600 600 MG 10/19/2020 12:00:00 AM EST NETSMART ([facility]) B49-Mwalrd 1 MG 10/19/2020 12:00:00 AM EST NETSMART ([facility]) Vitamin D3 2000 UNIT 10/19/2020 12:00:00 AM EST NETSMART ([facility]) Turmeric Curcumin 500 MG 10/19/2020 12:00:00 AM EST NETSMART ([facility]) Biotin 13427 MCG 10/19/2020 12:00:00 AM EST NETSMART ([facility]) Multivitamin 10/19/2020 12:00:00 AM EST N ETSMART ([facility]) Vitamin C 500 MG 10/19/2020 12:00:00 AM EST NETSMART ([facility]) PreserVision AREDS 10/19/2020 12:00:00 AM EST NETSMART ([facility]) Collagen Hydrolysate 10/19/2020 12:00:00 AM EST NETSMART ([facility]) 24 HR Oxybutynin chloride 5 MG Extended Release Oral T ablet 09/06/2020 12:00:00 AM EST eCW1 ([facility])
[2020-10-24 13:40] VITALS: BP 126/75
== END 2020-10-24 13:59 | disposition home or self-care (01) ==
LOC: M ED 10:42
DX: G89.18 Other acute postprocedural pain (principal); M25.562 Pain in left knee; I70.202 Unspecified atherosclerosis of native arteries of extremities, left leg; Z96.652 Presence of left artificial knee joint; K21.9 Gastro-esophageal reflux disease without esophagitis; Z87.440 Personal history of urinary (tract) infections; Z85.3 Personal history of malignant neoplasm of breast; M54.9 Dorsalgia, unspecified; Z86.718 Personal history of other venous thrombosis and embolism; Z79.899 Other long term (current) drug therapy; Z91.018 Allergy to other foods; Z88.7 Allergy status to serum and vaccine; Z88.5 Allergy status to narcotic agent

== ENCOUNTER → 2021-01-06 | Outpatient (CLI) | payer MEDICARE ==
--- NOTE | 2021-01-06 09:00 | REPMRS ---
Patient History The patient states she had a clinical breast exam in 10/2020. Patient has history of cancer in the right breast at age 65 and had previous chest radiation therapy at age 65. Family history of breast cancer at age 52 in sister. Malignant radio exam breast specimen of the right breast, May 24, 2020. Lumpectomy of both breasts, May 24, 2020. MRI guided breast biopsy of the right breast, May 05, 2020. Taking tamoxifen for 6 months. Patient states no breast complaints today. Patient has signed MRS History Sheet. Diagnostic Bilateral Mammo: January 06, 2021 - Exam #: [id number] Bilateral CC and MLO view(s) were taken. Technologist: Chary Reyes, Technologist Prior study comparison: May 05, 2020, right breast diagnostic unilateral mammo performed at [facility]. November 27, 2018, bilateral digital woman screen mammo performed at [facility]. FINDINGS: There are scattered fibroglandular densities. Screening. This patient?s lifetime risk for the development of invasive breast cancer can?t be calculated due to her age (less than 20 or greater than 85 years) or a prior history of in situ or invasive breast cancer. Digital screening (2D) mammography was performed bilaterally. Additionally, breast tomosynthesis (3D mammography) was performed bilaterally in the CC and MLO projections. Today's exam was compared to the prior exams(s). By history, the patient has no complaints of a palpable breast abnormality or other significant breast complaints. The patient is status post lumpectomy/chemo radiation therapy due to breast carcinoma. The breasts are unchanged in size and shape. There are no mihir-areas of internal architectural distortion. There are no mihir-soft tissue densities or areas of spiculation. There is unchanged post radiation skin thickening. Once again, stable benign appearing calcifications are seen. IMPRESSION: BI-RADS Category 2- Benign Findings(s). There is no evidence of malignant alteration of the breasts. Routine bilateral screening mammogram recommended at its regularly scheduled annual interval. This mammogram was read with the assistance of Luann Gutiérrez LYCEEM,an FDA approved computer aided detection system Shannon Villalba volumetric breast density category is B, there are scattered areas of fibroglandular density.r mammography. Negative x-ray reports should not delay surgical consultation if a dominant or clinically suspicious mass is present. Not all breast cancers can be identified by mammography. Therefore, we recommend that you continue to perform regular breast self-examination and physical examination and then promptly contact your physician of any concerns or changes. Adenosis and dense breasts may obscure an underlying neoplasm. Assessment: BI-RADS/ACR category 2 mammogram. Benign Findings. Recommendation Routine screening mammogram of both breasts in 1 year. Electronically Signed By: Rigoberto Mcdonald DO 01/06/21 [id number]
== END ==
LOC: M WHC 07:57
PROVIDERS: ATTEND Surgery
DX: C50.411 Malignant neoplasm of upper-outer quadrant of right female breast (principal); Z80.3 Family history of malignant neoplasm of breast; Z92.3 Personal history of irradiation; Z92.21 Personal history of antineoplastic chemotherapy
CPT/HCPCS: 77066; G0279

== ENCOUNTER → 2021-01-13 | Outpatient (CLI) | payer MEDICARE ==
[2021-01-13 13:49] LABS: HEMATOCRIT 42.4 % (36.0-47.0); HEMOGLOBIN 13.4 g/dl (12.0-15.5); MEAN CORPUSCULAR HEMOGLOBIN 30.9 pg (27.0-33.0); MEAN CORPUSCULAR HGB CONC 31.6 g/dl (32.0-36.5); MEAN CORPUSCULAR VOLUME 97.9 fl (80.0-96.0); PLATELET COUNT, AUTOMATED 260 10^3/uL (150-450); RED BLOOD COUNT 4.33 10^6/uL (4.00-5.40); WHITE BLOOD COUNT 4.2 10^3/uL (4.0-10.0)
[2021-01-13 14:21] LABS: BLOOD UREA NITROGEN 8 MG/DL (7-18); CALCIUM LEVEL 8.8 MG/DL (8.8-10.2); CARBON DIOXIDE LEVEL 30 MEQ/L (21-32); CHLORIDE LEVEL 108 MEQ/L (98-107); CREATININE FOR GFR 0.55 MG/DL (0.55-1.30); GLOMERULAR FILTRATION RATE > 60.0 (>45); GLUCOSE, FASTING 89 MG/DL (70-100); POTASSIUM SERUM 4.9 MEQ/L (3.5-5.1); SODIUM LEVEL 141 MEQ/L (136-145)
== END ==
LOC: M LAB 11:53
PROVIDERS: ATTEND Plastic Surgery Surgery of the Hand
DX: C50.411 Malignant neoplasm of upper-outer quadrant of right female breast (principal)

== ENCOUNTER → 2021-02-04 | Outpatient (CLI) | payer MEDICARE ==
[~2021-02-04] MED LIST changes: +PROL60SO SC
== END ==
LOC: M LABSMTC 08:44
PROVIDERS: ATTEND Anesthesiology
DX: Z01.812 Encounter for preprocedural laboratory examination (principal); Z20.822 Contact with and (suspected) exposure to COVID-19

== ENCOUNTER → 2021-02-08 | Outpatient (CLI) | payer MEDICARE ==
[~2021-02-08] MED LIST changes: +OXYC-517 PO
--- NOTE | 2021-02-08 10:17 | RADONC ---
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 She underwent lumpectomy with SLNB on 05/24/[address] Samaniego and completed adjuvant partial breast RT 40 Gy in 15 fractions on 08/11/21. She continues on anastrozole and prolia with Dr. Ruffin and has pending reconstruction on 02/09/[address] Muniz. Diagnosis/Treatment History Oncologic History Spring 2019 screening mammogram with right breast abnormality 05/05/20 MRI guided biopsy right breast 05/24/20 Lumpectomy and SLNB showing [id number] ER/NE+ HER2- grade 1 margins negative 07/21/20-08/11/20 40 Gy in 15 fractions partial breast RT 01/06/21 Mammogram negative Survivorship Test Due Next Last result Notes TSH, T4* 6m post-tx, then q1y N/A Carotid US* q10 y post-tx N/A Smoking cessation Assess annually if applicable Non-smoker Screening CT chest q1y if eligible per USPSTF N/A Mammograms Min q1y, if breast conservation 202101/06/21 negative CBC,CMP, Lipids q1y 2021 DEXA q2y if on AI On prolia per Dr. Ruffin Interval History Marguerite notes occasional shooting pains in the right breast. She has pending reconstruction with Dr. Muniz tomorrow. She is nervous about this but otherwise offers no additional complaints. She has no skin complaints. No swelling in the arm. Appetite and weight are stable. Current Therapy Anastrozole/Prolia Stage Stage IA right breast pT1bN0(sn)M0 ER/NE+ HER2- Grade 1 Social History: Non smoker 1 alcoholic beverage per week Allergies / Meds Allergies: Coded Allergies: FRUIT (Verified Allergy, Severe, ITCHING, THROAT SWELLING, DIFFICULTY BREATHING, 10/14/20) fresh fruits and vegetables tree nut (Verified Allergy, Severe, itching throat swells breathing, 10/14/20) morphine (Verified Allergy, Mild, ITCHING NAUSEA, 10/14/20) Protein Concentrate Whey (Verified Adverse Reaction, Intermediate, PROTEIN DRINK- SWELLING AND SHAKING, 10/14/20) tetanus toxoid, adsorbed (Verified Adverse Reaction, Intermediate, swelling reddness arm, 10/14/20) tramadol (Verified Adverse Reaction, Intermediate, FELT LIKE HEART ATTACK heaviness in chest, 10/14/20) Home Meds Active Scripts Anastrozole (Anastrozole) 1 Mg Tablet, 1 TAB PO DAILY for 90 Days, #90 TAB 3 Refills Prov:SINAN RUFFIN MD 09/15/20 Reported Medications Denosumab Injection (Prolia) 60 Mg/1 Ml Syringe, 60 MG SC [id number], SYRINGE 01/31/21 Vitamin D3/Folic Acid (Noxifol-D3 2,500 Unit-1 mg Tab) 2,500 Unit Tablet, 1 TAB PO DAILY, TAB 10/14/20 Cholecalciferol (Vitamin D3) (Vitamin D3) 50 Mcg Capsule, 50 MCG PO DAILY, CAP 10/07/20 Cyanocobalamin (Vitamin B-12) (Vitamin B-12) 1,000 Mcg Capsule, 1 CAP PO DAILY for 30 Days, #30 CAP 10/07/20 Oxybutynin Chloride (Oxybutynin Chloride ER) 5 Mg Tab.er.24, 1 TAB PO DAILY 10/07/20 Pancreatic Enzymes (Creon Dr 24,000 Units Capsule) 1 Each Capsule.dr, 1 EA PO TID, CAPCR 10/07/20 Multivitamin with Minerals (Multiple Vitamin) 1 Each Tablet, 1 TAB PO DAILY, TAB 07/13/20 Collagenase Clostridium Hist. (Collagenase) 1 Each Powder.ea., 1 POW XX DAILY 07/13/20 Vit A/Vit C/Vit E/Zinc/Copper (Preservision Areds Softgel) 1 Each Capsule, 1 CAP PO DAILY, CAP 07/05/20 Calcium Carbonate (Calcium) 600 Mg Tablet, 600 MG PO DAILY, TAB 05/20/20 Omeprazole (Omeprazole) 20 Mg Capsule.dr, 20 MG PO DAILY, CAP 05/20/20 Ascorbic Acid (Vitamin C) 500 Mg Tablet, 500 MG PO DAILY for 30 Days, #60 TAB 03/01/20 Biotin (Biotin) 10 Mg Tablet, 10 MG PO DAILY, TAB 12/19/18 Review of Systems Review of Systems Constitutional: Denies: Fatigue, Weight Loss Eyes: Denies: Pain HEENT: Denies: Head Aches Skin: Denies: Rash Breast: Denies: New Breast Lumps / Masses, Nipple Retraction, Nipple Discharge, Breast Skin Changes, Breast Pain or Tenderness Pulmonary: Denies: Dyspnea, Cough Cardiovascular: Denies: Chest Pain, Palpitations Gastrointestinal: Denies: Abdominal Pain Musculoskeletal: Denies: Neck pain, Arm pain, Back pain Neurological: Denies: Weakness, Numbness Psych: Reports: Mood Normal Physical Examination Vital Signs Wt 186 lbs T 97.4 P 55 RR 16 BP 122/77 97% Pain 0 Fatigue 0 General Exam: Positive: Alert, Cooperative, No Acute Distress Eye Exam: Positive: PERRLA, EOMI ENT EXAM: Positive: Atraumatic, Mucous membr. moist/pink Neck Exam: Positive: Supple Chest Exam: Positive: Clear to auscultation Heart Exam: Positive: Rate Normal Breast Exam: Positive: Symmetric Bilaterally (Ptosis BL), Skin Changes (Mild hyperpigmentation right breast); Negative: Lumps or Masses (Palpable surgical site medial right breast WNL), Nipple Retraction, Nipple Discharge Extremity Exam: Negative: Edema Neuro Exam: Positive: Normal Gait, Normal Speech, Cranial Nerves 3-12 NL Psych Exam: Positive: Mental status NL Diagnostic and Laboratory Diagnostic Review Radiologic images, relevant labs and pathology reports were personally reviewed and discussed with Ms. Dooley. Assessment and Plan Impression Assessment Ms. 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 She underwent lumpectomy with SLNB on 05/24/[address] Samaniego and completed adjuvant partial breast RT 40 Gy in 15 fractions on 08/11/21. She continues on anastrozole and prolia with Dr. Ruffin and has pending reconstruction on 02/09/[address] Muniz. She is doing well. She has mild hyperpigmentation of the right breast as her only residual RT effect. She has reconstruction tomorrow. She has no evidence of disease on exam. Her mammogram was normal. I discussed seeing her again in 6 months, and then if all is well, given her follow up with Dr. Ruffin, I could see her annually thereafter. She was agreeable to this plan. Performance Status ECOG 0 Plan Follow up in 6 months Ms. Dooley was encouraged to call with questions or concerns in the interim period. Billing Statement Total time of [25] minutes was spent preparing for the visit [2], obtaining HPI [5], examining the patient [3], reviewing diagnostic tests [2], discussing management options [3], coordinating care [2], and writing this note [8]. SEAN FROST MD Feb 08, 2021 10:17
== END ==
LOC: M ONCR 09:25
PROVIDERS: ATTEND General Practice
DX: C50.511 Malignant neoplasm of lower-outer quadrant of right female breast (principal); Z79.899 Other long term (current) drug therapy; Z88.5 Allergy status to narcotic agent; Z88.7 Allergy status to serum and vaccine; Z91.018 Allergy to other foods; Z92.3 Personal history of irradiation

== ENCOUNTER 2021-02-09 09:53 | Day surgery (SDC) | payer MEDICARE ==
[~2021-02-09] VITALS: Ht 160 cm; Wt 82.5 kg
[~2021-02-09 09:53] MED LIST changes: +LIDOCAINE 2% 100MG/5ML SDV (FOR ANES.) As Ordered ONE; +LR 1,000 ML IV ONE; +MIDAZOLAM INJ 2MG/2ML VIAL (J2250 PER 1MG) As Ordered ONE; +ONDANSETRON 4MG/2ML VIAL As Ordered ONE; -OXYC-517 PO; +ROCURONIUM BROMIDE 50 MG/5 ML VIAL As Ordered ONE; +ceFAZolin SOD 1 GM in D5W MINI-BAG PLUS 50 ML IV ONE; +dexameTHASONE 4 MG/ML 1ML VIAL (J1100 PER 1MG) As Ordered ONE; +fentaNYL 250 MCG/5 ML INJECTION (J3010) As Ordered ONE; +propofoL 200 MG/20 ML VIAL As Ordered ONE
[2021-02-09] MEDS ORDERED: BUPIVACAINE LIPOSOME/PF 1.3% 20ML VIAL (13.3MG/ML)(EXPAREL)(C9290 PER1MG) As Ordered ONE (11:11)
[2021-02-09] MEDS ORDERED: BACITRACIN PWD 50,000 UNITS VIAL As Ordered ONE (11:11)
[2021-02-09] MEDS ORDERED: ROCURONIUM BROMIDE 50 MG/5 ML VIAL As Ordered ONE (12:41)
[2021-02-09] MEDS ORDERED: SUGAMMADEX SODIUM 500 MG/5 ML VIAL (BRIDION) As Ordered ONE (12:55)
[2021-02-09] MEDS ORDERED: ACETAMINOPHEN 1000MG 100ML IV BTL (OFIRMEV) (J0131 PER 10MG) As Ordered ONE (12:55)
[2021-02-09] MEDS ORDERED: LACRILUBE (AKWA TEARS) OPHTH OINT 3.5 GM As Ordered ONE (12:58)
[2021-02-09] MEDS ORDERED: HYDROmorphone HCL 2 MG/ML 1ML VIAL (J1170) As Ordered ONE (12:59)
--- NOTE | 2021-02-09 15:11 | POST-OPPD ---
Postoperative Procedure Note Date Of Procedure: Feb 09, 2021 PREOPERATIVE DIAGNOSIS: Right breast cancer. Right breast asymmetry s/p lumpectomy with radiation. POSTOPERATIVE DIAGNOSIS: same FINDINGS: Right breast with post radiation changes, right side smaller than left. PROCEDURE: Breast reconstruction with Right breast mastopexy and left breast reduction for symmetry. SURGEON: Dr George CONCRETE TRUCK DRIVER: Dr Samaniego ANESTHESIA: general SPECIMENS: Right breast tissue, Left breast tissue. Culture Right breast collection. ESTIMATED BLOOD LOSS: 100 cc REPLACED: none DRAINS: 10 mm JEAN x 2 COMPLICATIONS: none POSTOPERATIVE CONDITION: stable LEAH GEORGE DO Feb 09, 2021 15:11
--- NOTE | 2021-02-09 15:12 | ROOPDOC ---
[facility] Report Of Operation Report of Operation Date of surgery February 09, 2021 PREOPERATIVE DIAGNOSIS: Right breast cancer. Right breast asymmetry s/p lumpectomy with radiation. POSTOPERATIVE DIAGNOSIS: same FINDINGS: Right breast with post radiation changes, right side smaller than left. PROCEDURE: Breast reconstruction with Right breast mastopexy and left breast reduction for symmetry. SURGEON: Dr George STAFF CERTIFIED NURSE MIDWIFE: Dr Samaniego ANESTHESIA: general SPECIMENS: Right breast tissue, Left breast tissue. Culture Right breast collection. ESTIMATED BLOOD LOSS: 100 cc REPLACED: none DRAINS: 10 mm JEAN x 2 COMPLICATIONS: none POSTOPERATIVE CONDITION: stable DESCRIPTION OF PROCEDURE: This is a 65-year-old female, status post right lumpectomy with sentinel lymph node biopsy and right breast radiation. Patient has postradiation and postlumpectomy asymmetry with bilateral breast ptosis. She is scheduled for reconstruction of right breast with mastopexy and left breast reduction for symmetry. Risks, benefits, and alternatives were discussed with the patient in detail, and she is ready to proceed. The day of surgery, she was marked in the upright position and informed consent was obtained. She measured 28 cm from sternal notch to nipple on right and 33 on the left, IMF at 22 cm bilaterally. She was brought into the operating room and placed in the supine position. Preoperative antibiotics given. Sequential pneumatic stocking were placed on the lower calves. General anesthesia was induced. She was prepped and draped in the usual sterile fashion. We started our procedure on the right side. This is the side status post radiation with permanent tissue changes. Patient has skin indentation on the lateral part where the excision was done. Her nipple areolar complex was outlined 45 mm in diameter, and the patient was marked according superior medial pedicle. We started our incision by scoring the nipple areolar complex area, and then dissection was continued to include the area of initial lumpectomy. Area of lumpectomy has encapsulated collection of yellow thick order less fluid. It was cultured and sent to pathology. The capsule was completely excised and sent to pathology together with the specimen. Inferior lateral portion of the breast was resected. Hemostasis was obtained using electrocautery. The pedicle was de-epithelialized using Huber scissors, good perfusion to the nipple at all times. Wound was irrigated with Bacitracin solution. My automotive parts counter assistant Dr. Samaniego reexamined the lumpectomy cavity, than provided analgesia with local block by using Exparel 6 cc to infiltrate in the Pectoralis muscle as well as the breast tissue. Aerosol Tisseel was used for hemostasis thought the wound. Than pedicle was turned superior to its new l ocation at 22 cm from sternal notch. The mound was re-created using conforming 0 Vicryl sutures. Pillars were closed with interrupted 3-0 Monocryl sutures. The vertical limb was 8.5 cm. Excess tissue inferiorly was measured and resected, creating the horizontal scar. Nipple area complex was brought into view through the new opening and sutured in place with 3-0 and 4-0 Monocryl sutures and a 5-0 plain. A 10 mm Matthew-Day drain was placed through the lateral portion of the horizontal incision. Then we turned our attention to the left side. Mirror procedure was carried out. Again, resection was done according to superior-medial pedicle using electrocautery and PEEK cautery. Hemostasis was obtained. The pedicle was in good viable condition. Exparel was infiltrated through the pectoralis muscle and the breast tissue 6 cc. Than pedicle was turned superior to its new location at 22 cm from sternal notch. The mound was re-created using conforming 0 Vicryl sutures. Pillars were closed with interrupted 3-0 Monocryl sutures. The vertical limb was 8.5 cm. Excess tissue inferiorly was measured and resected, creating the horizontal scar. Nipple area complex was brought into view through the new opening and sutured in place with 3-0 and 4-0 Monocryl sutures and a 5-0 plain gut suture in interrupted fashion. A 10 mm Matthew-Day drain was placed through the lateral portion of the horizontal incision. Remaining Exparel injected in the horizontal incision. Total Exparel use 20 cc. Resected tissue sent to pathology. Good symmetry was achieved between the breasts. However there is marked at difference in tissue texture between right and left side. Right being harder and less pliable side. Dressings were applied to vertical and horizontal incision: Prineo. Nipples areolar complex: Xeroform and a bulky dressing with a surgical bra. Patient was extubated in the operating room without difficulty and was transferred to the recovery room in stable condition. LEAH GEORGE DO Feb 09, 2021 15:12
[2021-02-09] MEDS ORDERED: ONDANSETRON 4MG/2ML VIAL IV PRN ×2 (15:15→15:25)
[2021-02-09] MEDS ORDERED: ACETAMINOPHEN TAB 650MG DOSE (2X325MG) PO PRN (15:15)
[2021-02-09] MEDS ORDERED: LR 1,000 ML IV SCH (15:25)
[2021-02-09] MEDS ORDERED: oxyCODONE 5MG TAB PO PRN (15:25)
[2021-02-09] MEDS ORDERED: fentaNYL 100 MCG/2 ML INJECTION (J3010) IV PRN (15:25)
[2021-02-09 17:00] VITALS: BP 108/57
[2021-02-09 17:30] VITALS: BP 119/77
[2021-02-09 18:00] VITALS: BP 119/77
[2021-02-09] MEDS: CREON-24 CAPSULE PO SCH (18:00)
[2021-02-09] MEDS: LR 1,000 ML IV SCH (18:13)
[2021-02-09 19:00] VITALS: BP 123/75
[2021-02-09 20:00] VITALS: BP 129/72
[2021-02-09] MEDS: oxyCODONE 5MG TAB PO PRN (21:01)
[2021-02-09] MEDS: ceFAZolin SOD 1 GM in D5W MINI-BAG PLUS 50 ML IV SCH (21:02)
[2021-02-09 22:00] VITALS: BP 137/69
[2021-02-10] MEDS: KETOROLAC TROMETHAMINE 10 MG TAB PO PRN ×2 (01:22→11:33)
[2021-02-10 02:00] VITALS: BP 123/66
[2021-02-10] MEDS: ceFAZolin SOD 1 GM in D5W MINI-BAG PLUS 50 ML IV SCH ×2 (04:01→12:00)
[2021-02-10] MEDS: LR 1,000 ML IV SCH (04:02)
[2021-02-10 06:00] VITALS: BP 118/64
[2021-02-10] MEDS: oxyCODONE 5MG TAB PO PRN ×2 (06:59→14:00)
[2021-02-10] MEDS ORDERED: CYANOCOBALAMIN 500 MCG TAB PO SCH (09:00)
[2021-02-10] MEDS ORDERED: OCUVITE 1 TAB PO SCH (09:00)
[2021-02-10] MEDS ORDERED: ASCORBIC ACID 500 MG TAB PO SCH (09:00)
[2021-02-10] MEDS ORDERED: oxyBUTYnin *DITROPAN XL* 5 MG TABCR PO SCH (09:00)
[2021-02-10] MEDS ORDERED: OMEPRAZOLE 20 MG CAP PO SCH (09:00)
[2021-02-10] MEDS: CREON-24 CAPSULE PO SCH ×2 (10:07→11:33)
--- NOTE | 2021-02-10 11:57 | IPNPDOC ---
Subjective General Date Seen: Feb 10, 2021 Subject Chief Complaint/History The patient is a 65-year-old female admitted with a reason for visit of Malignant Neoplasm, Acquired Deformity S/P Lumpect. Patient is doing well. Pain controlled. She is ambulating, feeling good. Tolerating diet. Current Medications Current Medications Current Medications Medications (Trade) Dose Ordered Sig/Valarie Route PRN Reason Start Time Stop Time Status Last Admin Dose Admin Acetaminophen (Tylenol Tab) 650 mg Q6H PRN PO MILD PAIN (PS 1-4) 02/09/21 15:15 Ascorbic Acid (Vitamin C) 500 mg DAILY PO 02/10/21 09:00 02/10/21 10:04 Cefazolin Sodium 1 gm/Dextrose 50 ml @ 100 mls/hr Q8H IV 02/09/21 20:00 02/10/21 04:01 Cyanocobalamin (Vitamin B12) 1,000 mcg DAILY PO 02/10/21 09:00 02/10/21 10:04 Fentanyl Citrate (Sublimaze) 25 mcg Q5MP PRN IV PAIN LEVEL 5-10 02/09/21 15:25 02/09/21 17:25 DC Ketorolac Tromethamine (ToRADol) 10 mg Q6HP PRN PO MODERATE PAIN (PS 5-7) 02/09/21 15:15 02/14/21 15:14 02/10/21 11:33 Lactated Ringer's 1,000 ml @ 75 mls/hr [id number] IV 02/09/21 16:00 02/10/21 04:02 Lactated Ringer's 1,000 ml @ 100 mls/hr Q10H IV 02/09/21 15:25 02/09/21 17:25 DC Multivitamins (Ocuvite(I-Emily)) 1 tab DAILY PO 02/10/21 09:00 02/10/21 10:04 Omeprazole (PriLOSEC) 20 mg DAILY PO 02/10/21 09:00 02/10/21 10:04 Ondansetron HCl (ZOFRAN INJection) 4 mg Q4H PRN IV NAUSEA OR VOMITING 02/09/21 15:15 Ondansetron HCl (ZOFRAN INJection) 4 mg Q4HP PRN IV NAUSEA OR VOMITING 02/09/21 15:25 6/10/21 17:25 DC 02/09/21 16:05 Oxybutynin Chloride (Ditropan Xl) 10 mg DAILY PO 02/10/21 09:00 02/10/21 10:04 Oxycodone HCl (Roxicodone, Oxyir) 5 mg ASDIRECTED PRN PO PAIN LEVEL 1-4 02/09/21 15:25 02/09/21 17:25 DC Oxycodone HCl (Roxicodone, Oxyir) 5 mg Q6HP PRN PO PAIN LEVEL 8-10 02/09/21 15:15 02/10/21 06:59 Pancrelipase (Creon-24) 1 ea WM PO 02/09/21 18:00 02/10/21 11:33 Allergies Coded Allergies: FRUIT (Verified Allergy, Severe, ITCHING, THROAT SWELLING, DIFFICULTY BREATHING, 10/14/20) fresh fruits and vegetables tree nut (Verified Allergy, Severe, itching throat swells breathing, 10/14/20) Protein Concentrate Whey (Verified Adverse Reaction, Intermediate, PROTEIN DRINK- SWELLING AND SHAKING, 10/14/20) tetanus toxoid, adsorbed (Verified Adverse Reaction, Intermediate, swelling reddness arm, 10/14/20) tramadol (Verified Adverse Reaction, Intermediate, FELT LIKE HEART ATTACK heaviness in chest, 10/14/20) morphine (Verified Adverse Reaction, Mild, ITCHING NAUSEA, 02/09/21) Objective Physical Examination Examination GENERAL APPEARANCE:Patient seen, laying in bed, awake, alert, and oriented. Comfortable, in no acute distress. SKIN: Warm and moist. BREAST: Right and left soft, non-tender incisions intact. JEAN drains: L30, R 10 cc/24 hr. NAC: Viable, warm, symmetrical, mild post-op ecchymosis, left NAC with more ecchymosis, warm, viable, no expanding hematoma. LUNGS: Clear to auscultation bilaterally. No wheezing appreciated. HEART: No chest wall abnormalities. Regular rate and rhythm with no murmurs appreciated. ABDOMEN: Abdomen is soft, non-tender, non-distended. Incision intact. EXTREMITIES: No edema identified. No calf tenderness. Vital Signs Vital Signs Date Time Temp Pulse Resp B/P (MAP) Pulse Ox O2 Delivery O2 Flow Rate FiO2 02/10/21 07:29 16 02/10/21 06:00 98.2 61 118/64 (82) 96 Room Air 02/09/21 16:15 2.0 I&Os I&O- Last 24 Hours up to 6 AM 02/10/21 06:00 Intake Total 5018 ml Output Total 2748 ml Balance 2270 ml Laboratory Data Microbiology Microbiology 02/09/21 Gram Stain - Final, Resulted 02/09/21 Wound Culture, Resulted Pending 02/09/21 Anaerobic Culture, Received Pending Impression Right breast cancer, s/p radiation therapy. Breast asymmetry. S/p right breast reconstruction with mastopexy and left breast reduction for symmetry. Doing well. Stable for discharge. Instructions given. Dressings changed. F/up plastic surgery. Plan / VTE VTE Prophylaxis Ordered?: Yes LEAH GEORGE DO Feb 10, 2021 11:57
[2021-02-10] MEDS ORDERED: OXYC-517 PO (12:01)
== END 2021-02-10 14:30 | disposition home or self-care (01) ==
LOC: M SDC 09:53 → M MS5PR 17:00 → M SDC 02-10 14:30
PROVIDERS: ATTEND Plastic Surgery Surgery of the Hand
DX: C50.411 Malignant neoplasm of upper-outer quadrant of right female breast (principal); N64.89 Other specified disorders of breast; N64.81 Ptosis of breast; Z92.21 Personal history of antineoplastic chemotherapy; Z92.3 Personal history of irradiation; Z88.5 Allergy status to narcotic agent; Z88.7 Allergy status to serum and vaccine; Z91.010 Allergy to peanuts; Z91.018 Allergy to other foods; Z79.899 Other long term (current) drug therapy
CPT/HCPCS: 19316; 19318; 87070; 87075; 87205; 88305; 96360; 96361; C9290; J0131; J0690; J1100; J1170; J2250; J2405; J3010

== ENCOUNTER → 2021-08-09 | Outpatient (CLI) | payer MEDICARE ==
[~2021-08-09] MED LIST changes: +ECOT81TA5 PO; -LIDOCAINE 2% 100MG/5ML SDV (FOR ANES.) As Ordered ONE; -LR 1,000 ML IV ONE; -MIDAZOLAM INJ 2MG/2ML VIAL (J2250 PER 1MG) As Ordered ONE; +OMEP40CA4 PO; -OMEP40CA97 PO; -ONDANSETRON 4MG/2ML VIAL As Ordered ONE; +OXYC-517 PO; -ROCURONIUM BROMIDE 50 MG/5 ML VIAL As Ordered ONE; -ceFAZolin SOD 1 GM in D5W MINI-BAG PLUS 50 ML IV ONE; -dexameTHASONE 4 MG/ML 1ML VIAL (J1100 PER 1MG) As Ordered ONE; -fentaNYL 250 MCG/5 ML INJECTION (J3010) As Ordered ONE; -propofoL 200 MG/20 ML VIAL As Ordered ONE
--- NOTE | 2021-08-09 16:02 | RADONC ---
Radiation Oncology Hx/FUP Radiation Oncology Hx/FUP Date of Service: Aug 09, 2021 Pt Identifier Marguerite Dooley is a 66 year old female seen for a followup visit today at the department of radiation oncology for a history of screening mammogram detected pT1bN0(sn)M0 ER/[place]+ HER2- Grade 1 IDC of the lower outer right breast. She underwent lumpectomy with SLNB on 05/24/[address] Samaniego and completed adjuvant partial breast RT 40 Gy in 15 fractions on 08/11/21. She continues on anastrozole and prolia with Dr. Ruffin. She had reconstructive surgery with Dr. George on 02/09/21. Diagnosis/Treatment History Oncologic History Spring 2019 screening mammogram with right breast abnormality 05/05/20 MRI guided biopsy right breast 05/24/20 Lumpectomy and SLNB showing [id number] ER/WY+ HER2- grade 1 margins negative 07/21/20-08/11/20 40 Gy in 15 fractions partial breast RT 01/06/21 Mammogram negative Test Due Next Last result Notes TSH, T4* 6m post-tx, then q1y N/A Carotid US* q10 y post-tx N/A Smoking cessation Assess annually if applicable Non-smoker Screening CT chest q1y if eligible per USPSTF N/A Mammograms Min q1y, if breast conservation December negative CBC,CMP, Lipids q1y 2021 DEXA q2y if on AI On prolia per Dr. Ruffin Interval History Wendy complains of continued and stable transient pains in the lateral right breast as well as numbness in the right hand, which is new and comes on with use of the hand. She has mammographic and medical oncology follow up, next later this week for prolia. She continues AI without apparent side effects. Current Therapy Anastrozole/prolia Stage Stage IA right breast pT1bN0(sn)M0 ER/[place]+ HER2- Grade 1 Social History: Non smoker 1 alcoholic beverage per week Allergies / Meds Allergies: Coded Allergies: FRUIT (Verified Allergy, Severe, ITCHING, THROAT SWELLING, DIFFICULTY BREATHING, 10/14/20) fresh fruits and vegetables tree nut (Verified Allergy, Severe, itching throat swells breathing, 10/14/20) Protein Concentrate Whey (Verified Adverse Reaction, Intermediate, PROTEIN DRINK- SWELLING AND SHAKING, 10/14/20) tetanus toxoid, adsorbed (Verified Adverse Reaction, Intermediate, swelling reddness arm, 10/14/20) tramadol (Verified Adverse Reaction, Intermediate, FELT LIKE HEART ATTACK heaviness in chest, 10/14/20) morphine (Verified Adverse Reaction, Mild, ITCHING NAUSEA, 02/09/21) Home Meds Active Scripts Oxycodone HCl (Oxycodone HCl) 5 Mg Tablet, 5 MG PO Q6HP PRN for PAIN LEVEL 8-10 MDD 4 for 5 Days, #20 TAB Prov:LEAH GEORGE DO 02/10/21 Anastrozole (Anastrozole) 1 Mg Tablet, 1 TAB PO DAILY for 90 Days, #90 TAB 3 Refills Prov:SINAN RUFFIN MD 09/15/20 Reported Medications Aspirin (Ecotrin) 81 Mg Tablet.dr, 1 TAB PO DAILY for pain for 30 Days, #30 TAB 04/14/21 Denosumab Injection (Prolia) 60 Mg/1 Ml Syringe, 60 MG SC [id number], SYRINGE 01/31/21 Vitamin D3/Folic Acid (Noxifol-D3 2,500 Unit-1 mg Tab) 2,500 Unit Tablet, 1 TAB PO DAILY, TAB 10/14/20 Cholecalciferol (Vitamin D3) (Vitamin D3) 50 Mcg Capsule, 50 MCG PO DAILY, CAP 10/07/20 Cyanocobalamin (Vitamin B-12) (Vitamin B-12) 1,000 Mcg Capsule, 1 CAP PO DAILY for 30 Days, #30 CAP 10/07/20 Pancreatic Enzymes (Iam Miller 24,000 Units Capsule) 1 Each Capsule.dr, 1 EA PO TID, CAPCR 10/07/20 Multivitamin with Minerals (Multiple Vitamin) 1 Each Tablet, 1 TAB PO DAILY, TAB 07/13/20 Collagenase Clostridium Hist. (Collagenase) 1 Each Powder.ea., 1 POW XX DAILY 07/13/20 Vit A/Vit C/Vit E/Zinc/Copper (Preservision Areds Softgel) 1 Each Capsule, 1 CAP PO DAILY, CAP 07/05/20 Calcium Carbonate (Calcium) 600 Mg Tablet, 600 MG PO DAILY, TAB 05/20/20 Omeprazole (Omeprazole) 20 Mg Capsule.dr, 20 MG PO DAILY, CAP 05/20/20 Ascorbic Acid (Vitamin C) 500 Mg Tablet, 500 MG PO DAILY for 30 Days, #60 TAB 03/01/20 Biotin (Biotin) 10 Mg Tablet, 10 MG PO DAILY, TAB 12/19/18 Review of Systems Review of Systems Constitutional: Denies: Fatigue, Weight Loss Breast: Reports: Breast Pain or Tenderness; Denies: New Breast Lumps / Masses, Nipple Retraction, Nipple Discharge Neurological: Reports: Numbness; Denies: Weakness Psych: Reports: Mood Normal, Anxiety Physical Examination Vital Signs Ht 63" Wt 186 lbs BMI 31.6 T 97.4 P 55 BP 122/77 O2 97% Pain 0 Fatigue 0 General Exam: Alert, Cooperative, No Acute Distress Eye Exam: PERRLA, EOMI ENT EXAM: Atraumatic Neck Exam: Supple; Negative: Lymphadenopathy Chest Exam: Clear to auscultation Heart Exam: Rate Normal Breast Exam: Symmetric Bilaterally, Other Breast Findings (Mild right lateral breast tenderness to palpation); Negative: Lumps or Masses, Nipple Retraction, Nipple Discharge, Skin Changes Abdomen Exam: Soft Extremity Exam: Negative: Edema Skin Exam: Nl turgor and temperature Neuro Exam: Normal Gait, Normal Speech, Cranial Nerves 3-12 NL, Other (Right arm tinel and lorenzo sign positive) Psych Exam: Mental status NL Diagnostic and Laboratory Diagnostic Review Radiologic images, relevant labs and pathology reports were personally reviewed and discussed with Ms. Dooley. Assessment and Plan Impression Assessment Ms. Dooley is a 66 year old female with a history of screening mammogram detected pT1bN0(sn)M0 ER/WY+ HER2- Grade 1 IDC of the lower outer right breast. She underwent lumpectomy with SLNB on 05/24/[address] Samaniego and completed adjuvant partial breast RT 40 Gy in 15 fractions on 08/11/21. She continues on anastrozole and prolia with Dr. Ruffin. She had reconstructive surgery with Dr. George on 02/09/21. Marguerite has evidence of right hand carpal tunnel syndrome by history and physical exam today. She has had splints and braces for this previously has not been wearing them recently. She also has some mild edema and tenderness in the surgical site/tumor bed. For both of these problems I think she would benefit from PT/OT so I will refer her. She is up to date with mammograms and has close medical oncology follow up. Therefore I will see her in 6 months time. Performance Status ECOG 0 Plan PT/OT referral for carpal tunnel RUE and right breast edema Follow up in 6 months Ms. Dooley was encouraged to call with questions or concerns in the interim period. Billing Statement Total time of [23] minutes was spent preparing for the visit [1], obtaining HPI [6], examining the patient [2], reviewing diagnostic tests [1], discussing management options [6], coordinating care [1], and writing this note [6]. SEAN FROST MD Aug 09, 2021 16:02
== END ==
LOC: M ONCR 14:03
PROVIDERS: ATTEND General Practice
DX: C50.511 Malignant neoplasm of lower-outer quadrant of right female breast (principal); R60.9 Edema, unspecified; G56.01 Carpal tunnel syndrome, right upper limb; Z92.3 Personal history of irradiation; Z88.5 Allergy status to narcotic agent; Z88.7 Allergy status to serum and vaccine; Z91.010 Allergy to peanuts; Z91.018 Allergy to other foods; Z79.891 Long term (current) use of opiate analgesic; Z79.899 Other long term (current) drug therapy

== ENCOUNTER → 2021-08-21 | Outpatient (CLI) | payer MEDICARE ==
[~2021-08-21] MED LIST changes: +COMPCHW PO; +HYDR-3713 PO; +OXYB5TAB10 PO; +TURM500C PO
[2021-08-21 17:12] LABS: IRON (FE) 93 UG/DL (50-170); MAGNESIUM LEVEL 2.3 MG/DL (1.8-2.4); PERCENT SATURATION 20.2 % (13.2-45.0); TOTAL 25(OH) VITAMIN D 50.1 NG/ML (30.0-100.0); TOTAL IRON BINDING CAPACITY 461 UG/DL (250-450); VITAMIN B12 LEVEL > 2000 PG/ML (247-911)
== END ==
LOC: M LAB 15:12
PROVIDERS: ATTEND Internal Medicine Gastroenterology
DX: R19.4 Change in bowel habit (principal); R19.7 Diarrhea, unspecified; R19.5 Other fecal abnormalities; E56.9 Vitamin deficiency, unspecified; R10.31 Right lower quadrant pain; K44.9 Diaphragmatic hernia without obstruction or gangrene; K22.70 Barrett's esophagus without dysplasia; R14.1 Gas pain; E73.9 Lactose intolerance, unspecified

== ENCOUNTER 2021-08-31 08:12 | Outpatient (RCR) | payer MEDICARE ==
[~2021-08-31 08:12] MED LIST changes: -COMPCHW PO; -HYDR-3713 PO; -OXYB5TAB10 PO; -TURM500C PO
== END 2021-09-01 ==
LOC: M PT 08:12
PROVIDERS: ATTEND General Practice
DX: C50.511 Malignant neoplasm of lower-outer quadrant of right female breast (principal); G56.01 Carpal tunnel syndrome, right upper limb

== ENCOUNTER → 2021-09-15 | Outpatient (CLI) | payer MEDICARE ==
[~2021-09-15] MED LIST changes: +COMPCHW PO; +OXYB5TAB10 PO; +TURM500C PO
== END ==
LOC: M LABSMTC 09:10
PROVIDERS: ATTEND Anesthesiology
DX: Z01.812 Encounter for preprocedural laboratory examination (principal); Z20.822 Contact with and (suspected) exposure to COVID-19

== ENCOUNTER 2021-09-19 12:29 | Outpatient (RCR) | payer MEDICARE ==
[2021-09-20] MEDS ORDERED: HYDR-3713 PO (14:24)
== END 2021-10-02 ==
LOC: M PT 12:29
PROVIDERS: ATTEND General Practice
DX: G56.01 Carpal tunnel syndrome, right upper limb (principal); C50.511 Malignant neoplasm of lower-outer quadrant of right female breast

== ENCOUNTER 2021-09-20 09:01 | Day surgery (SDC) | payer MEDICARE ==
[~2021-09-20] VITALS: Ht 160 cm; Wt 81.6 kg
[~2021-09-20 09:01] MED LIST changes: +LR 1,000 ML IV ONE; +ceFAZolin SOD 2 GM in IV 1 EA IV ONE
[2021-09-20] MEDS ORDERED: propofoL 200 MG/20 ML VIAL As Ordered ONE ×2 (10:23→12:24)
[2021-09-20] MEDS ORDERED: MIDAZOLAM INJ 2MG/2ML VIAL (J2250 PER 1MG) As Ordered ONE (10:23)
[2021-09-20] MEDS ORDERED: LIDOCAINE 2% 100MG/5ML SDV (FOR ANES.) As Ordered ONE (10:23)
[2021-09-20] MEDS ORDERED: ONDANSETRON 4MG/2ML VIAL As Ordered ONE (10:23)
[2021-09-20] MEDS ORDERED: KETOROLAC 60MG 2ML VIAL As Ordered ONE (10:23)
[2021-09-20] MEDS ORDERED: fentaNYL 100 MCG/2 ML INJECTION (J3010) As Ordered ONE (10:24)
[2021-09-20] MEDS ORDERED: ePHEDrine SULFATE 25 MG/5 ML(5MG/ML) SYRINGE As Ordered ONE ×2 (11:31→13:20)
[2021-09-20] MEDS ORDERED: dexameTHASONE 4 MG/ML 1ML VIAL (J1100 PER 1MG) As Ordered ONE ×2 (11:37→12:10)
[2021-09-20] MEDS ORDERED: PHENYLephrine 500MCG 5ML (100MCG/ML) SYRINGE As Ordered ONE ×2 (11:40→13:10)
[2021-09-20] MEDS ORDERED: BUPIVACAINE HCL 0.5% 10ML VIAL As Ordered ONE (12:10)
[2021-09-20] MEDS ORDERED: LIDOCAINE 1% MDV 20ML VIAL As Ordered ONE (12:10)
[2021-09-20] MEDS ORDERED: ACETAMINOPHEN 1000MG 100ML IV BTL (OFIRMEV) (J0131 PER 10MG) As Ordered ONE (12:52)
[2021-09-20] MEDS ORDERED: HYDR-3713 PO (14:24)
[2021-09-20] MEDS ORDERED: PERCOCET 5MG/325MG TAB PO PRN (14:30)
[2021-09-20] MEDS ORDERED: fentaNYL 100 MCG/2 ML INJECTION (J3010) IV PRN (14:30)
[2021-09-20] MEDS ORDERED: ONDANSETRON 4MG/2ML VIAL IV PRN (14:30)
[2021-09-20] MEDS ORDERED: LR 1,000 ML IV SCH (14:30)
[2021-09-20 15:20] VITALS: BP 121/68
== END 2021-09-20 15:41 | disposition home or self-care (01) ==
LOC: M SDC 09:01
PROVIDERS: ATTEND Podiatrist Foot & Ankle Surgery
DX: M20.11 Hallux valgus (acquired), right foot (principal); T84.84XA Pain due to internal orthopedic prosthetic devices, implants and grafts, initial encounter; Y79.2 Prosthetic and other implants, materials and accessory orthopedic devices associated with adverse incidents; M20.41 Other hammer toe(s) (acquired), right foot; M19.90 Unspecified osteoarthritis, unspecified site; K22.70 Barrett's esophagus without dysplasia; J30.1 Allergic rhinitis due to pollen; Z86.718 Personal history of other venous thrombosis and embolism; Z98.84 Bariatric surgery status; R12 Heartburn; M54.9 Dorsalgia, unspecified; C50.911 Malignant neoplasm of unspecified site of right female breast; R32 Unspecified urinary incontinence; Z92.21 Personal history of antineoplastic chemotherapy; Z88.5 Allergy status to narcotic agent; Z91.018 Allergy to other foods; Z88.7 Allergy status to serum and vaccine; Z79.899 Other long term (current) drug therapy; Z79.811 Long term (current) use of aromatase inhibitors
CPT/HCPCS: 20680; 28232; 28299; 88300; 97116; C1713; J0131; J0690; J1100; J2250; J2370; J2405; J3010

== ENCOUNTER 2021-10-19 09:03 | Outpatient (RCR) | payer MEDICARE ==
[~2021-10-19 09:03] MED LIST changes: -D31000TA2 PO; +HYDR-3713 PO; -LR 1,000 ML IV ONE; +VITA100093 PO; -ceFAZolin SOD 2 GM in IV 1 EA IV ONE
== END 2021-10-30 ==
LOC: M PT 09:03
PROVIDERS: ATTEND General Practice
DX: G56.01 Carpal tunnel syndrome, right upper limb (principal); C50.511 Malignant neoplasm of lower-outer quadrant of right female breast

== ENCOUNTER → 2021-11-29 | Outpatient (CLI) | payer MEDICARE | LOC: M WHC 10:24 | PROVIDERS: ATTEND Nurse Practitioner Women's Health | DX: N63.13 Unspecified lump in the right breast, lower outer quadrant (principal); N63.14 Unspecified lump in the right breast, lower inner quadrant; Z85.3 Personal history of malignant neoplasm of breast; N60.11 Diffuse cystic mastopathy of right breast; N60.12 Diffuse cystic mastopathy of left breast | CPT/HCPCS: 76642; 77066; G0279 ==

== ENCOUNTER → 2021-12-13 | Outpatient (CLI) | payer MEDICARE ==
[~2021-12-13] MED LIST changes: +CALC-263 PO; +CALC500T52 PO; +COQ1200C3 PO; +CULT10CA4 PO; +EXEM25TA PO
[2021-12-13 16:05] VITALS: BP 130/72
== END ==
LOC: M WHCPRO 14:26
PROVIDERS: ATTEND Surgery
DX: R92.8 Other abnormal and inconclusive findings on diagnostic imaging of breast (principal); N63.21 Unspecified lump in the left breast, upper outer quadrant
CPT/HCPCS: 19083; 77065; 88305; G0279

== ENCOUNTER → 2021-12-26 | Outpatient (REF) | payer MEDICARE | LOC: M LAB REF 09:58 | PROVIDERS: ATTEND Nurse Practitioner Family | DX: K22.70 Barrett's esophagus without dysplasia (principal); K21.9 Gastro-esophageal reflux disease without esophagitis; R19.4 Change in bowel habit; R19.7 Diarrhea, unspecified ==

== ENCOUNTER → 2022-02-21 | Outpatient (CLI) | payer MEDICARE ==
[~2022-02-21] MED LIST changes: +LETR2.5T2 PO
== END ==
LOC: M ONCR 09:51
PROVIDERS: ATTEND General Practice
DX: C50.511 Malignant neoplasm of lower-outer quadrant of right female breast (principal); M25.50 Pain in unspecified joint; I89.0 Lymphedema, not elsewhere classified; Z79.811 Long term (current) use of aromatase inhibitors; Z79.899 Other long term (current) drug therapy; Z88.5 Allergy status to narcotic agent; Z88.7 Allergy status to serum and vaccine; Z91.018 Allergy to other foods; Z91.02 Food additives allergy status; Z92.3 Personal history of irradiation

== ENCOUNTER → 2022-03-07 | Outpatient (REF) | payer MEDICARE | LOC: M LAB REF 10:57 | PROVIDERS: ATTEND Nurse Practitioner Family | DX: R19.7 Diarrhea, unspecified (principal) ==

== ENCOUNTER → 2022-05-02 | Outpatient (RCR) | payer MEDICARE ==
[~2022-05-02] MED LIST changes: +TAMO20TA8 PO
== END ==
LOC: M PT 04-06 11:34
PROVIDERS: ATTEND General Practice
DX: I89.0 Lymphedema, not elsewhere classified (principal)

== ENCOUNTER → 2022-05-18 | Outpatient (CLI) | payer MEDICARE | LOC: M WHC 09:11 | PROVIDERS: ATTEND Nurse Practitioner Women's Health | DX: D24.2 Benign neoplasm of left breast (principal); Z85.3 Personal history of malignant neoplasm of breast; R92.8 Other abnormal and inconclusive findings on diagnostic imaging of breast | CPT/HCPCS: 77066; G0279 ==

== ENCOUNTER 2022-05-28 14:01 | Outpatient (RCR) | payer MEDICARE | END 2022-06-01 | LOC: M PT 14:01 | PROVIDERS: ATTEND General Practice | DX: I89.0 Lymphedema, not elsewhere classified (principal) ==

== ENCOUNTER 2022-06-29 12:35 | Outpatient (RCR) | payer MEDICARE | END 2022-07-02 23:59 | disposition home or self-care (01) | LOC: M PT 12:35 | PROVIDERS: ATTEND General Practice | DX: I89.0 Lymphedema, not elsewhere classified (principal) ==

== ENCOUNTER 2022-07-17 12:00 | Outpatient (RCR) | payer MEDICARE | END 2022-08-01 23:59 | disposition home or self-care (01) | LOC: M PT 12:00 | PROVIDERS: ATTEND General Practice | DX: I89.0 Lymphedema, not elsewhere classified (principal) ==

== ENCOUNTER 2022-08-02 08:29 | Outpatient (RCR) | payer MEDICARE | END 2022-09-01 | LOC: M PT 08:29 | PROVIDERS: ATTEND General Practice | DX: I89.0 Lymphedema, not elsewhere classified (principal) ==

== ENCOUNTER → 2022-08-02 | Outpatient (REF) | payer MEDICARE ==
[2022-08-02 19:17] LABS: APPEARANCE, URINE MANUAL CLEAR (CLEAR); COLOR, URINE MANUAL LT YELLOW (YELLOW); SPECIFIC GRAVITY,URINE MANUAL 1.005 (1.002-1.035)
[2022-08-02 19:18] LABS: BILIRUBIN, URINE MANUAL NEGATIVE (NEGATIVE); BLOOD URINE MANUAL NEGATIVE (NEGATIVE); GLUCOSE, URINE (UA) MANUAL NEGATIVE (NEGATIVE); KETONE, URINE MANUAL NEGATIVE (NEGATIVE); LEUKOCYTE ESTERASE, URINE MAN NEGATIVE (NEGATIVE); NITRITE, URINE MANUAL NEGATIVE (NEGATIVE); PROTEIN, URINE MANUAL NEGATIVE (NEGATIVE); UROBILINOGEN, URINE MANUAL NORMAL (NORMAL)
== END ==
LOC: M PLALAB 13:00
PROVIDERS: ATTEND Specialist
DX: N39.0 Urinary tract infection, site not specified (principal)

== ENCOUNTER → 2022-08-31 | Outpatient (CLI) | payer MEDICARE ==
[~2022-08-31] MED LIST changes: +GASTROGRAFIN SOLUTION 30ML As Ordered ONE; +ISOVUE-370 76% 100ML VIAL As Ordered ONE
== END ==
LOC: M RAD 12:49
PROVIDERS: ATTEND Specialist
DX: R10.2 Pelvic and perineal pain (principal)
CPT/HCPCS: 74178; Q9963; Q9967

== ENCOUNTER 2022-09-05 12:03 | Outpatient (RCR) | payer MEDICARE ==
[~2022-09-05 12:03] MED LIST changes: -GASTROGRAFIN SOLUTION 30ML As Ordered ONE; -ISOVUE-370 76% 100ML VIAL As Ordered ONE
== END 2022-10-02 ==
LOC: M PT 12:03
PROVIDERS: ATTEND General Practice
DX: I89.0 Lymphedema, not elsewhere classified (principal)

== ENCOUNTER → 2022-10-02 | Outpatient (CLI) | payer MEDICARE ==
[2022-10-02 09:50] LABS: HEMATOCRIT 42.4 % (36.0-47.0); HEMOGLOBIN 13.8 g/dl (12.0-15.5); MEAN CORPUSCULAR HEMOGLOBIN 31.3 pg (27.0-33.0); MEAN CORPUSCULAR HGB CONC 32.5 g/dl (32.0-36.5); MEAN CORPUSCULAR VOLUME 96.1 fl (80.0-96.0); PLATELET COUNT, AUTOMATED 219 10^3/uL (150-450); RED BLOOD COUNT 4.41 10^6/uL (4.00-5.40); WHITE BLOOD COUNT 4.1 10^3/uL (4.0-10.0)
[2022-10-02 10:27] LABS: BLOOD UREA NITROGEN 11 MG/DL (9-23); CALCIUM LEVEL 8.8 MG/DL (8.3-10.6); CARBON DIOXIDE LEVEL 31 MMOL/L (20-31); CHLORIDE LEVEL 103 MMOL/L (98-107); CREATININE FOR GFR 0.56 MG/DL (0.55-1.30); GLOMERULAR FILTRATION RATE > 60.0 (>45); GLUCOSE, FASTING 98 MG/DL (74-106); POTASSIUM SERUM 4.2 MMOL/L (3.5-5.1); SODIUM LEVEL 139 MMOL/L (136-145)
== END ==
LOC: M RAD 08:53
PROVIDERS: ATTEND Plastic Surgery Surgery of the Hand
DX: M54.07 Panniculitis affecting regions of neck and back, lumbosacral region (principal); M48.14 Ankylosing hyperostosis [Forestier], thoracic region

== ENCOUNTER → 2022-10-14 | Outpatient (CLI) | payer MEDICARE | LOC: M LABSMTC 11:58 | PROVIDERS: ATTEND Anesthesiology | DX: Z01.812 Encounter for preprocedural laboratory examination (principal); Z11.52 Encounter for screening for COVID-19 ==

== ENCOUNTER → 2022-10-17 | Outpatient (CLI) | payer MEDICARE ==
[~2022-10-17] MED LIST changes: +CALCTAB89 PO; +COLLPOW8 PO; +COQ1100C5 PO; +D 50CAP2 PO; +DICY10CA13 PO; +POTA99CA2 PO; +TURM1TAB PO; +ZENP1CAP63 PO
== END ==
LOC: M WHC 09:51
PROVIDERS: ATTEND Specialist
DX: C50.919 Malignant neoplasm of unspecified site of unspecified female breast (principal); Z79.899 Other long term (current) drug therapy; M85.851 Other specified disorders of bone density and structure, right thigh; M85.852 Other specified disorders of bone density and structure, left thigh

== ENCOUNTER 2022-10-18 08:59 | Observation (INO) | payer MEDICARE ==
[~2022-10-18] VITALS: Ht 160 cm; Wt 81.6 kg
[~2022-10-18 08:59] MED LIST changes: -CALCTAB89 PO; -COLLPOW8 PO; -COQ1100C5 PO; -D 50CAP2 PO; -DICY10CA13 PO; +HEPARIN SOD (PORCINE) 5000UNITS/ML 1ML VIAL/SYRINGE SQ ONE; -POTA99CA2 PO; -TURM1TAB PO; -ZENP1CAP63 PO; +ceFAZolin SOD 2 GM in IV 1 EA IV ONE
[2022-10-18] MEDS ORDERED: LR 1,000 ML IV SCH (09:05)
[2022-10-18] MEDS ORDERED: propofoL 200 MG/20 ML VIAL As Ordered ONE (10:09)
[2022-10-18] MEDS ORDERED: ROCURONIUM BROMIDE 50MG/5ML VIAL As Ordered ONE (10:09)
[2022-10-18] MEDS ORDERED: LIDOCAINE 2% 100MG/5ML SDV (FOR ANES.) As Ordered ONE (10:09)
[2022-10-18] MEDS ORDERED: ONDANSETRON 4MG 2ML VIAL As Ordered ONE (10:09)
[2022-10-18] MEDS ORDERED: MIDAZOLAM INJ 2MG/2ML VIAL As Ordered ONE (10:10)
[2022-10-18] MEDS ORDERED: fentaNYL 250 MCG/5 ML INJECTION As Ordered ONE (10:10)
[2022-10-18] MEDS ORDERED: COQ1100C5 PO (10:55)
[2022-10-18] MEDS ORDERED: COLLPOW8 PO (10:55)
[2022-10-18] MEDS ORDERED: ZENP1CAP63 PO (10:55)
[2022-10-18] MEDS ORDERED: CALCTAB89 PO (10:55)
[2022-10-18] MEDS ORDERED: D 50CAP2 PO (10:55)
[2022-10-18] MEDS ORDERED: TURM1TAB PO (10:58)
[2022-10-18] MEDS ORDERED: DICY10CA13 PO (11:01)
[2022-10-18] MEDS ORDERED: POTA99CA2 PO (11:01)
[2022-10-18] MEDS ORDERED: GENTAMICIN SULF 80MG/2ML VIAL As Ordered ONE (11:01)
[2022-10-18] MEDS ORDERED: BUPIVACAINE HCL 0.25% 10ML VIAL As Ordered ONE (11:01)
[2022-10-18] MEDS ORDERED: BUPIVACAINE LIPOSOME/PF 1.3% 20ML VIAL (13.3MG/ML)(EXPAREL) As Ordered ONE (11:02)
[2022-10-18] MEDS ORDERED: HOME MED LIST COMPLETE! XX SCH (11:10)
[2022-10-18] MEDS ORDERED: ePHEDrine SULFATE 25 MG/5 ML(5MG/ML) SYRINGE As Ordered ONE (12:33)
[2022-10-18] MEDS ORDERED: HYDROmorphone HCL 2MG/ML 1ML VIAL As Ordered ONE (13:27)
[2022-10-18] MEDS ORDERED: LACRILUBE (AKWA TEARS) OPHTH OINT 3.5GM As Ordered ONE (13:49)
[2022-10-18] MEDS ORDERED: SUGAMMADEX SODIUM 500 MG/5 ML VIAL (BRIDION) As Ordered ONE (14:14)
[2022-10-18] MEDS ORDERED: METOCLOPRAMIDE INJ 10MG/2ML VIAL As Ordered ONE (14:31)
[2022-10-18] MEDS ORDERED: fentaNYL 100 MCG/2 ML INJECTION IV PRN (15:20)
[2022-10-18] MEDS ORDERED: ONDANSETRON 4MG 2ML VIAL IV PRN ×2 (15:20)
[2022-10-18] MEDS ORDERED: oxyCODONE 5MG TAB PO PRN (15:20)
[2022-10-18] MEDS ORDERED: DICYCLOMINE 10 MG CAP PO PRN (15:25)
[2022-10-18 16:04] LABS: HEMATOCRIT 35.8 % (36.0-47.0); MEAN CORPUSCULAR HEMOGLOBIN 31.7 pg (27.0-33.0); MEAN CORPUSCULAR HGB CONC 33.5 g/dl (32.0-36.5); MEAN CORPUSCULAR VOLUME 94.5 fl (80.0-96.0); PLATELET COUNT, AUTOMATED 209 10^3/uL (150-450); RED BLOOD COUNT 3.79 10^6/uL (4.00-5.40); WHITE BLOOD COUNT 7.7 10^3/uL (4.0-10.0)
[2022-10-18 16:31] LABS: BLOOD UREA NITROGEN 10 MG/DL (9-23); CALCIUM LEVEL 8.1 MG/DL (8.3-10.6); CARBON DIOXIDE LEVEL 28 MMOL/L (20-31); CHLORIDE LEVEL 104 MMOL/L (98-107); CREATININE FOR GFR 0.53 MG/DL (0.55-1.30); GLOMERULAR FILTRATION RATE > 60.0 (>45); GLUCOSE, FASTING 150 MG/DL (74-106); SODIUM LEVEL 140 MMOL/L (136-145)
[2022-10-18 17:10] VITALS: BP 124/72
[2022-10-18] MEDS: LR 1,000 ML IV SCH ×2 (17:33→20:33)
[2022-10-18 18:07] VITALS: O2SAT 97
[2022-10-18 18:08] VITALS: O2SAT 92
[2022-10-18] MEDS: ACETAMINOPHEN TAB 650MG DOSE (2X325MG) PO PRN (18:58)
[2022-10-18] MEDS: oxyCODONE 5MG TAB PO PRN (20:33)
[2022-10-18] MEDS: ceFAZolin SOD 1 GM in D5W MINI-BAG PLUS 50 ML IV SCH (20:33)
[2022-10-18 21:00] VITALS: BP 113/60
[2022-10-19 02:00] VITALS: BP 102/58
[2022-10-19] MEDS: ceFAZolin SOD 1 GM in D5W MINI-BAG PLUS 50 ML IV SCH ×2 (03:24→12:18)
[2022-10-19] MEDS: oxyCODONE 5MG TAB PO PRN ×2 (03:24→10:50)
[2022-10-19 06:38] VITALS: BP 100/63
[2022-10-19 08:43] LABS: HEMATOCRIT 32.4 % (36.0-47.0); HEMOGLOBIN 10.8 g/dl (12.0-15.5); MEAN CORPUSCULAR HEMOGLOBIN 31.6 pg (27.0-33.0); MEAN CORPUSCULAR HGB CONC 33.3 g/dl (32.0-36.5); MEAN CORPUSCULAR VOLUME 94.7 fl (80.0-96.0); PLATELET COUNT, AUTOMATED 206 10^3/uL (150-450); RED BLOOD COUNT 3.42 10^6/uL (4.00-5.40); WHITE BLOOD COUNT 6.2 10^3/uL (4.0-10.0)
[2022-10-19] MEDS: oxyBUTYnin 5 MG TAB PO SCH (08:49)
[2022-10-19] MEDS: OMEPRAZOLE 20MG CAP PO SCH (08:49)
[2022-10-19] MEDS: PANCRELIPASE PO SCH ×3 (08:49→18:52)
[2022-10-19] MEDS ORDERED: ENTER DRUG NAME HERE (PATIENT'S OWN MED) PO SCH (09:00)
[2022-10-19 11:00] VITALS: BP 102/62
[2022-10-19] MEDS: LR 1,000 ML IV SCH (12:20)
[2022-10-19 14:00] VITALS: BP 95/55
[2022-10-19] MEDS: ACETAMINOPHEN TAB 650MG DOSE (2X325MG) PO PRN (17:01)
[2022-10-19 21:28] VITALS: BP 117/52
[2022-10-20] MEDS: oxyCODONE 5MG TAB PO PRN ×2 (02:06→14:37)
[2022-10-20 06:26] VITALS: BP 110/54
[2022-10-20] MEDS: ACETAMINOPHEN TAB 650MG DOSE (2X325MG) PO PRN (08:58)
[2022-10-20] MEDS: OMEPRAZOLE 20MG CAP PO SCH (08:58)
[2022-10-20] MEDS: PANCRELIPASE PO SCH ×2 (08:58→14:36)
[2022-10-20] MEDS: oxyBUTYnin 5 MG TAB PO SCH (08:58)
[2022-10-20] MEDS ORDERED: OXYC-517 PO (09:32)
[2022-10-20] MEDS ORDERED: MIRA3350 PO (09:32)
== END 2022-10-20 14:45 | disposition home or self-care (01) ==
LOC: M SDC 08:59 → M MS5PR 09:00
PROVIDERS: ADMIT Plastic Surgery Surgery of the Hand; ATTEND Plastic Surgery Surgery of the Hand
DX: M54.07 Panniculitis affecting regions of neck and back, lumbosacral region (principal); Z98.84 Bariatric surgery status; Z85.3 Personal history of malignant neoplasm of breast; Z92.21 Personal history of antineoplastic chemotherapy; Z92.3 Personal history of irradiation; Z79.811 Long term (current) use of aromatase inhibitors; K21.9 Gastro-esophageal reflux disease without esophagitis; Z88.5 Allergy status to narcotic agent; Z91.010 Allergy to peanuts; Z91.018 Allergy to other foods
CPT/HCPCS: 15830; 15847; 36415; 80048; 85027; 88300; 96366; 96375; 96376; C9290; G0378; J0690; J1100; J1170; J2250; J2405; J2765; J3010

== ENCOUNTER 2022-12-30 11:38 | Emergency (ER) | payer MEDICARE ==
[~2022-12-30] VITALS: Ht 160 cm; Wt 85.1 kg
[~2022-12-30 11:38] MED LIST changes: +ASPI81CH33 PO; +CALCTAB89 PO; +COLLPOW8 PO; +COQ1100C5 PO; +D 50CAP2 PO; +DICY10CA13 PO; -HEPARIN SOD (PORCINE) 5000UNITS/ML 1ML VIAL/SYRINGE SQ ONE; +MIRA3350 PO; +POTA99CA2 PO; +TURM1TAB PO; +ZENP1CAP63 PO; -ceFAZolin SOD 2 GM in IV 1 EA IV ONE
[2022-12-30] MEDS ORDERED: KETOROLAC 30 MG/ML 1ML VIAL IM ONE (13:15)
[2022-12-30] MEDS ORDERED: PRED20TA PO (14:13)
[2022-12-30 14:21] VITALS: BP 137/72
== END 2022-12-30 14:25 | disposition home or self-care (01) ==
LOC: M ED 11:38
DX: M54.50 Low back pain, unspecified (principal); M54.16 Radiculopathy, lumbar region; Z79.82 Long term (current) use of aspirin; Z79.899 Other long term (current) drug therapy; Z88.5 Allergy status to narcotic agent; Z88.7 Allergy status to serum and vaccine; Z88.8 Allergy status to other drugs, medicaments and biological substances; Z91.018 Allergy to other foods
CPT/HCPCS: 72110; 73502; 73564; 96372; 99283; J1885

== ENCOUNTER → 2023-02-04 | Outpatient (CLI) | payer MEDICARE ==
[~2023-02-04] MED LIST changes: +PRED20TA PO
[2023-02-04 10:00] LABS: HEMATOCRIT 39.3 % (36.0-47.0); HEMOGLOBIN 12.4 g/dl (12.0-15.5); MEAN CORPUSCULAR HEMOGLOBIN 29.3 pg (27.0-33.0); MEAN CORPUSCULAR HGB CONC 31.6 g/dl (32.0-36.5); MEAN CORPUSCULAR VOLUME 92.9 fl (80.0-96.0); PLATELET COUNT, AUTOMATED 249 10^3/uL (150-450); RED BLOOD COUNT 4.23 10^6/uL (4.00-5.40); WHITE BLOOD COUNT 3.8 10^3/uL (4.0-10.0)
[2023-02-04 10:32] LABS: PERCENT SATURATION 13.5 % (13.2-45.0)
[2023-02-04 10:34] LABS: FERRITIN 11.1 NG/ML (7.3-270.7)
[2023-02-04 10:35] LABS: TOTAL 25(OH) VITAMIN D 55.2 NG/ML (20.0-100.0)
== END ==
LOC: M LAB 08:44
PROVIDERS: ATTEND Internal Medicine Gastroenterology
DX: R10.31 Right lower quadrant pain (principal); D64.9 Anemia, unspecified; K22.70 Barrett's esophagus without dysplasia; R13.10 Dysphagia, unspecified; E55.9 Vitamin D deficiency, unspecified

== ENCOUNTER → 2023-02-22 | Outpatient (CLI) | payer MEDICARE | LOC: M ONCR 07:24 | PROVIDERS: ATTEND General Practice | DX: Z08 Encounter for follow-up examination after completed treatment for malignant neoplasm (principal); Z85.3 Personal history of malignant neoplasm of breast; I89.0 Lymphedema, not elsewhere classified; M19.90 Unspecified osteoarthritis, unspecified site; R22.41 Localized swelling, mass and lump, right lower limb; Z71.2 Person consulting for explanation of examination or test findings; Z79.811 Long term (current) use of aromatase inhibitors; Z79.891 Long term (current) use of opiate analgesic; Z79.899 Other long term (current) drug therapy; Z88.5 Allergy status to narcotic agent; Z91.018 Allergy to other foods; Z92.3 Personal history of irradiation; Z96.653 Presence of artificial knee joint, bilateral ==

== ENCOUNTER 2023-02-25 08:50 | Emergency (ER) | payer MEDICARE ==
[~2023-02-25] VITALS: Ht 160 cm; Wt 85.2 kg
[~2023-02-25 08:50] MED LIST changes: +DICY-61 PO; -DICY10CA13 PO
[2023-02-25 08:51] VITALS: TEMP 97.8; O2SAT 98
[2023-02-25] MEDS ORDERED: ACETAMINOPHEN 500 MG TAB PO ONE (11:35)
[2023-02-25 12:52] VITALS: BP 136/73
== END 2023-02-25 12:55 | disposition home or self-care (01) ==
LOC: M ED 08:50
DX: S63.501A Unspecified sprain of right wrist, initial encounter (principal); X58.XXXA Exposure to other specified factors, initial encounter; Y92.009 Unspecified place in unspecified non-institutional (private) residence as the place of occurrence of the external cause; Z85.3 Personal history of malignant neoplasm of breast; Z92.3 Personal history of irradiation; I89.0 Lymphedema, not elsewhere classified; K21.9 Gastro-esophageal reflux disease without esophagitis; Z98.84 Bariatric surgery status; Z96.653 Presence of artificial knee joint, bilateral; Z79.899 Other long term (current) drug therapy; Z88.5 Allergy status to narcotic agent; Z88.7 Allergy status to serum and vaccine; Z91.018 Allergy to other foods

== ENCOUNTER → 2023-04-01 | Outpatient (RCR) | payer MEDICARE | LOC: M PT 03-25 08:20 | PROVIDERS: ATTEND General Practice | DX: I89.0 Lymphedema, not elsewhere classified (principal) ==

== ENCOUNTER 2023-04-24 08:26 | Outpatient (RCR) | payer MEDICARE | END 2023-05-02 | LOC: M PT 08:26 | PROVIDERS: ATTEND General Practice | DX: I89.0 Lymphedema, not elsewhere classified (principal) ==

== ENCOUNTER → 2023-05-20 | Outpatient (CLI) | payer MEDICARE | LOC: M WHC 11:11 | PROVIDERS: ATTEND Nurse Practitioner Women's Health | DX: Z85.3 Personal history of malignant neoplasm of breast (principal); Z98.890 Other specified postprocedural states | CPT/HCPCS: 77066; G0279 ==

== ENCOUNTER 2023-06-28 08:28 | Outpatient (RCR) | payer MEDICARE ==
[~2023-06-28 08:28] MED LIST changes: +ASPI81TA26 PO; -OXYB5TAB10 PO; +OXYB5TAB11 PO
== END 2023-07-02 ==
LOC: M PT 08:28
PROVIDERS: ATTEND General Practice
DX: R60.0 Localized edema (principal); C50.511 Malignant neoplasm of lower-outer quadrant of right female breast

== ENCOUNTER → 2023-08-05 | Outpatient (CLI) | payer MEDICARE ==
[2023-08-05 15:15] LABS: BLOOD UREA NITROGEN 13 MG/DL (9-23); CREATININE FOR GFR 0.52 MG/DL (0.55-1.30); GLOMERULAR FILTRATION RATE > 60.0 (>45)
== END ==
LOC: M LAB 14:20
PROVIDERS: ATTEND Physician Assistant Surgical
DX: S52.515A Nondisplaced fracture of left radial styloid process, initial encounter for closed fracture (principal); X58.XXXA Exposure to other specified factors, initial encounter; Y92.9 Unspecified place or not applicable; Y93.9 Activity, unspecified; Y99.9 Unspecified external cause status

== ENCOUNTER → 2023-08-06 | Outpatient (CLI) | payer MEDICARE ==
[~2023-08-06] MED LIST changes: +PROHANCE 279.3MG/ML 15ML VIAL As Ordered ONE
== END ==
LOC: M RAD 15:58
PROVIDERS: ATTEND Physician Assistant Surgical
DX: S52.515A Nondisplaced fracture of left radial styloid process, initial encounter for closed fracture (principal)
CPT/HCPCS: 73223; A9576

== ENCOUNTER → 2023-12-31 | Outpatient (RCR) | payer MEDICARE ==
[~2023-12-31] MED LIST changes: +CHOL125C5 PO; +GABA600T4; -OXYB5TAB11 PO; +OXYB5TAB14 PO; -PROHANCE 279.3MG/ML 15ML VIAL As Ordered ONE
== END ==
LOC: M PT 08:17
PROVIDERS: ATTEND General Practice
DX: I89.0 Lymphedema, not elsewhere classified (principal)

== ENCOUNTER → 2024-01-23 | Outpatient (CLI) | payer MEDICARE | LOC: M RAD 07:09 | PROVIDERS: ATTEND Specialist | DX: C50.919 Malignant neoplasm of unspecified site of unspecified female breast (principal); M85.80 Other specified disorders of bone density and structure, unspecified site | CPT/HCPCS: 78306; A9503 ==

== ENCOUNTER → 2024-02-20 | Outpatient (CLI) | payer MEDICARE ==
[~2024-02-20] MED LIST changes: +ONDA-282 PO; -ONDA4TAB6 PO
== END ==
LOC: M ONCR 10:10
PROVIDERS: ATTEND General Practice
DX: C50.511 Malignant neoplasm of lower-outer quadrant of right female breast (principal); Z71.2 Person consulting for explanation of examination or test findings; Z79.811 Long term (current) use of aromatase inhibitors; Z79.82 Long term (current) use of aspirin; Z79.899 Other long term (current) drug therapy; Z88.7 Allergy status to serum and vaccine; Z91.018 Allergy to other foods; Z92.3 Personal history of irradiation; Z98.890 Other specified postprocedural states

== ENCOUNTER → 2024-05-26 | Outpatient (CLI) | payer MEDICARE ==
[~2024-05-26] MED LIST changes: +GABA-1490; -GABA600T4
== END ==
LOC: M WHC 08:57
PROVIDERS: ATTEND Specialist
DX: N64.4 Mastodynia (principal); Z85.3 Personal history of malignant neoplasm of breast; R92.333 Mammographic heterogeneous density, bilateral breasts; N60.11 Diffuse cystic mastopathy of right breast
CPT/HCPCS: 77066; G0279

== ENCOUNTER 2024-07-01 12:20 | Outpatient (RCR) | payer MEDICARE | END 2024-07-02 | LOC: M PT 12:20 | PROVIDERS: ATTEND General Practice | DX: C50.511 Malignant neoplasm of lower-outer quadrant of right female breast (principal); I89.0 Lymphedema, not elsewhere classified ==

== ENCOUNTER → 2024-08-29 | Outpatient (REF) | payer MEDICARE | LOC: M LAB REF 08:00 | PROVIDERS: ATTEND Nurse Practitioner Family | DX: K22.70 Barrett's esophagus without dysplasia (principal); K21.9 Gastro-esophageal reflux disease without esophagitis; R14.1 Gas pain; Q45.3 Other congenital malformations of pancreas and pancreatic duct; R19.7 Diarrhea, unspecified ==

== ENCOUNTER → 2025-06-25 | Outpatient (CLI) | payer MEDICARE ==
[~2025-06-25] MED LIST changes: +CHOL4PW PO; +DENO60SY2 SC; +DULO1CAP6 PO; -IBUP-1022 PO; +IBUP600T42 PO; -PROL60SO SC; -RA T500C2 PO; +TURM500C10 PO; +VIBE75TA; +VIBE75TA PO; +WHEA1TAB PO
== END ==
LOC: M WHC 11:42
PROVIDERS: ATTEND Specialist
DX: Z12.31 Encounter for screening mammogram for malignant neoplasm of breast (principal); Z53.9 Procedure and treatment not carried out, unspecified reason

== ENCOUNTER → 2025-07-06 | Outpatient (CLI) | payer MEDICARE | LOC: M WHC 10:45 | PROVIDERS: ATTEND Specialist | DX: C50.919 Malignant neoplasm of unspecified site of unspecified female breast (principal); R92.30 Dense breasts, unspecified | CPT/HCPCS: 77066; G0279 ==

== ENCOUNTER 2025-08-05 08:33 | Outpatient (RCR) | payer MEDICARE | END 2025-09-01 | LOC: M PT 08:33 | PROVIDERS: ATTEND General Practice | DX: I89.0 Lymphedema, not elsewhere classified (principal) ==